=== PATIENT | female | born 1990 | race Caucasian/White ===

== ENCOUNTER 2020-08-09 12:19 | Emergency (ER) | payer MEDICARE, MEDICAID, SELFPAY | END 2020-08-09 14:47 | disposition left against medical advice (07) | LOC: HO.ED 14:36 | PROVIDERS: Emergency Provider Internal Medicine; PCP Family Medicine | DX: K92.2 Gastrointestinal hemorrhage, unspecified (principal) | CPT/HCPCS: 99281 ==

== ENCOUNTER 2020-08-13 14:27 | Emergency (ER) | payer MEDICARE, MEDICAID, SELFPAY ==
--- NOTE | 2020-08-13 14:36 | ED.GIBLEED ---
HPI - GI Bleed General Chief complaint: GI Bleed Stated complaint: vomiting Time Seen by Provider: 08/13/20 14:30 Source: patient and EMS Mode of arrival: ambulatory Limitations: no limitations History of Present Illness HPI Narrative: patient history of alcoholic liver disease been vomiting blood for last 2 months off and on had endoscopy done in 05/24 which showed gastritis no varices seen no active bleeding been seen here several times for upper GI bleed all his goes AMA this time she he comes here for same with increased bleeding for last few days with blood clots patient did not have doing for last 2 days patient also claims that she been bleeding per rectum also joshua ayala MD complaint: gross hematemesis and gross hematochezia Onset (ago): month(s) (2) Pain Consistency: intermittent Severity: moderate Relieving factors: none Exacerbating factors: none Context: history of GI bleed, liver disease and hemorrhoids Associated symptoms: abdominal pain, nausea and vomiting Related Data Previous Rx's Medication Instructions Recorded pantoprazole 40 mg tablet,delayed 40 mg PO DAILY #1 tab 08/13/20 release sucralfate 100 mg/mL oral 10 ml PO BID #420 ml 08/13/20 suspension Allergies Allergy/AdvReac Type Severity Reaction Status Date / Time morphine [MORPHINE] Allergy Mild HIVES Unverified 07/22/20 17:44 banana [BANANA] AdvReac Severe DIFFICULTY Unverified 07/22/20 17:44 BREATHING morphine and related Allergy Unknown Uncoded 07/06/20 00:00 Review of Systems Review of Systems: REVIEW OF SYSTEMS: Pertinent positives and negatives are stated above in the history. GEN: no fevers, chills, fatigue HEENT: no nasal congestion, sore throat, ear pain NEURO: no headache, dizziness, focal weakness PULM: no cough, shortness of breath CV: no chest pain, palpitations, LE edema ABD: no diarrhea : no dysuria, urgency, frequency SKIN: no rash ROS otherwise negative x 10 PMFSH Past Medical History Medical History Asthma CHF (congestive heart failure) CVA (cerebral vascular accident) GI bleed Hepatitis Seizures Social History Social History Smoked in Last 30 Days: No Advance Directives: No Advance Directives Information Provided: Yes Physical Exam Vital Signs and I&O and Narrative: Vital Signs and I&O: Vital Signs Temp 98.5 F 08/13/20 14:42 Pulse 104 H 08/13/20 14:42 Resp 14 08/13/20 15:23 BP 108/69 08/13/20 14:42 Intake & Output 08/12/20 08/13/20 08/13/20 18:59 06:59 18:59 Weight 63.701 kg Body Mass Index 22.6 Appearance: Alert. Oriented X3. No acute distress. Eyes: Pupils equal, round and reactive to light. pallor++, icterus + ENT: Pharynx normal. Neck: Normal inspection. Neck supple. CVS: Normal heart rate and rhythm. Pulses normal. Respiratory: No respiratory distress. Breath sounds normal. Abdomen: Soft and tender epigastric area. , rectal: brown stool , hemoccult +ve Skin: Skin warm and dry. Normal skin color. Normal skin turgor. Extremities: No lower extremity edema NT , Good ROM. Neuro: Oriented X 3. No motor deficit. No sensory deficit.no asterixis Course Course Course Narrative: with upper GI bleed for last 2 months hemoglobin stable at 10 as she received 2 units of blood on 08/04. Patient did not vomit blood in the ER guaiac test is positive. Patient signed out to Dr. Townsend plan to admit, hospitalist aware MDM - GI Bleed Lab Data Result diagrams: 08/13/20 15:20 08/13/20 15:44 Labs: Lab Results 08/13/20 08/13/20 08/13/20 Range/Units 15:20 15:20 15:20 WBC 8.5 (4.8-10.8) X10*3/uL RBC 3.38 L (4.20-5.50) X10*6/uL Hgb 10.0 L (12.0-16.0) g/dl Hct 31.1 L (37-47) % MCV 92.0 (80-98) fL MCH 29.6 (27.0-33.0) pg MCHC 32.2 (31.0-35.0) g/dl RDW 20.7 H (11.0-16.0) % Plt Count 163 (160-400) X10*3/uL MPV 9.9 (9.4-12.3) fL Immature Gran % (Auto) 0.5 H (0.0-0.4) % Neut % (Auto) 74.0 H (45-73) % Lymph % (Auto) 18.1 L (20-40) % [place] % (Auto) 5.8 (2-11) % Eos % (Auto) 0.8 (0-4) % Baso % (Auto) 0.8 (0-2) % Lymph # (Auto) 1.5 (1.2-4.9) X10*3/uL [place] # (Auto) 0.5 (0.1-1.2) X10*3/uL Eos # (Auto) 0.1 (0.0-0.4) X10*3/uL Baso # (Auto) 0.1 (0.0-0.2) X10*3/uL Abs Immat Gran (auto) 0.04 H (0.00-0.03) X10*3/uL Absolute Neuts (auto) 6.3 (2.0-8.3) X10*3/uL Absolute Nucleated RBC 0.000 (0.0-0.012) X10*3/uL Nucleated RBC % (auto) 0.0 (0.0-0.2) /100WBC Sodium Cancelled Potassium Cancelled Chloride Cancelled Carbon Dioxide Cancelled Anion Gap Cancelled BUN Cancelled Creatinine Cancelled Estim Creat Clear Calc Cancelled Estimated GFR Cancelled Random Glucose Cancelled Calcium Cancelled Total Bilirubin Cancelled Direct Bilirubin Cancelled AST Cancelled ALT Cancelled Alkaline Phosphatase Cancelled Ammonia 54 (13-55) umol/L Total Protein Cancelled Albumin Cancelled Lipase Cancelled Ethyl Alcohol mg/dL 08/13/20 Range/Units 15:20 WBC (4.8-10.8) X10*3/uL RBC (4.20-5.50) X10*6/uL Hgb (12.0-16.0) g/dl Hct (37-47) % MCV (80-98) fL MCH (27.0-33.0) pg MCHC (31.0-35.0) g/dl RDW (11.0-16.0) % Plt Count (160-400) X10*3/uL MPV (9.4-12.3) fL Immature Gran % (Auto) (0.0-0.4) % Neut % (Auto) (45-73) % Lymph % (Auto) (20-40) % [place] % (Auto) (2-11) % Eos % (Auto) (0-4) % Baso % (Auto) (0-2) % Lymph # (Auto) (1.2-4.9) X10*3/uL [place] # (Auto) (0.1-1.2) X10*3/uL Eos # (Auto) (0.0-0.4) X10*3/uL Baso # (Auto) (0.0-0.2) X10*3/uL Abs Immat Gran (auto) (0.00-0.03) X10*3/uL Absolute Neuts (auto) (2.0-8.3) X10*3/uL Absolute Nucleated RBC (0.0-0.012) X10*3/uL Nucleated RBC % (auto) (0.0-0.2) /100WBC Sodium Potassium Chloride Carbon Dioxide Anion Gap BUN Creatinine Estim Creat Clear Calc Estimated GFR Random Glucose Calcium Total Bilirubin Direct Bilirubin AST ALT Alkaline Phosphatase Ammonia (13-55) umol/L Total Protein Albumin Lipase Ethyl Alcohol 182 mg/dL Discharge Plan Discharge Clinical Impression: Upper gastrointestinal hemorrhage, Acute alcoholic gastritis with hemorrhage Anemia Qualifiers: Anemia type: iron deficiency Iron deficiency anemia type: chronic blood loss Qualified Code(s): D50.0 - Iron deficiency anemia secondary to blood loss (chronic) Patient Disposition: Admitted As Inpatient
--- NOTE | 2020-08-13 14:37 | XR_ITS ---
EXAMINATION: XR CHEST CLINICAL INFORMATION: Hematemesis COMPARISON: Previous x-ray most recent July 2020 TECHNIQUE: Frontal view of the chest was obtained. FINDINGS: No significant abnormality is noted involving the heart, lungs, mediastinum, bony thorax or soft tissues. IMPRESSION: Unremarkable examination.
[2020-08-13 14:42] VITALS: BP 108/69; PULSE 104; RESP 18; TEMP 36.9; BMI 22.6
[2020-08-13 15:23] VITALS: RESP 14
[2020-08-13] MEDS: ondansetron HCL 4 MG/2 ML VIAL IVPUSH (15:23)
[2020-08-13] MEDS: 0.9 % Sodium Chloride 1,000 ML 999 ML IVCONT (15:23)
[2020-08-13] MEDS: HYDROmorphone HCl 1 MG/ML SYRINGE IVPUSH (15:23)
[2020-08-13] MEDS: Pantoprazole Sodium 40 MG/10 ML VIAL IVPUSH (15:23)
[2020-08-13 15:25] LABS: MANUAL DIFF FLAG NO
[2020-08-13 15:32] LABS: Basophils Absolute Auto 0.1 X10*3/uL (0.0-0.2); Basophils Percent Auto 0.8 % (0-2); Eosinophils Absolute Auto 0.1 X10*3/uL (0.0-0.4); Eosinophils Percent Auto 0.8 % (0-4); Hematocrit 31.1 % (37-47); Imm Gran Abs Auto 0.04 X10*3/uL (0.00-0.03); Imm Gran Pct Auto 0.5 % (0.0-0.4); Lymphocytes Absolute Auto 1.5 X10*3/uL (1.2-4.9); Lymphocytes Percent Auto 18.1 % (20-40); Mean Corpuscular HGB Conc 32.2 g/dl (31.0-35.0); Mean Corpuscular Hemoglobin 29.6 pg (27.0-33.0); Mean Platelet Volume 9.9 fL (9.4-12.3); Monocytes Absolute Auto 0.5 X10*3/uL (0.1-1.2); Monocytes Percent Auto 5.8 % (2-11); Neutrophils Absolute Auto 6.3 X10*3/uL (2.0-8.3); Platelet Count 163 X10*3/uL (160-400); Red Blood Count 3.38 X10*6/uL (4.20-5.50); Red Cell Distribution Width 20.7 % (11.0-16.0); White Blood Count 8.5 X10*3/uL (4.8-10.8)
[2020-08-13 15:52] LABS: Ammonia 54 umol/L (13-55)
[2020-08-13 15:56] LABS: Ethanol 182 mg/dL
[2020-08-13 16:27] LABS: Alanine Aminotransferase 25 U/L (0-31); Albumin Level 2.9 g/dL (3.5-5.0); Alkaline Phosphatase 296 U/L (39-117); Anion Gap 12 (12-20); Aspartate Amino Transferase 110 U/L (5-31); Bilirubin Direct 0.8 mg/dL (0.0-0.5); Blood Urea Nitrogen 3 mg/dL (9-16); Calcium 7.5 mg/dL (8.4-10.2); Carbon Dioxide 21 mmol/L (22-29); Chloride 109 mmol/L (96-108); Creatinine Clr Calc Pharmacy 153.9; Estimated Glomerular Filt Rate > 60; Glucose Random 84 mg/dL (60-115); Lipase 10 U/L (8-78); Magnesium 1.4 mg/dL (1.6-2.6); Potassium 3.2 mmol/l (3.3-5.1); Sodium 139 mmol/L (135-145); Total Protein 5.7 g/dL (6.5-8.0)
[2020-08-13 16:36] LABS: SARS COV2 PCR INHOUSE NEGATIVE (Negative)
[2020-08-13 16:42] LABS: Glucose Urine UA NEG (NEG); Leukocyte Esterase Urine NEG (NEG); Nitrite Urine NEG (NEG); Urine Blood NEG (NEG); Urine Ketones NEG (NEG); Urine Protein TRACE MG/DL (NEG-TRACE)
[2020-08-13 16:46] LABS: Appearance Urine HAZY; Color Urine AMBER
[2020-08-13 16:47] LABS: OBS Int Ctl Valid YES; OBS1 POS (NEG)
[2020-08-13 17:03] LABS: Amphetamine Screen Urine Not Detected (Not Detect); Barbiturates, Urine POSITIVE (Not Detect); Benzodiazepines Screen Urine Not Detected (Not Detect); Cannabinoid Screen Urine POSITIVE (Not Detect); Cocaine Screen Urine Not Detected (Not Detect); Opiate Screen Urine POSITIVE (Not Detect); Phencyclidine Screen Urine Not Detected (Not Detect)
[2020-08-13] MEDS: Potassium Chloride/H20 10 MEQ/100 ML PIGGYBACK 100 MEQ IV (17:17)
[2020-08-13] MEDS: Magnesium Sulfate/D5W 1 GM/100 ML PIGGYBACK IV (17:18)
--- NOTE | 2020-08-13 17:33 | P.HPIM_ITS ---
History of Present Illness Date of Service: 08/13/20 Chief Complaint: hematemesis this is a 30 year female with a history of alcoholic liver cirrhosis who presents to the emergency department with hematemesis. She was admitted multiple times recently in June and July for the same. during her last admission she left against medical advice on the 2nd day of her admission prior to scheduled EGD. She reports ongoing hematemesis and diffuse abdominal pain. She also reports a bright red blood per rectum. She denies fever chills. She continues to drink alcohol. Her H/ H was noted to be near her baseline. She was noted to have hypokalemia and hypo magnesemia. Her electrolytes were replaced and the decision was made to admit her for further management. Review of Systems Review of Systems: Yes all other systems are reviewed and are negative Constitutional: Constitutional: Denies chills and Denies fever(s) Cardiovascular: Cardiovascular: Denies chest pain Respiratory: Respiratory: Denies cough Gastrointestinal: Gastrointestinal: Reports hematochezia and Reports hematemesis FOR[facility]LY [facility], [facility] Medical History (Updated 08/13/20 @ 17:46 by FRANCIA Spence) Alcoholic cirrhosis of liver Asthma CHF (congestive heart failure) Chiari malformation CVA (cerebral vascular accident) Depression GI bleed Hepatitis C NSVT (nonsustained ventricular tachycardia) Peptic ulcer disease Seizure disorder Seizures Pertinent family history: coronary artery disease, stroke- father hypertension, diabetes - mother Surgical History (Updated 08/13/20 @ 17:46 by FRANCIA Spence) Gastric bypass status for obesity Hx of cholecystectomy Social History (Updated 08/13/20 @ 17:47 by FRANCIA Spence) Alcohol intake: current Alcohol intake frequency: 3 or more drinks per day Alcohol type: hard liquor Smoking Status: Current every day smoker Smoked in Last 30 Days: Yes Advance Directives: No Advance Directives Information Provided: Yes Meds Allergies Allergy/AdvReac Type Severity Reaction Status Date / Time morphine [MORPHINE] Allergy Mild HIVES Unverified 07/22/20 17:44 banana [BANANA] AdvReac Severe DIFFICULTY Unverified 07/22/20 17:44 BREATHING morphine and related Allergy Unknown Uncoded 07/06/20 00:00 Physical Exam Vital Signs and Narrative: Vital Signs: Last Vital Signs Temp 98.5 F 08/13/20 14:42 Pulse 104 H 08/13/20 14:42 Resp 14 08/13/20 15:23 BP 108/69 08/13/20 14:42 Body Mass Index 22.6 Const: Nutritional Appearance: well nourished Orientation/consciousness: patient oriented x3 HENMT: Head: Yes normocephalic and Yes atraumatic Eyes: Sclerae: sclerae normal Chest: Chest palpation & inspection: normal inspection of the chest Resp: Effort & Inspection: normal respiratory effort and no respiratory distress Auscultation: clear to auscultation bilaterally Cardio: Rate: regular rate Rhythm: regular rhythm GI: Palpation (GI): Soft to palpation and nontender Skin: General skin exam: no rashes or lesions noted Neuro: General: patient oriented x3 Cranial nerves: Yes CN's II-XII intact bilaterally and Yes Bilaterally intact EOM present Extrem: General: Yes normal to inspection Results Labs Labs: Laboratory Tests 08/13/20 08/13/20 08/13/20 15:20 15:20 15:20 WBC 8.5 RBC 3.38 L Hgb 10.0 L Hct 31.1 L MCV 92.0 MCH 29.6 MCHC 32.2 RDW 20.7 H Plt Count 163 MPV 9.9 Immature Gran % (Auto) 0.5 H Neut % (Auto) 74.0 H Lymph % (Auto) 18.1 L [place] % (Auto) 5.8 Eos % (Auto) 0.8 Baso % (Auto) 0.8 Lymph # (Auto) 1.5 [place] # (Auto) 0.5 Eos # (Auto) 0.1 Baso # (Auto) 0.1 Abs Immat Gran (auto) 0.04 H Absolute Neuts (auto) 6.3 Absolute Nucleated RBC 0.000 Nucleated RBC % (auto) 0.0 Sodium Cancelled Potassium Cancelled Chloride Cancelled Carbon Dioxide Cancelled Anion Gap Cancelled BUN Cancelled Creatinine Cancelled Estim Creat Clear Calc Cancelled Estimated GFR Cancelled Random Glucose Cancelled Calcium Cancelled Magnesium Total Bilirubin Cancelled Direct Bilirubin Cancelled AST Cancelled ALT Cancelled Alkaline Phosphatase Cancelled Ammonia 54 Total Protein Cancelled Albumin Cancelled Lipase Cancelled Urine Color Urine Appearance Urine pH Ur Specific [place] Urine Protein Urine Glucose (UA) Urine Ketones Urine Blood Urine Nitrite Ur Leukocyte Esterase Stool Occult Blood Urine Opiates Screen Ur Barbiturates Screen Ur Phencyclidine Scrn Ur Amphetamines Screen U Benzodiazepines Scrn Urine Cocaine Screen U Marijuana (THC) Screen Ethyl Alcohol Coronavirus (PCR) Blood Type Antibody Screen 08/13/20 08/13/20 08/13/20 15:20 15:20 15:44 WBC RBC Hgb Hct MCV MCH MCHC RDW Plt Count MPV Immature Gran % (Auto) Neut % (Auto) Lymph % (Auto) [place] % (Auto) Eos % (Auto) Baso % (Auto) Lymph # (Auto) [place] # (Auto) Eos # (Auto) Baso # (Auto) Abs Immat Gran (auto) Absolute Neuts (auto) Absolute Nucleated RBC Nucleated RBC % (auto) Sodium 139 Potassium 3.2 L Chloride 109 H Carbon Dioxide 21 L Anion Gap 12 BUN 3 L Creatinine 0.50 Estim Creat Clear Calc 153.9 Estimated GFR > 60 Random Glucose 84 Calcium 7.5 L Magnesium 1.4 L* Total Bilirubin 1.0 Direct Bilirubin 0.8 H AST 110 H ALT 25 Alkaline Phosphatase 296 H Ammonia Total Protein 5.7 L Albumin 2.9 L Lipase 10 Urine Color Urine Appearance Urine pH Ur Specific [place] Urine Protein Urine Glucose (UA) Urine Ketones Urine Blood Urine Nitrite Ur Leukocyte Esterase Stool Occult Blood Urine Opiates Screen Ur Barbiturates Screen Ur Phencyclidine Scrn Ur Amphetamines Screen U Benzodiazepines Scrn Urine Cocaine Screen U Marijuana (THC) Screen Ethyl Alcohol 182 Coronavirus (PCR) NEGATIVE Blood Type Antibody Screen 08/13/20 08/13/20 08/13/20 15:44 16:10 16:10 WBC RBC Hgb Hct MCV MCH MCHC RDW Plt Count MPV Immature Gran % (Auto) Neut % (Auto) Lymph % (Auto) [place] % (Auto) Eos % (Auto) Baso % (Auto) Lymph # (Auto) [place] # (Auto) Eos # (Auto) Baso # (Auto) Abs Immat Gran (auto) Absolute Neuts (auto) Absolute Nucleated RBC Nucleated RBC % (auto) Sodium Potassium Chloride Carbon Dioxide Anion Gap BUN Creatinine Estim Creat Clear Calc Estimated GFR Random Glucose Calcium Magnesium Total Bilirubin Direct Bilirubin AST ALT Alkaline Phosphatase Ammonia Total Protein Albumin Lipase Urine Color PATO Urine Appearance HAZY Urine pH 6.0 Ur Specific [place] 1.020 Urine Protein TRACE Urine Glucose (UA) NEG Urine Ketones NEG Urine Blood NEG Urine Nitrite NEG Ur Leukocyte Esterase NEG Stool Occult Blood Urine Opiates Screen POSITIVE H Ur Barbiturates Screen POSITIVE H Ur Phencyclidine Scrn Not Detected Ur Amphetamines Screen Not Detected U Benzodiazepines Scrn Not Detected Urine Cocaine Screen Not Detected U Marijuana (THC) Screen POSITIVE H Ethyl Alcohol Coronavirus (PCR) Blood Type O Negative Antibody Screen NEGATIVE 08/13/20 16:10 WBC RBC Hgb Hct MCV MCH MCHC RDW Plt Count MPV Immature Gran % (Auto) Neut % (Auto) Lymph % (Auto) [place] % (Auto) Eos % (Auto) Baso % (Auto) Lymph # (Auto) [place] # (Auto) Eos # (Auto) Baso # (Auto) Abs Immat Gran (auto) Absolute Neuts (auto) Absolute Nucleated RBC Nucleated RBC % (auto) Sodium Potassium Chloride Carbon Dioxide Anion Gap BUN Creatinine Estim Creat Clear Calc Estimated GFR Random Glucose Calcium Magnesium Total Bilirubin Direct Bilirubin AST ALT Alkaline Phosphatase Ammonia Total Protein Albumin Lipase Urine Color Urine Appearance Urine pH Ur Specific [place] Urine Protein Urine Glucose (UA) Urine Ketones Urine Blood Urine Nitrite Ur Leukocyte Esterase Stool Occult Blood POS Urine Opiates Screen Ur Barbiturates Screen Ur Phencyclidine Scrn Ur Amphetamines Screen U Benzodiazepines Scrn Urine Cocaine Screen U Marijuana (THC) Screen Ethyl Alcohol Coronavirus (PCR) Blood Type Antibody Screen Assessment and Plan (1) Acute alcoholic gastritis with hemorrhage: Status: Acute this is a 38-year-old female with a history of alcoholic liver cirrhosis who presents to the emergency department with Hematemesis hematemesis in the setting of alcoholic liver cirrhosis and history of PUD no known esophageal varices - IV Protonix - GI consult - NPO at midnight - follow CBC alcohol dependence evidence of alcohol withdrawal at this time - phenobarbital - thiamine, folate supplementation hypokalemia, hypo magnesemia related to alcohol use - tele monitoring - EKG - replace and follow DVT prophylaxis- mechanical devices code status- full code this case was discussed with Dr. Lerner
--- NOTE | 2020-08-13 17:35 | PM.EVENT ---
Event Note Event Note: Admission note Date of service 08/13/2020 the patient was seen and evaluated with FRANCIA Mas. I agree with her note, assessment and plan with the following. In summary, A 30 years old female with PMH of alcohol abuse, hepatitis-C, PUD, stroke with right-sided weakness, diabetes, post gastric bypass, portal hypertension among others who presents to the hospital complaining of hematemesis and blood per rectum. The patient reported excessive drinking alcohol of 12 nibs today along with few beers. She reported multiple episodes of vomiting over the last few weeks which she has been trying to prevent by holding down. For the last 2 days she noted blood with stool. She denies any fever, chills, shortness of breath or cough, chest pain. Hb levels higher than previous admission. the story is exactly the same as previous admission last month. Hematemesis GI bleeding Secondary to alcohol abuse Stable H&H, to monitor Started on IV Protonix Hold on transfusion Keep NPO after midnight Gentle IV fluid GI evaluation Rest of evaluations by FRANCIA note.
[2020-08-13 17:45] LABS: UPreg QC Valid YES; Urine Pregnancy NEGATIVE (NEGATIVE)
--- NOTE | 2020-08-13 18:15 | PC.NURSE ---
Pt voiced discontent with not having dilaudid ordered as part of her pain med regimen. Pt informed she was about to receive phenobarbitol. She stated she was ready to leave and no longer wants to be admitted. She removed her own meds infusing. This RN removed IV lines. Pt stated she would not sign AMA papertwork.
== END 2020-08-13 20:27 | disposition left against medical advice (07) ==
PROVIDERS: Emergency Provider Internal Medicine; PCP Family Medicine
DX: K29.21 Alcoholic gastritis with bleeding (principal); D50.0 Iron deficiency anemia secondary to blood loss (chronic); F10.129 Alcohol abuse with intoxication, unspecified; Y90.6 Blood alcohol level of 120-199 mg/100 ml; Z71.41 Alcohol abuse counseling and surveillance of alcoholic; Z79.899 Other long term (current) drug therapy; Z03.818 Encounter for observation for suspected exposure to other biological agents ruled out
CPT/HCPCS: 36415; 71045; 80048; 80076; 80307; 80320; 81003; 81025; 82140; 82272; 83690; 83735; 85025; 86850; 86900; 86901; 87635; 96361; 96365; 96372; 96375; 99284; J1170; J2405; J3475

== ENCOUNTER 2020-08-24 12:39 | Inpatient (IN) | payer MEDICARE, MEDICAID, SELFPAY ==
[2020-08-24 13:00] VITALS: BP 110/70; BP 98/53; PULSE 114; RESP 16; TEMP 37.8; O2SAT 100; BMI 22.6
--- NOTE | 2020-08-24 13:08 | ED.ABDPAIN ---
HPI - Abdominal Pain General Chief Complaint: Abdominal Pain Stated Complaint: R ABD PAIN, BLOOD URINE/STOOL Time Seen by Provider: 08/24/20 13:05 Source: patient Mode of arrival: ambulatory Limitations: no limitations History of Present Illness HPI narrative: 30 y/o female with history of heavy alcohol abuse with liver cirrhosis and ascites, hepatitis C, PUD, portal hypertesnion, s/p gastric bypass, hx CVA with right sided weakness, asthma, gastritis, GI bleed with acute blood loss anemia, hx hemorrhoids, NSVT, hx colitis who is presenting with right sided abdominal pain, N/V, diarrhea, bloody BM's and fevers at home. Also reports dark urine and decreased urination. Unable to tolerate PO at home. Has been able to drink ETOH, last was yeserday at 3pm. When she doesn't drink within 24 hours she starts to withdraw and have hallucinations. Related Data Previous Rx's Medication Instructions Recorded pantoprazole 40 mg tablet,delayed 40 mg PO DAILY #1 tab 08/17/20 release sucralfate 100 mg/mL oral 10 ml PO BID #420 ml 08/17/20 suspension trazodone 50 mg tablet 50 mg PO BEDTIME PRN 30 Days #30 08/17/20 tab Allergies Allergy/AdvReac Type Severity Reaction Status Date / Time morphine [MORPHINE] Allergy Mild HIVES Unverified 07/22/20 17:44 banana [BANANA] AdvReac Severe DIFFICULTY Unverified 07/22/20 17:44 BREATHING morphine and related Allergy Unknown Uncoded 07/06/20 00:00 Review of Systems Review of Systems Constitutional: + Fever, + Chills ENT/Mouth: No sore throat, No Rhinorrhea, No Swallowing Difficulty Eyes: No Eye Pain, No Swelling, No Redness Cardiovascular: No Chest Pain, No SOB, No Orthopnea, No Edema Respiratory: No Cough, No Sputum, No Wheezing, No dyspnea Gastrointestinal: + Nausea, + Vomiting, + Diarrhea, +abdominal Pain, + Hematochezia, + Melena Genitourinary: No Dysuria, No Urinary Frequency, + Hematuria Musculoskeletal: No joint pain, No Myalgias Skin: No Skin Lesions, No rash Neuro: No Weakness, No Numbness, No Dizziness, No Headache Psych: + Anxiety/Panic, + Depression Heme/Lymph: + Bruising, No Lymphadenopathy Endocrine: No Polyuria, No Polydipsia Physical Exam Vital Signs: Vital Signs: Vital Signs Temp Pulse Resp BP Pulse Ox 08/24/20 15:28 99 F 67 17 93/47 L 97 08/24/20 13:00 100.0 F 114 H 16 98/53 L 100 Body Mass Index 22.6 Appearance: Alert. Oriented X3. Tearful Eyes: Pupils equal, round and reactive to light. ENT: Pharynx normal. Neck: Normal inspection. Neck supple. CVS: tachycardic, regular rhythm. Pulses normal. Respiratory: No respiratory distress. Breath sounds normal. Abdomen: Soft, hepatomegaly, tender throughout right side of her abdomen. +guarding. +BS x4 ANA LUISA: external hemorrhoids, tender with thrombosis, no bleeding, light brown stool. Skin: Skin warm and dry. Normal skin color. Normal skin turgor. No rashes. Extremities: No lower extremity edema. Neuro: Oriented X 3. No motor deficit. No sensory deficit. Course Course Course Narrative: chronically ill young female with alcoholic liver disease - presenting with abd pain, N/V, GI bleeding. Has history of similar presentations, last end of Jul and left AMA before EGD could be performed. She state she has been dirnking heavily still and now having worsening pain, low grade fevers and GI bleeding - dark and red mixed for several days now. No SOB, chest pain, cough or other COVID symptoms. H/H stable from prior, does not require transfusion at this time. LFTs are up significantly from prior. hepatic discriminant function only 13, no role for steroids. given IVF and zosyn for possible infection - she reports urinary symptoms and has abd pain with history of ascites, possible SBP. CT scan showing probable cirrhosis and question colitis. Will treat given fever and new leukocytosis. Spoke with patient about admission and she is agreeable at this time. Hospitalist called for admission. Reevaluation(s) Reevaluation #1: patient continued to be nauseous after zofran and ativan. she is concerned she might be starting to withdraw from alcohol. additional ativan and antiemetics ordered. she is incontinent of stool at this time. flagyl added for colitis. Time: 16:21 Reevaluation #2: Spoke with hospitalist about admission - requesting phenobabital protocol for etoh withdrawal which was ordered. Will admit for further management. Time: 16:48 MDM - Abdominal Pain Lab Data Result diagrams: 08/24/20 13:46 08/24/20 14:25 Labs: Lab Results 08/24/20 08/24/20 08/24/20 Range/Units 13:46 13:46 13:47 WBC 13.5 H (4.8-10.8) X10*3/uL RBC 3.08 L (4.20-5.50) X10*6/uL Hgb 9.5 L (12.0-16.0) g/dl Hct 29.2 L (37-47) % MCV 94.8 (80-98) fL MCH 30.8 (27.0-33.0) pg MCHC 32.5 (31.0-35.0) g/dl RDW 20.1 H (11.0-16.0) % Plt Count 90 L D (160-400) X10*3/uL MPV 10.4 (9.4-12.3) fL Immature Gran % (Auto) 0.8 H (0.0-0.4) % Neut % (Auto) 83.2 H (45-73) % Lymph % (Auto) 9.9 L (20-40) % [place] % (Auto) 5.3 (2-11) % Eos % (Auto) 0.4 (0-4) % Baso % (Auto) 0.4 (0-2) % Lymph # (Auto) 1.3 (1.2-4.9) X10*3/uL [place] # (Auto) 0.7 (0.1-1.2) X10*3/uL Eos # (Auto) 0.1 (0.0-0.4) X10*3/uL Baso # (Auto) 0.1 (0.0-0.2) X10*3/uL Abs Immat Gran (auto) 0.11 H (0.00-0.03) X10*3/uL Absolute Neuts (auto) 11.2 H (2.0-8.3) X10*3/uL Absolute Nucleated RBC 0.000 (0.0-0.012) X10*3/uL Nucleated RBC % (auto) 0.0 (0.0-0.2) /100WBC PT Cancelled INR Cancelled APTT Cancelled Sodium (135-145) mmol/L Potassium (3.3-5.1) mmol/l Chloride (96-108) mmol/L Carbon Dioxide (22-29) mmol/L Anion Gap (12-20) BUN (9-16) mg/dL Creatinine (0.5-1.4) mg/dL Estim Creat Clear Calc Estimated GFR Random Glucose (60-115) mg/dL Lactic Acid (0.5-2.0) mmol/L Calcium (8.4-10.2) mg/dL Total Bilirubin (0.0-1.0) mg/dL Direct Bilirubin (0.0-0.5) mg/dL AST (5-31) U/L ALT (0-31) U/L Alkaline Phosphatase (39-117) U/L B-Natriuretic Peptide 57 (<100) pg/mL Total Protein (6.5-8.0) g/dL Albumin (3.5-5.0) g/dL Lipase (8-78) U/L Urine Color Urine Appearance Urine pH (5.0-8.0) Ur Specific [place] (1.005-1.025) Urine Protein (NEG-TRACE) MG/DL Urine Glucose (UA) (NEG) MG/DL Urine Ketones (NEG) MG/DL Urine Blood (NEG) Urine Nitrite (NEG) Ur Leukocyte Esterase (NEG) Urine RBC (0) /HPF Urine WBC (0-4) /HPF Ur Squamous Epith Cells /LPF Urine Bacteria /LPF Urine Mucus /LPF Urine Test (NEGATIVE) Stool Occult Blood (NEG) Urine Opiates Screen (Not Detect) Ur Barbiturates Screen (Not Detect) Ur Phencyclidine Scrn (Not Detect) Ur Amphetamines Screen (Not Detect) U Benzodiazepines Scrn (Not Detect) Urine Cocaine Screen (Not Detect) U Marijuana (THC) Screen (Not Detect) Ethyl Alcohol mg/dL Blood Type Antibody Screen 08/24/20 08/24/20 08/24/20 Range/Units 13:48 13:57 13:57 WBC (4.8-10.8) X10*3/uL RBC (4.20-5.50) X10*6/uL Hgb (12.0-16.0) g/dl Hct (37-47) % MCV (80-98) fL MCH (27.0-33.0) pg MCHC (31.0-35.0) g/dl RDW (11.0-16.0) % Plt Count (160-400) X10*3/uL MPV (9.4-12.3) fL Immature Gran % (Auto) (0.0-0.4) % Neut % (Auto) (45-73) % Lymph % (Auto) (20-40) % [place] % (Auto) (2-11) % Eos % (Auto) (0-4) % Baso % (Auto) (0-2) % Lymph # (Auto) (1.2-4.9) X10*3/uL [place] # (Auto) (0.1-1.2) X10*3/uL Eos # (Auto) (0.0-0.4) X10*3/uL Baso # (Auto) (0.0-0.2) X10*3/uL Abs Immat Gran (auto) (0.00-0.03) X10*3/uL Absolute Neuts (auto) (2.0-8.3) X10*3/uL Absolute Nucleated RBC (0.0-0.012) X10*3/uL Nucleated RBC % (auto) (0.0-0.2) /100WBC PT INR APTT Sodium (135-145) mmol/L Potassium (3.3-5.1) mmol/l Chloride (96-108) mmol/L Carbon Dioxide (22-29) mmol/L Anion Gap (12-20) BUN (9-16) mg/dL Creatinine (0.5-1.4) mg/dL Estim Creat Clear Calc Estimated GFR Random Glucose (60-115) mg/dL Lactic Acid 2.9 H* (0.5-2.0) mmol/L Calcium (8.4-10.2) mg/dL Total Bilirubin (0.0-1.0) mg/dL Direct Bilirubin (0.0-0.5) mg/dL AST (5-31) U/L ALT (0-31) U/L Alkaline Phosphatase (39-117) U/L B-Natriuretic Peptide (<100) pg/mL Total Protein (6.5-8.0) g/dL Albumin (3.5-5.0) g/dL Lipase (8-78) U/L Urine Color ORANGE Urine Appearance CLOUDY Urine pH 6.5 (5.0-8.0) Ur Specific [place] 1.020 (1.005-1.025) Urine Protein 2+ H (NEG-TRACE) MG/DL Urine Glucose (UA) 100 H (NEG) MG/DL Urine Ketones 15 (NEG) MG/DL Urine Blood TRACE (NEG) Urine Nitrite POS H (NEG) Ur Leukocyte Esterase TRACE H (NEG) Urine RBC 0-2 (0) /HPF Urine WBC 0 (0-4) /HPF Ur Squamous Epith Cells 2+ /LPF Urine Bacteria NONE /LPF Urine Mucus 3+ /LPF Urine Test NEGATIVE (NEGATIVE) Stool Occult Blood (NEG) Urine Opiates Screen Not Detected (Not Detect) Ur Barbiturates Screen POSITIVE H (Not Detect) Ur Phencyclidine Scrn Not Detected (Not Detect) Ur Amphetamines Screen Not Detected (Not Detect) U Benzodiazepines Scrn Not Detected (Not Detect) Urine Cocaine Screen Not Detected (Not Detect) U Marijuana (THC) Screen POSITIVE H (Not Detect) Ethyl Alcohol mg/dL Blood Type Antibody Screen 08/24/20 08/24/20 08/24/20 Range/Units 14:24 14:25 14:25 WBC (4.8-10.8) X10*3/uL RBC (4.20-5.50) X10*6/uL Hgb (12.0-16.0) g/dl Hct (37-47) % MCV (80-98) fL MCH (27.0-33.0) pg MCHC (31.0-35.0) g/dl RDW (11.0-16.0) % Plt Count (160-400) X10*3/uL MPV (9.4-12.3) fL Immature Gran % (Auto) (0.0-0.4) % Neut % (Auto) (45-73) % Lymph % (Auto) (20-40) % [place] % (Auto) (2-11) % Eos % (Auto) (0-4) % Baso % (Auto) (0-2) % Lymph # (Auto) (1.2-4.9) X10*3/uL [place] # (Auto) (0.1-1.2) X10*3/uL Eos # (Auto) (0.0-0.4) X10*3/uL Baso # (Auto) (0.0-0.2) X10*3/uL Abs Immat Gran (auto) (0.00-0.03) X10*3/uL Absolute Neuts (auto) (2.0-8.3) X10*3/uL Absolute Nucleated RBC (0.0-0.012) X10*3/uL Nucleated RBC % (auto) (0.0-0.2) /100WBC PT INR APTT Sodium 137 (135-145) mmol/L Potassium 3.0 L (3.3-5.1) mmol/l Chloride 104 (96-108) mmol/L Carbon Dioxide 22 (22-29) mmol/L Anion Gap 14 (12-20) BUN 8 L D (9-16) mg/dL Creatinine 0.57 (0.5-1.4) mg/dL Estim Creat Clear Calc 135.1 Estimated GFR > 60 Random Glucose 90 (60-115) mg/dL Lactic Acid (0.5-2.0) mmol/L Calcium 8.1 L (8.4-10.2) mg/dL Total Bilirubin 3.8 H (0.0-1.0) mg/dL Direct Bilirubin 3.0 H (0.0-0.5) mg/dL AST 112 H (5-31) U/L ALT 24 (0-31) U/L Alkaline Phosphatase 310 H (39-117) U/L B-Natriuretic Peptide (<100) pg/mL Total Protein 6.2 L (6.5-8.0) g/dL Albumin 3.0 L (3.5-5.0) g/dL Lipase 7 L (8-78) U/L Urine Color Urine Appearance Urine pH (5.0-8.0) Ur Specific [place] (1.005-1.025) Urine Protein (NEG-TRACE) MG/DL Urine Glucose (UA) (NEG) MG/DL Urine Ketones (NEG) MG/DL Urine Blood (NEG) Urine Nitrite (NEG) Ur Leukocyte Esterase (NEG) Urine RBC (0) /HPF Urine WBC (0-4) /HPF Ur Squamous Epith Cells /LPF Urine Bacteria /LPF Urine Mucus /LPF Urine Test (NEGATIVE) Stool Occult Blood (NEG) Urine Opiates Screen (Not Detect) Ur Barbiturates Screen (Not Detect) Ur Phencyclidine Scrn (Not Detect) Ur Amphetamines Screen (Not Detect) U Benzodiazepines Scrn (Not Detect) Urine Cocaine Screen (Not Detect) U Marijuana (THC) Screen (Not Detect) Ethyl Alcohol 29 mg/dL Blood Type O Negative Antibody Screen NEGATIVE 08/24/20 Range/Units 16:22 WBC (4.8-10.8) X10*3/uL RBC (4.20-5.50) X10*6/uL Hgb (12.0-16.0) g/dl Hct (37-47) % MCV (80-98) fL MCH (27.0-33.0) pg MCHC (31.0-35.0) g/dl RDW (11.0-16.0) % Plt Count (160-400) X10*3/uL MPV (9.4-12.3) fL Immature Gran % (Auto) (0.0-0.4) % Neut % (Auto) (45-73) % Lymph % (Auto) (20-40) % [place] % (Auto) (2-11) % Eos % (Auto) (0-4) % Baso % (Auto) (0-2) % Lymph # (Auto) (1.2-4.9) X10*3/uL [place] # (Auto) (0.1-1.2) X10*3/uL Eos # (Auto) (0.0-0.4) X10*3/uL Baso # (Auto) (0.0-0.2) X10*3/uL Abs Immat Gran (auto) (0.00-0.03) X10*3/uL Absolute Neuts (auto) (2.0-8.3) X10*3/uL Absolute Nucleated RBC (0.0-0.012) X10*3/uL Nucleated RBC % (auto) (0.0-0.2) /100WBC PT INR APTT Sodium (135-145) mmol/L Potassium (3.3-5.1) mmol/l Chloride (96-108) mmol/L Carbon Dioxide (22-29) mmol/L Anion Gap (12-20) BUN (9-16) mg/dL Creatinine (0.5-1.4) mg/dL Estim Creat Clear Calc Estimated GFR Random Glucose (60-115) mg/dL Lactic Acid (0.5-2.0) mmol/L Calcium (8.4-10.2) mg/dL Total Bilirubin (0.0-1.0) mg/dL Direct Bilirubin (0.0-0.5) mg/dL AST (5-31) U/L ALT (0-31) U/L Alkaline Phosphatase (39-117) U/L B-Natriuretic Peptide (<100) pg/mL Total Protein (6.5-8.0) g/dL Albumin (3.5-5.0) g/dL Lipase (8-78) U/L Urine Color Urine Appearance Urine pH (5.0-8.0) Ur Specific [place] (1.005-1.025) Urine Protein (NEG-TRACE) MG/DL Urine Glucose (UA) (NEG) MG/DL Urine Ketones (NEG) MG/DL Urine Blood (NEG) Urine Nitrite (NEG) Ur Leukocyte Esterase (NEG) Urine RBC (0) /HPF Urine WBC (0-4) /HPF Ur Squamous Epith Cells /LPF Urine Bacteria /LPF Urine Mucus /LPF Urine Test (NEGATIVE) Stool Occult Blood POS (NEG) Urine Opiates Screen (Not Detect) Ur Barbiturates Screen (Not Detect) Ur Phencyclidine Scrn (Not Detect) Ur Amphetamines Screen (Not Detect) U Benzodiazepines Scrn (Not Detect) Urine Cocaine Screen (Not Detect) U Marijuana (THC) Screen (Not Detect) Ethyl Alcohol mg/dL Blood Type Antibody Screen Discharge Plan Discharge Clinical Impression: Colitis, Acute alcoholic hepatitis, Acute GI bleeding, Hemorrhoids, Alcohol withdrawal Patient Disposition: Admitted As Inpatient Prescriptions: No Action trazodone 50 mg tablet 50 mg PO BEDTIME PRN (Reason: insomnia) 30 Days Qty: 30 RF: 0 sucralfate 100 mg/mL suspension 10 ml PO BID Qty: 420 RF: 1 pantoprazole 40 mg tablet,delayed release (DR/EC) 40 mg PO DAILY Qty: 1 RF: 3 PMFSH Past Medical History Attestation statement: The following information was validated with the patient. Medical History Alcoholic cirrhosis of liver Asthma CHF (congestive heart failure) Chiari malformation CVA (cerebral vascular accident) Depression GI bleed Hepatitis C NSVT (nonsustained ventricular tachycardia) Peptic ulcer disease Seizure disorder Seizures Surgical History (Updated 08/13/20 @ 17:46 by FRANCIA Spence) Gastric bypass status for obesity Hx of cholecystectomy Social History Social History (Updated 08/13/20 @ 17:47 by FRANCIA Spence) Alcohol intake: current Alcohol intake frequency: 3 or more drinks per day Alcohol type: beer and hard liquor Smoking Status: Current every day smoker Use of substances other than those prescribed or required for medical reasons: No Advance Directives: No Advance Directives Information Provided: No
[2020-08-24] MEDS: 0.9 % Sodium Chloride 1,000 ML 999 ML IVCONT ×2 (13:30→14:44)
[2020-08-24 13:53] LABS: MANUAL DIFF FLAG NO
--- NOTE | 2020-08-24 14:00 | PC.NURSE ---
PT ARRIVES VIA EMS C/O VOMITING SINCE YESTERDAY, HEMATURIA, ABD PAIN IN RUQ AND PELVIC AREA. RECENTLY DC'D FROM [facility] [place]. MILDLY JAUNDICED AT BASELINE, LABS DRAWN. 20G IN L HAND. FLUIDS HUNG.
[2020-08-24 14:04] LABS: Basophils Absolute Auto 0.1 X10*3/uL (0.0-0.2); Basophils Percent Auto 0.4 % (0-2); Eosinophils Absolute Auto 0.1 X10*3/uL (0.0-0.4); Eosinophils Percent Auto 0.4 % (0-4); Hematocrit 29.2 % (37-47); Hemoglobin 9.5 g/dl (12.0-16.0); Imm Gran Abs Auto 0.11 X10*3/uL (0.00-0.03); Imm Gran Pct Auto 0.8 % (0.0-0.4); Lymphocytes Absolute Auto 1.3 X10*3/uL (1.2-4.9); Lymphocytes Percent Auto 9.9 % (20-40); Mean Corpuscular HGB Conc 32.5 g/dl (31.0-35.0); Mean Corpuscular Hemoglobin 30.8 pg (27.0-33.0); Mean Corpuscular Volume 94.8 fL (80-98); Mean Platelet Volume 10.4 fL (9.4-12.3); Monocytes Absolute Auto 0.7 X10*3/uL (0.1-1.2); Monocytes Percent Auto 5.3 % (2-11); Neutrophils Absolute Auto 11.2 X10*3/uL (2.0-8.3); Neutrophils Percent Auto 83.2 % (45-73); Platelet Count 90 X10*3/uL (160-400); Red Blood Count 3.08 X10*6/uL (4.20-5.50); Red Cell Distribution Width 20.1 % (11.0-16.0); White Blood Count 13.5 X10*3/uL (4.8-10.8)
--- NOTE | 2020-08-24 14:09 | CT_ITS ---
EXAMINATION: CT ABDOMEN AND PELVIS WITH CONTRAST CLINICAL INFORMATION: Nausea, vomiting, diarrhea, fever and history of colitis. COMPARISON: None TECHNIQUE: Multidetector volumetric images were obtained from the superior aspect of the liver through the pubic symphysis following administration 85 mL of Omnipaque 350 intravenous contrast. Sagittal and coronal reformatted images were obtained on the technologist's workstation. Oral contrast: No This CT examination was performed using dose optimization techniques as appropriate, variously including the following: *Automated exposure control *Adjustment of mA and/or kV according to patient size (this includes techniques or standardized protocols for targeted exams where dose is matched to indication/reason for exam; i.e. extremities or head) *Use of iterative reconstruction technique DLP: 416 mGy-cm FINDINGS: LUNG BASES: The lung bases are clear. LIVER, GALLBLADDER, AND BILIARY TREE: The liver is enlarged in size, shape, and heterogeneous attenuation with areas of focal fatty sparing segment 4A and left hepatic lobe.. No focal hepatic lesion or biliary ductal dilatation is present. The gallbladder has been surgically removed. No biliary ductal dilatation seen. The portal vein slightly prominent but no collateral vessels seen. PANCREAS: Unremarkable. SPLEEN: Unremarkable. ADRENAL GLANDS: Unremarkable. KIDNEYS AND URETERS: The kidneys are normal in size, shape, and attenuation. No hydronephrosis, hydroureter, or calculi seen. No perinephric stranding. BLADDER: Unremarkable. GASTROINTESTINAL TRACT: There is mild nonspecific mural thickening involving the entire colon without distention. The small bowel loops are normal caliber. There is lipomatous ileocecal valve projecting within the cecum, slightly more prominent previous study. The stomach is nondistended with postsurgical sutures seen along the greater curvature. No free air or free fluid seen. There is minimal free fluid seen in the right pericolic gutter. Mild haziness seen throughout the mesentery question venous congestion. ABDOMINAL WALL: No significant hernia is appreciated. LYMPH NODES: Prominent retroperitoneal small lymph nodes and collateral vessels are seen in the upper and midabdomen. VASCULAR: Unremarkable. PELVIC VISCERA: No pelvic mass or free fluid seen. There is no abnormal pelvic lymph nodes. OSSEOUS STRUCTURES: No osseous abnormality seen. IMPRESSION: Hepatomegaly with heterogeneous appearing liver likely cirrhosis and fatty infiltration and some areas of focal fatty sparing seen. Patent portal vein with few collateral vessels in the retroperitoneum and splenic hilum. Few prominent lymph nodes are seen in the retroperitoneum as well. Mild venous congestion in the peritoneum with haziness. Minimal right pericolic fluid collection and mild mural thickening involving the ascending and right transverse colon, nonspecific question colitis. Similar findings were seen on the previous study. No new findings. No acute abnormality seen
[2020-08-24 14:11] LABS: Glucose Urine UA 100 MG/DL (NEG); Leukocyte Esterase Urine TRACE (NEG); PH 6.5 (5.0-8.0); Urine Blood TRACE (NEG); Urine Ketones 15 MG/DL (NEG); Urine Protein 2+ MG/DL (NEG-TRACE)
[2020-08-24 14:15] LABS: Appearance Urine CLOUDY; Color Urine ORANGE; Nitrite Urine POS (NEG)
[2020-08-24 14:26] LABS: Lactic Acid 2.9 mmol/L (0.5-2.0)
[2020-08-24 14:30] LABS: B Type Natriuretic Peptide 57 pg/mL (<100)
[2020-08-24 14:32] LABS: RBC Urine 0-2 /HPF (0); Squamous Epithelial Cell Urine 2+ /LPF; WBC Urine 0 /HPF (0-4)
[2020-08-24 14:33] LABS: Mucus Urine 3+ /LPF
[2020-08-24 14:36] LABS: UPreg QC Valid YES; Urine Pregnancy NEGATIVE (NEGATIVE)
[2020-08-24] MEDS: Piperacillin Sodium/Tazobactam 3.375 GM in 0.9 % Sodium Chloride 50 ML IV (14:43)
[2020-08-24] MEDS: ondansetron HCL 4 MG/2 ML VIAL IVPUSH (14:44)
[2020-08-24] MEDS: LORazepam 2 MG/ML VIAL 1 MG IVPUSH ×2 (14:44→16:37)
[2020-08-24 14:49] LABS: Amphetamine Screen Urine Not Detected (Not Detect); Barbiturates, Urine POSITIVE (Not Detect); Benzodiazepines Screen Urine Not Detected (Not Detect); Cannabinoid Screen Urine POSITIVE (Not Detect); Cocaine Screen Urine Not Detected (Not Detect); Opiate Screen Urine Not Detected (Not Detect); Phencyclidine Screen Urine Not Detected (Not Detect)
[2020-08-24 15:01] LABS: Ethanol 29 mg/dL
[2020-08-24 15:02] LABS: Alanine Aminotransferase 24 U/L (0-31); Alkaline Phosphatase 310 U/L (39-117); Anion Gap 14 (12-20); Aspartate Amino Transferase 112 U/L (5-31); Bilirubin Total 3.8 mg/dL (0.0-1.0); Blood Urea Nitrogen 8 mg/dL (9-16); Calcium 8.1 mg/dL (8.4-10.2); Carbon Dioxide 22 mmol/L (22-29); Chloride 104 mmol/L (96-108); Creatinine Clr Calc Pharmacy 135.1; Estimated Glomerular Filt Rate > 60; Glucose Random 90 mg/dL (60-115); Lipase 7 U/L (8-78); Sodium 137 mmol/L (135-145); Total Protein 6.2 g/dL (6.5-8.0)
[2020-08-24] MEDS: iohexoL 350 MG/ML 100 ML INFUS..BTL IV (15:24)
[2020-08-24 15:28] VITALS: BP 93/47; PULSE 67; RESP 17; TEMP 37.2; O2SAT 97
[2020-08-24 15:52] LABS: Reflex Lactate? Lactic Acid Added
[2020-08-24] MEDS: fentaNYL citrate/PF 100 MCG/2 ML VIAL 25 MCG IVPUSH (16:37)
[2020-08-24 16:38] LABS: OBS Int Ctl Valid YES; OBS1 POS (NEG)
--- NOTE | 2020-08-24 16:41 | PC.NURSE ---
PT CONTINUES TO DRY HEAVE. MOI RED BLOOD EXITING REAR END. PT UNDERSTAND PLAN TO ADMIT. MEDICATED PER EMR FOR ONGOING NAUSEA/PAIN.
[2020-08-24] MEDS: metroNIDAZOLE/NS 500 MG/100 ML PIGGYBACK 100 MG IV (17:18)
[2020-08-24 17:37] LABS: SARS COV2 PCR INHOUSE NEGATIVE (Negative)
[2020-08-24] MEDS: PHENobarbitaL sodium 130 MG/ML VIAL 190 MG IM (18:23)
--- NOTE | 2020-08-24 18:48 | PC.NURSE ---
PT REPORTED RELIEF WITH ANALGESICS GIVEN. THEN STATED I WANNA GO HOME PT WAS EXPLAINED CONSEQUENCES OF LEAVING AMA, AND ENCOURAGED TO STAY. WHEN ASKED WHY SHE WANTED TO LEAVE PT STATED WHEN I GO UPSTAIRS THEY DON'T DEAL WITH MY NAUSEA, THEY DON'T DEAL WITH MY PAIN. DOWN HERE IS FINE, BUT I DON'T WANNA GO UPSTAIRS. MY MOMS COMING TO PICK ME UP . IV REMOVED.
== END 2020-08-24 19:00 | disposition left against medical advice (07) | DRG 433 ==
LOC: HO.ED 16:50 → HO.IMC 17:47
PROVIDERS: Physician Assistant; Admitting Provider Internal Medicine; Emergency Provider Emergency Medicine; PCP Family Medicine; Visit Provider Internal Medicine
DX: K70.10 Alcoholic hepatitis without ascites (principal); F10.239 Alcohol dependence with withdrawal, unspecified; G40.909 Epilepsy, unspecified, not intractable, without status epilepticus; F17.210 Nicotine dependence, cigarettes, uncomplicated; Z71.6 Tobacco abuse counseling; Z20.828 Contact with and (suspected) exposure to other viral communicable diseases; Z98.84 Bariatric surgery status; Z88.5 Allergy status to narcotic agent; Z79.899 Other long term (current) drug therapy
CPT/HCPCS: 36415; 74177; 80048; 80076; 80307; 80320; 81001; 81025; 82272; 83605; 83690; 83880; 85025; 85610; 85730; 86850; 86900; 86901; 87040; 87086; 87635; 96361; 96365; 96367; 96372; 96375; 96376; 99284; 99285; J2060; J2405; J2560; J3010

== ENCOUNTER 2020-09-09 14:31 | Inpatient (IN) | payer MEDICARE, MEDICAID, SELFPAY ==
--- NOTE | 2020-09-09 | ECG_ITS ---
Test Reason : QTC Blood Pressure : / mmHG Vent. Rate : 106 BPM Atrial Rate : 106 BPM P-R Int : 142 ms QRS Dur : 086 ms QT Int : 392 ms P-R-T Axes : 024 039 020 degrees QTc Int : 520 ms Sinus tachycardia Nonspecific ST abnormality Abnormal ECG When compared with ECG of 03-AUG-2020 19:11, Heart rate has increased ST more depressed Inferior leads Lateral leads Referred By: Jose Granados Electronically Signed By:MOI GARCIA MD
[2020-09-09 14:53] VITALS: BP 103/64; BP 106/67; PULSE 81; PULSE 84; RESP 18; TEMP 36.6; O2SAT 100; O2SAT 98; BMI 27.1
--- NOTE | 2020-09-09 15:02 | ED.ABDPAIN ---
HPI - Abdominal Pain General Chief Complaint: Abdominal Pain <FRANCIA Bailon - Last Filed: 09/09/20 16:39> Stated Complaint: AB PAIN,VOMITING BLOOD X'S 1 MO,VILLARREAL DIZZY <FRANCIA Bailon - Last Filed: 09/09/20 16:39> Time Seen by Provider: 09/09/20 15:00 <FRANCIA Bailon - Last Filed: 09/09/20 16:39> Source: patient <FRANCIA Bailon - Last Filed: 09/09/20 16:39> Mode of arrival: ambulatory <FRANCIA Bailon - Last Filed: 09/09/20 16:39> Limitations: no limitations <FRANCIA Bailon Last Filed: 09/09/20 16:39> History of Present Illness HPI narrative: 30 y/o female with history of chronic alcohol abuse, liver cirrhosis with ascites, hx upper and lower GI bleed, colitis, depression/anxiety who is presenting with coffee-ground emesis, diffuse abdominal pain, fever of 103.2 at home. She has chronic diarrhea and recently has progressed to fecal incontinence. She denies LGIB at this time. Reports vomiting bright red blood a few weeks ago. Was seen here on 08/24 - had CT scan showing possible colitis and plan was for admission however patient left. She was concerned her pain and alcohol withdrawal symptoms were not going to be addressed if she was hospitalized. She went home and the vomiting changed to dark emesis and the abdominal pain persisted, mostly lower abdomen. She also states she has had decreased urination and urine is now dark orange. She has increased abdominal distention as well. She has been taking tylenol for pain. She has continued to drink alcohol, decreased from 12 to 9 nips per day; last drink at 3am today. She saw her doctor today in the office who encouraged her to come to the ER for evaluation and probable admission to the hospital. <FRANCIA Bailon - Last Filed: 09/09/20 16:39> MD elicited complaint: abdominal pain <FRANCIA Bailon Last Filed: 09/09/20 16:39> Pertinent past history: gastrointestinal bleeding and other (cirrhosis, alcohol abuse, colitis ) <FRANCIA Bailon - Last Filed: 09/09/20 16:39> Onset (ago): week(s) (3) <FRANCIA Bailon - Last Filed: 09/09/20 16:39> Pain Consistency: constant <FRANCIA Bailon Last Filed: 09/09/20 16:39> Location: diffuse <FRANCIA Bailon Last Filed: 09/09/20 16:39> Severity: severe <FRANCIA Bailon Last Filed: 09/09/20 16:39> Quality: stabbing and aching <FRANCIA Bailon - Last Filed: 09/09/20 16:39> Radiation: back <FRANCIA Bailon - Last Filed: 09/09/20 16:39> Exacerbating factors: vomiting and movement <FRANCIA Bailon Last Filed: 09/09/20 16:39> Relieving factors: nothing <FRANCIA Bailon Last Filed: 09/09/20 16:39> Context: history of similar episodes <FRANCIA Bailon Last Filed: 09/09/20 16:39> Associated symptoms: nausea, vomiting, diarrhea, fever, chills, hematemesis and hematuria <FRANCIA Bailon Last Filed: 09/09/20 16:39> Treatments prior to arrival: other (Tylenol ) <FRANCIA Bailon Last Filed: 09/09/20 16:39> Related Data Patient : No <FRANCIA Bailon Last Filed: 09/09/20 16:39> Home Medications: Home Medications Medication Instructions Recorded Confirmed midodrine 1 tab PO TID 09/09/20 09/09/20 mirtazapine 1 tab SUBLINGUAL BEDTIME 09/09/20 09/09/20 Previous Rx's Medication Instructions Recorded pantoprazole 40 mg tablet,delayed 40 mg PO DAILY #1 tab 08/17/20 release trazodone 50 mg tablet 50 mg PO BEDTIME PRN 30 Days #30 08/17/20 tab <FRANCIA Bailon Last Filed: 09/09/20 16:39> Allergies/Adverse Reactions: Allergies Allergy/AdvReac Type Severity Reaction Status Date / Time morphine [MORPHINE] Allergy Mild HIVES Unverified 07/22/20 17:44 banana [BANANA] AdvReac Severe DIFFICULTY Unverified 07/22/20 17:44 BREATHING morphine and related Allergy Unknown Uncoded 07/06/20 00:00 <FRANCIA Bailon - Last Filed: 09/09/20 16:39> Review of Systems Review of Systems Constitutional: + Fever, No Chills ENT/Mouth: No sore throat, No Rhinorrhea, No Swallowing Difficulty Eyes: No Eye Pain, No Swelling, No Redness Cardiovascular: No Chest Pain, No SOB, No Orthopnea, No Edema Respiratory: No Cough, No Sputum, No Wheezing, No dyspnea Gastrointestinal: + Nausea, + Vomiting, + Diarrhea, + abdominal Pain, No Hematochezia, No Melena, +hematemesis Genitourinary: No Dysuria, No Urinary Frequency, + Hematuria, +decreased urination Musculoskeletal: No joint pain, + Myalgias Skin: + Skin Lesions, No rash Neuro: + Weakness, No Numbness, No Dizziness, + Headache Psych: + Anxiety/Panic, + Depression Heme/Lymph: + Bruising, No Lymphadenopathy Endocrine: No Polyuria, No Polydipsia <FRANCIA Bailon Last Filed: 09/09/20 16:39> Physical Exam Vital Signs: Vital Signs: Last Vital Signs Temp 98.9 F 09/09/20 19:49 Pulse 98 09/09/20 19:49 Resp 18 09/09/20 17:26 BP 90/49 L 09/09/20 19:49 Pulse Ox 100 09/09/20 19:49 Body Mass Index 27.1 Appearance: Alert. Oriented X3. Mild scleral jaundice. patient appears chronically ill. Eyes: Pupils equal, round and reactive to light. ENT: Pharynx normal. Dry mucus membranes Neck: Normal inspection. Neck supple. CVS: Normal heart rate and rhythm. Pulses normal. Respiratory: No respiratory distress. Breath sounds normal. Abdomen: Softly distended with diffuse tenderness more so in lower abdomen, hepatomegaly. +BS x4 Skin: Skin warm and dry. Poor skin turgor. Areas of ecchymosis on RUE. Extremities: No lower extremity edema. Neuro: Oriented X 3. Generalized weakness. No sensory deficit. <FRANCIA Bailon Last Filed: 09/09/20 16:39> Vital Signs: Last Vital Signs Temp 98.9 F 09/09/20 19:49 Pulse 98 09/09/20 19:49 Resp 18 09/09/20 17:26 BP 90/49 L 09/09/20 19:49 Pulse Ox 100 09/09/20 19:49 Body Mass Index 27.1 <Brianda Trujillo NP - Last Filed: 09/09/20 23:53> Course Course Course Narrative: 30 y/o female with multiple comorbidities including ETOH abuse and ETOH cirrhosis with ascites and hx GI bleed, colitis presenting with fever at home, abdominal pain, and coffee ground emesis. Concern for UGIB, possible variceal given history of cirrhosis, however she denies bright red blood. More likely alcoholic gastritis or PUD. IV protonix ordered now, will hold off on octreotide and monitor for bleeding now. Full lab workup ordered including CBC, coags, type and screen, BMP, cultures and lactic acid. Concern for possible SBP or worsening colitis given she left AMA on 08/24 without antibiotics. STAT abd u/s ordered now to assess for ascites, if present will get dx and therapeutic paracentsis. Patient will require admission to the hospital. She agrees to admission and full work up. Zofran, Ativan, Fentanyl, Protonix and IVF ordered now. <FRANCIA Bailon - Last Filed: 09/09/20 16:39> Patient reports 9/10 pain, feels like she is withdrawing from alcohol at this time, and has nausea. We will give fentanyl, start phenobarbital protocol, and Phenergan. Labs are still pending. Once labs return we will decide CT with or without contrast based on her kidney function. at 6:03 p.m. lactic acid elevated at 2.7. This acidosis is secondary to alcoholism not sepsis. CT scan shows worsening colitis which now includes duodenum and jejunum. Discussion with hospitalist regarding plan of care, patient will be admitted for EtOH withdrawal and colitis. Lactic acid values are improving. <Brianda Trujillo NP - Last Filed: 09/09/20 23:53> Reevaluation(s) Reevaluation #1: No ascites on U/S. Paracentesis cancelled. Empiric Rocpehin and Flagyl ordered. Lab work still pending. Difficult stick, multiple nurses attempting placement at this time. <FRANCIA Bailon - Last Filed: 09/09/20 16:39> Time: 16:39 <FRANCIA Bailon - Last Filed: 09/09/20 16:39> Consultations Consultation #1: Ric Granados <Brianda Trujillo NP - Last Filed: 09/09/20 23:53> Time: 19:50 <Brianda Trujillo NP - Last Filed: 09/09/20 23:53> MDM - Abdominal Pain Differential Diagnosis Differential diagnosis: Likely abdominal pain, acute appendicitis, constipation, diverticulitis, gastroenteritis, gastritis, pancreatitis, peptic ulcer disease, renal colic and small bowel obstruction <FRANCIA Bailon - Last Filed: 09/09/20 16:39> Lab Data Result diagrams: : 09/09/20 16:47 09/09/20 16:47 <FRANCIA Bailon - Last Filed: 09/09/20 16:39> Labs: Lab Results 09/09/20 09/09/20 09/09/20 Range/Units 16:47 16:47 16:48 WBC 12.9 H (4.8-10.8) X10*3/uL RBC 2.82 L (4.20-5.50) X10*6/uL Hgb 9.3 L (12.0-16.0) g/dl Hct 28.2 L (37-47) % MCV 100.0 H (80-98) fL MCH 33.0 (27.0-33.0) pg MCHC 33.0 (31.0-35.0) g/dl RDW 25.0 H (11.0-16.0) % Plt Count 183 D (160-400) X10*3/uL MPV 8.8 L (9.4-12.3) fL Immature Gran % (Auto) 0.6 H (0.0-0.4) % Neut % (Auto) 74.4 H (45-73) % Lymph % (Auto) 18.0 L (20-40) % [place] % (Auto) 5.9 (2-11) % Eos % (Auto) 0.5 (0-4) % Baso % (Auto) 0.6 (0-2) % Lymph # (Auto) 2.3 (1.2-4.9) X10*3/uL [place] # (Auto) 0.8 (0.1-1.2) X10*3/uL Eos # (Auto) 0.1 (0.0-0.4) X10*3/uL Baso # (Auto) 0.1 (0.0-0.2) X10*3/uL Abs Immat Gran (auto) 0.08 H (0.00-0.03) X10*3/uL Absolute Neuts (auto) 9.6 H (2.0-8.3) X10*3/uL Absolute Nucleated RBC 0.000 (0.0-0.012) X10*3/uL Nucleated RBC % (auto) 0.0 (0.0-0.2) /100WBC PT 16.7 H (10.8-13.0) SEC INR 1.4 H (0.9-1.1) APTT 32.9 (24.1-38.0) SEC Sodium 141 (135-145) mmol/L Potassium 3.7 D (3.3-5.1) mmol/l Chloride 108 (96-108) mmol/L Carbon Dioxide 20 L (22-29) mmol/L Anion Gap 17 (12-20) BUN 4 L (9-16) mg/dL Creatinine 0.49 L (0.5-1.4) mg/dL Estim Creat Clear Calc 139.1 Estimated GFR > 60 Random Glucose 80 (60-115) mg/dL Lactic Acid (0.5-2.0) mmol/L Lactic Acid Fup @ 2Hr (0.5-2.0) mmol/L Calcium 7.2 L D (8.4-10.2) mg/dL Magnesium 1.7 (1.6-2.6) mg/dL Total Bilirubin 3.8 H (0.0-1.0) mg/dL Direct Bilirubin 2.7 H (0.0-0.5) mg/dL AST 177 H (5-31) U/L ALT 24 (0-31) U/L Alkaline Phosphatase 301 H (39-117) U/L B-Natriuretic Peptide (<100) pg/mL Total Protein 6.5 (6.5-8.0) g/dL Albumin 2.6 L (3.5-5.0) g/dL Lipase 26 (8-78) U/L Urine Color Urine Appearance Urine pH (5.0-8.0) Ur Specific [place] (1.005-1.025) Urine Protein (NEG-TRACE) MG/DL Urine Glucose (UA) (NEG) MG/DL Urine Ketones (NEG) MG/DL Urine Blood (NEG) Urine Nitrite (NEG) Ur Leukocyte Esterase (NEG) Urine RBC (0) /HPF Urine WBC (0-4) /HPF Ur Squamous Epith Cells /LPF Daniele Biurate Crystals /LPF Urine Bacteria /LPF Urine Test (NEGATIVE) Urine Opiates Screen (Not Detect) Acetaminophen (<30) mcg/mL Ur Barbiturates Screen (Not Detect) Ur Phencyclidine Scrn (Not Detect) Ur Amphetamines Screen (Not Detect) U Benzodiazepines Scrn (Not Detect) Urine Cocaine Screen (Not Detect) U Marijuana (THC) Screen (Not Detect) Ethyl Alcohol mg/dL Blood Type Antibody Screen 09/09/20 09/09/20 09/09/20 Range/Units 16:48 16:48 16:48 WBC (4.8-10.8) X10*3/uL RBC (4.20-5.50) X10*6/uL Hgb (12.0-16.0) g/dl Hct (37-47) % MCV (80-98) fL MCH (27.0-33.0) pg MCHC (31.0-35.0) g/dl RDW (11.0-16.0) % Plt Count (160-400) X10*3/uL MPV (9.4-12.3) fL Immature Gran % (Auto) (0.0-0.4) % Neut % (Auto) (45-73) % Lymph % (Auto) (20-40) % [place] % (Auto) (2-11) % Eos % (Auto) (0-4) % Baso % (Auto) (0-2) % Lymph # (Auto) (1.2-4.9) X10*3/uL [place] # (Auto) (0.1-1.2) X10*3/uL Eos # (Auto) (0.0-0.4) X10*3/uL Baso # (Auto) (0.0-0.2) X10*3/uL Abs Immat Gran (auto) (0.00-0.03) X10*3/uL Absolute Neuts (auto) (2.0-8.3) X10*3/uL Absolute Nucleated RBC (0.0-0.012) X10*3/uL Nucleated RBC % (auto) (0.0-0.2) /100WBC PT (10.8-13.0) SEC INR (0.9-1.1) APTT (24.1-38.0) SEC Sodium (135-145) mmol/L Potassium (3.3-5.1) mmol/l Chloride (96-108) mmol/L Carbon Dioxide (22-29) mmol/L Anion Gap (12-20) BUN (9-16) mg/dL Creatinine (0.5-1.4) mg/dL Estim Creat Clear Calc Estimated GFR Random Glucose (60-115) mg/dL Lactic Acid 2.7 H* (0.5-2.0) mmol/L Lactic Acid Fup @ 2Hr (0.5-2.0) mmol/L Calcium (8.4-10.2) mg/dL Magnesium Cancelled (1.6-2.6) mg/dL Total Bilirubin (0.0-1.0) mg/dL Direct Bilirubin (0.0-0.5) mg/dL AST (5-31) U/L ALT (0-31) U/L Alkaline Phosphatase (39-117) U/L B-Natriuretic Peptide 91 (<100) pg/mL Total Protein (6.5-8.0) g/dL Albumin (3.5-5.0) g/dL Lipase Cancelled (8-78) U/L Urine Color Urine Appearance Urine pH (5.0-8.0) Ur Specific [place] (1.005-1.025) Urine Protein (NEG-TRACE) MG/DL Urine Glucose (UA) (NEG) MG/DL Urine Ketones (NEG) MG/DL Urine Blood (NEG) Urine Nitrite (NEG) Ur Leukocyte Esterase (NEG) Urine RBC (0) /HPF Urine WBC (0-4) /HPF Ur Squamous Epith Cells /LPF Novi Biurate Crystals /LPF Urine Bacteria /LPF Urine Test (NEGATIVE) Urine Opiates Screen (Not Detect) Acetaminophen (<30) mcg/mL Ur Barbiturates Screen (Not Detect) Ur Phencyclidine Scrn (Not Detect) Ur Amphetamines Screen (Not Detect) U Benzodiazepines Scrn (Not Detect) Urine Cocaine Screen (Not Detect) U Marijuana (THC) Screen (Not Detect) Ethyl Alcohol mg/dL Blood Type Antibody Screen 09/09/20 09/09/20 09/09/20 Range/Units 16:48 16:49 16:49 WBC (4.8-10.8) X10*3/uL RBC (4.20-5.50) X10*6/uL Hgb (12.0-16.0) g/dl Hct (37-47) % MCV (80-98) fL MCH (27.0-33.0) pg MCHC (31.0-35.0) g/dl RDW (11.0-16.0) % Plt Count (160-400) X10*3/uL MPV (9.4-12.3) fL Immature Gran % (Auto) (0.0-0.4) % Neut % (Auto) (45-73) % Lymph % (Auto) (20-40) % [place] % (Auto) (2-11) % Eos % (Auto) (0-4) % Baso % (Auto) (0-2) % Lymph # (Auto) (1.2-4.9) X10*3/uL [place] # (Auto) (0.1-1.2) X10*3/uL Eos # (Auto) (0.0-0.4) X10*3/uL Baso # (Auto) (0.0-0.2) X10*3/uL Abs Immat Gran (auto) (0.00-0.03) X10*3/uL Absolute Neuts (auto) (2.0-8.3) X10*3/uL Absolute Nucleated RBC (0.0-0.012) X10*3/uL Nucleated RBC % (auto) (0.0-0.2) /100WBC PT (10.8-13.0) SEC INR (0.9-1.1) APTT (24.1-38.0) SEC Sodium (135-145) mmol/L Potassium (3.3-5.1) mmol/l Chloride (96-108) mmol/L Carbon Dioxide (22-29) mmol/L Anion Gap (12-20) BUN (9-16) mg/dL Creatinine (0.5-1.4) mg/dL Estim Creat Clear Calc Estimated GFR Random Glucose (60-115) mg/dL Lactic Acid (0.5-2.0) mmol/L Lactic Acid Fup @ 2Hr (0.5-2.0) mmol/L Calcium (8.4-10.2) mg/dL Magnesium (1.6-2.6) mg/dL Total Bilirubin (0.0-1.0) mg/dL Direct Bilirubin (0.0-0.5) mg/dL AST (5-31) U/L ALT (0-31) U/L Alkaline Phosphatase (39-117) U/L B-Natriuretic Peptide (<100) pg/mL Total Protein (6.5-8.0) g/dL Albumin (3.5-5.0) g/dL Lipase Cancelled (8-78) U/L Urine Color Urine Appearance Urine pH (5.0-8.0) Ur Specific [place] (1.005-1.025) Urine Protein (NEG-TRACE) MG/DL Urine Glucose (UA) (NEG) MG/DL Urine Ketones (NEG) MG/DL Urine Blood (NEG) Urine Nitrite (NEG) Ur Leukocyte Esterase (NEG) Urine RBC (0) /HPF Urine WBC (0-4) /HPF Ur Squamous Epith Cells /LPF Daniele Biurate Crystals /LPF Urine Bacteria /LPF Urine Test (NEGATIVE) Urine Opiates Screen (Not Detect) Acetaminophen < 1 (<30) mcg/mL Ur Barbiturates Screen (Not Detect) Ur Phencyclidine Scrn (Not Detect) Ur Amphetamines Screen (Not Detect) U Benzodiazepines Scrn (Not Detect) Urine Cocaine Screen (Not Detect) U Marijuana (THC) Screen (Not Detect) Ethyl Alcohol 282 mg/dL Blood Type Antibody Screen 09/09/20 09/09/20 09/09/20 Range/Units 16:49 16:50 16:50 WBC (4.8-10.8) X10*3/uL RBC (4.20-5.50) X10*6/uL Hgb (12.0-16.0) g/dl Hct (37-47) % MCV (80-98) fL MCH (27.0-33.0) pg MCHC (31.0-35.0) g/dl RDW (11.0-16.0) % Plt Count (160-400) X10*3/uL MPV (9.4-12.3) fL Immature Gran % (Auto) (0.0-0.4) % Neut % (Auto) (45-73) % Lymph % (Auto) (20-40) % [place] % (Auto) (2-11) % Eos % (Auto) (0-4) % Baso % (Auto) (0-2) % Lymph # (Auto) (1.2-4.9) X10*3/uL [place] # (Auto) (0.1-1.2) X10*3/uL Eos # (Auto) (0.0-0.4) X10*3/uL Baso # (Auto) (0.0-0.2) X10*3/uL Abs Immat Gran (auto) (0.00-0.03) X10*3/uL Absolute Neuts (auto) (2.0-8.3) X10*3/uL Absolute Nucleated RBC (0.0-0.012) X10*3/uL Nucleated RBC % (auto) (0.0-0.2) /100WBC PT (10.8-13.0) SEC INR (0.9-1.1) APTT (24.1-38.0) SEC Sodium (135-145) mmol/L Potassium (3.3-5.1) mmol/l Chloride (96-108) mmol/L Carbon Dioxide (22-29) mmol/L Anion Gap (12-20) BUN (9-16) mg/dL Creatinine (0.5-1.4) mg/dL Estim Creat Clear Calc Estimated GFR Random Glucose (60-115) mg/dL Lactic Acid (0.5-2.0) mmol/L Lactic Acid Fup @ 2Hr (0.5-2.0) mmol/L Calcium (8.4-10.2) mg/dL Magnesium (1.6-2.6) mg/dL Total Bilirubin (0.0-1.0) mg/dL Direct Bilirubin (0.0-0.5) mg/dL AST (5-31) U/L ALT (0-31) U/L Alkaline Phosphatase (39-117) U/L B-Natriuretic Peptide (<100) pg/mL Total Protein (6.5-8.0) g/dL Albumin (3.5-5.0) g/dL Lipase (8-78) U/L Urine Color ORANGE Urine Appearance TURBID Urine pH 6.5 (5.0-8.0) Ur Specific [place] 1.025 (1.005-1.025) Urine Protein 1+ H (NEG-TRACE) MG/DL Urine Glucose (UA) NEG (NEG) MG/DL Urine Ketones 5 (NEG) MG/DL Urine Blood NEG (NEG) Urine Nitrite POS H (NEG) Ur Leukocyte Esterase NEG (NEG) Urine RBC 0 (0) /HPF Urine WBC 0 (0-4) /HPF Ur Squamous Epith Cells TRACE /LPF Daniele Biurate Crystals 2+ /LPF Urine Bacteria 1+ /LPF Urine Test NEGATIVE (NEGATIVE) Urine Opiates Screen Not Detected (Not Detect) Acetaminophen (<30) mcg/mL Ur Barbiturates Screen POSITIVE H (Not Detect) Ur Phencyclidine Scrn Not Detected (Not Detect) Ur Amphetamines Screen Not Detected (Not Detect) U Benzodiazepines Scrn Not Detected (Not Detect) Urine Cocaine Screen Not Detected (Not Detect) U Marijuana (THC) Screen POSITIVE H (Not Detect) Ethyl Alcohol mg/dL Blood Type O Negative Antibody Screen NEGATIVE 09/09/20 Range/Units 19:05 WBC (4.8-10.8) X10*3/uL RBC (4.20-5.50) X10*6/uL Hgb (12.0-16.0) g/dl Hct (37-47) % MCV (80-98) fL MCH (27.0-33.0) pg MCHC (31.0-35.0) g/dl RDW (11.0-16.0) % Plt Count (160-400) X10*3/uL MPV (9.4-12.3) fL Immature Gran % (Auto) (0.0-0.4) % Neut % (Auto) (45-73) % Lymph % (Auto) (20-40) % [place] % (Auto) (2-11) % Eos % (Auto) (0-4) % Baso % (Auto) (0-2) % Lymph # (Auto) (1.2-4.9) X10*3/uL [place] # (Auto) (0.1-1.2) X10*3/uL Eos # (Auto) (0.0-0.4) X10*3/uL Baso # (Auto) (0.0-0.2) X10*3/uL Abs Immat Gran (auto) (0.00-0.03) X10*3/uL Absolute Neuts (auto) (2.0-8.3) X10*3/uL Absolute Nucleated RBC (0.0-0.012) X10*3/uL Nucleated RBC % (auto) (0.0-0.2) /100WBC PT (10.8-13.0) SEC INR (0.9-1.1) APTT (24.1-38.0) SEC Sodium (135-145) mmol/L Potassium (3.3-5.1) mmol/l Chloride (96-108) mmol/L Carbon Dioxide (22-29) mmol/L Anion Gap (12-20) BUN (9-16) mg/dL Creatinine (0.5-1.4) mg/dL Estim Creat Clear Calc Estimated GFR Random Glucose (60-115) mg/dL Lactic Acid (0.5-2.0) mmol/L Lactic Acid Fup @ 2Hr 2.3 H* (0.5-2.0) mmol/L Calcium (8.4-10.2) mg/dL Magnesium (1.6-2.6) mg/dL Total Bilirubin (0.0-1.0) mg/dL Direct Bilirubin (0.0-0.5) mg/dL AST (5-31) U/L ALT (0-31) U/L Alkaline Phosphatase (39-117) U/L B-Natriuretic Peptide (<100) pg/mL Total Protein (6.5-8.0) g/dL Albumin (3.5-5.0) g/dL Lipase (8-78) U/L Urine Color Urine Appearance Urine pH (5.0-8.0) Ur Specific [place] (1.005-1.025) Urine Protein (NEG-TRACE) MG/DL Urine Glucose (UA) (NEG) MG/DL Urine Ketones (NEG) MG/DL Urine Blood (NEG) Urine Nitrite (NEG) Ur Leukocyte Esterase (NEG) Urine RBC (0) /HPF Urine WBC (0-4) /HPF Ur Squamous Epith Cells /LPF Daniele Biurate Crystals /LPF Urine Bacteria /LPF Urine Test (NEGATIVE) Urine Opiates Screen (Not Detect) Acetaminophen (<30) mcg/mL Ur Barbiturates Screen (Not Detect) Ur Phencyclidine Scrn (Not Detect) Ur Amphetamines Screen (Not Detect) U Benzodiazepines Scrn (Not Detect) Urine Cocaine Screen (Not Detect) U Marijuana (THC) Screen (Not Detect) Ethyl Alcohol mg/dL Blood Type Antibody Screen <FRANCIA Bailon - Last Filed: 09/09/20 16:39> Lab Results 09/09/20 09/09/20 09/09/20 Range/Units 16:47 16:47 16:48 WBC 12.9 H (4.8-10.8) X10*3/uL RBC 2.82 L (4.20-5.50) X10*6/uL Hgb 9.3 L (12.0-16.0) g/dl Hct 28.2 L (37-47) % MCV 100.0 H (80-98) fL MCH 33.0 (27.0-33.0) pg MCHC 33.0 (31.0-35.0) g/dl RDW 25.0 H (11.0-16.0) % Plt Count 183 D (160-400) X10*3/uL MPV 8.8 L (9.4-12.3) fL Immature Gran % (Auto) 0.6 H (0.0-0.4) % Neut % (Auto) 74.4 H (45-73) % Lymph % (Auto) 18.0 L (20-40) % [place] % (Auto) 5.9 (2-11) % Eos % (Auto) 0.5 (0-4) % Baso % (Auto) 0.6 (0-2) % Lymph # (Auto) 2.3 (1.2-4.9) X10*3/uL [place] # (Auto) 0.8 (0.1-1.2) X10*3/uL Eos # (Auto) 0.1 (0.0-0.4) X10*3/uL Baso # (Auto) 0.1 (0.0-0.2) X10*3/uL Abs Immat Gran (auto) 0.08 H (0.00-0.03) X10*3/uL Absolute Neuts (auto) 9.6 H (2.0-8.3) X10*3/uL Absolute Nucleated RBC 0.000 (0.0-0.012) X10*3/uL Nucleated RBC % (auto) 0.0 (0.0-0.2) /100WBC PT 16.7 H (10.8-13.0) SEC INR 1.4 H (0.9-1.1) APTT 32.9 (24.1-38.0) SEC Sodium 141 (135-145) mmol/L Potassium 3.7 D (3.3-5.1) mmol/l Chloride 108 (96-108) mmol/L Carbon Dioxide 20 L (22-29) mmol/L Anion Gap 17 (12-20) BUN 4 L (9-16) mg/dL Creatinine 0.49 L (0.5-1.4) mg/dL Estim Creat Clear Calc 139.1 Estimated GFR > 60 Random Glucose 80 (60-115) mg/dL Lactic Acid (0.5-2.0) mmol/L Lactic Acid Fup @ 2Hr (0.5-2.0) mmol/L Calcium 7.2 L D (8.4-10.2) mg/dL Magnesium 1.7 (1.6-2.6) mg/dL Total Bilirubin 3.8 H (0.0-1.0) mg/dL Direct Bilirubin 2.7 H (0.0-0.5) mg/dL AST 177 H (5-31) U/L ALT 24 (0-31) U/L Alkaline Phosphatase 301 H (39-117) U/L B-Natriuretic Peptide (<100) pg/mL Total Protein 6.5 (6.5-8.0) g/dL Albumin 2.6 L (3.5-5.0) g/dL Lipase 26 (8-78) U/L Urine Color Urine Appearance Urine pH (5.0-8.0) Ur Specific [place] (1.005-1.025) Urine Protein (NEG-TRACE) MG/DL Urine Glucose (UA) (NEG) MG/DL Urine Ketones (NEG) MG/DL Urine Blood (NEG) Urine Nitrite (NEG) Ur Leukocyte Esterase (NEG) Urine RBC (0) /HPF Urine WBC (0-4) /HPF Ur Squamous Epith Cells /LPF Daniele Biurate Crystals /LPF Urine Bacteria /LPF Urine Test (NEGATIVE) Urine Opiates Screen (Not Detect) Acetaminophen (<30) mcg/mL Ur Barbiturates Screen (Not Detect) Ur Phencyclidine Scrn (Not Detect) Ur Amphetamines Screen (Not Detect) U Benzodiazepines Scrn (Not Detect) Urine Cocaine Screen (Not Detect) U Marijuana (THC) Screen (Not Detect) Ethyl Alcohol mg/dL Blood Type Antibody Screen 09/09/20 09/09/20 09/09/20 Range/Units 16:48 16:48 16:48 WBC (4.8-10.8) X10*3/uL RBC (4.20-5.50) X10*6/uL Hgb (12.0-16.0) g/dl Hct (37-47) % MCV (80-98) fL MCH (27.0-33.0) pg MCHC (31.0-35.0) g/dl RDW (11.0-16.0) % Plt Count (160-400) X10*3/uL MPV (9.4-12.3) fL Immature Gran % (Auto) (0.0-0.4) % Neut % (Auto) (45-73) % Lymph % (Auto) (20-40) % [place] % (Auto) (2-11) % Eos % (Auto) (0-4) % Baso % (Auto) (0-2) % Lymph # (Auto) (1.2-4.9) X10*3/uL [place] # (Auto) (0.1-1.2) X10*3/uL Eos # (Auto) (0.0-0.4) X10*3/uL Baso # (Auto) (0.0-0.2) X10*3/uL Abs Immat Gran (auto) (0.00-0.03) X10*3/uL Absolute Neuts (auto) (2.0-8.3) X10*3/uL Absolute Nucleated RBC (0.0-0.012) X10*3/uL Nucleated RBC % (auto) (0.0-0.2) /100WBC PT (10.8-13.0) SEC INR (0.9-1.1) APTT (24.1-38.0) SEC Sodium (135-145) mmol/L Potassium (3.3-5.1) mmol/l Chloride (96-108) mmol/L Carbon Dioxide (22-29) mmol/L Anion Gap (12-20) BUN (9-16) mg/dL Creatinine (0.5-1.4) mg/dL Estim Creat Clear Calc Estimated GFR Random Glucose (60-115) mg/dL Lactic Acid 2.7 H* (0.5-2.0) mmol/L Lactic Acid Fup @ 2Hr (0.5-2.0) mmol/L Calcium (8.4-10.2) mg/dL Magnesium Cancelled (1.6-2.6) mg/dL Total Bilirubin (0.0-1.0) mg/dL Direct Bilirubin (0.0-0.5) mg/dL AST (5-31) U/L ALT (0-31) U/L Alkaline Phosphatase (39-117) U/L B-Natriuretic Peptide 91 (<100) pg/mL Total Protein (6.5-8.0) g/dL Albumin (3.5-5.0) g/dL Lipase Cancelled (8-78) U/L Urine Color Urine Appearance Urine pH (5.0-8.0) Ur Specific [place] (1.005-1.025) Urine Protein (NEG-TRACE) MG/DL Urine Glucose (UA) (NEG) MG/DL Urine Ketones (NEG) MG/DL Urine Blood (NEG) Urine Nitrite (NEG) Ur Leukocyte Esterase (NEG) Urine RBC (0) /HPF Urine WBC (0-4) /HPF Ur Squamous Epith Cells /LPF Novi Biurate Crystals /LPF Urine Bacteria /LPF Urine Test (NEGATIVE) Urine Opiates Screen (Not Detect) Acetaminophen (<30) mcg/mL Ur Barbiturates Screen (Not Detect) Ur Phencyclidine Scrn (Not Detect) Ur Amphetamines Screen (Not Detect) U Benzodiazepines Scrn (Not Detect) Urine Cocaine Screen (Not Detect) U Marijuana (THC) Screen (Not Detect) Ethyl Alcohol mg/dL Blood Type Antibody Screen 09/09/20 09/09/20 09/09/20 Range/Units 16:48 16:49 16:49 WBC (4.8-10.8) X10*3/uL RBC (4.20-5.50) X10*6/uL Hgb (12.0-16.0) g/dl Hct (37-47) % MCV (80-98) fL MCH (27.0-33.0) pg MCHC (31.0-35.0) g/dl RDW (11.0-16.0) % Plt Count (160-400) X10*3/uL MPV (9.4-12.3) fL Immature Gran % (Auto) (0.0-0.4) % Neut % (Auto) (45-73) % Lymph % (Auto) (20-40) % [place] % (Auto) (2-11) % Eos % (Auto) (0-4) % Baso % (Auto) (0-2) % Lymph # (Auto) (1.2-4.9) X10*3/uL [place] # (Auto) (0.1-1.2) X10*3/uL Eos # (Auto) (0.0-0.4) X10*3/uL Baso # (Auto) (0.0-0.2) X10*3/uL Abs Immat Gran (auto) (0.00-0.03) X10*3/uL Absolute Neuts (auto) (2.0-8.3) X10*3/uL Absolute Nucleated RBC (0.0-0.012) X10*3/uL Nucleated RBC % (auto) (0.0-0.2) /100WBC PT (10.8-13.0) SEC INR (0.9-1.1) APTT (24.1-38.0) SEC Sodium (135-145) mmol/L Potassium (3.3-5.1) mmol/l Chloride (96-108) mmol/L Carbon Dioxide (22-29) mmol/L Anion Gap (12-20) BUN (9-16) mg/dL Creatinine (0.5-1.4) mg/dL Estim Creat Clear Calc Estimated GFR Random Glucose (60-115) mg/dL Lactic Acid (0.5-2.0) mmol/L Lactic Acid Fup @ 2Hr (0.5-2.0) mmol/L Calcium (8.4-10.2) mg/dL Magnesium (1.6-2.6) mg/dL Total Bilirubin (0.0-1.0) mg/dL Direct Bilirubin (0.0-0.5) mg/dL AST (5-31) U/L ALT (0-31) U/L Alkaline Phosphatase (39-117) U/L B-Natriuretic Peptide (<100) pg/mL Total Protein (6.5-8.0) g/dL Albumin (3.5-5.0) g/dL Lipase Cancelled (8-78) U/L Urine Color Urine Appearance Urine pH (5.0-8.0) Ur Specific [place] (1.005-1.025) Urine Protein (NEG-TRACE) MG/DL Urine Glucose (UA) (NEG) MG/DL Urine Ketones (NEG) MG/DL Urine Blood (NEG) Urine Nitrite (NEG) Ur Leukocyte Esterase (NEG) Urine RBC (0) /HPF Urine WBC (0-4) /HPF Ur Squamous Epith Cells /LPF Nov[place] Biurate Crystals /LPF Urine Bacteria /LPF Urine Test (NEGATIVE) Urine Opiates Screen (Not Detect) Acetaminophen < 1 (<30) mcg/mL Ur Barbiturates Screen (Not Detect) Ur Phencyclidine Scrn (Not Detect) Ur Amphetamines Screen (Not Detect) U Benzodiazepines Scrn (Not Detect) Urine Cocaine Screen (Not Detect) U Marijuana (THC) Screen (Not Detect) Ethyl Alcohol 282 mg/dL Blood Type Antibody Screen 09/09/20 09/09/20 09/09/20 Range/Units 16:49 16:50 16:50 WBC (4.8-10.8) X10*3/uL RBC (4.20-5.50) X10*6/uL Hgb (12.0-16.0) g/dl Hct (37-47) % MCV (80-98) fL MCH (27.0-33.0) pg MCHC (31.0-35.0) g/dl RDW (11.0-16.0) % Plt Count (160-400) X10*3/uL MPV (9.4-12.3) fL Immature Gran % (Auto) (0.0-0.4) % Neut % (Auto) (45-73) % Lymph % (Auto) (20-40) % [place] % (Auto) (2-11) % Eos % (Auto) (0-4) % Baso % (Auto) (0-2) % Lymph # (Auto) (1.2-4.9) X10*3/uL [place] # (Auto) (0.1-1.2) X10*3/uL Eos # (Auto) (0.0-0.4) X10*3/uL Baso # (Auto) (0.0-0.2) X10*3/uL Abs Immat Gran (auto) (0.00-0.03) X10*3/uL Absolute Neuts (auto) (2.0-8.3) X10*3/uL Absolute Nucleated RBC (0.0-0.012) X10*3/uL Nucleated RBC % (auto) (0.0-0.2) /100WBC PT (10.8-13.0) SEC INR (0.9-1.1) APTT (24.1-38.0) SEC Sodium (135-145) mmol/L Potassium (3.3-5.1) mmol/l Chloride (96-108) mmol/L Carbon Dioxide (22-29) mmol/L Anion Gap (12-20) BUN (9-16) mg/dL Creatinine (0.5-1.4) mg/dL Estim Creat Clear Calc Estimated GFR Random Glucose (60-115) mg/dL Lactic Acid (0.5-2.0) mmol/L Lactic Acid Fup @ 2Hr (0.5-2.0) mmol/L Calcium (8.4-10.2) mg/dL Magnesium (1.6-2.6) mg/dL Total Bilirubin (0.0-1.0) mg/dL Direct Bilirubin (0.0-0.5) mg/dL AST (5-31) U/L ALT (0-31) U/L Alkaline Phosphatase (39-117) U/L B-Natriuretic Peptide (<100) pg/mL Total Protein (6.5-8.0) g/dL Albumin (3.5-5.0) g/dL Lipase (8-78) U/L Urine Color ORANGE Urine Appearance TURBID Urine pH 6.5 (5.0-8.0) Ur Specific [place] 1.025 (1.005-1.025) Urine Protein 1+ H (NEG-TRACE) MG/DL Urine Glucose (UA) NEG (NEG) MG/DL Urine Ketones 5 (NEG) MG/DL Urine Blood NEG (NEG) Urine Nitrite POS H (NEG) Ur Leukocyte Esterase NEG (NEG) Urine RBC 0 (0) /HPF Urine WBC 0 (0-4) /HPF Ur Squamous Epith Cells TRACE /LPF [place] Biurate Crystals 2+ /LPF Urine Bacteria 1+ /LPF Urine Test NEGATIVE (NEGATIVE) Urine Opiates Screen Not Detected (Not Detect) Acetaminophen (<30) mcg/mL Ur Barbiturates Screen POSITIVE H (Not Detect) Ur Phencyclidine Scrn Not Detected (Not Detect) Ur Amphetamines Screen Not Detected (Not Detect) U Benzodiazepines Scrn Not Detected (Not Detect) Urine Cocaine Screen Not Detected (Not Detect) U Marijuana (THC) Screen POSITIVE H (Not Detect) Ethyl Alcohol mg/dL Blood Type O Negative Antibody Screen NEGATIVE 09/09/20 Range/Units 19:05 WBC (4.8-10.8) X10*3/uL RBC (4.20-5.50) X10*6/uL Hgb (12.0-16.0) g/dl Hct (37-47) % MCV (80-98) fL MCH (27.0-33.0) pg MCHC (31.0-35.0) g/dl RDW (11.0-16.0) % Plt Count (160-400) X10*3/uL MPV (9.4-12.3) fL Immature Gran % (Auto) (0.0-0.4) % Neut % (Auto) (45-73) % Lymph % (Auto) (20-40) % [place] % (Auto) (2-11) % Eos % (Auto) (0-4) % Baso % (Auto) (0-2) % Lymph # (Auto) (1.2-4.9) X10*3/uL [place] # (Auto) (0.1-1.2) X10*3/uL Eos # (Auto) (0.0-0.4) X10*3/uL Baso # (Auto) (0.0-0.2) X10*3/uL Abs Immat Gran (auto) (0.00-0.03) X10*3/uL Absolute Neuts (auto) (2.0-8.3) X10*3/uL Absolute Nucleated RBC (0.0-0.012) X10*3/uL Nucleated RBC % (auto) (0.0-0.2) /100WBC PT (10.8-13.0) SEC INR (0.9-1.1) APTT (24.1-38.0) SEC Sodium (135-145) mmol/L Potassium (3.3-5.1) mmol/l Chloride (96-108) mmol/L Carbon Dioxide (22-29) mmol/L Anion Gap (12-20) BUN (9-16) mg/dL Creatinine (0.5-1.4) mg/dL Estim Creat Clear Calc Estimated GFR Random Glucose (60-115) mg/dL Lactic Acid (0.5-2.0) mmol/L Lactic Acid Fup @ 2Hr 2.3 H* (0.5-2.0) mmol/L Calcium (8.4-10.2) mg/dL Magnesium (1.6-2.6) mg/dL Total Bilirubin (0.0-1.0) mg/dL Direct Bilirubin (0.0-0.5) mg/dL AST (5-31) U/L ALT (0-31) U/L Alkaline Phosphatase (39-117) U/L B-Natriuretic Peptide (<100) pg/mL Total Protein (6.5-8.0) g/dL Albumin (3.5-5.0) g/dL Lipase (8-78) U/L Urine Color Urine Appearance Urine pH (5.0-8.0) Ur Specific [place] (1.005-1.025) Urine Protein (NEG-TRACE) MG/DL Urine Glucose (UA) (NEG) MG/DL Urine Ketones (NEG) MG/DL Urine Blood (NEG) Urine Nitrite (NEG) Ur Leukocyte Esterase (NEG) Urine RBC (0) /HPF Urine WBC (0-4) /HPF Ur Squamous Epith Cells /LPF [place] Biurate Crystals /LPF Urine Bacteria /LPF Urine Test (NEGATIVE) Urine Opiates Screen (Not Detect) Acetaminophen (<30) mcg/mL Ur Barbiturates Screen (Not Detect) Ur Phencyclidine Scrn (Not Detect) Ur Amphetamines Screen (Not Detect) U Benzodiazepines Scrn (Not Detect) Urine Cocaine Screen (Not Detect) U Marijuana (THC) Screen (Not Detect) Ethyl Alcohol mg/dL Blood Type Antibody Screen <Brianda Trujillo NP - Last Filed: 09/09/20 23:53> Critical Care Time Critical Care Time Critical Care Time: Yes <Brianda Trujillo NP - Last Filed: 09/09/20 23:53> Total Critical Care Time: 60 <Brianda Trujillo NP - Last Filed: 09/09/20 23:53> Attestation: I have personally provided critical care time exclusive of time spent on separately billable procedures. Time includes review of laboratory data, radiology results, discussion with consultants, and monitoring for potential decompensation. Interventions were performed as documented. <Brianda Trujillo NP - Last Filed: 09/09/20 23:53> Discharge Plan Discharge Clinical Impression: Colitis, Acute alcoholic hepatitis, Alcohol abuse Alcohol withdrawal Qualifiers: Complication of substance-induced condition: with unspecified complication Qualified Code(s): F10.239 - Alcohol dependence with withdrawal, unspecified <FRANCIA Bailon - Last Filed: 09/09/20 16:39> Patient Disposition: Admitted As Inpatient <FRANCIA Bailon - Last Filed: 09/09/20 16:39> PMFSH Past Medical History Attestation statement: The following information was validated with the patient. <FRANCIA Bailon - Last Filed: 09/09/20 16:39> Medical History: Medical History Alcoholic cirrhosis of liver Asthma CHF (congestive heart failure) Chiari malformation CVA (cerebral vascular accident) Depression GI bleed Hepatitis C NSVT (nonsustained ventricular tachycardia) Peptic ulcer disease Seizure disorder Seizures <FRANCIA Bailon - Last Filed: 09/09/20 16:39> Surgical History: Surgical History Gastric bypass status for obesity Hx of cholecystectomy <FRANCIA Bailon - Last Filed: 09/09/20 16:39> Social History Social History: Social History Alcohol intake: current Alcohol intake frequency: 3 or more drinks per day Alcohol type: beer and hard liquor Smoking Status: Current every day smoker Advance Directives: No Advance Directives Information Provided: No <FRANCIA Bailon - Last Filed: 09/09/20 16:39>
--- NOTE | 2020-09-09 15:29 | US_ITS ---
EXAMINATION: US ABDOMEN LIMITED CLINICAL INFORMATION: Ascites check.. COMPARISON: CT abdomen and pelvis 08/24/2020. TECHNIQUE: Real-time imaging of the right upper quadrant abdominal viscera. FINDINGS: There is minimal fluid seen in the right lower quadrant, nothing substantiative to drain. US/US abdomen limited IMPRESSION: Minimal fluid in the right lower quadrant. Results were discussed with Renetta Scott by phone at 4:00 PM
[2020-09-09 16:30] VITALS: BP 103/64; PULSE 81; RESP 18; TEMP 36.6; O2SAT 100
[2020-09-09 16:58] LABS: MANUAL DIFF FLAG NO
[2020-09-09 17:07] LABS: Basophils Absolute Auto 0.1 X10*3/uL (0.0-0.2); Basophils Percent Auto 0.6 % (0-2); Eosinophils Absolute Auto 0.1 X10*3/uL (0.0-0.4); Eosinophils Percent Auto 0.5 % (0-4); Hematocrit 28.2 % (37-47); Hemoglobin 9.3 g/dl (12.0-16.0); Imm Gran Abs Auto 0.08 X10*3/uL (0.00-0.03); Imm Gran Pct Auto 0.6 % (0.0-0.4); Lymphocytes Absolute Auto 2.3 X10*3/uL (1.2-4.9); Mean Platelet Volume 8.8 fL (9.4-12.3); Monocytes Absolute Auto 0.8 X10*3/uL (0.1-1.2); Monocytes Percent Auto 5.9 % (2-11); Neutrophils Absolute Auto 9.6 X10*3/uL (2.0-8.3); Neutrophils Percent Auto 74.4 % (45-73); Platelet Count 183 X10*3/uL (160-400); Red Blood Count 2.82 X10*6/uL (4.20-5.50); White Blood Count 12.9 X10*3/uL (4.8-10.8)
[2020-09-09] MEDS: 0.9 % Sodium Chloride 1,000 ML 999 ML IVCONT ×3 (17:15→23:05)
[2020-09-09] MEDS: cefTRIAXone sodium 1 GM in 0.9 % Sodium Chloride 50 ML IV (17:15)
[2020-09-09] MEDS: fentaNYL citrate/PF 100 MCG/2 ML VIAL 50 MCG IVPUSH (17:15)
[2020-09-09 17:16] LABS: INTERNATIONAL NORM RATIO 1.4 (0.9-1.1); Prothrombin Time 16.7 SEC (10.8-13.0)
[2020-09-09] MEDS: ondansetron HCL 4 MG/2 ML VIAL IVPUSH (17:16)
[2020-09-09] MEDS: Pantoprazole Sodium 40 MG/10 ML VIAL IVPUSH (17:16)
[2020-09-09] MEDS: LORazepam 2 MG/ML VIAL 1 MG IVPUSH (17:17)
[2020-09-09 17:19] LABS: Partial Thromboplastin Time 32.9 SEC (24.1-38.0)
[2020-09-09 17:26] VITALS: BP 103/64; PULSE 81; RESP 18; TEMP 36.6; O2SAT 100
[2020-09-09 17:28] LABS: UPreg QC Valid YES; Urine Pregnancy NEGATIVE (NEGATIVE)
[2020-09-09 17:34] LABS: Amphetamine Screen Urine Not Detected (Not Detect); Barbiturates, Urine POSITIVE (Not Detect); Benzodiazepines Screen Urine Not Detected (Not Detect); Cannabinoid Screen Urine POSITIVE (Not Detect); Cocaine Screen Urine Not Detected (Not Detect); Opiate Screen Urine Not Detected (Not Detect); Phencyclidine Screen Urine Not Detected (Not Detect)
[2020-09-09 17:34] LABS: Ethanol 282 mg/dL
[2020-09-09 17:36] LABS: Acetaminophen LAB < 1 mcg/mL (<30)
[2020-09-09 17:37] LABS: B Type Natriuretic Peptide 91 pg/mL (<100)
[2020-09-09 17:39] LABS: Glucose Urine UA NEG (NEG); Leukocyte Esterase Urine NEG (NEG); Nitrite Urine POS (NEG); PH 6.5 (5.0-8.0); Specific Gravity - Urine 1.025 (1.005-1.025); Urine Blood NEG (NEG); Urine Ketones 5 MG/DL (NEG); Urine Protein 1+ MG/DL (NEG-TRACE)
[2020-09-09 17:47] LABS: Appearance Urine TURBID; Color Urine ORANGE
[2020-09-09 17:50] LABS: Alanine Aminotransferase 24 U/L (0-31); Albumin Level 2.6 g/dL (3.5-5.0); Alkaline Phosphatase 301 U/L (39-117); Anion Gap 17 (12-20); Aspartate Amino Transferase 177 U/L (5-31); Bilirubin Direct 2.7 mg/dL (0.0-0.5); Bilirubin Total 3.8 mg/dL (0.0-1.0); Blood Urea Nitrogen 4 mg/dL (9-16); Calcium 7.2 mg/dL (8.4-10.2); Carbon Dioxide 20 mmol/L (22-29); Chloride 108 mmol/L (96-108); Creatinine Clr Calc Pharmacy 139.1; Estimated Glomerular Filt Rate > 60; Glucose Random 80 mg/dL (60-115); Lipase 26 U/L (8-78); Magnesium 1.7 mg/dL (1.6-2.6); Potassium 3.7 mmol/l (3.3-5.1); Sodium 141 mmol/L (135-145); Total Protein 6.5 g/dL (6.5-8.0)
[2020-09-09 17:52] LABS: Bacteria Urine 1+ /LPF; RBC Urine 0 /HPF (0); Squamous Epithelial Cell Urine TRACE /LPF; WBC Urine 0 /HPF (0-4)
[2020-09-09 17:55] LABS: Lactic Acid 2.7 mmol/L (0.5-2.0)
--- NOTE | 2020-09-09 18:08 | CT_ITS ---
EXAMINATION: CT ABDOMEN AND PELVIS WITH CONTRAST CLINICAL INFORMATION: Abdominal pain. COMPARISON: Multiple prior studies. Most recent exam CT scan abdomen and pelvis 08/24/2020. Ultrasound of the abdomen limited 09/09/2020. TECHNIQUE: Multidetector volumetric images were obtained from the superior aspect of the liver through the pubic symphysis following administration 85 mL of Omnipaque 350 intravenous contrast. Sagittal and coronal reformatted images were obtained on the technologist's workstation. Oral contrast: No. This CT examination was performed using dose optimization techniques as appropriate, variously including the following: *Automated exposure control *Adjustment of mA and/or kV according to patient size (this includes techniques or standardized protocols for targeted exams where dose is matched to indication/reason for exam; i.e. extremities or head) *Use of iterative reconstruction technique DLP: 459 mGy-cm FINDINGS: LUNG BASES: The visualized lung bases are unremarkable. LIVER, GALLBLADDER, AND BILIARY TREE: The liver is enlarged. The right lobe of liver measures 23.5 cm superior-inferior. Liver is markedly heterogeneous in attenuation and has remained unchanged since prior CAT scan. No specific liver lesion evident. No intrahepatic bile duct dilatation. Status post cholecystectomy. PANCREAS: Unremarkable. SPLEEN: Unremarkable. ADRENAL GLANDS: Unremarkable. KIDNEYS AND URETERS: The kidneys are normal in size, shape, and attenuation. No hydronephrosis, hydroureter, or calculi seen. No perinephric stranding. BLADDER: Unremarkable. GASTROINTESTINAL TRACT: Surgical sutures of the stomach and proximal small bowel loops consistent with gastric bypass surgery. There is mild submucosal edema of the duodenum and proximal jejunal bowel loops without obstruction. This is new since the prior CAT scan of 08/24/2020. There is persistent mural thickening of the entire colon. This was present on the exam of 08/24/2020. Since prior exam there is increasing mural thickening of the proximal sigmoid colon but the remainder of the colon is similar to prior study. There is no point of obstruction. There is no air in the bowel wall. There is no portal venous gas. MESENTERY: Small to moderate volume of abdominal ascites. This is new since CAT scan 08/24/2020. There is no free air. No focal inflammation. ABDOMINAL WALL: No significant hernia is appreciated. LYMPH NODES: Stable small retroperitoneal lymph nodes. No bulky lymphadenopathy. VASCULAR: Normal enhancement of the vasculature of the abdomen and pelvis. This includes portal vein and splenic vein which are normally enhancing without occlusion or thrombus. PELVIC VISCERA: Unremarkable. OSSEOUS STRUCTURES: Unremarkable. CT/CT abdomen pelvis w con IMPRESSION: 1. Hepatomegaly. Diffuse heterogeneous low attenuation of liver parenchyma similar to prior CAT scan 08/24/2020. 2. Interval development of small to moderate volume of abdominal ascites. 3. Persistent diffuse edema and mural wall thickening of the entire colon. This is worsening in the sigmoid area since prior CAT scan 08/24/2020. 4. There is now submucosal edema and thickening of the wall of the duodenum and proximal jejunal bowel loops new since CAT scan 08/24/2020. 5. No evidence of portal venous gas. No air in the bowel wall. Normal enhancement of the abdominal vasculature. 6. Status post gastric bypass surgery.
[2020-09-09] MEDS: metroNIDAZOLE/NS 500 MG/100 ML PIGGYBACK 100 MG IV (18:11)
[2020-09-09] MEDS: diphenhydrAMINE HCL 50 MG/ML VIAL 25 MG IVPUSH (18:11)
[2020-09-09] MEDS: fentaNYL citrate/PF 100 MCG/2 ML VIAL 25 MCG IVPUSH (18:12)
[2020-09-09] MEDS: PHENobarbitaL sodium 130 MG/ML VIAL 218 MG IM (18:12)
[2020-09-09] MEDS: Metoclopramide HCl 10 MG/2 ML VIAL IVPUSH (18:12)
--- NOTE | 2020-09-09 18:22 | PC.NURSE ---
pt to ct scan
[2020-09-09] MEDS: iohexoL 350 MG/ML 100 ML INFUS..BTL IV (18:41)
[2020-09-09 18:57] LABS: Reflex Lactate? Lactic Acid Added
[2020-09-09 19:37] LABS: ~Lactic Acid-LAB USE ONLY 2.3 mmol/L (0.5-2.0)
[2020-09-09 19:49] VITALS: BP 90/49; PULSE 98; TEMP 37.2; O2SAT 100
--- NOTE | 2020-09-09 20:57 | P.HPIM_ITS ---
History of Present Illness Date of Service: 09/09/20 Chief Complaint: Nausea/Vomiting 30 y/o female with known hx of Alcohol abuse and colitis who preented from her PCP office due to intractable nausea and vomiting, abdominal pain and reporting vomiting blood. Patient is a very poor historian and not cooperative on giving hx. Patient reports that symptoms started since she had her last drink of alcohol around 2-3 am last night. Patient reports drinking heavily vodka but does not provide the amount of alcohol that drinks per day. Denies any chest pain, SOB or fever. Does reports occasional diarhea. Patient has been in our hospital in the past multiple times due to same symptoms of nausea, hematemesis and abdominal pain. Has signed out AMA in the past prior to having and GI work up and has refused detox admission previously. On presentation to the ED patient was noted to be borderline hypotensive now 90/49 mmHg and HR of 104 which improved after IV fluid administration. WBC of 12.9, Hgb of 9.3 (baseline), lactate of 107, total bili of 3.8 with direct of 2.7 (which improved from last time), UTI. Patient was given anti emetics, IV rocephin/flagyl and PPI. CT abdomen consistent for colitis, hepatomegaly and small ascites. Started on phenobarbital protocol per ED and decision for admission given. Patient seen and examined at the bedside, laying down in bed in no acute distress. Not cooperative. ROS as above otherwise negativce. Physical exam positive for diffuse abdominal tenderness but no evidence of masses on palpation. PAST MEDICAL HISTORY: 1. ALCOHOL INDUCED STEATOHEPATITIS 2. Alcohol dependence 3. chronic anemia 4. NSVT (nonsustained ventricular tachycardia) 5. 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 Chiari malformation. 2. Cholecystectomy. 3. Multiple EGDs. 4. Gastric bypass surgery. FAMILY HISTORY: CAD, HYPERTENSION, STROKE SOCIAL HISTORY: Drinks Alcohol Review of Systems Gastrointestinal: Gastrointestinal: Reports abdominal pain, Reports nausea, Re ports vomiting and Reports hematemesis [facility] Medical History Alcoholic cirrhosis of liver Asthma CHF (congestive heart failure) Chiari malformation CVA (cerebral vascular accident) Depression GI bleed Hepatitis C NSVT (nonsustained ventricular tachycardia) Peptic ulcer disease Seizure disorder Seizures Functional capacity: independent ambulation Family history: reviewed and not pertinent Surgical History Gastric bypass status for obesity Hx of cholecystectomy Social History Alcohol intake: current Alcohol intake frequency: 3 or more drinks per day Alcohol type: beer and hard liquor Smoking Status: Current every day smoker Advance Directives: No Advance Directives Information Provided: No Meds Allergies Allergy/AdvReac Type Severity Reaction Status Date / Time morphine [MORPHINE] Allergy Mild HIVES Unverified 07/22/20 17:44 banana [BANANA] AdvReac Severe DIFFICULTY Unverified 07/22/20 17:44 BREATHING morphine and related Allergy Unknown Uncoded 07/06/20 00:00 Home Medications Medication Instructions Recorded Confirmed Type midodrine 1 tab PO TID 09/09/20 09/09/20 History mirtazapine 1 tab SUBLINGUAL BEDTIME 09/09/20 09/09/20 History Physical Exam Vital Signs and Narrative: Vital Signs: Last Vital Signs Temp 98.9 F 09/09/20 19:49 Pulse 98 09/09/20 19:49 Resp 18 09/09/20 17:26 BP 90/49 L 09/09/20 19:49 Pulse Ox 100 09/09/20 19:49 Body Mass Index 27.1 Const: General: other (not cooperative but comfortable) Orientation/consciousness: patient oriented x3 HENMT: Head: Yes normal to inspection Eyes: General: appearance normal, both eyes and all related structures Neck: Yes normal visual inspection Chest: Chest palpation & inspection: normal inspection of the chest Resp: Effort & Inspection: normal respiratory effort Cardio: Jugular venous distension: no JVD Rhythm: regular rhythm Heart sounds: S1 normal heart sound present and S2 normal heart sound present GI: Inspection: Yes other (diffuse abdominal tenderness ) Skin: General skin exam: no rashes or lesions noted Neuro: General: patient oriented x3 Extrem: General: Yes normal to inspection Psych: Appearance: grossly normal Results Labs Labs: Laboratory Tests 09/09/20 09/09/20 09/09/20 16:47 16:47 16:48 WBC 12.9 H RBC 2.82 L Hgb 9.3 L Hct 28.2 L MCV 100.0 H MCH 33.0 MCHC 33.0 RDW 25.0 H Plt Count 183 D MPV 8.8 L Immature Gran % (Auto) 0.6 H Neut % (Auto) 74.4 H Lymph % (Auto) 18.0 L [place] % (Auto) 5.9 Eos % (Auto) 0.5 Baso % (Auto) 0.6 Lymph # (Auto) 2.3 [place] # (Auto) 0.8 Eos # (Auto) 0.1 Baso # (Auto) 0.1 Abs Immat Gran (auto) 0.08 H Absolute Neuts (auto) 9.6 H Absolute Nucleated RBC 0.000 Nucleated RBC % (auto) 0.0 PT 16.7 H INR 1.4 H APTT 32.9 Sodium 141 Potassium 3.7 D Chloride 108 Carbon Dioxide 20 L Anion Gap 17 BUN 4 L Creatinine 0.49 L Estim Creat Clear Calc 139.1 Estimated GFR > 60 Random Glucose 80 Lactic Acid Lactic Acid Fup @ 2Hr Calcium 7.2 L D Magnesium 1.7 Total Bilirubin 3.8 H Direct Bilirubin 2.7 H AST 177 H ALT 24 Alkaline Phosphatase 301 H B-Natriuretic Peptide Total Protein 6.5 Albumin 2.6 L Lipase 26 Urine Color Urine Appearance Urine pH Ur Specific [place] Urine Protein Urine Glucose (UA) Urine Ketones Urine Blood Urine Nitrite Ur Leukocyte Esterase Urine RBC Urine WBC Ur Squamous Epith Cells Daniele Biurate Crystals Urine Bacteria Urine Test Urine Opiates Screen Acetaminophen Ur Barbiturates Screen Ur Phencyclidine Scrn Ur Amphetamines Screen U Benzodiazepines Scrn Urine Cocaine Screen U Marijuana (THC) Screen Ethyl Alcohol Blood Type Antibody Screen 09/09/20 09/09/20 09/09/20 16:48 16:48 16:48 WBC RBC Hgb Hct MCV MCH MCHC RDW Plt Count MPV Immature Gran % (Auto) Neut % (Auto) Lymph % (Auto) [place] % (Auto) Eos % (Auto) Baso % (Auto) Lymph # (Auto) [place] # (Auto) Eos # (Auto) Baso # (Auto) Abs Immat Gran (auto) Absolute Neuts (auto) Absolute Nucleated RBC Nucleated RBC % (auto) PT INR APTT Sodium Potassium Chloride Carbon Dioxide Anion Gap BUN Creatinine Estim Creat Clear Calc Estimated GFR Random Glucose Lactic Acid 2.7 H* Lactic Acid Fup @ 2Hr Calcium Magnesium Cancelled Total Bilirubin Direct Bilirubin AST ALT Alkaline Phosphatase B-Natriuretic Peptide 91 Total Protein Albumin Lipase Cancelled Urine Color Urine Appearance Urine pH Ur Specific [place] Urine Protein Urine Glucose (UA) Urine Ketones Urine Blood Urine Nitrite Ur Leukocyte Esterase Urine RBC Urine WBC Ur Squamous Epith Cells Daniele Biurate Crystals Urine Bacteria Urine Test Urine Opiates Screen Acetaminophen Ur Barbiturates Screen Ur Phencyclidine Scrn Ur Amphetamines Screen U Benzodiazepines Scrn Urine Cocaine Screen U Marijuana (THC) Screen Ethyl Alcohol Blood Type Antibody Screen 09/09/20 09/09/20 09/09/20 16:48 16:49 16:49 WBC RBC Hgb Hct MCV MCH MCHC RDW Plt Count MPV Immature Gran % (Auto) Neut % (Auto) Lymph % (Auto) [place] % (Auto) Eos % (Auto) Baso % (Auto) Lymph # (Auto) [place] # (Auto) Eos # (Auto) Baso # (Auto) Abs Immat Gran (auto) Absolute Neuts (auto) Absolute Nucleated RBC Nucleated RBC % (auto) PT INR APTT Sodium Potassium Chloride Carbon Dioxide Anion Gap BUN Creatinine Estim Creat Clear Calc Estimated GFR Random Glucose Lactic Acid Lactic Acid Fup @ 2Hr Calcium Magnesium Total Bilirubin Direct Bilirubin AST ALT Alkaline Phosphatase B-Natriuretic Peptide Total Protein Albumin Lipase Cancelled Urine Color Urine Appearance Urine pH Ur Specific [place] Urine Protein Urine Glucose (UA) Urine Ketones Urine Blood Urine Nitrite Ur Leukocyte Esterase Urine RBC Urine WBC Ur Squamous Epith Cells [place] Biurate Crystals Urine Bacteria Urine Test Urine Opiates Screen Acetaminophen < 1 Ur Barbiturates Screen Ur Phencyclidine Scrn Ur Amphetamines Screen U Benzodiazepines Scrn Urine Cocaine Screen U Marijuana (THC) Screen Ethyl Alcohol 282 Blood Type Antibody Screen 09/09/20 09/09/20 09/09/20 16:49 16:50 16:50 WBC RBC Hgb Hct MCV MCH MCHC RDW Plt Count MPV Immature Gran % (Auto) Neut % (Auto) Lymph % (Auto) [place] % (Auto) Eos % (Auto) Baso % (Auto) Lymph # (Auto) [place] # (Auto) Eos # (Auto) Baso # (Auto) Abs Immat Gran (auto) Absolute Neuts (auto) Absolute Nucleated RBC Nucleated RBC % (auto) PT INR APTT Sodium Potassium Chloride Carbon Dioxide Anion Gap BUN Creatinine Estim Creat Clear Calc Estimated GFR Random Glucose Lactic Acid Lactic Acid Fup @ 2Hr Calcium Magnesium Total Bilirubin Direct Bilirubin AST ALT Alkaline Phosphatase B-Natriuretic Peptide Total Protein Albumin Lipase Urine Color ORANGE Urine Appearance TURBID Urine pH 6.5 Ur Specific [place] 1.025 Urine Protein 1+ H Urine Glucose (UA) NEG Urine Ketones 5 Urine Blood NEG Urine Nitrite POS H Ur Leukocyte Esterase NEG Urine RBC 0 Urine WBC 0 Ur Squamous Epith Cells TRACE Daniele Biurate Crystals 2+ Urine Bacteria 1+ Urine Test NEGATIVE Urine Opiates Screen Not Detected Acetaminophen Ur Barbiturates Screen POSITIVE H Ur Phencyclidine Scrn Not Detected Ur Amphetamines Screen Not Detected U Benzodiazepines Scrn Not Detected Urine Cocaine Screen Not Detected U Marijuana (THC) Screen POSITIVE H Ethyl Alcohol Blood Type O Negative Antibody Screen NEGATIVE 09/09/20 19:05 WBC RBC Hgb Hct MCV MCH MCHC RDW Plt Count MPV Immature Gran % (Auto) Neut % (Auto) Lymph % (Auto) [place] % (Auto) Eos % (Auto) Baso % (Auto) Lymph # (Auto) [place] # (Auto) Eos # (Auto) Baso # (Auto) Abs Immat Gran (auto) Absolute Neuts (auto) Absolute Nucleated RBC Nucleated RBC % (auto) PT INR APTT Sodium Potassium Chloride Carbon Dioxide Anion Gap BUN Creatinine Estim Creat Clear Calc Estimated GFR Random Glucose Lactic Acid Lactic Acid Fup @ 2Hr 2.3 H* Calcium Magnesium Total Bilirubin Direct Bilirubin AST ALT Alkaline Phosphatase B-Natriuretic Peptide Total Protein Albumin Lipase Urine Color Urine Appearance Urine pH Ur Specific [place] Urine Protein Urine Glucose (UA) Urine Ketones Urine Blood Urine Nitrite Ur Leukocyte Esterase Urine RBC Urine WBC Ur Squamous Epith Cells [place] Biurate Crystals Urine Bacteria Urine Test Urine Opiates Screen Acetaminophen Ur Barbiturates Screen Ur Phencyclidine Scrn Ur Amphetamines Screen U Benzodiazepines Scrn Urine Cocaine Screen U Marijuana (THC) Screen Ethyl Alcohol Blood Type Antibody Screen Imaging Radiologist's Impressions: Impressions Abdomen Ultrasound 09/09/20 15:29 IMPRESSION: Minimal fluid in the right lower quadrant. Results were discussed with Renetta Scott by phone at 4:00 PM Abdomen/Pelvis CT 09/09/20 18:08 IMPRESSION: 1. Hepatomegaly. Diffuse heterogeneous low attenuation of liver parenchyma similar to prior CAT scan 08/24/2020. 2. Interval development of small to moderate volume of abdominal ascites. 3. Persistent diffuse edema and mural wall thickening of the entire colon. This is worsening in the sigmoid area since prior CAT scan 08/24/2020. 4. There is now submucosal edema and thickening of the wall of the duodenum and proximal jejunal bowel loops new since CAT scan 08/24/2020. 5. No evidence of portal venous gas. No air in the bowel wall. Normal enhancement of the abdominal vasculature. 6. Status post gastric bypass surgery. Assessment and Plan (1) Alcohol withdrawal: Qualifiers: Complication of substance-induced condition: uncomplicated Qualified Code(s): F10.230 - Alcohol dependence with withdrawal, uncomplicated Status: Acute started on phenobarbital per protocol by ED refuse detox on present admission and would like to be only treated for the withdrawal symptoms start thiamine supplementation as ordered start folate acid supplementation close monitoring for now (2) Colitis: Status: Acute evident on CT NPO for now advance diet as tolerated advised to avoid alcohol Start Levaquin and flagyl for now GI evaluation in the am (3) Depression with anxiety: Status: Acute continue with mirtazapine home dose (4) Hematemesis: Status: Acute Hgb remains stable and patient didnt have any episodes of hematemesis while in the ED Likely secondary to alcoholic gastritis Continue with PPI home dose monitor H and H closely and transfuse if hgb <7 GI evaluation in the am for possible EGD (5) Ascites: Status: Acute small amount on CT. Continue with monitor for now (6) Nausea & vomiting: Status: Acute likely secondary to alcoholic gastritis Anti emetics advance diet as tolerated (7) Orthostatic hypotension: Status: Acute continue with midodrine home dose
[2020-09-09 21:13] LABS: Reflex Lactate? 2 Y
[2020-09-09] MEDS: PHENobarbitaL sodium 130 MG/ML VIAL 164 MG IM (22:13)
[2020-09-09] MEDS: 0.9 % Sodium Chloride 500 ML 999 ML IVCONT (23:04)
--- NOTE | 2020-09-09 23:47 | PC.NURSE ---
pt transfered to med surg [id number] report given by Vitor izaguirre while this rn was on dinner break. pt transfered at 0258
[2020-09-09 23:58] VITALS: BP 98/45; PULSE 100; RESP 19; TEMP 37; O2SAT 99
[2020-09-09 23:58] LABS: ~Lactic Acid-LAB USE ONLY 2.5 mmol/L (0.5-2.0)
--- NOTE | 2020-09-10 | ECG_ITS ---
Test Reason : QTc Blood Pressure : / mmHG Vent. Rate : 090 BPM Atrial Rate : 090 BPM P-R Int : 144 ms QRS Dur : 084 ms QT Int : 418 ms P-R-T Axes : 040 046 018 degrees QTc Int : 511 ms Normal sinus rhythm Nonspecific ST abnormality Abnormal ECG When compared with ECG of 09-SEP-2020 23:16, No significant change was found Heart rate has decreased Referred By: Jose Granados Electronically Signed By:MOI GARCIA MD
--- NOTE | 2020-09-10 00:38 | PC.NURSE ---
0010 P-LAB CALLED WITH A CRITICAL LACTIC ACID 2.5 I- NOTIFIED.ORDERED TO CONTINUE TO MONITOR
[2020-09-10 00:39] LABS: HIV AB/AG Nonreactive (Nonreactive); HIV Num 1 0.11 S/CO (0.00-0.99)
[2020-09-10] MEDS: Calcium Gluconate/NaCl,Iso-Osm 1 GM/50 ML PLAST..BAG IV (00:46)
[2020-09-10] MEDS: Ibuprofen 600 MG TABLET PO (01:46)
--- NOTE | 2020-09-10 03:04 | PM.EVENT ---
Event Note Date of Service: 09/10/20 Event Note: Prolonged QT on EKG found. Levaquin discontinued. will start with Rocephin instead for gram neg coverage. Will give one dose of IV mag 1 g. Repeat EKG in the am.
[2020-09-10] MEDS: Magnesium Sulfate/H2O 2 GM/50 ML PIGGYBACK IV (03:38)
[2020-09-10 04:00] VITALS: BP 95/49; PULSE 80; RESP 19; TEMP 36.3; O2SAT 95
[2020-09-10 04:32] LABS: HBS Num1 51.55 mIU/mL (0-7.99); HBc Num1 0.29 S/CO (0.00-0.79); Hepatitis B Core Antibody Nonreactive (Nonreactive); ~HepC Num1 0.35 S/CO (0.00-0.79); ~Hepatitis B Surface Antibody REACTIVE (Nonreactive)
[2020-09-10 04:35] LABS: HBsAGNum1 0.19 S/CO (0.00-0.99); Hepatitis B Surface Antigen Negative (Negative)
[2020-09-10 04:59] LABS: Hepatitis C Ab Exposure Source NonReactive (Nonreactive)
--- NOTE | 2020-09-10 05:00 | PC.NURSE ---
At 12:40 on 09/10/2020 Patients BP was 98/48. Informed Dr. Ric Granados and he said to hold the Phenobarbital until next dose and reassessment.
[2020-09-10] MEDS: cefTRIAXone sodium 1 GM in 0.9 % Sodium Chloride 50 ML IV (06:06)
[2020-09-10 07:19] VITALS: BP 91/48; PULSE 87; RESP 17; TEMP 36.7; O2SAT 99
[2020-09-10] MEDS: 0.9 % Sodium Chloride Flush 3 ML SYRINGE IVFLUSH (07:45)
[2020-09-10 07:53] LABS: Glucose, Whole Blood 70 mg/dL (60-115)
[2020-09-10 08:58] LABS: MANUAL DIFF FLAG NO
[2020-09-10 09:05] LABS: Basophils Absolute Auto 0.1 X10*3/uL (0.0-0.2); Basophils Percent Auto 0.7 % (0-2); Eosinophils Absolute Auto 0.1 X10*3/uL (0.0-0.4); Eosinophils Percent Auto 0.6 % (0-4); Hemoglobin 8.3 g/dl (12.0-16.0); Imm Gran Abs Auto 0.05 X10*3/uL (0.00-0.03); Imm Gran Pct Auto 0.6 % (0.0-0.4); Lymphocytes Absolute Auto 1.6 X10*3/uL (1.2-4.9); Lymphocytes Percent Auto 18.4 % (20-40); Mean Corpuscular HGB Conc 33.2 g/dl (31.0-35.0); Mean Corpuscular Hemoglobin 33.2 pg (27.0-33.0); Mean Platelet Volume 9.4 fL (9.4-12.3); Monocytes Absolute Auto 0.8 X10*3/uL (0.1-1.2); Monocytes Percent Auto 8.4 % (2-11); Neutrophils Absolute Auto 6.4 X10*3/uL (2.0-8.3); Neutrophils Percent Auto 71.3 % (45-73); Platelet Count 128 X10*3/uL (160-400); Red Cell Distribution Width 25.2 % (11.0-16.0); White Blood Count 8.9 X10*3/uL (4.8-10.8)
[2020-09-10 09:34] LABS: Lactate Dehydrogenase 171 U/L (122-220)
[2020-09-10] MEDS: Omeprazole 20 MG CAPSULE.DR PO (09:34)
[2020-09-10] MEDS: oxyCODONE HCl Immed Release 5 MG TABLET PO (09:34)
[2020-09-10] MEDS: 0.9 % Sodium Chloride 1,000 ML 75 ML IVCONT (09:34)
[2020-09-10] MEDS: metroNIDAZOLE/NS 500 MG/100 ML PIGGYBACK 100 MG IV (09:34)
[2020-09-10] MEDS: Midodrine HCl 5 MG TABLET PO (09:35)
[2020-09-10] MEDS: PHENobarbitaL 30 MG TABLET PO (09:35)
[2020-09-10] MEDS: Folic Acid 1 MG TABLET PO (09:35)
[2020-09-10] MEDS: Thiamine HCL 100 MG TABLET PO (09:35)
--- NOTE | 2020-09-10 09:40 | PM.GICN ---
History of Present Illness Data of Consult Primary Care Provider: Wilder Carty MD [facility] Past Medical History Medical History Alcoholic cirrhosis of liver Asthma CHF (congestive heart failure) Chiari malformation CVA (cerebral vascular accident) Depression GI bleed Hepatitis C NSVT (nonsustained ventricular tachycardia) Peptic ulcer disease Seizure disorder Seizures Functional capacity: independent ambulation Family History Family history: reviewed and not pertinent Surgical History Surgical History Gastric bypass status for obesity Hx of cholecystectomy Social History Social History Household Members: Family Housing: Apartment Do you presently have visiting nurse or other home services: Yes ([employer]) Alcohol intake: current Alcohol intake frequency: 3 or more drinks per day Alcohol type: beer and hard liquor Smoking Status: Current every day smoker Tobacco Type: Cigarette Years Smoked: 12 Smoked in Last 30 Days: Yes Patient Interested in Nicotine Replacement: Yes Patient Given Instructions on How to Stop Smoking: Yes Date Education Initiated: 09/09/20 Second Hand Smoke Exposure: Yes Use of substances other than those prescribed or required for medical reasons: No Have you been hit, kicked, punched, or otherwise hurt by someone within the past year? If so, by whom?: No Do you feel safe in your current relationship?: Yes Is there a partner from a previous relationship who is making you feel unsafe now?: No Are you made to feel afraid or neglected: No Advance Directives: No Advance Directives Information Provided: No Do you have thoughts of harming others: None Do you have a plan to hurt others: No Plan Recently lost weight without trying: Yes Meds Allergies Allergy/AdvReac Type Severity Reaction Status Date / Time morphine [MORPHINE] Allergy Mild HIVES Unverified 07/22/20 17:44 banana [BANANA] AdvReac Severe DIFFICULTY Unverified 07/22/20 17:44 BREATHING morphine and related Allergy Unknown Uncoded 07/06/20 00:00 Home Medications Medication Instructions Recorded Confirmed Type midodrine 1 tab PO TID 09/09/20 09/09/20 History mirtazapine 1 tab SUBLINGUAL BEDTIME 09/09/20 09/09/20 History Physical Exam Vital Signs: Vital Signs: Last Vital Signs Temp 98.0 F 09/10/20 07:19 Pulse 87 09/10/20 07:19 Resp 17 09/10/20 07:19 BP 91/48 L 09/10/20 07:19 Pulse Ox 99 09/10/20 07:19 Body Mass Index 27.1 Results Labs CBC & Chem 7: 09/10/20 08:16 09/09/20 16:47 Labs: Short CBC 09/09/20 09/10/20 Range/Units 16:47 08:16 WBC 12.9 H 8.9 (4.8-10.8) X10*3/uL Hgb 9.3 L 8.3 L (12.0-16.0) g/dl Hct 28.2 L 25.0 L (37-47) % Plt Count 183 D 128 L D (160-400) X10*3/uL BMP 09/09/20 16:47 Sodium 141 Potassium 3.7 D Chloride 108 Carbon Dioxide 20 L BUN 4 L Creatinine 0.49 L Calcium 7.2 L D Liver Function 09/09/20 Range/Units 16:47 Total Bilirubin 3.8 H (0.0-1.0) mg/dL Direct Bilirubin 2.7 H (0.0-0.5) mg/dL AST 177 H (5-31) U/L ALT 24 (0-31) U/L Alkaline Phosphatase 301 H (39-117) U/L Albumin 2.6 L (3.5-5.0) g/dL Urine 09/09/20 Range/Units 16:50 Urine Color ORANGE Urine Appearance TURBID Urine pH 6.5 (5.0-8.0) Ur Specific [place] 1.025 (1.005-1.025) Urine Protein 1+ H (NEG-TRACE) MG/DL Urine Glucose (UA) NEG (NEG) MG/DL
[2020-09-10 09:55] LABS: Anion Gap 11 (12-20); Blood Urea Nitrogen 4 mg/dL (9-16); Calcium 6.8 mg/dL (8.4-10.2); Carbon Dioxide 22 mmol/L (22-29); Chloride 108 mmol/L (96-108); Creatinine Clr Calc Pharmacy 128.6; Estimated Glomerular Filt Rate > 60; Glucose Random 64 mg/dL (60-115); Potassium 2.8 mmol/l (3.3-5.1); Sodium 138 mmol/L (135-145)
[2020-09-10] MEDS: Nicotine 14 MG PATCH.TD24 TRANSDERMA (11:12)
[2020-09-10 11:19] VITALS: BP 111/59; PULSE 85; RESP 18; TEMP 36.6; O2SAT 99
[2020-09-10 11:49] LABS: Glucose, Whole Blood 70 mg/dL (60-115)
--- NOTE | 2020-09-10 12:06 | PM.DS ---
DS: Providers Provider Date of admission: 09/09/20 21:24 Primary care physician: Wilder Hernandez. Consults: 09/09/20 23:43 Consult to Gastroenterology [place]ine Consulting [place] [facility] [place] Reason for consultation: colitis Has provider been notified: No DS: Diagnosis Discharge Diagnosis (1) Alcohol withdrawal: Status: Acute (2) Colitis: Status: Acute (3) Depression with anxiety: Status: Acute (4) Hematemesis: Status: Acute (5) Ascites: Status: Acute (6) Nausea & vomiting: Status: Acute (7) Orthostatic hypotension: Status: Acute DS: Summary Hospital Course Hospital Course: 30-year-old female with active alcohol abuse cirrhosis of liver admitted with upper GI bleed and nausea and vomiting, patient was started on IV fluids, and supportive treatment and PPI , GI consult was requested, patient refused to stay in the hospital and refused further treatment, explained to patient risk of leaving the hospital and not getting treatment including , patient understands the risk but still decided to leave, patient left against medical advice, patient was alert oriented at the time of discharge Time Spent with Patient Time attestation: Total time spent providing and/or coordinating discharge services: Physical Exam Vital Signs: Vital Signs: Last Vital Signs Temp 97.9 F 09/10/20 11:19 Pulse 85 09/10/20 11:19 Resp 18 09/10/20 11:19 BP 111/59 L 09/10/20 11:19 Pulse Ox 99 09/10/20 11:19 Body Mass Index 27.1 Const: General: other (not cooperative but comfortable) Orientation/consciousness: patient oriented x3 HENMT: Head: Yes normal to inspection Eyes: General: appearance normal, both eyes and all related structures Neck: Neck: Yes normal visual inspection Chest: Chest palpation & inspection: normal inspection of the chest Resp: Effort & Inspection: normal respiratory effort Cardio: Jugular venous distension: no JVD Rhythm: regular rhythm Heart sounds: S1 normal heart sound present and S2 normal heart sound present GI: Inspection: Yes other (diffuse abdominal tenderness ) Skin: General skin exam: no rashes or lesions noted Neuro: General: patient oriented x3 Extrem: General: Yes normal to inspection Psych: Appearance: grossly normal DS: Data Data Completed and Pending Labs on day of discharge: 09/09/20 ECG 12 lead EKG Stat 09/09/20 15:11 LORazepam [Ativan] 1 mg IVPUSH ONCE ONE Pantoprazole Sodium [Protonix] 40 mg IVPUSH ONCE ONE fentaNYL citrate/PF [Sublimaze] 50 mcg IVPUSH ONCE ONE ondansetron HCL [Zofran] 4 mg IVPUSH ONCE ONE 09/09/20 15:15 0.9 % Sodium Chloride [Ns] 1,000 ml IVCONT 999 mls/hr 09/09/20 15:29 US abdomen limited Stat 09/09/20 16:37 cefTRIAXone sodium [Rocephin] 1 gm 0.9 % Sodium Chloride [Ns] 50 ml IV ONCE metroNIDAZOLE/NS [Flagyl] 500 mg in 100 ml IV ONCE 09/09/20 16:47 Basic Metabolic Panel Stat Complete Blood Count Auto Diff Stat Lipase Stat Liver Panel Stat Magnesium Stat 09/09/20 16:48 B Type Natriuretic Peptide Stat Ethanol Stat Lactic Acid Stat Partial Thromboplastin Time Stat Prothrombin Time INR Stat 09/09/20 16:49 Type and Screen Stat Acetaminophen LAB Stat 09/09/20 16:50 Drug Screen Urine Stat Ur Preg Test Stat 09/09/20 17:06 cefTRIAXone sodium [Rocephin] 1 gm .ROUTE .STK-MED ONE 09/09/20 17:34 Consult Rx EtOH Phenob Dosing 1 each MISCELLANE ONCE ONE 09/09/20 17:35 Metoclopramide HCl [Reglan] 10 mg IVPUSH ONCE ONE diphenhydrAMINE HCL [Benadryl] 25 mg IVPUSH ONCE ONE fentaNYL citrate/PF [Sublimaze] 25 mcg IVPUSH ONCE ONE 09/09/20 18:00 PHENobarbitaL sodium 218 mg IM ONCE ONE 09/09/20 18:08 CT abdomen pelvis w con Stat 09/09/20 18:15 0.9 % Sodium Chloride [Ns] 1,000 ml IVCONT 999 mls/hr 09/09/20 18:41 iohexoL 350 MG/ML [Omnipaque 350 MG/ML] 100 ml IV ONCE ONE 09/09/20 19:05 ~Lactic Acid-LAB USE ONLY Stat 09/09/20 19:45 0.9 % Sodium Chloride [Ns] 1,000 ml IVCONT 999 mls/hr 09/09/20 21:00 PHENobarbitaL sodium 164 mg IM Q3H 09/09/20 21:06 traZODone HCL [Desyrel] 50 mg PO BEDTIME MRX1 PRN 09/09/20 21:09 0.9 % Sodium Chloride [Ns] 500 ml IVCONT 999 mls/hr 09/09/20 21:19 Transfer Order Routine 09/09/20 21:25 EKG Documentation DIRECTED 09/09/20 21:26 Calcium Gluconate/NaCl,Iso-Osm [Calcium Gluconate] 1 gm in 50 ml IV ONCE 09/09/20 23:30 HIV Ab/Ag Exposure Source Stat Hepatitis Exposure Source Stat ~Lactic Acid-LAB USE ONLY Stat 09/10/20 ECG 12 lead EKG Stat 09/10/20 01:03 Promethazine HCL [Phenergan] 6.25 mg 0.9 % Sodium Chloride [Ns] 50 ml IV ONCE fentaNYL citrate/PF [Sublimaze] 25 mcg IVPUSH ONCE ONE 09/10/20 01:18 Ibuprofen [Motrin] 600 mg PO ONCE ONE 09/10/20 01:56 Promethazine HCL [Phenergan] 25 mg IV .STK-MED ONE 09/10/20 03:05 Magnesium Sulfate/H2O 2 gm in 50 ml IV ONCE 09/10/20 05:04 EKG Documentation DIRECTED 09/10/20 05:57 cefTRIAXone sodium [Rocephin] 1 gm .ROUTE .STK-MED ONE 09/10/20 06:00 levoFLOXacin/D5W [Levaquin] 500 mg in 100 ml IV Q24H 09/10/20 07:18 Glucose, Whole Blood Routine 09/10/20 08:16 Basic Metabolic Panel Routine Complete Blood Count Auto Diff Routine Lactate Dehydrogenase Stat 09/10/20 11:14 Glucose, Whole Blood Routine Laboratory Last Values WBC 8.9 X10*3/uL (4.8-10.8) 09/10/20 08:16 RBC 2.50 X10*6/uL (4.20-5.50) L 09/10/20 08:16 Hgb 8.3 g/dl (12.0-16.0) L 09/10/20 08:16 Hct 25.0 % (37-47) L 09/10/20 08:16 MCV 100.0 fL (80-98) H 09/10/20 08:16 MCH 33.2 pg (27.0-33.0) H 09/10/20 08:16 MCHC 33.2 g/dl (31.0-35.0) 09/10/20 08:16 RDW 25.2 % (11.0-16.0) H 09/10/20 08:16 Plt Count 128 X10*3/uL (160-400) L D 09/10/20 08:16 MPV 9.4 fL (9.4-12.3) 09/10/20 08:16 Immature Gran % (Auto) 0.6 % (0.0-0.4) H 09/10/20 08:16 Neut % (Auto) 71.3 % (45-73) 09/10/20 08:16 Lymph % (Auto) 18.4 % (20-40) L 09/10/20 08:16 [place] % (Auto) 8.4 % (2-11) 09/10/20 08:16 Eos % (Auto) 0.6 % (0-4) 09/10/20 08:16 Baso % (Auto) 0.7 % (0-2) 09/10/20 08:16 Lymph # (Auto) 1.6 X10*3/uL (1.2-4.9) 09/10/20 08:16 [place] # (Auto) 0.8 X10*3/uL (0.1-1.2) 09/10/20 08:16 Eos # (Auto) 0.1 X10*3/uL (0.0-0.4) 09/10/20 08:16 Baso # (Auto) 0.1 X10*3/uL (0.0-0.2) 09/10/20 08:16 Abs Immat Gran (auto) 0.05 X10*3/uL (0.00-0.03) H 09/10/20 08:16 Absolute Neuts (auto) 6.4 X10*3/uL (2.0-8.3) 09/10/20 08:16 Absolute Nucleated RBC 0.000 X10*3/uL (0.0-0.012) 09/10/20 08:16 Nucleated RBC % (auto) 0.0 /100WBC (0.0-0.2) 09/10/20 08:16 PT 16.7 SEC (10.8-13.0) H 09/09/20 16:48 INR 1.4 (0.9-1.1) H 09/09/20 16:48 APTT 32.9 SEC (24.1-38.0) 09/09/20 16:48 Sodium 138 mmol/L (135-145) 09/10/20 08:16 Potassium 2.8 mmol/l (3.3-5.1) L D 09/10/20 08:16 Chloride 108 mmol/L (96-108) 09/10/20 08:16 Carbon Dioxide 22 mmol/L (22-29) 09/10/20 08:16 Anion Gap 11 (12-20) L 09/10/20 08:16 BUN 4 mg/dL (9-16) L 09/10/20 08:16 Creatinine 0.53 mg/dL (0.5-1.4) 09/10/20 08:16 Estim Creat Clear Calc 128.6 09/10/20 08:16 Estimated GFR > 60 09/10/20 08:16 POC Glucose 70 mg/dL (60-115) 09/10/20 11:14 Random Glucose 64 mg/dL (60-115) 09/10/20 08:16 Lactic Acid 2.7 mmol/L (0.5-2.0) H* 09/09/20 16:48 Lactic Acid Fup @ 2Hr 2.3 mmol/L (0.5-2.0) H* 09/09/20 19:05 Lactic Acid Fup @ 4Hr 2.5 mmol/L (0.5-2.0) H* 09/09/20 23:30 Calcium 6.8 mg/dL (8.4-10.2) L 09/10/20 08:16 Magnesium Cancelled 09/09/20 16:48 Total Bilirubin 3.8 mg/dL (0.0-1.0) H 09/09/20 16:47 Direct Bilirubin 2.7 mg/dL (0.0-0.5) H 09/09/20 16:47 AST 177 U/L (5-31) H 09/09/20 16:47 ALT 24 U/L (0-31) 09/09/20 16:47 Alkaline Phosphatase 301 U/L (39-117) H 09/09/20 16:47 Lactate Dehydrogenase 171 U/L (122-220) 09/10/20 08:16 B-Natriuretic Peptide 91 pg/mL (<100) 09/09/20 16:48 Total Protein 6.5 g/dL (6.5-8.0) 09/09/20 16:47 Albumin 2.6 g/dL (3.5-5.0) L 09/09/20 16:47 Lipase Cancelled 09/09/20 16:49 Urine Color ORANGE 09/09/20 16:50 Urine Appearance TURBID 09/09/20 16:50 Urine pH 6.5 (5.0-8.0) 09/09/20 16:50 Ur Specific [place] 1.025 (1.005-1.025) 09/09/20 16:50 Urine Protein 1+ MG/DL (NEG-TRACE) H 09/09/20 16:50 Urine Glucose (UA) NEG MG/DL (NEG) 09/09/20 16:50 Urine Ketones 5 MG/DL (NEG) 09/09/20 16:50 Urine Blood NEG (NEG) 09/09/20 16:50 Urine Nitrite POS (NEG) H 09/09/20 16:50 Ur Leukocyte Esterase NEG (NEG) 09/09/20 16:50 Urine RBC 0 /HPF (0) 09/09/20 16:50 Urine WBC 0 /HPF (0-4) 09/09/20 16:50 Ur Squamous Epith Cells TRACE /LPF 09/09/20 16:50 [place] Biurate Crystals 2+ /LPF 09/09/20 16:50 Urine Bacteria 1+ /LPF 09/09/20 16:50 Urine Test NEGATIVE (NEGATIVE) 09/09/20 16:50 Urine Opiates Screen Not Detected (Not Detect) 09/09/20 16:50 Acetaminophen < 1 mcg/mL (<30) 09/09/20 16:49 Ur Barbiturates Screen POSITIVE (Not Detect) H 09/09/20 16:50 Ur Phencyclidine Scrn Not Detected (Not Detect) 09/09/20 16:50 Ur Amphetamines Screen Not Detected (Not Detect) 09/09/20 16:50 U Benzodiazepines Scrn Not Detected (Not Detect) 09/09/20 16:50 Urine Cocaine Screen Not Detected (Not Detect) 09/09/20 16:50 U Marijuana (THC) Screen POSITIVE (Not Detect) H 09/09/20 16:50 Ethyl Alcohol 282 mg/dL 09/09/20 16:48 Hep Bs Antigen Negative (Negative) 09/09/20 23:30 Hep Bs Antibody REACTIVE (Nonreactive) 09/09/20 23:30 Hep B Core Total Ab Nonreactive (Nonreactive) 09/09/20 23:30 Hepatitis C Antibody NonReactive (Nonreactive) 09/09/20 23:30 HIV 1&2 Ab/P24 Ag 4thGn Nonreactive (Nonreactive) 09/09/20 23:30 Blood Type O Negative 09/09/20 16:49 Antibody Screen NEGATIVE 09/09/20 16:49 Preliminary micro results at discharge 09/09/20 17:51 Urine Culture - Preliminary Urine clean catch - Clean Catch Midstream No growth to date. Discharge Plan Discharge Patient Disposition: Left Against Medical Advice Referrals: Wilder Hernandez MD [Primary Care Provider] - 1 Week (09/22/2020 3:00pm with Dr. Hernandez) Discharge Medications: No Action trazodone 50 mg tablet 50 mg PO BEDTIME PRN (Reason: insomnia) 30 Days Qty: 30 RF: 0 pantoprazole 40 mg tablet,delayed release (DR/EC) 40 mg PO DAILY Qty: 1 RF: 3 midodrine 5 mg tablet 1 tab PO TID RF: 0 mirtazapine 15 mg tablet,disintegrating 1 tab sublingual BEDTIME RF: 0 Discharge Orders: Discharge Order (Routine); Ordered 09/10/20 Ordered By: Mason Ellsworth Discharge Date/Time: 09/10/20 12:05 Health Concerns: active alcohol abuse Plan of Treatment: left against medical advice
--- NOTE | 2020-09-10 12:24 | MHC.CM.PN ---
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 At baseline, pt does not need a cane of walker but reports sometimes needing an assistive device. Pt uses her mothers DME when this happens. Pt has both a PCP and HCP on file. IMM delivered Current DC plan is home with resumption of services pt can arrange transport
--- NOTE | 2020-09-10 12:26 | PC.NURSE ---
The NA came to tell me that 368 wanted to sign out AMA. Her nurse was at lunch, I called Dr. Ellsworth and let her know, I then went into speak with the patient and told her the risks of leaving without treatment. She stated that she understood. I then removed her IV and gave her the AMA papers to sign. Domenica Mendez the road supervisor was made aware. Pt was alert and oriented and walked out by herself.
--- NOTE | 2020-09-10 12:49 | PC.NURSE ---
PATIENT LEFT AMA, FEELING SHAKEY, DIDNT WANT TO WAIT FOR GI CONSULT, NOTIFIED AND IV ADAPTER REMOVED
== END 2020-09-10 12:05 | disposition left against medical advice (07) | DRG 378 ==
LOC: HO.ED 19:49 → HO.S3 21:36
PROVIDERS: Internal Medicine; Physician Assistant; Admitting Provider Internal Medicine; Emergency Provider Emergency Medicine; PCP Family Medicine; Visit Provider Internal Medicine
DX: K29.21 Alcoholic gastritis with bleeding (principal); F10.239 Alcohol dependence with withdrawal, unspecified; G40.909 Epilepsy, unspecified, not intractable, without status epilepticus; F41.8 Other specified anxiety disorders; K70.31 Alcoholic cirrhosis of liver with ascites; I95.1 Orthostatic hypotension; Z98.84 Bariatric surgery status; F17.210 Nicotine dependence, cigarettes, uncomplicated; Z71.6 Tobacco abuse counseling; Z88.5 Allergy status to narcotic agent; Z79.899 Other long term (current) drug therapy
CPT/HCPCS: 36415; 74177; 76705; 80048; 80076; 80307; 80320; 81001; 81003; 81025; 82947; 83605; 83615; 83690; 83735; 83880; 85025; 85610; 85730; 86803; 86850; 86900; 86901; 87040; 87086; 93005; 96361; 96365; 96372; 96375; 96376; 99284; 99291; G0480; J0610; J0696; J1200; J2060; J2405; J2560; J2765; J3010; J3475; Q9967

== ENCOUNTER 2020-09-12 16:54 | Emergency (ER) | payer MEDICARE, MEDICAID, SELFPAY ==
[2020-09-12 17:06] VITALS: PULSE 99; RESP 16; TEMP 37.5; O2SAT 98; BMI 22.6
--- NOTE | 2020-09-12 17:41 | PC.NURSE ---
PT WAS YELLING AT PCT TELLING HER XRAY NEEDED TO COME GET HER NOW. PCT TOLD PT THAT THEY WERE ORDER AND THAT THEY WILL BE COMING RIGHT TO THE ROOM TO GET HER. PT WAS LIKE IF THEY DONT GET ME NOW I AM GOING TO LEAVE. NURSE WENT TO CHECK PT AND SHE WAS GONE OUT OF ROOM AND CHECKED WAITING ROOM AND PT WAS ALREADY GONE.
== END 2020-09-12 17:59 | disposition left against medical advice (07) ==
PROVIDERS: Emergency Provider Emergency Medicine; PCP Family Medicine
DX: Z04.1 Encounter for examination and observation following transport accident (principal)
CPT/HCPCS: 99283; 99284

== ENCOUNTER 2020-09-24 13:53 | Emergency (ER) | payer MEDICARE, MEDICAID, SELFPAY ==
[2020-09-24 14:45] VITALS: BP 108/63; PULSE 93; RESP 18; TEMP 37; O2SAT 100; BMI 22.4
--- NOTE | 2020-09-24 14:56 | XR_ITS ---
EXAMINATION: XR CHEST CLINICAL INFORMATION: Chest pain. COMPARISON: 08/13/2020 chest radiograph. TECHNIQUE: Frontal view of the chest was obtained. FINDINGS: Low lung volumes limit evaluation. Mild linear markings are seen at the left lung base. The left upper lung field and right lung are clear. The heart and mediastinal structures are unremarkable. XR/XR chest 1V IMPRESSION: Mild linear markings at the left lung base are nonspecific, but were not seen previously and could represent atelectasis or small infiltrate. A lateral view would be helpful in this patient.
--- NOTE | 2020-09-24 14:56 | ECG_ITS ---
Test Reason : ABD PAIN Blood Pressure : / mmHG Vent. Rate : 087 BPM Atrial Rate : 087 BPM P-R Int : 144 ms QRS Dur : 096 ms QT Int : 434 ms P-R-T Axes : 029 039 026 degrees QTc Int : 522 ms Normal sinus rhythm Nonspecific T wave abnormality Borderline ECG When compared with ECG of 10-SEP-2020 05:22, No significant change was found Referred By: Ian Joe Electronically Signed By:MOI GARCIA MD
[2020-09-24 15:23] LABS: Basophils Percent Auto 0.4 % (0-2); Eosinophils Percent Auto 0.2 % (0-4); Hematocrit 25.6 % (37-47); Hemoglobin 8.3 g/dl (12.0-16.0); Imm Gran Abs Auto 0.11 X10*3/uL (0.00-0.03); Imm Gran Pct Auto 1.2 % (0.0-0.4); Lymphocytes Absolute Auto 1.3 X10*3/uL (1.2-4.9); Lymphocytes Percent Auto 14.4 % (20-40); MANUAL DIFF FLAG NO; Mean Corpuscular HGB Conc 32.4 g/dl (31.0-35.0); Mean Corpuscular Hemoglobin 35.5 pg (27.0-33.0); Mean Corpuscular Volume 109.4 fL (80-98); Mean Platelet Volume 9.6 fL (9.4-12.3); Monocytes Absolute Auto 1.1 X10*3/uL (0.1-1.2); Monocytes Percent Auto 11.3 % (2-11); Neutrophils Absolute Auto 6.8 X10*3/uL (2.0-8.3); Neutrophils Percent Auto 72.5 % (45-73); Platelet Count 178 X10*3/uL (160-400); Red Blood Count 2.34 X10*6/uL (4.20-5.50); Red Cell Distribution Width 20.2 % (11.0-16.0); White Blood Count 9.3 X10*3/uL (4.8-10.8)
[2020-09-24 15:26] LABS: INTERNATIONAL NORM RATIO 1.8 (0.9-1.1); Prothrombin Time 20.9 SEC (10.8-13.0)
[2020-09-24 15:29] LABS: Partial Thromboplastin Time 39.9 SEC (24.1-38.0)
[2020-09-24] MEDS: HYDROmorphone HCl 0.5 MG/0.5 ML SYRINGE IVPUSH ×2 (15:37→17:05)
[2020-09-24] MEDS: ondansetron HCL 4 MG/2 ML VIAL IVPUSH (15:37)
[2020-09-24] MEDS: 0.9 % Sodium Chloride 1,000 ML 1000 ML IV (15:37)
[2020-09-24] MEDS: LORazepam 2 MG/ML VIAL 0.5 MG IVPUSH (15:38)
[2020-09-24 15:40] LABS: Ammonia 74 umol/L (13-55)
[2020-09-24 15:42] LABS: Ethanol 80 mg/dL
[2020-09-24 15:49] LABS: Alanine Aminotransferase 19 U/L (0-31); Albumin Level 2.4 g/dL (3.5-5.0); Alkaline Phosphatase 246 U/L (39-117); Anion Gap 13 (12-20); Aspartate Amino Transferase 102 U/L (5-31); Bilirubin Total 10.1 mg/dL (0.0-1.0); Blood Urea Nitrogen 4 mg/dL (9-16); Calcium 7.5 mg/dL (8.4-10.2); Carbon Dioxide 23 mmol/L (22-29); Chloride 102 mmol/L (96-108); Creatinine Clr Calc Pharmacy 130.5; Estimated Glomerular Filt Rate > 60; Glucose Random 148 mg/dL (60-115); Magnesium 1.9 mg/dL (1.6-2.6); Potassium 2.9 mmol/l (3.3-5.1); Sodium 135 mmol/L (135-145); Total Protein 5.9 g/dL (6.5-8.0)
[2020-09-24 16:21] VITALS: BP 104/63; PULSE 91; RESP 18; TEMP 36.8; O2SAT 96
--- NOTE | 2020-09-24 16:31 | ED.GENADULT ---
HPI - General Adult General Chief complaint: General Medical Stated complaint: abd pain Time Seen by Provider: 09/24/20 14:48 Source: patient Mode of arrival: ambulatory Limitations: no limitations History of Present Illness HPI narrative: This is a unfortunate 30-year-old female who has extensive history as noted below including recurrent history of abdominal ascites in the setting of alcoholic liver disease, active alcohol abuse last drink was this morning, alcoholic hepatitis, GI bleed, asthma, colitis, abdominal ascites requiring paracentesis, alcohol withdrawal who presents ambulatory via triage with complaint of abdominal pain. States she feels like her abdomen is compressed and is very to be drained . She denies any nausea vomiting or diarrhea. Denies any fever. Again states last alcoholic drink was roughly 10-12 hours ago prior to arrival. Onset (ago): day(s) Location: abdomen Radiation: non-radiation Severity: moderate Quality: aching Pain Consistency: constant Associated symptoms: denies other symptoms Treatments prior to arrival: none Related Data Home Medications Medication Instructions Recorded Confirmed mirtazapine 1 tab SUBLINGUAL BEDTIME 09/09/20 09/09/20 Previous Rx's Medication Instructions Recorded pantoprazole 40 mg tablet,delayed 40 mg PO DAILY #1 tab 08/17/20 release trazodone 50 mg tablet 50 mg PO BEDTIME #30 tab 09/12/20 midodrine 5 mg tablet 5 mg PO TID #90 tab 09/15/20 Allergies Allergy/AdvReac Type Severity Reaction Status Date / Time morphine [MORPHINE] Allergy Mild HIVES Verified 09/12/20 17:13 banana [BANANA] AdvReac Severe DIFFICULTY Verified 09/12/20 17:13 BREATHING morphine and related Allergy Unknown Hives Uncoded 09/12/20 17:13 Review of Systems Review of Systems: Constitutional: No Weight loss, No Fever, No Chills, No Night Sweats, No Fatigue, No Malaise ENT/Mouth: No Hearing loss, No Ear Pain, No Nasal Congestion, No Sinus Pain, No Hoarseness, No sore throat, No Rhinorrhea, No Swallowing Difficulty Eyes: No Eye Pain, No Swelling, No Redness, No Foreign Body, No Discharge, No Vision Changes Cardiovascular: No Chest Pain, No SOB, No Dyspnea on Exertion, No Orthopnea, No Edema, No Palpitations Respiratory: No Cough, No Sputum, No Wheezing, No Smoke Exposure, No Dyspnea Gastrointestinal: + Nausea, No Vomiting, No Diarrhea, No Constipation, + abdominal Pain, No Hematochezia, No Melena Genitourinary: no irregular bleeding, No Dysuria, No Urinary Frequency, No Hematuria, No Urinary Incontinence, No Urgency, No Flank Pain, No Urinary Flow Changes, No Hesitancy Musculoskeletal: No joint pain, No Myalgias, No Joint Swelling Skin: No Skin Lesions, No rash Neuro: No Weakness, No Numbness, No Paresthesias, No Loss of Consciousness, No Dizziness, No Headache Psych: No Anxiety/Panic, No Depression, No SI/HI/AH/VH, No Social Issues Heme/Lymph: No Bruising, No Bleeding,No Lymphadenopathy Endocrine: No Polyuria, No Polydipsia, No Temperature Intolerance Yes all other systems are reviewed and are negative [facility] Past Medical History Attestation statement: The following information was validated with the patient. Medical History Alcoholic cirrhosis of liver Asthma CHF (congestive heart failure) Chiari malformation CVA (cerebral vascular accident) Depression GI bleed Hepatitis C NSVT (nonsustained ventricular tachycardia) Peptic ulcer disease Seizure disorder Seizures Surgical History Gastric bypass status for obesity Hx of cholecystectomy Social History Social History Household Members: Family Housing: Apartment Alcohol intake: current Alcohol intake frequency: 3 or more drinks per day Alcohol type: hard liquor Smoking Status: Current every day smoker Tobacco Type: Cigarette Cigarettes Per Day: 0.5 Years Smoked: 12 Smoked in Last 30 Days: Yes Second Hand Smoke Exposure: Yes Use of substances other than those prescribed or required for medical reasons: No Advance Directives: No Advance Directives Information Provided: Yes service: No Current occupational status: unemployed Physical Exam Vital Signs: Vital Signs: Last Vital Signs Temp 98.3 F 09/24/20 16:21 Pulse 96 09/24/20 16:58 Resp 20 09/24/20 16:58 BP 112/67 09/24/20 16:58 Pulse Ox 100 09/24/20 16:58 Body Mass Index 22.4 Const: General: cooperative and ill appearing; No acute distress Nutritional Appearance: malnourished Orientation/consciousness: patient oriented x3 HENMT: Head: Yes normal to inspection Ears: hearing grossly normal bilaterally Eyes: Other: Icterus General: appearance normal, both eyes and all related structures Visual Mauricio: normal visual mauricio by confrontation Neck: Neck: Yes normal visual inspection and No tender Thyroid: Thyroid normal Chest: Chest palpation & inspection: normal inspection of the chest Resp: Effort & Inspection: normal respiratory effort Cardio: Jugular venous distension: no JVD Heart sounds: S1 normal heart sound present and S2 normal heart sound present GI: Inspection: Yes normal to inspection Percussion: Yes tympanic to percussion and Yes Other ( distended abdomen) Auscultation: normal bowel sounds : General: Yes no CVA tenderness Back/Spine/Pelvis: Back: no CVA tenderness Skin: General skin exam: no rashes or lesions noted Neuro: General: patient oriented x3 Extrem: General: Yes normal to inspection Course Course Course Narrative: labs shows worsening liver function tests in the setting of alcoholic liver disease/ hepatitis who continues to drink. Abdominal exam slightly distended abdomen but no evidence of peritonitis /SBP. Refused paracentesis here in the ER, case discussed with GI Dr. Kwong recommend for IR paracentesis. Spoke to IR they are gone at this time but they will be able to do it tomorrow morning. Consultations Consultation #1: Case discussed with GI Consultation #2: case discussed with hospitalist for admission Medical Decision Making Lab Data Result diagrams: 09/24/20 15:14 09/24/20 15:14 Labs: Lab Results 09/24/20 09/24/20 09/24/20 Range/Units 15:14 15:14 15:14 WBC 9.3 (4.8-10.8) X10*3/uL RBC 2.34 L (4.20-5.50) X10*6/uL Hgb 8.3 L (12.0-16.0) g/dl Hct 25.6 L (37-47) % MCV 109.4 H (80-98) fL MCH 35.5 H (27.0-33.0) pg MCHC 32.4 (31.0-35.0) g/dl RDW 20.2 H (11.0-16.0) % Plt Count 178 D (160-400) X10*3/uL MPV 9.6 (9.4-12.3) fL Immature Gran % (Auto) 1.2 H (0.0-0.4) % Neut % (Auto) 72.5 (45-73) % Lymph % (Auto) 14.4 L (20-40) % [place] % (Auto) 11.3 H (2-11) % Eos % (Auto) 0.2 (0-4) % Baso % (Auto) 0.4 (0-2) % Lymph # (Auto) 1.3 (1.2-4.9) X10*3/uL [place] # (Auto) 1.1 (0.1-1.2) X10*3/uL Eos # (Auto) 0.0 (0.0-0.4) X10*3/uL Baso # (Auto) 0.0 (0.0-0.2) X10*3/uL Abs Immat Gran (auto) 0.11 H (0.00-0.03) X10*3/uL Absolute Neuts (auto) 6.8 (2.0-8.3) X10*3/uL Absolute Nucleated RBC 0.000 (0.0-0.012) X10*3/uL Nucleated RBC % (auto) 0.0 (0.0-0.2) /100WBC PT (10.8-13.0) SEC INR (0.9-1.1) APTT (24.1-38.0) SEC Sodium 135 (135-145) mmol/L Potassium 2.9 L (3.3-5.1) mmol/l Chloride 102 (96-108) mmol/L Carbon Dioxide 23 (22-29) mmol/L Anion Gap 13 (12-20) BUN 4 L (9-16) mg/dL Creatinine 0.59 (0.5-1.4) mg/dL Estim Creat Clear Calc 130.5 Estimated GFR > 60 Random Glucose 148 H D (60-115) mg/dL Calcium 7.5 L D (8.4-10.2) mg/dL Magnesium 1.9 (1.6-2.6) mg/dL Total Bilirubin 10.1 H (0.0-1.0) mg/dL AST 102 H (5-31) U/L ALT 19 (0-31) U/L Alkaline Phosphatase 246 H (39-117) U/L Ammonia 74 H (13-55) umol/L Total Protein 5.9 L (6.5-8.0) g/dL Albumin 2.4 L (3.5-5.0) g/dL Urine Color Urine Appearance Urine pH (5.0-8.0) Ur Specific [place] (1.005-1.025) Urine Protein (NEG-TRACE) MG/DL Urine Glucose (UA) (NEG) MG/DL Urine Ketones (NEG) MG/DL Urine Blood (NEG) Urine Nitrite (NEG) Ur Leukocyte Esterase (NEG) Urine Test (NEGATIVE) Ethyl Alcohol mg/dL 09/24/20 09/24/20 09/24/20 Range/Units 15:14 15:14 17:25 WBC (4.8-10.8) X10*3/uL RBC (4.20-5.50) X10*6/uL Hgb (12.0-16.0) g/dl Hct (37-47) % MCV (80-98) fL MCH (27.0-33.0) pg MCHC (31.0-35.0) g/dl RDW (11.0-16.0) % Plt Count (160-400) X10*3/uL MPV (9.4-12.3) fL Immature Gran % (Auto) (0.0-0.4) % Neut % (Auto) (45-73) % Lymph % (Auto) (20-40) % [place] % (Auto) (2-11) % Eos % (Auto) (0-4) % Baso % (Auto) (0-2) % Lymph # (Auto) (1.2-4.9) X10*3/uL [place] # (Auto) (0.1-1.2) X10*3/uL Eos # (Auto) (0.0-0.4) X10*3/uL Baso # (Auto) (0.0-0.2) X10*3/uL Abs Immat Gran (auto) (0.00-0.03) X10*3/uL Absolute Neuts (auto) (2.0-8.3) X10*3/uL Absolute Nucleated RBC (0.0-0.012) X10*3/uL Nucleated RBC % (auto) (0.0-0.2) /100WBC PT 20.9 H D (10.8-13.0) SEC INR 1.8 H (0.9-1.1) APTT 39.9 H D (24.1-38.0) SEC Sodium (135-145) mmol/L Potassium (3.3-5.1) mmol/l Chloride (96-108) mmol/L Carbon Dioxide (22-29) mmol/L Anion Gap (12-20) BUN (9-16) mg/dL Creatinine (0.5-1.4) mg/dL Estim Creat Clear Calc Estimated GFR Random Glucose (60-115) mg/dL Calcium (8.4-10.2) mg/dL Magnesium (1.6-2.6) mg/dL Total Bilirubin (0.0-1.0) mg/dL AST (5-31) U/L ALT (0-31) U/L Alkaline Phosphatase (39-117) U/L Ammonia (13-55) umol/L Total Protein (6.5-8.0) g/dL Albumin (3.5-5.0) g/dL Urine Color PATO Urine Appearance HAZY Urine pH 6.5 (5.0-8.0) Ur Specific [place] 1.020 (1.005-1.025) Urine Protein 1+ H (NEG-TRACE) MG/DL Urine Glucose (UA) 100 H (NEG) MG/DL Urine Ketones 5 (NEG) MG/DL Urine Blood NEG (NEG) Urine Nitrite POS H (NEG) Ur Leukocyte Esterase TRACE H (NEG) Urine Test NEGATIVE (NEGATIVE) Ethyl Alcohol 80 mg/dL Discharge Plan Discharge Clinical Impression: Acute alcoholic hepatitis, Ascites, Orthostatic hypotension, Acute hypokalemia Patient Disposition: Admitted As Inpatient Prescriptions: No Action pantoprazole 40 mg tablet,delayed release (DR/EC) 40 mg PO DAILY Qty: 1 RF: 3 trazodone 50 mg tablet 50 mg PO BEDTIME Qty: 30 RF: 0 midodrine 5 mg tablet 5 mg PO TID Qty: 90 RF: 1 mirtazapine 15 mg tablet,disintegrating 1 tab sublingual BEDTIME RF: 0
[2020-09-24 16:58] VITALS: BP 112/67; PULSE 96; RESP 20; O2SAT 100
[2020-09-24] MEDS: Lactulose 20 GM/30 ML SOLUTION PO (17:05)
[2020-09-24] MEDS: Potassium Chloride/H20 10 MEQ/100 ML PIGGYBACK 100 MEQ IV (17:05)
[2020-09-24 17:40] LABS: Glucose Urine UA 100 MG/DL (NEG); Leukocyte Esterase Urine TRACE (NEG); Nitrite Urine POS (NEG); PH 6.5 (5.0-8.0); Urine Blood NEG (NEG); Urine Ketones 5 MG/DL (NEG); Urine Protein 1+ MG/DL (NEG-TRACE)
[2020-09-24 17:41] LABS: Appearance Urine HAZY; Color Urine AMBER; UPreg QC Valid YES; Urine Pregnancy NEGATIVE (NEGATIVE)
[2020-09-24 17:51] LABS: Bacteria Urine 1+ /LPF; RBC Urine 0 /HPF (0); Squamous Epithelial Cell Urine 2+ /LPF; WBC Urine 0-2 /HPF (0-4)
[2020-09-24 18:03] LABS: Amphetamine Screen Urine Not Detected (Not Detect); Barbiturates, Urine POSITIVE (Not Detect); Benzodiazepines Screen Urine Not Detected (Not Detect); Cannabinoid Screen Urine POSITIVE (Not Detect); Cocaine Screen Urine Not Detected (Not Detect); Opiate Screen Urine POSITIVE (Not Detect); Phencyclidine Screen Urine Not Detected (Not Detect)
[2020-09-24] MEDS: Potassium Chloride/H20 10 MEQ/100 ML PIGGYBACK IV (18:33)
--- NOTE | 2020-09-24 19:38 | PC.NURSE ---
PATIENT REQUESTED TO LEAVE AGAINST MEDICAL ADVICE. PATIENT'S STATED REASON FOR LEAVING AMA IS I ORDERED FOOD FROM A RESTAURANT AND I WANT THAT. I DON'T WANT YOUR [facility] FOOD. THIS IS BULLSHIT. TAKE ALL THIS SHIT OFF (pointed to [employer] and IV access). IV ACCESS AND REMARKETING REP LEADS REMOVED. PT REFUSED TO STAY FOR AMA PAPERWORK, REFUSED TO SIGN. LEFT AMA, AMBULATED WITH STEADY GAIT. VASU (PROVIDER) AWARE.
== END 2020-09-25 15:14 | disposition left against medical advice (07) ==
PROVIDERS: Nurse Practitioner Primary Care; Emergency Provider Emergency Medicine; PCP Family Medicine
DX: K70.11 Alcoholic hepatitis with ascites (principal); I95.1 Orthostatic hypotension; E87.6 Hypokalemia; F17.210 Nicotine dependence, cigarettes, uncomplicated; Z71.6 Tobacco abuse counseling; Z79.899 Other long term (current) drug therapy
CPT/HCPCS: 36415; 71045; 80053; 80307; 80320; 81001; 81025; 82140; 83735; 85025; 85610; 85730; 87086; 93005; 96361; 96365; 96375; 96376; 99284; J1170; J2060; J2405

== ENCOUNTER 2020-10-02 16:08 | Inpatient (IN) | payer MEDICARE, MEDICAID, SELFPAY ==
[2020-10-02 16:22] VITALS: BP 116/66; PULSE 98; RESP 28; TEMP 37; O2SAT 100
--- NOTE | 2020-10-02 17:06 | ED.ABDPAIN ---
HPI - Abdominal Pain General Chief Complaint: Abdominal Pain Stated Complaint: BLOATED Time Seen by Provider: 10/02/20 17:15 Source: patient Mode of arrival: ambulatory Limitations: no limitations History of Present Illness HPI narrative: 30-year-old female with significant medical history of alcohol abuse, ascites, alcoholic hepatitis, abdominal ascites requiring paracentesis, history of GI bleed, asthma, colitis, presents with abdominal bloating, scleral jaundice, abdominal pain, and 1 episode of coffee-ground emesis. She reports drinking several nips this morning, feels like she is going through alcohol withdrawal at this time and notes to have edema to bilateral lower extremities and auditory and visual hallucinations. she denies chest pain or pressure, palpitations, headache, fevers or chills. MD elicited complaint: abdominal pain Pertinent past history: gastrointestinal bleeding Onset (ago): day(s) Pain Consistency: constant Location: diffuse Severity: severe Pain scale (0-10): 10 Quality: aching and fullness Exacerbating factors: movement Relieving factors: nothing Associated symptoms: hematemesis Related Data Home Medications Medication Instructions Recorded Confirmed mirtazapine 1 tab SUBLINGUAL BEDTIME 09/09/20 10/02/20 ferrous sulfate 5 ml PO DAILY 10/02/20 10/02/20 omeprazole 1 cap PO BID 10/02/20 10/02/20 Previous Rx's Medication Instructions Recorded pantoprazole 40 mg tablet,delayed 40 mg PO DAILY #1 tab 08/17/20 release trazodone 50 mg tablet 50 mg PO BEDTIME #30 tab 09/12/20 midodrine 5 mg tablet 5 mg PO TID #90 tab 09/15/20 Allergies Allergy/AdvReac Type Severity Reaction Status Date / Time morphine [MORPHINE] Allergy Mild HIVES Verified 10/02/20 16:21 banana [BANANA] AdvReac Severe DIFFICULTY Verified 10/02/20 16:21 BREATHING morphine and related Allergy Unknown Hives Uncoded 09/12/20 17:13 Review of Systems Review of Systems Constitutional: No Weight loss, No Fever, No Chills, No Night Sweats, Positive Fatigue, positive Malaise ENT/Mouth: No Hearing loss, No Ear Pain, No Nasal Congestion, No Sinus Pain, No Hoarseness, No sore throat, No Rhinorrhea, No Swallowing Difficulty Eyes: No Eye Pain, positive scleral icterus bilaterally, No Swelling, No Redness, No Foreign Body, No Discharge, No Vision Changes Cardiovascular: No Chest Pain, No SOB, No Dyspnea on Exertion, No Orthopnea, positive bilateral lower extremity pitting Edema, No Palpitations Respiratory: No Cough, No Sputum, No Wheezing, No Smoke Exposure, No Dyspnea Gastrointestinal: Positive Nausea, Positive Vomiting, positive Diarrhea, positive abdominal Pain, No Hematochezia, No Melena Genitourinary: no irregular bleeding, No Dysuria, No Urinary Frequency, No Hematuria, No Urinary Incontinence, No Urgency, No Flank Pain, No Urinary Flow Changes, No Hesitancy Musculoskeletal: No joint pain, No Myalgias, No Joint Swelling Skin: No Skin Lesions, No rash Neuro: No Weakness, No Numbness, No Paresthesias, No Loss of Consciousness, No Dizziness, No Headache Psych: No Anxiety/Panic, No Depression, No SI/HI/AH/VH, No Social Issues Heme/Lymph: No Bruising, No Bleeding,No Lymphadenopathy Endocrine: No Polyuria, No Polydipsia, No Temperature Intolerance Yes all other systems are reviewed and are negative Physical Exam Vital Signs: Vital Signs: Last Vital Signs Temp 98.3 F 10/02/20 20:18 Pulse 107 H 10/02/20 22:22 Resp 17 10/02/20 22:22 BP 115/57 L 10/02/20 22:22 Pulse Ox 98 10/02/20 22:22 Body Mass Index 0.0 Appearance: Alert. Oriented X1. moderate distress. Eyes: Pupils equal, round and reactive to light. bilateral scleral icterus ENT: Pharynx normal. Neck: Normal inspection. Neck supple. CVS: Normal heart rate and rhythm. Pulses normal. Respiratory: No respiratory distress. Breath sounds normal. Abdomen: hard, distended consistent with history of ascites, tender to palpation to all quadrants Skin: Skin warm and dry. Normal skin color. Normal skin turgor. Extremities: +4 bilateral lower pitting edema Neuro: No motor deficit. No sensory deficit. Procedures Paracentesis Time Out Performed: Yes Local Anesthetic: lidocaine 2% Amount of anesthesia used (mL): 10 Fluid: clear ( 2 L of fluid) and sent to lab for analysis Post Procedure Exam: awake, alert, normal BP, normal HR and normal SpO2 Patient Tolerated Procedure: well and no complications Course Course Course Narrative: 30-year-old female with significant history of alcoholism, alcohol-induced hepatitis, ascites, metabolic encephalopathy, colitis, presents with abdominal distention, bilateral scleral icterus, bilateral lower extremity pitting edema, abdominal pain, auditory visual hallucinations, alcohol withdrawal, and tachypnea. Is highly likely the tachypnea abdominal pain over site I do expect this person's lab values to be acidotic secondary to EtOH, while patients vital signs and presentation meet sepsis criteria Given her significant history of alcoholism, we will start fluid resuscitation with the banana bag. Fluid resuscitation With normal saline for this patient will be managed as labs return. CT scan of abdomen shows colitis, we will start Levaquin and Flagyl, urinalysis positive for UTI which is covered by Levaquin. Significant ascites noted to peritoneal cavity, we will perform paracentesis in the emergency department to relieve some of the pressure of the abdomen. Dr. Townsend at bedside during the entire procedure while this [employer] performed paracentesis Under ultrasound guidance. 2 L of clear yellow peritoneal fluid drained, respiratory rate returned to normal, shortly after. Patient tolerated procedure well, procedure completed With aseptic technique. lab values indicate acidosis which is a combination of alcoholism as well as possible sepsis secondary to colitis. Ammonia level elevated at 124, given lactulose 30 mL, hypokalemic at 2.7, we will resuscitate potassium p.o. as she does have some multiple lines with antibiotics, banana bag and fluids infusing. She has required several doses of Dilaudid as she is allergic to morphine, for pain management. discussion with hospitalist regarding admission for metabolic encephalopathy, alcohol withdrawal, Colitis, UTI and sepsis. Consultations Consultation #1: Ric Granados Time: 22:02 MDM - Abdominal Pain Differential Diagnosis Differential diagnosis: Likely abdominal pain, bowel perforation, calculus of kidney, diverticulitis, gastroenteritis, gastritis, mesenteric ischemia, pancreatitis, peptic ulcer disease and renal colic Differential diagnosis narrative:: Ascites, hepatitis alcohol induced, colitis, SBP, metabolic encephalopathy, alcohol withdrawal Medical Records Attestation: I reviewed the patient's medical records. Lab Data Attestation: I reviewed the patient's lab results. Result diagrams: 10/02/20 18:45 10/02/20 18:45 Labs: Lab Results 10/02/20 10/02/20 10/02/20 Range/Units 18:45 18:45 18:45 WBC 17.7 H (4.8-10.8) X10*3/uL RBC 2.15 L (4.20-5.50) X10*6/uL Hgb 7.9 L (12.0-16.0) g/dl Hct 24.3 L (37-47) % MCV 113.0 H (80-98) fL MCH 36.7 H (27.0-33.0) pg MCHC 32.5 (31.0-35.0) g/dl RDW 20.8 H (11.0-16.0) % Plt Count 156 L (160-400) X10*3/uL MPV 9.6 (9.4-12.3) fL Immature Gran % (Auto) 0.6 H (0.0-0.4) % Neut % (Auto) 81.2 H (45-73) % Lymph % (Auto) 11.6 L (20-40) % [place] % (Auto) 5.7 (2-11) % Eos % (Auto) 0.4 (0-4) % Baso % (Auto) 0.5 (0-2) % Lymph # (Auto) 2.0 (1.2-4.9) X10*3/uL [place] # (Auto) 1.0 (0.1-1.2) X10*3/uL Eos # (Auto) 0.1 (0.0-0.4) X10*3/uL Baso # (Auto) 0.1 (0.0-0.2) X10*3/uL Abs Immat Gran (auto) 0.10 H (0.00-0.03) X10*3/uL Absolute Neuts (auto) 14.4 H (2.0-8.3) X10*3/uL Absolute Nucleated RBC 0.000 (0.0-0.012) X10*3/uL Nucleated RBC % (auto) 0.0 (0.0-0.2) /100WBC PT 20.8 H (10.8-13.0) SEC INR 1.7 H (0.9-1.1) APTT 41.3 H (24.1-38.0) SEC Sodium 135 (135-145) mmol/L Potassium 2.7 L (3.3-5.1) mmol/l Chloride 103 (96-108) mmol/L Carbon Dioxide 18 L (22-29) mmol/L Anion Gap 17 (12-20) BUN 5 L (9-16) mg/dL Creatinine 0.69 (0.5-1.4) mg/dL Estim Creat Clear Calc TNP Estimated GFR > 60 Random Glucose 146 H (60-115) mg/dL Lactic Acid (0.5-2.0) mmol/L Calcium 7.4 L (8.4-10.2) mg/dL Magnesium 2.0 (1.6-2.6) mg/dL Total Bilirubin 12.1 H (0.0-1.0) mg/dL Direct Bilirubin 9.0 H (0.0-0.5) mg/dL AST 100 H (5-31) U/L ALT 16 (0-31) U/L Alkaline Phosphatase 241 H (39-117) U/L Ammonia (13-55) umol/L Troponin I High Sens (<3.5-17.0) ng/L B-Natriuretic Peptide (<100) pg/mL Total Protein 6.0 L (6.5-8.0) g/dL Albumin 2.2 L (3.5-5.0) g/dL Lipase 20 (8-78) U/L Urine Color Urine Appearance Urine pH (5.0-8.0) Ur Specific [place] (1.005-1.025) Urine Protein (NEG-TRACE) MG/DL Urine Glucose (UA) (NEG) MG/DL Urine Ketones (NEG) MG/DL Urine Blood (NEG) Urine Nitrite (NEG) Ur Leukocyte Esterase (NEG) Urine RBC (0) /HPF Urine WBC (0-4) /HPF Ur Squamous Epith Cells /LPF Urine Bacteria /LPF Peritoneal WBC X10*3/uL Peritoneal RBC X10*6/uL Periton Neutrophils % Periton Lymphocytes % Peritoneal Monocytes % Peritoneal Basophils % Peritoneal Other Cells % Ethyl Alcohol mg/dL 10/02/20 10/02/20 10/02/20 Range/Units 18:45 18:45 18:45 WBC (4.8-10.8) X10*3/uL RBC (4.20-5.50) X10*6/uL Hgb (12.0-16.0) g/dl Hct (37-47) % MCV (80-98) fL MCH (27.0-33.0) pg MCHC (31.0-35.0) g/dl RDW (11.0-16.0) % Plt Count (160-400) X10*3/uL MPV (9.4-12.3) fL Immature Gran % (Auto) (0.0-0.4) % Neut % (Auto) (45-73) % Lymph % (Auto) (20-40) % [place] % (Auto) (2-11) % Eos % (Auto) (0-4) % Baso % (Auto) (0-2) % Lymph # (Auto) (1.2-4.9) X10*3/uL [place] # (Auto) (0.1-1.2) X10*3/uL Eos # (Auto) (0.0-0.4) X10*3/uL Baso # (Auto) (0.0-0.2) X10*3/uL Abs Immat Gran (auto) (0.00-0.03) X10*3/uL Absolute Neuts (auto) (2.0-8.3) X10*3/uL Absolute Nucleated RBC (0.0-0.012) X10*3/uL Nucleated RBC % (auto) (0.0-0.2) /100WBC PT (10.8-13.0) SEC INR (0.9-1.1) APTT (24.1-38.0) SEC Sodium (135-145) mmol/L Potassium (3.3-5.1) mmol/l Chloride (96-108) mmol/L Carbon Dioxide (22-29) mmol/L Anion Gap (12-20) BUN (9-16) mg/dL Creatinine (0.5-1.4) mg/dL Estim Creat Clear Calc Estimated GFR Random Glucose (60-115) mg/dL Lactic Acid (0.5-2.0) mmol/L Calcium (8.4-10.2) mg/dL Magnesium (1.6-2.6) mg/dL Total Bilirubin (0.0-1.0) mg/dL Direct Bilirubin (0.0-0.5) mg/dL AST (5-31) U/L ALT (0-31) U/L Alkaline Phosphatase (39-117) U/L Ammonia (13-55) umol/L Troponin I High Sens < 3.5 (<3.5-17.0) ng/L B-Natriuretic Peptide 115 H (<100) pg/mL Total Protein (6.5-8.0) g/dL Albumin (3.5-5.0) g/dL Lipase (8-78) U/L Urine Color Urine Appearance Urine pH (5.0-8.0) Ur Specific [place] (1.005-1.025) Urine Protein (NEG-TRACE) MG/DL Urine Glucose (UA) (NEG) MG/DL Urine Ketones (NEG) MG/DL Urine Blood (NEG) Urine Nitrite (NEG) Ur Leukocyte Esterase (NEG) Urine RBC (0) /HPF Urine WBC (0-4) /HPF Ur Squamous Epith Cells /LPF Urine Bacteria /LPF Peritoneal WBC X10*3/uL Peritoneal RBC X10*6/uL Periton Neutrophils % Periton Lymphocytes % Peritoneal Monocytes % Peritoneal Basophils % Peritoneal Other Cells % Ethyl Alcohol 36 mg/dL 10/02/20 10/02/20 10/02/20 Range/Units 18:45 19:19 20:27 WBC (4.8-10.8) X10*3/uL RBC (4.20-5.50) X10*6/uL Hgb (12.0-16.0) g/dl Hct (37-47) % MCV (80-98) fL MCH (27.0-33.0) pg MCHC (31.0-35.0) g/dl RDW (11.0-16.0) % Plt Count (160-400) X10*3/uL MPV (9.4-12.3) fL Immature Gran % (Auto) (0.0-0.4) % Neut % (Auto) (45-73) % Lymph % (Auto) (20-40) % [place] % (Auto) (2-11) % Eos % (Auto) (0-4) % Baso % (Auto) (0-2) % Lymph # (Auto) (1.2-4.9) X10*3/uL [place] # (Auto) (0.1-1.2) X10*3/uL Eos # (Auto) (0.0-0.4) X10*3/uL Baso # (Auto) (0.0-0.2) X10*3/uL Abs Immat Gran (auto) (0.00-0.03) X10*3/uL Absolute Neuts (auto) (2.0-8.3) X10*3/uL Absolute Nucleated RBC (0.0-0.012) X10*3/uL Nucleated RBC % (auto) (0.0-0.2) /100WBC PT (10.8-13.0) SEC INR (0.9-1.1) APTT (24.1-38.0) SEC Sodium (135-145) mmol/L Potassium (3.3-5.1) mmol/l Chloride (96-108) mmol/L Carbon Dioxide (22-29) mmol/L Anion Gap (12-20) BUN (9-16) mg/dL Creatinine (0.5-1.4) mg/dL Estim Creat Clear Calc Estimated GFR Random Glucose (60-115) mg/dL Lactic Acid 3.7 H* (0.5-2.0) mmol/L Calcium (8.4-10.2) mg/dL Magnesium (1.6-2.6) mg/dL Total Bilirubin (0.0-1.0) mg/dL Direct Bilirubin (0.0-0.5) mg/dL AST (5-31) U/L ALT (0-31) U/L Alkaline Phosphatase (39-117) U/L Ammonia 124 H (13-55) umol/L Troponin I High Sens (<3.5-17.0) ng/L B-Natriuretic Peptide (<100) pg/mL Total Protein (6.5-8.0) g/dL Albumin (3.5-5.0) g/dL Lipase (8-78) U/L Urine Color PATO Urine Appearance HAZY Urine pH 6.5 (5.0-8.0) Ur Specific [place] 1.020 (1.005-1.025) Urine Protein 1+ H (NEG-TRACE) MG/DL Urine Glucose (UA) 100 H (NEG) MG/DL Urine Ketones 5 (NEG) MG/DL Urine Blood NEG (NEG) Urine Nitrite POS H (NEG) Ur Leukocyte Esterase TRACE H (NEG) Urine RBC 0 (0) /HPF Urine WBC 0 (0-4) /HPF Ur Squamous Epith Cells 3+ /LPF Urine Bacteria 1+ /LPF Peritoneal WBC X10*3/uL Peritoneal RBC X10*6/uL Periton Neutrophils % Periton Lymphocytes % Peritoneal Monocytes % Peritoneal Basophils % Peritoneal Other Cells % Ethyl Alcohol mg/dL 10/02/20 Range/Units 21:29 WBC (4.8-10.8) X10*3/uL RBC (4.20-5.50) X10*6/uL Hgb (12.0-16.0) g/dl Hct (37-47) % MCV (80-98) fL MCH (27.0-33.0) pg MCHC (31.0-35.0) g/dl RDW (11.0-16.0) % Plt Count (160-400) X10*3/uL MPV (9.4-12.3) fL Immature Gran % (Auto) (0.0-0.4) % Neut % (Auto) (45-73) % Lymph % (Auto) (20-40) % [place] % (Auto) (2-11) % Eos % (Auto) (0-4) % Baso % (Auto) (0-2) % Lymph # (Auto) (1.2-4.9) X10*3/uL [place] # (Auto) (0.1-1.2) X10*3/uL Eos # (Auto) (0.0-0.4) X10*3/uL Baso # (Auto) (0.0-0.2) X10*3/uL Abs Immat Gran (auto) (0.00-0.03) X10*3/uL Absolute Neuts (auto) (2.0-8.3) X10*3/uL Absolute Nucleated RBC (0.0-0.012) X10*3/uL Nucleated RBC % (auto) (0.0-0.2) /100WBC PT (10.8-13.0) SEC INR (0.9-1.1) APTT (24.1-38.0) SEC Sodium (135-145) mmol/L Potassium (3.3-5.1) mmol/l Chloride (96-108) mmol/L Carbon Dioxide (22-29) mmol/L Anion Gap (12-20) BUN (9-16) mg/dL Creatinine (0.5-1.4) mg/dL Estim Creat Clear Calc Estimated GFR Random Glucose (60-115) mg/dL Lactic Acid (0.5-2.0) mmol/L Calcium (8.4-10.2) mg/dL Magnesium (1.6-2.6) mg/dL Total Bilirubin (0.0-1.0) mg/dL Direct Bilirubin (0.0-0.5) mg/dL AST (5-31) U/L ALT (0-31) U/L Alkaline Phosphatase (39-117) U/L Ammonia (13-55) umol/L Troponin I High Sens (<3.5-17.0) ng/L B-Natriuretic Peptide (<100) pg/mL Total Protein (6.5-8.0) g/dL Albumin (3.5-5.0) g/dL Lipase (8-78) U/L Urine Color Urine Appearance Urine pH (5.0-8.0) Ur Specific [place] (1.005-1.025) Urine Protein (NEG-TRACE) MG/DL Urine Glucose (UA) (NEG) MG/DL Urine Ketones (NEG) MG/DL Urine Blood (NEG) Urine Nitrite (NEG) Ur Leukocyte Esterase (NEG) Urine RBC (0) /HPF Urine WBC (0-4) /HPF Ur Squamous Epith Cells /LPF Urine Bacteria /LPF Peritoneal WBC 0.065 X10*3/uL Peritoneal RBC < 0.002 X10*6/uL Periton Neutrophils 6 % Periton Lymphocytes 6 % Peritoneal Monocytes 75 % Peritoneal Basophils 1 % Peritoneal Other Cells 12 % Ethyl Alcohol mg/dL Imaging Data CT scan - abdomen: Attestation: I personally reviewed and interpreted this imaging study as follows: Radiologist's impression: EXAMINATION: CT ABDOMEN PELVIS WITHOUT CONTRAST CLINICAL INFORMATION: Abdominal pain, ascites. COMPARISON: Prior CT 09/09/2020. TECHNIQUE: Multidetector volumetric imaging was performed from the superior aspect of the liver through the pubic symphysis, without contrast. Sagittal and coronal reformatted images were obtained on the technologist's workstation. This CT examination was performed using dose optimization techniques as appropriate, variously including the following: *Automated exposure control. *Adjustment of mA and/or kV according to patient size (this includes techniques or standardized protocols for targeted exams where dose is matched to indication/reason for exam; i.e. extremities or head). *Use of iterative reconstruction technique. DLP: 508 mGy-cm FINDINGS: LOWER THORAX: Included lung bases are clear. HEPATOBILIARY: Hepatomegaly. Evaluation of the liver is limited on non-contrasted study, however, there are numerous hypodense areas in the liver throughout unchanged from recent CT scan of 09/09/2020; given the abnormality in the colon, concerning for possible developing liver abscesses. GALLBLADDER: Gallbladder has been removed, there are surgical clips in place. SPLEEN: Spleen is normal in size. PANCREAS: No focal mass or ductal dilatation. STOMACH AND GASTROINTESTINAL TRACT: Postsurgical changes from prior partial gastrectomy. Redemonstration of marked wall thickening mural edema of the entire colon especially in the cecum, this is a non-specific radiologic finding and can be seen in patients with infection i.e. colitis, ischemia, inflammatory condition, among others. This has slightly worsened since the most recent CT scan of 09/09/2020. No evidence of small bowel obstruction. ADRENALS: No adrenal nodules. KIDNEYS/URETERS: Evaluation of the kidneys is limited on this non-contrasted study, the kidneys and perinephric fat are clear, however. URINARY BLADDER: Partially decompressed. PELVIC VISCERA: Unremarkable PERITONEUM: There is ascites which has increased since prior study. There is no free air. LYMPH NODES: There are mildly enlarged mesenteric lymph nodes probably secondary to congestion and/or underlying infection. VASCULAR: Evaluation of the vascular structures is extremely limited due to lack of contrast. BONES, ABDOMINAL WALL AND SOFT TISSUES: Age-appropriate changes of the spine and skeletal system, no destructive osteolytic or osteosclerotic bone lesion found CT/CT abdomen pelvis wo con IMPRESSION: Study is limited due to lack of contrast. 1. Redemonstration of marked wall thickening mural edema of the entire colon especially the cecum, this has slightly worsened since prior CT of 09/09/2020, this is non-specific and could be sequela of infection, colitis, inflammatory conditions and bowel ischemia. 2. Hepatomegaly, evaluation of the liver is limited on this non-contrasted study; liver parenchyma, however, is extremely heterogeneous with multiple hypodense areas. Given the findings in the colon, this is concerning for possible infection, evolving abscesses. 3. Increasing ascites. If not already performed, patient may benefit from ultrasound-guided paracentesis for therapeutic and/or diagnostic purposes. 4. Postsurgical changes from prior partial gastrectomy, cholecystectomy. 5. Mildly enlarged mesenteric lymph nodes. Chest x-ray: Attestation: I personally reviewed and interpreted this imaging study as follows: Radiologist's impression: EXAMINATION: XR CHEST CLINICAL INFORMATION: Abdominal pain. COMPARISON: None TECHNIQUE: Frontal view of the chest was obtained. FINDINGS: The lungs are hypoexpanded with minimal atelectatic changes in the left lung base. Heart size and pulmonary vascularity is normal. No gross bony abnormality seen. XR/XR chest 1V IMPRESSION: Hypoexpanded lungs with atelectatic changes in left lung base. ECG Data Attestation: I personally reviewed and interpreted this ECG as follows: ECG interpretation date: 10/02/20 ECG interpretation time: 18:20 Prior ECG tracings: not available for review Interpretation: Ventricular rate 100 beats per minute, p.r. interval 128, QTC 408, QTC prolonged at 5:26 a.m., normal sinus rhythm, nonspecific T-wave abnormality, prior EKG is unavailable secondary to system failure Scores Heart Score History: -0- slightly suspicious ECG: -0- normal Age: -0- < or = 45 Risk factory: -0- no risk factors known Troponin: -0- < or = normal limit Score: 0 Risk: 1.7% Critical Care Time Critical Care Time Critical Care Time: Yes Total Critical Care Time: 95 Attestation: I have personally provided critical care time exclusive of time spent on separately billable procedures. Time includes review of laboratory data, radiology results, discussion with consultants, and monitoring for potential decompensation. Interventions were performed as documented. Discharge Plan Discharge Clinical Impression: Colitis, Acute metabolic encephalopathy Alcohol withdrawal Qualifiers: Complication of substance-induced condition: with delirium Qualified Code(s): F10.231 - Alcohol dependence with withdrawal delirium Ascites Qualifiers: Ascites type: due to alcoholic cirrhosis Qualified Code(s): K70.31 - Alcoholic cirrhosis of liver with ascites Sepsis Qualifiers: Sepsis type: sepsis due to unspecified organism Sepsis acute organ dysfunction status: with acute organ dysfunction Severe sepsis acute organ dysfunction type: encephalopathy Severe sepsis shock status: without septic shock Qualified Code(s): A41.9 - Sepsis, unspecified organism UTI (urinary tract infection) Qualifiers: Urinary tract infection type: acute cystitis Hematuria presence: with hematuria Qualified Code(s): N30.01 - Acute cystitis with hematuria Patient Disposition: Admitted As Inpatient [facility] Past Medical History Attestation statement: The following information was validated with the patient. Medical History Alcoholic cirrhosis of liver Asthma CHF (congestive heart failure) Chiari malformation CVA (cerebral vascular accident) Depression GI bleed Hepatitis C NSVT (nonsustained ventricular tachycardia) Peptic ulcer disease Seizure disorder Seizures Surgical History Gastric bypass status for obesity Hx of cholecystectomy Social History Social History Household Members: Family Housing: Apartment Alcohol intake: current Alcohol intake frequency: 3 or more drinks per day Alcohol type: hard liquor Smoking Status: Current every day smoker Tobacco Type: Cigarette Cigarettes Per Day: 0.5 Years Smoked: 12 Second Hand Smoke Exposure: Yes Advance Directives: No Advance Directives Information Provided: Yes service: No Current occupational status: unemployed
--- NOTE | 2020-10-02 17:21 | XR_ITS ---
EXAMINATION: XR CHEST CLINICAL INFORMATION: Abdominal pain. COMPARISON: None TECHNIQUE: Frontal view of the chest was obtained. FINDINGS: The lungs are hypoexpanded with minimal atelectatic changes in the left lung base. Heart size and pulmonary vascularity is normal. No gross bony abnormality seen. XR/XR chest 1V IMPRESSION: Hypoexpanded lungs with atelectatic changes in left lung base.
--- NOTE | 2020-10-02 17:21 | ECG_ITS ---
Test Reason : SOB Blood Pressure : / mmHG Vent. Rate : 100 BPM Atrial Rate : 100 BPM P-R Int : 128 ms QRS Dur : 084 ms QT Int : 408 ms P-R-T Axes : 027 032 031 degrees QTc Int : 526 ms Normal sinus rhythm Nonspecific T wave abnormality Abnormal ECG When compared with ECG of 24-SEP-2020 15:28, Nonspecific T wave abnormality now evident in Inferior leads Referred By: Brianda Trujillo Electronically Signed By:MOI GARCIA MD
--- NOTE | 2020-10-02 17:21 | CT_ITS ---
EXAMINATION: CT ABDOMEN PELVIS WITHOUT CONTRAST CLINICAL INFORMATION: Abdominal pain, ascites. COMPARISON: Prior CT 09/09/2020. TECHNIQUE: Multidetector volumetric imaging was performed from the superior aspect of the liver through the pubic symphysis, without contrast. Sagittal and coronal reformatted images were obtained on the technologist's workstation. This CT examination was performed using dose optimization techniques as appropriate, variously including the following: *Automated exposure control. *Adjustment of mA and/or kV according to patient size (this includes techniques or standardized protocols for targeted exams where dose is matched to indication/reason for exam; i.e. extremities or head). *Use of iterative reconstruction technique. DLP: 508 mGy-cm FINDINGS: LOWER THORAX: Included lung bases are clear. HEPATOBILIARY: Hepatomegaly. Evaluation of the liver is limited on non-contrasted study, however, there are numerous hypodense areas in the liver throughout unchanged from recent CT scan of 09/09/2020; given the abnormality in the colon, concerning for possible developing liver abscesses. GALLBLADDER: Gallbladder has been removed, there are surgical clips in place. SPLEEN: Spleen is normal in size. PANCREAS: No focal mass or ductal dilatation. STOMACH AND GASTROINTESTINAL TRACT: Postsurgical changes from prior partial gastrectomy. Redemonstration of marked wall thickening mural edema of the entire colon especially in the cecum, this is a non-specific radiologic finding and can be seen in patients with infection i.e. colitis, ischemia, inflammatory condition, among others. This has slightly worsened since the most recent CT scan of 09/09/2020. No evidence of small bowel obstruction. ADRENALS: No adrenal nodules. KIDNEYS/URETERS: Evaluation of the kidneys is limited on this non-contrasted study, the kidneys and perinephric fat are clear, however. URINARY BLADDER: Partially decompressed. PELVIC VISCERA: Unremarkable PERITONEUM: There is ascites which has increased since prior study. There is no free air. LYMPH NODES: There are mildly enlarged mesenteric lymph nodes probably secondary to congestion and/or underlying infection. VASCULAR: Evaluation of the vascular structures is extremely limited due to lack of contrast. BONES, ABDOMINAL WALL AND SOFT TISSUES: Age-appropriate changes of the spine and skeletal system, no destructive osteolytic or osteosclerotic bone lesion found CT/CT abdomen pelvis wo con IMPRESSION: Study is limited due to lack of contrast. 1. Redemonstration of marked wall thickening mural edema of the entire colon especially the cecum, this has slightly worsened since prior CT of 09/09/2020, this is non-specific and could be sequela of infection, colitis, inflammatory conditions and bowel ischemia. 2. Hepatomegaly, evaluation of the liver is limited on this non-contrasted study; liver parenchyma, however, is extremely heterogeneous with multiple hypodense areas. Given the findings in the colon, this is concerning for possible infection, evolving abscesses. 3. Increasing ascites. If not already performed, patient may benefit from ultrasound-guided paracentesis for therapeutic and/or diagnostic purposes. 4. Postsurgical changes from prior partial gastrectomy, cholecystectomy. 5. Mildly enlarged mesenteric lymph nodes.
[2020-10-02 18:00] VITALS: BP 112/58; PULSE 72; RESP 15; O2SAT 100
--- NOTE | 2020-10-02 18:23 | PC.NURSE ---
iv attempted two times, unsuccessful. katrina izaguirre at bedside to attempt.
[2020-10-02 18:51] LABS: MANUAL DIFF FLAG NO
[2020-10-02 18:58] LABS: Basophils Absolute Auto 0.1 X10*3/uL (0.0-0.2); Basophils Percent Auto 0.5 % (0-2); Eosinophils Absolute Auto 0.1 X10*3/uL (0.0-0.4); Eosinophils Percent Auto 0.4 % (0-4); Hematocrit 24.3 % (37-47); Hemoglobin 7.9 g/dl (12.0-16.0); Imm Gran Pct Auto 0.6 % (0.0-0.4); Lymphocytes Percent Auto 11.6 % (20-40); Mean Corpuscular HGB Conc 32.5 g/dl (31.0-35.0); Mean Corpuscular Hemoglobin 36.7 pg (27.0-33.0); Mean Platelet Volume 9.6 fL (9.4-12.3); Monocytes Percent Auto 5.7 % (2-11); Neutrophils Absolute Auto 14.4 X10*3/uL (2.0-8.3); Neutrophils Percent Auto 81.2 % (45-73); Platelet Count 156 X10*3/uL (160-400); Red Blood Count 2.15 X10*6/uL (4.20-5.50); Red Cell Distribution Width 20.8 % (11.0-16.0); White Blood Count 17.7 X10*3/uL (4.8-10.8)
[2020-10-02] MEDS: LORazepam 2 MG/ML VIAL 1 MG IVPUSH (19:07)
[2020-10-02 19:08] LABS: INTERNATIONAL NORM RATIO 1.7 (0.9-1.1); Prothrombin Time 20.8 SEC (10.8-13.0)
[2020-10-02 19:09] VITALS: RESP 29
[2020-10-02] MEDS: HYDROmorphone HCl 1 MG/ML SYRINGE IVPUSH ×3 (19:09→22:56)
[2020-10-02 19:10] LABS: Partial Thromboplastin Time 41.3 SEC (24.1-38.0)
[2020-10-02 19:18] LABS: Ammonia 124 umol/L (13-55)
[2020-10-02 19:19] LABS: Ethanol 36 mg/dL
[2020-10-02 19:25] LABS: Glucose Urine UA 100 MG/DL (NEG); Leukocyte Esterase Urine TRACE (NEG); Nitrite Urine POS (NEG); PH 6.5 (5.0-8.0); Urine Blood NEG (NEG); Urine Ketones 5 MG/DL (NEG); Urine Protein 1+ MG/DL (NEG-TRACE)
[2020-10-02 19:26] LABS: Appearance Urine HAZY
[2020-10-02 19:26] LABS: B Type Natriuretic Peptide 115 pg/mL (<100); Troponin-I High Sensitivity < 3.5 ng/L (<3.5-17.0)
[2020-10-02 19:27] LABS: Color Urine AMBER
[2020-10-02 19:35] LABS: Alanine Aminotransferase 16 U/L (0-31); Albumin Level 2.2 g/dL (3.5-5.0); Alkaline Phosphatase 241 U/L (39-117); Anion Gap 17 (12-20); Aspartate Amino Transferase 100 U/L (5-31); Bilirubin Total 12.1 mg/dL (0.0-1.0); Blood Urea Nitrogen 5 mg/dL (9-16); Calcium 7.4 mg/dL (8.4-10.2); Carbon Dioxide 18 mmol/L (22-29); Chloride 103 mmol/L (96-108); Estimated Glomerular Filt Rate > 60; Glucose Random 146 mg/dL (60-115); Lipase 20 U/L (8-78); Potassium 2.7 mmol/l (3.3-5.1); Sodium 135 mmol/L (135-145)
[2020-10-02 19:35] LABS: Bacteria Urine 1+ /LPF; RBC Urine 0 /HPF (0); Squamous Epithelial Cell Urine 3+ /LPF; WBC Urine 0 /HPF (0-4)
[2020-10-02 20:18] VITALS: BP 118/65; PULSE 107; RESP 27; TEMP 36.8; O2SAT 97
[2020-10-02] MEDS: metroNIDAZOLE/NS 500 MG/100 ML PIGGYBACK 100 MG IV (20:31)
[2020-10-02 20:59] VITALS: RESP 16
[2020-10-02] MEDS: Lidocaine HCl 2 % MPF 5 ML VIAL 15 ML SUBCUT (21:00)
[2020-10-02 21:09] LABS: Lactic Acid 3.7 mmol/L (0.5-2.0)
[2020-10-02 21:44] LABS: MN% 78.2 %; PMN% 21.8 %; WBC Peritoneal Fluid 0.065 X10*3/uL
[2020-10-02 21:45] LABS: RBC Peritoneal Fluid < 0.002 X10*6/uL
[2020-10-02 22:04] LABS: BF Shift QC OK YES; Basophils Peritoneal Fl 1 %; Lymphocyte Peritoneal Fl 6 %; Man Diluent Bkgrd OK YES; Monocytes Peritoneal Fl 75 %; Neutrophils Peritoneal Fluid 6 %; Other Peritioneal Fl 12 %
[2020-10-02] MEDS: levoFLOXacin/D5W 500 MG/100 ML PIGGYBACK 100 MG IV (22:15)
[2020-10-02] MEDS: PHENobarbitaL sodium 130 MG/ML VIAL 283 MG IM (22:15)
[2020-10-02 22:22] VITALS: BP 115/57; PULSE 107; RESP 17; O2SAT 98
[2020-10-02 22:33] LABS: Reflex Lactate? Lactic Acid Added
[2020-10-02] MEDS: 0.9 % Sodium Chloride 1,000 ML 999 ML IVCONT ×2 (22:44→22:45)
[2020-10-02] MEDS: Lactulose 20 GM/30 ML SOLUTION 30 GM PO (22:52)
[2020-10-02 23:44] LABS: COVID-19 Test Negative (Negative)
[2020-10-02 23:55] LABS: ~Lactic Acid-LAB USE ONLY 1.7 mmol/L (0.5-2.0)
[2020-10-03] VITALS (12 sets, daily range): BP systolic 91–118; BP diastolic 49–67; PULSE 100–122; RESP 16–20; TEMP 36.6–37.4; O2SAT 96–100
--- NOTE | 2020-10-03 00:45 | PM.IMHP ---
History of Present Illness Date of Service: 10/03/20 Chief Complaint: Abdominal pain 30 y/o female with known hx of Alcohol abuse and colitis who presented due to abdominal pain. Patient is a very poor historian and not cooperative on giving hx. Patient is known to us as has been admitted multiple times due to similar c/o persistent abdominal pain, nausea and vomiting blood. Has signed out AMA multiple times of the hospital as reports that pain has not been addressed correctly . Patient has refused as well GI work up in the past and detox treatment. On current presentation patient is positive for sepsis secondary to multiple sources including UTI and persistent colitis evident on CT which is concerning for possible underlying bowel ischemia and underlying abscess. Surgery was called per ED Dr Leavitt who will follow up in the am. Patient was given multiple doses of IV dilaudid, One dose of Levaquin and flagyl covering for colitis and UTI. KCL supplemented accordingly. Decision for admission given to medicine. Patient seen and examined at the bedside, laying down in bed complaining for abdominal pain. Not cooperative. ROS as above otherwise negative. Physical exam positive for diffuse abdominal tenderness but no evidence of masses on palpation. PAST MEDICAL HISTORY: 1. ALCOHOL INDUCED STEATOHEPATITIS 2. Alcohol dependence 3. chronic anemia 4. NSVT (nonsustained ventricular tachycardia) 5. 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 Chiari malformation. 2. Cholecystectomy. 3. Multiple EGDs. 4. Gastric bypass surgery. FAMILY HISTORY: CAD, HYPERTENSION, STROKE SOCIAL HISTORY: Drinks Alcohol Review of Systems Gastrointestinal: Gastrointestinal: Reports abdominal pain, Reports nausea and Reports vomiting [facility] Medical History Alcoholic cirrhosis of liver Asthma CHF (congestive heart failure) Chiari malformation CVA (cerebral vascular accident) Depression GI bleed Hepatitis C NSVT (nonsustained ventricular tachycardia) Peptic ulcer disease Seizure disorder Seizures Functional capacity: independent ambulation Surgical History Gastric bypass status for obesity Hx of cholecystectomy Social History Household Members: Family Housing: Apartment Alcohol intake: current Alcohol intake frequency: 3 or more drinks per day Alcohol type: hard liquor Smoking Status: Current every day smoker Tobacco Type: Cigarette Cigarettes Per Day: 0.5 Years Smoked: 12 Second Hand Smoke Exposure: Yes Advance Directives: No Advance Directives Information Provided: Yes service: No Current occupational status: unemployed Meds Allergies Allergy/AdvReac Type Severity Reaction Status Date / Time morphine [MORPHINE] Allergy Mild HIVES Verified 10/02/20 16:21 banana [BANANA] AdvReac Severe DIFFICULTY Verified 10/02/20 16:21 BREATHING morphine and related Allergy Unknown Hives Uncoded 09/12/20 17:13 Home Medications Medication Instructions Recorded Confirmed Type mirtazapine 1 tab SUBLINGUAL BEDTIME 09/09/20 10/02/20 History ferrous sulfate 5 ml PO DAILY 10/02/20 10/02/20 History omeprazole 1 cap PO BID 10/02/20 10/02/20 History Physical Exam Vital Signs and Narrative: Vital Signs: Last Vital Signs Temp 98.3 F 10/02/20 20:18 Pulse 107 H 10/02/20 22:22 Resp 17 10/02/20 22:22 BP 115/57 L 10/02/20 22:22 Pulse Ox 98 10/02/20 22:22 Body Mass Index 0.0 Const: General: anxious and other (not cooperative) Orientation/consciousness: oriented to person, oriented to place and oriented to time HENMT: Head: Yes normal to inspection Eyes: General: appearance normal, both eyes and all related structures Neck: Yes normal visual inspection Chest: Chest palpation & inspection: normal inspection of the chest Resp: Effort & Inspection: normal respiratory effort Cardio: Jugular venous distension: no JVD Rate: regular rate Rhythm: regular rhythm Heart sounds: S1 normal heart sound present and S2 normal heart sound present GI: Inspection: Yes other (abdominal tenderness on palpation, no masses identified ) Skin: General skin exam: no rashes or lesions noted Neuro: General: oriented to person, oriented to place and oriented to time Cognition (Neuro): normal cognition Extrem: General: Yes normal to inspection Psych: Appearance: grossly normal Results Labs CBC and Chem 7: 10/02/20 18:45 10/02/20 18:45 Labs: Laboratory Results - last 24 hr 10/02/20 10/02/20 10/02/20 18:45 18:45 18:45 MCV 113.0 H MCH 36.7 H MCHC 32.5 RDW 20.8 H Plt Count 156 L MPV 9.6 Immature Gran % (Auto) 0.6 H Neut % (Auto) 81.2 H Lymph % (Auto) 11.6 L [place] % (Auto) 5.7 Eos % (Auto) 0.4 Baso % (Auto) 0.5 Lymph # (Auto) 2.0 [place] # (Auto) 1.0 Eos # (Auto) 0.1 Baso # (Auto) 0.1 Abs Immat Gran (auto) 0.10 H Absolute Neuts (auto) 14.4 H Absolute Nucleated RBC 0.000 Nucleated RBC % (auto) 0.0 PT 20.8 H INR 1.7 H APTT 41.3 H Anion Gap 17 Estim Creat Clear Calc TNP Estimated GFR > 60 Random Glucose 146 H Lactic Acid Lactic Acid Fup @ 2Hr Calcium 7.4 L Magnesium 2.0 Total Bilirubin 12.1 H Direct Bilirubin 9.0 H AST 100 H ALT 16 Alkaline Phosphatase 241 H Ammonia Troponin I High Sens B-Natriuretic Peptide Total Protein 6.0 L Albumin 2.2 L Lipase 20 Urine Color Urine Appearance Urine pH Ur Specific [place] Urine Protein Urine Glucose (UA) Urine Ketones Urine Blood Urine Nitrite Ur Leukocyte Esterase Urine RBC Urine WBC Ur Squamous Epith Cells Urine Bacteria Peritoneal WBC Peritoneal RBC Periton Neutrophils Periton Lymphocytes Peritoneal Monocytes Peritoneal Basophils Peritoneal Other Cells Ethyl Alcohol COVID-19 ([facility]) COVID-19 Clin Com 10/02/20 10/02/20 10/02/20 18:45 18:45 18:45 MCV MCH MCHC RDW Plt Count MPV Immature Gran % (Auto) Neut % (Auto) Lymph % (Auto) [place] % (Auto) Eos % (Auto) Baso % (Auto) Lymph # (Auto) [place] # (Auto) Eos # (Auto) Baso # (Auto) Abs Immat Gran (auto) Absolute Neuts (auto) Absolute Nucleated RBC Nucleated RBC % (auto) PT INR APTT Anion Gap Estim Creat Clear Calc Estimated GFR Random Glucose Lactic Acid Lactic Acid Fup @ 2Hr Calcium Magnesium Total Bilirubin Direct Bilirubin AST ALT Alkaline Phosphatase Ammonia Troponin I High Sens < 3.5 B-Natriuretic Peptide 115 H Total Protein Albumin Lipase Urine Color Urine Appearance Urine pH Ur Specific [place] Urine Protein Urine Glucose (UA) Urine Ketones Urine Blood Urine Nitrite Ur Leukocyte Esterase Urine RBC Urine WBC Ur Squamous Epith Cells Urine Bacteria Peritoneal WBC Peritoneal RBC Periton Neutrophils Periton Lymphocytes Peritoneal Monocytes Peritoneal Basophils Peritoneal Other Cells Ethyl Alcohol 36 COVID-19 ([facility]) COVID-19 Hammerless Com 10/02/20 10/02/20 10/02/20 18:45 19:19 20:27 MCV MCH MCHC RDW Plt Count MPV Immature Gran % (Auto) Neut % (Auto) Lymph % (Auto) [place] % (Auto) Eos % (Auto) Baso % (Auto) Lymph # (Auto) [place] # (Auto) Eos # (Auto) Baso # (Auto) Abs Immat Gran (auto) Absolute Neuts (auto) Absolute Nucleated RBC Nucleated RBC % (auto) PT INR APTT Anion Gap Estim Creat Clear Calc Estimated GFR Random Glucose Lactic Acid 3.7 H* Lactic Acid Fup @ 2Hr Calcium Magnesium Total Bilirubin Direct Bilirubin AST ALT Alkaline Phosphatase Ammonia 124 H Troponin I High Sens B-Natriuretic Peptide Total Protein Albumin Lipase Urine Color PATO Urine Appearance HAZY Urine pH 6.5 Ur Specific [place] 1.020 Urine Protein 1+ H Urine Glucose (UA) 100 H Urine Ketones 5 Urine Blood NEG Urine Nitrite POS H Ur Leukocyte Esterase TRACE H Urine RBC 0 Urine WBC 0 Ur Squamous Epith Cells 3+ Urine Bacteria 1+ Peritoneal WBC Peritoneal RBC Periton Neutrophils Periton Lymphocytes Peritoneal Monocytes Peritoneal Basophils Peritoneal Other Cells Ethyl Alcohol COVID-19 ([facility]) COVID-19 Hammerless Com 10/02/20 10/02/20 10/02/20 21:29 23:25 23:25 MCV MCH MCHC RDW Plt Count MPV Immature Gran % (Auto) Neut % (Auto) Lymph % (Auto) [place] % (Auto) Eos % (Auto) Baso % (Auto) Lymph # (Auto) [place] # (Auto) Eos # (Auto) Baso # (Auto) Abs Immat Gran (auto) Absolute Neuts (auto) Absolute Nucleated RBC Nucleated RBC % (auto) PT INR APTT Anion Gap Estim Creat Clear Calc Estimated GFR Random Glucose Lactic Acid Lactic Acid Fup @ 2Hr 1.7 Calcium Magnesium Total Bilirubin Direct Bilirubin AST ALT Alkaline Phosphatase Ammonia Troponin I High Sens B-Natriuretic Peptide Total Protein Albumin Lipase Urine Color Urine Appearance Urine pH Ur Specific [place] Urine Protein Urine Glucose (UA) Urine Ketones Urine Blood Urine Nitrite Ur Leukocyte Esterase Urine RBC Urine WBC Ur Squamous Epith Cells Urine Bacteria Peritoneal WBC 0.065 Peritoneal RBC < 0.002 Periton Neutrophils 6 Periton Lymphocytes 6 Peritoneal Monocytes 75 Peritoneal Basophils 1 Peritoneal Other Cells 12 Ethyl Alcohol COVID-19 ([facility]) Negative COVID-19 Clin Com See Note Imaging Radiologist's Impressions: Impressions Abdomen/Pelvis CT 10/02/20 17:21 IMPRESSION: Study is limited due to lack of contrast. 1. Redemonstration of marked wall thickening mural edema of the entire colon especially the cecum, this has slightly worsened since prior CT of 09/09/2020, this is non-specific and could be sequela of infection, colitis, inflammatory conditions and bowel ischemia. 2. Hepatomegaly, evaluation of the liver is limited on this non-contrasted study; liver parenchyma, however, is extremely heterogeneous with multiple hypodense areas. Given the findings in the colon, this is concerning for possible infection, evolving abscesses. 3. Increasing ascites. If not already performed, patient may benefit from ultrasound-guided paracentesis for therapeutic and/or diagnostic purposes. 4. Postsurgical changes from prior partial gastrectomy, cholecystectomy. 5. Mildly enlarged mesenteric lymph nodes. Chest X-Ray 10/02/20 17:21 IMPRESSION: Hypoexpanded lungs with atelectatic changes in left lung base. Assessment and Plan (1) Sepsis: Qualifiers: Sepsis acute organ dysfunction status: with acute organ dysfunction Sepsis type: sepsis due to unspecified organism Severe sepsis acute organ dysfunction type: encephalopathy Severe sepsis shock status: without septic shock Qualified Code(s): A41.9 - Sepsis, unspecified organism; R65.20 - Severe sepsis without septic shock; G93.40 - Encephalopathy, unspecified Status: Acute S/p one dose of Levaquin and flagyl in the ED Continue with Rocephin for gram negative coverage Continue with Flagyl for anaerobic coverage Follow up Ucs and Bcx Infectious disease consult in the am (2) UTI (urinary tract infection): Qualifiers: Hematuria presence: with hematuria Urinary tract infection type: acute cystitis Qualified Code(s): N30.01 - Acute cystitis with hematuria Status: Acute as above (3) Ascites: Qualifiers: Ascites type: due to alcoholic cirrhosis Qualified Code(s): K70.31 - Alcoholic cirrhosis of liver with ascites Status: Acute S/p paracentesis in the ED Follow up studies (4) Colitis: Status: Acute Continue with IV antbx as ordered Trend lactate Continue with IV hydration NPO as of now. advance diet as tolerated Follow up with General surgery regarding concerns for possible bowel ischemia and underlying liver abscess on imaging (5) Hypokalemia: Status: Acute s/p supplemented follow up repeat BMP (6) Alcohol abuse: Status: Acute started on phenobarbital per protocol in the am Detox to be offered in the am but patient has refused multiple times in the past (7) Anemia: Status: Acute Hgb of 7.9. Baseline of 8.9 Follow up repeat CBC in the am Continue with PPI home dose Will need GI work up if agreeable in the am for possible GI bleed (8) Orthostatic hypotension: Status: Acute continue with midodrine home dose (9) Depression: Status: Inactive continue with mirtazapine home dose
[2020-10-03] MEDS: cefTRIAXone sodium 1 GM in 0.9 % Sodium Chloride 50 ML IV (01:00)
[2020-10-03] MEDS: HYDROmorphone HCl 2 MG/ML VIAL IVPUSH (01:00)
[2020-10-03] MEDS: PHENobarbitaL sodium 65 MG/ML VIAL 212 MG IM ×2 (01:00→04:18)
[2020-10-03] MEDS: Lactulose 20 GM/30 ML SOLUTION 10 GM PO (02:42)
[2020-10-03 03:50] LABS: Basophils Percent Auto 0.3 % (0-2); Eosinophils Absolute Auto 0.1 X10*3/uL (0.0-0.4); Eosinophils Percent Auto 0.6 % (0-4); Hematocrit 23.3 % (37-47); Hemoglobin 7.6 g/dl (12.0-16.0); Imm Gran Abs Auto 0.15 X10*3/uL (0.00-0.03); Imm Gran Pct Auto 0.9 % (0.0-0.4); Lymphocytes Absolute Auto 1.4 X10*3/uL (1.2-4.9); Lymphocytes Percent Auto 8.6 % (20-40); MANUAL DIFF FLAG SCAN; Mean Corpuscular HGB Conc 32.6 g/dl (31.0-35.0); Mean Corpuscular Hemoglobin 37.4 pg (27.0-33.0); Mean Corpuscular Volume 114.8 fL (80-98); Mean Platelet Volume 9.3 fL (9.4-12.3); Monocytes Absolute Auto 1.5 X10*3/uL (0.1-1.2); Monocytes Percent Auto 9.6 % (2-11); Neutrophils Absolute Auto 12.7 X10*3/uL (2.0-8.3); Platelet Count 159 X10*3/uL (160-400); Red Blood Count 2.03 X10*6/uL (4.20-5.50); SCAN SMEAR FLAG 1; White Blood Count 15.9 X10*3/uL (4.8-10.8)
[2020-10-03 04:15] LABS: SLIDE REVIEW VERIFIED
[2020-10-03 04:18] LABS: Anion Gap 15 (12-20); Blood Urea Nitrogen 4 mg/dL (9-16); Carbon Dioxide 18 mmol/L (22-29); Chloride 107 mmol/L (96-108); Creatinine Clr Calc Pharmacy 109.3; Estimated Glomerular Filt Rate > 60; Glucose Random 105 mg/dL (60-115); Lactate Dehydrogenase 283 U/L (122-220); Potassium 3.3 mmol/l (3.3-5.1); Sodium 137 mmol/L (135-145)
[2020-10-03] MEDS: Omeprazole 20 MG CAPSULE.DR PO ×2 (05:33→17:10)
[2020-10-03] MEDS: metroNIDAZOLE/NS 500 MG/100 ML PIGGYBACK 100 MG IV ×3 (05:33→22:16)
[2020-10-03 07:18] LABS: Albumin Peritoneal Fluid 0.2; Total Protein Peritoneal Fluid 0.5
[2020-10-03 07:19] LABS: Creatinine Peritoneal Fluid 0.7; Glucose Peritoneal Fluid 142; LDH Peritoneal Fluid 25
[2020-10-03 07:20] LABS: Amylase Peritoneal Fluid 9
[2020-10-03] MEDS: PHENobarbitaL 15 MG TABLET 45 MG PO ×2 (08:27→20:08)
[2020-10-03] MEDS: 0.9 % Sodium Chloride Flush 3 ML SYRINGE IVFLUSH ×2 (08:27→17:12)
[2020-10-03] MEDS: Midodrine HCl 5 MG TABLET PO ×3 (08:27→20:08)
--- NOTE | 2020-10-03 10:07 | MHC.CM.PN ---
PT REPORTS SHE LIVES WITH HER MOTHER AND HAS [employer] SERVICES THROUGH [employer]. PT DENIES HAVING ANY OTHER SERVICES IN THE HOME. PT REPORTS SHE DOES NOT USE ANY DME. PT CONFIRMS THE PCP AND HCP ON FILE ACCURATE. CURRENT DC PLAN IS HOME WITH NO SERVICES PTS MOTHER WILL PROVIDE TRANSPORTATION
--- NOTE | 2020-10-03 10:11 | P.PNIM_ITS ---
Subjective Subjective Date of Service: 10/03/20 Interval History: diffuse body pains Cardiovascular Cardiovascular: Reports no additional cardiovascular complaints Respiratory Respiratory: Reports no additional respiratory complaints Physical Exam Vital Signs: Vital Signs: Last Vital Signs Temp 98.7 F 10/03/20 08:00 Pulse 113 H 10/03/20 08:27 Resp 20 10/03/20 08:00 BP 101/49 L 10/03/20 08:27 Pulse Ox 97 10/03/20 08:00 Body Mass Index 0.0 General: AO X 3, no acute distress, jaundice Resp: CTA bilateral CVS: S1,S2,RRR GI: soft, non tender, non distended Neuro: motor grossly intact Psych: appropriate affect Objective Data Current Medications Generic Name Dose Route Start Last Admin Trade Name Freq PRN Reason Stop Dose Admin Levofloxacin 500 mg in 100 mls @ 100 mls/hr 10/02/20 20:00 10/02/20 23:11 Levaquin IV Infused Q24H ALTHEA Infusion Ceftriaxone Sodium 1 gm/ 50 mls @ 100 mls/hr 10/03/20 01:00 10/03/20 01:30 Sodium Chloride IV Infused Q24H ALTHEA Infusion Metronidazole 500 mg in 100 mls @ 100 mls/hr 10/03/20 06:00 10/03/20 06:48 Flagyl IV Infused Q8H ALTHEA Infusion Medication 1 each 10/03/20 09:00 No Benzodiazepines MISCELLANE DAILY ALTHEA Midodrine 5 mg 10/03/20 09:00 10/03/20 08:27 Midodrine Hcl 5 Mg Tablet PO 5 mg TID ALTHEA Administration Mirtazapine 15 mg 10/03/20 21:00 Mirtazapine 15 Mg Tablet PO BEDTIME ALTHEA Nicotine 21 mg 10/03/20 09:00 Nicotine 21 Mg Patch.Td24 TRANSDERMA DAILY ALTHEA Omeprazole 20 mg 10/03/20 06:30 10/03/20 05:33 Omeprazole 20 Mg Capsule.Dr PO 20 mg BID@0630,1630 ALTHEA Administration Oxycodone HCl 5 mg 10/03/20 09:32 Oxycodone Hcl Immed Release 5 Mg Tablet PO Q12H PRN pain Phenobarbital 45 mg 10/03/20 09:00 10/03/20 08:27 Phenobarbital 15 Mg Tablet PO 10/04/20 21:01 45 mg BID ALTHEA Administration Protocol Phenobarbital 15 mg 10/05/20 09:00 Phenobarbital 15 Mg Tablet PO 10/06/20 21:01 BID ALTHEA Protocol Phenobarbital 15 mg 10/07/20 09:00 Phenobarbital 15 Mg Tablet PO 10/08/20 09:01 DAILY [facility] Protocol Sodium Chloride 3 ml 10/03/20 08:00 10/03/20 08:27 0.9 % Sodium Chloride Flush 3 Ml Syringe IVFLUSH 3 ml QSHIFT [facility] Administration Trazodone HCl 50 mg 10/03/20 21:00 Trazodone Hcl 50 Mg Tablet PO BEDTIME [facility] Labs CBC & Chem 7: 10/03/20 03:36 10/03/20 03:36 Microbiology Microbiology Results: Microbiology 10/02/20 21:28 Abdominal Fluid Gram Stain - Final 10/02/20 21:28 Abdominal Fluid Routine Culture - Preliminary No growth to date. 10/02/20 19:29 Urine clean catch - Clean Catch Midstream Urine Culture - Preliminary No growth to date. Assessment and Plan (1) Acute alcoholic hepatitis: Status: Acute (2) Alcohol withdrawal: Status: Acute (3) Colitis: Status: Acute (4) Ascites: Status: Acute Assessment and Plan: 30F presented with diffuse body pain, abdominal distension, diarrhea, cT suggestive of pancolitis and possible liver abscesses ?colitis and liver abscess continue antibiotics surgery and id eval check cdif possible all due to hepatitis though alcohol dependence with withdrawl and hepatitis phenobarb
[2020-10-03] MEDS: oxyCODONE HCl Immed Release 5 MG TABLET PO ×2 (10:26→23:03)
[2020-10-03] MEDS: Nicotine 21 MG PATCH.TD24 TRANSDERMA (10:26)
--- NOTE | 2020-10-03 10:38 | PM.CNGS ---
History of Present Illness Consult details Consult date: 10/03/20 Reason for consult: abdominal pain Requesting physician: Saad Higginbotham Narrative: 30-year-old female patient presenting with diffuse abdominal pain. Patient has a known history of alcohol abuse with hepatic cirrhosis and history of upper GI bleeds. She has had previous admissions for abdominal pain. She presented to the emergency department with increased abdominal pain associated with nausea and vomiting. She was evaluated with a CT of the abdomen and pelvis which revealed diffuse colitis which has increased from her previous CT scan. She reports passing diarrhea but is also on lactulose. Patient has been on antibiotics prior. She reports taking Tylenol at home for her abdominal pain despite warnings to avoid Tylenol. Review of Systems Constitutional: Constitutional: Denies chills, Denies fever(s), Denies headache(s) and Denies poor appetite ENT: Denies dizziness and Denies headache(s) Cardiovascular: Cardiovascular: Denies chest pain, Denies rapid heart rate, Denies palpitations and Denies slow heart rate Respiratory: Respiratory: Denies chest congestion, Denies cough, Denies pain on inspiration and Denies wheezing Gastrointestinal: Gastrointestinal: Reports abdominal pain, Reports bloating, Denies change in stool character, Denies constipation, Reports diarrhea, Reports nausea, Reports vomiting and Reports hematemesis Musculoskeletal: Musculoskeletal: Denies back pain, Denies arthralgias, Denies joint swelling and Denies numbness Integumentary/Breasts: Skin/Breast: Denies change in pigmentation, Denies erythema and Denies rash Neurologic: Denies confusion, Denies dizziness, Denies headache(s) and Denies numbness Psychiatric: Psychiatric: Denies anxiety, Denies confusion and Denies depression Endocrine: Endocrine: Denies palpitations Hematologic/Lymphatic: Hematologic/Lymphatic: Denies easy bleeding, Denies easy bruising and Denies lymphadenopathy Allergic/Immunologic: Allergic/Immunologic: Denies wheezing PMFSH Past Medical History Medical History Acute GI bleeding Acute metabolic encephalopathy Alcoholic cirrhosis of liver Asthma CHF (congestive heart failure) Chiari malformation CVA (cerebral vascular accident) Depression Depression with anxiety GI bleed Hemorrhoids Hepatitis C Hypokalemia NSVT (nonsustained ventricular tachycardia) Orthostatic hypotension Peptic ulcer disease Seizures Functional capacity: independent ambulation Surgical History Surgical History Gastric bypass status for obesity Hx of cholecystectomy Social History Social History Household Members: Family Housing: Apartment Alcohol intake: current Alcohol intake frequency: 3 or more drinks per day Alcohol type: hard liquor Smoking Status: Current every day smoker Tobacco Type: Cigarette Cigarettes Per Day: 0.5 Years Smoked: 12 Smoked in Last 30 Days: Yes Patient Interested in Nicotine Replacement: Yes Patient Given Instructions on How to Stop Smoking: Yes Date Education Initiated: 10/03/20 Second Hand Smoke Exposure: No Use of substances other than those prescribed or required for medical reasons: No Currently Displaying Signs/Symptoms of Drug Intoxication Withdrawal: No Have you been hit, kicked, punched, or otherwise hurt by someone within the past year? If so, by whom?: No Do you feel safe in your current relationship?: Yes Is there a partner from a previous relationship who is making you feel unsafe now?: No Are you made to feel afraid or neglected: No Advance Directives: No Advance Directives Information Provided: Yes Do you have thoughts of harming others: None Do you have a plan to hurt others: No Plan Recently lost weight without trying: No service: No Current occupational status: unemployed Meds Allergies Allergy/AdvReac Type Severity Reaction Status Date / Time morphine [MORPHINE] Allergy Mild HIVES Verified 10/02/20 16:21 banana [BANANA] AdvReac Severe DIFFICULTY Verified 10/02/20 16:21 BREATHING morphine and related Allergy Unknown Hives Uncoded 09/12/20 17:13 Home Medications Medication Instructions Recorded Confirmed Type mirtazapine 1 tab SUBLINGUAL BEDTIME 09/09/20 10/02/20 History ferrous sulfate 5 ml PO DAILY 10/02/20 10/02/20 History omeprazole 1 cap PO BID 10/02/20 10/02/20 History Physical Exam Vital Signs: Vital Signs: Last Vital Signs Temp 98.7 F 10/03/20 08:00 Pulse 113 H 10/03/20 08:27 Resp 20 10/03/20 08:00 BP 101/49 L 10/03/20 08:27 Pulse Ox 97 10/03/20 08:00 Body Mass Index 0.0 Const: General: No confusion Nutritional Appearance: well nourished Orientation/consciousness: No confusion Eyes: Sclerae: scleral abnormal (icteric) bilateral EOM: EOMs intact bilaterally Neck: Neck: Yes normal visual inspection Resp: Effort & Inspection: normal respiratory effort, no cough and no respiratory distress Cardio: Jugular venous distension: no JVD Rate: regular rate Rhythm: regular rhythm GI: Inspection: Yes normal to inspection Palpation (GI): Soft to palpation, Tenderness to palpation present (GI), no guarding and not rigid Percussion: Yes dullness to percussion and Yes Fluid wave present Skin: General skin exam: dry skin and jaundice Rashes: no rashes Neuro: General: No confusion Extrem: General: Yes full ROM and Yes no clubbing, cyanosis or edema Results Labs Result diagrams: 10/03/20 03:36 10/03/20 03:36 Labs: Abnormal lab results 10/02/20 10/02/20 10/02/20 Range/Units 18:45 18:45 18:45 WBC 17.7 H (4.8-10.8) X10*3/uL RBC 2.15 L (4.20-5.50) X10*6/uL Hgb 7.9 L (12.0-16.0) g/dl Hct 24.3 L (37-47) % MCV 113.0 H (80-98) fL MCH 36.7 H (27.0-33.0) pg RDW 20.8 H (11.0-16.0) % Plt Count 156 L (160-400) X10*3/uL MPV (9.4-12.3) fL Immature Gran % (Auto) 0.6 H (0.0-0.4) % Neut % (Auto) 81.2 H (45-73) % Lymph % (Auto) 11.6 L (20-40) % [place] # (Auto) (0.1-1.2) X10*3/uL Abs Immat Gran (auto) 0.10 H (0.00-0.03) X10*3/uL Absolute Neuts (auto) 14.4 H (2.0-8.3) X10*3/uL PT 20.8 H (10.8-13.0) SEC INR 1.7 H (0.9-1.1) APTT 41.3 H (24.1-38.0) SEC Potassium 2.7 L (3.3-5.1) mmol/l Carbon Dioxide 18 L (22-29) mmol/L BUN 5 L (9-16) mg/dL Random Glucose 146 H (60-115) mg/dL Lactic Acid (0.5-2.0) mmol/L Calcium 7.4 L (8.4-10.2) mg/dL Total Bilirubin 12.1 H (0.0-1.0) mg/dL Direct Bilirubin 9.0 H (0.0-0.5) mg/dL AST 100 H (5-31) U/L Alkaline Phosphatase 241 H (39-117) U/L Ammonia (13-55) umol/L Lactate Dehydrogenase (122-220) U/L B-Natriuretic Peptide (<100) pg/mL Total Protein 6.0 L (6.5-8.0) g/dL Albumin 2.2 L (3.5-5.0) g/dL Urine Protein (NEG-TRACE) MG/DL Urine Glucose (UA) (NEG) MG/DL Urine Nitrite (NEG) Ur Leukocyte Esterase (NEG) 10/02/20 10/02/20 10/02/20 Range/Units 18:45 18:45 19:19 WBC (4.8-10.8) X10*3/uL RBC (4.20-5.50) X10*6/uL Hgb (12.0-16.0) g/dl Hct (37-47) % MCV (80-98) fL MCH (27.0-33.0) pg RDW (11.0-16.0) % Plt Count (160-400) X10*3/uL MPV (9.4-12.3) fL Immature Gran % (Auto) (0.0-0.4) % Neut % (Auto) (45-73) % Lymph % (Auto) (20-40) % [place] # (Auto) (0.1-1.2) X10*3/uL Abs Immat Gran (auto) (0.00-0.03) X10*3/uL Absolute Neuts (auto) (2.0-8.3) X10*3/uL PT (10.8-13.0) SEC INR (0.9-1.1) APTT (24.1-38.0) SEC Potassium (3.3-5.1) mmol/l Carbon Dioxide (22-29) mmol/L BUN (9-16) mg/dL Random Glucose (60-115) mg/dL Lactic Acid (0.5-2.0) mmol/L Calcium (8.4-10.2) mg/dL Total Bilirubin (0.0-1.0) mg/dL Direct Bilirubin (0.0-0.5) mg/dL AST (5-31) U/L Alkaline Phosphatase (39-117) U/L Ammonia 124 H (13-55) umol/L Lactate Dehydrogenase (122-220) U/L B-Natriuretic Peptide 115 H (<100) pg/mL Total Protein (6.5-8.0) g/dL Albumin (3.5-5.0) g/dL Urine Protein 1+ H (NEG-TRACE) MG/DL Urine Glucose (UA) 100 H (NEG) MG/DL Urine Nitrite POS H (NEG) Ur Leukocyte Esterase TRACE H (NEG) 10/02/20 10/03/20 10/03/20 Range/Units 20:27 03:36 03:36 WBC 15.9 H (4.8-10.8) X10*3/uL RBC 2.03 L (4.20-5.50) X10*6/uL Hgb 7.6 L (12.0-16.0) g/dl Hct 23.3 L (37-47) % MCV 114.8 H (80-98) fL MCH 37.4 H (27.0-33.0) pg RDW 21.0 H (11.0-16.0) % Plt Count 159 L (160-400) X10*3/uL MPV 9.3 L (9.4-12.3) fL Immature Gran % (Auto) 0.9 H (0.0-0.4) % Neut % (Auto) 80.0 H (45-73) % Lymph % (Auto) 8.6 L (20-40) % [place] # (Auto) 1.5 H (0.1-1.2) X10*3/uL Abs Immat Gran (auto) 0.15 H (0.00-0.03) X10*3/uL Absolute Neuts (auto) 12.7 H (2.0-8.3) X10*3/uL PT (10.8-13.0) SEC INR (0.9-1.1) APTT (24.1-38.0) SEC Potassium (3.3-5.1) mmol/l Carbon Dioxide 18 L (22-29) mmol/L BUN 4 L (9-16) mg/dL Random Glucose (60-115) mg/dL Lactic Acid 3.7 H* (0.5-2.0) mmol/L Calcium 7.0 L (8.4-10.2) mg/dL Total Bilirubin (0.0-1.0) mg/dL Direct Bilirubin (0.0-0.5) mg/dL AST (5-31) U/L Alkaline Phosphatase (39-117) U/L Ammonia (13-55) umol/L Lactate Dehydrogenase 283 H (122-220) U/L B-Natriuretic Peptide (<100) pg/mL Total Protein (6.5-8.0) g/dL Albumin 2.0 L (3.5-5.0) g/dL Urine Protein (NEG-TRACE) MG/DL Urine Glucose (UA) (NEG) MG/DL Urine Nitrite (NEG) Ur Leukocyte Esterase (NEG) Short CBC 10/02/20 10/03/20 Range/Units 18:45 03:36 WBC 17.7 H 15.9 H (4.8-10.8) X10*3/uL Hgb 7.9 L 7.6 L (12.0-16.0) g/dl Hct 24.3 L 23.3 L (37-47) % Plt Count 156 L 159 L (160-400) X10*3/uL BMP 10/02/20 10/03/20 18:45 03:36 Sodium 135 137 Potassium 2.7 L 3.3 D Chloride 103 107 Carbon Dioxide 18 L 18 L BUN 5 L 4 L Creatinine 0.69 0.70 Calcium 7.4 L 7.0 L Liver Function 10/02/20 10/03/20 Range/Units 18:45 03:36 Total Bilirubin 12.1 H (0.0-1.0) mg/dL Direct Bilirubin 9.0 H (0.0-0.5) mg/dL AST 100 H (5-31) U/L ALT 16 (0-31) U/L Alkaline Phosphatase 241 H (39-117) U/L Albumin 2.2 L 2.0 L (3.5-5.0) g/dL Urine 10/02/20 Range/Units 19:19 Urine Color PATO Urine Appearance HAZY Urine pH 6.5 (5.0-8.0) Ur Specific [place] 1.020 (1.005-1.025) Urine Protein 1+ H (NEG-TRACE) MG/DL Urine Glucose (UA) 100 H (NEG) MG/DL All other labs normal. Assessment and Plan (1) Colitis: Status: Acute patient presents with continuing abdominal pain now felt diffusely across her abdomen. I reviewed the CT which she was significant inflammation of the colon throughout the entire extent which is very suggestive of C diff colitis. This may also be anasarca related to her liver failure. Would suggest obtaining C diff titers to be complete. I will follow her during this hospital course.
--- NOTE | 2020-10-03 14:04 | CONS_ITS ---
DATE OF SERVICE: 10/03/2020 REFERRING PHYSICIAN: Jose Granados REASON FOR CONSULTATION: Cirrhosis. HISTORY OF PRESENT ILLNESS: The patient is a 30-year-old woman, who was admitted to the hospital on October 03 after presenting to the emergency room with complaints of abdominal pain. She has a history of alcoholic liver disease with cirrhosis and ascites as well as upper GI bleeding. She reports about 2 weeks of generalized abdominal pain. She states she has had diarrhea, but is vague on whether there has been any rectal bleeding. She denies any fevers, chills, nausea, or vomiting. PAST MEDICAL HISTORY: 1. Alcoholic liver disease with reported history of cirrhosis. She also has ascites and upper GI bleeding. 2. Anxiety/depression. 3. Gastric bypass surgery with history of anastomotic ulcer. 4. Cholecystectomy. 5. Hepatitis C. 6. NSVT. 7. Diabetes. 8. Portal hypertension. CURRENT MEDICATIONS: Her current medication list is reviewed in the chart. ALLERGIES: MULTIPLE ALLERGIES ARE REVIEWED. FAMILY HISTORY: This is reviewed in the electronic medical record. SOCIAL HISTORY: Alcohol abuse with last drink yesterday, the patient estimates she drinks up to 12 alcoholic drinks on a daily basis. REVIEW OF SYSTEMS: This is not reliably obtainable. PHYSICAL EXAMINATION: GENERAL: Shows a pleasant female. VITAL SIGNS: Reviewed in electronic medical records and are stable. SKIN: Mild icterus. HEENT: Multiple body piercings. NECK: Without lymphadenopathy or thyromegaly. LUNGS: Clear. HEART: Regular rate and rhythm. S1, S2. No murmur. ABDOMEN: Distended with ascites. Bowel sounds are present. There is diffuse tenderness to palpation. EXTREMITIES: Mild edema. LABORATORY DATA: Includes white blood cell count of 15.9, hematocrit 23.3. INR 1.7. Total bilirubin 12.1, AST 100, ALT 16. Peritoneal fluid shows no evidence of SBP. CT scanning has been obtained and reviewed. This is interpreted as showing marked wall thickening of the entire colon, slightly worsened since 09/09/2020. Liver evaluation is limited, but did show hepatomegaly. There was heterogeneity with multiple hypodense areas concerning for possible infection or abscesses. IMPRESSION: 1. Alcoholic hepatitis, cirrhosis and ascites.. 2. Abnormal CT scan of the colon. I recommend obtaining ultrasound imaging for further evaluation of the liver. Depending on these findings, she may need CT with contrast or MRI. She appears to have alcoholic hepatitis based on her liver profile and I discussed with her the need to avoid alcohol. The lft elevations could also be due to infection in the setting of colitis. Bowel wall edema can be seen in liver disease, and inflammatory or infectious etiology should be ruled out. I recommend obtaining stool studies including C diff, culture and sensitivity. Depending on her clinical course, she may benefit from flexible sigmoidoscopy. Thanks for asking me to see her. Dr. Katz will assume coverage tomorrow.. MD OCNNIE Aragon/SEA / [phone] MTDD
[2020-10-03] MEDS: PHENobarbitaL sodium 130 MG/ML VIAL 212 MG IM (15:00)
--- NOTE | 2020-10-03 19:11 | PC.NURSE ---
Pt requesting something for pain , ordered Oxycodone q12 prn. Gave per EMAR. Pt continued to request something for pain fatoumata barry MD notfied, no new orders, pt given hot pack. Pt tolerating full liquid diet.
[2020-10-03] MEDS: levoFLOXacin/D5W 500 MG/100 ML PIGGYBACK 100 MG IV (20:06)
[2020-10-03] MEDS: Mirtazapine 15 MG TABLET PO (20:08)
[2020-10-03] MEDS: traZODone HCL 50 MG TABLET PO (22:06)
[2020-10-04] VITALS (10 sets, daily range): BP systolic 90–112; BP diastolic 53–58; PULSE 100–113; RESP 18–20; TEMP 36.1–37.2; O2SAT 96–99
--- NOTE | 2020-10-04 | US_ITS ---
EXAMINATION: US ABDOMEN LIMITED CLINICAL INFORMATION: Abnormal CAT scan of the liver. Evaluate for liver abscess. COMPARISON: Previous CT of the abdomen and pelvis 10/02/2020 TECHNIQUE: Real-time imaging of the right upper quadrant. FINDINGS: PANCREAS: Not well visualized due to bowel gas LIVER: Liver echotexture is increased and slightly heterogeneous. The liver is nodular in contour suggestive of cirrhosis. No focal liver lesion is seen. There is no biliary duct dilatation. GALLBLADDER: Post cholecystectomy COMMON BILE DUCT: Not visualized. RIGHT KIDNEY: Normal. No hydronephrosis. No renal calculi or focal parenchymal lesions. The kidney measures 13 cm in maximum dimension. FREE FLUID: There is a small amount of ascites. US/US abdomen limited IMPRESSION: Cirrhotic-appearing liver. No focal liver lesion seen. Small amount of ascites.
--- NOTE | 2020-10-04 | ECG_ITS ---
Test Reason : CHEC QTC Blood Pressure : / mmHG Vent. Rate : 108 BPM Atrial Rate : 108 BPM P-R Int : 136 ms QRS Dur : 082 ms QT Int : 374 ms P-R-T Axes : 031 024 023 degrees QTc Int : 501 ms Sinus tachycardia Otherwise normal ECG When compared to the previous EKG of No significant changes seen Referred By: Danial Sanders Electronically Signed By:ESPERANZA ASKEW MD
[2020-10-04] MEDS: 0.9 % Sodium Chloride Flush 3 ML SYRINGE IVFLUSH ×3 (00:24→15:42)
[2020-10-04] MEDS: cefTRIAXone sodium 1 GM in 0.9 % Sodium Chloride 50 ML IV (00:34)
[2020-10-04] MEDS: metroNIDAZOLE/NS 500 MG/100 ML PIGGYBACK 100 MG IV ×2 (06:19→14:08)
[2020-10-04 06:32] LABS: MANUAL DIFF FLAG NO
[2020-10-04 06:47] LABS: Basophils Absolute Auto 0.1 X10*3/uL (0.0-0.2); Basophils Percent Auto 0.4 % (0-2); Eosinophils Absolute Auto 0.1 X10*3/uL (0.0-0.4); Eosinophils Percent Auto 0.8 % (0-4); Imm Gran Pct Auto 0.7 % (0.0-0.4); Lymphocytes Absolute Auto 1.7 X10*3/uL (1.2-4.9); Mean Corpuscular HGB Conc 32.7 g/dl (31.0-35.0); Mean Corpuscular Hemoglobin 37.4 pg (27.0-33.0); Mean Platelet Volume 9.6 fL (9.4-12.3); Monocytes Absolute Auto 1.1 X10*3/uL (0.1-1.2); Monocytes Percent Auto 7.4 % (2-11); Neutrophils Absolute Auto 11.2 X10*3/uL (2.0-8.3); Neutrophils Percent Auto 78.7 % (45-73); Platelet Count 133 X10*3/uL (160-400); Red Blood Count 1.74 X10*6/uL (4.20-5.50); White Blood Count 14.2 X10*3/uL (4.8-10.8)
[2020-10-04 06:58] LABS: Alanine Aminotransferase 11 U/L (0-31); Albumin Level 1.6 g/dL (3.5-5.0); Alkaline Phosphatase 176 U/L (39-117); Anion Gap 11 (12-20); Aspartate Amino Transferase 79 U/L (5-31); Bilirubin Direct 7.5 mg/dL (0.0-0.5); Bilirubin Total 9.8 mg/dL (0.0-1.0); Blood Urea Nitrogen 3 mg/dL (9-16); Calcium 6.9 mg/dL (8.4-10.2); Carbon Dioxide 20 mmol/L (22-29); Chloride 106 mmol/L (96-108); Creatinine Clr Calc Pharmacy 125.5; Estimated Glomerular Filt Rate > 60; Glucose Fasting 78 mg/dL (60-99); INTERNATIONAL NORM RATIO 2.2 (0.9-1.1); Potassium 2.9 mmol/l (3.3-5.1); Prothrombin Time 26.6 SEC (10.8-13.0); Sodium 134 mmol/L (135-145); Total Protein 4.8 g/dL (6.5-8.0)
[2020-10-04 07:14] LABS: Mean Corpuscular Volume 114.4 fL (80-98)
[2020-10-04 07:16] LABS: Hematocrit 19.9 % (37-47); Hemoglobin 6.5 g/dl (12.0-16.0)
[2020-10-04] MEDS: Potassium Chloride ER 20 MEQ TAB.ER.PRT 60 MEQ PO (08:06)
[2020-10-04] MEDS: Nicotine 21 MG PATCH.TD24 TRANSDERMA (08:07)
[2020-10-04] MEDS: Midodrine HCl 5 MG TABLET PO ×3 (08:07→21:50)
--- NOTE | 2020-10-04 09:07 | P.CDIC_ITS ---
CDI Concurrent Query Service Date: 10/04/20 Documentation Clarification: Please clarify if you are treating a proba ble/suspected/likely or confirmed: Specifics: Septic encephalopathy Metabolic and/or toxic encephalopathy Please specify if known Unclear, work up in progress Provider Response: Other Other Diagnosis: work up in progress PLEASE DO NOT DELETE/MODIFY EXISTING CONTENT Additional information is needed in order to code to the highest accuracy and appropriate Severity of Illness (SOI). Please clarify the information noted below in your progress notes and discharge summary. Risk Factors/Clinical Indicators/Treatments Course: Sepsis, severe sepsis with acute organ dysfunction, type: encephalopathy. ED: Course narrative: metabolic encephalopathy CDS: Pari Eddy CCS, CDIS Contact Number: [phone] Please Review the information above and exercise your independent professional judgment in responding to the query. If you concur, pleas document in the PROGRESS NOTES and DISCHARGE SUMMARY. If you do not agree with the query, please document in the query above. THIS QUERY IS PART OF THE PERMANENT MEDICAL RECORD
[2020-10-04] MEDS: PHENobarbitaL 15 MG TABLET 45 MG PO ×2 (09:26→21:50)
[2020-10-04] MEDS: oxyCODONE HCl Immed Release 5 MG TABLET PO ×3 (10:17→18:39)
[2020-10-04 11:49] LABS: CDIFF Ag Negative (Negative); CDiff Toxin Negative (Negative)
[2020-10-04 11:50] LABS: CDIFF Internal ctrl Dots and bkg OK (V)
--- NOTE | 2020-10-04 12:15 | HO.PM.IMPN ---
Subjective Subjective Date of Service: 10/04/20 Interval History: seen and examined this AM reports generalized aches and pains -- arms and legs as well as abdomen General - no fevers or chills Cardiovascular - no chest pain Respiratory - no shortness of breath or cough Abdominal- pain and nausea Physical Exam Vital Signs: Vital Signs: Last Vital Signs Temp 98.8 F 10/04/20 11:55 Pulse 105 H 10/04/20 11:55 Resp 20 10/04/20 11:55 BP 102/58 L 10/04/20 11:55 Pulse Ox 96 10/04/20 11:55 Body Mass Index 0.0 General - no acute distress, appears comfortable Cardiovascular - regular rate and rhythm, S1-S2 Lungs - normal respiratory effort, clear to auscultation bilaterally, no wheezing Abdomen - tender without rebounding or guarding Extremities - no edema bilaterally Neuro - awake and alert, no focal deficits Objective Data Current Medications Generic Name Dose Route Start Last Admin Trade Name Freq PRN Reason Stop Dose Admin Ceftriaxone Sodium 1 gm/ 50 mls @ 100 mls/hr 10/03/20 01:00 10/04/20 01:31 Sodium Chloride IV Infused Q24H ALTHEA Infusion Metronidazole 500 mg in 100 mls @ 100 mls/hr 10/03/20 06:00 10/04/20 07:34 Flagyl IV Infused Q8H ALTHEA Infusion Medication 1 each 10/03/20 09:00 No Benzodiazepines MISCELLANE DAILY ALTHEA Midodrine 5 mg 10/03/20 09:00 10/04/20 08:07 Midodrine Hcl 5 Mg Tablet PO 5 mg TID ALTHEA Administration Mirtazapine 15 mg 10/03/20 21:00 10/03/20 20:08 Mirtazapine 15 Mg Tablet PO 15 mg BEDTIME ALTHEA Administration Nicotine 21 mg 10/03/20 09:00 10/04/20 08:07 Nicotine 21 Mg Patch.Td24 TRANSDERMA 21 mg DAILY ALTHEA Administration Omeprazole 20 mg 10/03/20 06:30 10/04/20 06:23 Omeprazole 20 Mg Capsule.Dr PO Not Given BID@0630,1630 ALTHEA Oxycodone HCl 5 mg 10/04/20 10:05 10/04/20 10:17 Oxycodone Hcl Immed Release 5 Mg Tablet PO 5 mg Q6H PRN Administration pain Phenobarbital 45 mg 10/03/20 09:00 10/04/20 09:26 Phenobarbital 15 Mg Tablet PO 10/04/20 21:01 45 mg BID [facility] Administration Protocol Phenobarbital 15 mg 10/05/20 09:00 Phenobarbital 15 Mg Tablet PO 10/06/20 21:01 BID [facility] Protocol Phenobarbital 15 mg 10/07/20 09:00 Phenobarbital 15 Mg Tablet PO 10/08/20 09:01 DAILY [facility] Protocol Sodium Chloride 3 ml 10/03/20 08:00 10/04/20 08:08 0.9 % Sodium Chloride Flush 3 Ml Syringe IVFLUSH 3 ml QSHIFT [facility] Administration Trazodone HCl 50 mg 10/03/20 21:00 10/03/20 22:06 Trazodone Hcl 50 Mg Tablet PO 50 mg BEDTIME [facility] Administration Labs CBC & Chem 7: 10/04/20 06:04 10/04/20 06:04 Microbiology Microbiology Results: Microbiology 10/02/20 19:29 Urine clean catch - Clean Catch Midstream Urine Culture - Final No growth. 10/02/20 21:28 Abdominal Fluid Gram Stain - Final 10/02/20 21:28 Abdominal Fluid Routine Culture - Preliminary No growth to date. 10/02/20 21:25 Blood - Venous Blood Culture - Preliminary No growth after 24 hours. 10/02/20 20:27 Blood - Venous Blood Culture - Preliminary No growth after 24 hours. Assessment and Plan (1) Ascites: Status: Acute Assessment and Plan: This is a 30 yo F with a history of alcohol abuse and dependence with its associated complications who has a history of multiple hospitalizations and subsequently leaving [facility] who is admitted to the hospital for: 1. ? colitis empiric antibiotics for now GI evaluation -- d/w Dr. Ohara, plan for EGD/Colonoscopy once she has been optimized (has multiple electrolyte abnormalities) f/u cultures 2. Alcohol liver disease / ascites / alcohol dependence and withdrawal negative for spb by cultures / cell count ultrasound completed today boss snot show any concern for liver abscess / lesions phenobarb per protocol 3. Acute on chronic blood loss anemia due to gi bleed hemodynamically stable transfuse 1 unit prbc - trend h/h 4. Multiple electrolyte abnormalities replete with IV and PO monitor closely Full Code DVT pptx, mechanical due to acute blood loss anemia
[2020-10-04 13:24] LABS: Magnesium 1.8 mg/dL (1.6-2.6)
--- NOTE | 2020-10-04 14:13 | P.PNGI_ITS ---
Subjective Subjective Date of Service: 10/04/20 Interval History: c/o whole body pain, general malaise, poor appetite and fatigue getting transfused Physical Exam Vital Signs: Vital Signs: Last Vital Signs Temp 98.8 F 10/04/20 11:55 Pulse 105 H 10/04/20 11:55 Resp 20 10/04/20 11:55 BP 102/58 L 10/04/20 11:55 Pulse Ox 96 10/04/20 11:55 Body Mass Index 0.0 Const: General: ill appearing and lethargic Nutritional Appearance: thin Orientation/consciousness: oriented to person, oriented to place, oriented to time and lethargic Eyes: Sclerae: scleral abnormal bilateral Resp: Effort & Inspection: normal respiratory effort Auscultation: clear to auscultation bilaterally Cardio: Jugular venous distension: no JVD Palpation: normal PMI Rate: regular rate Rhythm: regular rhythm GI: Inspection: Yes distended Palpation (GI): no hernias and Ascites pr esent Percussion: Yes dullness to percussion Auscultation: normal bowel sounds Neuro: General: oriented to person, oriented to place and oriented to time Extrem: General: Yes normal to inspection Objective Data Labs CBC & Chem 7: 10/04/20 06:04 10/04/20 06:04 Labs: Laboratory Results - last 24 hr 10/04/20 10/04/20 10/04/20 06:04 06:04 06:04 WBC 14.2 H RBC 1.74 L Hgb 6.5 L* Hct 19.9 L* MCV 114.4 H MCH 37.4 H MCHC 32.7 RDW 21.0 H Plt Count 133 L MPV 9.6 Immature Gran % (Auto) 0.7 H Neut % (Auto) 78.7 H Lymph % (Auto) 12.0 L [place] % (Auto) 7.4 Eos % (Auto) 0.8 Baso % (Auto) 0.4 Lymph # (Auto) 1.7 [place] # (Auto) 1.1 Eos # (Auto) 0.1 Baso # (Auto) 0.1 Abs Immat Gran (auto) 0.10 H Absolute Neuts (auto) 11.2 H Absolute Nucleated RBC 0.000 Nucleated RBC % (auto) 0.0 PT 26.6 H D INR 2.2 H Sodium 134 L Potassium 2.9 L Chloride 106 Carbon Dioxide 20 L Anion Gap 11 L BUN 3 L Creatinine 0.61 Estim Creat Clear Calc 125.5 Estimated GFR > 60 Fasting Glucose 78 Calcium 6.9 L Magnesium 1.8 Total Bilirubin 9.8 H Direct Bilirubin 7.5 H AST 79 H ALT 11 Alkaline Phosphatase 176 H D Total Protein 4.8 L Albumin 1.6 L C. difficile Toxin A&B C. difficile Antigen C. difficile Interpret Blood Type Antibody Screen Crossmatch 10/04/20 10/04/20 08:03 Unknown WBC RBC Hgb Hct MCV MCH MCHC RDW Plt Count MPV Immature Gran % (Auto) Neut % (Auto) Lymph % (Auto) [place] % (Auto) Eos % (Auto) Baso % (Auto) Lymph # (Auto) [place] # (Auto) Eos # (Auto) Baso # (Auto) Abs Immat Gran (auto) Absolute Neuts (auto) Absolute Nucleated RBC Nucleated RBC % (auto) PT INR Sodium Potassium Chloride Carbon Dioxide Anion Gap BUN Creatinine Estim Creat Clear Calc Estimated GFR Fasting Glucose Calcium Magnesium Total Bilirubin Direct Bilirubin AST ALT Alkaline Phosphatase Total Protein Albumin C. difficile Toxin A&B Negative C. difficile Antigen Negative C. difficile Interpret SEE NOTE Blood Type O Negative Antibody Screen NEGATIVE Crossmatch See Detail Microbiology Microbiology Results: Microbiology 10/02/20 19:29 Urine clean catch - Clean Catch Midstream Urine Culture - Final No growth. 10/02/20 21:28 Abdominal Fluid Gram Stain - Final 10/02/20 21:28 Abdominal Fluid Routine Culture - Preliminary No growth to date. 10/02/20 21:25 Blood - Venous Blood Culture - Preliminary No growth after 24 hours. 10/02/20 20:27 Blood - Venous Blood Culture - Preliminary No growth after 24 hours. Progress Note: A&P Assessment and plan (1) Acute alcoholic hepatitis: Status: Acute (2) Colitis: Status: Acute (3) Anemia: Status: Acute Assessment and Plan: 1/ Acute on chronic decompensated liver falure due to ongoing alcohol abuse 2/ Anemia, multifactorial from malnutrition, alcohol abuse, blood loss anemia, and spelnic sequestration, possible ulceration given prior hx 3/ diarrhea, from low albumin prob giving appearance of colitis on imaging PLAN: 1/ optimize lytes, inlc K, MG, Ca, check Zinc and replenish, multivitamins 2/ PPI pantoprazole 40 mg bid IV if possible 3/ nutriton assessment and support with high protein diet 4/ consider psych consult for alcohol abuse 5/ EGD, possible colonoscopy once medically stabilized and out of DT. and transfused, aim for HGB targe 9 /dl 6/ watch out for worsening mentation in case of hepatic encephaloapthy, can use rifaximin 7/ ascites, neg tap few days back, no evidence of SBP--cont to monitor 8/ hold on prednisone for the moment Fall Risk Details Current Medications: Current Medications Generic Name Dose Route Start Last Admin Trade Name Freq PRN Reason Stop Dose Admin Ceftriaxone Sodium 1 gm/ 50 mls @ 100 mls/hr 10/03/20 01:00 10/04/20 01:31 Sodium Chloride IV Infused Q24H ALTHEA Infusion Metronidazole 500 mg in 100 mls @ 100 mls/hr 10/03/20 06:00 10/04/20 14:08 Flagyl IV 100 mls/hr Q8H ALTHEA Administration Medication 1 each 10/03/20 09:00 No Benzodiazepines MISCELLANE DAILY ALTHEA Midodrine 5 mg 10/03/20 09:00 10/04/20 14:08 Midodrine Hcl 5 Mg Tablet PO 5 mg TID ALTHEA Administration Mirtazapine 15 mg 10/03/20 21:00 10/03/20 20:08 Mirtazapine 15 Mg Tablet PO 15 mg BEDTIME ALTHEA Administration Nicotine 21 mg 10/03/20 09:00 10/04/20 08:07 Nicotine 21 Mg Patch.Td24 TRANSDERMA 21 mg DAILY ALTHEA Administration Omeprazole 20 mg 10/03/20 06:30 10/04/20 06:23 Omeprazole 20 Mg Capsule.Dr BRUNNER Not Given BID@0630,1630 ALTHEA Oxycodone HCl 5 mg 10/04/20 10:05 10/04/20 10:17 Oxycodone Hcl Immed Release 5 Mg Tablet PO 5 mg Q6H PRN Administration pain Phenobarbital 45 mg 10/03/20 09:00 10/04/20 09:26 Phenobarbital 15 Mg Tablet PO 10/04/20 21:01 45 mg BID ALTHEA Administration Protocol Phenobarbital 15 mg 10/05/20 09:00 Phenobarbital 15 Mg Tablet PO 10/06/20 21:01 BID ALTHEA Protocol Phenobarbital 15 mg 10/07/20 09:00 Phenobarbital 15 Mg Tablet PO 10/08/20 09:01 DAILY ALTHEA Protocol Sodium Chloride 3 ml 10/03/20 08:00 10/04/20 08:08 0.9 % Sodium Chloride Flush 3 Ml Syringe IVFLUSH 3 ml QSHIFT ALTHEA Administration Trazodone HCl 50 mg 10/03/20 21:00 10/03/20 22:06 Trazodone Hcl 50 Mg Tablet PO 50 mg BEDTIME ALTHEA Administration Time Spent With Patient Time: Total time spent is greater than 50% in coordination of care (as documented) at patient's floor/unit and/or counseling patient: Time with patient: 15 - 24 minutes
[2020-10-04] MEDS: Omeprazole 20 MG CAPSULE.DR PO (15:59)
--- NOTE | 2020-10-04 16:08 | W.PM.IDCN ---
History of Present Illness Data of Consult Service Date: 10/04/20 Requesting physician: Danial Sanders Primary Care Provider: Wilder LANDRUM Reason for consult: possible infection She presents with abdominal discomfort 06/14 She has no nausea or vomiting or diarrhea She has discomfort for a day Review of Systems Constitutional: Constitutional: Denies headache(s) ENT: Denies dizziness and Denies headache(s) Musculoskeletal: Musculoskeletal: Denies numbness Neurologic: Denies confusion, Denies dizziness, Denies headache(s) and Denies numbness Psychiatric: Psychiatric: Denies confusion [facility] Past Medical History Medical History Acute GI bleeding Acute metabolic encephalopathy Alcoholic cirrhosis of liver Asthma CHF (congestive heart failure) Chiari malformation CVA (cerebral vascular accident) Depression Depression with anxiety GI bleed Hemorrhoids Hepatitis C Hypokalemia NSVT (nonsustained ventricular tachycardia) Orthostatic hypotension Peptic ulcer disease Seizures Functional capacity: independent ambulation Surgical History Surgical History Gastric bypass status for obesity Hx of cholecystectomy Social History Social History Household Members: Family Housing: Apartment Alcohol intake: current Alcohol intake frequency: 3 or more drinks per day Alcohol type: hard liquor Smoking Status: Current every day smoker Tobacco Type: Cigarette Cigarettes Per Day: 0.5 Years Smoked: 12 Second Hand Smoke Exposure: No service: No Current occupational status: unemployed Meds Allergies Allergy/AdvReac Type Severity Reaction Status Date / Time morphine [MORPHINE] Allergy Mild HIVES Verified 10/02/20 16:21 banana [BANANA] AdvReac Severe DIFFICULTY Verified 10/02/20 16:21 BREATHING morphine and related Allergy Unknown Hives Uncoded 09/12/20 17:13 Home Medications Medication Instructions Recorded Confirmed Type mirtazapine 1 tab SUBLINGUAL BEDTIME 09/09/20 10/02/20 History ferrous sulfate 5 ml PO DAILY 10/02/20 10/02/20 History omeprazole 1 cap PO BID 10/02/20 10/02/20 History Physical Exam Vital Signs: Vital Signs: Last Vital Signs Temp 97.0 F 10/04/20 15:54 Pulse 100 10/04/20 15:54 Resp 19 10/04/20 15:54 BP 109/58 L 10/04/20 15:54 Pulse Ox 99 10/04/20 15:54 Body Mass Index 0.0 Const: General: No confusion Orientation/consciousness: oriented to person, oriented to place, oriented to time and No confusion HENMT: Head: Yes normal to inspection Eyes: General: appearance normal, both eyes and all related structures Resp: Effort & Inspection: normal respiratory effort Cardio: Rate: regular rate Rhythm: regular rhythm GI: Inspection: Yes normal to inspection Palpation (GI): nontender Skin: General skin exam: no rashes or lesions noted Neuro: General: oriented to person, oriented to place, oriented to time and No confusion Assessment and Plan (1) Acute alcoholic hepatitis: Problem details: She has some ascites,concern SBP I dont see any acute infectious colitis,no Cdiff seen Status: Acute Would continue Ceftriaxone 5-7 days Stop Flagyl (2) Ascites: Qualifiers: Ascites type: due to alcoholic cirrhosis Qualified Code(s): K70.31 - Alcoholic cirrhosis of liver with ascites Status: Acute Results Labs CBC & Chem 7: 10/04/20 06:04 10/04/20 06:04 Labs: Short CBC 10/04/20 Range/Units 06:04 WBC 14.2 H (4.8-10.8) X10*3/uL Hgb 6.5 L* (12.0-16.0) g/dl Hct 19.9 L* (37-47) % Plt Count 133 L (160-400) X10*3/uL BMP 10/04/20 06:04 Sodium 134 L Potassium 2.9 L Chloride 106 Carbon Dioxide 20 L BUN 3 L Creatinine 0.61 Calcium 6.9 L Liver Function 10/04/20 Range/Units 06:04 Total Bilirubin 9.8 H (0.0-1.0) mg/dL Direct Bilirubin 7.5 H (0.0-0.5) mg/dL AST 79 H (5-31) U/L ALT 11 (0-31) U/L Alkaline Phosphatase 176 H D (39-117) U/L Albumin 1.6 L (3.5-5.0) g/dL Microbiology Microbiology Results: Microbiology 10/02/20 19:29 Urine clean catch - Clean Catch Midstream Urine Culture - Final No growth. 10/02/20 21:28 Abdominal Fluid Gram Stain - Final 10/02/20 21:28 Abdominal Fluid Routine Culture - Preliminary No growth to date. 10/02/20 21:25 Blood - Venous Blood Culture - Preliminary No growth after 24 hours. 10/02/20 20:27 Blood - Venous Blood Culture - Preliminary No growth after 24 hours.
[2020-10-04 17:19] LABS: Hematocrit 25.3 % (37-47); Hemoglobin 8.3 g/dl (12.0-16.0); Mean Corpuscular HGB Conc 32.8 g/dl (31.0-35.0); Mean Corpuscular Hemoglobin 37.1 pg (27.0-33.0); Mean Platelet Volume 9.2 fL (9.4-12.3); Platelet Count 131 X10*3/uL (160-400); Red Blood Count 2.24 X10*6/uL (4.20-5.50); Red Cell Distribution Width 23.6 % (11.0-16.0); White Blood Count 14.6 X10*3/uL (4.8-10.8)
[2020-10-04 17:21] LABS: Mean Corpuscular Volume 112.9 fL (80-98)
[2020-10-04 17:51] LABS: Anion Gap 10 (12-20); Blood Urea Nitrogen 3 mg/dL (9-16); Calcium 6.9 mg/dL (8.4-10.2); Carbon Dioxide 21 mmol/L (22-29); Chloride 106 mmol/L (96-108); Creatinine Clr Calc Pharmacy 121.5; Estimated Glomerular Filt Rate > 60; Glucose Random 101 mg/dL (60-115); Potassium 3.6 mmol/l (3.3-5.1); Sodium 133 mmol/L (135-145)
[2020-10-04] MEDS: traZODone HCL 50 MG TABLET PO (21:50)
[2020-10-04] MEDS: oxyCODONE HCl Immed Release 5 MG TABLET 10 MG PO (21:50)
[2020-10-04] MEDS: Mirtazapine 15 MG TABLET PO (22:00)
[2020-10-05] VITALS (7 sets, daily range): BP systolic 93–112; BP diastolic 50–59; PULSE 107–120; RESP 18–20; TEMP 36.9–37.4; O2SAT 94–98
[2020-10-05] MEDS: 0.9 % Sodium Chloride Flush 3 ML SYRINGE IVFLUSH ×2 (00:04→08:43)
[2020-10-05] MEDS: cefTRIAXone sodium 1 GM in 0.9 % Sodium Chloride 50 ML IV (00:05)
[2020-10-05] MEDS: oxyCODONE HCl Immed Release 5 MG TABLET 10 MG PO ×4 (03:13→19:06)
[2020-10-05 07:23] LABS: Hematocrit 22.4 % (37-47); Hemoglobin 7.5 g/dl (12.0-16.0); Mean Corpuscular HGB Conc 33.5 g/dl (31.0-35.0); Mean Corpuscular Hemoglobin 37.5 pg (27.0-33.0); Mean Platelet Volume 9.3 fL (9.4-12.3); Platelet Count 130 X10*3/uL (160-400); Red Cell Distribution Width 23.2 % (11.0-16.0); White Blood Count 16.8 X10*3/uL (4.8-10.8)
[2020-10-05 08:08] LABS: Alanine Aminotransferase 11 U/L (0-31); Alkaline Phosphatase 182 U/L (39-117); Aspartate Amino Transferase 73 U/L (5-31); Bilirubin Direct 9.3 mg/dL (0.0-0.5); Bilirubin Total 12.7 mg/dL (0.0-1.0); Blood Urea Nitrogen 3 mg/dL (9-16); Creatinine Clr Calc Pharmacy 121.5; Estimated Glomerular Filt Rate > 60; Glucose Random 62 mg/dL (60-115); Total Protein 4.9 g/dL (6.5-8.0)
[2020-10-05 08:20] LABS: Albumin Level 1.8 g/dL (3.5-5.0); Anion Gap 11 (12-20); Calcium 7.1 mg/dL (8.4-10.2); Carbon Dioxide 18 mmol/L (22-29); Chloride 103 mmol/L (96-108); Potassium 3.4 mmol/l (3.3-5.1); Sodium 129 mmol/L (135-145)
--- NOTE | 2020-10-05 08:21 | PM.PNGS ---
Subjective Subjective Date of Service: 10/05/20 Interval history: Continued diffuse abdominal pain, awaiting paracentesis this morning. Physical Exam Vital Signs: Vital Signs: Last Vital Signs Temp 99.2 F 10/05/20 08:00 Pulse 112 H 10/05/20 08:00 Resp 20 10/05/20 08:00 BP 100/50 L 10/05/20 08:00 Pulse Ox 94 10/05/20 08:00 Body Mass Index 0.0 Const: Other: Awake and talking uncomfortable Eyes: Other: scleral icterus Resp: Other: breathing comfortably on room air, no respiratory distress GI: Other: abdomen distended, abdominal wall edematous, no rebound or guarding, tender to deep palpation. Skin: Other: Jaundice, warm and dry Extrem: Other: peripheral edema Progress Note: A&P Assessment and plan (1) Colitis: Status: Acute Assessment and Plan: diffuse colitis with negative C diff titre; seems to be related to the anasarca associated with her liver failure. Radiologic procedures schedule for today. Will continue to monitor. Fall Risk Details Current Medications: Current Medications Generic Name Dose Route Start Last Admin Trade Name Freq PRN Reason Stop Dose Admin Ceftriaxone Sodium 1 gm/ 50 mls @ 100 mls/hr 10/03/20 01:00 10/05/20 06:02 Sodium Chloride IV Infused Q24H ALTHEA Infusion Medication 1 each 10/03/20 09:00 No Benzodiazepines MISCELLANE DAILY ALTHEA Midodrine 5 mg 10/03/20 09:00 10/04/20 21:50 Midodrine Hcl 5 Mg Tablet PO 5 mg TID ALTHEA Administration Mirtazapine 15 mg 10/03/20 21:00 10/04/20 22:00 Mirtazapine 15 Mg Tablet PO 15 mg BEDTIME ALTHEA Administration Nicotine 21 mg 10/03/20 09:00 10/04/20 08:07 Nicotine 21 Mg Patch.Td24 TRANSDERMA 21 mg DAILY ALTHEA Administration Omeprazole 20 mg 10/03/20 06:30 10/05/20 06:44 Omeprazole 20 Mg Capsule.Dr PO Not Given BID@0630,5580 ALTHEA Oxycodone HCl 10 mg 10/04/20 18:27 10/05/20 06:53 Oxycodone Hcl Immed Release 5 Mg Tablet PO 10 mg Q6H PRN Administration Pain, Severe (Pain Scale 7-10) Phenobarbital 15 mg 10/05/20 09:00 Phenobarbital 15 Mg Tablet PO 10/06/20 21:01 BID ALTHEA Protocol Phenobarbital 15 mg 10/07/20 09:00 Phenobarbital 15 Mg Tablet PO 10/08/20 09:01 DAILY ALTHEA Protocol Sodium Chloride 3 ml 10/03/20 08:00 10/05/20 00:04 0.9 % Sodium Chloride Flush 3 Ml Syringe IVFLUSH 3 ml QSHIFT ALTHEA Administration Trazodone HCl 50 mg 10/03/20 21:00 10/04/20 21:50 Trazodone Hcl 50 Mg Tablet PO 50 mg BEDTIME ALTHEA Administration Time Spent With Patient Time: Total time spent is greater than 50% in coordination of care (as documented) at patient's floor/unit and/or counseling patient: Time with patient: 15 - 24 minutes
[2020-10-05] MEDS: Nicotine 21 MG PATCH.TD24 TRANSDERMA (08:41)
[2020-10-05] MEDS: Midodrine HCl 5 MG TABLET PO ×3 (08:41→21:46)
[2020-10-05] MEDS: PHENobarbitaL 15 MG TABLET PO ×2 (08:41→21:45)
[2020-10-05 08:53] LABS: Magnesium 1.6 mg/dL (1.6-2.6)
--- NOTE | 2020-10-05 14:20 | P.PNIM_ITS ---
Subjective Subjective Date of Service: 10/05/20 Interval History: seen and examined no new complaints willing to stay in the hospital for her scopes tomorrow Physical Exam Vital Signs: Vital Signs: Last Vital Signs Temp 98.7 F 10/05/20 12:05 Pulse 112 H 10/05/20 12:05 Resp 20 10/05/20 12:05 BP 93/54 L 10/05/20 12:05 Pulse Ox 95 10/05/20 12:05 Body Mass Index 0.0 Const: Other: General - no acute distress, appears comfortable Cardiovascular - regular rate and rhythm, S1-S2 Lungs - normal respiratory effort, clear to auscultation bilaterally, no wheezing Abdomen - tender without rebounding or guarding -- chronic Extremities - no edema bilaterally Neuro - awake and alert, no focal deficits Objective Data Current Medications Generic Name Dose Route Start Last Admin Trade Name Freq PRN Reason Stop Dose Admin Ceftriaxone Sodium 1 gm/ 50 mls @ 100 mls/hr 10/03/20 01:00 10/05/20 06:02 Sodium Chloride IV Infused Q24H ALTHEA Infusion Medication 1 each 10/03/20 09:00 No Benzodiazepines MISCELLANE DAILY ALTHEA Midodrine 5 mg 10/03/20 09:00 10/05/20 13:39 Midodrine Hcl 5 Mg Tablet PO 5 mg TID ALTHEA Administration Mirtazapine 15 mg 10/03/20 21:00 10/04/20 22:00 Mirtazapine 15 Mg Tablet PO 15 mg BEDTIME ALTHEA Administration Nicotine 21 mg 10/03/20 09:00 10/05/20 08:41 Nicotine 21 Mg Patch.Td24 TRANSDERMA 21 mg DAILY ALTHEA Administration Omeprazole 20 mg 10/03/20 06:30 10/05/20 06:44 Omeprazole 20 Mg Capsule. PO Not Given BID@0630,1630 ALTHEA Oxycodone HCl 10 mg 10/04/20 18:27 10/05/20 12:34 Oxycodone Hcl Immed Release 5 Mg Tablet PO 10 mg Q6H PRN Administration Pain, Severe (Pain Scale 7-10) Phenobarbital 15 mg 10/05/20 09:00 10/05/20 08:41 Phenobarbital 15 Mg Tablet PO 10/06/20 21:01 15 mg BID ALTHEA Administration Protocol Phenobarbital 15 mg 10/07/20 09:00 Phenobarbital 15 Mg Tablet PO 10/08/20 09:01 DAILY [facility] Protocol Sodium Chloride 3 ml 10/03/20 08:00 10/05/20 08:43 0.9 % Sodium Chloride Flush 3 Ml Syringe IVFLUSH 3 ml QSHIFT ALTHEA Administration Trazodone HCl 50 mg 10/03/20 21:00 10/04/20 21:50 Trazodone Hcl 50 Mg Tablet PO 50 mg BEDTIME ALTHEA Administration Labs CBC & Chem 7: 10/05/20 06:33 10/05/20 06:33 Microbiology Microbiology Results: Microbiology 10/02/20 21:28 Abdominal Fluid Gram Stain - Final 10/02/20 21:28 Abdominal Fluid Routine Culture - Final No growth after 2 days 10/02/20 21:25 Blood - Venous Blood Culture - Preliminary No growth after 48 hours. 10/02/20 20:27 Blood - Venous Blood Culture - Preliminary No growth after 48 hours. 10/02/20 19:29 Urine clean catch - Clean Catch Midstream Urine Culture - Final No growth. Assessment and Plan (1) Ascites: Status: Acute Assessment and Plan: This is a 30 yo F with a history of alcohol abuse and dependence with its associated complications who has a history of multiple hospitalizations and subsequently leaving [place] who is admitted to the hospital for: 1. Abdominal pain scopes tomorrow continue PPI repeat ultrasound yesterday without much ascites f/u cultures 2. Alcohol liver disease / ascites / alcohol dependence and withdrawal negative for spb by cultures / cell count phenobarb per protocol 3. Acute on chronic blood loss anemia h/h decreased again this AM recheck now, transfuse below 7 no juliette bleeding 4. Multiple electrolyte abnormalities improved with IV/PO, continue monitoring Full Code DVT pptx, mechanical due to acute blood loss anemia
[2020-10-05] MEDS: Magnesium Sulfate/H2O 2 GM/50 ML PIGGYBACK IV (14:55)
[2020-10-05 15:36] LABS: Hematocrit 23.5 % (37-47); Hemoglobin 7.7 g/dl (12.0-16.0)
[2020-10-05] MEDS: Omeprazole 20 MG CAPSULE.DR PO (16:26)
[2020-10-05] MEDS: hydrOXYzine HCL 25 MG TABLET PO (18:15)
[2020-10-05] MEDS: Mirtazapine 15 MG TABLET PO (21:46)
[2020-10-05] MEDS: traZODone HCL 50 MG TABLET PO (21:46)
[2020-10-06] VITALS (10 sets, daily range): BP systolic 83–115; BP diastolic 32–63; PULSE 100–112; RESP 16–22; TEMP 36.1–37.2; O2SAT 96–99; BMI 20.9
[2020-10-06] MEDS: cefTRIAXone sodium 1 GM in 0.9 % Sodium Chloride 50 ML IV (00:40)
[2020-10-06] MEDS: 0.9 % Sodium Chloride Flush 3 ML SYRINGE IVFLUSH ×3 (00:41→18:04)
[2020-10-06] MEDS: oxyCODONE HCl Immed Release 5 MG TABLET 10 MG PO ×4 (01:10→21:18)
[2020-10-06] MEDS: hydrOXYzine HCL 25 MG TABLET PO ×2 (01:10→10:27)
[2020-10-06] MEDS: Nicotine 21 MG PATCH.TD24 TRANSDERMA (08:47)
[2020-10-06] MEDS: Midodrine HCl 5 MG TABLET PO ×3 (08:47→21:18)
[2020-10-06] MEDS: PHENobarbitaL 15 MG TABLET PO ×2 (08:47→21:17)
[2020-10-06] MEDS: Omeprazole 20 MG CAPSULE.DR PO ×2 (09:54→18:03)
[2020-10-06] MEDS: Sodium Phosphate,Mono-Dibasic 133 ML ENEMA PR (09:54)
[2020-10-06] MEDS: LORazepam 2 MG/ML VIAL 0.25 MG IVPUSH (09:54)
[2020-10-06 10:43] LABS: Hematocrit 25.7 % (37-47); Hemoglobin 8.5 g/dl (12.0-16.0); Mean Corpuscular HGB Conc 33.1 g/dl (31.0-35.0); Mean Corpuscular Hemoglobin 37.3 pg (27.0-33.0); Platelet Count 128 X10*3/uL (160-400); Red Blood Count 2.28 X10*6/uL (4.20-5.50); White Blood Count 16.2 X10*3/uL (4.8-10.8)
[2020-10-06 10:44] LABS: Mean Corpuscular Volume 112.7 fL (80-98)
[2020-10-06 11:08] LABS: Anion Gap 12 (12-20); Blood Urea Nitrogen 4 mg/dL (9-16); Calcium 7.4 mg/dL (8.4-10.2); Carbon Dioxide 20 mmol/L (22-29); Chloride 102 mmol/L (96-108); Creatinine Clr Calc Pharmacy 114.2; Estimated Glomerular Filt Rate > 60; Glucose Random 77 mg/dL (60-115); Potassium 3.8 mmol/l (3.3-5.1); Sodium 130 mmol/L (135-145)
[2020-10-06 11:11] LABS: Alanine Aminotransferase 11 U/L (0-31); Albumin Level 1.9 g/dL (3.5-5.0); Alkaline Phosphatase 187 U/L (39-117); Aspartate Amino Transferase 70 U/L (5-31); Bilirubin Direct 10.3 mg/dL (0.0-0.5); Total Protein 5.5 g/dL (6.5-8.0)
--- NOTE | 2020-10-06 11:22 | MHC.CM.PN ---
Patient is here with Abdominal pain and having scopes done today. The goal for dc is to return home with resumption of [address] [facility] services. CM will continue to follow for dc planning and the possible need to adjust the dc plan.
--- NOTE | 2020-10-06 12:12 | P.CONAN_ITS ---
FORMERLY [facility], [facility] Past Medical History Medical History Acute GI bleeding Acute metabolic encephalopathy Alcoholic cirrhosis of liver Asthma CHF (congestive heart failure) Chiari malformation CVA (cerebral vascular accident) Depression Depression with anxiety GI bleed Hemorrhoids Hepatitis C Hypokalemia NSVT (nonsustained ventricular tachycardia) Orthostatic hypotension Peptic ulcer disease Seizures Functional capacity: independent ambulation Surgical History Surgical History Gastric bypass status for obesity Hx of cholecystectomy Social History Social History Household Members: Family Housing: Apartment Alcohol intake: current Alcohol intake frequency: 3 or more drinks per day Alcohol type: hard liquor Smoking Status: Current every day smoker Tobacco Type: Cigarette Cigarettes Per Day: 0.5 Years Smoked: 12 Second Hand Smoke Exposure: No service: No Current occupational status: unemployed Meds Allergies Allergy/AdvReac Type Severity Reaction Status Date / Time morphine [MORPHINE] Allergy Mild HIVES Verified 10/02/20 16:21 banana [BANANA] AdvReac Severe DIFFICULTY Verified 10/02/20 16:21 BREATHING morphine and related Allergy Unknown Hives Uncoded 09/12/20 17:13 Home Medications Medication Instructions Recorded Confirmed Type mirtazapine 1 tab SUBLINGUAL BEDTIME 09/09/20 10/02/20 History ferrous sulfate 5 ml PO DAILY 10/02/20 10/02/20 History omeprazole 1 cap PO BID 10/02/20 10/02/20 History Exam Exam Date and Time: October 06, 2020 1212 Height,Weight and Vital Signs: Height 5 ft 6 in Weight 58.96 kg Last Vital Signs Temp 97.7 F 10/06/20 11:56 Pulse 109 H 10/06/20 11:56 Resp 16 10/06/20 11:56 BP 106/62 10/06/20 11:56 Pulse Ox 98 10/06/20 11:56 Pertinent Lab Results Pertinent Lab Results: Laboratory Tests 10/02/20 10/02/20 10/02/20 18:45 18:45 18:45 WBC 17.7 H RBC 2.15 L Hgb 7.9 L Hct 24.3 L MCV 113.0 H MCH 36.7 H MCHC 32.5 RDW 20.8 H Plt Count 156 L MPV 9.6 Immature Gran % (Auto) 0.6 H Neut % (Auto) 81.2 H Lymph % (Auto) 11.6 L [place] % (Auto) 5.7 Eos % (Auto) 0.4 Baso % (Auto) 0.5 Lymph # (Auto) 2.0 [place] # (Auto) 1.0 Eos # (Auto) 0.1 Baso # (Auto) 0.1 Abs Immat Gran (auto) 0.10 H Absolute Neuts (auto) 14.4 H Absolute Nucleated RBC 0.000 Nucleated RBC % (auto) 0.0 Smear Tech's Comments Smear Path Review SEE NOTE PT 20.8 H INR 1.7 H APTT 41.3 H Sodium 135 Potassium 2.7 L Chloride 103 Carbon Dioxide 18 L Anion Gap 17 BUN 5 L Creatinine 0.69 Estim Creat Clear Calc TNP Estimated GFR > 60 Random Glucose 146 H Fasting Glucose Lactic Acid Lactic Acid Fup @ 2Hr Calcium 7.4 L Magnesium 2.0 Total Bilirubin 12.1 H Direct Bilirubin 9.0 H AST 100 H ALT 16 Alkaline Phosphatase 241 H Ammonia Lactate Dehydrogenase Troponin I High Sens B-Natriuretic Peptide Total Protein 6.0 L Albumin 2.2 L Lipase 20 Urine Color Urine Appearance Urine pH Ur Specific [place] Urine Protein Urine Glucose (UA) Urine Ketones Urine Blood Urine Nitrite Ur Leukocyte Esterase Urine RBC Urine WBC Ur Squamous Epith Cells Urine Bacteria Peritoneal WBC Peritoneal RBC Periton Neutrophils Periton Lymphocytes Peritoneal Monocytes Peritoneal Basophils Peritoneal Other Cells Peritoneal Creatinine Peritoneal Tot Protein Peritoneal Albumin Peritoneal LDH Peritoneal Glucose Peritoneal Amylase Ethyl Alcohol C. difficile Toxin A&B C. difficile Antigen C. difficile Interpret COVID-19 ([facility]) COVID-19 Clin Com Blood Type Antibody Screen Crossmatch 10/02/20 10/02/20 10/02/20 18:45 18:45 18:45 WBC RBC Hgb Hct MCV MCH MCHC RDW Plt Count MPV Immature Gran % (Auto) Neut % (Auto) Lymph % (Auto) [place] % (Auto) Eos % (Auto) Baso % (Auto) Lymph # (Auto) [place] # (Auto) Eos # (Auto) Baso # (Auto) Abs Immat Gran (auto) Absolute Neuts (auto) Absolute Nucleated RBC Nucleated RBC % (auto) Smear Tech's Comments Smear Path Review PT INR APTT Sodium Potassium Chloride Carbon Dioxide Anion Gap BUN Creatinine Estim Creat Clear Calc Estimated GFR Random Glucose Fasting Glucose Lactic Acid Lactic Acid Fup @ 2Hr Calcium Magnesium Total Bilirubin Direct Bilirubin AST ALT Alkaline Phosphatase Ammonia Lactate Dehydrogenase Troponin I High Sens < 3.5 B-Natriuretic Peptide 115 H Total Protein Albumin Lipase Urine Color Urine Appearance Urine pH Ur Specific [place] Urine Protein Urine Glucose (UA) Urine Ketones Urine Blood Urine Nitrite Ur Leukocyte Esterase Urine RBC Urine WBC Ur Squamous Epith Cells Urine Bacteria Peritoneal WBC Peritoneal RBC Periton Neutrophils Periton Lymphocytes Peritoneal Monocytes Peritoneal Basophils Peritoneal Other Cells Peritoneal Creatinine Peritoneal Tot Protein Peritoneal Albumin Peritoneal LDH Peritoneal Glucose Peritoneal Amylase Ethyl Alcohol 36 C. difficile Toxin A&B C. difficile Antigen C. difficile Interpret COVID-19 ([facility]) COVID-19 [facility] Com Blood Type Antibody Screen Crossmatch 10/02/20 10/02/20 10/02/20 18:45 19:19 20:27 WBC RBC Hgb Hct MCV MCH MCHC RDW Plt Count MPV Immature Gran % (Auto) Neut % (Auto) Lymph % (Auto) [place] % (Auto) Eos % (Auto) Baso % (Auto) Lymph # (Auto) [place] # (Auto) Eos # (Auto) Baso # (Auto) Abs Immat Gran (auto) Absolute Neuts (auto) Absolute Nucleated RBC Nucleated RBC % (auto) Smear Tech's Comments Smear Path Review PT INR APTT Sodium Potassium Chloride Carbon Dioxide Anion Gap BUN Creatinine Estim Creat Clear Calc Estimated GFR Random Glucose Fasting Glucose Lactic Acid 3.7 H* Lactic Acid Fup @ 2Hr Calcium Magnesium Total Bilirubin Direct Bilirubin AST ALT Alkaline Phosphatase Ammonia 124 H Lactate Dehydrogenase Troponin I High Sens B-Natriuretic Peptide Total Protein Albumin Lipase Urine Color PATO Urine Appearance HAZY Urine pH 6.5 Ur Specific [place] 1.020 Urine Protein 1+ H Urine Glucose (UA) 100 H Urine Ketones 5 Urine Blood NEG Urine Nitrite POS H Ur Leukocyte Esterase TRACE H Urine RBC 0 Urine WBC 0 Ur Squamous Epith Cells 3+ Urine Bacteria 1+ Peritoneal WBC Peritoneal RBC Periton Neutrophils Periton Lymphocytes Peritoneal Monocytes Peritoneal Basophils Peritoneal Other Cells Peritoneal Creatinine Peritoneal Tot Protein Peritoneal Albumin Peritoneal LDH Peritoneal Glucose Peritoneal Amylase Ethyl Alcohol C. difficile Toxin A&B C. difficile Antigen C. difficile Interpret COVID-19 ([facility]) COVID-19 [facility] Com Blood Type Antibody Screen Crossmatch 10/02/20 10/02/20 10/02/20 21:29 21:29 23:25 WBC RBC Hgb Hct MCV MCH MCHC RDW Plt Count MPV Immature Gran % (Auto) Neut % (Auto) Lymph % (Auto) [place] % (Auto) Eos % (Auto) Baso % (Auto) Lymph # (Auto) [place] # (Auto) Eos # (Auto) Baso # (Auto) Abs Immat Gran (auto) Absolute Neuts (auto) Absolute Nucleated RBC Nucleated RBC % (auto) Smear Tech's Comments Smear Path Review PT INR APTT Sodium Potassium Chloride Carbon Dioxide Anion Gap BUN Creatinine Estim Creat Clear Calc Estimated GFR Random Glucose Fasting Glucose Lactic Acid Lactic Acid Fup @ 2Hr 1.7 Calcium Magnesium Total Bilirubin Direct Bilirubin AST ALT Alkaline Phosphatase Ammonia Lactate Dehydrogenase Troponin I High Sens B-Natriuretic Peptide Total Protein Albumin Lipase Urine Color Urine Appearance Urine pH Ur Specific [place] Urine Protein Urine Glucose (UA) Urine Ketones Urine Blood Urine Nitrite Ur Leukocyte Esterase Urine RBC Urine WBC Ur Squamous Epith Cells Urine Bacteria Peritoneal WBC 0.065 Peritoneal RBC < 0.002 Periton Neutrophils 6 Periton Lymphocytes 6 Peritoneal Monocytes 75 Peritoneal Basophils 1 Peritoneal Other Cells 12 Peritoneal Creatinine 0.7 Peritoneal Tot Protein 0.5 Peritoneal Albumin 0.2 Peritoneal LDH 25 Peritoneal Glucose 142 Peritoneal Amylase 9 Ethyl Alcohol C. difficile Toxin A&B C. difficile Antigen C. difficile Interpret COVID-19 ([facility]) COVID-19 Clin Com Blood Type Antibody Screen Crossmatch 10/02/20 10/03/20 10/03/20 23:25 03:36 03:36 WBC 15.9 H RBC 2.03 L Hgb 7.6 L Hct 23.3 L MCV 114.8 H MCH 37.4 H MCHC 32.6 RDW 21.0 H Plt Count 159 L MPV 9.3 L Immature Gran % (Auto) 0.9 H Neut % (Auto) 80.0 H Lymph % (Auto) 8.6 L [place] % (Auto) 9.6 Eos % (Auto) 0.6 Baso % (Auto) 0.3 Lymph # (Auto) 1.4 [place] # (Auto) 1.5 H Eos # (Auto) 0.1 Baso # (Auto) 0.0 Abs Immat Gran (auto) 0.15 H Absolute Neuts (auto) 12.7 H Absolute Nucleated RBC 0.000 Nucleated RBC % (auto) 0.0 Smear Tech's Comments VERIFIED Smear Path Review PT INR APTT Sodium 137 Potassium 3.3 D Chloride 107 Carbon Dioxide 18 L Anion Gap 15 BUN 4 L Creatinine 0.70 Estim Creat Clear Calc 109.3 Estimated GFR > 60 Random Glucose 105 Fasting Glucose Lactic Acid Lactic Acid Fup @ 2Hr Calcium 7.0 L Magnesium Total Bilirubin Direct Bilirubin AST ALT Alkaline Phosphatase Ammonia Lactate Dehydrogenase 283 H Troponin I High Sens B-Natriuretic Peptide Total Protein Albumin 2.0 L Lipase Urine Color Urine Appearance Urine pH Ur Specific [place] Urine Protein Urine Glucose (UA) Urine Ketones Urine Blood Urine Nitrite Ur Leukocyte Esterase Urine RBC Urine WBC Ur Squamous Epith Cells Urine Bacteria Peritoneal WBC Peritoneal RBC Periton Neutrophils Periton Lymphocytes Peritoneal Monocytes Peritoneal Basophils Peritoneal Other Cells Peritoneal Creatinine Peritoneal Tot Protein Peritoneal Albumin Peritoneal LDH Peritoneal Glucose Peritoneal Amylase Ethyl Alcohol C. difficile Toxin A&B C. difficile Antigen C. difficile Interpret COVID-19 ([facility]) Negative COVID-19 Clin Com See Note Blood Type Antibody Screen Crossmatch 10/04/20 10/04/20 10/04/20 06:04 06:04 06:04 WBC 14.2 H RBC 1.74 L Hgb 6.5 L* Hct 19.9 L* MCV 114.4 H MCH 37.4 H MCHC 32.7 RDW 21.0 H Plt Count 133 L MPV 9.6 Immature Gran % (Auto) 0.7 H Neut % (Auto) 78.7 H Lymph % (Auto) 12.0 L [place] % (Auto) 7.4 Eos % (Auto) 0.8 Baso % (Auto) 0.4 Lymph # (Auto) 1.7 [place] # (Auto) 1.1 Eos # (Auto) 0.1 Baso # (Auto) 0.1 Abs Immat Gran (auto) 0.10 H Absolute Neuts (auto) 11.2 H Absolute Nucleated RBC 0.000 Nucleated RBC % (auto) 0.0 Smear Tech's Comments Smear Path Review PT 26.6 H D INR 2.2 H APTT Sodium 134 L Potassium 2.9 L Chloride 106 Carbon Dioxide 20 L Anion Gap 11 L BUN 3 L Creatinine 0.61 Estim Creat Clear Calc 125.5 Estimated GFR > 60 Random Glucose Fasting Glucose 78 Lactic Acid Lactic Acid Fup @ 2Hr Calcium 6.9 L Magnesium 1.8 Total Bilirubin 9.8 H Direct Bilirubin 7.5 H AST 79 H ALT 11 Alkaline Phosphatase 176 H D Ammonia Lactate Dehydrogenase Troponin I High Sens B-Natriuretic Peptide Total Protein 4.8 L Albumin 1.6 L Lipase Urine Color Urine Appearance Urine pH Ur Specific [place] Urine Protein Urine Glucose (UA) Urine Ketones Urine Blood Urine Nitrite Ur Leukocyte Esterase Urine RBC Urine WBC Ur Squamous Epith Cells Urine Bacteria Peritoneal WBC Peritoneal RBC Periton Neutrophils Periton Lymphocytes Peritoneal Monocytes Peritoneal Basophils Peritoneal Other Cells Peritoneal Creatinine Peritoneal Tot Protein Peritoneal Albumin Peritoneal LDH Peritoneal Glucose Peritoneal Amylase Ethyl Alcohol C. difficile Toxin A&B C. difficile Antigen C. difficile Interpret COVID-19 ([facility]) COVID-19 Clin Com Blood Type Antibody Screen Crossmatch 10/04/20 10/04/20 10/04/20 08:03 17:06 17:06 WBC 14.6 H RBC 2.24 L D Hgb 8.3 L D Hct 25.3 L D MCV 112.9 H MCH 37.1 H MCHC 32.8 RDW 23.6 H Plt Count 131 L MPV 9.2 L Immature Gran % (Auto) Neut % (Auto) Lymph % (Auto) [place] % (Auto) Eos % (Auto) Baso % (Auto) Lymph # (Auto) [place] # (Auto) Eos # (Auto) Baso # (Auto) Abs Immat Gran (auto) Absolute Neuts (auto) Absolute Nucleated RBC 0.000 Nucleated RBC % (auto) 0.0 Smear Tech's Comments Smear Path Review PT INR APTT Sodium 133 L Potassium 3.6 D Chloride 106 Carbon Dioxide 21 L Anion Gap 10 L BUN 3 L Creatinine 0.63 Estim Creat Clear Calc 121.5 Estimated GFR > 60 Random Glucose 101 Fasting Glucose Lactic Acid Lactic Acid Fup @ 2Hr Calcium 6.9 L Magnesium Total Bilirubin Direct Bilirubin AST ALT Alkaline Phosphatase Ammonia Lactate Dehydrogenase Troponin I High Sens B-Natriuretic Peptide Total Protein Albumin Lipase Urine Color Urine Appearance Urine pH Ur Specific [place] Urine Protein Urine Glucose (UA) Urine Ketones Urine Blood Urine Nitrite Ur Leukocyte Esterase Urine RBC Urine WBC Ur Squamous Epith Cells Urine Bacteria Peritoneal WBC Peritoneal RBC Periton Neutrophils Periton Lymphocytes Peritoneal Monocytes Peritoneal Basophils Peritoneal Other Cells Peritoneal Creatinine Peritoneal Tot Protein Peritoneal Albumin Peritoneal LDH Peritoneal Glucose Peritoneal Amylase Ethyl Alcohol C. difficile Toxin A&B C. difficile Antigen C. difficile Interpret COVID-19 ([facility]) COVID-19 Clin Com Blood Type O Negative Antibody Screen NEGATIVE Crossmatch See Detail 10/04/20 10/05/20 10/05/20 Unknown 06:33 06:33 WBC 16.8 H RBC 2.00 L Hgb 7.5 L Hct 22.4 L MCV 112.0 H MCH 37.5 H MCHC 33.5 RDW 23.2 H Plt Count 130 L MPV 9.3 L Immature Gran % (Auto) Neut % (Auto) Lymph % (Auto) [place] % (Auto) Eos % (Auto) Baso % (Auto) Lymph # (Auto) [place] # (Auto) Eos # (Auto) Baso # (Auto) Abs Immat Gran (auto) Absolute Neuts (auto) Absolute Nucleated RBC 0.000 Nucleated RBC % (auto) 0.0 Smear Tech's Comments Smear Path Review PT INR APTT Sodium 129 L Potassium 3.4 Chloride 103 Carbon Dioxide 18 L Anion Gap 11 L BUN 3 L Creatinine 0.63 Estim Creat Clear Calc 121.5 Estimated GFR > 60 Random Glucose 62 D Fasting Glucose Lactic Acid Lactic Acid Fup @ 2Hr Calcium 7.1 L Magnesium 1.6 Total Bilirubin 12.7 H Direct Bilirubin 9.3 H AST 73 H ALT 11 Alkaline Phosphatase 182 H Ammonia Lactate Dehydrogenase Troponin I High Sens B-Natriuretic Peptide Total Protein 4.9 L Albumin 1.8 L Lipase Urine Color Urine Appearance Urine pH Ur Specific [place] Urine Protein Urine Glucose (UA) Urine Ketones Urine Blood Urine Nitrite Ur Leukocyte Esterase Urine RBC Urine WBC Ur Squamous Epith Cells Urine Bacteria Peritoneal WBC Peritoneal RBC Periton Neutrophils Periton Lymphocytes Peritoneal Monocytes Peritoneal Basophils Peritoneal Other Cells Peritoneal Creatinine Peritoneal Tot Protein Peritoneal Albumin Peritoneal LDH Peritoneal Glucose Peritoneal Amylase Ethyl Alcohol C. difficile Toxin A&B Negative C. difficile Antigen Negative C. difficile Interpret SEE NOTE COVID-19 ([facility]) COVID-19 Clin Com Blood Type Antibody Screen Crossmatch 10/05/20 10/06/20 10/06/20 14:39 10:25 10:25 WBC 16.2 H RBC 2.28 L Hgb 7.7 L 8.5 L Hct 23.5 L 25.7 L MCV 112.7 H MCH 37.3 H MCHC 33.1 RDW 22.0 H Plt Count 128 L MPV 9.0 L Immature Gran % (Auto) Neut % (Auto) Lymph % (Auto) [place] % (Auto) Eos % (Auto) Baso % (Auto) Lymph # (Auto) [place] # (Auto) Eos # (Auto) Baso # (Auto) Abs Immat Gran (auto) Absolute Neuts (auto) Absolute Nucleated RBC 0.000 Nucleated RBC % (auto) 0.0 Smear Tech's Comments Smear Path Review PT INR APTT Sodium 130 L Potassium 3.8 Chloride 102 Carbon Dioxide 20 L Anion Gap 12 BUN 4 L Creatinine 0.67 Estim Creat Clear Calc 114.2 Estimated GFR > 60 Random Glucose 77 Fasting Glucose Lactic Acid Lactic Acid Fup @ 2Hr Calcium 7.4 L Magnesium Total Bilirubin Direct Bilirubin AST ALT Alkaline Phosphatase Ammonia Lactate Dehydrogenase Troponin I High Sens B-Natriuretic Peptide Total Protein Albumin Lipase Urine Color Urine Appearance Urine pH Ur Specific [place] Urine Protein Urine Glucose (UA) Urine Ketones Urine Blood Urine Nitrite Ur Leukocyte Esterase Urine RBC Urine WBC Ur Squamous Epith Cells Urine Bacteria Peritoneal WBC Peritoneal RBC Periton Neutrophils Periton Lymphocytes Peritoneal Monocytes Peritoneal Basophils Peritoneal Other Cells Peritoneal Creatinine Peritoneal Tot Protein Peritoneal Albumin Peritoneal LDH Peritoneal Glucose Peritoneal Amylase Ethyl Alcohol C. difficile Toxin A&B C. difficile Antigen C. difficile Interpret COVID-19 ([facility]) COVID-19 [facility] Com Blood Type Antibody Screen Crossmatch 10/06/20 10:25 WBC RBC Hgb Hct MCV MCH MCHC RDW Plt Count MPV Immature Gran % (Auto) Neut % (Auto) Lymph % (Auto) [place] % (Auto) Eos % (Auto) Baso % (Auto) Lymph # (Auto) [place] # (Auto) Eos # (Auto) Baso # (Auto) Abs Immat Gran (auto) Absolute Neuts (auto) Absolute Nucleated RBC Nucleated RBC % (auto) Smear Tech's Comments Smear Path Review PT INR APTT Sodium Potassium Chloride Carbon Dioxide Anion Gap BUN Creatinine Estim Creat Clear Calc Estimated GFR Random Glucose Fasting Glucose Lactic Acid Lactic Acid Fup @ 2Hr Calcium Magnesium 2.0 Total Bilirubin 14.0 H Direct Bilirubin 10.3 H AST 70 H ALT 11 Alkaline Phosphatase 187 H Ammonia Lactate Dehydrogenase Troponin I High Sens B-Natriuretic Peptide Total Protein 5.5 L Albumin 1.9 L Lipase Urine Color Urine Appearance Urine pH Ur Specific [place] Urine Protein Urine Glucose (UA) Urine Ketones Urine Blood Urine Nitrite Ur Leukocyte Esterase Urine RBC Urine WBC Ur Squamous Epith Cells Urine Bacteria Peritoneal WBC Peritoneal RBC Periton Neutrophils Periton Lymphocytes Peritoneal Monocytes Peritoneal Basophils Peritoneal Other Cells Peritoneal Creatinine Peritoneal Tot Protein Peritoneal Albumin Peritoneal LDH Peritoneal Glucose Peritoneal Amylase Ethyl Alcohol C. difficile Toxin A&B C. difficile Antigen C. difficile Interpret COVID-19 ([facility]) COVID-19 [place] Com Blood Type Antibody Screen Crossmatch Airway Mallampati Class: II (Lip piercing refusing to take out) TM Dist: >3cm Neck ROM: Full Heart: RRR Lungs: CTA BL Assessment and Plan Assessment Anesthesia Assessment: Anesthesia Plan Discussed and Chart Reviewed Final Anesthetic Review NPO: Yes ASA Class: III Final Preanesthetic Review: Meds/[place] Chart Reviewed and Consent Obtained/Reviewed Patient Risk: Intermediate Procedure Risk: Intermediate Anesthetic Plan Anesthetic Plan: MAC: Disposition: Standard PACU
--- NOTE | 2020-10-06 12:31 | MHC.SHP ---
Pre-Procedural Eval Section A The patient is an INPATIENT: Yes The History & Physical has been completed within 30 days and I have reviewed it.: Yes Section B Chief Complaint: Abdominal pain Allergies: Allergies Allergy/AdvReac Type Severity Reaction Status Date / Time morphine [MORPHINE] Allergy Mild HIVES Verified 10/02/20 16:21 banana [BANANA] AdvReac Severe DIFFICULTY Verified 10/02/20 16:21 BREATHING morphine and related Allergy Unknown Hives Uncoded 09/12/20 17:13 Plan Diagnosis/Plan: Unchanged Patient has been examined and remains a candidate for the planned procedure
--- NOTE | 2020-10-06 12:31 | W.PM.OPN ---
Operative Note Operative Note Date of Service: 10/06/20 Narrative: Operative Information Procedure Description: EGD, Colonoscopy FLEXIBLE TRANSORAL UPPER GASTROINTESTINAL ENDOSCOPY AND COLONOSCOPY PROCEDURE NOTE UPPER ENDOSCOPY Consent: Indications for the procedure and potential complications of bleeding, perforation, reaction to medications and missed diagnosis were discussed with the patient and informed consent was obtained. Instrument: Olympus GIF H 190 J mid size upper endoscope Monitoring: Vital signs and clinical assessment, continuous EKG monitoring, Pulse oximetry, Carbon Dioxide monitoring and blood pressure monitoring were done throughout the procedure. Procedure: The patient was placed in the left lateral decubitis position and pre-procedure medications were administered and a bite block was placed. The endoscope was inserted into the mouth and advanced under direct vision to the third part of duodenum. A careful inspection was made as the upper endoscope was withdrawn including a retroflexed examination of the proximal stomach; Findings and interventions are described below. Findings: Larynx:normal Esophagus: GE junction at 38 cm, diaphragm hiatus at 38 cm, superficial ulceration in distal esophagus with slough exudate, no varices seen Stomach pouch: mosaic pattern consistent with portal hypertensive gastropathy. Biopsies were obtained. Grade 2 flap valve on retroflexed examination of the cardia. jejunum: 18-20 mm Abiel grade III ulcer at anastomosis on the jejunal aspect, surrounded by friable tissue, no visible vessels seen Intervention: none COLONOSCOPY Instrument: Olympus variable stiffness pediatric scope 190L Colonoscopy Monitoring: Vital signs and clinical assessment, continuous EKG monitoring, Pulse oximetry, Carbon Dioxide monitoring and blood pressure monitoring were done throughout the procedure. Colon withdrawal time was 11 minutes. Procedure: The patient was placed in the left lateral decubitis position and pre-procedure medications were administered. After a digital rectal examination of the ano-rectum, the video colonoscope was inserted into the rectum and advanced through the colon to the cecum/TI. The colonoscope was slowly withdrawn in a retrograde panoramic fashion and the colon mucosa was carefully examined including a retroflexed view of the rectum. Findings and interventions are described below. Procedure Difficulty: normal Findings: Colonic mucosa edematous and featureless, random bx taken Terminal Ileum-normal Cecum:normal Ascending Colon: 5-8 mm sessile polyp removed with biopsy forceps, clip applied x 1 to area due to bleeding Transverse Colon -normal Descending Colon:normal Sigmoid Colon: normal Rectum: Retroflexion with small non bleeding internal hemorrhoids, grade I Anorectum - normal Colon preparation: [place] Bowel Preparation Scale Right colon; 3 Transverse colon: 3 Left colon; 2 (0 = Unprepared colon segment with mucosa not seen due to solid stool that cannot be cleared. 1 = Portion of mucosa of the colon segment seen, but other areas of the colon segment not well seen due to staining, residual stool and/or opaque liquid. 2 = Minor amount of residual staining, small fragments of stool and/or opaque liquid, but mucosa of colon segment seen well. 3 = Entire mucosa of colon segment seen well with no residual staining, small fragments of stool or opaque liquid) Impression and Post Procedure Diagnosis: Endoscopy Findings: portal hypertensive gastropathy ulcerated esophagitis anastomotic ulcer Colonoscopy Findings: colonic edema, internal hemorrhoids polyp Plan: Await Pathology results Repeat Colonoscopy in 5-10 years or earlier if clinically indicated High fiber diet leaflet avoid straining at stool, epsom salts and sitz bath, anusol supps or cream prn pantoprazole 40 gm BID, carafate 1 g QID, avoid alcohol and nsaids Above findings were reviewed with the patient and relevant handouts were provided if indicated.
--- NOTE | 2020-10-06 12:31 | PM.OP ---
Brief Operative Note Date of Service: 10/06/20 Pre-op diagnosis: anemia, hx of rectal bleeding and anastomotic ulcer Post-op diagnosis: same Procedure: see op note Surgeon: Agueda Katz MD Anesthesia: MAC Estimated blood loss (mL): 0 Condition: stable Disposition: PACU
--- NOTE | 2020-10-06 13:04 | HO.PM.IMPN ---
Subjective Subjective Date of Service: 10/06/20 Interval History: seen and examined no new complaints willing to stay in the hospital for her scopes tomorrow ROS General - no fevers or chills Cardiovascular - no chest pain Respiratory - no shortness of breath or cough Abdominal- +abd pain Physical Exam Vital Signs: Vital Signs: Last Vital Signs Temp 97.7 F 10/06/20 11:56 Pulse 109 H 10/06/20 11:56 Resp 16 10/06/20 11:56 BP 106/62 10/06/20 11:56 Pulse Ox 98 10/06/20 11:56 Body Mass Index 20.9 Const: Other: General - no acute distress, appears comfortable Cardiovascular - regular rate and rhythm, S1-S2 Lungs - normal respiratory effort, clear to auscultation bilaterally, no wheezing Abdomen - tender without rebounding or guarding -- chronic Extremities - no edema bilaterally Neuro - awake and alert, no focal deficits Objective Data Current Medications Generic Name Dose Route Start Last Admin Trade Name Freq PRN Reason Stop Dose Admin Hydroxyzine HCl 25 mg 10/05/20 17:22 10/06/20 10:27 Hydroxyzine Hcl 25 Mg Tablet PO 25 mg Q6H PRN Administration Anxiety Ceftriaxone Sodium 1 gm/ 50 mls @ 100 mls/hr 10/03/20 01:00 10/06/20 01:10 Sodium Chloride IV Infused Q24H ALTHEA Infusion Medication 1 each 10/03/20 09:00 No Benzodiazepines MISCELLANE DAILY ALTHEA Midodrine 5 mg 10/03/20 09:00 10/06/20 08:47 Midodrine Hcl 5 Mg Tablet PO 5 mg TID ALTHEA Administration Mirtazapine 15 mg 10/03/20 21:00 10/05/20 21:46 Mirtazapine 15 Mg Tablet PO 15 mg BEDTIME ALTHEA Administration Nicotine 21 mg 10/03/20 09:00 10/06/20 08:47 Nicotine 21 Mg Patch.Td24 TRANSDERMA 21 mg DAILY ALTHEA Administration Omeprazole 20 mg 10/03/20 06:30 10/06/20 09:54 Omeprazole 20 Mg Capsule.Dr PO 20 mg BID@0630,1630 ALTHEA Administration Ondansetron HCl 4 mg 10/06/20 12:38 Ondansetron Hcl 4 Mg/2 Ml Vial IVPUSH ONCE PRN Nausea and Vomiting Oxycodone HCl 10 mg 10/04/20 18:27 10/06/20 08:47 Oxycodone Hcl Immed Release 5 Mg Tablet PO 10 mg Q6H PRN Administration Pain, Severe (Pain Scale 7-10) Phenobarbital 15 mg 10/05/20 09:00 10/06/20 08:47 Phenobarbital 15 Mg Tablet PO 10/06/20 21:01 15 mg BID ALTHEA Administration Protocol Phenobarbital 15 mg 10/07/20 09:00 Phenobarbital 15 Mg Tablet PO 10/08/20 09:01 DAILY [facility] Protocol Sodium Chloride 3 ml 10/03/20 08:00 10/06/20 08:47 0.9 % Sodium Chloride Flush 3 Ml Syringe IVFLUSH 3 ml QSHIFT [facility] Administration Trazodone HCl 50 mg 10/03/20 21:00 10/05/20 21:46 Trazodone Hcl 50 Mg Tablet PO 50 mg BEDTIME ALTHEA Administration Labs CBC & Chem 7: 10/06/20 10:25 10/06/20 10:25 Microbiology Microbiology Results: Microbiology 10/02/20 21:28 Abdominal Fluid Gram Stain - Final 10/02/20 21:28 Abdominal Fluid Routine Culture - Final No growth after 2 days 10/02/20 21:25 Blood - Venous Blood Culture - Preliminary No growth after 48 hours. 10/02/20 20:27 Blood - Venous Blood Culture - Preliminary No growth after 48 hours. 10/02/20 19:29 Urine clean catch - Clean Catch Midstream Urine Culture - Final No growth. Assessment and Plan (1) Ascites: Status: Acute Assessment and Plan: This is a 30 yo F with a history of alcohol abuse and dependence with its associated complications who has a history of multiple hospitalizations and subsequently leaving [place] who is admitted to the hospital for: 1. Abdominal pain endoscopies today continue PPI f/u cultures - negative to date 2. Alcohol liver disease / ascites / alcohol dependence and withdrawal negative for spb by cultures / cell count - complete 5-7d of antibiotics per ID recs, currently day #4 of rocephin phenobarb per protocol 3. Acute on chronic blood loss anemia h/h stable post transfusion 4. Multiple electrolyte abnormalities improved with IV/PO, continue monitoring Full Code DVT pptx, mechanical due to acute blood loss anemia
[2020-10-06] MEDS: ondansetron HCL 4 MG/2 ML VIAL IVPUSH (14:01)
[2020-10-06] MEDS: LORazepam 1 MG TABLET PO (18:03)
[2020-10-06] MEDS: Sucralfate 1 GM TABLET PO (21:17)
[2020-10-06] MEDS: traZODone HCL 50 MG TABLET PO (21:18)
[2020-10-06] MEDS: Mirtazapine 15 MG TABLET PO (21:18)
[2020-10-07] VITALS (7 sets, daily range): BP systolic 103–119; BP diastolic 48–60; PULSE 112–120; RESP 16–20; TEMP 37.1–37.4; O2SAT 95–99
[2020-10-07] MEDS: cefTRIAXone sodium 1 GM in 0.9 % Sodium Chloride 50 ML IV (02:30)
[2020-10-07] MEDS: 0.9 % Sodium Chloride Flush 3 ML SYRINGE IVFLUSH ×3 (02:31→16:03)
[2020-10-07] MEDS: Omeprazole 20 MG CAPSULE.DR PO ×2 (05:38→16:02)
[2020-10-07] MEDS: oxyCODONE HCl Immed Release 5 MG TABLET 10 MG PO ×2 (06:01→16:02)
[2020-10-07 06:52] LABS: Hematocrit 22.7 % (37-47); Hemoglobin 7.6 g/dl (12.0-16.0); Mean Corpuscular HGB Conc 33.5 g/dl (31.0-35.0); Mean Corpuscular Hemoglobin 36.9 pg (27.0-33.0); Mean Platelet Volume 9.1 fL (9.4-12.3); Platelet Count 120 X10*3/uL (160-400); Red Blood Count 2.06 X10*6/uL (4.20-5.50); Red Cell Distribution Width 20.6 % (11.0-16.0); White Blood Count 14.4 X10*3/uL (4.8-10.8)
[2020-10-07 07:05] LABS: Mean Corpuscular Volume 110.2 fL (80-98)
[2020-10-07 07:18] LABS: Anion Gap 10 (12-20); Blood Urea Nitrogen 4 mg/dL (9-16); Calcium 7.2 mg/dL (8.4-10.2); Carbon Dioxide 20 mmol/L (22-29); Chloride 103 mmol/L (96-108); Creatinine Clr Calc Pharmacy 125.5; Estimated Glomerular Filt Rate > 60; Glucose Random 74 mg/dL (60-115); Potassium 3.4 mmol/l (3.3-5.1); Sodium 130 mmol/L (135-145)
[2020-10-07] MEDS: PHENobarbitaL 15 MG TABLET PO (08:23)
[2020-10-07] MEDS: Sucralfate 1 GM TABLET PO ×2 (08:23→16:02)
[2020-10-07] MEDS: Midodrine HCl 5 MG TABLET PO ×2 (08:24→16:02)
--- NOTE | 2020-10-07 14:57 | HO.POSTANES ---
Post Anesthesia Evaluation Post Anesthesia Evaluation Vital Signs: Vital Signs Temp Pulse Resp BP Pulse Ox 10/07/20 11:40 99.4 F 118 H 20 114/60 95 10/07/20 08:24 115 H 119/60 10/07/20 08:00 99.3 F 115 H 16 119/60 98 10/07/20 04:00 98.8 F 112 H 20 115/57 L 96 Anesthesia: Monitored Mental Status: Awake Pain Control: Satisfactory Nausea/Vomiting: None Hydration: Adequate Anesthesia-Related Issues: No Anes. Related Issues
--- NOTE | 2020-10-07 15:31 | P.DS_ITS ---
DS: Providers Provider Date of admission: 10/03/20 00:57 Primary care physician: Wilder Hernandez. Consults: 10/03/20 02:13 Consult to Gastroenterology Routine Consulting Provider: [facility] Reason for consultation: cirrhosis Has provider been notified: No Consult to Infectious Diseases Routine Consulting Provider: Dayan Boyd Reason for consultation: sepsis Has provider been notified: No DS: Diagnosis Discharge Diagnosis (1) Gastric ulcer: Status: Acute (2) Acute blood loss anemia: Status: Acute (3) Colitis: Status: Acute (4) Ascites: Status: Acute (5) Acute alcoholic hepatitis: Status: Acute (6) Alcohol withdrawal: Status: Acute DS: Medications Discharge Medications Home Medications: Home Medications Medication Instructions Recorded Confirmed mirtazapine 1 tab SUBLINGUAL BEDTIME 09/09/20 10/02/20 ferrous sulfate 5 ml PO DAILY 10/02/20 10/02/20 Previous Rx's Medication Instructions Recorded trazodone 50 mg tablet 50 mg PO BEDTIME #30 tab 09/12/20 midodrine 5 mg tablet 5 mg PO TID #90 tab 09/15/20 hydroxyzine HCl 25 mg PO Q6H PRN #60 tab 10/07/20 pantoprazole 40 mg PO BID #60 tab 10/07/20 sucralfate 1 g PO QIDACHS #120 tab 10/07/20 DS: Summary Hospital Course Hospital Course: HPI 30 y/o female with known hx of Alcohol abuse and colitis who presented due to abdominal pain. Patient is a very poor historian and not cooperative on giving hx. Patient is known to us as has been admitted multiple times due to similar c/o persistent abdominal pain, nausea and vomiting blood. Has signed out AMA multiple times of the hospital as reports that pain has not been addressed correctly . Patient has refused as well GI work up in the past and detox treatment. On current presentation patient is positive for sepsis secondary to multiple sources including UTI and persistent colitis evident on CT which is concerning for possible underlying bowel ischemia and underlying abscess. Surgery was called per ED Dr Leavitt who will follow up in the am. Patient was given multiple doses of IV dilaudid, One dose of Levaquin and flagyl covering for colitis and UTI. KCL supplemented accordingly. Decision for admission given to medicine. Patient seen and examined at the bedside, laying down in bed complaining for abdominal pain. Not cooperative. ROS as above otherwise negative. Physical exam positive for diffuse abdominal tenderness but no evidence of masses on palpation. Hospital Course: Patient presented with abdominal pain and her CT scan showed colitis. She was empirically started on IV ceftriaxone and multiple specialties including Infectious Disease, General surgery and gastroenterology. She also underwent a therapeutic and diagnostic paracentesis which was negative for SBP by culture as well as cell count. She was transfused 1 unit and her electrolytes were stabilized. See ultimately underwent both upper endoscopy and colonoscopy. Impression and Post Procedure Diagnosis: Endoscopy Findings: portal hypertensive gastropathy ulcerated esophagitis anastomotic ulcer Colonoscopy Findings: colonic edema, internal hemorrhoids polyp Plan: Await Pathology results Repeat Colonoscopy in 5-10 years or earlier if clinically indicated High fiber diet leaflet avoid straining at stool, epsom salts and sitz bath, anusol supps or cream prn pantoprazole 40 gm BID, carafate 1 g QID, avoid alcohol and nsaids Patient will be discharged home with Protonix b.i.d. and Carafate as recommended by Gastroenterology. She has been strongly encouraged as she has been each time she has been Hospitalized to give up alcohol completely. she is to follow up with the Gastroenterology Clinic and primary care office for her biopsy results. Patient was offered therapeutic paracentesis prior to discharge, which she refused and opted to f/u as OP with gastro to schedule her paracentesis. Time Spent with Patient Time attestation: Total time spent providing and/or coordinating discharge services: Physical Exam Vital Signs: Vital Signs: Last Vital Signs Temp 99.4 F 10/07/20 11:40 Pulse 118 H 10/07/20 11:40 Resp 20 10/07/20 11:40 BP 114/60 10/07/20 11:40 Pulse Ox 95 10/07/20 11:40 Body Mass Index 20.9 Const: Other: General - no acute distress, appears comfortable Cardiovascular - regular rate and rhythm, S1-S2 Lungs - normal respiratory effort, clear to auscultation bilaterally, no wheezing Abdomen - non tender, mild fluid thrill Extremities - no edema bilaterally Neuro - awake and alert, no focal deficits DS: Data Data Completed and Pending Pending studies at discharge: Pending at discharge 10/06/20 13:22 Surgical [PTH] Routine Labs on day of discharge: 10/02/20 17:21 ECG 12 lead EKG Stat EKG Documentation DIRECTED CT abdomen pelvis wo con Stat XR chest 1V Stat LORazepam [Ativan] 1 mg IVPUSH STAT STA 10/02/20 18:45 Ammonia Stat B Type Natriuretic Peptide Stat Basic Metabolic Panel Stat Complete Blood Count Auto Diff Stat Ethanol Stat Lipase Stat Liver Panel Stat Magnesium Stat Partial Thromboplastin Time Stat Prothrombin Time INR Stat Troponin-I High Sensitivity Stat 10/02/20 18:58 MVI, Adult [Infuvite Adult] 10 ml .ROUTE .STK-MED ONE Thiamine HCL 200 mg .ROUTE .STK-MED ONE 10/02/20 19:09 HYDROmorphone HCl [Dilaudid] 1 mg IVPUSH ONCE ONE 10/02/20 19:15 Folic Acid 1 mg Thiamine HCL 100 mg MVI, Adult [Infuvite Adult] 10 ml 0.9 % Sodium Chloride [Ns] 1,000 ml IV ONCE 10/02/20 19:29 Urine Culture Routine 10/02/20 19:48 metroNIDAZOLE/NS [Flagyl] 500 mg in 100 ml IV ONCE 10/02/20 19:49 Lidocaine HCl 2 % MPF [Xylocaine 2 % MPF] 15 ml SUBCUT ONCE ONE 10/02/20 20:00 levoFLOXacin/D5W [Levaquin] 500 mg in 100 ml IV Q24H 10/02/20 20:27 Lactic Acid Stat 10/02/20 20:48 HYDROmorphone HCl [Dilaudid] 1 mg IVPUSH ONCE ONE 10/02/20 21:28 Routine Culture w Gram Stain Stat 10/02/20 21:29 Albumin Peritoneal Fluid Stat Amylase Peritoneal Fluid Stat Cell Ct wDiff Peritoneal FL Stat Creatinine Peritoneal Fluid Stat Glucose Peritoneal Fluid Stat LDH Peritoneal Fluid Stat Total Protein Peritoneal Fluid Stat 10/02/20 21:33 Consult Rx EtOH Phenob Dosing 1 each MISCELLANE ONCE ONE 10/02/20 21:45 0.9 % Sodium Chloride [Ns] 1,000 ml IVCONT 999 mls/hr 0.9 % Sodium Chloride [Ns] 1,000 ml IVCONT 999 mls/hr Lactulose [Chronulac] 30 gm PO ONCE ONE Potassium Chloride ER [Klor-Con] 60 meq PO ONCE ONE 10/02/20 21:52 PHENobarbitaL sodium 283 mg IM NOW STA 10/02/20 22:48 HYDROmorphone HCl [Dilaudid] 1 mg IVPUSH ONCE ONE 10/02/20 23:03 Consult Rx Perform Med Rec 1 each MISCELLANE ONCE PRN 10/02/20 23:25 COVID-19 ID NOW ([place]) Stat ~Lactic Acid-LAB USE ONLY Stat 10/03/20 00:33 Transfer Order Routine 10/03/20 01:00 HYDROmorphone HCl [Dilaudid] 2 mg IVPUSH ONCE ONE PHENobarbitaL sodium 212 mg IM 0100,0400 10/03/20 01:06 cefTRIAXone sodium [Rocephin] 1 gm .ROUTE .STK-MED ONE 10/03/20 01:15 Lactulose [Chronulac] 10 gm PO TID ONE 10/03/20 02:33 RT Smoking Initial Cessation ONCE 10/03/20 02:57 Glucose, blood poc PREOP IV insert/maintain PREOP Vital Signs PREOP 10/03/20 03:36 Albumin Level Stat Basic Metabolic Panel Routine Complete Blood Count Auto Diff Routine Lactate Dehydrogenase Stat SLIDE REVIEW Routine 10/03/20 06:00 metroNIDAZOLE/NS [Flagyl] 500 mg in 100 ml IV Q8H 10/03/20 09:00 PHENobarbitaL 45 mg PO BID 10/03/20 09:32 oxyCODONE HCl Immed Release [Roxicodone] 5 mg PO Q12H PRN 10/03/20 Breakfast NPO Diet 10/03/20 15:00 PHENobarbitaL sodium 212 mg IM ONCE ONE 10/03/20 Lunch Full Liquid Diet 10/04/20 CDiff with Reflex to PCR Routine US abdomen limited Routine 10/04/20 00:29 cefTRIAXone sodium [Rocephin] 1 gm .ROUTE .STK-MED ONE 10/04/20 06:04 BMP [Basic Metabolic Panel Fasting] Routine Complete Blood Count Auto Diff Routine Liver Panel Routine Magnesium Routine Prothrombin Time INR Routine 10/04/20 07:30 Potassium Chloride ER [Klor-con] 60 meq PO ONCE ONE 10/04/20 08:03 Red Blood Cells Routine Type and Screen Routine 10/04/20 10:05 oxyCODONE HCl Immed Release [Roxicodone] 5 mg PO Q6H PRN 10/04/20 12:21 EKG Documentation DIRECTED 10/04/20 13:09 Add Laboratory Test Routine 10/04/20 Lunch Full Liquid Diet 10/04/20 17:06 Basic Metabolic Panel Routine Complete Blood Count no Diff Routine 10/04/20 18:27 oxyCODONE HCl Immed Release [Roxicodone] 5 mg PO ONCE ONE 10/04/20 23:58 cefTRIAXone sodium [Rocephin] 1 gm .ROUTE .STK-MED ONE 10/05/20 06:33 Basic Metabolic Panel DAILY@0600 Complete Blood Count no Diff DAILY@0600 Liver Panel DAILY@0600 Magnesium Routine 10/05/20 08:42 Add Laboratory Test Routine 10/05/20 09:00 PHENobarbitaL 15 mg PO BID 10/05/20 11:08 LORazepam [Ativan] 0.5 mg IVPUSH ONCE ONE 10/05/20 14:23 Magnesium Sulfate/H2O 2 gm in 50 ml IV ONCE 10/05/20 14:39 Hemoglobin and Hematocrit Stat 10/05/20 Lunch Regular Diet 10/05/20 21:12 Promethazine HCL [Phenergan] 6.25 mg 0.9 % Sodium Chloride [Ns] 50 ml IV ONCE 10/05/20 21:28 Promethazine HCL [Phenergan] 25 mg IV .STK-MED ONE 10/06/20 00:30 cefTRIAXone sodium [Rocephin] 1 gm .ROUTE .STK-MED ONE 10/06/20 08:39 LORazepam [Ativan] 0.25 mg IVPUSH ONCE ONE 10/06/20 08:51 Sodium Phosphate,[place]-Dibasic [Fleet Enema] 133 ml DC NOW STA 10/06/20 09:28 Sodium Phosphate,[place]-Dibasic [Fleet Enema] 133 ml DC ONCE ONE 10/06/20 Breakfast NPO Diet 10/06/20 10:25 Basic Metabolic Panel DAILY@0600 Complete Blood Count no Diff DAILY@0600 Liver Panel DAILY@0600 Magnesium Routine 10/06/20 12:38 Vital Signs Q1H ondansetron HCL [Zofran] 4 mg IVPUSH ONCE PRN 10/06/20 12:43 Lidocaine HCl 2 % MPF [Xylocaine 2 % MPF] 5 ml .ROUTE .STK-MED ONE propofoL [Diprivan] 200 mg IVPUSH .STK-MED ONE 10/06/20 12:51 fentaNYL citrate/PF [Sublimaze] 50 mcg .ROUTE .STK-MED ONE 10/06/20 13:58 ondansetron HCL [Zofran] 4 mg .ROUTE .STK-MED ONE 10/07/20 02:27 cefTRIAXone sodium [Rocephin] 1 gm .ROUTE .STK-MED ONE 10/07/20 05:58 Basic Metabolic Panel DAILY@0600 Complete Blood Count no Diff DAILY@0600 Laboratory Last Values WBC 14.4 X10*3/uL (4.8-10.8) H 10/07/20 05:58 RBC 2.06 X10*6/uL (4.20-5.50) L 10/07/20 05:58 Hgb 7.6 g/dl (12.0-16.0) L 10/07/20 05:58 Hct 22.7 % (37-47) L 10/07/20 05:58 MCV 110.2 fL (80-98) H 10/07/20 05:58 MCH 36.9 pg (27.0-33.0) H 10/07/20 05:58 MCHC 33.5 g/dl (31.0-35.0) 10/07/20 05:58 RDW 20.6 % (11.0-16.0) H 10/07/20 05:58 Plt Count 120 X10*3/uL (160-400) L 10/07/20 05:58 MPV 9.1 fL (9.4-12.3) L 10/07/20 05:58 Immature Gran % (Auto) 0.7 % (0.0-0.4) H 10/04/20 06:04 Neut % (Auto) 78.7 % (45-73) H 10/04/20 06:04 Lymph % (Auto) 12.0 % (20-40) L 10/04/20 06:04 [place] % (Auto) 7.4 % (2-11) 10/04/20 06:04 Eos % (Auto) 0.8 % (0-4) 10/04/20 06:04 Baso % (Auto) 0.4 % (0-2) 10/04/20 06:04 Lymph # (Auto) 1.7 X10*3/uL (1.2-4.9) 10/04/20 06:04 [place] # (Auto) 1.1 X10*3/uL (0.1-1.2) 10/04/20 06:04 Eos # (Auto) 0.1 X10*3/uL (0.0-0.4) 10/04/20 06:04 Baso # (Auto) 0.1 X10*3/uL (0.0-0.2) 10/04/20 06:04 Abs Immat Gran (auto) 0.10 X10*3/uL (0.00-0.03) H 10/04/20 06:04 Absolute Neuts (auto) 11.2 X10*3/uL (2.0-8.3) H 10/04/20 06:04 Absolute Nucleated RBC 0.000 X10*3/uL (0.0-0.012) 10/07/20 05:58 Nucleated RBC % (auto) 0.0 /100WBC (0.0-0.2) 10/07/20 05:58 Smear Tech's Comments VERIFIED 10/03/20 03:36 Smear Path Review SEE NOTE 10/02/20 18:45 PT 26.6 SEC (10.8-13.0) H D 10/04/20 06:04 INR 2.2 (0.9-1.1) H 10/04/20 06:04 APTT 41.3 SEC (24.1-38.0) H 10/02/20 18:45 Sodium 130 mmol/L (135-145) L 10/07/20 05:58 Potassium 3.4 mmol/l (3.3-5.1) 10/07/20 05:58 Chloride 103 mmol/L (96-108) 10/07/20 05:58 Carbon Dioxide 20 mmol/L (22-29) L 10/07/20 05:58 Anion Gap 10 (12-20) L 10/07/20 05:58 BUN 4 mg/dL (9-16) L 10/07/20 05:58 Creatinine 0.61 mg/dL (0.5-1.4) 10/07/20 05:58 Estim Creat Clear Calc 125.5 10/07/20 05:58 Estimated GFR > 60 10/07/20 05:58 Random Glucose 74 mg/dL (60-115) 10/07/20 05:58 Fasting Glucose 78 mg/dL (60-99) 10/04/20 06:04 Lactic Acid 3.7 mmol/L (0.5-2.0) H* 10/02/20 20:27 Lactic Acid Fup @ 2Hr 1.7 mmol/L (0.5-2.0) 10/02/20 23:25 Calcium 7.2 mg/dL (8.4-10.2) L 10/07/20 05:58 Magnesium 2.0 mg/dL (1.6-2.6) 10/06/20 10:25 Total Bilirubin 14.0 mg/dL (0.0-1.0) H 10/06/20 10:25 Direct Bilirubin 10.3 mg/dL (0.0-0.5) H 10/06/20 10:25 AST 70 U/L (5-31) H 10/06/20 10:25 ALT 11 U/L (0-31) 10/06/20 10:25 Alkaline Phosphatase 187 U/L (39-117) H 10/06/20 10:25 Ammonia 124 umol/L (13-55) H 10/02/20 18:45 Lactate Dehydrogenase 283 U/L (122-220) H 10/03/20 03:36 Troponin I High Sens < 3.5 ng/L (<3.5-17.0) 10/02/20 18:45 B-Natriuretic Peptide 115 pg/mL (<100) H 10/02/20 18:45 Total Protein 5.5 g/dL (6.5-8.0) L 10/06/20 10:25 Albumin 1.9 g/dL (3.5-5.0) L 10/06/20 10:25 Lipase 20 U/L (8-78) 10/02/20 18:45 Urine Color PATO 10/02/20 19:19 Urine Appearance HAZY 10/02/20 19:19 Urine pH 6.5 (5.0-8.0) 10/02/20 19:19 Ur Specific [place] 1.020 (1.005-1.025) 10/02/20 19:19 Urine Protein 1+ MG/DL (NEG-TRACE) H 10/02/20 19:19 Urine Glucose (UA) 100 MG/DL (NEG) H 10/02/20 19:19 Urine Ketones 5 MG/DL (NEG) 10/02/20 19:19 Urine Blood NEG (NEG) 10/02/20 19:19 Urine Nitrite POS (NEG) H 10/02/20 19:19 Ur Leukocyte Esterase TRACE (NEG) H 10/02/20 19:19 Urine RBC 0 /HPF (0) 10/02/20 19:19 Urine WBC 0 /HPF (0-4) 10/02/20 19:19 Ur Squamous Epith Cells 3+ /LPF 10/02/20 19:19 Urine Bacteria 1+ /LPF 10/02/20 19:19 Peritoneal WBC 0.065 X10*3/uL 10/02/20 21:29 Peritoneal RBC < 0.002 X10*6/uL 10/02/20 21:29 Periton Neutrophils 6 % 10/02/20 21:29 Periton Lymphocytes 6 % 10/02/20 21:29 Peritoneal Monocytes 75 % 10/02/20 21:29 Peritoneal Basophils 1 % 10/02/20 21:29 Peritoneal Other Cells 12 % 10/02/20 21:29 Peritoneal Creatinine 0.7 10/02/20 21:29 Peritoneal Tot Protein 0.5 10/02/20 21:29 Peritoneal Albumin 0.2 10/02/20 21:29 Peritoneal LDH 25 10/02/20 21:29 Peritoneal Glucose 142 10/02/20 21:29 Peritoneal Amylase 9 10/02/20 21:29 Ethyl Alcohol 36 mg/dL 10/02/20 18:45 C. difficile Toxin A&B Negative (Negative) 10/04/20 Unknown C. difficile Antigen Negative (Negative) 10/04/20 Unknown C. difficile Interpret SEE NOTE 10/04/20 Unknown COVID-19 ([facility]) Negative (Negative) 10/02/20 23:25 COVID-19 Clin Com See Note 10/02/20 23:25 Blood Type O Negative 10/04/20 08:03 Antibody Screen NEGATIVE 10/04/20 08:03 Crossmatch See Detail 10/04/20 08:03 Preliminary micro results at discharge 10/02/20 21:25 Blood Culture - Preliminary Blood - Venous No growth after 48 hours. 10/02/20 20:27 Blood Culture - Preliminary Blood - Venous No growth after 48 hours. Discharge Plan Discharge Patient Disposition: Home Health Service Referrals: Wilder Hernandez MD [Primary Care Provider] - 1 Week (10/13/2020 11:00AM ) Agueda Katz MD [Physician] - Discharge Medications: New sucralfate 1 gram Tablet 1 g PO QIDACHS Qty: 120 RF: 0 hydroxyzine HCl 25 mg Tablet 25 mg PO Q6H PRN (Reason: Anxiety) Qty: 60 RF: 0 Continued trazodone 50 mg tablet 50 mg PO BEDTIME Qty: 30 RF: 0 midodrine 5 mg tablet 5 mg PO TID Qty: 90 RF: 1 ferrous sulfate 15 mg iron (75 mg)/mL drops 5 ml PO DAILY RF: 0 mirtazapine 15 mg tablet,disintegrating 1 tab sublingual BEDTIME RF: 0 Changed pantoprazole 40 mg tablet,delayed release (DR/EC) 40 mg PO BID Qty: 60 RF: 3 Discontinued omeprazole 20 mg capsule,delayed release(DR/EC) 1 cap PO BID RF: 0 Discharge Orders: Discharge Order (Routine); Ordered 10/07/20 Ordered By: Danial Sanders Diet: advance to usual diet Activity on Discharge: As tolerated Patient Instructions: Abuse of Alcohol (DC), Alcohol Dependence (DC) Visit Report Forms: Patient Portal Discharge page Care Plan Goals: To stay healthy and out of the hospital. Health Concerns: Gastric Ulcer Esophagitis Alcohol Abuse Plan of Treatment: Do not drink alcohol or take NSAIDS. Take Protonix 40mg twice daily. Take Carafate 4 times daily. Follow up with Dr. Katz in a few weeks.
--- NOTE | 2020-10-07 15:44 | MHC.CM.PN ---
Patient has been medically cleared for dc to home today, no services.
== END 2020-10-07 16:50 | disposition home health service (06) | DRG 872 ==
LOC: HO.ED 22:01 → HO.IMC 10-03 01:18
PROVIDERS: Internal Medicine; Internal Medicine Gastroenterology; Nurse Practitioner Family; Admitting Provider Internal Medicine; Emergency Provider Emergency Medicine; PCP Family Medicine; Visit Provider Family Medicine
PROC: 0DJ08ZZ Inspection of Upper Intestinal Tract, Via Natural or Artificial Opening Endoscopic (ICD-10-PCS; CPT 43235; principal; 2020-10-06 12:10)
PROC: 0DJD8ZZ Inspection of Lower Intestinal Tract, Via Natural or Artificial Opening Endoscopic (ICD-10-PCS; CPT 45330; 2020-10-06 12:10)
DX: A41.9 Sepsis, unspecified organism (principal); N39.0 Urinary tract infection, site not specified; F10.231 Alcohol dependence with withdrawal delirium; D62 Acute posthemorrhagic anemia; K76.6 Portal hypertension; K22.10 Ulcer of esophagus without bleeding; K70.11 Alcoholic hepatitis with ascites; R65.20 Severe sepsis without septic shock; K52.9 Noninfective gastroenteritis and colitis, unspecified; K70.31 Alcoholic cirrhosis of liver with ascites; F17.210 Nicotine dependence, cigarettes, uncomplicated; I95.1 Orthostatic hypotension; K28.7 Chronic gastrojejunal ulcer without hemorrhage or perforation; Z71.6 Tobacco abuse counseling; K70.40 Alcoholic hepatic failure without coma; K28.9 Gastrojejunal ulcer, unspecified as acute or chronic, without hemorrhage or perforation; K63.5 Polyp of colon; K64.8 Other hemorrhoids; K31.89 Other diseases of stomach and duodenum; Z20.828 Contact with and (suspected) exposure to other viral communicable diseases; Z98.84 Bariatric surgery status; Z88.5 Allergy status to narcotic agent; Z79.899 Other long term (current) drug therapy
CPT/HCPCS: 36415; 71045; 74176; 76700; 76705; 80048; 80076; 80320; 81001; 82040; 82042; 82140; 82150; 82945; 83605; 83615; 83690; 83735; 83880; 84157; 84484; 85014; 85018; 85025; 85027; 85060; 85610; 85730; 86850; 86900; 86901; 86920; 86923; 87040; 87071; 87086; 87177; 87205; 87209; 87324; 87449; 87635; 88305; 89051; 93005; 96361; 96365; 96366; 96372; 96375; 96376; 99285; 99291; 99292; J0696; J1170; J1956; J2060; J2405; J2560; J3010; J3475; P9016

== ENCOUNTER 2020-10-10 15:56 | Inpatient (IN) | payer MEDICARE, MEDICAID, SELFPAY ==
[2020-10-10 16:16] VITALS: BP 94/50; PULSE 97; RESP 16; TEMP 36.1; BMI 27.0
[2020-10-10 17:17] LABS: Basophils Absolute Auto 0.1 X10*3/uL (0.0-0.2); Basophils Percent Auto 0.4 % (0-2); Eosinophils Absolute Auto 0.1 X10*3/uL (0.0-0.4); Eosinophils Percent Auto 0.4 % (0-4); Hemoglobin 7.2 g/dl (12.0-16.0); Imm Gran Abs Auto 0.08 X10*3/uL (0.00-0.03); Imm Gran Pct Auto 0.6 % (0.0-0.4); Lymphocytes Absolute Auto 1.4 X10*3/uL (1.2-4.9); Lymphocytes Percent Auto 10.4 % (20-40); Mean Corpuscular HGB Conc 35.3 g/dl (31.0-35.0); Mean Corpuscular Hemoglobin 39.6 pg (27.0-33.0); Mean Platelet Volume 9.4 fL (9.4-12.3); Monocytes Absolute Auto 1.3 X10*3/uL (0.1-1.2); Monocytes Percent Auto 9.6 % (2-11); Neutrophils Absolute Auto 10.8 X10*3/uL (2.0-8.3); Neutrophils Percent Auto 78.6 % (45-73); Platelet Count 124 X10*3/uL (160-400); Red Blood Count 1.82 X10*6/uL (4.20-5.50); Red Cell Distribution Width 19.9 % (11.0-16.0); White Blood Count 13.7 X10*3/uL (4.8-10.8)
[2020-10-10 17:18] LABS: MANUAL DIFF FLAG NO
[2020-10-10 17:19] LABS: Mean Corpuscular Volume 112.1 fL (80-98)
--- NOTE | 2020-10-10 17:22 | PC.NURSE ---
PT A&O, NO SOB OR CHEST PAIN. ABD IS DISTENDED AND SEMI FIRM. PT LEGS A SWOLLEN BILATERALLY. LABS COLLECTED AND SENT. IV LINE PLACED.
--- NOTE | 2020-10-10 17:24 | CT_ITS ---
EXAMINATION: CT ABDOMEN AND PELVIS WITH CONTRAST CLINICAL INFORMATION: Diffuse abdominal pain COMPARISON: Multiple recent imaging studies including ultrasound abdomen 10/04/2020, CT abdomen pelvis 10/02/2020, CT abdomen pelvis 09/09/2020, CT abdomen pelvis 08/24/2020, CT abdomen pelvis 07/19/2020, CT abdomen pelvis 07/15/[address] abdomen pelvis 07/06/2020 TECHNIQUE: Multidetector volumetric images were obtained from the superior aspect of the liver through the pubic symphysis following administration of 39 mL of Omnipaque 350 intravenous contrast. Sagittal and coronal reformatted images were obtained on the technologist's workstation. Oral contrast: No This CT examination was performed using dose optimization techniques as appropriate, variously including the following: *Automated exposure control *Adjustment of mA and/or kV according to patient size (this includes techniques or standardized protocols for targeted exams where dose is matched to indication/reason for exam; i.e. extremities or head) *Use of iterative reconstruction technique DLP: 627 mGy-cm FINDINGS: LUNG BASES: The visualized lung bases are unremarkable. Some mild left basilar atelectasis is present. LIVER, GALLBLADDER, AND BILIARY TREE: Again seen is hepatomegaly with the liver measuring just under 23 cm in AP dimension. No definite focal liver masses are seen. The hypodensities seen at the time of the prior 10/02/2020 CT scan are not confirmed on this exam nor were they confirmed ultrasound performed shortly after that on 10/04/2020. No bile duct dilatation is seen..The gallbladder is unremarkable with no evidence of radiopaque gallstones, gallbladder wall thickening, or obvious pericholecystic inflammatory changes. PERITONEUM: Moderate to large amount of ascites is present throughout the abdomen. Slightly increased in amount since the prior study. PANCREAS: Unremarkable. SPLEEN: Splenomegaly is present with the spleen measuring just under 17 cm in length slightly larger than previously when it measured just under 16 cm in length. ADRENAL GLANDS: Unremarkable. KIDNEYS AND URETERS: The kidneys are normal in size, shape, and attenuation. No hydronephrosis, hydroureter, or calculi seen. No perinephric stranding. BLADDER: Empty and cannot be evaluated. No calculi are seen. GASTROINTESTINAL: Again seen is mucosal thickening involving the entire colon most prominent on the right. Appearances are unchanged when compared to the prior study. The small bowel is unremarkable without evidence of obstruction or dilatation. The appendix is not seen. ABDOMINAL WALL: No significant hernia is appreciated. LYMPH NODES: No retroperitoneal lymphadenopathy. VASCULAR: Unremarkable. Portal venous system is patent as is the splenic vein. PELVIC VISCERA: An anteverted uterus is present. An abnormal adnexal mass is not seen. OSSEOUS STRUCTURES: Unremarkable. CT/CT abdomen pelvis w con IMPRESSION: 1. Hepatosplenomegaly with a moderate to large amount of ascites, slightly increased in volume when compared to the prior study. No focal liver masses are seen. 2. Continued wall thickening and mural edema involving the entire colon, especially on the right consistent with most likely infection or inflammatory conditions.
[2020-10-10 17:25] LABS: Hematocrit 20.4 % (37-47)
[2020-10-10 17:27] LABS: INTERNATIONAL NORM RATIO 2.2 (0.9-1.1); Prothrombin Time 26.7 SEC (10.8-13.0)
[2020-10-10 17:29] LABS: Partial Thromboplastin Time 46.4 SEC (24.1-38.0)
[2020-10-10 17:37] LABS: Ammonia 122 umol/L (13-55)
--- NOTE | 2020-10-10 17:37 | PC.NURSE ---
PT BEING MEDICATED PER MAR. BLOOD CULTURES DRAWN. CRITICAL ORDER TAKEN FOR PT HEMATOCRIT 20.[address] POTTS.
[2020-10-10 17:46] VITALS: RESP 16
[2020-10-10] MEDS: Morphine Sulfate 4 MG/ML CARTRIDGE IVPUSH (17:46)
[2020-10-10] MEDS: diphenhydrAMINE HCL 50 MG/ML VIAL IVPUSH (17:47)
[2020-10-10 17:49] LABS: Albumin Level 1.8 g/dL (3.5-5.0); Lipase 18 U/L (8-78)
[2020-10-10 17:50] LABS: Alanine Aminotransferase 14 U/L (0-31); Albumin Level 1.8 g/dL (3.5-5.0); Alkaline Phosphatase 155 U/L (39-117); Aspartate Amino Transferase 98 U/L (5-31); Bilirubin Direct 9.6 mg/dL (0.0-0.5); Bilirubin Total 13.5 mg/dL (0.0-1.0); Blood Urea Nitrogen 6 mg/dL (9-16); Creatinine Clr Calc Pharmacy 109.8; Estimated Glomerular Filt Rate > 60; Glucose Random 100 mg/dL (60-115); Magnesium 1.8 mg/dL (1.6-2.6)
[2020-10-10 18:01] LABS: Anion Gap 11 (12-20); Calcium 7.2 mg/dL (8.4-10.2); Carbon Dioxide 18 mmol/L (22-29); Chloride 102 mmol/L (96-108); Potassium 3.1 mmol/l (3.3-5.1); Sodium 128 mmol/L (135-145)
[2020-10-10 18:08] VITALS: BP 99/47; PULSE 94; RESP 30; O2SAT 97
--- NOTE | 2020-10-10 18:22 | PC.NURSE ---
MULTIPLE ATTEMPTS TO GET UA COLLECTED. PT STATES SHE DOES NOT HAVE TO GO. DELAY IN CT SCAN DUE TO PT NOT VOIDING. PROVIDER AWARE.
[2020-10-10] MEDS: ondansetron HCL 4 MG/2 ML VIAL IVPUSH (18:46)
[2020-10-10 18:52] LABS: Lactic Acid 0.9 mmol/L (0.5-2.0)
[2020-10-10 19:03] LABS: Glucose Urine UA 100 MG/DL (NEG); Leukocyte Esterase Urine 2+ (NEG); Nitrite Urine POS (NEG); Specific Gravity - Urine 1.015 (1.005-1.025); Urine Blood TRACE (NEG); Urine Ketones 5 MG/DL (NEG); Urine Protein 1+ MG/DL (NEG-TRACE)
--- NOTE | 2020-10-10 19:03 | ED_ITS ---
HPI - General Adult General Chief complaint: Abdominal Pain Stated complaint: PAIN, BLOATING Time Seen by Provider: 10/10/20 16:15 Source: patient Mode of arrival: ambulatory Limitations: no limitations History of Present Illness HPI narrative: patient comes to the emergency room complaining of feeling weak, swollen legs and abdomen after being discharged from the hospital. Patient states she was discharged from the hospital on October 07. Patient was in the hospital for abdominal pain, with suspicion of possible underlying bowel ischemia. Patient had a paracentesis and also receive 1 unit of packed red blood cells. Patient also had an endoscopy and colonoscopy, she was diagnosed with portal hypertension. patient states since he left the hospital, she has been feeling very weak, increased abdominal pain. MD complaint: Weakness, chronic pain Related Data Home Medications Medication Instructions Recorded Confirmed mirtazapine 1 tab SUBLINGUAL BEDTIME 09/09/20 10/02/20 ferrous sulfate 5 ml PO DAILY 10/02/20 10/02/20 Previous Rx's Medication Instructions Recorded trazodone 50 mg tablet 50 mg PO BEDTIME #30 tab 09/12/20 midodrine 5 mg tablet 5 mg PO TID #90 tab 09/15/20 hydroxyzine HCl 25 mg PO Q6H PRN #60 tab 10/07/20 oxycodone 5 mg PO BID PRN #10 tab MDD 10 10/07/20 pantoprazole 40 mg PO BID #60 tab 10/07/20 sucralfate 1 g PO QIDACHS #120 tab 10/07/20 Allergies Allergy/AdvReac Type Severity Reaction Status Date / Time morphine [MORPHINE] Allergy Mild HIVES Verified 10/10/20 16:34 banana [BANANA] AdvReac Severe DIFFICULTY Verified 10/10/20 16:34 BREATHING morphine and related Allergy Unknown Hives Uncoded 09/12/20 17:13 Review of Systems Review of Systems: Constitutional : Complaining of chronic fatigue, generalized malaise, no fever ENT/Mouth : No Hearing loss, No Ear Pain, No Nasal Congestion, No Sinus Pain, No Hoarseness, No sore throat, No Rhinorrhea, No Swallowing Difficulty Eyes: No Eye Pain, No Swelling, No Redness, No Foreign Body, No Discharge, No Vision Changes, chronic icterus Cardiovascular : No Chest Pain, No SOB, No Dyspnea on Exertion, No Orthopnea, No Edema, No Palpitations Respiratory : No Cough, No Sputum, No Wheezing, No Smoke Exposure, No Dyspnea Gastrointestinal : patient complaining of abdominal distension and diffuse abdominal pain, unchanged for almost a week Genitourinary : No Dysuria, No Urinary Frequency, No Hematuria, No Urinary Incontinence, No Urgency, No Flank Pain, No Urinary Flow Changes, No Hesitancy Musculoskeletal : No joint pain, No Myalgias, No Joint Swelling Skin : No Skin Lesions, No rash Neuro : No Weakness, No Numbness, No Paresthesias, No Loss of Consciousness, No Dizziness, No Headache Psych : No Anxiety/Panic, No Depression, No SI/HI/AH/VH, No Social Issues, Heme/Lymph: No Bruising, No Bleeding,No Lymphadenopathy Endocrine : No Polyuria, No Polydipsia, No Temperature Intolerance [facility] Past Medical History Medical History Acute GI bleeding Acute metabolic encephalopathy Alcoholic cirrhosis of liver Asthma CHF (congestive heart failure) Chiari malformation CVA (cerebral vascular accident) Depression Depression with anxiety GI bleed Hemorrhoids Hepatitis C Hypokalemia NSVT (nonsustained ventricular tachycardia) Orthostatic hypotension Peptic ulcer disease Seizures Surgical History Gastric bypass status for obesity Hx of cholecystectomy Social History Social History Household Members: Family Housing: Apartment Alcohol intake: current Alcohol intake frequency: 0-2 drinks per day Alcohol type: beer and hard liquor Smoking Status: Current every day smoker Tobacco Type: Cigarette Cigarettes Per Day: 0.5 Years Smoked: 12 Second Hand Smoke Exposure: No Use of substances other than those prescribed or required for medical reasons: No Advance Directives: No Advance Directives Information Provided: No service: No Current occupational status: unemployed Physical Exam Vital Signs: Vital Signs: Last Vital Signs Temp 97.7 F 10/10/20 19:23 Pulse 96 10/10/20 19:23 Resp 18 10/10/20 19:23 BP 139/58 L 10/10/20 19:23 Pulse Ox 97 10/10/20 19:23 Body Mass Index 27.0 Appearance: Alert. Oriented X3. No acute distress. Eyes: Pupils equal, round and reactive to light. icteric sclera ENT: Pharynx normal. Neck: Normal inspection. Neck supple. No lymph nodes noted. No crepitus CVS: Normal heart rate and rhythm. Pulses normal. Normal S1 and S2 Respiratory: No respiratory distress. Breath sounds normal. No Wheezing. No rales Abdomen: Soft , distended, does not seem to be tender on deep palpation, No rigidity Skin: Skin warm and dry. Normal skin color. Normal skin turgor. Extremities: bilateral +3 pitting edema. No Lacerations. No Rash Neuro: Oriented X 3. No motor deficit. No sensory deficit. Moving all extermities. No slurred speech. Course Course Course Narrative: I discussed with the patient that we could go ahead and do paracentesis for symptomatic relief. Patient declined. Patient states that she feels very weak and has generalized pain, does not want to have a tap done today. Patient requesting to be admitted and states that she will agreed to a paracentesis tomorrow. I discussed the patient with the hospitalist, at this time, we will hold on given her a blood transfusion. Patient's will be redrawn in the morning and then it will be decided if the patient needs transfusion Medical Decision Making Lab Data Result diagrams: 10/10/20 17:10 10/10/20 17:10 Labs: Lab Results 10/10/20 10/10/20 10/10/20 Range/Units 17:10 17:10 17:10 WBC 13.7 H (4.8-10.8) X10*3/uL RBC 1.82 L (4.20-5.50) X10*6/uL Hgb 7.2 L (12.0-16.0) g/dl Hct 20.4 L* (37-47) % MCV 112.1 H (80-98) fL MCH 39.6 H (27.0-33.0) pg MCHC 35.3 H (31.0-35.0) g/dl RDW 19.9 H (11.0-16.0) % Plt Count 124 L (160-400) X10*3/uL MPV 9.4 (9.4-12.3) fL Immature Gran % (Auto) 0.6 H (0.0-0.4) % Neut % (Auto) 78.6 H (45-73) % Lymph % (Auto) 10.4 L (20-40) % [place] % (Auto) 9.6 (2-11) % Eos % (Auto) 0.4 (0-4) % Baso % (Auto) 0.4 (0-2) % Lymph # (Auto) 1.4 (1.2-4.9) X10*3/uL [place] # (Auto) 1.3 H (0.1-1.2) X10*3/uL Eos # (Auto) 0.1 (0.0-0.4) X10*3/uL Baso # (Auto) 0.1 (0.0-0.2) X10*3/uL Abs Immat Gran (auto) 0.08 H (0.00-0.03) X10*3/uL Absolute Neuts (auto) 10.8 H (2.0-8.3) X10*3/uL Absolute Nucleated RBC 0.000 (0.0-0.012) X10*3/uL Nucleated RBC % (auto) 0.0 (0.0-0.2) /100WBC Hold Purple Top PT (10.8-13.0) SEC INR (0.9-1.1) Whole Blood INR APTT (24.1-38.0) SEC Sodium (135-145) mmol/L Potassium (3.3-5.1) mmol/l Chloride (96-108) mmol/L Carbon Dioxide (22-29) mmol/L Anion Gap (12-20) BUN (9-16) mg/dL Creatinine (0.5-1.4) mg/dL Estim Creat Clear Calc Estimated GFR Random Glucose (60-115) mg/dL Lactic Acid (0.5-2.0) mmol/L Calcium (8.4-10.2) mg/dL Magnesium (1.6-2.6) mg/dL Total Bilirubin (0.0-1.0) mg/dL Direct Bilirubin (0.0-0.5) mg/dL AST (5-31) U/L ALT (0-31) U/L Alkaline Phosphatase (39-117) U/L Ammonia 122 H (13-55) umol/L Total Protein (6.5-8.0) g/dL Albumin 1.8 L (3.5-5.0) g/dL Lipase 18 (8-78) U/L Beta HCG, Quant mIU/mL Urine Color Urine Appearance Urine pH (5.0-8.0) Ur Specific [place] (1.005-1.025) Urine Protein (NEG-TRACE) MG/DL Urine Glucose (UA) (NEG) MG/DL Urine Ketones (NEG) MG/DL Urine Blood (NEG) Urine Nitrite (NEG) Ur Leukocyte Esterase (NEG) Urine RBC (0) /HPF Urine WBC (0-4) /HPF Ur Squamous Epith Cells /LPF Urine Bacteria /LPF Urine Test (NEGATIVE) Blood Type Antibody Screen 10/10/20 10/10/20 10/10/20 Range/Units 17:10 17:10 17:10 WBC (4.8-10.8) X10*3/uL RBC (4.20-5.50) X10*6/uL Hgb (12.0-16.0) g/dl Hct (37-47) % MCV (80-98) fL MCH (27.0-33.0) pg MCHC (31.0-35.0) g/dl RDW (11.0-16.0) % Plt Count (160-400) X10*3/uL MPV (9.4-12.3) fL Immature Gran % (Auto) (0.0-0.4) % Neut % (Auto) (45-73) % Lymph % (Auto) (20-40) % [place] % (Auto) (2-11) % Eos % (Auto) (0-4) % Baso % (Auto) (0-2) % Lymph # (Auto) (1.2-4.9) X10*3/uL [place] # (Auto) (0.1-1.2) X10*3/uL Eos # (Auto) (0.0-0.4) X10*3/uL Baso # (Auto) (0.0-0.2) X10*3/uL Abs Immat Gran (auto) (0.00-0.03) X10*3/uL Absolute Neuts (auto) (2.0-8.3) X10*3/uL Absolute Nucleated RBC (0.0-0.012) X10*3/uL Nucleated RBC % (auto) (0.0-0.2) /100WBC Hold Purple Top SEE NOTE PT 26.7 H (10.8-13.0) SEC INR 2.2 H (0.9-1.1) Whole Blood INR APTT 46.4 H (24.1-38.0) SEC Sodium 128 L (135-145) mmol/L Potassium 3.1 L (3.3-5.1) mmol/l Chloride 102 (96-108) mmol/L Carbon Dioxide 18 L (22-29) mmol/L Anion Gap 11 L (12-20) BUN 6 L (9-16) mg/dL Creatinine 0.78 (0.5-1.4) mg/dL Estim Creat Clear Calc 109.8 Estimated GFR > 60 Random Glucose 100 D (60-115) mg/dL Lactic Acid (0.5-2.0) mmol/L Calcium 7.2 L (8.4-10.2) mg/dL Magnesium 1.8 (1.6-2.6) mg/dL Total Bilirubin 13.5 H (0.0-1.0) mg/dL Direct Bilirubin 9.6 H (0.0-0.5) mg/dL AST 98 H (5-31) U/L ALT 14 (0-31) U/L Alkaline Phosphatase 155 H (39-117) U/L Ammonia (13-55) umol/L Total Protein 5.0 L (6.5-8.0) g/dL Albumin 1.8 L (3.5-5.0) g/dL Lipase (8-78) U/L Beta HCG, Quant mIU/mL Urine Color Urine Appearance Urine pH (5.0-8.0) Ur Specific [place] (1.005-1.025) Urine Protein (NEG-TRACE) MG/DL Urine Glucose (UA) (NEG) MG/DL Urine Ketones (NEG) MG/DL Urine Blood (NEG) Urine Nitrite (NEG) Ur Leukocyte Esterase (NEG) Urine RBC (0) /HPF Urine WBC (0-4) /HPF Ur Squamous Epith Cells /LPF Urine Bacteria /LPF Urine Test (NEGATIVE) Blood Type Antibody Screen 10/10/20 10/10/20 10/10/20 Range/Units 17:10 17:42 18:21 WBC (4.8-10.8) X10*3/uL RBC (4.20-5.50) X10*6/uL Hgb (12.0-16.0) g/dl Hct (37-47) % MCV (80-98) fL MCH (27.0-33.0) pg MCHC (31.0-35.0) g/dl RDW (11.0-16.0) % Plt Count (160-400) X10*3/uL MPV (9.4-12.3) fL Immature Gran % (Auto) (0.0-0.4) % Neut % (Auto) (45-73) % Lymph % (Auto) (20-40) % [place] % (Auto) (2-11) % Eos % (Auto) (0-4) % Baso % (Auto) (0-2) % Lymph # (Auto) (1.2-4.9) X10*3/uL [place] # (Auto) (0.1-1.2) X10*3/uL Eos # (Auto) (0.0-0.4) X10*3/uL Baso # (Auto) (0.0-0.2) X10*3/uL Abs Immat Gran (auto) (0.00-0.03) X10*3/uL Absolute Neuts (auto) (2.0-8.3) X10*3/uL Absolute Nucleated RBC (0.0-0.012) X10*3/uL Nucleated RBC % (auto) (0.0-0.2) /100WBC Hold Purple Top PT (10.8-13.0) SEC INR (0.9-1.1) Whole Blood INR APTT (24.1-38.0) SEC Sodium (135-145) mmol/L Potassium (3.3-5.1) mmol/l Chloride (96-108) mmol/L Carbon Dioxide (22-29) mmol/L Anion Gap (12-20) BUN (9-16) mg/dL Creatinine (0.5-1.4) mg/dL Estim Creat Clear Calc Estimated GFR Random Glucose (60-115) mg/dL Lactic Acid 0.9 (0.5-2.0) mmol/L Calcium (8.4-10.2) mg/dL Magnesium (1.6-2.6) mg/dL Total Bilirubin (0.0-1.0) mg/dL Direct Bilirubin (0.0-0.5) mg/dL AST (5-31) U/L ALT (0-31) U/L Alkaline Phosphatase (39-117) U/L Ammonia (13-55) umol/L Total Protein (6.5-8.0) g/dL Albumin (3.5-5.0) g/dL Lipase (8-78) U/L Beta HCG, Quant < 2 mIU/mL Urine Color Urine Appearance Urine pH (5.0-8.0) Ur Specific [place] (1.005-1.025) Urine Protein (NEG-TRACE) MG/DL Urine Glucose (UA) (NEG) MG/DL Urine Ketones (NEG) MG/DL Urine Blood (NEG) Urine Nitrite (NEG) Ur Leukocyte Esterase (NEG) Urine RBC (0) /HPF Urine WBC (0-4) /HPF Ur Squamous Epith Cells /LPF Urine Bacteria /LPF Urine Test (NEGATIVE) Blood Type O Negative Antibody Screen NEGATIVE 10/10/20 10/10/20 Range/Units 18:44 19:22 WBC (4.8-10.8) X10*3/uL RBC (4.20-5.50) X10*6/uL Hgb (12.0-16.0) g/dl Hct (37-47) % MCV (80-98) fL MCH (27.0-33.0) pg MCHC (31.0-35.0) g/dl RDW (11.0-16.0) % Plt Count (160-400) X10*3/uL MPV (9.4-12.3) fL Immature Gran % (Auto) (0.0-0.4) % Neut % (Auto) (45-73) % Lymph % (Auto) (20-40) % [place] % (Auto) (2-11) % Eos % (Auto) (0-4) % Baso % (Auto) (0-2) % Lymph # (Auto) (1.2-4.9) X10*3/uL [place] # (Auto) (0.1-1.2) X10*3/uL Eos # (Auto) (0.0-0.4) X10*3/uL Baso # (Auto) (0.0-0.2) X10*3/uL Abs Immat Gran (auto) (0.00-0.03) X10*3/uL Absolute Neuts (auto) (2.0-8.3) X10*3/uL Absolute Nucleated RBC (0.0-0.012) X10*3/uL Nucleated RBC % (auto) (0.0-0.2) /100WBC Hold Purple Top PT (10.8-13.0) SEC INR (0.9-1.1) Whole Blood INR Cancelled APTT (24.1-38.0) SEC Sodium (135-145) mmol/L Potassium (3.3-5.1) mmol/l Chloride (96-108) mmol/L Carbon Dioxide (22-29) mmol/L Anion Gap (12-20) BUN (9-16) mg/dL Creatinine (0.5-1.4) mg/dL Estim Creat Clear Calc Estimated GFR Random Glucose (60-115) mg/dL Lactic Acid (0.5-2.0) mmol/L Calcium (8.4-10.2) mg/dL Magnesium (1.6-2.6) mg/dL Total Bilirubin (0.0-1.0) mg/dL Direct Bilirubin (0.0-0.5) mg/dL AST (5-31) U/L ALT (0-31) U/L Alkaline Phosphatase (39-117) U/L Ammonia (13-55) umol/L Total Protein (6.5-8.0) g/dL Albumin (3.5-5.0) g/dL Lipase (8-78) U/L Beta HCG, Quant mIU/mL Urine Color PATO Urine Appearance HAZY Urine pH 7.0 (5.0-8.0) Ur Specific [place] 1.015 (1.005-1.025) Urine Protein 1+ H (NEG-TRACE) MG/DL Urine Glucose (UA) 100 H (NEG) MG/DL Urine Ketones 5 (NEG) MG/DL Urine Blood TRACE (NEG) Urine Nitrite POS H (NEG) Ur Leukocyte Esterase 2+ H (NEG) Urine RBC 1-4 (0) /HPF Urine WBC 10-14 H (0-4) /HPF Ur Squamous Epith Cells 3+ /LPF Urine Bacteria 2+ /LPF Urine Test NEGATIVE (NEGATIVE) Blood Type Antibody Screen Discharge Plan Discharge Clinical Impression: Ascites, Abdominal pain, chronic, generalized, Weakness Patient Disposition: Admitted As Inpatient Prescriptions: No Action trazodone 50 mg tablet 50 mg PO BEDTIME Qty: 30 RF: 0 midodrine 5 mg tablet 5 mg PO TID Qty: 90 RF: 1 ferrous sulfate 15 mg iron (75 mg)/mL drops 5 ml PO DAILY RF: 0 sucralfate 1 gram Tablet 1 g PO QIDACHS Qty: 120 RF: 0 hydroxyzine HCl 25 mg Tablet 25 mg PO Q6H PRN (Reason: Anxiety) Qty: 60 RF: 0 pantoprazole 40 mg tablet,delayed release (DR/EC) 40 mg PO BID Qty: 60 RF: 3 oxycodone 5 mg tablet 5 mg PO BID MDD 10 PRN (Reason: pain) Qty: 10 RF: 0 mirtazapine 15 mg tablet,disintegrating 1 tab sublingual BEDTIME RF: 0
[2020-10-10 19:05] LABS: HCG Quantitative < 2 mIU/mL
[2020-10-10 19:17] LABS: Appearance Urine HAZY; Color Urine AMBER
[2020-10-10 19:19] LABS: Bacteria Urine 2+ /LPF; Squamous Epithelial Cell Urine 3+ /LPF
[2020-10-10 19:20] LABS: UPreg QC Valid YES; Urine Pregnancy NEGATIVE (NEGATIVE)
[2020-10-10 19:23] VITALS: BP 139/58; PULSE 96; RESP 18; TEMP 36.5; O2SAT 97
[2020-10-10] MEDS: iohexoL 350 MG/ML 100 ML INFUS..BTL IV (19:55)
--- NOTE | 2020-10-10 20:51 | PC.NURSE ---
PATIENT W/VERY POOR IV ACCESS TO START, IV INFILTRATED IN CT SCAN. PER MD WILL PLAN FOR U/S GUIDED IV PLACEMENT
[2020-10-10 21:09] VITALS: BP 104/48; PULSE 98; RESP 20; TEMP 36.7; O2SAT 98
--- NOTE | 2020-10-10 22:26 | PC.NURSE ---
PLACED BY DR POTTS.
--- NOTE | 2020-10-10 22:26 | PC.NURSE ---
PATIENT REQUESTING WATER AND CRACKERS. WATER OK PER DR POTTS.
[2020-10-10] MEDS: cefTRIAXone sodium 1 GM in 0.9 % Sodium Chloride 50 ML IV (22:52)
[2020-10-10] MEDS: Lidocaine HCl 2 % MPF 5 ML VIAL 10 ML INFILTRATI (22:54)
--- NOTE | 2020-10-10 23:02 | P.HPHOSP_ITS ---
History of Present Illness Date of Service: 10/10/20 Chief Complaint: abdominal pain this is a 30-year-old female who is very familiar to our service with frequent admissions in the past regarding various reason who has a history of gastritis/GERD, Chiari malformation, CVA, alcoholic cirrhosis, who presents to the hospital with complaints of abdominal pain, back pain, lower extremity edema. patient reports that her pain has been going on for the past 2 weeks. patient was recently admitted to the hospital and discharged on the 07 of October for similar presentation. At that time she underwent endoscopy, and colonoscopy when was found to have colitis. As well as portal hypertensive gastropathy, and ulcerated Esophagitis. Patient describes the abdominal pain is diffuse, nonradiating, 08/14, she is teary eyed, crying, stating that her pain is not controlled. She is also complaining of lower extremity edema, mild shortness of breath on exertion, no cough, no fever or chills. No urinary sympt oms,. She describes chronic diarrhea that has not changed. She was offered therapeutic paracentesis in the ED but patient refused. she was also offered a therapeutic brain since his prior to discharge and the and refused at that time. she also reports that she noticed The white of her eyes turned yellow since yesterday. On arrival to the ED Hemodynamically stable labs are significant for hemoglobin of 7.6 which is around her baseline, WBC count of 13.7 which is also lower than her discharge day, PT INR of 26.7 and 2.2, sodium of 128 ( 130 on the 3rd), potassium of 3.1, total bili of 13.5 (14 on recent admission), alk phos of 155, AST of 98, ammonia of 122, Past medical history: alcoholic liver cirrhosis, CVA with right-sided weakness, peptic altered disease, gastritis, hepatitis-C, chronic diarrhea, depression, history of an SVT, diabetes that resolved after gastric bypass surgery asthma, history of seizure disorder no longer on medication. CHF? surgical history: Budd-Chiari malformation, cholecystectomy, gastric bypass family history: CAD, stroke social history: Comes from reports that she has not drank alcohol in 9 days, smokes 1 pack per day, denies illicit drug use Review of Systems Review of Systems: Yes all other systems are reviewed and are negative [facility] Medical History Acute GI bleeding Acute metabolic encephalopathy Alcoholic cirrhosis of liver Asthma CHF (congestive heart failure) Chiari malformation CVA (cerebral vascular accident) Depression Depression with anxiety GI bleed Hemorrhoids Hepatitis C Hypokalemia NSVT (nonsustained ventricular tachycardia) Orthostatic hypotension Peptic ulcer disease Seizures Surgical History Gastric bypass status for obesity Hx of cholecystectomy Social History Household Members: Family Housing: Apartment Alcohol intake: current Alcohol intake frequency: 0-2 drinks per day Alcohol type: beer and hard liquor Smoking Status: Current every day smoker Tobacco Type: Cigarette Packs Per Day: 1 Cigarettes Per Day: 20.0 Years Smoked: 12 Smoked in Last 30 Days: Yes Patient Interested in Nicotine Replacement: No Patient Given Instructions on How to Stop Smoking: Yes Date Education Initiated: 10/11/20 Second Hand Smoke Exposure: Yes Use of substances other than those prescribed or required for medical reasons: No Currently Displaying Signs/Symptoms of Drug Intoxication Withdrawal: No Any prior treatment program specific to substance use: No Advance Directives: No Advance Directives Information Provided: No Do you have thoughts of harming others: None Do you have a plan to hurt others: No Plan Recently lost weight without trying: No service: No Current occupational status: unemployed Meds Allergies Allergy/AdvReac Type Severity Reaction Status Date / Time morphine [MORPHINE] Allergy Mild HIVES Verified 10/10/20 16:34 banana [BANANA] AdvReac Severe DIFFICULTY Verified 10/10/20 16:34 BREATHING morphine and related Allergy Unknown Hives Uncoded 09/12/20 17:13 Home Medications Medication Instructions Recorded Confirmed Type mirtazapine 1 tab SUBLINGUAL BEDTIME 09/09/20 10/10/20 History ferrous sulfate 5 ml PO DAILY 10/02/20 10/10/20 History Physical Exam Vital Signs and Narrative: Vital Signs: Last Vital Signs Temp 98.0 F 10/10/20 21:09 Pulse 98 10/10/20 21:09 Resp 20 10/10/20 21:09 BP 104/48 L 10/10/20 21:09 Pulse Ox 98 10/10/20 21:09 Body Mass Index 27.0 Const: General: cooperative and no acute distress Orientation/consciousness: patient oriented x3 Eyes: General: appearance normal, both eyes and all related structures Pupils: Equal, round and reactive pupils present Resp: Effort & Inspection: normal respiratory effort and able to speak in complete sentences Auscultation: clear to auscultation bilaterally Cardio: Rate: regular rate Rhythm: regular rhythm GI: Other: significantly distended abdomen 3+, Auscultation: normal bowel sounds Skin: General skin exam: no rashes or lesions noted Neuro: General: patient oriented x3 Cranial nerves: Yes Equal, round and reactive pupils present Cognition (Neuro): normal cognition Extrem: Other: 2+ pedal edema bilaterally General: Yes normal to inspection Results Labs CBC and Chem 7: 10/10/20 17:10 10/10/20 17:10 Labs: Laboratory Results - last 24 hr 10/10/20 10/10/20 10/10/20 17:10 17:10 17:10 MCV 112.1 H MCH 39.6 H MCHC 35.3 H RDW 19.9 H Plt Count 124 L MPV 9.4 Immature Gran % (Auto) 0.6 H Neut % (Auto) 78.6 H Lymph % (Auto) 10.4 L Caldwell % (Auto) 9.6 Eos % (Auto) 0.4 Baso % (Auto) 0.4 Lymph # (Auto) 1.4 Caldwell # (Auto) 1.3 H Eos # (Auto) 0.1 Baso # (Auto) 0.1 Abs Immat Gran (auto) 0.08 H Absolute Neuts (auto) 10.8 H Absolute Nucleated RBC 0.000 Nucleated RBC % (auto) 0.0 Hold Purple Top PT INR Whole Blood INR APTT Anion Gap Estim Creat Clear Calc Estimated GFR Random Glucose Lactic Acid Calcium Magnesium Total Bilirubin Direct Bilirubin AST ALT Alkaline Phosphatase Ammonia 122 H Total Protein Albumin 1.8 L Lipase 18 Beta HCG, Quant Urine Color Urine Appearance Urine pH Ur Specific [place] Urine Protein Urine Glucose (UA) Urine Ketones Urine Blood Urine Nitrite Ur Leukocyte Esterase Urine RBC Urine WBC Ur Squamous Epith Cells Urine Bacteria Urine Test Blood Type Antibody Screen 10/10/20 10/10/20 10/10/20 17:10 17:10 17:10 MCV MCH MCHC RDW Plt Count MPV Immature Gran % (Auto) Neut % (Auto) Lymph % (Auto) Caldwell % (Auto) Eos % (Auto) Baso % (Auto) Lymph # (Auto) Caldwell # (Auto) Eos # (Auto) Baso # (Auto) Abs Immat Gran (auto) Absolute Neuts (auto) Absolute Nucleated RBC Nucleated RBC % (auto) Hold Purple Top SEE NOTE PT 26.7 H INR 2.2 H Whole Blood INR APTT 46.4 H Anion Gap 11 L Estim Creat Clear Calc 109.8 Estimated GFR > 60 Random Glucose 100 D Lactic Acid Calcium 7.2 L Magnesium 1.8 Total Bilirubin 13.5 H Direct Bilirubin 9.6 H AST 98 H ALT 14 Alkaline Phosphatase 155 H Ammonia Total Protein 5.0 L Albumin 1.8 L Lipase Beta HCG, Quant Urine Color Urine Appearance Urine pH Ur Specific [place] Urine Protein Urine Glucose (UA) Urine Ketones Urine Blood Urine Nitrite Ur Leukocyte Esterase Urine RBC Urine WBC Ur Squamous Epith Cells Urine Bacteria Urine Test Blood Type Antibody Screen 10/10/20 10/10/20 10/10/20 17:10 17:42 18:21 MCV MCH MCHC RDW Plt Count MPV Immature Gran % (Auto) Neut % (Auto) Lymph % (Auto) Caldwell % (Auto) Eos % (Auto) Baso % (Auto) Lymph # (Auto) Caldwell # (Auto) Eos # (Auto) Baso # (Auto) Abs Immat Gran (auto) Absolute Neuts (auto) Absolute Nucleated RBC Nucleated RBC % (auto) Hold Purple Top PT INR Whole Blood INR APTT Anion Gap Estim Creat Clear Calc Estimated GFR Random Glucose Lactic Acid 0.9 Calcium Magnesium Total Bilirubin Direct Bilirubin AST ALT Alkaline Phosphatase Ammonia Total Protein Albumin Lipase Beta HCG, Quant < 2 Urine Color Urine Appearance Urine pH Ur Specific [place] Urine Protein Urine Glucose (UA) Urine Ketones Urine Blood Urine Nitrite Ur Leukocyte Esterase Urine RBC Urine WBC Ur Squamous Epith Cells Urine Bacteria Urine Test Blood Type O Negative Antibody Screen NEGATIVE 10/10/20 10/10/20 18:44 19:22 MCV MCH MCHC RDW Plt Count MPV Immature Gran % (Auto) Neut % (Auto) Lymph % (Auto) Caldwell % (Auto) Eos % (Auto) Baso % (Auto) Lymph # (Auto) Caldwell # (Auto) Eos # (Auto) Baso # (Auto) Abs Immat Gran (auto) Absolute Neuts (auto) Absolute Nucleated RBC Nucleated RBC % (auto) Hold Purple Top PT INR Whole Blood INR Cancelled APTT Anion Gap Estim Creat Clear Calc Estimated GFR Random Glucose Lactic Acid Calcium Magnesium Total Bilirubin Direct Bilirubin AST ALT Alkaline Phosphatase Ammonia Total Protein Albumin Lipase Beta HCG, Quant Urine Color PATO Urine Appearance HAZY Urine pH 7.0 Ur Specific Roosevelt 1.015 Urine Protein 1+ H Urine Glucose (UA) 100 H Urine Ketones 5 Urine Blood TRACE Urine Nitrite POS H Ur Leukocyte Esterase 2+ H Urine RBC 1-4 Urine WBC 10-14 H Ur Squamous Epith Cells 3+ Urine Bacteria 2+ Urine Test NEGATIVE Blood Type Antibody Screen Imaging Radiologist's Impressions: Impressions Abdomen/Pelvis CT 10/10/20 17:24 IMPRESSION: 1. Hepatosplenomegaly with a moderate to large amount of ascites, slightly increased in volume when compared to the prior study. No focal liver masses are seen. 2. Continued wall thickening and mural edema involving the entire colon, especially on the right consistent with most likely infection or inflammatory conditions. Assessment and Plan (1) Abdominal pain, chronic, generalized: Status: Acute (2) Gastric ulcer: Status: Acute (3) Anemia: Status: Acute (4) Ascites: Qualifiers: Ascites type: due to alcoholic hepatitis Qualified Code(s): K70.11 - Alcoholic hepatitis with ascites Status: Acute (5) Alcohol abuse: Status: Acute (6) Alcoholic cirrhosis of liver: Status: Acute (7) CVA (cerebral vascular accident): Problem details: right-sided weakness Status: Acute (8) Hyponatremia: Status: Acute (9) Hyperammonemia: Status: Acute (10) Hypoalbuminemia: Status: Acute (11) UTI (urinary tract infection): Status: Acute this is a 30-year-old female who presents to the hospital with vague symptoms of abdominal pain, abdominal distension and lower extremity edema # abdominal pain - most likely secondary to ascites, patient refused paracentesis on her discharge on the 3rd, refused paracentesis in the ED, just requesting pain medication for intractable pain - I explained extensively to the patient that most of her pain is most likely because of ascites and will need paracentesis and patient agreed to undergo paracentesis in a.m. - she recently underwent an EGD as well as colonoscopy in found to have portal hypertensive gastropathy as well as ulcerated esophagitis and was treated with pantoprazole and Carafate. Patient reports compliance - apparently this pain is chronic and has not improved on discharge on the 3rd - low concern for SBP as patient has improving leukocytosis, afebrile, and the pain is not acute plan: - Pain control - consult IR for paracentesis in a.m. - symptomatic management - continue pantoprazole, Carafate # abdominal ascites as well as lower extremity edema - in the setting of liver cirrhosis, - patient has albumin of 1.8 which is most likely contributing to her lower extremity edema as well as abdominal ascites - no hypoxia Plan: - Will give her 1 dose of Lasix 40 mg IV - therapeutic paracentesis - GI is also consulted for possibly starting patient on spironolactone/furosemide combination for her chronic ascites and liver cirrhosis # UTI - patient asymptomatic - will start on ceftriaxone 1 mg IV daily, urine cultures collected will follow # hyperammonemia - not encephalopathic at this time - will start on lactulose t.i.d. # hyponatremia - around her baseline, most likely secondary to liver disease - will follow BMP # hypokalemia - most likely secondary to low oral intake - repleted - follow BMP # history of esophageal gastritis - continue Carafate, as well as pantoprazole b.i.d. DVT prophylaxis: Enoxaparin
[2020-10-10 23:05] LABS: IDNOW Serial# 9DD0AD1C
[2020-10-10 23:06] LABS: COVID-19 Test Negative (Negative)
[2020-10-10] MEDS: HYDROmorphone HCl 0.5 MG/0.5 ML SYRINGE IVPUSH (23:42)
--- NOTE | 2020-10-11 00:20 | US_ITS ---
EXAMINATION: ULTRASOUND-GUIDED PARACENTESIS. CLINICAL INFORMATION: Ascites. COMPARISON: None TECHNIQUE: Following explaining ultrasound-guided paracentesis procedure, benefits and risk, a written consent was obtained. Patient was placed supine on ultrasound stretcher and preliminary ultrasound imaging was obtained. An optimal site was selected along the left lower quadrant and marked. The marked site was cleaned and draped in usual sterile manner. 1% lidocaine was injected at the puncture site. Through a small skin incision a 4 [place] Renegade Gameseh catheter was advanced into the peritoneal space. After observing fluid return, stylet was withdrawn and catheter connected to vacuum bottle via connecting cannula. After obtaining all fluid and observing no more fluid return, catheter was removed and complete hemostasis achieved at puncture site. Post procedure sterile band aid applied. Patient tolerated procedure extremely well. FINDINGS: On preliminary ultrasound imaging there is moderate fluid seen within the abdomen. Approximately 4.8 L of yellow fluid was taken from the right lower quadrant. US/US paracentesis abd w/image IMPRESSION: Successful ultrasound-guided therapeutic paracentesis performed with approximately 4.8 L of yellow fluid was removed. None of this fluid was sent to lab.
[2020-10-11 00:47] VITALS: BP 90/52; PULSE 99; RESP 14; TEMP 36.7; O2SAT 97
[2020-10-11] MEDS: 0.9 % Sodium Chloride Flush 3 ML SYRINGE IVFLUSH ×2 (00:49→08:58)
[2020-10-11 04:00] VITALS: BP 100/53; PULSE 98; RESP 14; TEMP 37.1; O2SAT 97
[2020-10-11 04:35] LABS: MANUAL DIFF FLAG NO
[2020-10-11 04:41] LABS: Basophils Absolute Auto 0.1 X10*3/uL (0.0-0.2); Basophils Percent Auto 0.4 % (0-2); Eosinophils Absolute Auto 0.2 X10*3/uL (0.0-0.4); Eosinophils Percent Auto 1.3 % (0-4); Imm Gran Abs Auto 0.08 X10*3/uL (0.00-0.03); Imm Gran Pct Auto 0.6 % (0.0-0.4); Lymphocytes Absolute Auto 1.5 X10*3/uL (1.2-4.9); Lymphocytes Percent Auto 11.8 % (20-40); Mean Corpuscular HGB Conc 33.5 g/dl (31.0-35.0); Mean Corpuscular Hemoglobin 37.8 pg (27.0-33.0); Mean Platelet Volume 9.8 fL (9.4-12.3); Monocytes Absolute Auto 1.4 X10*3/uL (0.1-1.2); Monocytes Percent Auto 11.1 % (2-11); Neutrophils Absolute Auto 9.4 X10*3/uL (2.0-8.3); Neutrophils Percent Auto 74.8 % (45-73); Platelet Count 130 X10*3/uL (160-400); Red Blood Count 1.85 X10*6/uL (4.20-5.50); White Blood Count 12.6 X10*3/uL (4.8-10.8)
[2020-10-11 04:53] LABS: Hematocrit 20.9 % (37-47)
[2020-10-11 05:04] LABS: Anion Gap 11 (12-20); Blood Urea Nitrogen 6 mg/dL (9-16); Carbon Dioxide 18 mmol/L (22-29); Chloride 102 mmol/L (96-108); Creatinine Clr Calc Pharmacy 117.3; Estimated Glomerular Filt Rate > 60; Glucose Random 110 mg/dL (60-115); Potassium 2.9 mmol/l (3.3-5.1); Sodium 128 mmol/L (135-145)
[2020-10-11] MEDS: HYDROmorphone HCl 0.5 MG/0.5 ML SYRINGE IVPUSH ×2 (05:26→10:15)
[2020-10-11] MEDS: Furosemide 40 MG/4 ML VIAL IVPUSH (05:28)
[2020-10-11] MEDS: Lactulose 20 GM/30 ML SOLUTION 30 GM PO ×2 (05:30→08:58)
[2020-10-11 07:43] VITALS: BP 93/51; PULSE 95; RESP 16; TEMP 36.3; O2SAT 97
[2020-10-11 07:55] LABS: Glucose, Whole Blood 103 mg/dL (60-115)
[2020-10-11] MEDS: Sucralfate 1 GM TABLET PO (08:57)
[2020-10-11] MEDS: Omeprazole 20 MG CAPSULE.DR PO (08:57)
[2020-10-11] MEDS: Potassium Chloride Packet 20 MEQ PACKET 40 MEQ PO (08:57)
[2020-10-11] MEDS: Nicotine 21 MG PATCH.TD24 TRANSDERMA (08:58)
[2020-10-11] MEDS: Lidocaine HCl 1 % MPF 5 ML VIAL SUBCUT (11:18)
--- NOTE | 2020-10-11 11:23 | HO.PM.IMPN ---
Subjective Subjective Date of Service: 10/11/20 Interval History: abd pain Cardiovascular Cardiovascular: Reports no additional cardiovascular complaints Respiratory Respiratory: Reports no additional respiratory complaints Physical Exam Vital Signs: Vital Signs: Last Vital Signs Temp 97.3 F 10/11/20 07:43 Pulse 95 10/11/20 07:43 Resp 16 10/11/20 07:43 BP 93/51 L 10/11/20 07:43 Pulse Ox 97 10/11/20 07:43 Body Mass Index 27.0 General: AO X 3, no acute distress until i came into the room, then squirming stating shes in pain, juandice Resp: CTA bilateral CVS: S1,S2,RRR GI: soft, tender, distended but not tense Neuro: motor grossly intact Psych: appropriate affect Objective Data Current Medications Generic Name Dose Route Start Last Admin Trade Name Freq PRN Reason Stop Dose Admin Acetaminophen 650 mg 10/11/20 00:20 Acetaminophen 325 Mg Tablet PO Q8H PRN Pain, Mild (Pain Scale 1-3) Docusate Sodium 100 mg 10/11/20 00:20 Docusate Sodium 100 Mg Capsule PO DAILY PRN Constipation Enoxaparin Sodium 40 mg 10/11/20 06:00 10/11/20 05:36 Enoxaparin Sodium 40 Mg/0.4 Ml Syringe SUBCUT Not Given Q24H ALTHEA Hydroxyzine HCl 25 mg 10/11/20 04:53 Hydroxyzine Hcl 25 Mg Tablet PO Q6H PRN Anxiety Ceftriaxone Sodium 1 gm/ 50 mls @ 100 mls/hr 10/10/20 23:00 10/11/20 00:44 Sodium Chloride IV Not Given Q24H ALTHEA Lactulose 30 gm 10/11/20 05:00 10/11/20 08:58 Lactulose 20 Gm/30 Ml Solution PO 30 gm TID ALTHEA Administration Nicotine 21 mg 10/11/20 09:00 10/11/20 08:58 Nicotine 21 Mg Patch.Td24 TRANSDERMA 21 mg DAILY ALTHEA Administration Omeprazole 20 mg 10/11/20 09:00 10/11/20 08:57 Omeprazole 20 Mg Capsule.Dr PO 20 mg BID ALTHEA Administration Ondansetron HCl 4 mg 10/11/20 00:20 Ondansetron Hcl 4 Mg/2 Ml Vial IVPUSH Q8H PRN Nausea and Vomiting Potassium Chloride 40 meq 10/11/20 09:00 10/11/20 08:57 Potassium Chloride Packet 20 Meq Packet PO 10/11/20 21:01 40 meq BID ALTHEA Administration Sodium Chloride 3 ml 10/11/20 00:20 10/11/20 08:58 0.9 % Sodium Chloride Flush 3 Ml Syringe IVFLUSH 3 ml QSHIFT ALTHEA Administration Sucralfate 1 gm 10/11/20 07:30 10/11/20 08:57 Sucralfate 1 Gm Tablet PO 1 gm QIDACHS ALTHEA Administration Trazodone HCl 50 mg 10/11/20 21:00 Trazodone Hcl 50 Mg Tablet PO BEDTIME [facility] Labs CBC & Chem 7: 10/11/20 04:25 10/11/20 04:25 Microbiology Microbiology Results: Microbiology 10/10/20 19:22 Urine clean catch - Clean Catch Midstream Urine Culture - Preliminary Culture in progress. Assessment and Plan (1) Alcoholic cirrhosis of liver: Status: Acute (2) Ascites: Status: Acute (3) Gastric ulcer: Status: Acute (4) Acute alcoholic hepatitis: Status: Acute Assessment and Plan: 30F presented with abdominal pain symptomatic ascites in patient with alcoholic hepatitis who continues to drink alcohol. Plan for paracentesis patient has demonstrated opiate dependent behavior, Will aim to limit opiates as much as possible, but will still prescribe when appropriate for pain. no evidence of withdrawal at this time peptic ulcer PPI Carafate hypokalemia potassium supplement, monitor
[2020-10-11 11:31] VITALS: BP 91/51; PULSE 95; RESP 21; TEMP 36.5; O2SAT 97
--- NOTE | 2020-10-11 11:47 | PM.EVENT ---
Event Note Date of Service: 10/11/20 Event Note: AMA discharge summary: discharge diagnoses: Alcoholic hepatitis symptomatic ascites hypokalemia history of presentation: 30-year-old female with history of alcoholic hepatitis who continues to drink alcohol presented with abdominal pain and abdominal distention. Found to have large ascites. She was admitted overnight for pain control and paracentesis planned for the a.m.. Hospital course: Patient underwent paracentesis. She was also given potassium supplement for hypokalemia. Plan was to monitor patient for hypotension post paracentesis and for potassium repletion. However, patient refused to stay and wished to leave against medical advice. She was aware of the risk of doing so such as hypotension and syncope and . She would like to leave against medical advice anyways.
--- NOTE | 2020-10-11 12:11 | MHC.CM.PN ---
This RN met w/pt who is alert and oriented. Pt lives at home w/mother, pt continues to see PCP Wilder Hernandez and is followed by [facility], pt admits to etoh use, denies illicit drug use and declines to speak w/ someone from Care Team, pt encouraged to call case management if she changes her mind. Pt ended assessment early, reporting she was in pain. Will follow-up w/pt. Current plan to discharge home w/ no services, family to transport home.
--- NOTE | 2020-10-11 12:19 | PC.NURSE ---
PATIENT RETURNED FROM PARACENTESIS. STATES SHE IS IN 10/10 PAIN, STATING THAT IF SHE DOESN'T GET ANYTHING FOR PAIN SHE WILL LEAVE AND GO TO ANOTHER HOSPITAL . NOTIFIED DOCTOR SOREN OF PATIENT'S PAIN AND REQUESTS. DOCTOR CAME AND SPOKE TO THE PATIENT. THE PATIENT SAID SHE WAS LEAVING AGAINST MEDICAL ADVICE. PATIENT EDUCATED ON RISKS OF LEAVING. PATIENT WAS SUPPOSED TO BE BEDREST FOR TWO HOURS AND VITALS WERE SUPPOSED TO BE MONITORED CLOSELY FOR TWO HOURS, MD AWARE AND STATES WE CANNOT KEEP HER AGAINST HER WILL . PATIENT IVS REMOVED PRIOR TO DISCHARGE. PATIENT SIGNED AMA PAPERWORK. NOTIFIED NURSING DIRECTOR STAGE.
--- NOTE | 2020-10-11 13:03 | MHC.CM.PN ---
Informed by nursing staff pt discharged AMA.
== END 2020-10-11 12:10 | disposition left against medical advice (07) | DRG 432 ==
LOC: HO.ED 20:59 → HO.S3 23:24
PROVIDERS: Physician Assistant Medical; Admitting Provider Internal Medicine; Emergency Provider Emergency Medicine; PCP Family Medicine; Visit Provider Internal Medicine
DX: K70.11 Alcoholic hepatitis with ascites (principal); I82.0 Budd-Chiari syndrome; N39.0 Urinary tract infection, site not specified; E87.1 Hypo-osmolality and hyponatremia; F32.9 Major depressive disorder, single episode, unspecified; F41.9 Anxiety disorder, unspecified; Z98.84 Bariatric surgery status; Z20.828 Contact with and (suspected) exposure to other viral communicable diseases; F17.210 Nicotine dependence, cigarettes, uncomplicated; Z71.6 Tobacco abuse counseling; K70.31 Alcoholic cirrhosis of liver with ascites; E87.6 Hypokalemia; F10.10 Alcohol abuse, uncomplicated; Z79.899 Other long term (current) drug therapy
CPT/HCPCS: 36415; 49083; 74177; 80048; 80076; 81001; 81003; 81025; 82040; 82140; 82947; 83605; 83690; 83735; 84702; 85025; 85610; 85730; 86850; 86900; 86901; 87040; 87086; 87088; 87186; 87635; 96365; 96372; 96375; 99284; J0696; J1170; J1200; J1940; J2270; J2405; Q9967

== ENCOUNTER → 2020-10-14 13:03 | Outpatient (REF) | payer MEDICARE, MEDICAID, SELFPAY ==
--- NOTE | 2020-10-14 13:07 | CA_ITS ---
Transthoracic Echocardiogram Patient (Last, First, Middle): Mireya Zamora, Gender: Female Date of : 1990 Age: 30 Procedure Date: 10/14/2020 Procedure Type: Transthoracic Echocardiogram Location: OP Height: 167.64 cm Weight: 68.49 kg BSA: 1.77 m2 Heart Rate: bpm BP: 94 / 38 mmHg Lunchroom Mother: SANNA Referring MD: Dori Lynn INSOLE COVERERAnamika Symptoms: I50.9 - Heart failure, unspecified Study Quality: Good ECG Rhythm: Sinus Conclusions: - The left ventricular systolic function is normal. The visually estimated ejection fraction is between 65-70%. - No obvious valvular pathology seen on this study. Findings Left Ventricle Normal left ventricular cavity size. There is normal left ventricular wall thickness. The left ventricular systolic function is normal. The visually estimated ejection fraction is between 65-70%. There is no evidence of regional wall motion abnormalities. Diastolic function is normal for age. Right Ventricle Normal right ventricular cavity size and systolic function. Atria Both atria are normal in size. Aortic Valve There is a normal trileaflet aortic valve. There is no aortic valve stenosis. There is no aortic valve regurgitation. Mitral Valve The mitral valve appears normal. There is no mitral valve regurgitation. There is no mitral valve stenosis. Pulmonic Valve The pulmonic valve was not well visualized. Tricuspid Valve Normal tricuspid valve structure. There is trace tricuspid valve regurgitation. The pulmonary artery systolic pressure is normal. Great Vessels The aortic annulus, sinuses of valsalva, and asc aorta are normal in size. Venous The inferior vena cava was not well visualized. Pericardium/Pleural There is a large left sided pleural effusion. Mass like density noted in the pleural space. Consider chest CT for further evaluation if clinically indicated. Prior Study Comparison No significant change compared to prior study dated: 01/17/2020. Recommendations, Care & Conclusions No obvious valvular pathology seen on this study. Measurements 2D Linear Measurements IVSd: 0.85 0.6-0.9/0.6-1.0 cm LVIDd: 4.49 3.9-5.3/4.2-5.9 cm LVIDd Index: 2.54 2.4-3.2/2.2-3.1 cm/m2 LVIDs: 2.57 2.0-3.6 cm LVPWd: 0.85 0.7-1.1 cm Ao Root: 2.90 2.1-3.5 cm LA Diam: 2.80 2.7-3.8/3.0-4.0 cm LAIDs Index: 1.58 1.5-2.3 cm/m2 LV Mass: 152.88 67-162/88-224 g LV Mass Index: 86.37 43-95/49-115 g/m2 LVOT Diam: 2.10 3.0+(-)1.3 cm 2D Systolic Function EF 4C: 70.60 >55% EF 2C: 73.30 >55% EF BiP: 72.20 >55% Mitral Valve MV Pk E: 0.98 MV PK A: 0.83 MV Decel Time: 123.00 E/A: 1.20 E'Lateral: 17.40 E'Medial: 10.40 E/E' Med: 9.40 E/E' Lat: 5.60 PHT: 36.00 MVA PHT: 6.11 Decel [place]: 7.91 Aortic Valve AoV Pk Edson: 1.44 AoV Pk Grad: 8.00 LVOT LVOT Pk Edson: 1.11 LVOT Mn Edson: 0.71 LVOT VTI: 0.23 LVOT Pk Grad: 5.00 LVOT Mn Grad: 2.00 LVOT Diam: 2.10 LVOT Area: 3.46 Diastolic Function MV Pk E: 0.98 MV Pk A: 0.83 E/A: 1.20 E'Medial: 10.40 E/E' Med: 9.40 E' Laterial: 17.40 E/E' Lat: 5.60 Tricuspid Valve TR Pk Edson: 2.20 TR Pk Grad: 19.00 RA Press: 3.00 RVSP: 22.00 Great Vessels Aorta Ao Root-2D: 2.90 2.0-3.7 cm Ao Asc: 2.90 2.1-3.4 cm Ao Arch: 2.20 Updated in Other Vendor System with Status of Final Brigido Mejia MD electronically signed on 10/16/2020 1:03:03 PM with status of Final
== END ==
LOC: HO.CARD 13:03
PROVIDERS: PCP Family Medicine; Visit Provider Nurse Practitioner Family
DX: I50.9 Heart failure, unspecified (principal); I63.9 Cerebral infarction, unspecified; K70.30 Alcoholic cirrhosis of liver without ascites; K70.11 Alcoholic hepatitis with ascites
CPT/HCPCS: 93306

== ENCOUNTER 2020-11-05 01:00 | Inpatient (IN) | payer MEDICARE, MEDICAID, SELFPAY ==
[2020-11-05] VITALS (15 sets, daily range): BP systolic 91–118; BP diastolic 54–73; PULSE 72–89; RESP 16–20; TEMP 36.2–36.6; O2SAT 98–100; BMI 31.3
--- NOTE | 2020-11-05 01:14 | ED_ITS ---
HPI - General Adult General Chief complaint: General Medical Stated complaint: CHF Time Seen by Provider: 11/05/20 01:04 Source: patient Mode of arrival: EMS Limitations: no limitations History of Present Illness HPI narrative: Patient with history of alcoholic cirrhosis with ascites and anasarca on furosemide 40 mg twice daily brought by ambulance for increased swelling and anemia patient gained lot of weight lately received 2 units of blood transfusion in last 3 weeks. Patient complaining of pain all over the body no fever on arrival no vomiting patient been here frequently for similar complaints in the past, patient last drink on September 09 patient denies any confusion but feels lethargic denies any black stool or hematemesis Related Data Home Medications Medication Instructions Recorded Confirmed hydroxyzine HCl 1 tab PO Q6H PRN 11/05/20 11/05/20 pantoprazole 1 tab PO BID 11/05/20 11/05/20 pantoprazole 1 tab PO BID 11/05/20 11/05/20 sucralfate 1 tab PO QID 11/05/20 11/05/20 Previous Rx's Medication Instructions Recorded furosemide 40 mg tablet 40 mg PO BID 30 Days #60 tab 10/12/20 ondansetron HCl 4 mg tablet 4 mg PO Q8H PRN #30 tab 10/12/20 potassium chloride 20 mEq 20 meq PO DAILY 14 Days #14 tab 10/12/20 tablet,extended release trazodone 50 mg tablet 50 mg PO BEDTIME PRN 30 Days #30 10/21/20 tab Allergies Allergy/AdvReac Type Severity Reaction Status Date / Time morphine [MORPHINE] Allergy Mild HIVES Verified 11/04/20 14:42 banana [BANANA] AdvReac Severe DIFFICULTY Verified 11/04/20 14:42 BREATHING morphine and related Allergy Intermediate Hives Uncoded 10/21/20 16:35 Review of Systems Review of Systems: Constitutional : No Weight loss, No Fever, No Chills ENT/Mouth : No sore throat, No Rhinorrhea Eyes: No Eye Pain, No Swelling Cardiovascular : No Chest Pain, no palpitations Respiratory : No Cough, No Sputum, no shortness of breath Gastrointestinal : no Nausea, No Vomiting, No Diarrhea, + abdominal Pain, no black stools Genitourinary : No Dysuria, No Urinary Frequency Musculoskeletal : No joint pain, No Myalgias, No Joint Swelling Skin : No Skin Lesions, No rash Neuro : ++ Weakness, No Numbness, No Dizziness, No Headache Psych : No Anxiety/Panic, No Depression Heme/Lymph: No Bruising, No Lymphadenopathy Endocrine : No Polyuria, No Polydipsia All other systems reviewed and are negative [facility] Past Medical History Medical History Acute GI bleeding Acute metabolic encephalopathy Alcohol withdrawal Asthma CHF (congestive heart failure) Chiari malformation CVA (cerebral vascular accident) Depression Depression with anxiety GI bleed Hemorrhoids Hepatitis C Hypokalemia NSVT (nonsustained ventricular tachycardia) Orthostatic hypotension Peptic ulcer disease Seizures Surgical History Gastric bypass status for obesity Hx of cholecystectomy Social History Social History Household Members: Family Housing: Apartment Alcohol intake: former Smoking Status: Light tobacco smoker Tobacco Type: Cigarette Packs Per Day: 1 Cigarettes Per Day: 20.0 Years Smoked: 12 Second Hand Smoke Exposure: Yes Use of substances other than those prescribed or required for medical reasons: No Advance Directives: No service: No Current occupational status: unemployed Physical Exam Vital Signs: Vital Signs: Last Vital Signs Temp 97.9 F 11/05/20 03:36 Pulse 72 11/05/20 03:36 Resp 16 11/05/20 03:36 BP 102/58 L 11/05/20 03:36 Pulse Ox 99 11/05/20 03:36 Body Mass Index 31.3 Appearance: Alert. Oriented X3. No acute distress. Eyes: Pupils equal, round and reactive to light. pallor ++, icterus + ENT: Pharynx normal. Neck: Normal inspection. Neck supple. CVS: Normal heart rate and rhythm. Pulses normal. Respiratory: No respiratory distress. Breath sounds normal. Abdomen: Soft and nontender. Bowel sounds are present, no mass palpable, no CVA tenderness, free fluid++ Skin: Skin warm and dry. Normal skin color. Normal skin turgor. Extremities: +++ lower extremity edema. Neuro: Oriented X 3. No motor deficit. No sensory deficit. Medical Decision Making MDM Narrative Medical decision making narrative: Patient has alcoholic cirrhosis with worsening of liver functions with chronic anemia in fluid overload will admit patient for IV diuresis and blood transfusion Lab Data Lab results reviewed: Yes I reviewed the patient's lab results. Result diagrams: 11/05/20 01:48 11/05/20 01:49 Labs: Lab Results 11/05/20 11/05/20 11/05/20 Range/Units 01:47 01:48 01:48 WBC 12.5 H (4.8-10.8) X10*3/uL RBC 2.06 L (4.20-5.50) X10*6/uL Hgb 7.8 L (12.0-16.0) g/dl Hct 23.5 L (37-47) % MCV 114.1 H (80-98) fL MCH 37.9 H (27.0-33.0) pg MCHC 33.2 (31.0-35.0) g/dl RDW 19.5 H (11.0-16.0) % Plt Count 149 L (160-400) X10*3/uL MPV 9.5 (9.4-12.3) fL Immature Gran % (Auto) 0.5 H (0.0-0.4) % Neut % (Auto) 77.4 H (45-73) % Lymph % (Auto) 14.2 L (20-40) % [place] % (Auto) 6.1 (2-11) % Eos % (Auto) 1.4 (0-4) % Baso % (Auto) 0.4 (0-2) % Lymph # (Auto) 1.8 (1.2-4.9) X10*3/uL [place] # (Auto) 0.8 (0.1-1.2) X10*3/uL Eos # (Auto) 0.2 (0.0-0.4) X10*3/uL Baso # (Auto) 0.1 (0.0-0.2) X10*3/uL Abs Immat Gran (auto) 0.06 H (0.00-0.03) X10*3/uL Absolute Neuts (auto) 9.7 H (2.0-8.3) X10*3/uL Absolute Nucleated RBC 0.000 (0.0-0.012) X10*3/uL Nucleated RBC % (auto) 0.0 (0.0-0.2) /100WBC Smear Tech's Comments VERIFIED PT (10.8-13.0) SEC INR (0.9-1.1) APTT (24.1-38.0) SEC Sodium (135-145) mmol/L Potassium (3.3-5.1) mmol/l Chloride (96-108) mmol/L Carbon Dioxide (22-29) mmol/L Anion Gap (12-20) BUN (9-16) mg/dL Creatinine (0.5-1.4) mg/dL Estim Creat Clear Calc Estimated GFR Random Glucose (60-115) mg/dL Lactic Acid 1.4 (0.5-2.0) mmol/L Calcium (8.4-10.2) mg/dL Magnesium (1.6-2.6) mg/dL Total Bilirubin (0.0-1.0) mg/dL Direct Bilirubin (0.0-0.5) mg/dL AST (5-31) U/L ALT (0-31) U/L Alkaline Phosphatase (39-117) U/L Ammonia 113 H (13-55) umol/L B-Natriuretic Peptide (<100) pg/mL Total Protein (6.5-8.0) g/dL Albumin (3.5-5.0) g/dL Lipase (8-78) U/L Urine Color Urine Appearance Urine pH (5.0-8.0) Ur Specific [place] (1.005-1.025) Urine Protein (NEG-TRACE) MG/DL Urine Glucose (UA) (NEG) MG/DL Urine Ketones (NEG) MG/DL Urine Blood (NEG) Urine Nitrite (NEG) Ur Leukocyte Esterase (NEG) Ethyl Alcohol mg/dL COVID-19 ([facility]) (Negative) COVID-19 Clin Com Blood Type Antibody Screen Crossmatch 11/05/20 11/05/20 11/05/20 Range/Units 01:49 01:49 01:49 WBC (4.8-10.8) X10*3/uL RBC (4.20-5.50) X10*6/uL Hgb (12.0-16.0) g/dl Hct (37-47) % MCV (80-98) fL MCH (27.0-33.0) pg MCHC (31.0-35.0) g/dl RDW (11.0-16.0) % Plt Count (160-400) X10*3/uL MPV (9.4-12.3) fL Immature Gran % (Auto) (0.0-0.4) % Neut % (Auto) (45-73) % Lymph % (Auto) (20-40) % [place] % (Auto) (2-11) % Eos % (Auto) (0-4) % Baso % (Auto) (0-2) % Lymph # (Auto) (1.2-4.9) X10*3/uL [place] # (Auto) (0.1-1.2) X10*3/uL Eos # (Auto) (0.0-0.4) X10*3/uL Baso # (Auto) (0.0-0.2) X10*3/uL Abs Immat Gran (auto) (0.00-0.03) X10*3/uL Absolute Neuts (auto) (2.0-8.3) X10*3/uL Absolute Nucleated RBC (0.0-0.012) X10*3/uL Nucleated RBC % (auto) (0.0-0.2) /100WBC Smear Tech's Comments PT 20.6 H D (10.8-13.0) SEC INR 1.7 H (0.9-1.1) APTT 44.9 H (24.1-38.0) SEC Sodium 138 (135-145) mmol/L Potassium 3.8 D (3.3-5.1) mmol/l Chloride 111 H (96-108) mmol/L Carbon Dioxide 19 L (22-29) mmol/L Anion Gap 12 (12-20) BUN 9 (9-16) mg/dL Creatinine 0.76 (0.5-1.4) mg/dL Estim Creat Clear Calc 112.6 Estimated GFR > 60 Random Glucose 105 (60-115) mg/dL Lactic Acid (0.5-2.0) mmol/L Calcium 7.9 L D (8.4-10.2) mg/dL Magnesium 1.9 (1.6-2.6) mg/dL Total Bilirubin 5.9 H (0.0-1.0) mg/dL Direct Bilirubin 4.2 H (0.0-0.5) mg/dL AST 48 H D (5-31) U/L ALT 12 (0-31) U/L Alkaline Phosphatase 131 H (39-117) U/L Ammonia (13-55) umol/L B-Natriuretic Peptide (<100) pg/mL Total Protein 6.0 L (6.5-8.0) g/dL Albumin 2.4 L D (3.5-5.0) g/dL Lipase 31 (8-78) U/L Urine Color Urine Appearance Urine pH (5.0-8.0) Ur Specific [place] (1.005-1.025) Urine Protein (NEG-TRACE) MG/DL Urine Glucose (UA) (NEG) MG/DL Urine Ketones (NEG) MG/DL Urine Blood (NEG) Urine Nitrite (NEG) Ur Leukocyte Esterase (NEG) Ethyl Alcohol < 10 mg/dL COVID-19 ([facility]) (Negative) COVID-19 Clin Com Blood Type Antibody Screen Crossmatch 11/05/20 11/05/20 11/05/20 Range/Units 01:49 01:49 01:49 WBC (4.8-10.8) X10*3/uL RBC (4.20-5.50) X10*6/uL Hgb (12.0-16.0) g/dl Hct (37-47) % MCV (80-98) fL MCH (27.0-33.0) pg MCHC (31.0-35.0) g/dl RDW (11.0-16.0) % Plt Count (160-400) X10*3/uL MPV (9.4-12.3) fL Immature Gran % (Auto) (0.0-0.4) % Neut % (Auto) (45-73) % Lymph % (Auto) (20-40) % [place] % (Auto) (2-11) % Eos % (Auto) (0-4) % Baso % (Auto) (0-2) % Lymph # (Auto) (1.2-4.9) X10*3/uL [place] # (Auto) (0.1-1.2) X10*3/uL Eos # (Auto) (0.0-0.4) X10*3/uL Baso # (Auto) (0.0-0.2) X10*3/uL Abs Immat Gran (auto) (0.00-0.03) X10*3/uL Absolute Neuts (auto) (2.0-8.3) X10*3/uL Absolute Nucleated RBC (0.0-0.012) X10*3/uL Nucleated RBC % (auto) (0.0-0.2) /100WBC Smear Tech's Comments PT (10.8-13.0) SEC INR (0.9-1.1) APTT (24.1-38.0) SEC Sodium (135-145) mmol/L Potassium (3.3-5.1) mmol/l Chloride (96-108) mmol/L Carbon Dioxide (22-29) mmol/L Anion Gap (12-20) BUN (9-16) mg/dL Creatinine (0.5-1.4) mg/dL Estim Creat Clear Calc Estimated GFR Random Glucose (60-115) mg/dL Lactic Acid (0.5-2.0) mmol/L Calcium (8.4-10.2) mg/dL Magnesium (1.6-2.6) mg/dL Total Bilirubin (0.0-1.0) mg/dL Direct Bilirubin (0.0-0.5) mg/dL AST (5-31) U/L ALT (0-31) U/L Alkaline Phosphatase (39-117) U/L Ammonia (13-55) umol/L B-Natriuretic Peptide 344 H (<100) pg/mL Total Protein (6.5-8.0) g/dL Albumin (3.5-5.0) g/dL Lipase (8-78) U/L Urine Color DARK YELLOW Urine Appearance CLEAR Urine pH 6.0 (5.0-8.0) Ur Specific [place] 1.025 (1.005-1.025) Urine Protein TRACE (NEG-TRACE) MG/DL Urine Glucose (UA) NEG (NEG) MG/DL Urine Ketones NEG (NEG) MG/DL Urine Blood NEG (NEG) Urine Nitrite NEG (NEG) Ur Leukocyte Esterase NEG (NEG) Ethyl Alcohol mg/dL COVID-19 ([facility]) (Negative) COVID-19 Clin Com Blood Type O Negative Antibody Screen NEGATIVE Crossmatch See Detail 11/05/20 Range/Units 03:37 WBC (4.8-10.8) X10*3/uL RBC (4.20-5.50) X10*6/uL Hgb (12.0-16.0) g/dl Hct (37-47) % MCV (80-98) fL MCH (27.0-33.0) pg MCHC (31.0-35.0) g/dl RDW (11.0-16.0) % Plt Count (160-400) X10*3/uL MPV (9.4-12.3) fL Immature Gran % (Auto) (0.0-0.4) % Neut % (Auto) (45-73) % Lymph % (Auto) (20-40) % [place] % (Auto) (2-11) % Eos % (Auto) (0-4) % Baso % (Auto) (0-2) % Lymph # (Auto) (1.2-4.9) X10*3/uL [place] # (Auto) (0.1-1.2) X10*3/uL Eos # (Auto) (0.0-0.4) X10*3/uL Baso # (Auto) (0.0-0.2) X10*3/uL Abs Immat Gran (auto) (0.00-0.03) X10*3/uL Absolute Neuts (auto) (2.0-8.3) X10*3/uL Absolute Nucleated RBC (0.0-0.012) X10*3/uL Nucleated RBC % (auto) (0.0-0.2) /100WBC Smear Tech's Comments PT (10.8-13.0) SEC INR (0.9-1.1) APTT (24.1-38.0) SEC Sodium (135-145) mmol/L Potassium (3.3-5.1) mmol/l Chloride (96-108) mmol/L Carbon Dioxide (22-29) mmol/L Anion Gap (12-20) BUN (9-16) mg/dL Creatinine (0.5-1.4) mg/dL Estim Creat Clear Calc Estimated GFR Random Glucose (60-115) mg/dL Lactic Acid (0.5-2.0) mmol/L Calcium (8.4-10.2) mg/dL Magnesium (1.6-2.6) mg/dL Total Bilirubin (0.0-1.0) mg/dL Direct Bilirubin (0.0-0.5) mg/dL AST (5-31) U/L ALT (0-31) U/L Alkaline Phosphatase (39-117) U/L Ammonia (13-55) umol/L B-Natriuretic Peptide (<100) pg/mL Total Protein (6.5-8.0) g/dL Albumin (3.5-5.0) g/dL Lipase (8-78) U/L Urine Color Urine Appearance Urine pH (5.0-8.0) Ur Specific [place] (1.005-1.025) Urine Protein (NEG-TRACE) MG/DL Urine Glucose (UA) (NEG) MG/DL Urine Ketones (NEG) MG/DL Urine Blood (NEG) Urine Nitrite (NEG) Ur Leukocyte Esterase (NEG) Ethyl Alcohol mg/dL COVID-19 ([facility]) Negative (Negative) COVID-19 Clin Com See Note Blood Type Antibody Screen Crossmatch Discharge Plan Discharge Clinical Impression: Alcoholic cirrhosis of liver Qualifiers: Ascites presence: with ascites Qualified Code(s): K70.31 - Alcoholic cirrhosis of liver with ascites Ascites Qualifiers: Ascites type: due to alcoholic cirrhosis Qualified Code(s): K70.31 - Alcoholic cirrhosis of liver with ascites Anemia Qualifiers: Anemia type: unspecified type Qualified Code(s): D64.9 - Anemia, unspecified Patient Disposition: Admitted As Inpatient
--- NOTE | 2020-11-05 01:19 | XR_ITS ---
EXAMINATION: XR CHEST CLINICAL INFORMATION: Fluid overload COMPARISON: 10/02/2020 TECHNIQUE: Frontal view of the chest was obtained. FINDINGS: Cardiac leads overlie the chest. Lung volumes are low. Linear left basilar atelectasis. No edema or effusion. No pneumothorax. The cardiomediastinal silhouette is within normal limits. No osseous abnormality. XR/XR chest 1V IMPRESSION: Low lung volumes with left basilar atelectasis. No edema.
[2020-11-05] MEDS: HYDROmorphone HCl 0.5 MG/0.5 ML SYRINGE IVPUSH ×7 (01:54→23:59)
[2020-11-05 01:56] LABS: Basophils Absolute Auto 0.1 X10*3/uL (0.0-0.2); Basophils Percent Auto 0.4 % (0-2); Eosinophils Absolute Auto 0.2 X10*3/uL (0.0-0.4); Eosinophils Percent Auto 1.4 % (0-4); Hematocrit 23.5 % (37-47); Hemoglobin 7.8 g/dl (12.0-16.0); Imm Gran Abs Auto 0.06 X10*3/uL (0.00-0.03); Imm Gran Pct Auto 0.5 % (0.0-0.4); Lymphocytes Absolute Auto 1.8 X10*3/uL (1.2-4.9); Lymphocytes Percent Auto 14.2 % (20-40); Mean Corpuscular HGB Conc 33.2 g/dl (31.0-35.0); Mean Corpuscular Hemoglobin 37.9 pg (27.0-33.0); Mean Corpuscular Volume 114.1 fL (80-98); Mean Platelet Volume 9.5 fL (9.4-12.3); Monocytes Absolute Auto 0.8 X10*3/uL (0.1-1.2); Monocytes Percent Auto 6.1 % (2-11); Neutrophils Absolute Auto 9.7 X10*3/uL (2.0-8.3); Neutrophils Percent Auto 77.4 % (45-73); Platelet Count 149 X10*3/uL (160-400); Red Blood Count 2.06 X10*6/uL (4.20-5.50); Red Cell Distribution Width 19.5 % (11.0-16.0); White Blood Count 12.5 X10*3/uL (4.8-10.8)
[2020-11-05 01:57] LABS: Glucose Urine UA NEG (NEG); Leukocyte Esterase Urine NEG (NEG); Specific Gravity - Urine 1.025 (1.005-1.025); UACC Culture Trigger YES; Urine Blood NEG (NEG); Urine Ketones NEG (NEG); Urine Protein TRACE MG/DL (NEG-TRACE)
[2020-11-05 02:00] LABS: Appearance Urine CLEAR; Color Urine DARK YELLOW; Nitrite Urine NEG (NEG)
[2020-11-05 02:01] LABS: INTERNATIONAL NORM RATIO 1.7 (0.9-1.1); Prothrombin Time 20.6 SEC (10.8-13.0)
[2020-11-05 02:04] LABS: Partial Thromboplastin Time 44.9 SEC (24.1-38.0)
[2020-11-05 02:09] LABS: MANUAL DIFF FLAG SCAN
[2020-11-05 02:11] LABS: Ammonia 113 umol/L (13-55)
[2020-11-05 02:15] LABS: Lactic Acid 1.4 mmol/L (0.5-2.0)
[2020-11-05 02:16] LABS: SLIDE REVIEW VERIFIED
[2020-11-05 02:24] LABS: B Type Natriuretic Peptide 344 pg/mL (<100)
[2020-11-05 02:30] LABS: Ethanol < 10 mg/dL
[2020-11-05 02:35] LABS: Alanine Aminotransferase 12 U/L (0-31); Albumin Level 2.4 g/dL (3.5-5.0); Alkaline Phosphatase 131 U/L (39-117); Anion Gap 12 (12-20); Aspartate Amino Transferase 48 U/L (5-31); Bilirubin Direct 4.2 mg/dL (0.0-0.5); Bilirubin Total 5.9 mg/dL (0.0-1.0); Blood Urea Nitrogen 9 mg/dL (9-16); Calcium 7.9 mg/dL (8.4-10.2); Carbon Dioxide 19 mmol/L (22-29); Chloride 111 mmol/L (96-108); Creatinine Clr Calc Pharmacy 112.6; Estimated Glomerular Filt Rate > 60; Glucose Random 105 mg/dL (60-115); Lipase 31 U/L (8-78); Magnesium 1.9 mg/dL (1.6-2.6); Potassium 3.8 mmol/l (3.3-5.1); Sodium 138 mmol/L (135-145)
[2020-11-05] MEDS: Furosemide 20 MG/2 ML VIAL IVPUSH (03:20)
--- NOTE | 2020-11-05 03:30 | PC.NURSE ---
blood consent signed by md aly at [id number]
[2020-11-05] MEDS: Pantoprazole Sodium 40 MG/10 ML VIAL IVPUSH (03:40)
[2020-11-05] MEDS: Albumin Human 25 % 100 ML IV ×2 (03:42→06:25)
[2020-11-05 03:56] LABS: COVID-19 Test Negative (Negative)
[2020-11-05] MEDS: Lactulose 20 GM/30 ML SOLUTION 30 GM PO (04:28)
--- NOTE | 2020-11-05 05:41 | PC.NURSE ---
hospitalist at bedside.
--- NOTE | 2020-11-05 06:15 | PM.IMHP ---
History of Present Illness Date of Service: 11/05/20 Chief Complaint: Leg swelling, abd pain, body pain 30 year old woman with cirrhosis presented from PCPs office for evaluation. Patient reported significant weight gain of approx 60 pounds per her report in the last few weeks. She notes increased abd girth and worsening leg edema. Also feeling fatigued and noted some daily fevers/chills over last 3 days. She was hospitalized here approx 3 weeks ago with similar picture. Labs showed ongoing anemia in ED so arranged for transfusion. Review of Systems Constitutional: Constitutional: Reports body ache(s), Reports chills, Reports fatigue, Reports fever(s) and Reports weight loss Eyes: Comments: No changes in vision ENT: Comments: No dysphagia. Cardiovascular: Comments: No chest pain Respiratory: Comments: No dyspnea or cough Gastrointestinal: Comments: Increased abd girth, abd pain noted. No nausea, vomiting. Musculoskeletal: Comments: Pain in back, arms, legs Neurologic: Comments: No weakness or numbness in extremities. Occasional headache reported Psychiatric: Comments: Seems a bit anxious Endocrine: Endocrine: Reports fatigue Hematologic/Lymphatic: Comments: No bruising PMFSH Medical History Acute GI bleeding Acute metabolic encephalopathy Alcohol withdrawal Asthma CHF (congestive heart failure) Chiari malformation CVA (cerebral vascular accident) Depression Depression with anxiety GI bleed Hemorrhoids Hepatitis C Hypokalemia NSVT (nonsustained ventricular tachycardia) Orthostatic hypotension Peptic ulcer disease Seizures Functional capacity: uses cane/walker Surgical History Gastric bypass status for obesity Hx of cholecystectomy Social History Household Members: Family Housing: Apartment Alcohol intake: former Smoking Status: Light tobacco smoker Tobacco Type: Cigarette Packs Per Day: 1 Cigarettes Per Day: 20.0 Years Smoked: 12 Second Hand Smoke Exposure: Yes Use of substances other than those prescribed or required for medical reasons: No Advance Directives: No service: No Current occupational status: unemployed Meds Allergies Allergy/AdvReac Type Severity Reaction Status Date / Time morphine [MORPHINE] Allergy Mild HIVES Verified 11/04/20 14:42 banana [BANANA] AdvReac Severe DIFFICULTY Verified 12/31/20 14:42 BREATHING morphine and related Allergy Intermediate Hives Uncoded 10/21/20 16:35 Home Medications Medication Instructions Recorded Confirmed Type hydroxyzine HCl 1 tab PO Q6H PRN 11/05/20 11/05/20 History pantoprazole 1 tab PO BID 11/05/20 11/05/20 History pantoprazole 1 tab PO BID 11/05/20 11/05/20 History sucralfate 1 tab PO QID 11/05/20 11/05/20 History Physical Exam Vital Signs and Narrative: Vital Signs: Last Vital Signs Temp 97.8 F 11/05/20 05:20 Pulse 78 11/05/20 05:20 Resp 18 11/05/20 05:20 BP 100/56 L 11/05/20 05:20 Pulse Ox 99 11/05/20 03:36 Body Mass Index 31.3 Const: General: cooperative, no acute distress and anxious HENMT: Head: Yes normal to inspection Mouth: Normal oral and palatal mucosa present and moist mucous membranes Eyes: General: appearance normal, both eyes and all related structures Resp: Other: Diminished breath sounds at lung bases, no insp crackles or exp wheezing Effort & Inspection: normal respiratory effort and able to speak in complete sentences Cardio: Other: Slight systolic murmur LLSB Rate: regular rate Heart sounds: S1 normal heart sound present and S2 normal heart sound present GI: Other: Bowel sounds present, abdomen firm and distended with obvious ascites. Diffusely tender to palpation. Skin: General skin exam: no rashes or lesions noted Neuro: Other: Alert and oriented. Extrem: Other: pitting edema noted in legs to mid thigh. Results Labs CBC and Chem 7: 11/05/20 01:48 11/05/20 01:49 Labs: Laboratory Results - last 24 hr 11/05/20 11/05/20 11/05/20 01:47 01:48 01:48 MCV 114.1 H MCH 37.9 H MCHC 33.2 RDW 19.5 H Plt Count 149 L MPV 9.5 Immature Gran % (Auto) 0.5 H Neut % (Auto) 77.4 H Lymph % (Auto) 14.2 L [place] % (Auto) 6.1 Eos % (Auto) 1.4 Baso % (Auto) 0.4 Lymph # (Auto) 1.8 [place] # (Auto) 0.8 Eos # (Auto) 0.2 Baso # (Auto) 0.1 Abs Immat Gran (auto) 0.06 H Absolute Neuts (auto) 9.7 H Absolute Nucleated RBC 0.000 Nucleated RBC % (auto) 0.0 Smear Tech's Comments VERIFIED PT INR APTT Anion Gap Estim Creat Clear Calc Estimated GFR Random Glucose Lactic Acid 1.4 Calcium Magnesium Total Bilirubin Direct Bilirubin AST ALT Alkaline Phosphatase Ammonia 113 H B-Natriuretic Peptide Total Protein Albumin Lipase Urine Color Urine Appearance Urine pH Ur Specific [place] Urine Protein Urine Glucose (UA) Urine Ketones Urine Blood Urine Nitrite Ur Leukocyte Esterase Ethyl Alcohol COVID-19 ([facility]) COVID-19 Clin Com Blood Type Antibody Screen Crossmatch 11/05/20 11/05/20 11/05/20 01:49 01:49 01:49 MCV MCH MCHC RDW Plt Count MPV Immature Gran % (Auto) Neut % (Auto) Lymph % (Auto) [place] % (Auto) Eos % (Auto) Baso % (Auto) Lymph # (Auto) [place] # (Auto) Eos # (Auto) Baso # (Auto) Abs Immat Gran (auto) Absolute Neuts (auto) Absolute Nucleated RBC Nucleated RBC % (auto) Smear Tech's Comments PT 20.6 H D INR 1.7 H APTT 44.9 H Anion Gap 12 Estim Creat Clear Calc 112.6 Estimated GFR > 60 Random Glucose 105 Lactic Acid Calcium 7.9 L D Magnesium 1.9 Total Bilirubin 5.9 H Direct Bilirubin 4.2 H AST 48 H D ALT 12 Alkaline Phosphatase 131 H Ammonia B-Natriuretic Peptide Total Protein 6.0 L Albumin 2.4 L D Lipase 31 Urine Color Urine Appearance Urine pH Ur Specific [place] Urine Protein Urine Glucose (UA) Urine Ketones Urine Blood Urine Nitrite Ur Leukocyte Esterase Ethyl Alcohol < 10 COVID-19 ([facility]) COVID-19 Clin Com Blood Type Antibody Screen Crossmatch 11/05/20 11/05/20 11/05/20 01:49 01:49 01:49 MCV MCH MCHC RDW Plt Count MPV Immature Gran % (Auto) Neut % (Auto) Lymph % (Auto) [place] % (Auto) Eos % (Auto) Baso % (Auto) Lymph # (Auto) [place] # (Auto) Eos # (Auto) Baso # (Auto) Abs Immat Gran (auto) Absolute Neuts (auto) Absolute Nucleated RBC Nucleated RBC % (auto) Smear Tech's Comments PT INR APTT Anion Gap Estim Creat Clear Calc Estimated GFR Random Glucose Lactic Acid Calcium Magnesium Total Bilirubin Direct Bilirubin AST ALT Alkaline Phosphatase Ammonia B-Natriuretic Peptide 344 H Total Protein Albumin Lipase Urine Color DARK YELLOW Urine Appearance CLEAR Urine pH 6.0 Ur Specific [place] 1.025 Urine Protein TRACE Urine Glucose (UA) NEG Urine Ketones NEG Urine Blood NEG Urine Nitrite NEG Ur Leukocyte Esterase NEG Ethyl Alcohol COVID-19 ([facility]) COVID-19 Clin Com Blood Type O Negative Antibody Screen NEGATIVE Crossmatch See Detail 11/05/20 03:37 MCV MCH MCHC RDW Plt Count MPV Immature Gran % (Auto) Neut % (Auto) Lymph % (Auto) [place] % (Auto) Eos % (Auto) Baso % (Auto) Lymph # (Auto) [place] # (Auto) Eos # (Auto) Baso # (Auto) Abs Immat Gran (auto) Absolute Neuts (auto) Absolute Nucleated RBC Nucleated RBC % (auto) Smear Tech's Comments PT INR APTT Anion Gap Estim Creat Clear Calc Estimated GFR Random Glucose Lactic Acid Calcium Magnesium Total Bilirubin Direct Bilirubin AST ALT Alkaline Phosphatase Ammonia B-Natriuretic Peptide Total Protein Albumin Lipase Urine Color Urine Appearance Urine pH Ur Specific [place] Urine Protein Urine Glucose (UA) Urine Ketones Urine Blood Urine Nitrite Ur Leukocyte Esterase Ethyl Alcohol COVID-19 ([facility]) Negative COVID-19 Clin Com See Note Blood Type Antibody Screen Crossmatch Imaging Radiologist's Impressions: Impressions Chest X-Ray 11/05/20 01:19 IMPRESSION: Low lung volumes with left basilar atelectasis. No edema. Assessment and Plan (1) Anemia: Qualifiers: Anemia type: unspecified type Qualified Code(s): D64.9 - Anemia, unspecified Status: Acute (2) Abdominal pain, chronic, generalized: Status: Acute (3) Ascites: Qualifiers: Ascites type: due to alcoholic cirrhosis Qualified Code(s): K70.31 - Alcoholic cirrhosis of liver with ascites Status: Acute 30 year old woman with end stage cirrhosis presented with symptomatic anemia and volume overload/fluid retention. Amd pain also noted concerning for tense ascites vs SBP. Symptomatic anemia Likely AOCD. No report of blood losses. Transfusing 1 unit of PRBCs in ED. Trend H/H. Abd pain/ascites Stated she had daily fevers. Given abd pain this is concerning for SBP. Will order ultrasound guided paracentesis for therapeutic tap and for eval for SBP. Hold on anditbiotics for now until she can be tapped as she is stable. Dilaudid IV prn pain. Cirrhosis/volume overload Received albumin in ED and also IV Lasix. Resume home PO Lasix dosing thereafter as BP tolerates. She has tense leg edema. Low sodium diet and dialy weights ordered. Myalgias Tested negative for COVID. DVT proph Her INR is elevated at 1.7 due to her liver disease so will avoid any SC Heparin or Lovenox due to bleeding risk. Code status Full code
--- NOTE | 2020-11-05 06:59 | PC.NURSE ---
received report from dmitriy rodriguez
--- NOTE | 2020-11-05 07:15 | PC.NURSE ---
pt alert and oriented, skin appropriate for ethnicity, sclera jaundice, respirations even and unlabored. abd distended and firm, bowel sounds active in all 4 quadrants, villatoro in place draining about 600ml of yellow urine. pt reports pain all over her body but mostly in her abd/head/and legs. pt medicated with diulated per md orders, ns on the monitor and vs stable. Albumin infusing at this time. pt awaiting room assignment.
--- NOTE | 2020-11-05 08:46 | PC.NURSE ---
called med/surg to give report awaiting a call back
--- NOTE | 2020-11-05 09:22 | PC.NURSE ---
report given to med/surgical elastic knitter hand frame
--- NOTE | 2020-11-05 09:40 | US_ITS ---
EXAMINATION: ULTRASOUND-GUIDED PARACENTESIS CLINICAL INFORMATION: Worsening ascites and significant diffuse abdominal pain. COMPARISON: Ultrasound abdomen 10/11/2020. TECHNIQUE: Following explaining ultrasound-guided paracentesis procedure, benefits and risk, a written consent was obtained. Patient was placed supine on ultrasound stretcher and preliminary ultrasound imaging was obtained. An optimal site was selected along the left lower quadrant anteriorly and marked. The marked site was cleaned and draped with 2% Chlorhexidine solution. 1% lidocaine was injected at puncture site. Through a small incision a 4 [employer] catheter was advanced into the peritoneal space. After obtaining fluid return, the stylet was withdrawn and catheter connected to vacuum bottle via connecting cannula. After obtaining all fluid and observing no more fluid return, catheter was withdrawn and complete hemostasis achieved at puncture site. Sterile dressing applied postprocedure. Patient tolerated procedure very well. FINDINGS: On preliminary ultrasound imaging there is a large amount of free fluid in the left lower quadrant and right upper quadrant. Successful ultrasound-guided paracentesis performed through the left lower quadrant. Approximately 5.2 L of yellow fluid was drained. Part of this fluid was sent to lab as per referring physician's orders. US/US paracentesis abd w/image IMPRESSION: Successful ultrasound-guided therapeutic and diagnostic paracentesis performed with approximately 5.2 L of yellow fluid drained. Part of this fluid was sent to pathology for further imaging.
[2020-11-05] MEDS: Sucralfate 1 GM TABLET PO ×3 (11:28→19:59)
[2020-11-05] MEDS: Potassium Chloride ER 20 MEQ TAB.ER.PRT PO (11:28)
[2020-11-05] MEDS: Omeprazole 20 MG CAPSULE.DR PO ×2 (11:28→15:26)
[2020-11-05] MEDS: 0.9 % Sodium Chloride Flush 3 ML SYRINGE IVFLUSH ×3 (11:28→20:01)
[2020-11-05] MEDS: hydrOXYzine HCL 25 MG TABLET PO (13:01)
[2020-11-05 14:19] LABS: RBC Peritoneal Fluid < 0.002 X10*6/uL; WBC Peritoneal Fluid 0.117 X10*3/uL
[2020-11-05 14:46] LABS: BF Shift QC OK YES; Lymphocyte Peritoneal Fl 19 %; Monocytes Peritoneal Fl 15 %; Neutrophils Peritoneal Fluid 48 %; Other Peritioneal Fl 18 %
[2020-11-05] MEDS: Furosemide 40 MG TABLET PO (19:59)
[2020-11-05] MEDS: traZODone HCL 50 MG TABLET PO (22:09)
[2020-11-06 00:38] VITALS: BP 94/48; PULSE 90; RESP 18; TEMP 36.8; O2SAT 100
--- NOTE | 2020-11-06 02:28 | PC.NURSE ---
Pt Davis catheter was dislodge on 11/05/20 @ 22:00. Pt refused replacement till the morning. Md was notified. No action were recommended by .
[2020-11-06] MEDS: HYDROmorphone HCl 0.5 MG/0.5 ML SYRINGE IVPUSH ×2 (04:14→08:14)
[2020-11-06 04:21] VITALS: BP 90/45; PULSE 88; RESP 18; TEMP 36.7; O2SAT 99
[2020-11-06 05:08] VITALS: RESP 18
[2020-11-06 06:00] VITALS: BMI 30.7
[2020-11-06] MEDS: Omeprazole 20 MG CAPSULE.DR PO (06:17)
[2020-11-06 07:24] VITALS: BP 95/50; PULSE 92; RESP 16; TEMP 36.6; O2SAT 99
[2020-11-06 07:24] LABS: MANUAL DIFF FLAG NO
[2020-11-06 07:45] LABS: Basophils Percent Auto 0.5 % (0-2); Eosinophils Absolute Auto 0.1 X10*3/uL (0.0-0.4); Eosinophils Percent Auto 1.5 % (0-4); Hematocrit 22.2 % (37-47); Hemoglobin 7.5 g/dl (12.0-16.0); Imm Gran Abs Auto 0.03 X10*3/uL (0.00-0.03); Imm Gran Pct Auto 0.4 % (0.0-0.4); Lymphocytes Absolute Auto 2.2 X10*3/uL (1.2-4.9); Lymphocytes Percent Auto 26.9 % (20-40); Mean Corpuscular HGB Conc 33.8 g/dl (31.0-35.0); Mean Corpuscular Hemoglobin 36.8 pg (27.0-33.0); Mean Corpuscular Volume 108.8 fL (80-98); Mean Platelet Volume 9.5 fL (9.4-12.3); Monocytes Absolute Auto 0.5 X10*3/uL (0.1-1.2); Monocytes Percent Auto 6.1 % (2-11); Neutrophils Absolute Auto 5.2 X10*3/uL (2.0-8.3); Neutrophils Percent Auto 64.6 % (45-73); Platelet Count 115 X10*3/uL (160-400); Red Blood Count 2.04 X10*6/uL (4.20-5.50); White Blood Count 8.1 X10*3/uL (4.8-10.8)
[2020-11-06 07:47] LABS: Blood Urea Nitrogen 8 mg/dL (9-16); Calcium 7.5 mg/dL (8.4-10.2); Creatinine Clr Calc Pharmacy 107.3; Estimated Glomerular Filt Rate > 60; Glucose Random 113 mg/dL (60-115)
[2020-11-06 07:59] LABS: Anion Gap 10 (12-20); Carbon Dioxide 21 mmol/L (22-29); Chloride 110 mmol/L (96-108); Potassium 3.6 mmol/l (3.3-5.1); Sodium 137 mmol/L (135-145)
[2020-11-06] MEDS: Potassium Chloride ER 20 MEQ TAB.ER.PRT PO (08:13)
[2020-11-06] MEDS: Furosemide 40 MG TABLET PO (08:13)
[2020-11-06] MEDS: Sucralfate 1 GM TABLET PO (08:13)
[2020-11-06] MEDS: 0.9 % Sodium Chloride Flush 3 ML SYRINGE IVFLUSH (08:14)
[2020-11-06 11:13] VITALS: BP 95/45; PULSE 91; RESP 16; TEMP 36.7; O2SAT 97
--- NOTE | 2020-11-06 11:32 | MHC.CM.PN ---
NURSE CARE MANAGEMENT NOTE ELECTRONIC MEDICAL RECORD REVIEWED ALONG WITH CASE DISCUSSED WITH STAFF NURSE AND HOSPITALIST MET WITH PATIENT SHE REPORTED THAT SHE LIVES IN APARTEMENT WITH HER FAMILY AND SHE RECEIVES TOOTH C[employer] SUPPORT THROUGH [employer], TO ASSIST WITH ADLS AND FOR MOBILITY SHE HAS A CANE AND WHEELED WAKER THAT SHE HAS BORROWED AND HAS A SHOWER CHAIR. WHEN OFFERED [facility] SHE DECLINED ) SHE CONFIRMED THAT SHE HAS A PCP IN THE [facility] DR SAMUEL INSTRUCTED FOR HER TO CALL FOR POST HOSPITAL DISCHAGRE FOLLOW UP TRANSPORTATION FAMILY PATIENT
--- NOTE | 2020-11-06 11:39 | PM.DS ---
DS: Providers Provider Date of admission: 11/05/20 06:12 Primary care physician: Unknown Physician DS: Diagnosis Discharge Diagnosis (1) Anemia: Status: Acute (2) Abdominal pain, chronic, generalized: Status: Acute (3) Ascites: Status: Acute DS: Medications Discharge Medications Home Medications: Home Medications Medication Instructions Recorded Confirmed hydroxyzine HCl 1 tab PO Q6H PRN 11/05/20 11/05/20 pantoprazole 1 tab PO BID 11/05/20 11/05/20 sucralfate 1 tab PO QID 11/05/20 11/05/20 Previous Rx's Medication Instructions Recorded furosemide 40 mg tablet 40 mg PO BID 30 Days #60 tab 10/12/20 ondansetron HCl 4 mg tablet 4 mg PO Q8H PRN #30 tab 10/12/20 potassium chloride 20 mEq 20 meq PO DAILY 14 Days #14 tab 10/12/20 tablet,extended release trazodone 50 mg tablet 50 mg PO BEDTIME PRN 30 Days #30 10/21/20 tab oxycodone 5 mg PO Q6H PRN #12 tab 11/06/20 DS: Summary Hospital Course Hospital Course: Chief Complaint: Leg swelling, abd pain, body pain 30 year old woman with cirrhosis presented from PCPs office for evaluation. Patient reported significant weight gain of approx 60 pounds per her report in the last few weeks. She notes increased abd girth and worsening leg edema. Also feeling fatigued and noted some daily fevers/chills over last 3 days. She was hospitalized here approx 3 weeks ago with similar picture. Labs showed ongoing anemia in ED so arranged for transfusion. Hospital course 30 year old woman with end stage cirrhosis presented with symptomatic anemia and volume overload/fluid retention, abdominal pain with distended abdomen. Symptomatic anemia Likely anemia of chronic disease, patient reported no hematemesis or melena receive 1 unit of packed RBC hematocrit remains low but close to new baseline, patient recent iron studies from May 24 showed iron deficiency will place her on iron supplement. Abd pain/ascites Likely due to abdominal distension patient underwent paracentesis 4.8 L of fluid was sent fluid is not consistent with SBP, patient has been recommended to have close outpatient follow-up with PCP and Gastroenterology to scheduled regular paracentesis Q 2 weekly, giving oxycodone 12 tablets for pain control and recommended follow-up with PCP, strongly advised to abstain from Tylenol and Motrin and alcohol. Cirrhosis/volume overload Received albumin in ED and also IV Lasix, had tobin to resume by mouth Lasix 40 mg b.i.d. with potassium supplement. Myalgias Tested negative for COVID. Time Spent with Patient Time attestation: Total time spent providing and/or coordinating discharge services: Physical Exam Vital Signs: Vital Signs: Last Vital Signs Temp 98.1 F 11/06/20 11:13 Pulse 91 11/06/20 11:13 Resp 16 11/06/20 11:13 BP 95/45 L 11/06/20 11:13 Pulse Ox 97 11/06/20 11:13 Body Mass Index 30.7 General no acute distress, appears chronically sick. Neck is supple no JVD. CVS regular rate rhythm, Respiratory lungs clear to auscultation, no respiratory distress, diminished breath sound at bases Gastrointestinal abdomen distended, mild diffuse tenderness to palpation likely due to persistent distension and ascites, no guarding , no rigidity. Extremities bilateral lower extremity edema. Neuro nonfocal Skin jaundiced DS: Data Data Completed and Pending Completed studies during hospitalization [Text1]: Procedures Control Bleeding in Gastrointestinal Tract, Via Natural or Artificial Opening Endoscopic (10/03/20) Detoxification Services for Substance Abuse Treatment (10/03/20) Drainage of Peritoneal Cavity, Percutaneous Approach (10/10/20) Excision of Ascending Colon, Via Natural or Artificial Opening Endoscopic, Diagnostic (10/03/20) Excision of Stomach, Pylorus, Via Natural or Artificial Opening Endoscopic, Diagnostic (10/03/20) Labs on day of discharge: Laboratory Last Values WBC 8.1 X10*3/uL (4.8-10.8) 11/06/20 07:11 RBC 2.04 X10*6/uL (4.20-5.50) L 11/06/20 07:11 Hgb 7.5 g/dl (12.0-16.0) L 11/06/20 07:11 Hct 22.2 % (37-47) L 11/06/20 07:11 MCV 108.8 fL (80-98) H D 11/06/20 07:11 MCH 36.8 pg (27.0-33.0) H 11/06/20 07:11 MCHC 33.8 g/dl (31.0-35.0) 11/06/20 07:11 RDW 22.0 % (11.0-16.0) H 11/06/20 07:11 Plt Count 115 X10*3/uL (160-400) L 11/06/20 07:11 MPV 9.5 fL (9.4-12.3) 11/06/20 07:11 Immature Gran % (Auto) 0.4 % (0.0-0.4) 11/06/20 07:11 Neut % (Auto) 64.6 % (45-73) 11/06/20 07:11 Lymph % (Auto) 26.9 % (20-40) 11/06/20 07:11 [place] % (Auto) 6.1 % (2-11) 11/06/20 07:11 Eos % (Auto) 1.5 % (0-4) 11/06/20 07:11 Baso % (Auto) 0.5 % (0-2) 11/06/20 07:11 Lymph # (Auto) 2.2 X10*3/uL (1.2-4.9) 11/06/20 07:11 [place] # (Auto) 0.5 X10*3/uL (0.1-1.2) 11/06/20 07:11 Eos # (Auto) 0.1 X10*3/uL (0.0-0.4) 11/06/20 07:11 Baso # (Auto) 0.0 X10*3/uL (0.0-0.2) 11/06/20 07:11 Abs Immat Gran (auto) 0.03 X10*3/uL (0.00-0.03) 11/06/20 07:11 Absolute Neuts (auto) 5.2 X10*3/uL (2.0-8.3) 11/06/20 07:11 Absolute Nucleated RBC 0.000 X10*3/uL (0.0-0.012) 11/06/20 07:11 Nucleated RBC % (auto) 0.0 /100WBC (0.0-0.2) 11/06/20 07:11 Smear Tech's Comments VERIFIED 11/05/20 01:48 PT 20.6 SEC (10.8-13.0) H D 11/05/20 01:49 INR 1.7 (0.9-1.1) H 11/05/20 01:49 APTT 44.9 SEC (24.1-38.0) H 11/05/20 01:49 Sodium 137 mmol/L (135-145) 11/06/20 07:11 Potassium 3.6 mmol/l (3.3-5.1) 11/06/20 07:11 Chloride 110 mmol/L (96-108) H 11/06/20 07:11 Carbon Dioxide 21 mmol/L (22-29) L 11/06/20 07:11 Anion Gap 10 (12-20) L 11/06/20 07:11 BUN 8 mg/dL (9-16) L 11/06/20 07:11 Creatinine 0.79 mg/dL (0.5-1.4) 11/06/20 07:11 Estim Creat Clear Calc 107.3 11/06/20 07:11 Estimated GFR > 60 11/06/20 07:11 Random Glucose 113 mg/dL (60-115) 11/06/20 07:11 Lactic Acid 1.4 mmol/L (0.5-2.0) 11/05/20 01:47 Calcium 7.5 mg/dL (8.4-10.2) L 11/06/20 07:11 Magnesium 1.9 mg/dL (1.6-2.6) 11/05/20 01:49 Total Bilirubin 5.9 mg/dL (0.0-1.0) H 11/05/20 01:49 Direct Bilirubin 4.2 mg/dL (0.0-0.5) H 11/05/20 01:49 AST 48 U/L (5-31) H D 11/05/20 01:49 ALT 12 U/L (0-31) 11/05/20 01:49 Alkaline Phosphatase 131 U/L (39-117) H 11/05/20 01:49 Ammonia 113 umol/L (13-55) H 11/05/20 01:48 B-Natriuretic Peptide 344 pg/mL (<100) H 11/05/20 01:49 Total Protein 6.0 g/dL (6.5-8.0) L 11/05/20 01:49 Albumin 2.4 g/dL (3.5-5.0) L D 11/05/20 01:49 Lipase 31 U/L (8-78) 11/05/20 01:49 Urine Color DARK YELLOW 11/05/20 01:49 Urine Appearance CLEAR 11/05/20 01:49 Urine pH 6.0 (5.0-8.0) 11/05/20 01:49 Ur Specific [place] 1.025 (1.005-1.025) 11/05/20 01:49 Urine Protein TRACE MG/DL (NEG-TRACE) 11/05/20 01:49 Urine Glucose (UA) NEG MG/DL (NEG) 11/05/20 01:49 Urine Ketones NEG MG/DL (NEG) 11/05/20 01:49 Urine Blood NEG (NEG) 11/05/20 01:49 Urine Nitrite NEG (NEG) 11/05/20 01:49 Ur Leukocyte Esterase NEG (NEG) 11/05/20 01:49 Peritoneal WBC 0.117 X10*3/uL 11/05/20 14:01 Peritoneal RBC < 0.002 X10*6/uL 11/05/20 14:01 [place] Neutrophils 48 % 11/05/20 14:01 Periton Lymphocytes 19 % 11/05/20 14:01 Peritoneal Monocytes 15 % 11/05/20 14:01 Peritoneal Other Cells 18 % 11/05/20 14:01 Ethyl Alcohol < 10 mg/dL 11/05/20 01:49 COVID-19 ([facility]) Negative (Negative) 11/05/20 03:37 COVID-19 Clin Com See Note 11/05/20 03:37 Blood Type O Negative 11/05/20 01:49 Antibody Screen NEGATIVE 11/05/20 01:49 Crossmatch See Detail 11/05/20 01:49 Preliminary micro results at discharge 11/05/20 00:00 Urine Culture - Preliminary Urine [place] No growth to date. 11/05/20 14:01 Routine Culture - Preliminary Abdominal Fluid No growth to date. Anaerobic Culture - Preliminary Culture in progress. 11/05/20 02:16 Blood Culture - Preliminary Blood - Venous No growth after 24 hours. 11/05/20 02:15 Blood Culture - Preliminary Blood - Venous No growth after 24 hours. Discharge Plan Discharge Patient Disposition: Home, Self-Care Referrals: Physician,Unknown [Primary Care Provider] - Discharge Medications: New oxycodone 5 mg Tablet 5 mg PO Q6H PRN (Reason: Pain, Severe (Pain Scale 7-10)) Qty: 12 RF: 0 Continued sucralfate 1 gram tablet 1 tab PO QID RF: 0 pantoprazole 40 mg tablet,delayed release (DR/EC) 1 tab PO BID RF: 0 hydroxyzine HCl 25 mg tablet 1 tab PO Q6H PRN (Reason: anxiety) RF: 0 trazodone 50 mg tablet 50 mg PO BEDTIME PRN (Reason: insomnia) 30 Days Qty: 30 RF: 5 furosemide [Lasix] 40 mg tablet 40 mg PO BID 30 Days Qty: 60 RF: 1 ondansetron HCl [Zofran] 4 mg tablet 4 mg PO Q8H PRN (Reason: nausea and vomiting) Qty: 30 RF: 1 potassium chloride 20 mEq tablet extended release 20 meq PO DAILY 14 Days Qty: 14 RF: 1 Discontinued pantoprazole 40 mg tablet,delayed release (DR/EC) 1 tab PO BID RF: 0 Discharge Orders: Discharge Order (Routine); Ordered 11/06/20 Ordered By: Agusto Ballard Diet: regular diet Activity on Discharge: As tolerated Visit Report Forms: Patient Portal Discharge page Care Plan Goals: strongly recommend to avoid Tylenol, Motrin and alcohol Health Concerns: Ascites arrange for scheduled outpatient paracenteses/ Take high-protein diet Plan of Treatment: Outpatient follow-up with PCP and Gastroenterology in 1 week
== END 2020-11-06 11:53 | disposition home or self-care (01) | DRG 434 ==
LOC: HO.ED 03:46 → HO.S3 08:48
PROVIDERS: Admitting Provider Internal Medicine; Emergency Provider Internal Medicine; Visit Provider Hospitalist
DX: K70.31 Alcoholic cirrhosis of liver with ascites (principal); F17.210 Nicotine dependence, cigarettes, uncomplicated; Z71.6 Tobacco abuse counseling; Z20.828 Contact with and (suspected) exposure to other viral communicable diseases; D63.8 Anemia in other chronic diseases classified elsewhere; Z98.84 Bariatric surgery status; Z88.5 Allergy status to narcotic agent; Z79.891 Long term (current) use of opiate analgesic; Z79.899 Other long term (current) drug therapy
CPT/HCPCS: 36415; 36430; 49083; 71045; 80048; 80076; 80320; 81003; 82140; 83605; 83690; 83735; 83880; 85025; 85610; 85730; 86850; 86900; 86901; 86920; 86923; 87040; 87071; 87073; 87086; 87205; 87635; 89051; 96365; 96366; 96375; 99285; J1170; J1940; P9016; P9047

== ENCOUNTER → 2020-11-11 13:13 | Outpatient (BNVA) | payer MEDICARE, MEDICAID, SELFPAY | PROVIDERS: Visit Provider Internal Medicine | DX: K70.31 Alcoholic cirrhosis of liver with ascites (principal); R06.02 Shortness of breath; R60.1 Generalized edema | CPT/HCPCS: 93005; 99212 ==

== ENCOUNTER 2020-12-01 16:16 | Inpatient (IN) | payer MEDICARE, MEDICAID, SELFPAY ==
[2020-12-01 17:01] VITALS: BP 114/62; PULSE 84; RESP 18; TEMP 36.6; O2SAT 100; BMI 30.7
--- NOTE | 2020-12-01 18:09 | PC.NURSE ---
patient very difficult to get access, provider aware and attempted access in neck- provider unable to get access. tech attempting to draw blood
--- NOTE | 2020-12-01 18:09 | ED_ITS ---
HPI - Abdominal Pain General Chief Complaint: Abdominal Pain Stated Complaint: Abd pain Time Seen by Provider: 12/01/20 16:59 Source: patient Mode of arrival: ambulatory Limitations: no limitations History of Present Illness HPI narrative: Patient presents to ED for abdominal pain and increased swelling of the abdomen. Patient has history of cirrhosis. Patient states history of paracentesis in the past. Patient states no fever, chills, dysuria, or hematuria. Patient states slight weakness. Patient denies any coughing, chest pain, or shortness of breath MD elicited complaint: abdominal pain Related Data Home Medications Medication Instructions Recorded Confirmed hydroxyzine HCl 25 mg PO Q6H PRN 11/05/20 12/01/20 ferrous sulfate 325 mg PO BID 12/01/20 12/01/20 furosemide 40 mg PO DAILY@1200 12/01/20 12/01/20 furosemide 80 mg PO DAILY 12/01/20 12/01/20 midodrine 5 mg PO TID 12/01/20 12/01/20 mirtazapine 15 mg PO BEDTIME 12/01/20 12/01/20 pantoprazole 40 mg PO BID 12/01/20 12/01/20 sucralfate 1 g PO QIDWMHS 12/01/20 12/01/20 trazodone 50 mg PO BEDTIME PRN 12/01/20 12/01/20 Previous Rx's Medication Instructions Recorded ondansetron HCl 4 mg tablet 4 mg PO Q8H PRN #30 tab 10/12/20 spironolactone 50 mg tablet 100 mg PO DAILY 30 Days #60 tab 11/23/20 Allergies Allergy/AdvReac Type Severity Reaction Status Date / Time morphine [MORPHINE] Allergy Mild HIVES Verified 11/23/20 14:03 banana [BANANA] AdvReac Severe DIFFICULTY Verified 11/23/20 14:03 BREATHING Review of Systems Constitutional: Reports as per HPI and Reports no additional constitutional complaints Eyes: Reports as per HPI and Reports no additional eye complaints Reports system reviewed and no additional complaints, except as documented and Reports as per HPI Cardiovascular: Reports as per HPI and Reports no additional cardiovascular complaints Respiratory: Reports as per HPI and Reports no additional respiratory complaints Gastrointestinal: Reports as per HPI, Reports no additional gastrointestinal complaints and Reports abdominal pain Genitourinary: Reports no additional female genitourinary complaints and Reports as per HPI Musculoskeletal: Reports no additional musculoskeletal complaints and Reports as per HPI Reports system reviewed and no additional complaints, except as documented and Reports as per HPI Psychiatric: Reports no additional psychiatric complaints and Reports as per HPI Physical Exam Vital Signs: Vital Signs: Last Vital Signs Temp 97.8 F 12/01/20 22:17 Pulse 81 12/01/20 22:17 Resp 18 12/01/20 22:17 BP 109/70 12/01/20 22:17 Pulse Ox 100 12/01/20 22:17 Body Mass Index 30.7 Const: General: cooperative and awake Orientation/consciousness: patient oriented x3 HENMT: Head: Yes normal to inspection, Yes No palpable skull fracture present, Yes normocephalic, Yes atraumatic and No abrasion Eyes: Other: Icterus Neck: Neck: Yes normal visual inspection, Yes full ROM, Yes no ly mphadenopathy, Yes trachea midline, Yes supple and No tender Chest: Chest palpation & inspection: normal inspection of the chest and normal palpation of entire chest wall Resp: Effort & Inspection: normal respiratory effort and able to speak in complete sentences Auscultation: clear to auscultation bilaterally Cardio: Jugular venous distension: no JVD Heart sounds: S1 normal heart sound present and S2 normal heart sound present GI: Other: Abdomen is significantly distended Inspection: Yes normal to inspection Palpation (GI): Tenderness to palpation present (GI) (Mild) : General: No CVA tenderness and Yes no CVA tenderness Back/Spine/Pelvis: Back: no CVA tenderness, No CVA tenderness and No back tenderness Neuro: General: patient oriented x3 and CN's II-XI intact bilaterally Cranial nerves: Yes CN's II-XII intact bilaterally Extrem: Other: Lower extremities positive for swelling Psych: Appearance: grossly normal, well kempt and not disheveled Course Course Course Narrative: Patient will have lab work drawn. Reevaluation(s) Reevaluation #1: Patient states she has difficulty IV access. Eeg IV access was attempted on both sides of the neck and fell due to patient's pain being very small and the blue. Will do butterfly and await for ultrasound to try IV access of arm. Not successful we will discuss attendant with possibility of IJ Time: 18:18 Reevaluation #2: Patient's blood pressure on monitor systolic 95-107. Not safe for patient to have paracentesis during ED visit. Patient states usually they do paracentesis in the main floor due to her low blood pressure. Time: 19:17 Reevaluation #3: PACED EXCEPTED BY HOSPITALIST FOR ADMISSION FOR OBSERVATION AND POSSIBLE PARACENTESIS IN THE MORNING BY INTERVENTIONAL RADIOLOGY. HE DOES NOT BELIEVE PATIENT PRESENTLY HAS SPONTANEOUS BACTERIAL PERITONITIS. IJ acces placed by Dr. Townsend. Time: 22:23 MDM - Abdominal Pain MDM Narrative Medical decision making narrative: Abdominal pain. Asicites Lab Data Result diagrams: 12/01/20 18:45 12/01/20 18:45 Labs: Lab Results 12/01/20 12/01/20 12/01/20 Range/Units 18:45 18:45 18:45 WBC 6.7 (4.8-10.8) X10*3/uL RBC 2.00 L (4.20-5.50) X10*6/uL Hgb 7.5 L (12.0-16.0) g/dl Hct 22.6 L (37-47) % MCV 113.0 H (80-98) fL MCH 37.5 H (27.0-33.0) pg MCHC 33.2 (31.0-35.0) g/dl RDW 15.2 (11.0-16.0) % Plt Count 107 L (160-400) X10*3/uL MPV 9.3 L (9.4-12.3) fL Immature Gran % (Auto) Cancelled Neut % (Auto) Cancelled Lymph % (Auto) Cancelled [place] % (Auto) Cancelled Eos % (Auto) Cancelled Baso % (Auto) Cancelled Lymph # (Auto) Cancelled [place] # (Auto) Cancelled Eos # (Auto) Cancelled Baso # (Auto) Cancelled Abs Immat Gran (auto) Cancelled Absolute Neuts (auto) Cancelled Absolute Nucleated RBC 0.000 (0.0-0.012) X10*3/uL Nucleated RBC % (auto) 0.0 (0.0-0.2) /100WBC Neutrophils % (Manual) 55 (45-73) % Band Neutrophils % 2 L (3-5) % Lymphocytes % (Manual) 35 (20-40) % Atypical Lymphs % (Man) 4 (0-6) % Monocytes % (Manual) 4 (2-11) % Abs Neuts (Manual) 3.8 (2.2-7.9) X10*3/uL Lymphocytes # (Manual) 2.3 (0.6-4.8) X10*3/uL Atyp Lymphs # (Manual) 0.3 x10*3/uL Monocytes # (Manual) 0.3 (0.0-1.2) X10*3/uL Platelet Estimate DECREASED (NORMAL) Plt Morphology Comment NORMAL RBC Morphology NOTED Polychromasia 2+ Macrocytosis 2+ PT 21.7 H (10.8-13.0) SEC INR 1.8 H (0.9-1.1) APTT 42.2 H (24.1-38.0) SEC Sodium 136 (135-145) mmol/L Potassium 3.2 L (3.3-5.1) mmol/l Chloride 104 (96-108) mmol/L Carbon Dioxide 26 (22-29) mmol/L Anion Gap 9 L (12-20) BUN 8 L (9-16) mg/dL Creatinine 0.72 (0.5-1.4) mg/dL Estim Creat Clear Calc 126.5 Estimated GFR > 60 Random Glucose 95 (60-115) mg/dL Lactic Acid (0.5-2.0) mmol/L Calcium 7.5 L (8.4-10.2) mg/dL Total Bilirubin 5.3 H (0.0-1.0) mg/dL Direct Bilirubin 3.3 H (0.0-0.5) mg/dL AST 23 D (5-31) U/L ALT < 6 (0-31) U/L Alkaline Phosphatase 133 H (39-117) U/L Total Protein 5.5 L (6.5-8.0) g/dL Albumin 2.1 L (3.5-5.0) g/dL Lipase 31 (8-78) U/L Urine Color Urine Appearance Urine pH (5.0-8.0) Ur Specific [place] (1.005-1.025) Urine Protein (NEG-TRACE) MG/DL Urine Glucose (UA) (NEG) MG/DL Urine Ketones (NEG) MG/DL Urine Blood (NEG) Urine Nitrite (NEG) Ur Leukocyte Esterase (NEG) Urine RBC (0) /HPF Urine WBC (0-4) /HPF Ur Squamous Epith Cells /LPF Urine Bacteria /LPF Urine Mucus /LPF Urine Test (NEGATIVE) COVID-19 ([facility]) (Negative) COVID-19 Clin Com Blood Type Antibody Screen 12/01/20 12/01/20 12/01/20 Range/Units 18:45 18:45 20:51 WBC (4.8-10.8) X10*3/uL RBC (4.20-5.50) X10*6/uL Hgb (12.0-16.0) g/dl Hct (37-47) % MCV (80-98) fL MCH (27.0-33.0) pg MCHC (31.0-35.0) g/dl RDW (11.0-16.0) % Plt Count (160-400) X10*3/uL MPV (9.4-12.3) fL Immature Gran % (Auto) Neut % (Auto) Lymph % (Auto) [place] % (Auto) Eos % (Auto) Baso % (Auto) Lymph # (Auto) [place] # (Auto) Eos # (Auto) Baso # (Auto) Abs Immat Gran (auto) Absolute Neuts (auto) Absolute Nucleated RBC (0.0-0.012) X10*3/uL Nucleated RBC % (auto) (0.0-0.2) /100WBC Neutrophils % (Manual) (45-73) % Band Neutrophils % (3-5) % Lymphocytes % (Manual) (20-40) % Atypical Lymphs % (Man) (0-6) % Monocytes % (Manual) (2-11) % Abs Neuts (Manual) (2.2-7.9) X10*3/uL Lymphocytes # (Manual) (0.6-4.8) X10*3/uL Atyp Lymphs # (Manual) x10*3/uL Monocytes # (Manual) (0.0-1.2) X10*3/uL Platelet Estimate (NORMAL) Plt Morphology Comment RBC Morphology Polychromasia Macrocytosis PT (10.8-13.0) SEC INR (0.9-1.1) APTT (24.1-38.0) SEC Sodium (135-145) mmol/L Potassium (3.3-5.1) mmol/l Chloride (96-108) mmol/L Carbon Dioxide (22-29) mmol/L Anion Gap (12-20) BUN (9-16) mg/dL Creatinine (0.5-1.4) mg/dL Estim Creat Clear Calc Estimated GFR Random Glucose (60-115) mg/dL Lactic Acid 1.6 (0.5-2.0) mmol/L Calcium (8.4-10.2) mg/dL Total Bilirubin (0.0-1.0) mg/dL Direct Bilirubin (0.0-0.5) mg/dL AST (5-31) U/L ALT (0-31) U/L Alkaline Phosphatase (39-117) U/L Total Protein (6.5-8.0) g/dL Albumin (3.5-5.0) g/dL Lipase (8-78) U/L Urine Color Urine Appearance Urine pH (5.0-8.0) Ur Specific [place] (1.005-1.025) Urine Protein (NEG-TRACE) MG/DL Urine Glucose (UA) (NEG) MG/DL Urine Ketones (NEG) MG/DL Urine Blood (NEG) Urine Nitrite (NEG) Ur Leukocyte Esterase (NEG) Urine RBC (0) /HPF Urine WBC (0-4) /HPF Ur Squamous Epith Cells /LPF Urine Bacteria /LPF Urine Mucus /LPF Urine Test (NEGATIVE) COVID-19 ([facility]) Negative (Negative) COVID-19 Clin Com See Note Blood Type O Negative Antibody Screen NEGATIVE 12/01/20 Range/Units 20:51 WBC (4.8-10.8) X10*3/uL RBC (4.20-5.50) X10*6/uL Hgb (12.0-16.0) g/dl Hct (37-47) % MCV (80-98) fL MCH (27.0-33.0) pg MCHC (31.0-35.0) g/dl RDW (11.0-16.0) % Plt Count (160-400) X10*3/uL MPV (9.4-12.3) fL Immature Gran % (Auto) Neut % (Auto) Lymph % (Auto) [place] % (Auto) Eos % (Auto) Baso % (Auto) Lymph # (Auto) [place] # (Auto) Eos # (Auto) Baso # (Auto) Abs Immat Gran (auto) Absolute Neuts (auto) Absolute Nucleated RBC (0.0-0.012) X10*3/uL Nucleated RBC % (auto) (0.0-0.2) /100WBC Neutrophils % (Manual) (45-73) % Band Neutrophils % (3-5) % Lymphocytes % (Manual) (20-40) % Atypical Lymphs % (Man) (0-6) % Monocytes % (Manual) (2-11) % Abs Neuts (Manual) (2.2-7.9) X10*3/uL Lymphocytes # (Manual) (0.6-4.8) X10*3/uL Atyp Lymphs # (Manual) x10*3/uL Monocytes # (Manual) (0.0-1.2) X10*3/uL Platelet Estimate (NORMAL) Plt Morphology Comment RBC Morphology Polychromasia Macrocytosis PT (10.8-13.0) SEC INR (0.9-1.1) APTT (24.1-38.0) SEC Sodium (135-145) mmol/L Potassium (3.3-5.1) mmol/l Chloride (96-108) mmol/L Carbon Dioxide (22-29) mmol/L Anion Gap (12-20) BUN (9-16) mg/dL Creatinine (0.5-1.4) mg/dL Estim Creat Clear Calc Estimated GFR Random Glucose (60-115) mg/dL Lactic Acid (0.5-2.0) mmol/L Calcium (8.4-10.2) mg/dL Total Bilirubin (0.0-1.0) mg/dL Direct Bilirubin (0.0-0.5) mg/dL AST (5-31) U/L ALT (0-31) U/L Alkaline Phosphatase (39-117) U/L Total Protein (6.5-8.0) g/dL Albumin (3.5-5.0) g/dL Lipase (8-78) U/L Urine Color [place]O Urine Appearance CLEAR Urine pH 6.5 (5.0-8.0) Ur Specific [place] >= 1.030 H (1.005-1.025) Urine Protein 1+ H (NEG-TRACE) MG/DL Urine Glucose (UA) NEG (NEG) MG/DL Urine Ketones NEG (NEG) MG/DL Urine Blood NEG (NEG) Urine Nitrite POS H (NEG) Ur Leukocyte Esterase NEG (NEG) Urine RBC 0 (0) /HPF Urine WBC 1-4 (0-4) /HPF Ur Squamous Epith Cells 2+ /LPF Urine Bacteria 2+ /LPF Urine Mucus 1+ /LPF Urine Test NEGATIVE (NEGATIVE) COVID-19 ([facility]) (Negative) COVID-19 Clin Com Blood Type Antibody Screen Discharge Plan Discharge Clinical Impression: Alcoholic cirrhosis of liver, Ascites Patient Disposition: Admitted As Inpatient [facility] Past Medical History Medical History Acute GI bleeding Acute metabolic encephalopathy Alcohol withdrawal Asthma Chiari malformation CVA (cerebral vascular accident) Depression Depression with anxiety GI bleed Hemorrhoids Hepatitis C Hypokalemia NSVT (nonsustained ventricular tachycardia) Orthostatic hypotension Peptic ulcer disease Seizures Surgical History Gastric bypass status for obesity Hx of cholecystectomy Family History Family History Father Liver failure Kidney failure History of heart attack Mother Diabetes HTN (hypertension) Social History Social History Household Members: Family Housing: Apartment Alcohol intake: former Smoking Status: Current every day smoker Tobacco Type: Cigarette Packs Per Day: 0.5 Cigarettes Per Day: 10.0 Years Smoked: 12 Second Hand Smoke Exposure: No Use of substances other than those prescribed or required for medical reasons: No Advance Directives: No Advance Directives Information Provided: Yes service: No Current occupational status: unemployed
[2020-12-01] MEDS: diphenhydrAMINE HCL 50 MG/ML VIAL IM (18:55)
[2020-12-01] MEDS: HYDROmorphone HCl 0.5 MG/0.5 ML SYRINGE IM (18:56)
[2020-12-01 19:00] LABS: Hematocrit 22.6 % (37-47); Hemoglobin 7.5 g/dl (12.0-16.0); Mean Corpuscular HGB Conc 33.2 g/dl (31.0-35.0); Mean Corpuscular Hemoglobin 37.5 pg (27.0-33.0); Mean Platelet Volume 9.3 fL (9.4-12.3); Platelet Count 107 X10*3/uL (160-400); Red Cell Distribution Width 15.2 % (11.0-16.0); White Blood Count 6.7 X10*3/uL (4.8-10.8)
--- NOTE | 2020-12-01 19:00 | PC.NURSE ---
patient medicated with im meds per order
[2020-12-01 19:01] LABS: INTERNATIONAL NORM RATIO 1.8 (0.9-1.1); Prothrombin Time 21.7 SEC (10.8-13.0)
[2020-12-01 19:04] LABS: Partial Thromboplastin Time 42.2 SEC (24.1-38.0)
[2020-12-01 19:16] LABS: Lactic Acid 1.6 mmol/L (0.5-2.0)
[2020-12-01 19:21] LABS: Alanine Aminotransferase < 6 U/L (0-31); Albumin Level 2.1 g/dL (3.5-5.0); Alkaline Phosphatase 133 U/L (39-117); Anion Gap 9 (12-20); Aspartate Amino Transferase 23 U/L (5-31); Bilirubin Direct 3.3 mg/dL (0.0-0.5); Bilirubin Total 5.3 mg/dL (0.0-1.0); Blood Urea Nitrogen 8 mg/dL (9-16); Calcium 7.5 mg/dL (8.4-10.2); Carbon Dioxide 26 mmol/L (22-29); Chloride 104 mmol/L (96-108); Creatinine Clr Calc Pharmacy 126.5; Estimated Glomerular Filt Rate > 60; Glucose Random 95 mg/dL (60-115); Lipase 31 U/L (8-78); Potassium 3.2 mmol/l (3.3-5.1); Sodium 136 mmol/L (135-145); Total Protein 5.5 g/dL (6.5-8.0)
[2020-12-01 19:50] LABS: Atypical Lymph Absolute Manual 0.3 x10*3/uL; Atypical Lymphs Percent Manual 4 % (0-6); Band Neutrophils Percent 2 % (3-5); Lymphocytes Absolute Manual 2.3 X10*3/uL (0.6-4.8); Lymphocytes Percent Manual 35 % (20-40); Monocytes Absolute Manual 0.3 X10*3/uL (0.0-1.2); Monocytes Percent Manual 4 % (2-11); Neutrophils Absolute Manual 3.8 X10*3/uL (2.2-7.9); Neutrophils Percent Manual 55 % (45-73)
[2020-12-01 19:51] LABS: Macrocytosis 2+; Platelet Estimate DECREASED (NORMAL); Platelet Morphology Comment NORMAL; Polychromasia 2+; RBC Morphology NOTED
[2020-12-01 20:00] VITALS: BP 93/60; PULSE 80; RESP 18; TEMP 36.6; O2SAT 100
--- NOTE | 2020-12-01 20:52 | PC.NURSE ---
urine obtained, covid swab obtained, pt remains a&ox3, c/o 07/15 pain, vitals stable-bp soft-provider aware, will continue to monitor.
[2020-12-01 21:01] LABS: Glucose Urine UA NEG (NEG); Leukocyte Esterase Urine NEG (NEG); Nitrite Urine POS (NEG); PH 6.5 (5.0-8.0); Specific Gravity - Urine >= 1.030 (1.005-1.025); UACC Culture Trigger YES; Urine Blood NEG (NEG); Urine Ketones NEG (NEG); Urine Protein 1+ MG/DL (NEG-TRACE)
[2020-12-01 21:08] LABS: Appearance Urine CLEAR; Color Urine AMBER
[2020-12-01 21:14] LABS: Bacteria Urine 2+ /LPF; COVID-19 Test Negative (Negative); Mucus Urine 1+ /LPF; RBC Urine 0 /HPF (0); Squamous Epithelial Cell Urine 2+ /LPF
--- NOTE | 2020-12-01 21:19 | PM.IMHP ---
History of Present Illness Date of Service: 12/01/20 Chief Complaint: Abdominal pain / LE swelling 30 y/o female with known hx of Liver cirrhosis secondary to alcohol abuse requiring multiple admissions in the past for paracentesis and anemia, presents from home due to recurrent abdominal pain and persistent swelling of LE. Per history provided by the patient since last hospital admission on November of present year, patient has been having persistent symptoms of increase fluid retention with no improvement with home meds. Denies any fever or chills at this time. Reports occasional dark brown stool which has been present also in the past. Patient has known hx of Anemia of chronic disease/Iron deficiency as well as hx of peptic ulcer disease. On presentation to the ED BP is 93/60 mmHg which remains borderline, Hr of 80 bpm, no evidence of fever, saturating well. No leukocytosis. hgb of 7.5 which is baseline since past admission. INR of 1.8, K of 3.2 likely due to diuretics (supplemented). Total billirubin of 5.3 with direct of 3.3. IV pain control administered per ED and decision for admission given for IR guided paracentesis. Patient seen and examined at the bedside, laying down in bed in no acute distress. Reports tenderness on palpation of the abdomen. Pitting edema +2 up to knees bilaterally. Jaundice evident on sclera. Reports occasional chest pain on and off, at rest, associated with deep inspiration but not with exercise. Seen by cardio in the past per patient and was not told anything regarding this . PMHX: Acute GI bleeding Acute metabolic encephalopathy Alcohol withdrawal Asthma CHF (congestive heart failure) Chiari malformation CVA (cerebral vascular accident) Depression Depression with anxiety GI bleed Hemorrhoids Hepatitis C Hypokalemia NSVT (nonsustained ventricular tachycardia) Orthostatic hypotension Peptic ulcer disease Seizures PSx: Gastric bypass status for obesity Hx of cholecystectomy Toxic habits: Daily smoker 1/2 pack daily Denies alcohol abuse or IVDA Review of Systems Cardiovascular: Cardiovascular: Reports chest pain and Reports dyspnea Respiratory: Respiratory: Reports dyspnea Gastrointestinal: Gastrointestinal: Reports abdominal pain, Reports nausea and Reports vomiting PENDING SALE TO [facility] Medical History (Updated 12/01/20 @ 21:41 by Jose Garnados MD) Acute GI bleeding Acute metabolic encephalopathy Alcohol withdrawal Asthma Chiari malformation CVA (cerebral vascular accident) Depression Depression with anxiety GI bleed Hemorrhoids Hepatitis C Hypokalemia NSVT (nonsustained ventricular tachycardia) Orthostatic hypotension Peptic ulcer disease Seizures Functional capacity: independent ambulation Family History Father Liver failure Kidney failure History of heart attack Mother Diabetes HTN (hypertension) Surgical History Gastric bypass status for obesity Hx of cholecystectomy Social History Household Members: Family Housing: Apartment Alcohol intake: former Smoking Status: Current every day smoker Tobacco Type: Cigarette Packs Per Day: 0.5 Cigarettes Per Day: 10.0 Years Smoked: 12 Second Hand Smoke Exposure: No Use of substances other than those prescribed or required for medical reasons: No Advance Directives: No Advance Directives Information Provided: Yes service: No Current occupational status: unemployed Meds Allergies Allergy/AdvReac Type Severity Reaction Status Date / Time morphine [MORPHINE] Allergy Mild HIVES Verified 11/23/20 14:03 banana [BANANA] AdvReac Severe DIFFICULTY Verified 11/23/20 14:03 BREATHING Home Medications Medication Instructions Recorded Confirmed Type hydroxyzine HCl 1 tab PO Q6H PRN 11/05/20 11/23/20 History Physical Exam Vital Signs and Narrative: Vital Signs: Last Vital Signs Temp 97.9 F 12/01/20 20:00 Pulse 80 12/01/20 20:00 Resp 18 12/01/20 20:00 BP 93/60 12/01/20 20:00 Pulse Ox 100 12/01/20 20:00 Body Mass Index 30.7 Const: General: cooperative, comfortable and no acute distress Orientation/consciousness: oriented to person, oriented to place and oriented to time HENMT: Head: Yes normal to inspection Eyes: Sclerae: scleral abnormal (icteric ) Neck: Yes normal visual inspection Chest: Chest palpation & inspection: normal inspection of the chest Resp: Effort & Inspection: normal respiratory effort Auscultation: clear to auscultation bilaterally Cardio: Jugular venous distension: no JVD Rate: regular rate Rhythm: regular rhythm Heart sounds: S1 normal heart sound present and S2 normal heart sound present GI: Inspection: Yes distended (tender on palpation) Skin: General skin exam: no rashes or lesions noted Neuro: General: oriented to person, oriented to place and oriented to time Cognition (Neuro): normal cognition Extrem: General: Yes edema (pitting +2 up to knees bilaterally) Results Labs CBC and Chem 7: 12/01/20 18:45 12/01/20 18:45 Labs: Laboratory Results - last 24 hr 12/01/20 12/01/20 12/01/20 18:45 18:45 18:45 MCV 113.0 H MCH 37.5 H MCHC 33.2 RDW 15.2 Plt Count 107 L MPV 9.3 L Immature Gran % (Auto) Cancelled Neut % (Auto) Cancelled Lymph % (Auto) Cancelled [place] % (Auto) Cancelled Eos % (Auto) Cancelled Baso % (Auto) Cancelled Lymph # (Auto) Cancelled [place] # (Auto) Cancelled Eos # (Auto) Cancelled Baso # (Auto) Cancelled Abs Immat Gran (auto) Cancelled Absolute Neuts (auto) Cancelled Absolute Nucleated RBC 0.000 Nucleated RBC % (auto) 0.0 Neutrophils % (Manual) 55 Band Neutrophils % 2 L Lymphocytes % (Manual) 35 Atypical Lymphs % (Man) 4 Monocytes % (Manual) 4 Abs Neuts (Manual) 3.8 Lymphocytes # (Manual) 2.3 Atyp Lymphs # (Manual) 0.3 Monocytes # (Manual) 0.3 Platelet Estimate DECREASED Plt Morphology Comment NORMAL RBC Morphology NOTED Polychromasia 2+ Macrocytosis 2+ PT 21.7 H INR 1.8 H APTT 42.2 H Anion Gap 9 L Estim Creat Clear Calc 126.5 Estimated GFR > 60 Random Glucose 95 Lactic Acid Calcium 7.5 L Total Bilirubin 5.3 H Direct Bilirubin 3.3 H AST 23 D ALT < 6 Alkaline Phosphatase 133 H Total Protein 5.5 L Albumin 2.1 L Lipase 31 Urine Color Urine Appearance Urine pH Ur Specific [place] Urine Protein Urine Glucose (UA) Urine Ketones Urine Blood Urine Nitrite Ur Leukocyte Esterase Urine RBC Urine WBC Ur Squamous Epith Cells Urine Bacteria Urine Mucus COVID-19 ([facility]) COVID-19 Clin Com Blood Type Antibody Screen 12/01/20 12/01/20 12/01/20 18:45 18:45 20:51 MCV MCH MCHC RDW Plt Count MPV Immature Gran % (Auto) Neut % (Auto) Lymph % (Auto) [place] % (Auto) Eos % (Auto) Baso % (Auto) Lymph # (Auto) [place] # (Auto) Eos # (Auto) Baso # (Auto) Abs Immat Gran (auto) Absolute Neuts (auto) Absolute Nucleated RBC Nucleated RBC % (auto) Neutrophils % (Manual) Band Neutrophils % Lymphocytes % (Manual) Atypical Lymphs % (Man) Monocytes % (Manual) Abs Neuts (Manual) Lymphocytes # (Manual) Atyp Lymphs # (Manual) Monocytes # (Manual) Platelet Estimate Plt Morphology Comment RBC Morphology Polychromasia Macrocytosis PT INR APTT Anion Gap Estim Creat Clear Calc Estimated GFR Random Glucose Lactic Acid 1.6 Calcium Total Bilirubin Direct Bilirubin AST ALT Alkaline Phosphatase Total Protein Albumin Lipase Urine Color Urine Appearance Urine pH Ur Specific [place] Urine Protein Urine Glucose (UA) Urine Ketones Urine Blood Urine Nitrite Ur Leukocyte Esterase Urine RBC Urine WBC Ur Squamous Epith Cells Urine Bacteria Urine Mucus COVID-19 ([facility]) Negative COVID-19 Clin Com See Note Blood Type O Negative Antibody Screen NEGATIVE 12/01/20 20:51 MCV MCH MCHC RDW Plt Count MPV Immature Gran % (Auto) Neut % (Auto) Lymph % (Auto) [place] % (Auto) Eos % (Auto) Baso % (Auto) Lymph # (Auto) [place] # (Auto) Eos # (Auto) Baso # (Auto) Abs Immat Gran (auto) Absolute Neuts (auto) Absolute Nucleated RBC Nucleated RBC % (auto) Neutrophils % (Manual) Band Neutrophils % Lymphocytes % (Manual) Atypical Lymphs % (Man) Monocytes % (Manual) Abs Neuts (Manual) Lymphocytes # (Manual) Atyp Lymphs # (Manual) Monocytes # (Manual) Platelet Estimate Plt Morphology Comment RBC Morphology Polychromasia Macrocytosis PT INR APTT Anion Gap Estim Creat Clear Calc Estimated GFR Random Glucose Lactic Acid Calcium Total Bilirubin Direct Bilirubin AST ALT Alkaline Phosphatase Total Protein Albumin Lipase Urine Color PATO Urine Appearance CLEAR Urine pH 6.5 Ur Specific [place] >= 1.030 H Urine Protein 1+ H Urine Glucose (UA) NEG Urine Ketones NEG Urine Blood NEG Urine Nitrite POS H Ur Leukocyte Esterase NEG Urine RBC 0 Urine WBC 1-4 Ur Squamous Epith Cells 2+ Urine Bacteria 2+ Urine Mucus 1+ COVID-19 ([facility]) COVID-19 Clin Com Blood Type Antibody Screen Assessment and Plan (1) Abdominal pain: Status: Acute Likely secondary to ascites To be scheduled for US/IR guided paracentesis in the am Hold off on antibiotics at present until tap is done. No evidence of leukocytosis or evidence of fever, SBP unlikely continue with IV diuresis as ordered GI consult in the am (2) Anasarca: Status: Acute plan as above (3) Liver cirrhosis: Status: Acute plan as above (4) Hypokalemia: Status: Acute supplemented follow up repeat labs in the am (5) Anemia: Qualifiers: Anemia type: unspecified type Qualified Code(s): D64.9 - Anemia, unspecified Status: Acute Likely a mixed of AOCD and iron deficiency anemia continue with Iron supplements Hgb stable / baseline compared to previous admission Hold of on transfusion for now and follow up repeat CBC GI consult in the am
[2020-12-01] MEDS: Ketorolac Tromethamine 15 MG/ML VIAL IVPUSH (22:12)
[2020-12-01] MEDS: Lidocaine HCl 2 % MPF 5 ML VIAL INFILTRATI (22:12)
[2020-12-01] MEDS: 0.9 % Sodium Chloride 1,000 ML 999 ML IV (22:12)
[2020-12-01] MEDS: Potassium Chloride/H20 10 MEQ/100 ML PIGGYBACK 100 MEQ IV (22:12)
[2020-12-01 22:15] LABS: UPreg QC Valid YES; Urine Pregnancy NEGATIVE (NEGATIVE)
[2020-12-01 22:17] VITALS: BP 109/70; PULSE 81; RESP 18; TEMP 36.6; O2SAT 100
--- NOTE | 2020-12-01 22:18 | PC.NURSE ---
patient medicated for pain per order, vitals stable, ivf and potassium running per order, will continue to monitor
[2020-12-01 23:48] VITALS: BP 108/67; PULSE 80; RESP 16; O2SAT 100
[2020-12-02] VITALS (12 sets, daily range): BP systolic 89–126; BP diastolic 50–71; PULSE 80–89; RESP 18–20; TEMP 36.5–37.1; O2SAT 97–100; BMI 30.7
--- NOTE | 2020-12-02 | US_ITS ---
EXAMINATION: ULTRASOUND-GUIDED PARACENTESIS. CLINICAL INFORMATION: Ascites and cirrhosis. COMPARISON: Ultrasound paracentesis 11/05/2020 TECHNIQUE: Following explaining ultrasound-guided paracentesis procedure, benefits and risk, a written consent was obtained. Patient was placed supine on ultrasound stretcher and preliminary ultrasound imaging was obtained. An optimal site was selected, marked, cleaned and draped in usual sterile manner. 1% lidocaine was injected at puncture site. Through a small skin incision a 4 Bulgarian Moe Deloeh catheter was advanced into the peritoneal fluid. After observing fluid return, stylet was withdrawn and catheter connected to vacuum bottle via connecting cannula. After obtaining all fluid and observing no more fluid return, catheter was withdrawn and complete hemostasis achieved at puncture site. Sterile band aid applied post procedure. Patient tolerated procedure extremely well. IV 25 g of albumin was administered during the exam. FINDINGS: On preliminary ultrasound imaging there is a large amount of free fluid in the abdomen. Approximately 6.5 L of light yellowish fluid was drained without immediate consultations. This fluid was sent to lab for albumin, glucose, LDH, total protein and routine culture. US/US paracentesis abd w/image IMPRESSION: Successful ultrasound-guided paracentesis performed without immediate complications.
[2020-12-02] MEDS: traZODone HCL 50 MG TABLET PO ×2 (00:07→20:35)
[2020-12-02] MEDS: 0.9 % Sodium Chloride 1,000 ML 999 ML IV (00:08)
--- NOTE | 2020-12-02 00:42 | PC.NURSE ---
call to floor for report, floor to call back
[2020-12-02] MEDS: 0.9 % Sodium Chloride Flush 3 ML SYRINGE IVFLUSH ×4 (01:34→20:36)
[2020-12-02] MEDS: HYDROmorphone HCl 1 MG/ML SYRINGE IVPUSH (02:03)
[2020-12-02] MEDS: HYDROmorphone HCl 0.5 MG/0.5 ML SYRINGE IVPUSH (06:39)
[2020-12-02 06:57] LABS: MANUAL DIFF FLAG NO
[2020-12-02 07:31] LABS: Anion Gap 13 (12-20); Blood Urea Nitrogen 9 mg/dL (9-16); Calcium 7.3 mg/dL (8.4-10.2); Carbon Dioxide 22 mmol/L (22-29); Chloride 106 mmol/L (96-108); Estimated Glomerular Filt Rate > 60; Glucose Random 74 mg/dL (60-115); Potassium 3.3 mmol/l (3.3-5.1); Sodium 138 mmol/L (135-145)
[2020-12-02 07:43] LABS: Basophils Percent Auto 0.5 % (0-2); Eosinophils Absolute Auto 0.2 X10*3/uL (0.0-0.4); Eosinophils Percent Auto 2.6 % (0-4); Hematocrit 21.7 % (37-47); Hemoglobin 7.2 g/dl (12.0-16.0); Imm Gran Abs Auto 0.02 X10*3/uL (0.00-0.03); Imm Gran Pct Auto 0.3 % (0.0-0.4); Lymphocytes Absolute Auto 2.5 X10*3/uL (1.2-4.9); Lymphocytes Percent Auto 41.4 % (20-40); Mean Corpuscular HGB Conc 33.2 g/dl (31.0-35.0); Mean Corpuscular Hemoglobin 37.7 pg (27.0-33.0); Mean Platelet Volume 9.7 fL (9.4-12.3); Monocytes Absolute Auto 0.6 X10*3/uL (0.1-1.2); Monocytes Percent Auto 10.4 % (2-11); Neutrophils Absolute Auto 2.7 X10*3/uL (2.0-8.3); Neutrophils Percent Auto 44.8 % (45-73); Platelet Count 112 X10*3/uL (160-400); Red Blood Count 1.91 X10*6/uL (4.20-5.50); Red Cell Distribution Width 15.1 % (11.0-16.0)
[2020-12-02 07:47] LABS: Mean Corpuscular Volume 113.6 fL (80-98)
[2020-12-02] MEDS: Midodrine HCl 5 MG TABLET PO ×3 (08:16→20:35)
[2020-12-02] MEDS: Spironolactone 25 MG TABLET 100 MG PO (08:17)
[2020-12-02] MEDS: Ferrous Sulfate 324 MG TABLET.DR PO ×2 (08:17→20:35)
--- NOTE | 2020-12-02 08:48 | MHC.CM.PN ---
CM met with Patient at bedside.Patient lives with her Mother in an apartment and she is functionally independent. Patient's goal is to return home and CM has initiated and will follow for dc planning. CINDY addressed with Patient and the original has been given to her and a copy has been placed on the chart. PCP is DR. Wilder Hernandez. HCP are [facility] @ [phone] & [phone] respectfully.
[2020-12-02 09:31] LABS: Lactate Dehydrogenase 166 U/L (122-220)
--- NOTE | 2020-12-02 09:49 | PM.GICN ---
History of Present Illness Data of Consult Service Date: 12/02/20 Primary Care Provider: Wilder Carty MD HPI Reason for consult: alcoholic liver disease 30-year-old female with hx of gastric bypass, choelcystectomy, depression and alcoholism and decompensated alcoholic hepatitis with cirrhosis who I am seeing for assessment for alcoholic liver disease and anemia she presented this time with increased abdo distention associated with increasing abdominal discomfort in multiple areas of the abdomen and leg swelling. she admits to melenic type stool once a week but otherwise the stool is usu brown. she has felt feverish, and has had intermittent coffee colored emesis. She also has noted increased pain and cramps in thighs. Appetite has been poor, weight stable. denies hematuria, no dysuria. she has had numerous presentations and admission to hospital for various GI or liver related complaints and has often left AMA. she says she has been alcohol free for 4 months now and been taking her medications. lasb with HGB around 7 g/dl, been steady for a while endoscopic TESTS: EGD with nonbleeding anastomosis site ulcer on 01/04/2020 repeat EGD and sigmoidoscopy on 01/21/2020 , EGD with mild gastritis, healing ulcer, sigmoidoscopy showed internal and external hemorrhoids , Repeat EGD: 04/2020-- ulcer healed, some granulation tissue noted Review of Systems Review of Systems: Yes all other systems are reviewed and are negative [facility] Past Medical History Medical History Acute GI bleeding Acute metabolic encephalopathy Alcohol withdrawal Asthma Chiari malformation CVA (cerebral vascular accident) Depression Depression with anxiety GI bleed Hemorrhoids Hepatitis C Hypokalemia NSVT (nonsustained ventricular tachycardia) Orthostatic hypotension Peptic ulcer disease Seizures Functional capacity: independent ambulation Family History Family History Father Liver failure Kidney failure History of heart attack Mother Diabetes HTN (hypertension) Surgical History Surgical History Gastric bypass status for obesity Hx of cholecystectomy Social History Social History Household Members: Family Housing: House Do you presently have visiting nurse or other home services: No Unable to assess alcohol history related to: Refusing to respond Alcohol intake: former Smoking Status: Current every day smoker Tobacco Type: Cigarette Packs Per Day: 0.5 Cigarettes Per Day: 10.0 Years Smoked: 12 Smoked in Last 30 Days: Yes Patient Interested in Nicotine Replacement: Yes Patient Given Instructions on How to Stop Smoking: No Second Hand Smoke Exposure: Yes Use of substances other than those prescribed or required for medical reasons: No Currently Displaying Signs/Symptoms of Drug Intoxication Withdrawal: No Any prior treatment program specific to substance use: No Have you been hit, kicked, punched, or otherwise hurt by someone within the past year? If so, by whom?: No Do you feel safe in your current relationship?: Yes Is there a partner from a previous relationship who is making you feel unsafe now?: No Are you made to feel afraid or neglected: No Advance Directives: No Advance Directives Information Provided: Yes Do you have thoughts of harming others: None Do you have a plan to hurt others: No Plan Recently lost weight without trying: No service: No Current occupational status: disabled Meds Allergies Allergy/AdvReac Type Severity Reaction Status Date / Time morphine [MORPHINE] Allergy Mild HIVES Verified 11/23/20 14:03 banana [BANANA] AdvReac Severe DIFFICULTY Verified 11/23/20 14:03 BREATHING Home Medications Medication Instructions Recorded Confirmed Type hydroxyzine HCl 25 mg PO Q6H PRN 11/05/20 12/01/20 History ferrous sulfate 325 mg PO BID 12/01/20 12/01/20 History furosemide 40 mg PO DAILY@1200 12/01/20 12/01/20 History furosemide 80 mg PO DAILY 12/01/20 12/01/20 History midodrine 5 mg PO TID 12/01/20 12/01/20 History mirtazapine 15 mg PO BEDTIME 12/01/20 12/01/20 History pantoprazole 40 mg PO BID 12/01/20 12/01/20 History sucralfate 1 g PO QIDWMHS 12/01/20 12/01/20 History trazodone 50 mg PO BEDTIME PRN 12/01/20 12/01/20 History Physical Exam Vital Signs: Vital Signs: Last Vital Signs Temp 98.7 F 12/02/20 07:25 Pulse 89 12/02/20 08:16 Resp 18 12/02/20 07:25 BP 97/58 L 12/02/20 08:16 Pulse Ox 100 12/02/20 07:25 Body Mass Index 30.7 Const: General: cooperative, comfortable, no acute distress and awake Orientation/consciousness: oriented to person, oriented to place, oriented to time and patient oriented x3 HENMT: Head: Yes normal to inspection, Yes No palpable skull fracture present, Yes normocephalic, Yes atraumatic and No abrasion Eyes: Other: Icterus Sclerae: scleral abnormal (icteric ) Neck: Neck: Yes normal visual inspection, Yes full ROM, Yes no lymphadenopathy, Yes trachea midline, Yes supple and No tender Chest: Chest palpation & inspection: normal inspection of the chest and normal palpation of entire chest wall Resp: Effort & Inspection: normal respiratory effort and able to speak in complete sentences Auscultation: clear to auscultation bilaterally Cardio: Jugular venous distension: no JVD Rate: regular rate Rhythm: regular rhythm Heart sounds: S1 normal heart sound present and S2 normal heart sound present GI: Other: Abdomen is significantly distended Inspection: Yes normal to inspection and Yes distended (tender on palpation) Palpation (GI): Tenderness to palpation present (GI) (Mild) : General: No CVA tenderness and Yes no CVA tenderness Back/Spine/Pelvis: Back: no CVA tenderness, No CVA tenderness and No back tenderness Skin: General skin exam: no rashes or lesions noted Neuro: General: oriented to person, oriented to place, oriented to time, patient oriented x3 and CN's II-XI intact bilaterally Cranial nerves: Yes CN's II-XII intact bilaterally Cognition (Neuro): normal cognition Extrem: Other: Lower extremities positive for swelling General: Yes edema (pitting +2 up to knees bilaterally) Psych: Appearance: grossly normal, well kempt and not disheveled Results Labs CBC & Chem 7: 12/02/20 05:46 12/02/20 05:46 Labs: Short CBC 12/01/20 12/02/20 Range/Units 18:45 05:46 WBC 6.7 6.0 (4.8-10.8) X10*3/uL Hgb 7.5 L 7.2 L (12.0-16.0) g/dl Hct 22.6 L 21.7 L (37-47) % Plt Count 107 L 112 L (160-400) X10*3/uL BMP 12/01/20 12/02/20 18:45 05:46 Sodium 136 138 Potassium 3.2 L 3.3 Chloride 104 106 Carbon Dioxide 26 22 BUN 8 L 9 Creatinine 0.72 0.66 Calcium 7.5 L 7.3 L Liver Function 12/01/20 Range/Units 18:45 Total Bilirubin 5.3 H (0.0-1.0) mg/dL Direct Bilirubin 3.3 H (0.0-0.5) mg/dL AST 23 D (5-31) U/L ALT < 6 (0-31) U/L Alkaline Phosphatase 133 H (39-117) U/L Albumin 2.1 L (3.5-5.0) g/dL Urine 12/01/20 Range/Units 20:51 Urine Color PATO Urine Appearance CLEAR Urine pH 6.5 (5.0-8.0) Ur Specific [place] >= 1.030 H (1.005-1.025) Urine Protein 1+ H (NEG-TRACE) MG/DL Urine Glucose (UA) NEG (NEG) MG/DL Assessment and Plan (1) Liver cirrhosis: Status: Acute (2) Anemia: Qualifiers: Anemia type: unspecified type Qualified Code(s): D64.9 - Anemia, unspecified Status: Acute 1/ Abdominal pain multifactorial prob from combination of ascites, and marginal ulceration 2/ Ascites- need to r/o SBP, 3/ chronic microcytic anemia, could be due to combination of malabsorption 2/2 prior gastric bypass, and intermittent blood loss 4/ protein calorie malnutrition and sarcopenia PLAN: 1/ Tap ascites, diagnostic and therapeutic-- and check for SBP, if pos then ABX and 25% albumin 1.5 g/l on D#1 and 1g/l on D#3 2/ If neg for SBP then aldactone and lasix, salt restriction 3/ us RUQ and duplex to r/o liver mass and PVT 4/ high protein diet 1.1g/kg per day, can use BOOST or ENSURE 5/ PPI BID and carafate, 6/ check iron studies if low then IV iron daily whilst in patient for 3 days e.g ferrlecit standard dosing 7/ will decide on EGD depending on above 8/ watch for alcohol withdrawal 9/ smoking cessation advice
--- NOTE | 2020-12-02 11:19 | MHC.CM.PN ---
Patient has been switched from OBSERVATION TO INPATIENT; IMM was addressed with Patient.
[2020-12-02] MEDS: oxyCODONE HCl Immed Release 5 MG TABLET PO ×3 (11:20→23:24)
--- NOTE | 2020-12-02 14:22 | HO.PM.IMPN ---
Subjective Subjective Date of Service: 12/02/20 Interval History: patient seen and examined at bedside patient was reporting abdominal pain Cardiovascular Cardiovascular: Reports chest pain and Reports dyspnea Respiratory Respiratory: Reports dyspnea Gastrointestinal Gastrointestinal: Reports abdominal pain, Reports nausea and Reports vomiting Physical Exam Vital Signs: Vital Signs: Last Vital Signs Temp 98.4 F 12/02/20 11:06 Pulse 84 12/02/20 11:06 Resp 20 12/02/20 11:06 BP 91/59 L 12/02/20 11:06 Pulse Ox 97 12/02/20 11:06 Body Mass Index 30.7 Const: General: cooperative, comfortable and no acute distress Orientation/consciousness: oriented to person, oriented to place and oriented to time HENMT: Head: Yes normal to inspection Eyes: Sclerae: scleral abnormal (icteric ) Neck: Neck: Yes normal visual inspection Chest: Chest palpation & inspection: normal inspection of the chest Resp: Effort & Inspection: normal respiratory effort Auscultation: clear to auscultation bilaterally Cardio: Jugular venous distension: no JVD Rate: regular rate Rhythm: regular rhythm Heart sounds: S1 normal heart sound present and S2 normal heart sound present GI: Inspection: Yes distended (tender on palpation) Skin: General skin exam: no rashes or lesions noted Neuro: General: oriented to person, oriented to place and oriented to time Cognition (Neuro): normal cognition Extrem: General: Yes edema (pitting +2 up to knees bilaterally) Objective Data Current Medications Generic Name Dose Route Start Last Admin Trade Name Freq PRN Reason Stop Dose Admin Ferrous Sulfate 324 mg 12/02/20 09:00 12/02/20 08:17 Ferrous Sulfate 324 Mg Tablet. PO 324 mg BID ALTHEA Administration Midodrine 5 mg 12/02/20 09:00 12/02/20 08:16 Midodrine Hcl 5 Mg Tablet PO 5 mg TID ALTHEA Administration Mirtazapine 15 mg 12/02/20 21:00 Mirtazapine 15 Mg Tablet PO BEDTIME ALTHEA Omeprazole 20 mg 12/02/20 21:00 Omeprazole 20 Mg Capsule. PO BID ALTHEA Oxycodone HCl 5 mg 12/02/20 11:11 12/02/20 11:20 Oxycodone Hcl Immed Release 5 Mg Tablet PO 5 mg Q6H PRN Administration Pain, Moderate (Pain Scale 4-6 Pharmacy Consult 1 each 12/01/20 21:18 Consult Rx Perform Med Rec MISCELLANE ONCE PRN Consult order Sodium Chloride 3 ml 12/02/20 01:24 12/02/20 08:20 0.9 % Sodium Chloride Flush 3 Ml Syringe IVFLUSH 3 ml QSHIFT ALTHEA Administration Spironolactone 100 mg 12/02/20 09:00 12/02/20 08:17 Spironolactone 25 Mg Tablet PO 100 mg DAILY ALTHEA Administration Protocol Sucralfate 1 gm 12/02/20 16:30 Sucralfate Oral Suspension 1 Gm/10 Ml Oral.Susp PO QIDACHS [facility] Trazodone HCl 50 mg 12/01/20 22:26 12/02/20 00:07 Trazodone Hcl 50 Mg Tablet PO 50 mg BEDTIME PRN Administration Sleep Labs CBC & Chem 7: 12/02/20 05:46 12/02/20 05:46 Microbiology Microbiology Results: Microbiology 12/01/20 21:09 Urine clean catch - Clean Catch Midstream Urine Culture - Preliminary Culture in progress. Assessment and Plan (1) Abdominal pain: Status: Acute (2) Anasarca: Status: Acute (3) Liver cirrhosis: Status: Acute (4) Hypokalemia: Status: Acute (5) Anemia: Status: Acute Assessment and Plan: Abdominal distension with pain rule out SBP alcoholic cirrhosis plan for ultrasound-guided paracentesis today follow-up labs post paracentesis will start on IV antibiotic if there is evidence of SBP on paracentesis continue pain management chronic anemia continue with Iron supplements monitor CBC continue PPI and Carafate per GI hypokalemia replaced and resolved monitor electrolytes DVT prophylaxis Venodyne given anemia and thrombocytopenia
[2020-12-02] MEDS: Sucralfate Oral Suspension 1 GM/10 ML ORAL.SUSP PO ×2 (16:43→20:36)
[2020-12-02] MEDS: Lidocaine HCl 1 % 20 ML VIAL 5 ML SUBCUT (17:02)
[2020-12-02] MEDS: Mirtazapine 15 MG TABLET PO (20:35)
[2020-12-02] MEDS: Omeprazole 20 MG CAPSULE.DR PO (20:35)
[2020-12-03] VITALS (13 sets, daily range): BP systolic 87–109; BP diastolic 46–60; PULSE 75–89; RESP 16–19; TEMP 36.3–37.1; O2SAT 97–100
[2020-12-03] MEDS: oxyCODONE HCl Immed Release 5 MG TABLET PO ×3 (05:42→17:51)
[2020-12-03] MEDS: Omeprazole 20 MG CAPSULE.DR PO ×2 (07:50→21:24)
[2020-12-03] MEDS: Midodrine HCl 5 MG TABLET PO ×3 (07:50→21:24)
[2020-12-03] MEDS: Ferrous Sulfate 324 MG TABLET.DR PO ×2 (07:51→21:24)
[2020-12-03 07:56] LABS: Albumin Peritoneal Fluid 0.4; LDH Peritoneal Fluid 30; Total Protein Peritoneal Fluid 1.1
[2020-12-03 07:58] LABS: Glucose Peritoneal Fluid 100
[2020-12-03] MEDS: Sucralfate Oral Suspension 1 GM/10 ML ORAL.SUSP PO ×4 (08:05→21:23)
[2020-12-03] MEDS: Spironolactone 25 MG TABLET 100 MG PO (08:05)
[2020-12-03 09:45] LABS: Basophils Absolute Auto 0.1 X10*3/uL (0.0-0.2); Basophils Percent Auto 0.9 % (0-2); Eosinophils Absolute Auto 0.1 X10*3/uL (0.0-0.4); Eosinophils Percent Auto 1.7 % (0-4); Imm Gran Abs Auto 0.01 X10*3/uL (0.00-0.03); Imm Gran Pct Auto 0.2 % (0.0-0.4); Lymphocytes Absolute Auto 2.4 X10*3/uL (1.2-4.9); Lymphocytes Percent Auto 41.6 % (20-40); MANUAL DIFF FLAG SCAN; Mean Corpuscular HGB Conc 33.2 g/dl (31.0-35.0); Mean Corpuscular Hemoglobin 37.4 pg (27.0-33.0); Mean Platelet Volume 9.6 fL (9.4-12.3); Monocytes Absolute Auto 0.5 X10*3/uL (0.1-1.2); Monocytes Percent Auto 8.6 % (2-11); Neutrophils Absolute Auto 2.7 X10*3/uL (2.0-8.3); Red Blood Count 1.82 X10*6/uL (4.20-5.50); Red Cell Distribution Width 14.8 % (11.0-16.0); SCAN SMEAR FLAG 1; White Blood Count 5.7 X10*3/uL (4.8-10.8)
[2020-12-03 09:52] LABS: Mean Corpuscular Volume 112.6 fL (80-98); Platelet Count 89 X10*3/uL (160-400)
[2020-12-03 09:55] LABS: Hematocrit 20.5 % (37-47); Hemoglobin 6.8 g/dl (12.0-16.0)
[2020-12-03 10:07] LABS: Blood Urea Nitrogen 8 mg/dL (9-16); Calcium 7.3 mg/dL (8.4-10.2); Estimated Glomerular Filt Rate > 60; Glucose Random 94 mg/dL (60-115)
[2020-12-03 10:17] LABS: Anion Gap 10 (12-20); Carbon Dioxide 24 mmol/L (22-29); Chloride 108 mmol/L (96-108); Potassium 3.6 mmol/l (3.3-5.1); Sodium 138 mmol/L (135-145)
[2020-12-03 10:52] LABS: SLIDE REVIEW VERIFIED
--- NOTE | 2020-12-03 11:33 | MHC.CM.PN ---
DP Home no services. Her Sister will provide transportation to home. LOS R/T H/H decrease. Patient is receiving 1U PRBC. GI is following.
[2020-12-03] MEDS: HYDROmorphone HCl 0.5 MG/0.5 ML SYRINGE IVPUSH (13:04)
--- NOTE | 2020-12-03 14:07 | P.PNIM_ITS ---
Subjective Subjective Date of Service: 12/03/20 Interval History: Patient seen and examined at bedside patient was reporting abdominal pain Cardiovascular Cardiovascular: Reports chest pain and Reports dyspnea Respiratory Respiratory: Reports dyspnea Gastrointestinal Gastrointestinal: Reports abdominal pain, Reports nausea and Reports vomiting Physical Exam Vital Signs: Vital Signs: Last Vital Signs Temp 98.8 F 12/03/20 12:00 Pulse 85 12/03/20 12:00 Resp 16 12/03/20 12:00 BP 97/46 L 12/03/20 12:00 Pulse Ox 97 12/03/20 12:00 Body Mass Index 30.7 Const: General: cooperative, comfortable and no acute distress Orientation/consciousness: oriented to person, oriented to place and oriented to time HENMT: Head: Yes normal to inspection Eyes: Sclerae: scleral abnormal (icteric ) Neck: Neck: Yes normal visual inspection Chest: Chest palpation & inspection: normal inspection of the chest Resp: Effort & Inspection: normal respiratory effort Auscultation: clear to auscultation bilaterally Cardio: Jugular venous distension: no JVD Rate: regular rate Rhythm: regular rhythm Heart sounds: S1 normal heart sound present and S2 normal heart sound present GI: Inspection: Yes distended (tender on palpation) Skin: General skin exam: no rashes or lesions noted Neuro: General: oriented to person, oriented to place and oriented to time Cognition (Neuro): normal cognition Extrem: General: Yes edema (pitting +2 up to knees bilaterally) Objective Data Current Medications Generic Name Dose Route Start Last Admin Trade Name Freq PRN Reason Stop Dose Admin Ferrous Sulfate 324 mg 12/02/20 09:00 12/03/20 07:51 Ferrous Sulfate 324 Mg Tablet. PO 324 mg BID ALTHEA Administration Midodrine 5 mg 12/02/20 09:00 12/03/20 07:50 Midodrine Hcl 5 Mg Tablet PO 5 mg TID ALTHEA Administration Mirtazapine 15 mg 12/02/20 21:00 12/02/20 20:35 Mirtazapine 15 Mg Tablet PO 15 mg BEDTIME ALTHEA Administration Omeprazole 20 mg 12/02/20 21:00 12/03/20 07:50 Omeprazole 20 Mg Capsule. PO 20 mg BID ALTHEA Administration Oxycodone HCl 5 mg 12/02/20 11:11 12/03/20 11:53 Oxycodone Hcl Immed Release 5 Mg Tablet PO 5 mg Q6H PRN Administration Pain, Moderate (Pain Scale 4-6 Pharmacy Consult 1 each 12/01/20 21:18 Consult Rx Perform Med Rec MISCELLANE ONCE PRN Consult order Sodium Chloride 3 ml 12/02/20 01:24 12/03/20 08:10 0.9 % Sodium Chloride Flush 3 Ml Syringe IVFLUSH Not Given QSHIFT [facility] Spironolactone 100 mg 12/02/20 09:00 12/03/20 08:05 Spironolactone 25 Mg Tablet PO 100 mg DAILY ALTHEA Administration Protocol Sucralfate 1 gm 12/02/20 16:30 12/03/20 11:54 Sucralfate Oral Suspension 1 Gm/10 Ml Oral.Susp PO 1 gm QIDACHS ALTHEA Administration Trazodone HCl 50 mg 12/01/20 22:26 12/02/20 20:35 Trazodone Hcl 50 Mg Tablet PO 50 mg BEDTIME PRN Administration Sleep Labs CBC & Chem 7: 12/03/20 09:36 12/03/20 09:36 Microbiology Microbiology Results: Microbiology 12/01/20 21:09 Urine clean catch - Clean Catch Midstream Urine Culture - Final 12/02/20 16:00 Ascites Fluid Gram Stain - Final 12/02/20 16:00 Ascites Fluid Routine Culture - Preliminary No growth to date. 12/02/20 16:00 Ascites Fluid Anaerobic Culture - Preliminary Culture in progress. 12/01/20 18:45 Blood - Venous Blood Culture - Preliminary No growth after 24 hours. 12/01/20 18:42 Blood - Venous Blood Culture - Preliminary No growth after 24 hours. Assessment and Plan (1) Abdominal pain: Status: Acute (2) Anasarca: Status: Acute (3) Liver cirrhosis: Status: Acute (4) Hypokalemia: Status: Acute (5) Anemia: Status: Acute Assessment and Plan: Abdominal distension with pain rule out SBP alcoholic cirrhosis plan for ultrasound-guided paracentesis today follow-up labs post paracentesis will start on IV antibiotic if there is evidence of SBP on paracentesis continue pain management chronic anemia hemoglobin dropped to 6.8 will transfuse 1 unit of PRBCs continue with Iron supplements monitor CBC continue PPI and Carafate per GI hypokalemia replaced and resolved monitor electrolytes DVT prophylaxis Venodyne given anemia and thrombocytopenia
[2020-12-03] MEDS: 0.9 % Sodium Chloride Flush 3 ML SYRINGE IVFLUSH (16:31)
[2020-12-03] MEDS: Acetaminophen 325 MG TABLET 650 MG PO (19:50)
[2020-12-03] MEDS: Mirtazapine 15 MG TABLET PO (21:24)
[2020-12-03] MEDS: traZODone HCL 50 MG TABLET PO (22:58)
[2020-12-04] VITALS (9 sets, daily range): BP systolic 90–106; BP diastolic 43–59; PULSE 67–86; RESP 18–28; TEMP 36.7–37.1; O2SAT 96–100
[2020-12-04] MEDS: 0.9 % Sodium Chloride 1,000 ML 500 ML IVCONT (00:07)
[2020-12-04] MEDS: Midodrine HCl 5 MG TABLET PO (00:08)
--- NOTE | 2020-12-04 01:04 | PC.NURSE ---
P: Hypotension I: Assessed patient, obtained VS, notified provider, administered medication. E: Pt noted to have a BP of 87/54, pt c/o of nausea. Dr. Kaur made aware, new orders for Midodrine 5mg PO once, 1 liter NS IV bolus, and Promethazine 6.25mg IV. Medications administered, effectiveness pending, will continue to monitor.
[2020-12-04] MEDS: oxyCODONE HCl Immed Release 5 MG TABLET PO ×5 (01:35→20:15)
[2020-12-04] MEDS: Furosemide 20 MG/2 ML VIAL IVPUSH (09:04)
[2020-12-04] MEDS: 0.9 % Sodium Chloride Flush 3 ML SYRINGE IVFLUSH ×2 (09:04→15:55)
[2020-12-04] MEDS: Omeprazole 20 MG CAPSULE.DR PO ×2 (09:05→22:42)
[2020-12-04] MEDS: Spironolactone 25 MG TABLET 100 MG PO (09:05)
[2020-12-04] MEDS: Sucralfate Oral Suspension 1 GM/10 ML ORAL.SUSP PO ×4 (09:05→22:43)
[2020-12-04] MEDS: Ferrous Sulfate 324 MG TABLET.DR PO ×2 (09:05→22:43)
[2020-12-04] MEDS: Midodrine HCl 5 MG TABLET 10 MG PO ×3 (09:05→22:41)
[2020-12-04 10:11] LABS: Basophils Percent Auto 0.6 % (0-2); Eosinophils Absolute Auto 0.1 X10*3/uL (0.0-0.4); Eosinophils Percent Auto 2.1 % (0-4); Hematocrit 25.2 % (37-47); Hemoglobin 8.5 g/dl (12.0-16.0); Imm Gran Abs Auto 0.01 X10*3/uL (0.00-0.03); Imm Gran Pct Auto 0.2 % (0.0-0.4); Lymphocytes Absolute Auto 2.2 X10*3/uL (1.2-4.9); Lymphocytes Percent Auto 35.3 % (20-40); MANUAL DIFF FLAG SCAN; Mean Corpuscular HGB Conc 33.7 g/dl (31.0-35.0); Mean Corpuscular Hemoglobin 36.3 pg (27.0-33.0); Mean Corpuscular Volume 107.7 fL (80-98); Mean Platelet Volume 9.4 fL (9.4-12.3); Monocytes Absolute Auto 0.5 X10*3/uL (0.1-1.2); Monocytes Percent Auto 7.1 % (2-11); Neutrophils Absolute Auto 3.5 X10*3/uL (2.0-8.3); Neutrophils Percent Auto 54.7 % (45-73); Platelet Count 102 X10*3/uL (160-400); Red Blood Count 2.34 X10*6/uL (4.20-5.50); Red Cell Distribution Width 19.3 % (11.0-16.0); SCAN SMEAR FLAG 1; White Blood Count 6.3 X10*3/uL (4.8-10.8)
[2020-12-04 10:39] LABS: SLIDE REVIEW VERIFIED
[2020-12-04 10:41] LABS: Anion Gap 10 (12-20); Blood Urea Nitrogen 9 mg/dL (9-16); Calcium 7.5 mg/dL (8.4-10.2); Carbon Dioxide 25 mmol/L (22-29); Chloride 107 mmol/L (96-108); Creatinine Clr Calc Pharmacy 128.3; Estimated Glomerular Filt Rate > 60; Glucose Random 99 mg/dL (60-115); Potassium 3.8 mmol/L (3.3-5.1); Sodium 138 mmol/L (135-145)
[2020-12-04] MEDS: ondansetron HCL 4 MG/2 ML VIAL IVPUSH ×2 (11:40→20:15)
[2020-12-04] MEDS: Albumin Human 25 % 100 ML IV ×2 (11:41→13:06)
--- NOTE | 2020-12-04 16:58 | HO.PM.IMPN ---
Subjective Subjective Date of Service: 12/04/20 Interval History: Patient seen and examined at bedside patient was reporting abdominal pain and nausea Cardiovascular Cardiovascular: Reports chest pain and Reports dyspnea Respiratory Respiratory: Reports dyspnea Gastrointestinal Gastrointestinal: Reports abdominal pain, Reports nausea and Reports vomiting Physical Exam Vital Signs: Vital Signs: Last Vital Signs Temp 98.1 F 12/04/20 15:20 Pulse 75 12/04/20 15:55 Resp 19 12/04/20 15:20 BP 94/52 L 12/04/20 15:55 Pulse Ox 96 12/04/20 15:20 Body Mass Index 30.7 Const: General: cooperative, comfortable and no acute distress Orientation/consciousness: oriented to person, oriented to place and oriented to time HENMT: Head: Yes normal to inspection Eyes: Sclerae: scleral abnormal (icteric ) Neck: Neck: Yes normal visual inspection Chest: Chest palpation & inspection: normal inspection of the chest Resp: Effort & Inspection: normal respiratory effort Auscultation: clear to auscultation bilaterally Cardio: Jugular venous distension: no JVD Rate: regular rate Rhythm: regular rhythm Heart sounds: S1 normal heart sound present and S2 normal heart sound present GI: Inspection: Yes distended (tender on palpation) Skin: General skin exam: no rashes or lesions noted Neuro: General: oriented to person, oriented to place and oriented to time Cognition (Neuro): normal cognition Extrem: General: Yes edema (pitting +2 up to knees bilaterally) Objective Data Current Medications Generic Name Dose Route Start Last Admin Trade Name Freq PRN Reason Stop Dose Admin Ferrous Sulfate 324 mg 12/02/20 09:00 12/04/20 09:05 Ferrous Sulfate 324 Mg Tablet. PO 324 mg BID ALTHEA Administration Furosemide 20 mg 12/04/20 09:00 12/04/20 09:04 Furosemide 20 Mg/2 Ml Vial IVPUSH 20 mg DAILY ALTHEA Administration Protocol Midodrine 10 mg 12/04/20 09:00 12/04/20 15:55 Midodrine Hcl 5 Mg Tablet PO 10 mg TID ALTHEA Administration Mirtazapine 15 mg 12/02/20 21:00 12/03/20 21:24 Mirtazapine 15 Mg Tablet PO 15 mg BEDTIME ALTHEA Administration Omeprazole 20 mg 12/02/20 21:00 12/04/20 09:05 Omeprazole 20 Mg Capsule. PO 20 mg BID ALTHEA Administration Ondansetron HCl 4 mg 12/04/20 11:14 12/04/20 11:40 Ondansetron Hcl 4 Mg/2 Ml Vial IVPUSH 4 mg Q8H PRN Administration Nausea and Vomiting Oxycodone HCl 5 mg 12/04/20 11:21 12/04/20 15:55 Oxycodone Hcl Immed Release 5 Mg Tablet PO 5 mg Q4H PRN Administration Pain, Moderate (Pain Scale 4-6 Pharmacy Consult 1 each 12/01/20 21:18 Consult Rx Perform Med Rec MISCELLANE ONCE PRN Consult order Polyethylene Glycol 17 gm 12/05/20 09:00 Polyethylene Glycol 3350 17 Gm Powd.Pack PO DAILY ALTHEA Sodium Chloride 3 ml 12/02/20 01:24 12/04/20 15:55 0.9 % Sodium Chloride Flush 3 Ml Syringe IVFLUSH 3 ml QSHIFT [facility] Administration Spironolactone 100 mg 12/02/20 09:00 12/04/20 09:05 Spironolactone 25 Mg Tablet PO 100 mg DAILY [facility] Administration Protocol Sucralfate 1 gm 12/02/20 16:30 12/04/20 15:55 Sucralfate Oral Suspension 1 Gm/10 Ml Oral.Susp PO 1 gm QIDACHS [facility] Administration Trazodone HCl 50 mg 12/01/20 22:26 12/03/20 22:58 Trazodone Hcl 50 Mg Tablet PO 50 mg BEDTIME PRN Administration Sleep Labs CBC & Chem 7: 12/04/20 09:25 12/04/20 09:25 Microbiology Microbiology Results: Microbiology 12/02/20 16:00 Ascites Fluid Gram Stain - Final 12/02/20 16:00 Ascites Fluid Routine Culture - Preliminary No growth to date. 12/02/20 16:00 Ascites Fluid Anaerobic Culture - Preliminary Culture in progress. 12/01/20 18:42 Blood - Venous Blood Culture - Preliminary No growth after 48 hours. 12/01/20 18:45 Blood - Venous Blood Culture - Preliminary No growth after 48 hours. 12/01/20 21:09 Urine clean catch - Clean Catch Midstream Urine Culture - Final Assessment and Plan (1) Abdominal pain: Status: Acute (2) Anasarca: Status: Acute (3) Liver cirrhosis: Status: Acute (4) Hypokalemia: Status: Acute (5) Anemia: Status: Acute Assessment and Plan: Abdominal distension secondary to ascites alcoholic cirrhosis status post paracentesis with removal of 6 L of fluid fluid studies negative for SBP continue Aldactone started on Lasix received albumin post paracentesis continue pain management Acute on chronic anemia hemoglobin dropped to 6.8 will transfuse 1 unit of PRBCs hemoglobin improved to 8 continue with Iron supplements monitor CBC continue PPI and Carafate per GI patient reporting dark-colored stools gastroenterology Dr contreras planning to do EGD on Sunday Hypokalemia replaced and resolved monitor electrolytes DVT prophylaxis Venodyne given anemia and thrombocytopenia
[2020-12-04] MEDS: Acetaminophen 325 MG TABLET 650 MG PO (22:40)
[2020-12-04] MEDS: Mirtazapine 15 MG TABLET PO (22:42)
[2020-12-04] MEDS: traZODone HCL 50 MG TABLET PO (22:42)
[2020-12-05] MEDS: oxyCODONE HCl Immed Release 5 MG TABLET PO ×3 (00:34→09:17)
[2020-12-05] MEDS: 0.9 % Sodium Chloride Flush 3 ML SYRINGE IVFLUSH ×2 (00:34→08:01)
[2020-12-05 03:48] VITALS: BP 95/53; PULSE 87; RESP 18; TEMP 37.1; O2SAT 97
[2020-12-05 07:06] LABS: Basophils Absolute Auto 0.1 X10*3/uL (0.0-0.2); Basophils Percent Auto 0.8 % (0-2); Eosinophils Absolute Auto 0.1 X10*3/uL (0.0-0.4); Eosinophils Percent Auto 1.7 % (0-4); Hematocrit 24.2 % (37-47); Hemoglobin 7.9 g/dl (12.0-16.0); Imm Gran Abs Auto 0.02 X10*3/uL (0.00-0.03); Imm Gran Pct Auto 0.3 % (0.0-0.4); Lymphocytes Absolute Auto 2.2 X10*3/uL (1.2-4.9); Lymphocytes Percent Auto 33.6 % (20-40); MANUAL DIFF FLAG SCAN; Mean Corpuscular HGB Conc 32.6 g/dl (31.0-35.0); Mean Corpuscular Hemoglobin 35.7 pg (27.0-33.0); Mean Corpuscular Volume 109.5 fL (80-98); Mean Platelet Volume 9.8 fL (9.4-12.3); Monocytes Absolute Auto 0.5 X10*3/uL (0.1-1.2); Monocytes Percent Auto 7.8 % (2-11); Neutrophils Absolute Auto 3.7 X10*3/uL (2.0-8.3); Neutrophils Percent Auto 55.8 % (45-73); Red Blood Count 2.21 X10*6/uL (4.20-5.50); Red Cell Distribution Width 19.1 % (11.0-16.0); SCAN SMEAR FLAG 1; White Blood Count 6.6 X10*3/uL (4.8-10.8)
[2020-12-05 07:11] LABS: Anion Gap 12 (12-20); Blood Urea Nitrogen 11 mg/dL (9-16); Calcium 7.9 mg/dL (8.4-10.2); Carbon Dioxide 25 mmol/L (22-29); Chloride 107 mmol/L (96-108); Creatinine Clr Calc Pharmacy 113.8; Estimated Glomerular Filt Rate > 60; Glucose Random 127 mg/dL (60-115); Potassium 3.9 mmol/L (3.3-5.1); Sodium 140 mmol/L (135-145)
[2020-12-05 07:28] VITALS: BP 96/58; PULSE 79; RESP 18; TEMP 36.7; O2SAT 96
[2020-12-05 07:41] LABS: Platelet Count 96 X10*3/uL (160-400)
[2020-12-05] MEDS: Omeprazole 20 MG CAPSULE.DR PO (08:00)
[2020-12-05] MEDS: Midodrine HCl 5 MG TABLET 10 MG PO (08:00)
[2020-12-05] MEDS: Furosemide 20 MG/2 ML VIAL IVPUSH (08:01)
[2020-12-05] MEDS: polyethylene glycoL 3350 17 GM POWD.PACK PO (08:01)
[2020-12-05] MEDS: Sucralfate Oral Suspension 1 GM/10 ML ORAL.SUSP PO (08:01)
[2020-12-05] MEDS: Spironolactone 25 MG TABLET 100 MG PO (08:01)
[2020-12-05] MEDS: Ferrous Sulfate 324 MG TABLET.DR PO (08:01)
[2020-12-05 08:33] LABS: SLIDE REVIEW VERIFIED
--- NOTE | 2020-12-05 09:43 | P.PNGI_ITS ---
Subjective Subjective Date of Service: 12/05/20 Interval History: Anemia, with melena, probable slow bleed, got unti fo blood with increase in HGB, ongoing upper abdo pain receiving carafate and PPI Physical Exam Vital Signs: Vital Signs: Last Vital Signs Temp 98.0 F 12/05/20 07:28 Pulse 79 12/05/20 07:28 Resp 18 12/05/20 07:28 BP 96/58 L 12/05/20 07:28 Pulse Ox 96 12/05/20 07:28 Body Mass Index 30.7 Const: General: ill appearing and poor hygiene Nutritional Appearance: malnourished Orientation/consciousness: patient oriented x3 Eyes: Sclerae: scleral abnormal Resp: Effort & Inspection: normal respiratory effort GI: Inspection: Yes Abdominal wall edema Palpation (GI): Firmness to palpation present (GI) and Tenderness to palpation present (GI) Percussion: Y es dullness to percussion Auscultation: normal bowel sounds Skin: General skin exam: jaundice Neuro: General: patient oriented x3 Extrem: General: Yes muscle atrophy Psych: Appearance: disheveled Speech and movement: Clear speech present Affect: Labile affect present Objective Data Labs CBC & Chem 7: 12/05/20 05:50 12/05/20 05:50 Labs: Laboratory Results - last 24 hr 12/04/20 12/04/20 12/05/20 09:25 09:25 05:50 WBC 6.3 6.6 RBC 2.34 L D 2.21 L Hgb 8.5 L D 7.9 L Hct 25.2 L D 24.2 L MCV 107.7 H 109.5 H MCH 36.3 H 35.7 H MCHC 33.7 32.6 RDW 19.3 H 19.1 H Plt Count 102 L 96 L MPV 9.4 9.8 Immature Gran % (Auto) 0.2 0.3 Neut % (Auto) 54.7 55.8 Lymph % (Auto) 35.3 33.6 [place] % (Auto) 7.1 7.8 Eos % (Auto) 2.1 1.7 Baso % (Auto) 0.6 0.8 Lymph # (Auto) 2.2 2.2 [place] # (Auto) 0.5 0.5 Eos # (Auto) 0.1 0.1 Baso # (Auto) 0.0 0.1 Abs Immat Gran (auto) 0.01 0.02 Absolute Neuts (auto) 3.5 3.7 Absolute Nucleated RBC 0.000 0.000 Nucleated RBC % (auto) 0.0 0.0 Smear Tech's Comments VERIFIED VERIFIED Sodium 138 Potassium 3.8 Chloride 107 Carbon Dioxide 25 Anion Gap 10 L BUN 9 Creatinine 0.71 Estim Creat Clear Calc 128.3 Estimated GFR > 60 Random Glucose 99 Calcium 7.5 L 12/05/20 05:50 WBC RBC Hgb Hct MCV MCH MCHC RDW Plt Count MPV Immature Gran % (Auto) Neut % (Auto) Lymph % (Auto) [place] % (Auto) Eos % (Auto) Baso % (Auto) Lymph # (Auto) [place] # (Auto) Eos # (Auto) Baso # (Auto) Abs Immat Gran (auto) Absolute Neuts (auto) Absolute Nucleated RBC Nucleated RBC % (auto) Smear Tech's Comments Sodium 140 Potassium 3.9 Chloride 107 Carbon Dioxide 25 Anion Gap 12 BUN 11 Creatinine 0.80 Estim Creat Clear Calc 113.8 Estimated GFR > 60 Random Glucose 127 H Calcium 7.9 L Microbiology Microbiology Results: Microbiology 12/02/20 16:00 Ascites Fluid Gram Stain - Final 12/02/20 16:00 Ascites Fluid Routine Culture - Final No growth after 2 days 12/02/20 16:00 Ascites Fluid Anaerobic Culture - Preliminary No growth to date. 12/01/20 18:42 Blood - Venous Blood Culture - Preliminary No growth after 48 hours. 12/01/20 18:45 Blood - Venous Blood Culture - Preliminary No growth after 48 hours. 12/01/20 21:09 Urine clean catch - Clean Catch Midstream Urine Culture - Final Progress Note: A&P Assessment and plan (1) Abdominal pain: Status: Acute (2) Anemia: Status: Acute (3) Liver cirrhosis: Status: Acute Assessment and Plan: 1/ Acute on chronic blood loss anemia, likely recurrence of anastomotic ulcer - plan for EGD 12/06/2020 - use PPI and sucralfate meantime 2/ Liver cirrhosis and ascites - will need further tap - titrate diuretics as tolerated per BP and renal fn, can cont with midodrine to allow BP to tolerate diuretics 3/ Sarcopenia and atrophy, malnutrition - high protein diet, 1.1g/kg per day Fall Risk Details Current Medications: Current Medications Generic Name Dose Route Start Last Admin Trade Name Harinderq PRN Reason Stop Dose Admin Ferrous Sulfate 324 mg 12/02/20 09:00 12/05/20 08:01 Ferrous Sulfate 324 Mg Tablet. PO 324 mg BID ALTHEA Administration Furosemide 20 mg 12/04/20 09:00 12/05/20 08:01 Furosemide 20 Mg/2 Ml Vial IVPUSH 20 mg DAILY ALTHEA Administration Protocol Midodrine 10 mg 12/04/20 09:00 12/05/20 08:00 Midodrine Hcl 5 Mg Tablet PO 10 mg TID ALTHEA Administration Mirtazapine 15 mg 12/02/20 21:00 12/04/20 22:42 Mirtazapine 15 Mg Tablet PO 15 mg BEDTIME ALTHEA Administration Omeprazole 20 mg 12/02/20 21:00 12/05/20 08:00 Omeprazole 20 Mg Capsule. PO 20 mg BID ALTHEA Administration Ondansetron HCl 4 mg 12/04/20 11:14 12/04/20 20:15 Ondansetron Hcl 4 Mg/2 Ml Vial IVPUSH 4 mg Q8H PRN Administration Nausea and Vomiting Oxycodone HCl 5 mg 12/04/20 11:21 12/05/20 09:17 Oxycodone Hcl Immed Release 5 Mg Tablet PO 5 mg Q4H PRN Administration Pain, Moderate (Pain Scale 4-6 Pharmacy Consult 1 each 12/01/20 21:18 Consult Rx Perform Med Rec MISCELLANE ONCE PRN Consult order Polyethylene Glycol 17 gm 12/05/20 09:00 12/05/20 08:01 Polyethylene Glycol 3350 17 Gm Powd.Pack PO 17 gm DAILY ALTHEA Administration Sodium Chloride 3 ml 12/02/20 01:24 12/05/20 08:01 0.9 % Sodium Chloride Flush 3 Ml Syringe IVFLUSH 3 ml QSHIFT ALTHEA Administration Spironolactone 100 mg 12/02/20 09:00 12/05/20 08:01 Spironolactone 25 Mg Tablet PO 100 mg DAILY ALTHEA Administration Protocol Sucralfate 1 gm 12/02/20 16:30 12/05/20 08:01 Sucralfate Oral Suspension 1 Gm/10 Ml Oral.Susp PO 1 gm QIDACHS ALTHEA Administration Trazodone HCl 50 mg 12/01/20 22:26 12/04/20 22:42 Trazodone Hcl 50 Mg Tablet PO 50 mg BEDTIME PRN Administration Sleep Time Spent With Patient Time: Total time spent is greater than 50% in coordination of care (as documented) at patient's floor/unit and/or counseling patient: Time with patient: 15 - 24 minutes
--- NOTE | 2020-12-05 18:24 | PM.DS ---
DS: Providers Provider Date of Service: 12/28/20 Date of admission: 12/01/20 23:43 Primary care physician: Wilder Hernandez. Consults: 12/02/20 01:24 Consult to Gastroenterology Routine Consulting Provider: [facility] [place] G[facility] Reason for consultation: Ascites / Anemia Has provider been notified: No DS: Diagnosis Discharge Diagnosis (1) Abdominal pain: Status: Acute (2) Anasarca: Status: Acute (3) Liver cirrhosis: Status: Acute (4) Hypokalemia: Status: Acute (5) Anemia: Status: Acute DS: Medications Discharge Medications Home Medications: Home Medications Medication Instructions Recorded Confirmed hydroxyzine HCl 25 mg PO Q6H PRN 11/05/20 12/01/20 ferrous sulfate 325 mg PO BID 12/01/20 12/01/20 furosemide 40 mg PO DAILY@1200 12/01/20 12/01/20 furosemide 80 mg PO DAILY 12/01/20 12/01/20 midodrine 5 mg PO TID 12/01/20 12/01/20 mirtazapine 15 mg PO BEDTIME 12/01/20 12/01/20 pantoprazole 40 mg PO BID 12/01/20 12/01/20 sucralfate 1 g PO QIDWMHS 12/01/20 12/01/20 trazodone 50 mg PO BEDTIME PRN 12/01/20 12/01/20 Previous Rx's Medication Instructions Recorded ondansetron HCl 4 mg tablet 4 mg PO Q8H PRN #30 tab 10/12/20 spironolactone 50 mg tablet 100 mg PO DAILY 30 Days #60 tab 11/23/20 DS: Summary Hospital Course Hospital Course: History of presenting illness Chief Complaint: Abdominal pain / LE swelling 30 y/o female with known hx of Liver cirrhosis secondary to alcohol abuse requiring multiple admissions in the past for paracentesis and anemia, presents from home due to recurrent abdominal pain and persistent swelling of LE. Per history provided by the patient since last hospital admission on November of present year, patient has been having persistent symptoms of increase fluid retention with no improvement with home meds. Denies any fever or chills at this time. Reports occasional dark brown stool which has been present also in the past. Patient has known hx of Anemia of chronic disease/Iron deficiency as well as hx of peptic ulcer disease. On presentation to the ED BP is 93/60 mmHg which remains borderline, Hr of 80 bpm, no evidence of fever, saturating well. No leukocytosis. hgb of 7.5 which is baseline since past admission. INR of 1.8, K of 3.2 likely due to diuretics (supplemented). Total billirubin of 5.3 with direct of 3.3. IV pain control administered per ED and decision for admission given for IR guided paracentesis. Patient seen and examined at the bedside, laying down in bed in no acute distress. Reports tenderness on palpation of the abdomen. Pitting edema +2 up to knees bilaterally. Jaundice evident on sclera. Reports occasional chest pain on and off, at rest, associated with deep inspiration but not with exercise. Seen by cardio in the past per patient and was not told anything regarding this . Hospital course Abdominal distension secondary to ascites, with history of alcoholic cirrhosis, status post paracentesis with removal of 6 L of fluid fluid studies negative for SBP patient continued on Aldactone and started on Lasix received albumin plan was for continued diuresis and pain management, due to acute on chronic anemia patient received 1 unit of packed RBC hemoglobin improved but continued to trend down since, patient was seen by Dr. Katz and plan was for upper endoscopy tomorrow but patient decided to leave hospital against medical advice Hypokalemia replaced and resolved recommended to follow electrolytes closely since on a diuretic therapy Time Spent with Patient Time attestation: Total time spent providing and/or coordinating discharge services: Discharge coordination time: Greater than 30 minutes Physical Exam Vital Signs: Vital Signs: Last Vital Signs Temp 98.0 F 12/05/20 07:28 Pulse 79 12/05/20 07:28 Resp 18 12/05/20 07:28 BP 96/58 L 12/05/20 07:28 Pulse Ox 96 12/05/20 07:28 Body Mass Index 30.7 General ill-appearing awake alert no distress Icteric sclera Lungs clear to auscultation Abdomen soft distended bowel sounds audible Extremities edema Neuro nonfocal DS: Data Data Completed and Pending Completed studies during hospitalization [Text1]: Procedures Control Bleeding in Gastrointestinal Tract, Via Natural or Artificial Opening Endoscopic (10/03/20) Detoxification Services for Substance Abuse Treatment (10/03/20) Drainage of Peritoneal Cavity with Drainage Device, Percutaneous Approach (11/05/20) Drainage of Peritoneal Cavity, Percutaneous Approach (10/10/20) Excision of Ascending Colon, Via Natural or Artificial Opening Endoscopic, Diagnostic (10/03/20) Excision of Stomach, Pylorus, Via Natural or Artificial Opening Endoscopic, Diagnostic (10/03/20) Transfusion of Nonautologous Red Blood Cells into Peripheral Vein, Percutaneous Approach (11/05/20) Labs on day of discharge: Laboratory Tests 12/01/20 12/01/20 12/01/20 18:45 18:45 18:45 WBC 6.7 RBC 2.00 L Hgb 7.5 L Hct 22.6 L MCV 113.0 H MCH 37.5 H MCHC 33.2 RDW 15.2 Plt Count 107 L MPV 9.3 L Immature Gran % (Auto) Cancelled Neut % (Auto) Cancelled Lymph % (Auto) Cancelled [place] % (Auto) Cancelled Eos % (Auto) Cancelled Baso % (Auto) Cancelled Lymph # (Auto) Cancelled [place] # (Auto) Cancelled Eos # (Auto) Cancelled Baso # (Auto) Cancelled Abs Immat Gran (auto) Cancelled Absolute Neuts (auto) Cancelled Absolute Nucleated RBC 0.000 Nucleated RBC % (auto) 0.0 Neutrophils % (Manual) 55 Band Neutrophils % 2 L Lymphocytes % (Manual) 35 Atypical Lymphs % (Man) 4 Monocytes % (Manual) 4 Abs Neuts (Manual) 3.8 Lymphocytes # (Manual) 2.3 Atyp Lymphs # (Manual) 0.3 Monocytes # (Manual) 0.3 Platelet Estimate DECREASED Plt Morphology Comment NORMAL RBC Morphology NOTED Polychromasia 2+ Macrocytosis 2+ Smear Tech's Comments PT 21.7 H INR 1.8 H APTT 42.2 H Sodium 136 Potassium 3.2 L Chloride 104 Carbon Dioxide 26 Anion Gap 9 L BUN 8 L Creatinine 0.72 Estim Creat Clear Calc 126.5 Estimated GFR > 60 Random Glucose 95 Lactic Acid Calcium 7.5 L Total Bilirubin 5.3 H Direct Bilirubin 3.3 H AST 23 D ALT < 6 Alkaline Phosphatase 133 H Lactate Dehydrogenase Total Protein 5.5 L Albumin 2.1 L Lipase 31 Urine Color Urine Appearance Urine pH Ur Specific [place] Urine Protein Urine Glucose (UA) Urine Ketones Urine Blood Urine Nitrite Ur Leukocyte Esterase Urine RBC Urine WBC Ur Squamous Epith Cells Urine Bacteria Urine Mucus Urine Test Peritoneal Tot Protein Peritoneal Albumin Peritoneal LDH Peritoneal Glucose COVID-19 ([facility]) COVID-19 Clin Com Blood Type Antibody Screen Crossmatch 12/01/20 12/01/20 12/01/20 18:45 18:45 20:51 WBC RBC Hgb Hct MCV MCH MCHC RDW Plt Count MPV Immature Gran % (Auto) Neut % (Auto) Lymph % (Auto) [place] % (Auto) Eos % (Auto) Baso % (Auto) Lymph # (Auto) [place] # (Auto) Eos # (Auto) Baso # (Auto) Abs Immat Gran (auto) Absolute Neuts (auto) Absolute Nucleated RBC Nucleated RBC % (auto) Neutrophils % (Manual) Band Neutrophils % Lymphocytes % (Manual) Atypical Lymphs % (Man) Monocytes % (Manual) Abs Neuts (Manual) Lymphocytes # (Manual) Atyp Lymphs # (Manual) Monocytes # (Manual) Platelet Estimate Plt Morphology Comment RBC Morphology Polychromasia Macrocytosis Smear Tech's Comments PT INR APTT Sodium Potassium Chloride Carbon Dioxide Anion Gap BUN Creatinine Estim Creat Clear Calc Estimated GFR Random Glucose Lactic Acid 1.6 Calcium Total Bilirubin Direct Bilirubin AST ALT Alkaline Phosphatase Lactate Dehydrogenase Total Protein Albumin Lipase Urine Color Urine Appearance Urine pH Ur Specific [place] Urine Protein Urine Glucose (UA) Urine Ketones Urine Blood Urine Nitrite Ur Leukocyte Esterase Urine RBC Urine WBC Ur Squamous Epith Cells Urine Bacteria Urine Mucus Urine Test Peritoneal Tot Protein Peritoneal Albumin Peritoneal LDH Peritoneal Glucose COVID-19 ([facility]) Negative COVID-19 Clin Com See Note Blood Type O Negative Antibody Screen NEGATIVE Crossmatch See Detail 12/01/20 12/02/20 12/02/20 20:51 05:46 05:46 WBC 6.0 RBC 1.91 L Hgb 7.2 L Hct 21.7 L MCV 113.6 H MCH 37.7 H MCHC 33.2 RDW 15.1 Plt Count 112 L MPV 9.7 Immature Gran % (Auto) 0.3 Neut % (Auto) 44.8 L Lymph % (Auto) 41.4 H [place] % (Auto) 10.4 Eos % (Auto) 2.6 Baso % (Auto) 0.5 Lymph # (Auto) 2.5 [place] # (Auto) 0.6 Eos # (Auto) 0.2 Baso # (Auto) 0.0 Abs Immat Gran (auto) 0.02 Absolute Neuts (auto) 2.7 Absolute Nucleated RBC 0.000 Nucleated RBC % (auto) 0.0 Neutrophils % (Manual) Band Neutrophils % Lymphocytes % (Manual) Atypical Lymphs % (Man) Monocytes % (Manual) Abs Neuts (Manual) Lymphocytes # (Manual) Atyp Lymphs # (Manual) Monocytes # (Manual) Platelet Estimate Plt Morphology Comment RBC Morphology Polychromasia Macrocytosis Smear Tech's Comments PT INR APTT Sodium 138 Potassium 3.3 Chloride 106 Carbon Dioxide 22 Anion Gap 13 BUN 9 Creatinine 0.66 Estim Creat Clear Calc 138.0 Estimated GFR > 60 Random Glucose 74 Lactic Acid Calcium 7.3 L Total Bilirubin Direct Bilirubin AST ALT Alkaline Phosphatase Lactate Dehydrogenase 166 Total Protein 5.0 L Albumin Lipase Urine Color PATO Urine Appearance CLEAR Urine pH 6.5 Ur Specific [place] >= 1.030 H Urine Protein 1+ H Urine Glucose (UA) NEG Urine Ketones NEG Urine Blood NEG Urine Nitrite POS H Ur Leukocyte Esterase NEG Urine RBC 0 Urine WBC 1-4 Ur Squamous Epith Cells 2+ Urine Bacteria 2+ Urine Mucus 1+ Urine Test NEGATIVE Peritoneal Tot Protein Peritoneal Albumin Peritoneal LDH Peritoneal Glucose COVID-19 ([facility]) COVID-19 Clin Com Blood Type Antibody Screen Crossmatch 12/02/20 12/03/20 12/03/20 16:00 09:36 09:36 WBC 5.7 RBC 1.82 L Hgb 6.8 L* Hct 20.5 L* MCV 112.6 H MCH 37.4 H MCHC 33.2 RDW 14.8 Plt Count 89 L MPV 9.6 Immature Gran % (Auto) 0.2 Neut % (Auto) 47.0 Lymph % (Auto) 41.6 H [place] % (Auto) 8.6 Eos % (Auto) 1.7 Baso % (Auto) 0.9 Lymph # (Auto) 2.4 [place] # (Auto) 0.5 Eos # (Auto) 0.1 Baso # (Auto) 0.1 Abs Immat Gran (auto) 0.01 Absolute Neuts (auto) 2.7 Absolute Nucleated RBC 0.000 Nucleated RBC % (auto) 0.0 Neutrophils % (Manual) Band Neutrophils % Lymphocytes % (Manual) Atypical Lymphs % (Man) Monocytes % (Manual) Abs Neuts (Manual) Lymphocytes # (Manual) Atyp Lymphs # (Manual) Monocytes # (Manual) Platelet Estimate Plt Morphology Comment RBC Morphology Polychromasia Macrocytosis Smear Tech's Comments VERIFIED PT INR APTT Sodium 138 Potassium 3.6 Chloride 108 Carbon Dioxide 24 Anion Gap 10 L BUN 8 L Creatinine 0.69 Estim Creat Clear Calc 132.0 Estimated GFR > 60 Random Glucose 94 Lactic Acid Calcium 7.3 L Total Bilirubin Direct Bilirubin AST ALT Alkaline Phosphatase Lactate Dehydrogenase Total Protein Albumin Lipase Urine Color Urine Appearance Urine pH Ur Specific [place] Urine Protein Urine Glucose (UA) Urine Ketones Urine Blood Urine Nitrite Ur Leukocyte Esterase Urine RBC Urine WBC Ur Squamous Epith Cells Urine Bacteria Urine Mucus Urine Test Peritoneal Tot Protein 1.1 Peritoneal Albumin 0.4 Peritoneal LDH 30 Peritoneal Glucose 100 COVID-19 ([facility]) COVID-19 Clin Com Blood Type Antibody Screen Crossmatch 12/04/20 12/04/20 12/05/20 09:25 09:25 05:50 WBC 6.3 6.6 RBC 2.34 L D 2.21 L Hgb 8.5 L D 7.9 L Hct 25.2 L D 24.2 L MCV 107.7 H 109.5 H MCH 36.3 H 35.7 H MCHC 33.7 32.6 RDW 19.3 H 19.1 H Plt Count 102 L 96 L MPV 9.4 9.8 Immature Gran % (Auto) 0.2 0.3 Neut % (Auto) 54.7 55.8 Lymph % (Auto) 35.3 33.6 [place] % (Auto) 7.1 7.8 Eos % (Auto) 2.1 1.7 Baso % (Auto) 0.6 0.8 Lymph # (Auto) 2.2 2.2 [place] # (Auto) 0.5 0.5 Eos # (Auto) 0.1 0.1 Baso # (Auto) 0.0 0.1 Abs Immat Gran (auto) 0.01 0.02 Absolute Neuts (auto) 3.5 3.7 Absolute Nucleated RBC 0.000 0.000 Nucleated RBC % (auto) 0.0 0.0 Neutrophils % (Manual) Band Neutrophils % Lymphocytes % (Manual) Atypical Lymphs % (Man) Monocytes % (Manual) Abs Neuts (Manual) Lymphocytes # (Manual) Atyp Lymphs # (Manual) Monocytes # (Manual) Platelet Estimate Plt Morphology Comment RBC Morphology Polychromasia Macrocytosis Smear Tech's Comments VERIFIED VERIFIED PT INR APTT Sodium 138 Potassium 3.8 Chloride 107 Carbon Dioxide 25 Anion Gap 10 L BUN 9 Creatinine 0.71 Estim Creat Clear Calc 128.3 Estimated GFR > 60 Random Glucose 99 Lactic Acid Calcium 7.5 L Total Bilirubin Direct Bilirubin AST ALT Alkaline Phosphatase Lactate Dehydrogenase Total Protein Albumin Lipase Urine Color Urine Appearance Urine pH Ur Specific [place] Urine Protein Urine Glucose (UA) Urine Ketones Urine Blood Urine Nitrite Ur Leukocyte Esterase Urine RBC Urine WBC Ur Squamous Epith Cells Urine Bacteria Urine Mucus Urine Test Peritoneal Tot Protein Peritoneal Albumin Peritoneal LDH Peritoneal Glucose COVID-19 ([facility]) COVID-19 Clin Com Blood Type Antibody Screen Crossmatch 12/05/20 05:50 WBC RBC Hgb Hct MCV MCH MCHC RDW Plt Count MPV Immature Gran % (Auto) Neut % (Auto) Lymph % (Auto) [place] % (Auto) Eos % (Auto) Baso % (Auto) Lymph # (Auto) [place] # (Auto) Eos # (Auto) Baso # (Auto) Abs Immat Gran (auto) Absolute Neuts (auto) Absolute Nucleated RBC Nucleated RBC % (auto) Neutrophils % (Manual) Band Neutrophils % Lymphocytes % (Manual) Atypical Lymphs % (Man) Monocytes % (Manual) Abs Neuts (Manual) Lymphocytes # (Manual) Atyp Lymphs # (Manual) Monocytes # (Manual) Platelet Estimate Plt Morphology Comment RBC Morphology Polychromasia Macrocytosis Smear Tech's Comments PT INR APTT Sodium 140 Potassium 3.9 Chloride 107 Carbon Dioxide 25 Anion Gap 12 BUN 11 Creatinine 0.80 Estim Creat Clear Calc 113.8 Estimated GFR > 60 Random Glucose 127 H Lactic Acid Calcium 7.9 L Total Bilirubin Direct Bilirubin AST ALT Alkaline Phosphatase Lactate Dehydrogenase Total Protein Albumin Lipase Urine Color Urine Appearance Urine pH Ur Specific [place] Urine Protein Urine Glucose (UA) Urine Ketones Urine Blood Urine Nitrite Ur Leukocyte Esterase Urine RBC Urine WBC Ur Squamous Epith Cells Urine Bacteria Urine Mucus Urine Test Peritoneal Tot Protein Peritoneal Albumin Peritoneal LDH Peritoneal Glucose COVID-19 ([facility]) COVID-19 Clin Com Blood Type Antibody Screen Crossmatch Preliminary micro results at discharge 12/02/20 16:00 Anaerobic Culture - Preliminary Ascites Fluid No growth to date. 12/01/20 18:42 Blood Culture - Preliminary Blood - Venous No growth after 48 hours. 12/01/20 18:45 Blood Culture - Preliminary Blood - Venous No growth after 48 hours. Discharge Plan Discharge Patient Disposition: Left Against Medical Advice Referrals: Wilder Hernandez MD [Primary Care Provider] - 1 Week (Please call and schedule a follow up appointment) Discharge Medications: No Action ferrous sulfate 325 mg (65 mg iron) tablet 325 mg PO BID 90 Days Qty: 180 RF: 1 furosemide 40 mg tablet 80 mg PO DAILY Qty: 360 RF: 0 mirtazapine 15 mg tablet,disintegrating 15 mg PO BEDTIME 90 Days Qty: 90 RF: 1 pantoprazole 40 mg tablet,delayed release (DR/EC) 40 mg PO BID 90 Days Qty: 180 RF: 1 sucralfate 1 gram tablet 1 g PO QIDWMHS 90 Days Qty: 360 RF: 1 trazodone 50 mg tablet 50 mg PO BEDTIME RF: 0 ondansetron HCl [Zofran] 4 mg tablet 4 mg PO Q8H PRN (Reason: nausea and vomiting) 30 Days Qty: 30 RF: 3 spironolactone 50 mg tablet 100 mg PO DAILY 90 Days Qty: 180 RF: 2 Discharge Orders: Discharge Order (Routine); Ordered 12/28/20 Ordered By: Agusto Ballard Care Plan Goals: Recommend continued follow-up with primary care physician and Gastroenterology and compliance with home medication Health Concerns: Alcoholic cirrhosis recurrent ascites Plan of Treatment: Follow-up with PCP Discharge Date/Time: 12/05/20 12:30
[2020-12-06 17:29] LABS: Vitamin B12 1134 pg/mL (200-900)
== END 2020-12-05 12:30 | disposition left against medical advice (07) | DRG 433 ==
LOC: HO.ED 22:23 → HO.IMC 12-02 01:29 → HO.EDOVER 12-02 10:33 → HO.IMC 12-02 10:33
PROVIDERS: Internal Medicine; Physician Assistant; Radiology Diagnostic Radiology; Admitting Provider Internal Medicine; Emergency Provider Emergency Medicine; PCP Family Medicine; Visit Provider Hospitalist
PROC: 0W9G3ZZ Drainage of Peritoneal Cavity, Percutaneous Approach (ICD-10-PCS; principal; 2020-12-02 15:00)
DX: K70.31 Alcoholic cirrhosis of liver with ascites (principal); E46 Unspecified protein-calorie malnutrition; E87.6 Hypokalemia; F10.10 Alcohol abuse, uncomplicated; D64.9 Anemia, unspecified; Z99.89 Dependence on other enabling machines and devices; Z68.30 Body mass index [BMI] 30.0-30.9, adult; Z20.822 Contact with and (suspected) exposure to COVID-19; Z88.5 Allergy status to narcotic agent; Z79.899 Other long term (current) drug therapy
CPT/HCPCS: 36415; 49083; 80048; 80053; 80076; 81001; 81003; 81025; 82042; 82607; 82746; 82945; 83605; 83615; 83690; 84155; 84157; 85007; 85025; 85027; 85610; 85730; 86850; 86900; 86923; 87040; 87071; 87073; 87086; 87205; 87635; 96361; 96372; 96374; 99219; 99285; J1170; J1200; J1885; J1940; J2405; P9016; P9047

== ENCOUNTER 2020-12-17 13:58 | Day surgery (SDC) | payer MEDICARE, MEDICAID, SELFPAY ==
--- NOTE | ~2020-12-17 | US_ITS ---
EXAMINATION: ULTRASOUND-GUIDED PARACENTESIS CLINICAL INFORMATION: Ascites COMPARISON: Previous exams most recent 12/02/2020 TECHNIQUE: Procedure and risks and benefits including bleeding, infection and low blood pressure were discussed with the patient and informed consent was obtained. The right lower quadrant was prepped and draped in the usual sterile fashion. The skin and soft tissues were anesthetized with 1% lidocaine plain. Using ultrasound guidance and a 5 Czech rapid centesis catheter, access to the ascitic fluid was obtained. 2.1 L of clear yellow fluid was removed. The catheter backed out during the procedure. The patient did not want the catheter to be reinserted and the procedure was stopped. No diagnostic specimen was sent. FINDINGS: There is a large amount of ascites. US/US paracentesis abd w/image IMPRESSION: Ultrasound-guided paracentesis.
[2020-12-17 14:13] VITALS: BMI 30.2
[2020-12-17 14:36] LABS: MANUAL DIFF FLAG NO
[2020-12-17 14:39] LABS: Basophils Absolute Auto 0.1 X10*3/uL (0.0-0.2); Basophils Percent Auto 0.8 % (0-2); Eosinophils Absolute Auto 0.2 X10*3/uL (0.0-0.4); Eosinophils Percent Auto 3.3 % (0-4); Hematocrit 26.1 % (37-47); Hemoglobin 8.6 g/dl (12.0-16.0); Imm Gran Abs Auto 0.02 X10*3/uL (0.00-0.03); Imm Gran Pct Auto 0.3 % (0.0-0.4); Lymphocytes Absolute Auto 1.9 X10*3/uL (1.2-4.9); Lymphocytes Percent Auto 31.6 % (20-40); Mean Corpuscular Hemoglobin 36.8 pg (27.0-33.0); Mean Platelet Volume 9.5 fL (9.4-12.3); Monocytes Absolute Auto 0.5 X10*3/uL (0.1-1.2); Monocytes Percent Auto 8.9 % (2-11); Neutrophils Absolute Auto 3.4 X10*3/uL (2.0-8.3); Neutrophils Percent Auto 55.1 % (45-73); Platelet Count 113 X10*3/uL (160-400); Red Blood Count 2.34 X10*6/uL (4.20-5.50); Red Cell Distribution Width 15.9 % (11.0-16.0); White Blood Count 6.1 X10*3/uL (4.8-10.8)
[2020-12-17 14:40] LABS: Mean Corpuscular Volume 111.5 fL (80-98)
[2020-12-17 14:44] LABS: INTERNATIONAL NORM RATIO 1.7 (0.9-1.1); Prothrombin Time 20.5 SEC (10.8-13.0)
[2020-12-17 14:47] LABS: Partial Thromboplastin Time 45.3 SEC (24.1-38.0)
--- NOTE | 2020-12-17 15:18 | HO.RADPN ---
RADIOLOGY Narrative Narrative: Right lower quadrant paracentesis performed using 5 Fr rapidcentesis catheter. 2.2 L clear fluid removed. No diagnostic specimen sent.
[2020-12-17 15:40] VITALS: BP 105/65; PULSE 85; RESP 16; O2SAT 100
[2020-12-17 15:55] VITALS: BP 105/69; PULSE 81; RESP 18; O2SAT 100
[2020-12-21 05:08] LABS: Glucose, Whole Blood 72 mg/dL (60-115)
== END 2020-12-17 16:10 | disposition home or self-care (01) ==
PROVIDERS: Radiology Diagnostic Radiology; PCP Family Medicine; Visit Provider Radiology Diagnostic Radiology
DX: R18.8 Other ascites (principal)
CPT/HCPCS: 36415; 49083; 82947; 85025; 85610; 85730

== ENCOUNTER 2021-01-26 15:43 | Outpatient (REF) | payer MEDICARE, MEDICAID, SELFPAY ==
[2021-01-26 16:20] LABS: MANUAL DIFF FLAG NO
[2021-01-26 16:28] LABS: Basophils Percent Auto 0.7 % (0-2); Eosinophils Absolute Auto 0.1 X10*3/uL (0.0-0.4); Eosinophils Percent Auto 2.1 % (0-4); Hematocrit 25.6 % (37-47); Hemoglobin 8.3 g/dl (12.0-16.0); Imm Gran Abs Auto 0.02 X10*3/uL (0.00-0.03); Imm Gran Pct Auto 0.3 % (0.0-0.4); Lymphocytes Absolute Auto 1.8 X10*3/uL (1.2-4.9); Lymphocytes Percent Auto 30.1 % (20-40); Mean Corpuscular HGB Conc 32.4 g/dl (31.0-35.0); Mean Corpuscular Hemoglobin 36.6 pg (27.0-33.0); Mean Platelet Volume 9.6 fL (9.4-12.3); Monocytes Absolute Auto 0.5 X10*3/uL (0.1-1.2); Monocytes Percent Auto 8.8 % (2-11); Neutrophils Absolute Auto 3.6 X10*3/uL (2.0-8.3); Platelet Count 109 X10*3/uL (160-400); Red Blood Count 2.27 X10*6/uL (4.20-5.50); Red Cell Distribution Width 14.6 % (11.0-16.0); White Blood Count 6.1 X10*3/uL (4.8-10.8)
[2021-01-26 16:30] LABS: Mean Corpuscular Volume 112.8 fL (80-98)
[2021-01-26 16:59] LABS: Alanine Aminotransferase 7 U/L (0-31); Albumin Level 2.7 g/dL (3.5-5.0); Alkaline Phosphatase 104 U/L (39-117); Anion Gap 12 (12-20); Aspartate Amino Transferase 27 U/L (5-31); Bilirubin Total 1.9 mg/dL (0.0-1.0); Blood Urea Nitrogen 13 mg/dL (9-16); Calcium 7.9 mg/dL (8.4-10.2); Carbon Dioxide 26 mmol/L (22-29); Chloride 104 mmol/L (96-108); Estimated Glomerular Filt Rate > 60; Glucose Random 90 mg/dL (60-115); Iron 49 mcg/dL (30-160); Percent Iron Saturation 27 % (15-50); Potassium 3.2 mmol/L (3.3-5.1); Sodium 139 mmol/L (135-145); Total Iron Binding Capacity 179 mcg/dL (228-428); Unsaturated Iron Binding 130 ug/dL
[2021-01-26 17:19] LABS: Ferritin 127 ng/mL (10-122)
== END 2021-01-26 15:44 | disposition home or self-care (01) ==
LOC: HO.LAB 15:43
PROVIDERS: PCP Hospitalist; Visit Provider Hospitalist
DX: D64.9 Anemia, unspecified (principal); K70.31 Alcoholic cirrhosis of liver with ascites
CPT/HCPCS: 36415; 80053; 82728; 83540; 85025

== ENCOUNTER 2021-06-16 21:06 | Emergency (ER) | payer MEDICARE, MEDICAID, SELFPAY ==
--- NOTE | ~2021-06-16 | CT_ITS ---
EXAMINATION: CT ABDOMEN AND PELVIS WITH CONTRAST CLINICAL INFORMATION: Periumbilical pain. Gastric bypass. Rule out hernia. COMPARISON: 10/10/2020 TECHNIQUE: Multidetector volumetric images were obtained from the superior aspect of the liver through the pubic symphysis following administration 85 mL of Omnipaque 350 intravenous contrast. Sagittal and coronal reformatted images were obtained on the technologist's workstation. Oral contrast: No This CT examination was performed using dose optimization techniques as appropriate, variously including the following: *Automated exposure control *Adjustment of mA and/or kV according to patient size (this includes techniques or standardized protocols for targeted exams where dose is matched to indication/reason for exam; i.e. extremities or head) *Use of iterative reconstruction technique DLP: 341 mGy-cm FINDINGS: LUNG BASES: The visualized lung bases are unremarkable. LIVER, GALLBLADDER, AND BILIARY TREE: The liver is normal in size, shape, and attenuation. No focal hepatic lesion or biliary ductal dilatation is present. Cholecystectomy. PANCREAS: Unremarkable. SPLEEN: The spleen is enlarged, measuring no focal splenic lesion. ADRENAL GLANDS: Unremarkable. KIDNEYS AND URETERS: The kidneys are normal in size, shape, and attenuation. No hydronephrosis, hydroureter, or calculi seen. No perinephric stranding. BLADDER: Unremarkable. GASTROINTESTINAL TRACT: Status post Ja-en-Y gastric bypass. Normal caliber small bowel. No obstruction. No colonic wall thickening or inflammatory change. No free air. Small volume of ascites, decreased from prior. ABDOMINAL WALL: No significant hernia is appreciated. LYMPH NODES: No retroperitoneal lymphadenopathy. There is the appearance of a ana mesentery . Somewhat prominent mesenteric lymph nodes are seen in this area. Prominent portacaval lymph node. VASCULAR: Unremarkable. PELVIC VISCERA: The uterus and adnexa are unremarkable. OSSEOUS STRUCTURES: No acute or suspicious osseous abnormality. CT/CT abdomen pelvis w con IMPRESSION: Small volume ascites, decreased from prior. No abdominal wall hernia. Status post Ja-en-Y gastric bypass. No obstruction. Splenomegaly. Prominent central mesenteric and portacaval lymph nodes again noted.
[2021-06-16 21:11] VITALS: BP 102/53; PULSE 65; RESP 16; TEMP 37.2; O2SAT 64; BMI 23.7
[2021-06-16 22:10] LABS: Glucose Urine UA NEG (NEG); Leukocyte Esterase Urine NEG (NEG); Nitrite Urine NEG (NEG); UACC Culture Trigger NO; Urine Blood TRACE (NEG); Urine Ketones 5 MG/DL (NEG); Urine Protein NEG (NEG-TRACE)
[2021-06-16 22:18] LABS: Appearance Urine CLEAR; Color Urine YELLOW
[2021-06-16 22:19] LABS: UPreg QC Valid YES; Urine Pregnancy NEGATIVE (NEGATIVE)
[2021-06-16 22:26] LABS: Mucus Urine TRACE /LPF; Squamous Epithelial Cell Urine TRACE /LPF; WBC Urine 0-2 /HPF (0-4)
--- NOTE | 2021-06-16 22:30 | PC.NURSE ---
IV established, labs obtained. Awaiting primary MD potter.
[2021-06-16 22:41] LABS: MANUAL DIFF FLAG NO
[2021-06-16 22:43] LABS: Basophils Percent Auto 0.7 % (0-2); Eosinophils Absolute Auto 0.1 X10*3/uL (0.0-0.4); Eosinophils Percent Auto 2.1 % (0-4); Hematocrit 34.1 % (37-47); Hemoglobin 11.3 g/dl (12.0-16.0); Imm Gran Abs Auto 0.02 X10*3/uL (0.00-0.03); Imm Gran Pct Auto 0.4 % (0.0-0.4); Lymphocytes Absolute Auto 2.2 X10*3/uL (1.2-4.9); Lymphocytes Percent Auto 38.1 % (20-40); Mean Corpuscular HGB Conc 33.1 g/dl (31.0-35.0); Mean Corpuscular Hemoglobin 34.8 pg (27.0-33.0); Mean Corpuscular Volume 104.9 fL (80-98); Mean Platelet Volume 9.8 fL (9.4-12.3); Monocytes Absolute Auto 0.4 X10*3/uL (0.1-1.2); Monocytes Percent Auto 7.1 % (2-11); Neutrophils Absolute Auto 2.9 X10*3/uL (2.0-8.3); Neutrophils Percent Auto 51.6 % (45-73); Platelet Count 90 X10*3/uL (160-400); Red Blood Count 3.25 X10*6/uL (4.20-5.50); Red Cell Distribution Width 14.5 % (11.0-16.0); White Blood Count 5.7 X10*3/uL (4.8-10.8)
[2021-06-16 22:50] LABS: INTERNATIONAL NORM RATIO 1.2 (0.9-1.1); Prothrombin Time 13.7 SEC (9.9-13.0)
[2021-06-16 23:07] LABS: Alanine Aminotransferase 17 U/L (0-31); Albumin Level 3.5 g/dL (3.5-5.0); Alkaline Phosphatase 176 U/L (39-117); Anion Gap 12 (12-20); Aspartate Amino Transferase 39 U/L (5-31); Bilirubin Direct 0.5 mg/dL (0.0-0.5); Bilirubin Total 0.9 mg/dL (0.0-1.0); Blood Urea Nitrogen 13 mg/dL (9-16); Calcium 8.8 mg/dL (8.4-10.2); Carbon Dioxide 26 mmol/L (22-29); Chloride 107 mmol/L (96-108); Creatinine Clr Calc Pharmacy 61.1; Estimated Glomerular Filt Rate 50; Glucose Random 79 mg/dL (60-115); Lipase 36 U/L (8-78); Sodium 141 mmol/L (135-145); Total Protein 6.9 g/dL (6.5-8.0)
--- NOTE | 2021-06-17 00:02 | PC.NURSE ---
Covid swab obtained and sent.
--- NOTE | 2021-06-17 00:55 | ED_ITS ---
HPI - Abdominal Pain General Chief Complaint: Abdominal Pain Stated Complaint: abd pain Time Seen by Provider: 06/17/21 00:39 Source: patient Mode of arrival: ambulatory Limitations: no limitations History of Present Illness HPI narrative: 30-year-old female who presents emergency department for evaluation of abdominal pain. The patient states for the past 5 days she has noticed pain around her umbilical area. She describes the pain as a ball in the area of her umbilicus. The pain is been constant and was 7/10 when she 1st got to the emergency department and was 10/10 at the time of evaluation. The patient has had nausea and multiple episodes of vomiting. She states she has been able to hold down some food and fluid. She states that she was experiencing fever and chills. Past surgical history significant for gastric bypass surgery 7 years prior at [facility]. She also has a history of cholecystectomy. Related Data Home Medications Medication Instructions Recorded Confirmed trazodone 50 mg tablet 50 mg PO BEDTIME 12/27/20 12/27/20 Previous Rx's Medication Instructions Recorded mirtazapine 15 mg disintegrating 15 mg PO BEDTIME 90 Days #90 tab 12/27/20 tablet sucralfate 1 gram tablet 1 g PO QIDWMHS 90 Days #360 tab 12/27/20 furosemide 40 mg tablet 80 mg PO DAILY #360 tab 02/14/21 hepatitis A virus vaccine (PF) 50 1 ml IM ONCE #1 ml 03/31/21 unit/mL intramuscular syringe (Vaqta (PF)) docusate sodium 100 mg capsule 100 mg PO DAILY 30 Days #30 cap 05/25/21 (Colace) ferrous sulfate 325 mg (65 mg 325 mg PO BID 90 Days #180 tab 05/25/21 iron) tablet ondansetron HCl 4 mg tablet 4 mg PO Q8H PRN 30 Days #30 tab 05/25/21 (Zofran) pantoprazole 40 mg tablet,delayed 40 mg PO BID 90 Days #180 tab 05/25/21 release spironolactone 50 mg tablet 100 mg PO DAILY 90 Days #180 tab 05/25/21 clotrimazole-betamethasone 1 1 appl TOPICAL BID 14 Days #60 g 05/30/21 %-0.05 % topical cream doxycycline hyclate 100 mg tablet 100 mg PO BID 7 Days #14 tab 05/30/21 oxycodone 5 mg tablet 5 mg PO Q8H PRN 30 Days #90 tab 06/14/21 Allergies Allergy/AdvReac Type Severity Reaction Status Date / Time acetaminophen [From Vicodin] Allergy Intermediate hives Verified 05/30/21 13:20 hydrocodone [From Vicodin] Allergy Intermediate hives Verified 05/30/21 13:20 tramadol Allergy Intermediate hives Verified 05/30/21 13:20 banana [BANANA] AdvReac Severe DIFFICULTY Verified 05/30/21 13:20 BREATHING seafood AdvReac Hives Verified 06/16/21 21:14 Review of Systems Review of Systems Yes all other systems are reviewed and are negative Physical Exam Vital Signs: Vital Signs: Last Vital Signs Temp 99.0 F 06/16/21 21:11 Pulse 65 06/16/21 21:11 Resp 18 06/17/21 01:33 BP 102/53 L 06/16/21 21:11 Pulse Ox 64 L 06/16/21 21:11 Body Mass Index 23.7 Const: General: cooperative and no acute distress Orientation/consciousness: oriented to person and oriented to place Limitations: no limitations HENMT: Head: Yes normal to inspection, Yes normocephalic and Yes atraumatic Ears: external ears normal General nose exam: Normal external nose present Face and sinus: Yes normal facial exam Mouth: Normal oral and palatal mucosa present Throat: Yes posterior oropharynx normal Eyes: General: appearance normal, both eyes and all related structures Pupi ls: Equal, round and reactive pupils present Neck: Neck: Yes normal visual inspection, Yes no lymphadenopathy, Yes trachea midline and Yes supple Chest: Chest palpation & inspection: normal inspection of the chest and normal palpation of entire chest wall Resp: Effort & Inspection: normal respiratory effort and able to speak in complete sentences Auscultation: clear to auscultation bilaterally Cardio: Rate: regular rate Rhythm: regular rhythm Heart sounds: S1 normal heart sound present, S2 normal heart sound present and no murmurs GI: Inspection: Yes normal to inspection Palpation (GI): Soft to palpation, Tenderness to palpation present (GI) periumbilically (Moderate to severe) and no guarding Auscultation: normal bowel sounds : General: Yes no CVA tenderness Back/Spine/Pelvis: Back: no CVA tenderness Skin: General skin exam: no rashes or lesions noted Neuro: General: oriented to person and oriented to place Cranial nerves: Yes CN's II-XII intact bilaterally and Yes Equal, round and reactive pupils present Cognition (Neuro): normal cognition Motor exam (neuro): 5/5 motor strength present throughout Extrem: General: Yes normal to inspection Psych: Appearance: grossly normal Speech and movement: Normal speech and movement present Affect: normal affect Attitude: cooperative Thought process: Normal thought process present Thought content: Normal thought content present Course Course Course Narrative: 30-year-old female who presents emergency department for evaluation of 5 days of periumbilical pain the patient believes that she can feel a ball in the area her umbilicus. The patient has had nausea and vomiting with subjective fever and chills. On my examination the patient was very tender in the umbilical area, I was not able to feel a mass however patient had significant voluntary guarding. The patient does have a history of a cholecystectomy and a gastric bypass surgery 7 years prior done at [facility]. Concerned the patient may have a hernia as the cause of her symptoms therefore I ordered a CT scan of the patient's abdomen pelvis. Patient's laboratory evaluation did reveal mild anemia with an H&H 11.3 and 34.1. This is chronic. [place] [address], again this is chronic. Patient has an elevated AST and alk phos of 39 and 176. Lipase was normal. Patient was given normal saline IV x1 L, morphine 4 mg IV for pain and Zofran 4 mg IV for her nausea and vomiting. 0219: Patient's CT scan of the abdomen pelvis did not reveal a clear etiology for the patient's pain. There was no hernia noted. The patient did get some improvement with her 1st dose of morphine. She was ordered to get a 2nd dose of morphine 4 mg IV. The patient will be discharged home.The patient was given verbal and printed instructions prior to discharge. The patient was advised to follow-up with her PCP in 2 days and to return to the emergency department if her symptoms get worse or if she develops any new symptoms that are concerning to her. MDM - Abdominal Pain Lab Data Result diagrams: 06/16/21 21:43 06/16/21 21:43 Labs: Lab Results 06/16/21 06/16/21 06/16/21 Range/Units 21:43 21:43 21:44 WBC 5.7 (4.8-10.8) X10*3/uL RBC 3.25 L D (4.20-5.50) X10*6/uL Hgb 11.3 L D (12.0-16.0) g/dl Hct 34.1 L D (37-47) % MCV 104.9 H (80-98) fL MCH 34.8 H (27.0-33.0) pg MCHC 33.1 (31.0-35.0) g/dl RDW 14.5 (11.0-16.0) % Plt Count 90 L (160-400) X10*3/uL MPV 9.8 (9.4-12.3) fL Immature Gran % (Auto) 0.4 (0.0-0.4) % Neut % (Auto) 51.6 (45-73) % Lymph % (Auto) 38.1 (20-40) % [place] % (Auto) 7.1 (2-11) % Eos % (Auto) 2.1 (0-4) % Baso % (Auto) 0.7 (0-2) % Lymph # (Auto) 2.2 (1.2-4.9) X10*3/uL [place] # (Auto) 0.4 (0.1-1.2) X10*3/uL Eos # (Auto) 0.1 (0.0-0.4) X10*3/uL Baso # (Auto) 0.0 (0.0-0.2) X10*3/uL Abs Immat Gran (auto) 0.02 (0.00-0.03) X10*3/uL Absolute Neuts (auto) 2.9 (2.0-8.3) X10*3/uL Absolute Nucleated RBC 0.000 (0.0-0.012) X10*3/uL Nucleated RBC % (auto) 0.0 (0.0-0.2) /100WBC PT (9.9-13.0) SEC INR (0.9-1.1) Sodium 141 (135-145) mmol/L Potassium 4.0 D (3.3-5.1) mmol/L Chloride 107 (96-108) mmol/L Carbon Dioxide 26 (22-29) mmol/L Anion Gap 12 (12-20) BUN 13 (9-16) mg/dL Creatinine 1.26 (0.5-1.4) mg/dL Estim Creat Clear Calc 61.1 Estimated GFR 50 Random Glucose 79 (60-115) mg/dL Calcium 8.8 D (8.4-10.2) mg/dL Total Bilirubin 0.9 (0.0-1.0) mg/dL Direct Bilirubin 0.5 (0.0-0.5) mg/dL AST 39 H D (5-31) U/L ALT 17 (0-31) U/L Alkaline Phosphatase 176 H D (39-117) U/L Total Protein 6.9 (6.5-8.0) g/dL Albumin 3.5 D (3.5-5.0) g/dL Lipase 36 (8-78) U/L Urine Color YELLOW Urine Appearance CLEAR Urine pH 6.0 (5.0-8.0) Ur Specific [place] 1.020 (1.005-1.025) Urine Protein NEG (NEG-TRACE) MG/DL Urine Glucose (UA) NEG (NEG) MG/DL Urine Ketones 5 (NEG) MG/DL Urine Blood TRACE (NEG) Urine Nitrite NEG (NEG) Ur Leukocyte Esterase NEG (NEG) Urine RBC 1-4 (0) /HPF Urine WBC 0-2 (0-4) /HPF Ur Squamous Epith Cells TRACE /LPF Urine Bacteria NONE /LPF Urine Mucus TRACE /LPF Urine Test (NEGATIVE) 06/16/21 06/16/21 Range/Units 21:44 22:31 WBC (4.8-10.8) X10*3/uL RBC (4.20-5.50) X10*6/uL Hgb (12.0-16.0) g/dl Hct (37-47) % MCV (80-98) fL MCH (27.0-33.0) pg MCHC (31.0-35.0) g/dl RDW (11.0-16.0) % Plt Count (160-400) X10*3/uL MPV (9.4-12.3) fL Immature Gran % (Auto) (0.0-0.4) % Neut % (Auto) (45-73) % Lymph % (Auto) (20-40) % [place] % (Auto) (2-11) % Eos % (Auto) (0-4) % Baso % (Auto) (0-2) % Lymph # (Auto) (1.2-4.9) X10*3/uL [place] # (Auto) (0.1-1.2) X10*3/uL Eos # (Auto) (0.0-0.4) X10*3/uL Baso # (Auto) (0.0-0.2) X10*3/uL Abs Immat Gran (auto) (0.00-0.03) X10*3/uL Absolute Neuts (auto) (2.0-8.3) X10*3/uL Absolute Nucleated RBC (0.0-0.012) X10*3/uL Nucleated RBC % (auto) (0.0-0.2) /100WBC PT 13.7 H (9.9-13.0) SEC INR 1.2 H (0.9-1.1) Sodium (135-145) mmol/L Potassium (3.3-5.1) mmol/L Chloride (96-108) mmol/L Carbon Dioxide (22-29) mmol/L Anion Gap (12-20) BUN (9-16) mg/dL Creatinine (0.5-1.4) mg/dL Estim Creat Clear Calc Estimated GFR Random Glucose (60-115) mg/dL Calcium (8.4-10.2) mg/dL Total Bilirubin (0.0-1.0) mg/dL Direct Bilirubin (0.0-0.5) mg/dL AST (5-31) U/L ALT (0-31) U/L Alkaline Phosphatase (39-117) U/L Total Protein (6.5-8.0) g/dL Albumin (3.5-5.0) g/dL Lipase (8-78) U/L Urine Color Urine Appearance Urine pH (5.0-8.0) Ur Specific [place] (1.005-1.025) Urine Protein (NEG-TRACE) MG/DL Urine Glucose (UA) (NEG) MG/DL Urine Ketones (NEG) MG/DL Urine Blood (NEG) Urine Nitrite (NEG) Ur Leukocyte Esterase (NEG) Urine RBC (0) /HPF Urine WBC (0-4) /HPF Ur Squamous Epith Cells /LPF Urine Bacteria /LPF Urine Mucus /LPF Urine Test NEGATIVE (NEGATIVE) Discharge Plan Discharge Clinical Impression: Abdominal pain Qualifiers: Abdominal location: periumbilical Qualified Code(s): R10.33 - Periumbilical pain Patient Disposition: Home, Self-Care Instructions: Abdominal Pain (ED) Additional Instructions: Your laboratory evaluation is unchanged from your baseline and is consistent with her cirrhosis. The CT scan of your abdomen pelvis with IV contrast did not reveal a clear cause for the pain around the belly button. There was no hernia noted on the CT scan which is reassuring. Follow-up with your doctor in 2 days. Please return to the emergency department if your symptoms get worse or if you develop any symptoms that are concerning to you. Prescriptions: No Action furosemide 40 mg tablet 80 mg PO DAILY Qty: 360 RF: 3 docusate sodium [Colace] 100 mg capsule 100 mg PO DAILY 30 Days Qty: 30 RF: 1 ferrous sulfate 325 mg (65 mg iron) tablet 325 mg PO BID 90 Days Qty: 180 RF: 1 ondansetron HCl [Zofran] 4 mg tablet 4 mg PO Q8H PRN (Reason: nausea and vomiting) 30 Days Qty: 30 RF: 3 pantoprazole 40 mg tablet,delayed release (DR/EC) 40 mg PO BID 90 Days Qty: 180 RF: 1 spironolactone 50 mg tablet 100 mg PO DAILY 90 Days Qty: 180 RF: 2 oxycodone 5 mg tablet 5 mg PO Q8H PRN (Reason: pain) 30 Days Qty: 90 RF: 0 mirtazapine 15 mg tablet,disintegrating 15 mg PO BEDTIME 90 Days Qty: 90 RF: 1 sucralfate 1 gram tablet 1 g PO QIDWMHS 90 Days Qty: 360 RF: 1 trazodone 50 mg tablet 50 mg PO BEDTIME RF: 0 Vaqta (PF) 50 unit/mL syringe 1 ml IM ONCE Qty: 1 RF: 0 clotrimazole-betamethasone 1-0.05 % cream 1 appl topical BID 14 Days Qty: 60 RF: 0 doxycycline hyclate 100 mg tablet 100 mg PO BID 7 Days Qty: 14 RF: 0 PMFSH Past Medical History PMF Narrative: Surgical history: Patient smokes approximately 10 cigarettes per day times 13 years. She does not drink alcohol but she does have a history of alcohol use disorder with alcoholic hepatitis and cirrhosis. The patient denies drug use. Medical History Acute GI bleeding Acute metabolic encephalopathy Alcohol withdrawal 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 Asthma CHF (congestive heart failure) Chiari malformation CVA (cerebral vascular accident) Depression Depression with anxiety GI bleed Hemorrhoids Hepatitis C Hypokalemia Liver failure NSVT (nonsustained ventricular tachycardia) Orthostatic hypotension Peptic ulcer disease Seizures Surgical History Gastric bypass status for obesity Hx of cholecystectomy Family History Family History Father Liver failure Kidney failure History of heart attack Mother Diabetes HTN (hypertension) Social History Social History Household Members: Family Housing: House Do you presently have visiting nurse or other home services: No Unable to assess alcohol history related to: Refusing to respond Alcohol intake: former Cigarette Packs Per Day: 0.5 Cigarettes Per Day: 10.0 Years Smoked: 12 Second Hand Smoke Exposure: Yes Advance Directives: No Advance Directives Information Provided: No Patient : No (unknown) service: No Current occupational status: disabled
[2021-06-17] MEDS: iohexoL 350 MG/ML 100 ML INFUS..BTL 85 ML IV (01:22)
[2021-06-17 01:33] VITALS: RESP 18
[2021-06-17] MEDS: 0.9 % Sodium Chloride 1,000 ML 999 ML IV (01:33)
[2021-06-17] MEDS: Morphine Sulfate 4 MG/ML CARTRIDGE IVPUSH ×2 (01:33→02:32)
[2021-06-17] MEDS: ondansetron HCL 4 MG/2 ML VIAL IVPUSH (01:33)
[2021-06-17 02:31] VITALS: BP 104/66; PULSE 71; RESP 16; O2SAT 98
== END 2021-06-17 02:40 | disposition home or self-care (01) ==
PROVIDERS: Emergency Provider Emergency Medicine Emergency Medical Services; PCP Family Medicine
DX: R10.33 Periumbilical pain (principal); R50.9 Fever, unspecified; D69.6 Thrombocytopenia, unspecified; D64.9 Anemia, unspecified; K70.30 Alcoholic cirrhosis of liver without ascites; K70.10 Alcoholic hepatitis without ascites; F10.10 Alcohol abuse, uncomplicated; Z86.73 Personal history of transient ischemic attack (TIA), and cerebral infarction without residual deficits; Z90.49 Acquired absence of other specified parts of digestive tract; Z98.84 Bariatric surgery status; Z79.899 Other long term (current) drug therapy
CPT/HCPCS: 36415; 74177; 80053; 81001; 81025; 82248; 83690; 85025; 85610; 96361; 96374; 96375; 99284; J2270; J2405; Q9967

== ENCOUNTER 2021-10-04 16:16 | Outpatient (REF) | payer MEDICARE, MEDICAID, SELFPAY ==
--- NOTE | ~2021-10-04 | XR_ITS ---
EXAMINATION: XR ABDOMEN COMPLETE CLINICAL INDICATION: Abdominal pain COMPARISON: Previous CT of the abdomen and pelvis June 2021 TECHNIQUE: 2 views of the abdomen. FINDINGS: There are no dilated loops of bowel or air-fluid levels to suggest obstruction. There is no evidence of free air. No calcifications are seen. Bony structures are unremarkable. XR/XR abdomen min 2V IMPRESSION: Unremarkable examination.
== END 2021-10-04 16:17 | disposition home or self-care (01) ==
LOC: HO.XRAY 16:16
PROVIDERS: PCP Hospitalist; Visit Provider Hospitalist
DX: R10.9 Unspecified abdominal pain (principal)
CPT/HCPCS: 74019

== ENCOUNTER 2021-10-31 15:32 | Outpatient (REF) | payer MEDICARE, MEDICAID, SELFPAY | END 2021-10-31 15:33 | disposition home or self-care (01) | LOC: HO.LAB 15:32 | PROVIDERS: Visit Provider Hospitalist | DX: N39.0 Urinary tract infection, site not specified (principal) | CPT/HCPCS: 87086 ==

== ENCOUNTER 2021-11-30 21:02 | Emergency (ER) | payer MEDICARE, MEDICAID, SELFPAY ==
--- NOTE | 2021-11-30 | ECG_ITS ---
Test Reason : CHEST PAIN Blood Pressure : / mmHG Vent. Rate : 096 BPM Atrial Rate : 096 BPM P-R Int : 134 ms QRS Dur : 078 ms QT Int : 362 ms P-R-T Axes : 017 046 033 degrees QTc Int : 457 ms Normal sinus rhythm Normal ECG When compared with ECG of 05-OCT-2020 08:38, No significant change was found Referred By: Generic ED Physician Electronically Signed By:ESPERANZA ASKEW MD
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
--- NOTE | ~2021-11-30 | XR_ITS ---
EXAMINATION: XR KNEE, RIGHT CLINICAL INFORMATION: Pain. COMPARISON: No similar priors. TECHNIQUE: Four views of the right knee. FINDINGS: No acute fractures or malalignment. No significant degenerative changes. Small joint effusion. XR/XR knee RT 4V IMPRESSION: No acute fractures or malalignment. Small joint effusion.
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
[2021-11-30 21:55] VITALS: BP 114/78; PULSE 92; RESP 16; TEMP 36.6; O2SAT 98; BMI 25.8
[2021-11-30 22:08] LABS: MANUAL DIFF FLAG NO
[2021-11-30 22:13] LABS: Basophils Absolute Auto 0.1 X10*3/uL (0.0-0.2); Basophils Percent Auto 0.9 % (0-2); Eosinophils Absolute Auto 0.1 X10*3/uL (0.0-0.4); Eosinophils Percent Auto 1.9 % (0-4); Hemoglobin 14.4 g/dl (12.0-16.0); Imm Gran Abs Auto 0.05 X10*3/uL (0.00-0.03); Imm Gran Pct Auto 0.7 % (0.0-0.4); Lymphocytes Absolute Auto 2.1 X10*3/uL (1.2-4.9); Lymphocytes Percent Auto 30.8 % (20-40); Mean Corpuscular Hemoglobin 34.2 pg (27.0-33.0); Mean Platelet Volume 9.2 fL (9.4-12.3); Monocytes Absolute Auto 0.3 X10*3/uL (0.1-1.2); Monocytes Percent Auto 4.6 % (2-11); Neutrophils Absolute Auto 4.2 x10*3/uL (2.0-8.3); Neutrophils Percent Auto 61.1 % (45-73); Platelet Count 158 X10*3/uL (160-400); Red Blood Count 4.21 X10*6/uL (4.20-5.50); Red Cell Distribution Width 14.3 % (11.0-16.0); White Blood Count 6.8 X10*3/uL (4.8-10.8)
[2021-11-30 22:37] VITALS: RESP 16; O2SAT 98
[2021-11-30] MEDS: Haloperidol Lactate 5 MG/ML VIAL IM (22:37)
[2021-11-30] MEDS: LORazepam 2 MG/ML VIAL IM (22:37)
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
[2021-11-30 22:41] LABS: Alanine Aminotransferase 257 U/L (0-31); Albumin Level 3.8 g/dL (3.5-5.0); Alkaline Phosphatase 432 U/L (39-117); Anion Gap 16 (12-20); Aspartate Amino Transferase 300 U/L (5-31); Bilirubin Total 2.3 mg/dL (0.0-1.0); Blood Urea Nitrogen 15 mg/dL (9-16); Calcium 8.9 mg/dL (8.4-10.2); Carbon Dioxide 26 mmol/L (22-29); Chloride 110 mmol/L (96-108); Creatinine Clr Calc Pharmacy 101.3; Estimated Glomerular Filt Rate > 60; Glucose Random 103 mg/dL (60-115); Potassium 4.7 mmol/L (3.3-5.1); Sodium 147 mmol/L (135-145); Total Protein 6.8 g/dL (6.5-8.0)
[2021-11-30 22:44] LABS: HCG Quantitative < 2 mIU/mL
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
[2021-11-30 22:52] VITALS: PULSE 79; RESP 16; O2SAT 98
[2021-11-30 22:57] LABS: Lipase 17 U/L (8-78)
[2021-11-30 23:05] VITALS: PULSE 80; RESP 16; O2SAT 97
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
[2021-11-30 23:35] VITALS: RESP 16
[2021-11-30 23:56] VITALS: RESP 16
[2021-11-30] MEDS: diphenhydrAMINE HCL 50 MG/ML VIAL IM (23:56)
[2021-12-01 00:11] VITALS: BP 119/56; PULSE 89; RESP 16; O2SAT 98
[2021-12-01 00:39] VITALS: BP 118/56; PULSE 89; RESP 16; O2SAT 98
--- NOTE | 2021-12-01 01:02 | PC.NURSE ---
PT WILL BE MO0VED TO ED 1 REPORT GIVEN TO ARA WU WHO WILL RESUME PT CARE. PT ON CONTINUOUS MONTIOR.
[2021-12-01 01:13] VITALS: BP 118/58; PULSE 81; RESP 16; O2SAT 97
[2021-12-01 02:29] VITALS: BP 105/67; PULSE 89; RESP 16; TEMP 36.4; O2SAT 97
[2021-12-01 04:53] VITALS: BP 106/79; PULSE 105; RESP 12; TEMP 36.7; O2SAT 99
== END 2021-12-01 05:13 ==
PROVIDERS: Physician Assistant; Emergency Provider Emergency Medicine
DX: S06.0X0A Concussion without loss of consciousness, initial encounter (principal); V47.5XXA Car driver injured in collision with fixed or stationary object in traffic accident, initial encounter; R10.11 Right upper quadrant pain; M25.561 Pain in right knee; F10.120 Alcohol abuse with intoxication, uncomplicated; R45.1 Restlessness and agitation; Y90.9 Presence of alcohol in blood, level not specified; Y93.89 Activity, other specified; Y92.414 Local residential or business street as the place of occurrence of the external cause; Y99.9 Unspecified external cause status
CPT/HCPCS: 36415; 70450; 71250; 72125; 73564; 74176; 80053; 83690; 84702; 85025; 93005; 96372; 96376; 99284; 99285; J1200; J2060

== ENCOUNTER → 2022-01-31 09:51 | Outpatient (BNVA) | payer MEDICARE, MEDICAID, SELFPAY | PROVIDERS: Visit Provider Internal Medicine | DX: Z51.81 Encounter for therapeutic drug level monitoring (principal); F10.10 Alcohol abuse, uncomplicated; K70.31 Alcoholic cirrhosis of liver with ascites; K70.10 Alcoholic hepatitis without ascites; Z94.4 Liver transplant status | CPT/HCPCS: 80305; 99202; 99212 ==

== ENCOUNTER → 2022-02-03 13:35 | Outpatient (BNVA) | payer MEDICARE, MEDICAID, SELFPAY | PROVIDERS: Visit Provider Internal Medicine | DX: Z51.81 Encounter for therapeutic drug level monitoring (principal); F11.20 Opioid dependence, uncomplicated; F10.10 Alcohol abuse, uncomplicated; K74.60 Unspecified cirrhosis of liver; Z94.4 Liver transplant status | CPT/HCPCS: 80305; 99212 ==

== ENCOUNTER 2022-02-03 14:09 | Emergency (ER) | payer MEDICARE, MEDICAID, SELFPAY ==
--- NOTE | ~2022-02-03 | XR_ITS ---
EXAMINATION: XR CHEST CLINICAL INFORMATION: Chest pain COMPARISON: None TECHNIQUE: Frontal view of the chest was obtained. FINDINGS: No significant abnormality is noted involving the heart, lungs, mediastinum, bony thorax or soft tissues. XR/XR chest 1V IMPRESSION: Unremarkable chest examination.
[2022-02-03 14:22] VITALS: BP 110/83; PULSE 118; RESP 18; TEMP 36.9; O2SAT 97
--- NOTE | 2022-02-03 14:34 | ED.GENADULT ---
HPI - General Adult General Chief complaint: Seizure Stated complaint: Alcohol withdrawal, pulse 125, risk of seizure Time Seen by Provider: 02/03/22 14:33 Source: patient Mode of arrival: ambulatory Limitations: no limitations History of Present Illness HPI narrative: Patient is a 31 year old female presenting to the emergency department today after a 30 second episode of unresponsveness . Patient states that she is a daily drinker and has been drinking today. Patient states that she feels fine and she would like to go home, now. Patient states that she is having RUQ abdominal pain that comes and goes but that is because she drinks too much for her new liver . Patient denies any dizziness, lightheadedness, nausea, vomiting, fever, chills, blurry vision, double vision, loss of vision, chest pain, difficulty breathing, shortness of breath, back pain, night sweats, pain with urination, increased urinary frequency, increased urinary urgency, blood in her urine or stool, syncope or a near syncopal episode, recent trauma or falls, bowel incontinence, bladder incontinence, bowel retention, bladder retention, or any other complaints at this time. Related Data Home Medications Medication Instructions Recorded Confirmed tacrolimus 1 mg capsule, 2 mg PO Q12H cap 01/16/22 02/01/22 immediate-release prednisone 20 mg tablet 20 mg PO DAILY 01/31/22 02/01/22 Previous Rx's Medication Instructions Recorded hepatitis A virus vaccine (PF) 50 1 ml IM ONCE #1 ml 03/31/21 unit/mL intramuscular syringe (Vaqta (PF)) docusate sodium 100 mg capsule 100 mg PO DAILY 30 Days #30 cap 05/25/21 (Colace) albuterol sulfate 90 mcg/actuation 2 puff INHALATION Q4-6H PRN 30 08/15/21 aerosol inhaler (ProAir HFA) Days #8.5 g trazodone 50 mg tablet 50 mg PO BEDTIME 90 Days #90 tab 10/12/21 ondansetron HCl 4 mg tablet 4 mg PO Q8H PRN 30 Days #30 tab 10/31/21 (Zofran) olanzapine 2.5 mg tablet 2.5 mg PO DAILY #30 tab 12/12/21 cane #1 ea 01/16/22 tacrolimus 5 mg capsule, 5 mg PO Q12H #60 cap 01/16/22 immediate-release diazepam 5 mg tablet (Valium) 5 mg PO TID PRN 14 Days #42 tab 02/01/22 disulfiram 500 mg tablet 500 mg PO DAILY #30 tab 02/01/22 naltrexone 50 mg tablet 50 mg PO DAILY 30 Days #30 tab 02/01/22 naltrexone microspheres 380 mg 380 mg IM Q4W 30 Days #1 ea 02/03/22 intramuscular suspension,extended release (Vivitrol) Allergies Allergy/AdvReac Type Severity Reaction Status Date / Time acetaminophen [From Vicodin] Allergy Intermediate hives Verified 02/03/22 14:21 hydrocodone [From Vicodin] Allergy Intermediate hives Verified 02/03/22 14:21 tramadol Allergy Intermediate hives Verified 02/03/22 14:21 banana [BANANA] AdvReac Severe DIFFICULTY Verified 02/03/22 14:21 BREATHING seafood AdvReac Hives Verified 02/03/22 14:21 Review of Systems Constitutional: Constitutional: Reports no additional constitutional complaints, Denies chills, Denies fever(s) and Denies night sweats Eyes: Eyes: Reports no additional eye complaints, Denies blurry vision, Denies change in vision, Denies diplopia, Denies eye discharge, Denies loss of vision and Denies eye pain ENT: Denies dizziness Cardiovascular: Cardiovascular: Reports no additional cardiovascular complaints, Denies chest pain, Denies lightheadedness, Denies Loss of Consciousness and Denies dyspnea Respiratory: Respiratory: Reports no additional respiratory complaints and Denies dyspnea Gastrointestinal: Gastrointestinal: Reports no additional gastrointestinal complaints, Reports abdominal pain, Denies melena, Denies hematochezia, Denies change in bowel habits and Denies change in stool character Comments: right upper quadrant abdominal pain Genitourinary: Genitourinary: Denies hematuria, Denies urinary frequency, Denies dysuria, Denies urinary incontinence, Denies urinary hesitancy and Denies urinary urgency Musculoskeletal: Musculoskeletal: Reports no additional musculoskeletal complaints, Denies numbness and Denies tingling Neurologic: Denies dizziness, Denies loss of vision, Denies numbness and Denies tingling Psychiatric: Psychiatric: Reports no additional psychiatric complaints Endocrine: Endocrine: Reports no additional endocrine complaints Hematologic/Lymphatic: Hematologic/Lymphatic: Reports no additional hematologic/lymphatic complaints Allergic/Immunologic: Allergic/Immunologic: Reports no additional allergic/immunologic complaints PMFSH Past Medical History Attestation statement: The following information was validated with the patient. 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 Asthma CHF (congestive heart failure) Chiari malformation CVA (cerebral vascular accident) Depression Depression with anxiety GI bleed Hemorrhoids Hepatitis C Hypokalemia Liver failure Liver transplant planned NSVT (nonsustained ventricular tachycardia) Orthostatic hypotension Peptic ulcer disease Seizures Surgical History Gastric bypass status for obesity History of liver transplant Hx of cholecystectomy Family History Family History Father Liver failure Kidney failure History of heart attack Mother Diabetes HTN (hypertension) Social History Social History Household Members: Family Housing: House Do you presently have visiting nurse or other home services: No Unable to assess alcohol history related to: Refusing to respond Alcohol intake: former Patient Tobacco Use Status: Current everyday Tobacco user Tobacco use type: Cigarette Cigarette Packs Per Day: 0.5 Cigarettes Per Day: 10.0 Years Smoked: 12 e-Cigarette/Vaping Use: Never Used Second Hand Smoke Exposure: Yes Advance Directives: No Advance Directives Information Provided: No Patient : No service: No Current occupational status: disabled Cognitive needs: No Hearing needs: No Vision needs: No Physical Exam ED Vital Signs: Vital Signs - 24 hr 02/03/22 14:22 02/03/22 15:33 Temperature 98.5 F 98.2 F Pulse Rate 118 H 93 Respiratory Rate 18 16 Blood Pressure 110/83 111/76 Pulse Oximetry 97 97 BMI result Body Mass Index 0.0 Const General: cooperative, no acute distress, alert and awake Nutritional Appearance: well nourished Orientation/consciousness: patient oriented x3 Limitations: no limitations HENMT Head: Yes normal to inspection and Yes atraumatic Ears: hearing grossly normal bilaterally and external ears normal General nose exam: Normal external nose present, no nasal discharge noted and no epistaxis Face and sinus: Yes normal facial exam, No abrasion and No laceration Mouth: Normal oral and palatal mucosa present, no drooling and no muffled voice Eyes General: appearance normal, both eyes and all related structures Periorbital: periorbital findings normal Eyelids: Yes eyelids normal Conjunctivae: conjunctivae normal Pupils: Equal, round and reactive pupils present EOM: EOMs intact bilaterally Neck Neck: Yes normal visual inspection, Yes full ROM and Yes no lymphadenopathy Chest Chest palpation & inspection: normal inspection of the chest Resp Effort & Inspection: normal respiratory effort and able to speak in complete sentences Auscultation: clear to auscultation bilaterally Cardio Rate: regular rate Rhythm: regular rhythm GI Inspection: Yes normal to inspection Palpation (GI): Soft to palpation, not firm, nontender, no guarding and not rigid Neuro General: patient oriented x3 and moves all extremities Cranial nerves: Yes Equal, round and reactive pupils present Cognition (Neuro): normal cognition Motor exam (neuro): 5/5 motor strength present throughout Sensory Exam: Normal double simultaneous stimulation for sensation Coordination: [id number] test normal Extrem General: Yes normal to inspection, Yes full ROM and Yes capillary refill normal Psych Appearance: grossly normal Mental Status: mental status grossly normal Affect: normal affect Attitude: cooperative Thought process: Normal thought process present Thought content: Normal thought content present Insight: Good insight present (Psych) Medical Decision Making MDM Narrative Medical decision making narrative: Patient is a 31 year old female presenting to the emergency department today with acute alcohol intoxication and chronic RUQ abdominal pain. Patient's physical exam was unremarkable. Patient's ethanol was elevated at 376. The rest of the patient's blood work was consistent with her baseline, including elevated LFTs. Patient's EKG was unremarkable. I explained my physical exam findings as well as all test results to the patient. I answered all questions asked by the patient. Patient received IM Ativan, IV Morphine, and IV fluids which she stated helped her symptoms significantly. Patient stated that she wanted to leave immediately and would not wait for her RUQ US. Patient's sober mother arrived at the emergency department and the patient left with her. I witnessed the patient ambulating safely into her mothers car. Patient was steady on her feet and of sound decision making skills. I stressed the importance of the patient taking her medication as prescribed. I stressed the importance of the patient following up with her primary care provider. I stressed the importance of the patient returning to the emergency department immediately if her symptoms were to worsen or if she were to develop any dizziness, shortness of breath, difficulty breathing, chest pain, blurry vision, loss of vision, nausea, vomiting, abdominal pain, fever, chills, back pain, or any other complaints. Patient verbalized agreement and understanding with this treatment plan and discharge. Differential Diagnosis Differential Diagnosis: alcohol abuse, liver cirrhosis Medical Records Medical records reviewed: Yes I reviewed the patient's medical records. Lab Data Lab results reviewed: Yes I reviewed the patient's lab results. Result diagrams: 02/03/22 14:54 02/03/22 14:54 Labs: Lab Results 02/03/22 02/03/22 02/03/22 Range/Units 14:54 14:54 14:54 WBC 7.8 (4.8-10.8) X10*3/uL RBC 3.84 L (4.20-5.50) X10*6/uL Hgb 14.0 (12.0-16.0) g/dl Hct 40.2 (37.0-47.0) % MCV 104.7 H (80.0-98.0) fL MCH 36.5 H (27.0-33.0) pg MCHC 34.8 (31.0-35.0) g/dl RDW 13.4 (11.0-16.0) % Plt Count 241 D (160-400) X10*3/uL MPV 8.7 L (9.4-12.3) fL Immature Gran % (Auto) 0.5 H (0.0-0.4) % Neut % (Auto) 52.4 (45-73) % Lymph % (Auto) 35.7 (20-40) % [place] % (Auto) 5.5 (2-11) % Eos % (Auto) 4.1 H (0-4) % Baso % (Auto) 1.8 (0-2) % Lymph # (Auto) 2.8 (1.2-4.9) X10*3/uL [place] # (Auto) 0.4 (0.1-1.2) X10*3/uL Eos # (Auto) 0.3 (0.0-0.4) X10*3/uL Baso # (Auto) 0.1 (0.0-0.2) X10*3/uL Abs Immat Gran (auto) 0.04 H (0.00-0.03) X10*3/uL Absolute Neuts (auto) 4.1 (2.0-8.3) x10*3/uL Absolute Nucleated RBC 0.000 (0.0-0.012) X10*3/uL Nucleated RBC % (auto) 0.0 (0.0-0.2) /100WBC Sodium 140 (135-145) mmol/L Potassium 4.0 (3.3-5.1) mmol/L Chloride 108 (96-108) mmol/L Carbon Dioxide 20 L (22-29) mmol/L Anion Gap 16 (12-20) BUN 5 L D (9-16) mg/dL Creatinine 0.67 (0.5-1.4) mg/dL Estim Creat Clear Calc TNP Estimated GFR > 60 Random Glucose 98 (60-115) mg/dL Calcium 9.0 (8.4-10.2) mg/dL Magnesium 2.1 (1.6-2.6) mg/dL Total Bilirubin 1.5 H (0.0-1.0) mg/dL AST 243 H (5-31) U/L ALT 143 H (0-31) U/L Alkaline Phosphatase 428 H (39-117) U/L Ammonia 40 (13-55) umol/L Total Protein 7.0 (6.5-8.0) g/dL Albumin 3.9 (3.5-5.0) g/dL Lipase 23 (8-78) U/L Ethyl Alcohol mg/dL 02/03/22 Range/Units 14:54 WBC (4.8-10.8) X10*3/uL RBC (4.20-5.50) X10*6/uL Hgb (12.0-16.0) g/dl Hct (37.0-47.0) % MCV (80.0-98.0) fL MCH (27.0-33.0) pg MCHC (31.0-35.0) g/dl RDW (11.0-16.0) % Plt Count (160-400) X10*3/uL MPV (9.4-12.3) fL Immature Gran % (Auto) (0.0-0.4) % Neut % (Auto) (45-73) % Lymph % (Auto) (20-40) % [place] % (Auto) (2-11) % Eos % (Auto) (0-4) % Baso % (Auto) (0-2) % Lymph # (Auto) (1.2-4.9) X10*3/uL [place] # (Auto) (0.1-1.2) X10*3/uL Eos # (Auto) (0.0-0.4) X10*3/uL Baso # (Auto) (0.0-0.2) X10*3/uL Abs Immat Gran (auto) (0.00-0.03) X10*3/uL Absolute Neuts (auto) (2.0-8.3) x10*3/uL Absolute Nucleated RBC (0.0-0.012) X10*3/uL Nucleated RBC % (auto) (0.0-0.2) /100WBC Sodium (135-145) mmol/L Potassium (3.3-5.1) mmol/L Chloride (96-108) mmol/L Carbon Dioxide (22-29) mmol/L Anion Gap (12-20) BUN (9-16) mg/dL Creatinine (0.5-1.4) mg/dL Estim Creat Clear Calc Estimated GFR Random Glucose (60-115) mg/dL Calcium (8.4-10.2) mg/dL Magnesium (1.6-2.6) mg/dL Total Bilirubin (0.0-1.0) mg/dL AST (5-31) U/L ALT (0-31) U/L Alkaline Phosphatase (39-117) U/L Ammonia (13-55) umol/L Total Protein (6.5-8.0) g/dL Albumin (3.5-5.0) g/dL Lipase (8-78) U/L Ethyl Alcohol 376 H* mg/dL Imaging Data Chest x-ray: Attestation: I personally reviewed and interpreted this imaging study as follows: My impression: No acute process. Radiologist's impression: EXAMINATION: XR CHEST CLINICAL INFORMATION: Chest pain COMPARISON: None TECHNIQUE: Frontal view of the chest was obtained. FINDINGS: No significant abnormality is noted involving the heart, lungs, mediastinum, bony thorax or soft tissues. XR/XR chest 1V IMPRESSION: Unremarkable chest examination. Dictated By: Drew Leigh MD Signed By: Electronically signed by Drew Leihg MD 02/03/22 1515 ECG Data Attestation: I personally reviewed and interpreted this ECG as follows: Prior ECG tracings: available for review Interpretation: Vent. Rate: 096 BPM ? ? Atrial Rate: 096 BPM P-R Int: 130 ms? QRS Dur: 074 ms QT Int: 374 ms ? ? ? P-R-T Axes: 012 036 049 degrees QTc Int: 472 ms ? Normal sinus rhythm Normal ECG When compared with ECG of 30-NOV-2021 21:22, No significant change was found ? Referred By: Shilpa Montoya ? Electronically Signed By:BRIGIDO GABRIEL Dictated By: Brigido Gabriel MD Signed By: Electronically signed by Brigido Gabriel MD 02/03/22 1710 Discharge Plan Discharge Clinical Impression: Liver cirrhosis, Alcoholic cirrhosis of liver, Alcohol abuse Patient Disposition: Home, Self-Care Instructions: Abuse of Alcohol (DC) Additional Instructions: Follow up with your primary care provider. Return to the emergency department immediately if your symptoms worsen or if you develop any dizziness, shortness of breath, difficulty breathing, chest pain, blurry vision, loss of vision, nausea, vomiting, abdominal pain, fever, chills, back pain, or any other complaints. Prescriptions: No Action docusate sodium [Colace] 100 mg capsule 100 mg PO DAILY 30 Days Qty: 30 1RF trazodone 50 mg tablet 50 mg PO BEDTIME 90 Days Qty: 90 1RF Vaqta (PF) 50 unit/mL syringe 1 ml IM ONCE Qty: 1 0RF albuterol sulfate [ProAir HFA] 90 mcg/actuation HFA aerosol inhaler 2 puff inhalation Q4-6H PRN (Reason: shortness of breath or wheezing) 30 Days Qty: 8.5 5RF ondansetron HCl [Zofran] 4 mg tablet 4 mg PO Q8H PRN (Reason: nausea and vomiting) 30 Days Qty: 30 3RF olanzapine 2.5 mg tablet 2.5 mg PO DAILY Qty: 30 2RF tacrolimus 1 mg capsule 2 mg PO Q12H 0RF Label Comments: with 5 mg cap for total dose of 7 mg daily tacrolimus 5 mg capsule 5 mg PO Q12H Qty: 60 6RF (DME) cane Device See Rx Instructions .Route Qty: 1 0RF Rx Instructions: As directed disulfiram 500 mg tablet 500 mg PO DAILY Qty: 30 2RF diazepam [Valium] 5 mg tablet 5 mg PO TID PRN (Reason: anxiety) 14 Days Qty: 42 0RF Vivitrol 380 mg suspension,extended rel recon 380 mg IM Q4W 30 Days Qty: 1 5RF prednisone 20 mg tablet 20 mg PO DAILY 0RF naltrexone 50 mg tablet 50 mg PO DAILY 30 Days Qty: 30 1RF Interventions: ED Discharge Assessment Last Done: 02/03/22 16:24 Discharge Date/Time: 02/03/22 16:25 Print Language: [place]i
--- NOTE | 2022-02-03 14:36 | ECG_ITS ---
Test Reason : CHEST PAIN Blood Pressure : / mmHG Vent. Rate : 096 BPM Atrial Rate : 096 BPM P-R Int : 130 ms QRS Dur : 074 ms QT Int : 374 ms P-R-T Axes : 012 036 049 degrees QTc Int : 472 ms Normal sinus rhythm Normal ECG When compared with ECG of 30-NOV-2021 21:22, No significant change was found Referred By: Shilpa Montoya Electronically Signed By:ISABELLA GABRIEL
[2022-02-03 14:59] LABS: Basophils Absolute Auto 0.1 X10*3/uL (0.0-0.2); Basophils Percent Auto 1.8 % (0-2); Eosinophils Absolute Auto 0.3 X10*3/uL (0.0-0.4); Eosinophils Percent Auto 4.1 % (0-4); Hematocrit 40.2 % (37.0-47.0); Imm Gran Abs Auto 0.04 X10*3/uL (0.00-0.03); Imm Gran Pct Auto 0.5 % (0.0-0.4); Lymphocytes Absolute Auto 2.8 X10*3/uL (1.2-4.9); Lymphocytes Percent Auto 35.7 % (20-40); MANUAL DIFF FLAG NO; Mean Corpuscular HGB Conc 34.8 g/dl (31.0-35.0); Mean Corpuscular Hemoglobin 36.5 pg (27.0-33.0); Mean Corpuscular Volume 104.7 fL (80.0-98.0); Mean Platelet Volume 8.7 fL (9.4-12.3); Monocytes Absolute Auto 0.4 X10*3/uL (0.1-1.2); Monocytes Percent Auto 5.5 % (2-11); Neutrophils Absolute Auto 4.1 x10*3/uL (2.0-8.3); Neutrophils Percent Auto 52.4 % (45-73); Platelet Count 241 X10*3/uL (160-400); Red Blood Count 3.84 X10*6/uL (4.20-5.50); Red Cell Distribution Width 13.4 % (11.0-16.0); White Blood Count 7.8 X10*3/uL (4.8-10.8)
[2022-02-03 15:07] LABS: Ammonia 40 umol/L (13-55)
[2022-02-03 15:12] LABS: Ethanol 376 mg/dL
[2022-02-03] MEDS: LORazepam 2 MG/ML VIAL IVPUSH (15:12)
--- NOTE | 2022-02-03 15:13 | PC.NURSE ---
patient being uncooporative at this time, refusing ekg, pt was medicated with ativan 2mg ivp, pt states my liver hurts , pt states If you dont call my doctor and give me pain meds I am leaving to [facility] , will notify provider
[2022-02-03] MEDS: 0.9 % Sodium Chloride 1,000 ML 999 ML IVCONT (15:18)
[2022-02-03 15:19] LABS: Alanine Aminotransferase 143 U/L (0-31); Albumin Level 3.9 g/dL (3.5-5.0); Alkaline Phosphatase 428 U/L (39-117); Anion Gap 16 (12-20); Aspartate Amino Transferase 243 U/L (5-31); Bilirubin Total 1.5 mg/dL (0.0-1.0); Blood Urea Nitrogen 5 mg/dL (9-16); Carbon Dioxide 20 mmol/L (22-29); Chloride 108 mmol/L (96-108); Estimated Glomerular Filt Rate > 60; Glucose Random 98 mg/dL (60-115); Magnesium 2.1 mg/dL (1.6-2.6); Sodium 140 mmol/L (135-145)
[2022-02-03] MEDS: Morphine Sulfate 4 MG/ML CARTRIDGE IVPUSH (15:24)
[2022-02-03] MEDS: PHENobarbitaL 30 MG TABLET 60 MG PO (15:24)
--- NOTE | 2022-02-03 15:27 | PC.NURSE ---
patient medicated per order
[2022-02-03 15:33] VITALS: BP 111/76; PULSE 93; RESP 16; TEMP 36.8; O2SAT 97
[2022-02-03 15:35] LABS: Lipase 23 U/L (8-78)
--- NOTE | 2022-02-03 16:23 | PC.NURSE ---
patients iv was removed and patient discharged with the assistance of the PA to a sober ride.
== END 2022-02-03 16:25 | disposition home or self-care (01) ==
PROVIDERS: Physician Assistant Medical; Emergency Provider Emergency Medicine
DX: R10.11 Right upper quadrant pain (principal); F10.129 Alcohol abuse with intoxication, unspecified; Y90.8 Blood alcohol level of 240 mg/100 ml or more; K70.30 Alcoholic cirrhosis of liver without ascites; Z94.4 Liver transplant status; Z79.899 Other long term (current) drug therapy
CPT/HCPCS: 36415; 71045; 80053; 82077; 82140; 83690; 83735; 85025; 93005; 96361; 96374; 96375; 99284; J2060; J2270

== ENCOUNTER 2022-02-04 12:44 | Emergency (ER) | payer MEDICARE, MEDICAID, SELFPAY ==
--- NOTE | ~2022-02-04 | CT_ITS ---
EXAMINATION: CT HEAD WITHOUT CONTRAST CLINICAL INFORMATION: Right lower extremity weakness COMPARISON: Head CT 12/01/2021 TECHNIQUE: Contiguous axial imaging was performed from the skull base to vertex without intravenous administration of contrast. This CT examination was performed using dose optimization techniques as appropriate, variously including the following: *Automated exposure control *Adjustment of mA and/or kV according to patient size (this includes techniques or standardized protocols for targeted exams where dose is matched to indication/reason for exam; i.e. extremities or head) *Use of iterative reconstruction technique DLP: 657 mGy-cm FINDINGS: There is no evidence of acute intracranial hemorrhage or territorial infarction. No abnormal mass effect or midline shift is seen. [place] to white matter differentiation is well preserved. No extra-axial fluid collections are identified. The ventricles are normal in size. There is no abnormal attenuation within the brain parenchyma. The osseous structures and soft tissues are normal. The mastoid air cells and visualized portions of the paranasal sinuses are well aerated. CT/CT head/brain wo con IMPRESSION: No acute intracranial pathology.
[2022-02-04 12:50] VITALS: BP 120/100; BP 121/89; PULSE 105; PULSE 108; RESP 18; TEMP 36.9; O2SAT 97; O2SAT 98; BMI 24.1
--- NOTE | 2022-02-04 12:58 | ECG_ITS ---
Test Reason : WEAK Blood Pressure : / mmHG Vent. Rate : 098 BPM Atrial Rate : 098 BPM P-R Int : 140 ms QRS Dur : 070 ms QT Int : 368 ms P-R-T Axes : 028 042 049 degrees QTc Int : 469 ms Normal sinus rhythm Normal ECG When compared with ECG of 03-FEB-2022 15:27, No significant change was found Referred By: Christina Savage Electronically Signed By:ISABELLA GABRIEL
--- NOTE | 2022-02-04 13:02 | ED.ABDPAIN ---
HPI - Abdominal Pain General Chief Complaint: ETOH/Substance Use Stated Complaint: etoh Time Seen by Provider: 02/04/22 12:46 Source: patient, EMS and old records reviewed Mode of arrival: EMS Limitations: other (poor historian, vague) History of Present Illness MD elicited complaint: abdominal pain (ETOH abuse, RLE not working) Pertinent past history: other (s/p transplant of liver 06/2021 at [facility] per her reports on medications doesn't know name, drinking started about 1+ month ago) Onset (ago): week(s) (1 - all symptoms abdomen and right leg (though has had leg issues per EMR > 1 month)) Pain Consistency: constant Location: RUQ Severity: severe Quality: stabbing Radiation: none Migration to: no migration Exacerbating factors: other (ETOH) Relieving factors: nothing Context: history of similar episodes Associated symptoms: nausea and other (my right leg doesn't work from my knee down I woke up like this one day.) Related Data Home Medications Medication Instructions Recorded Confirmed tacrolimus 1 mg capsule, 2 mg PO Q12H cap 01/16/22 02/01/22 immediate-release prednisone 20 mg tablet 20 mg PO DAILY 01/31/22 02/01/22 Previous Rx's Medication Instructions Recorded hepatitis A virus vaccine (PF) 50 1 ml IM ONCE #1 ml 03/31/21 unit/mL intramuscular syringe (Vaqta (PF)) docusate sodium 100 mg capsule 100 mg PO DAILY 30 Days #30 cap 05/25/21 (Colace) albuterol sulfate 90 mcg/actuation 2 puff INHALATION Q4-6H PRN 30 08/15/21 aerosol inhaler (ProAir HFA) Days #8.5 g trazodone 50 mg tablet 50 mg PO BEDTIME 90 Days #90 tab 10/12/21 ondansetron HCl 4 mg tablet 4 mg PO Q8H PRN 30 Days #30 tab 10/31/21 (Zofran) olanzapine 2.5 mg tablet 2.5 mg PO DAILY #30 tab 12/12/21 cane #1 ea 01/16/22 tacrolimus 5 mg capsule, 5 mg PO Q12H #60 cap 01/16/22 immediate-release diazepam 5 mg tablet (Valium) 5 mg PO TID PRN 14 Days #42 tab 02/01/22 disulfiram 500 mg tablet 500 mg PO DAILY #30 tab 02/01/22 naltrexone 50 mg tablet 50 mg PO DAILY 30 Days #30 tab 02/01/22 naltrexone microspheres 380 mg 380 mg IM Q4W 30 Days #1 ea 02/03/22 intramuscular suspension,extended release (Vivitrol) Allergies Allergy/AdvReac Type Severity Reaction Status Date / Time acetaminophen [From Vicodin] Allergy Intermediate hives Verified 02/03/22 14:21 hydrocodone [From Vicodin] Allergy Intermediate hives Verified 02/03/22 14:21 tramadol Allergy Intermediate hives Verified 02/03/22 14:21 banana [BANANA] AdvReac Severe DIFFICULTY Verified 02/03/22 14:21 BREATHING seafood AdvReac Hives Verified 02/03/22 14:21 Review of Systems Review of Systems Constitutional : No Weight loss, No Fever, No Chills ENT/Mouth : No sore throat, No Rhinorrhea Eyes: No Swelling, No Redness Cardiovascular : No Chest Pain, No SOB, No edema Respiratory : No Cough, No Sputum, No Wheezing Gastrointestinal : Positive Nausea, no Vomiting, no Diarrhea, positive abdominal Pain, No Hematochezia, No Melena Genitourinary : No Dysuria, No Urinary Frequency, No Hematuria, No Urgency Musculoskeletal : No joint pain, No Myalgias, No Joint Swelling Skin : No Skin Lesions, No rash Neuro : pos Weakness, No Numbness, No Dizziness, No Headache Psych : No Anxiety/Panic, No Depression Heme/Lymph: No Bruising, No Lymphadenopathy Endocrine : No Polyuria, No Polydipsia All other systems reviewed and are negative. [facility] [place] Past Medical History Attestation statement: The following information was validated with the patient. 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 Asthma CHF (congestive heart failure) Chiari malformation CVA (cerebral vascular accident) Depression Depression with anxiety GI bleed Hemorrhoids Hepatitis C Hypokalemia Liver failure Liver transplant planned NSVT (nonsustained ventricular tachycardia) Orthostatic hypotension Peptic ulcer disease Seizures Surgical History Gastric bypass status for obesity History of liver transplant Hx of cholecystectomy Family History Family History Father Liver failure Kidney failure History of heart attack Mother Diabetes HTN (hypertension) Social History Social History Household Members: Family Housing: House Do you presently have visiting nurse or other home services: No Unable to assess alcohol history related to: Refusing to respond Alcohol intake: former Patient Tobacco Use Status: Current everyday Tobacco user Tobacco use type: Cigarette Cigarette Packs Per Day: 0.5 Cigarettes Per Day: 10.0 Years Smoked: 12 e-Cigarette/Vaping Use: Never Used Second Hand Smoke Exposure: Yes Advance Directives: No Advance Directives Information Provided: No Patient : No service: No Current occupational status: disabled Cognitive needs: No Hearing needs: No Vision needs: No Physical Exam ED Vital Signs: Vital Signs - 24 hr 02/04/22 12:50 Temperature 98.5 F Pulse Rate 105 H Respiratory Rate 18 Blood Pressure 121/89 Pulse Oximetry 98 BMI result Body Mass Index 24.1 Appearance: Alert. Oriented X3. Mild acute distress. Anxious ETOH odor, slurred speech Eyes: Pupils equal, round and reactive to light. Scleral icterus ENT: Pharynx normal. Neck: Normal inspection. Neck supple. CVS: tachycardic heart rate and rhythm. Pulses normal. Respiratory: No respiratory distress. Breath sounds normal. Abdomen: Soft and mild RUQ ttp no rebound no ascites seen Skin: Skin warm and dry. Normal skin color. Normal skin turgor. Extremities: No lower extremity edema. Neuro: Oriented X 3. RLE states she cannot move from knee down - reflexes 1+ in RLE, states sensation decreased in RLE. can move at her R hip - present > 1 week denies trauma. 2+ DP pulse Course Course Course Narrative: patient now stating that she is leaving because on top of the dilaudid and other medications she is now requesting ativan. On top of her ETOH level, normal BP and no signs of tremors I do not feel this is appropriate. She is demanding the ativan. At this time I told her we are going to hold off. She now states she is leaving. I asked her to call her mother and have her come to the bedside. She left in a similar manner yesterday. She is GCS 15 alert and oriented x 3. She is aware I am looking for clot in PV at this point given her RUQ pain. LFTs stable from baseline PV thrombus seems unlikely I was informed by RN that the patient removed her IV and eloped while I was in assessing patient off EMS stretcher patient ambulated out to her mother in the waiting room. Patient left prior to CT of abdomen which she finally agreed to after initially refusing after I explained PV thrombosis, she left prior to result of head CT. RN attempted to get her to stay. I was not notified that she had left the ED until after she was gone. message left at [facility] to let them know patient has been seen here and left both days - coordinator may call back, patient clearly decompensated and needs help at this time. MDM - Abdominal Pain MDM Narrative Medical decision making narrative: 31 yo female with hx of ETOH abuse s/p liver transplant 06/2021 unfortunately she has been drinking for the past month and a half - seen yesterday c/o unable to use R leg but seen walking out of here, had MRI for RLE stated it was a pinched nerve. She c/o RUQ pain - at this time will obtain labs, ammonia, CT scan for PV thrombosis, CT head for stroke or ICH though seems peripheral in nature. IV medications. She is refusing inpatient rehab states she just did outpatient and she will not go inpatient. Lab Data Result diagrams: 02/04/22 13:27 02/04/22 13:59 Labs: Lab Results 02/04/22 02/04/22 02/04/22 Range/Units 13:27 13:27 13:27 WBC 8.3 (4.8-10.8) X10*3/uL RBC 4.01 L (4.20-5.50) X10*6/uL Hgb 14.4 (12.0-16.0) g/dl Hct 42.0 (37.0-47.0) % MCV 104.7 H (80.0-98.0) fL MCH 35.9 H (27.0-33.0) pg MCHC 34.3 (31.0-35.0) g/dl RDW 13.2 (11.0-16.0) % Plt Count 242 (160-400) X10*3/uL MPV 9.0 L (9.4-12.3) fL Immature Gran % (Auto) 0.4 (0.0-0.4) % Neut % (Auto) 63.6 (45-73) % Lymph % (Auto) 23.8 (20-40) % Pierce % (Auto) 5.9 (2-11) % Eos % (Auto) 4.5 H (0-4) % Baso % (Auto) 1.8 (0-2) % Lymph # (Auto) 2.0 (1.2-4.9) X10*3/uL Pierce # (Auto) 0.5 (0.1-1.2) X10*3/uL Eos # (Auto) 0.4 (0.0-0.4) X10*3/uL Baso # (Auto) 0.2 (0.0-0.2) X10*3/uL Abs Immat Gran (auto) 0.03 (0.00-0.03) X10*3/uL Absolute Neuts (auto) 5.3 (2.0-8.3) x10*3/uL Absolute Nucleated RBC 0.000 (0.0-0.012) X10*3/uL Nucleated RBC % (auto) 0.0 (0.0-0.2) /100WBC PT (9.9-13.0) SEC INR (0.9-1.1) APTT VBG pH (7.32-7.43) VBG pCO2 mmHg VBG pO2 mmHg VBG HCO3 (22-26) mmol/L VBG O2 Saturation % VBG Base Excess mmol/L Sodium (135-145) mmol/L Potassium (3.3-5.1) mmol/L Chloride (96-108) mmol/L Carbon Dioxide (22-29) mmol/L Anion Gap (12-20) BUN (9-16) mg/dL Creatinine (0.5-1.4) mg/dL Estim Creat Clear Calc Estimated GFR Random Glucose (60-115) mg/dL Lactic Acid (0.5-2.0) mmol/L Calcium (8.4-10.2) mg/dL Magnesium (1.6-2.6) mg/dL Total Bilirubin (0.0-1.0) mg/dL Direct Bilirubin (0.0-0.5) mg/dL AST (5-31) U/L ALT (0-31) U/L Alkaline Phosphatase (39-117) U/L Ammonia 50 (13-55) umol/L Total Protein (6.5-8.0) g/dL Albumin (3.5-5.0) g/dL Lipase (8-78) U/L Urine Color Urine Appearance Urine pH (5.0-8.0) Ur Specific [place] (1.005-1.025) Urine Protein (NEG-TRACE) MG/DL Urine Glucose (UA) (NEG) MG/DL Urine Ketones (NEG) MG/DL Urine Blood (NEG) Urine Nitrite (NEG) Ur Leukocyte Esterase (NEG) Urine RBC (0) /HPF Urine WBC (0-4) /HPF Ur Squamous Epith Cells /LPF Urine Bacteria /LPF Urine Mucus /LPF Ethyl Alcohol mg/dL COVID-19 ([facility]) Negative (Negative) COVID-19 Clin Com See Note 02/04/22 02/04/22 02/04/22 Range/Units 13:27 13:27 13:27 WBC (4.8-10.8) X10*3/uL RBC (4.20-5.50) X10*6/uL Hgb (12.0-16.0) g/dl Hct (37.0-47.0) % MCV (80.0-98.0) fL MCH (27.0-33.0) pg MCHC (31.0-35.0) g/dl RDW (11.0-16.0) % Plt Count (160-400) X10*3/uL MPV (9.4-12.3) fL Immature Gran % (Auto) (0.0-0.4) % Neut % (Auto) (45-73) % Lymph % (Auto) (20-40) % Pierce % (Auto) (2-11) % Eos % (Auto) (0-4) % Baso % (Auto) (0-2) % Lymph # (Auto) (1.2-4.9) X10*3/uL Pierce # (Auto) (0.1-1.2) X10*3/uL Eos # (Auto) (0.0-0.4) X10*3/uL Baso # (Auto) (0.0-0.2) X10*3/uL Abs Immat Gran (auto) (0.00-0.03) X10*3/uL Absolute Neuts (auto) (2.0-8.3) x10*3/uL Absolute Nucleated RBC (0.0-0.012) X10*3/uL Nucleated RBC % (auto) (0.0-0.2) /100WBC PT (9.9-13.0) SEC INR (0.9-1.1) APTT Cancelled VBG pH (7.32-7.43) VBG pCO2 mmHg VBG pO2 mmHg VBG HCO3 (22-26) mmol/L VBG O2 Saturation % VBG Base Excess mmol/L Sodium (135-145) mmol/L Potassium (3.3-5.1) mmol/L Chloride (96-108) mmol/L Carbon Dioxide (22-29) mmol/L Anion Gap (12-20) BUN (9-16) mg/dL Creatinine (0.5-1.4) mg/dL Estim Creat Clear Calc Estimated GFR Random Glucose (60-115) mg/dL Lactic Acid 1.6 (0.5-2.0) mmol/L Calcium (8.4-10.2) mg/dL Magnesium (1.6-2.6) mg/dL Total Bilirubin (0.0-1.0) mg/dL Direct Bilirubin (0.0-0.5) mg/dL AST (5-31) U/L ALT (0-31) U/L Alkaline Phosphatase (39-117) U/L Ammonia (13-55) umol/L Total Protein (6.5-8.0) g/dL Albumin (3.5-5.0) g/dL Lipase (8-78) U/L Urine Color Urine Appearance Urine pH (5.0-8.0) Ur Specific [place] (1.005-1.025) Urine Protein (NEG-TRACE) MG/DL Urine Glucose (UA) (NEG) MG/DL Urine Ketones (NEG) MG/DL Urine Blood (NEG) Urine Nitrite (NEG) Ur Leukocyte Esterase (NEG) Urine RBC (0) /HPF Urine WBC (0-4) /HPF Ur Squamous Epith Cells /LPF Urine Bacteria /LPF Urine Mucus /LPF Ethyl Alcohol 366 H* mg/dL COVID-19 ([facility]) (Negative) COVID-19 Clin Com 02/04/22 02/04/22 02/04/22 Range/Units 13:27 13:32 13:43 WBC (4.8-10.8) X10*3/uL RBC (4.20-5.50) X10*6/uL Hgb (12.0-16.0) g/dl Hct (37.0-47.0) % MCV (80.0-98.0) fL MCH (27.0-33.0) pg MCHC (31.0-35.0) g/dl RDW (11.0-16.0) % Plt Count (160-400) X10*3/uL MPV (9.4-12.3) fL Immature Gran % (Auto) (0.0-0.4) % Neut % (Auto) (45-73) % Lymph % (Auto) (20-40) % Pierce % (Auto) (2-11) % Eos % (Auto) (0-4) % Baso % (Auto) (0-2) % Lymph # (Auto) (1.2-4.9) X10*3/uL Pierce # (Auto) (0.1-1.2) X10*3/uL Eos # (Auto) (0.0-0.4) X10*3/uL Baso # (Auto) (0.0-0.2) X10*3/uL Abs Immat Gran (auto) (0.00-0.03) X10*3/uL Absolute Neuts (auto) (2.0-8.3) x10*3/uL Absolute Nucleated RBC (0.0-0.012) X10*3/uL Nucleated RBC % (auto) (0.0-0.2) /100WBC PT 11.2 (9.9-13.0) SEC INR 1.0 (0.9-1.1) APTT 34.5 VBG pH 7.38 (7.32-7.43) VBG pCO2 35 mmHg VBG pO2 83 mmHg VBG HCO3 21 L (22-26) mmol/L VBG O2 Saturation 94.0 % VBG Base Excess -2.6 mmol/L Sodium (135-145) mmol/L Potassium (3.3-5.1) mmol/L Chloride (96-108) mmol/L Carbon Dioxide (22-29) mmol/L Anion Gap (12-20) BUN (9-16) mg/dL Creatinine (0.5-1.4) mg/dL Estim Creat Clear Calc Estimated GFR Random Glucose (60-115) mg/dL Lactic Acid (0.5-2.0) mmol/L Calcium (8.4-10.2) mg/dL Magnesium (1.6-2.6) mg/dL Total Bilirubin (0.0-1.0) mg/dL Direct Bilirubin (0.0-0.5) mg/dL AST (5-31) U/L ALT (0-31) U/L Alkaline Phosphatase (39-117) U/L Ammonia (13-55) umol/L Total Protein (6.5-8.0) g/dL Albumin (3.5-5.0) g/dL Lipase (8-78) U/L Urine Color YELLOW Urine Appearance CLEAR Urine pH 6.0 (5.0-8.0) Ur Specific [place] <= 1.005 (1.005-1.025) Urine Protein 1+ H (NEG-TRACE) MG/DL Urine Glucose (UA) NEG (NEG) MG/DL Urine Ketones NEG (NEG) MG/DL Urine Blood TRACE (NEG) Urine Nitrite NEG (NEG) Ur Leukocyte Esterase NEG (NEG) Urine RBC 0-2 (0) /HPF Urine WBC 0 (0-4) /HPF Ur Squamous Epith Cells 1+ /LPF Urine Bacteria NONE /LPF Urine Mucus TRACE /LPF Ethyl Alcohol mg/dL COVID-19 ([facility]) (Negative) COVID-19 Clin Com 02/04/22 Range/Units 13:59 WBC (4.8-10.8) X10*3/uL RBC (4.20-5.50) X10*6/uL Hgb (12.0-16.0) g/dl Hct (37.0-47.0) % MCV (80.0-98.0) fL MCH (27.0-33.0) pg MCHC (31.0-35.0) g/dl RDW (11.0-16.0) % Plt Count (160-400) X10*3/uL MPV (9.4-12.3) fL Immature Gran % (Auto) (0.0-0.4) % Neut % (Auto) (45-73) % Lymph % (Auto) (20-40) % Pierce % (Auto) (2-11) % Eos % (Auto) (0-4) % Baso % (Auto) (0-2) % Lymph # (Auto) (1.2-4.9) X10*3/uL Pierce # (Auto) (0.1-1.2) X10*3/uL Eos # (Auto) (0.0-0.4) X10*3/uL Baso # (Auto) (0.0-0.2) X10*3/uL Abs Immat Gran (auto) (0.00-0.03) X10*3/uL Absolute Neuts (auto) (2.0-8.3) x10*3/uL Absolute Nucleated RBC (0.0-0.012) X10*3/uL Nucleated RBC % (auto) (0.0-0.2) /100WBC PT (9.9-13.0) SEC INR (0.9-1.1) APTT VBG pH (7.32-7.43) VBG pCO2 mmHg VBG pO2 mmHg VBG HCO3 (22-26) mmol/L VBG O2 Saturation % VBG Base Excess mmol/L Sodium 141 (135-145) mmol/L Potassium 4.2 (3.3-5.1) mmol/L Chloride 111 H (96-108) mmol/L Carbon Dioxide 19 L (22-29) mmol/L Anion Gap 15 (12-20) BUN 5 L (9-16) mg/dL Creatinine 0.61 (0.5-1.4) mg/dL Estim Creat Clear Calc 134.7 Estimated GFR > 60 Random Glucose 90 (60-115) mg/dL Lactic Acid (0.5-2.0) mmol/L Calcium 8.3 L D (8.4-10.2) mg/dL Magnesium 1.9 (1.6-2.6) mg/dL Total Bilirubin 1.6 H (0.0-1.0) mg/dL Direct Bilirubin 1.1 H (0.0-0.5) mg/dL AST 199 H (5-31) U/L ALT 120 H (0-31) U/L Alkaline Phosphatase 399 H (39-117) U/L Ammonia (13-55) umol/L Total Protein 6.2 L (6.5-8.0) g/dL Albumin 3.5 (3.5-5.0) g/dL Lipase 20 (8-78) U/L Urine Color Urine Appearance Urine pH (5.0-8.0) Ur Specific [place] (1.005-1.025) Urine Protein (NEG-TRACE) MG/DL Urine Glucose (UA) (NEG) MG/DL Urine Ketones (NEG) MG/DL Urine Blood (NEG) Urine Nitrite (NEG) Ur Leukocyte Esterase (NEG) Urine RBC (0) /HPF Urine WBC (0-4) /HPF Ur Squamous Epith Cells /LPF Urine Bacteria /LPF Urine Mucus /LPF Ethyl Alcohol mg/dL COVID-19 ([facility]) (Negative) COVID-19 Clin Com ECG Data Attestation: I personally reviewed and interpreted this ECG as follows: ECG interpretation date: 02/04/22 ECG interpretation time: 13:12 Interpretation: Rate: 98 Rhythm: NSR [place]: normal Normal P waves. Normal EUSEBIO. Normal QRS complex. ST T wave : normal no POLO qTC: normal prior studies: no acute ischemia The study has been interpreted contemporaneously by me. Discharge Plan Discharge Clinical Impression: Abdominal pain Qualifiers: Abdominal location: right upper quadrant Qualified Code(s): R10.11 - Right upper quadrant pain Alcohol intoxication Qualifiers: Complication of substance-induced condition: uncomplicated Qualified Code(s): F10.920 - Alcohol use, unspecified with intoxication, uncomplicated Patient Disposition: Elopement Prescriptions: No Action docusate sodium [Colace] 100 mg capsule 100 mg PO DAILY 30 Days Qty: 30 1RF trazodone 50 mg tablet 50 mg PO BEDTIME 90 Days Qty: 90 1RF Vaqta (PF) 50 unit/mL syringe 1 ml IM ONCE Qty: 1 0RF albuterol sulfate [ProAir HFA] 90 mcg/actuation HFA aerosol inhaler 2 puff inhalation Q4-6H PRN (Reason: shortness of breath or wheezing) 30 Days Qty: 8.5 5RF ondansetron HCl [Zofran] 4 mg tablet 4 mg PO Q8H PRN (Reason: nausea and vomiting) 30 Days Qty: 30 3RF olanzapine 2.5 mg tablet 2.5 mg PO DAILY Qty: 30 2RF tacrolimus 1 mg capsule 2 mg PO Q12H 0RF Label Comments: with 5 mg cap for total dose of 7 mg daily tacrolimus 5 mg capsule 5 mg PO Q12H Qty: 60 6RF (DME) cane Device See Rx Instructions .Route Qty: 1 0RF Rx Instructions: As directed disulfiram 500 mg tablet 500 mg PO DAILY Qty: 30 2RF diazepam [Valium] 5 mg tablet 5 mg PO TID PRN (Reason: anxiety) 14 Days Qty: 42 0RF Vivitrol 380 mg suspension,extended rel recon 380 mg IM Q4W 30 Days Qty: 1 5RF prednisone 20 mg tablet 20 mg PO DAILY 0RF naltrexone 50 mg tablet 50 mg PO DAILY 30 Days Qty: 30 1RF Discharge Date/Time: 02/04/22 14:31
[2022-02-04 13:35] LABS: MANUAL DIFF FLAG NO
[2022-02-04 13:37] LABS: Basophils Absolute Auto 0.2 X10*3/uL (0.0-0.2); Basophils Percent Auto 1.8 % (0-2); Eosinophils Absolute Auto 0.4 X10*3/uL (0.0-0.4); Eosinophils Percent Auto 4.5 % (0-4); Hemoglobin 14.4 g/dl (12.0-16.0); Imm Gran Abs Auto 0.03 X10*3/uL (0.00-0.03); Imm Gran Pct Auto 0.4 % (0.0-0.4); Lymphocytes Percent Auto 23.8 % (20-40); Mean Corpuscular HGB Conc 34.3 g/dl (31.0-35.0); Mean Corpuscular Hemoglobin 35.9 pg (27.0-33.0); Mean Corpuscular Volume 104.7 fL (80.0-98.0); Monocytes Absolute Auto 0.5 X10*3/uL (0.1-1.2); Monocytes Percent Auto 5.9 % (2-11); Neutrophils Absolute Auto 5.3 x10*3/uL (2.0-8.3); Neutrophils Percent Auto 63.6 % (45-73); Platelet Count 242 X10*3/uL (160-400); Red Blood Count 4.01 X10*6/uL (4.20-5.50); Red Cell Distribution Width 13.2 % (11.0-16.0); White Blood Count 8.3 X10*3/uL (4.8-10.8)
[2022-02-04 13:41] LABS: VBG Base Excess -2.6 mmol/L; VBG HCO3 21 mmol/L (22-26); VBG pCO2 35 mmHg; VBG pH 7.38 (7.32-7.43); VBG pO2 83 mmHg
[2022-02-04] MEDS: ondansetron HCL 4 MG/2 ML VIAL IVPUSH (13:41)
[2022-02-04] MEDS: Thiamine HCL 200 MG in 0.9 % Sodium Chloride 100 ML 204 MG IV (13:41)
[2022-02-04] MEDS: HYDROmorphone HCl 0.5 MG/0.5 ML SYRINGE IVPUSH (13:42)
[2022-02-04 13:43] LABS: Venous Blood Gas Refer to POC result
[2022-02-04 13:47] LABS: Prothrombin Time 11.2 SEC (9.9-13.0)
[2022-02-04 13:49] LABS: Appearance Urine CLEAR; Color Urine YELLOW; Glucose Urine UA NEG (NEG); Leukocyte Esterase Urine NEG (NEG); Nitrite Urine NEG (NEG); Specific Gravity - Urine <= 1.005 (1.005-1.025); UACC Culture Trigger NO; Urine Blood TRACE (NEG); Urine Ketones NEG (NEG); Urine Protein 1+ MG/DL (NEG-TRACE)
[2022-02-04 13:50] LABS: Partial Thromboplastin Time 34.5 SEC (24.1-38.0)
[2022-02-04 13:51] LABS: Lactic Acid 1.6 mmol/L (0.5-2.0)
[2022-02-04 13:54] LABS: Ammonia 50 umol/L (13-55)
[2022-02-04 13:55] LABS: Mucus Urine TRACE /LPF; RBC Urine 0-2 /HPF (0); Squamous Epithelial Cell Urine 1+ /LPF; WBC Urine 0 /HPF (0-4)
[2022-02-04 13:55] LABS: Ethanol 366 mg/dL
[2022-02-04 13:57] LABS: COVID-19 Test Negative (Negative)
[2022-02-04 14:21] LABS: Alanine Aminotransferase 120 U/L (0-31); Albumin Level 3.5 g/dL (3.5-5.0); Alkaline Phosphatase 399 U/L (39-117); Anion Gap 15 (12-20); Aspartate Amino Transferase 199 U/L (5-31); Bilirubin Direct 1.1 mg/dL (0.0-0.5); Bilirubin Total 1.6 mg/dL (0.0-1.0); Blood Urea Nitrogen 5 mg/dL (9-16); Calcium 8.3 mg/dL (8.4-10.2); Carbon Dioxide 19 mmol/L (22-29); Chloride 111 mmol/L (96-108); Creatinine Clr Calc Pharmacy 134.7; Estimated Glomerular Filt Rate > 60; Glucose Random 90 mg/dL (60-115); Lipase 20 U/L (8-78); Magnesium 1.9 mg/dL (1.6-2.6); Potassium 4.2 mmol/L (3.3-5.1); Sodium 141 mmol/L (135-145); Total Protein 6.2 g/dL (6.5-8.0)
--- NOTE | 2022-02-04 14:50 | PC.NURSE ---
pt was very upset and left ama, IV pulled, mom coming in to get her, she would not accept that she was not going into withdraw, alcohol was [address] Savage she was not in active withdraw. SHe had a slow, steady gait w standby assist with this RN walked her to waiting room. She does have resources for outpatient services regarding her alcohol intake. Reinforced that she not drink due to recent liver transplant.
== END 2022-02-04 14:31 | disposition left against medical advice (07) ==
LOC: HO.ED 13:05
PROVIDERS: Emergency Provider Emergency Medicine
DX: F10.120 Alcohol abuse with intoxication, uncomplicated (principal); Y90.8 Blood alcohol level of 240 mg/100 ml or more; R10.11 Right upper quadrant pain; Z20.822 Contact with and (suspected) exposure to COVID-19; F41.9 Anxiety disorder, unspecified; F17.200 Nicotine dependence, unspecified, uncomplicated; Z94.4 Liver transplant status; Z90.49 Acquired absence of other specified parts of digestive tract
CPT/HCPCS: 36415; 70450; 80048; 80076; 81001; 82077; 82140; 82803; 83605; 83690; 83735; 85025; 85610; 85730; 87040; 87635; 93005; 96365; 96375; 99283; 99284; J1170; J2405; J3411

== ENCOUNTER → 2022-02-15 13:56 | Outpatient (BNVA) | payer MEDICARE, MEDICAID, SELFPAY | PROVIDERS: Visit Provider Internal Medicine | DX: Z51.81 Encounter for therapeutic drug level monitoring (principal); F10.10 Alcohol abuse, uncomplicated | CPT/HCPCS: 80305; 99212 ==

== ENCOUNTER → 2022-02-22 15:08 | Outpatient (BNVA) | payer MEDICARE, MEDICAID, SELFPAY | PROVIDERS: Visit Provider Internal Medicine | DX: F10.10 Alcohol abuse, uncomplicated (principal); Z32.02 Encounter for pregnancy test, result negative | CPT/HCPCS: 80305; 81025; 96372; 99212; J2315 ==

== ENCOUNTER → 2022-03-17 11:45 | Outpatient (BNVA) | payer MEDICARE, MEDICAID, SELFPAY | PROVIDERS: Visit Provider Internal Medicine | DX: Z13.89 Encounter for screening for other disorder (principal) ==

== ENCOUNTER → 2022-03-21 13:00 | Outpatient (BNVA) | payer MEDICARE, MEDICAID, SELFPAY | PROVIDERS: Visit Provider Internal Medicine | DX: Z51.81 Encounter for therapeutic drug level monitoring (principal); F10.10 Alcohol abuse, uncomplicated; Z79.899 Other long term (current) drug therapy | CPT/HCPCS: 80305; 96372; 99212; J2315 ==

== ENCOUNTER → 2022-04-25 14:35 | Outpatient (BNVA) | payer MEDICARE, MEDICAID, SELFPAY | PROVIDERS: PCP Family Medicine; Visit Provider Internal Medicine | DX: F10.10 Alcohol abuse, uncomplicated (principal) | CPT/HCPCS: 80305; 81025; 99212 ==

== ENCOUNTER → 2022-05-02 10:46 | Outpatient (BNVA) | payer MEDICARE, MEDICAID, SELFPAY | PROVIDERS: PCP Family Medicine; Visit Provider Internal Medicine | DX: Z51.81 Encounter for therapeutic drug level monitoring (principal); F10.10 Alcohol abuse, uncomplicated | CPT/HCPCS: 80305; 81025; 96372; 99212; J2315 ==

== ENCOUNTER 2022-06-05 22:14 | Emergency (ER) | payer MEDICARE, MEDICAID, SELFPAY ==
--- NOTE | ~2022-06-05 | XR_ITS ---
EXAMINATION: XR CHEST CLINICAL INFORMATION: Overdose COMPARISON: Chest x-ray 02/03/2022 TECHNIQUE: Frontal portable view of the chest was obtained. 10:51 PM FINDINGS: Lung volume is low causing crowding of the bronchovascular markings. No acute airspace disease. No pleural effusion or pneumothorax. Cardiac and mediastinal contours are normal. The heart size is normal. XR/XR chest 1V IMPRESSION: No acute abnormality of the chest.
[2022-06-05 22:26] VITALS: BP 120/78; PULSE 78; O2SAT 98
[2022-06-05 22:31] VITALS: BP 93/64; PULSE 126; RESP 16; TEMP 37.1; O2SAT 94; BMI 26.4
--- NOTE | 2022-06-05 22:37 | ECG_ITS ---
Test Reason : ?MED OVERDOSE Blood Pressure : / mmHG Vent. Rate : 117 BPM Atrial Rate : 117 BPM P-R Int : 134 ms QRS Dur : 076 ms QT Int : 334 ms P-R-T Axes : 036 044 026 degrees QTc Int : 465 ms Sinus tachycardia Otherwise normal ECG When compared with ECG of 04-FEB-2022 13:04, No significant change was found Referred By: Generic ED Physician Electronically Signed By:ESPERANZA ASKEW MD
--- NOTE | 2022-06-05 22:46 | ED_ITS ---
HPI - Overdose General Chief Complaint: ETOH/Substance Use Stated Complaint: ETOH Time Seen by Provider: 06/05/22 22:46 Source: EMS Mode of arrival: EMS Limitations: altered mental status History of Present Illness HPI Narrative: Patient is 31 years old brought by EMS as she called 911 after taking 7 nebs and about 10-12 tablets of olanzapine 5 mg just prior to arrival patient did not want to harm herself per EMS just wanted to democrat after arrival patient in the ER is obtunded unable to arouse pupils pinpoint. Blood pressure 93/64 pulse rate 126 saturating 94% on room Related Data Home Medications Medication Instructions Recorded Confirmed tacrolimus 1 mg capsule, 2 mg PO Q12H 01/16/22 04/24/22 immediate-release prednisone 20 mg tablet 20 mg PO DAILY 01/31/22 04/24/22 Previous Rx's Medication Instructions Recorded hepatitis A virus vaccine (PF) 50 1 ml IM ONCE #1 mL 03/31/21 unit/mL intramuscular syringe (Vaqta (PF)) docusate sodium 100 mg capsule 100 mg PO DAILY 30 days #30 caps 05/25/21 (Colace) ondansetron HCl 4 mg tablet 4 mg PO Q8H PRN nausea and 10/31/21 (Zofran) vomiting 1 month #30 tabs olanzapine 2.5 mg tablet 2.5 mg PO DAILY #30 tabs 12/12/21 cane #1 ea 01/16/22 tacrolimus 5 mg capsule, 5 mg PO Q12H #60 caps 01/16/22 immediate-release diazepam 5 mg tablet (Valium) 5 mg PO TID PRN anxiety 14 days 02/01/22 #42 tabs disulfiram 500 mg tablet 500 mg PO DAILY #30 tabs 02/01/22 naltrexone microspheres 380 mg 380 mg IM Q4W 30 days #1 ea 02/03/22 intramuscular suspension,extended release (Vivitrol) trazodone 50 mg tablet 50 mg PO BEDTIME #90 tabs 02/06/22 albuterol sulfate 90 mcg/actuation 2 puff inhalation Q4-6H PRN for 02/20/22 aerosol inhaler wheezing #8.5 ea amoxicillin 875 mg tablet 875 mg PO Q12H #14 tabs 03/02/22 cefpodoxime 200 mg tablet 200 mg PO Q12H 10 days #20 tabs 04/24/22 hydrocortisone 2.5 % topical cream 1 appl MD BID-QID PRN hemorrhoids 04/24/22 with perineal applicator 14 days #30 grams (Proctosol HC) polyethylene glycol 3350 17 gram 17 g PO DAILY 14 days #14 ea 04/24/22 oral powder packet (Miralax) polyethylene glycol 3350 17 gram 17 g PO DAILY 5 days #5 ea 04/24/22 oral powder packet (Miralax) blood pressure monitor #1 ea 05/26/22 naltrexone 50 mg tablet 50 mg PO DAILY 14 days #14 tabs 06/05/22 Allergies Allergy/AdvReac Type Severity Reaction Status Date / Time acetaminophen [From Vicodin] Allergy Intermediate hives Verified 04/24/22 14:40 hydrocodone [From Vicodin] Allergy Intermediate hives Verified 04/24/22 14:40 tramadol Allergy Intermediate hives Verified 04/24/22 14:40 banana [BANANA] AdvReac Severe DIFFICULTY Verified 04/24/22 14:40 BREATHING seafood AdvReac Hives Verified 04/24/22 14:40 Review of Systems Review of Systems: Yes all other systems are reviewed and are negative [facility] Past Medical History 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 Asthma CHF (congestive heart failure) Chiari malformation CVA (cerebral vascular accident) Depression Depression with anxiety GI bleed Hepatitis C Hypokalemia Liver failure Liver transplant planned NSVT (nonsustained ventricular tachycardia) Orthostatic hypotension Peptic ulcer disease Seizures Surgical History Gastric bypass status for obesity History of liver transplant Hx of cholecystectomy Family History Family History Father Liver failure Kidney failure History of heart attack Mother Diabetes HTN (hypertension) Social History Social History Household Members: Family Housing: House Do you presently have visiting nurse or other home services: No Unable to assess alcohol history related to: Refusing to respond Alcohol intake: former Patient Tobacco Use Status: Current everyday Tobacco user Tobacco use type: Cigarette Cigarette Packs Per Day: 0.5 Cigarettes Per Day: 10.0 Years Smoked: 12 e-Cigarette/Vaping Use: Never Used Second Hand Smoke Exposure: Yes Advance Directives: No Advance Directives Information Provided: No service: No Current occupational status: disabled Cognitive needs: No Hearing needs: No Vision needs: No Physical Exam Vital Signs: Vital Signs: Last Vital Signs Temp 96.6 F L 06/06/22 01:33 Pulse 89 06/06/22 01:33 Resp 18 06/06/22 01:33 BP 106/66 06/06/22 01:33 Pulse Ox 99 06/06/22 01:33 O2 Del Method 06/06/22 01:33 O2 Flow Rate 3 06/06/22 01:33 BMI result Body Mass Index 26.4 Appearance: Obtunded etoh + Eyes: Pupils pinpoint ENT: Pharynx normal. Oral Mucosa moist Neck: Normal inspection. Neck supple. CVS: Sinus tachycardia Pulses normal. Respiratory: No respiratory distress. Equal air entry bilateral, no wheezing/rales/rhonchi Abdomen: Soft and nontender. Bowel sounds are present, no mass palpable, no CVA tenderness Skin: Skin warm and dry. Normal skin color. Normal skin turgor. Extremities: No lower extremity edema. No calf tenderness Neuro: Obtunded Course Reevaluation(s) Reevaluation #1: Patient with alcohol and overdose with Zyprexa patient took medications around 2200 case discussed with poison control peak peak action at about 2 hours supportive treatment duration of action 8 hours for increased agitation one can use benzo Time: 23:32 MDM - Overdose MDM Narrative Medical decision making narrative: Patient with alcohol intoxication with Zyprexa overdose patient responded to IV fluids and Narcan was agitated. No signs of trauma. Lab workup showed potassium 2.9 and magnesium level of 1.5 will replace magnesium and potassium. Patient transiently drop of the blood pressure to 82/46 responded to IV fluids will continue to watch for another 6 hours. Patient is maintaining her airway. Plan to keep her overnight in the ER re-evaluate in the morning get crisis consultation Lab Data Attestation: I reviewed the patient's lab results. Result diagrams: 06/05/22 23:10 06/05/22 23:10 Labs: Lab Results 06/05/22 06/05/22 06/05/22 Range/Units 23:10 23:10 23:10 WBC 4.5 L (4.8-10.8) X10*3/uL RBC 3.85 L (4.20-5.50) X10*6/uL Hgb 13.1 (12.0-16.0) g/dl Hct 37.0 (37.0-47.0) % MCV 96.1 (80.0-98.0) fL MCH 34.0 H (27.0-33.0) pg MCHC 35.4 H (31.0-35.0) g/dl RDW 15.9 (11.0-16.0) % Plt Count 158 L D (160-400) X10*3/uL MPV 9.6 (9.4-12.3) fL Immature Gran % (Auto) 0.4 (0.0-0.4) % Neut % (Auto) 53.3 (45-73) % Lymph % (Auto) 37.2 (20-40) % [place] % (Auto) 5.3 (2-11) % Eos % (Auto) 2.9 (0-4) % Baso % (Auto) 0.9 (0-2) % Lymph # (Auto) 1.7 (1.2-4.9) X10*3/uL [place] # (Auto) 0.2 (0.1-1.2) X10*3/uL Eos # (Auto) 0.1 (0.0-0.4) X10*3/uL Baso # (Auto) 0.0 (0.0-0.2) X10*3/uL Abs Immat Gran (auto) 0.02 (0.00-0.03) X10*3/uL Absolute Neuts (auto) 2.4 (2.0-8.3) x10*3/uL Absolute Nucleated RBC 0.000 (0.0-0.012) X10*3/uL Nucleated RBC % (auto) 0.0 (0.0-0.2) /100WBC PT 10.4 (10.0-13.1) SEC INR 0.9 (0.9-1.1) Sodium Cancelled Potassium Cancelled Chloride Cancelled Carbon Dioxide Cancelled Anion Gap Cancelled BUN Cancelled Creatinine Cancelled Estim Creat Clear Calc Cancelled Estimated GFR Cancelled Random Glucose Cancelled Calcium Cancelled Magnesium Cancelled Total Bilirubin Cancelled AST Cancelled ALT Cancelled Alkaline Phosphatase Cancelled Troponin I High Sens (<3.5-17.0) ng/L Total Protein Cancelled Albumin Cancelled Beta HCG, Quant mIU/mL Urine Color Urine Appearance Urine pH (5.0-8.0) Ur Specific [place] (1.005-1.025) Urine Protein (NEG-TRACE) MG/DL Urine Glucose (UA) (NEG) MG/DL Urine Ketones (NEG) MG/DL Urine Blood (NEG) Urine Nitrite (NEG) Ur Leukocyte Esterase (NEG) Urine RBC (0) /HPF Urine WBC (0-4) /HPF Ur Squamous Epith Cells /LPF Ur Renal Epithelial Cell /LPF Urine Bacteria /LPF Hyaline Casts /LPF Urine Mucus /LPF Salicylates Cancelled Urine Opiates Screen (Not Detect) Urine Fentanyl Screen (Not Detect) Acetaminophen Cancelled Ur Barbiturates Screen (Not Detect) Ur Phencyclidine Scrn (Not Detect) Ur Amphetamines Screen (Not Detect) U Benzodiazepines Scrn (Not Detect) Urine Cocaine Screen (Not Detect) U Marijuana (THC) Screen (Not Detect) Ethyl Alcohol mg/dL COVID-19 ([facility]) (Negative) COVID-19 Clin Com 06/05/22 06/05/22 06/05/22 Range/Units 23:10 23:10 23:39 WBC (4.8-10.8) X10*3/uL RBC (4.20-5.50) X10*6/uL Hgb (12.0-16.0) g/dl Hct (37.0-47.0) % MCV (80.0-98.0) fL MCH (27.0-33.0) pg MCHC (31.0-35.0) g/dl RDW (11.0-16.0) % Plt Count (160-400) X10*3/uL MPV (9.4-12.3) fL Immature Gran % (Auto) (0.0-0.4) % Neut % (Auto) (45-73) % Lymph % (Auto) (20-40) % [place] % (Auto) (2-11) % Eos % (Auto) (0-4) % Baso % (Auto) (0-2) % Lymph # (Auto) (1.2-4.9) X10*3/uL [place] # (Auto) (0.1-1.2) X10*3/uL Eos # (Auto) (0.0-0.4) X10*3/uL Baso # (Auto) (0.0-0.2) X10*3/uL Abs Immat Gran (auto) (0.00-0.03) X10*3/uL Absolute Neuts (auto) (2.0-8.3) x10*3/uL Absolute Nucleated RBC (0.0-0.012) X10*3/uL Nucleated RBC % (auto) (0.0-0.2) /100WBC PT (10.0-13.1) SEC INR (0.9-1.1) Sodium 144 Potassium 2.9 L D Chloride 108 Carbon Dioxide 19 L Anion Gap 20 BUN 9 D Creatinine 0.70 Estim Creat Clear Calc 107.4 Estimated GFR > 60 Random Glucose 96 Calcium 8.0 L Magnesium 1.5 L Total Bilirubin 1.4 H AST 214 H ALT 106 H Alkaline Phosphatase 504 H D Troponin I High Sens < 3.5 (<3.5-17.0) ng/L Total Protein 6.6 Albumin 3.8 Beta HCG, Quant < 2 mIU/mL Urine Color Urine Appearance Urine pH (5.0-8.0) Ur Specific [place] (1.005-1.025) Urine Protein (NEG-TRACE) MG/DL Urine Glucose (UA) (NEG) MG/DL Urine Ketones (NEG) MG/DL Urine Blood (NEG) Urine Nitrite (NEG) Ur Leukocyte Esterase (NEG) Urine RBC (0) /HPF Urine WBC (0-4) /HPF Ur Squamous Epith Cells /LPF Ur Renal Epithelial Cell /LPF Urine Bacteria /LPF Hyaline Casts /LPF Urine Mucus /LPF Salicylates < 5.0 L Urine Opiates Screen (Not Detect) Urine Fentanyl Screen (Not Detect) Acetaminophen < 1 Ur Barbiturates Screen (Not Detect) Ur Phencyclidine Scrn (Not Detect) Ur Amphetamines Screen (Not Detect) U Benzodiazepines Scrn (Not Detect) Urine Cocaine Screen (Not Detect) U Marijuana (THC) Screen (Not Detect) Ethyl Alcohol 419 H* mg/dL COVID-19 ([facility]) Negative (Negative) COVID-19 Clin Com See Note 06/05/22 06/05/22 Range/Units 23:39 23:39 WBC (4.8-10.8) X10*3/uL RBC (4.20-5.50) X10*6/uL Hgb (12.0-16.0) g/dl Hct (37.0-47.0) % MCV (80.0-98.0) fL MCH (27.0-33.0) pg MCHC (31.0-35.0) g/dl RDW (11.0-16.0) % Plt Count (160-400) X10*3/uL MPV (9.4-12.3) fL Immature Gran % (Auto) (0.0-0.4) % Neut % (Auto) (45-73) % Lymph % (Auto) (20-40) % [place] % (Auto) (2-11) % Eos % (Auto) (0-4) % Baso % (Auto) (0-2) % Lymph # (Auto) (1.2-4.9) X10*3/uL [place] # (Auto) (0.1-1.2) X10*3/uL Eos # (Auto) (0.0-0.4) X10*3/uL Baso # (Auto) (0.0-0.2) X10*3/uL Abs Immat Gran (auto) (0.00-0.03) X10*3/uL Absolute Neuts (auto) (2.0-8.3) x10*3/uL Absolute Nucleated RBC (0.0-0.012) X10*3/uL Nucleated RBC % (auto) (0.0-0.2) /100WBC PT (10.0-13.1) SEC INR (0.9-1.1) Sodium Potassium Chloride Carbon Dioxide Anion Gap BUN Creatinine Estim Creat Clear Calc Estimated GFR Random Glucose Calcium Magnesium Total Bilirubin AST ALT Alkaline Phosphatase Troponin I High Sens (<3.5-17.0) ng/L Total Protein Albumin Beta HCG, Quant mIU/mL Urine Color YELLOW Urine Appearance CLEAR Urine pH 6.5 (5.0-8.0) Ur Specific [place] <= 1.005 (1.005-1.025) Urine Protein TRACE (NEG-TRACE) MG/DL Urine Glucose (UA) NEG (NEG) MG/DL Urine Ketones NEG (NEG) MG/DL Urine Blood TRACE (NEG) Urine Nitrite NEG (NEG) Ur Leukocyte Esterase NEG (NEG) Urine RBC 1-4 (0) /HPF Urine WBC 1-4 (0-4) /HPF Ur Squamous Epith Cells 1+ /LPF Ur Renal Epithelial Cell 1+ /LPF Urine Bacteria 1+ /LPF Hyaline Casts 0-2 /LPF Urine Mucus 1+ /LPF Salicylates Urine Opiates Screen Not Detected (Not Detect) Urine Fentanyl Screen Not Detected (Not Detect) Acetaminophen Ur Barbiturates Screen POSITIVE H (Not Detect) Ur Phencyclidine Scrn Not Detected (Not Detect) Ur Amphetamines Screen Not Detected (Not Detect) U Benzodiazepines Scrn Not Detected (Not Detect) Urine Cocaine Screen Not Detected (Not Detect) U Marijuana (THC) Screen POSITIVE H (Not Detect) Ethyl Alcohol mg/dL COVID-19 ([facility]) (Negative) COVID-19 Clin Com ECG Data Attestation: I personally reviewed and interpreted this ECG as follows: Interpretation: Sinus tachycardia heart rate 117 beats per minute nerve interval normal axis no acute ST wave changes impression sinus tachycardia Critical Care Time Critical Care Time Critical Care Time: Yes Total Critical Care Time: 55 Attestation: I spent 55 minutes of critical care, with interventions, and assessments, Discharge Plan Discharge Clinical Impression: Alcoholic intoxication, Hypomagnesemia, Overdose, Acute hypokalemia Patient Disposition: Still a Patient Prescriptions: No Action docusate sodium [Colace] 100 mg capsule 100 mg PO DAILY 30 Days Qty: 30 1RF trazodone 50 mg tablet 50 mg PO BEDTIME Qty: 90 5RF albuterol sulfate 90 mcg/actuation HFA aerosol inhaler 2 puff inhalation Q4-6H PRN (Reason: for wheezing) Qty: 8.5 5RF (DME) blood pressure monitor Kit See Rx Instructions .ROUTE .MEDSUPPLY Qty: 1 0RF Rx Instructions: Automatic, Digital. Dx: I10. Daily As directed, 999 days/lifetime naltrexone 50 mg tablet 50 mg PO DAILY 14 Days Qty: 14 1RF Vaqta (PF) 50 unit/mL syringe 1 ml IM ONCE Qty: 1 0RF ondansetron HCl [Zofran] 4 mg tablet 4 mg PO Q8H PRN (Reason: nausea and vomiting) 30 Days Qty: 30 3RF olanzapine 2.5 mg tablet 2.5 mg PO DAILY Qty: 30 2RF tacrolimus 1 mg capsule 2 mg PO Q12H Label Comments: with 5 mg cap for total dose of 7 mg daily tacrolimus 5 mg capsule 5 mg PO Q12H Qty: 60 6RF (DME) cane Device See Rx Instructions .Route Qty: 1 0RF Rx Instructions: As directed cefpodoxime 200 mg tablet 200 mg PO Q12H 10 Days Qty: 20 0RF Rx Instructions: must administer with a meal/food hydrocortisone [Proctosol HC] 2.5 % cream with perineal applicator 1 appl MD BID-QID PRN (Reason: hemorrhoids) 14 Days Qty: 30 0RF polyethylene glycol 3350 [Miralax] 17 gram powder in packet 17 g PO DAILY 5 Days Qty: 5 0RF polyethylene glycol 3350 [Miralax] 17 gram powder in packet 17 g PO DAILY 14 Days Qty: 14 0RF disulfiram 500 mg tablet 500 mg PO DAILY Qty: 30 2RF diazepam [Valium] 5 mg tablet 5 mg PO TID PRN (Reason: anxiety) 14 Days Qty: 42 0RF amoxicillin 875 mg tablet 875 mg PO Q12H Qty: 14 1RF Rx Instructions: 1 refill to get her to her dentist appt Vivitrol 380 mg suspension,extended rel recon 380 mg IM Q4W 30 Days Qty: 1 5RF prednisone 20 mg tablet 20 mg PO DAILY
[2022-06-05] MEDS: Naloxone HCl 2 MG/2 ML SYRINGE IVPUSH (23:00)
[2022-06-05 23:16] LABS: MANUAL DIFF FLAG NO
[2022-06-05 23:20] LABS: Basophils Percent Auto 0.9 % (0-2); Eosinophils Absolute Auto 0.1 X10*3/uL (0.0-0.4); Eosinophils Percent Auto 2.9 % (0-4); Hemoglobin 13.1 g/dl (12.0-16.0); Imm Gran Abs Auto 0.02 X10*3/uL (0.00-0.03); Imm Gran Pct Auto 0.4 % (0.0-0.4); Lymphocytes Absolute Auto 1.7 X10*3/uL (1.2-4.9); Lymphocytes Percent Auto 37.2 % (20-40); Mean Corpuscular HGB Conc 35.4 g/dl (31.0-35.0); Mean Corpuscular Volume 96.1 fL (80.0-98.0); Mean Platelet Volume 9.6 fL (9.4-12.3); Monocytes Absolute Auto 0.2 X10*3/uL (0.1-1.2); Monocytes Percent Auto 5.3 % (2-11); Neutrophils Absolute Auto 2.4 x10*3/uL (2.0-8.3); Neutrophils Percent Auto 53.3 % (45-73); Platelet Count 158 X10*3/uL (160-400); Red Blood Count 3.85 X10*6/uL (4.20-5.50); Red Cell Distribution Width 15.9 % (11.0-16.0); White Blood Count 4.5 X10*3/uL (4.8-10.8)
[2022-06-05 23:23] VITALS: BP 144/99; PULSE 84; RESP 18; TEMP 36.6; O2SAT 98
[2022-06-05 23:29] LABS: INTERNATIONAL NORM RATIO 0.9 (0.9-1.1); Prothrombin Time 10.4 SEC (10.0-13.1)
[2022-06-05 23:38] LABS: Troponin-I High Sensitivity < 3.5 ng/L (<3.5-17.0)
--- NOTE | 2022-06-05 23:39 | PC.NURSE ---
pt only responding to painful stimuli, pt medicated with Narcan Iv. Iv placed, labs collected. Sensory Davis placed. Ekg completed. pt placed on bedside monitor. Will continue to monitor.
[2022-06-05 23:41] LABS: Acetaminophen LAB < 1 mcg/mL (<30); Alanine Aminotransferase 106 U/L (0-31); Albumin Level 3.8 g/dL (3.5-5.0); Alkaline Phosphatase 504 U/L (39-117); Anion Gap 20 (12-20); Aspartate Amino Transferase 214 U/L (5-31); Bilirubin Total 1.4 mg/dL (0.0-1.0); Blood Urea Nitrogen 9 mg/dL (9-16); Carbon Dioxide 19 mmol/L (22-29); Chloride 108 mmol/L (96-108); Creatinine Clr Calc Pharmacy 107.4; Estimated Glomerular Filt Rate > 60; Ethanol 419 mg/dL; Glucose Random 96 mg/dL (60-115); Magnesium 1.5 mg/dL (1.6-2.6); Potassium 2.9 mmol/L (3.3-5.1); Salicylate < 5.0 mg/dL (15-30); Sodium 144 mmol/L (135-145); Total Protein 6.6 g/dL (6.5-8.0)
[2022-06-05 23:45] LABS: HCG Quantitative < 2 mIU/mL
[2022-06-05] MEDS: 0.9 % Sodium Chloride 1,000 ML 999 ML IV (23:49)
--- NOTE | 2022-06-05 23:49 | PC.NURSE ---
Per MD Jessi - hold 5mg IV Valium at this time
[2022-06-05 23:56] LABS: Appearance Urine CLEAR; Color Urine YELLOW; Glucose Urine UA NEG (NEG); Leukocyte Esterase Urine NEG (NEG); Nitrite Urine NEG (NEG); PH 6.5 (5.0-8.0); Specific Gravity - Urine <= 1.005 (1.005-1.025); UACC Culture Trigger NO; Urine Blood TRACE (NEG); Urine Ketones NEG (NEG); Urine Protein TRACE MG/DL (NEG-TRACE)
[2022-06-06] VITALS (9 sets, daily range): BP systolic 82–106; BP diastolic 46–66; PULSE 76–91; RESP 14–21; TEMP 35.5–37.2; O2SAT 98–99
[2022-06-06 00:02] LABS: Amphetamine Screen Urine Not Detected (Not Detect); Barbiturates, Urine POSITIVE (Not Detect); Benzodiazepines Screen Urine Not Detected (Not Detect); Cannabinoid Screen Urine POSITIVE (Not Detect); Cocaine Screen Urine Not Detected (Not Detect); Fentanyl, urine Not Detected (Not Detect); Opiate Screen Urine Not Detected (Not Detect); Phencyclidine Screen Urine Not Detected (Not Detect)
[2022-06-06 00:03] LABS: COVID-19 Test Negative (Negative)
[2022-06-06 00:11] LABS: Bacteria Urine 1+ /LPF; Hyaline Casts Urine 0-2 /LPF; Mucus Urine 1+ /LPF; Renal Epithelial Cells Urine 1+ /LPF; Squamous Epithelial Cell Urine 1+ /LPF
--- NOTE | 2022-06-06 00:40 | PC.NURSE ---
Applying Sabien Nava to pt. b/c temp. is 95.7. MD Jessi aware
--- NOTE | 2022-06-06 00:49 | PC.NURSE ---
patient was change into hospital attire by myself and dmitriy pereira ,patient was put on bear huger by this pct per provider order .
[2022-06-06] MEDS: Magnesium Sulfate/H2O 2 GM/50 ML PIGGYBACK IV (01:13)
--- NOTE | 2022-06-06 01:31 | PC.NURSE ---
2mg Valium drawn up and wasted with Edith Whitehead RN. Wasted documented in Pyxis
[2022-06-06] MEDS: Potassium Chloride/H20 10 MEQ/100 ML PIGGYBACK 100 MEQ IV ×2 (01:36→02:49)
--- NOTE | 2022-06-06 01:51 | PC.NURSE ---
Spoke with Jennifer on poison control line. Reported toxicology and electrolytes to her. Jennifer recommends redraw of LFTs in the AM
--- NOTE | 2022-06-06 07:48 | PC.NURSE ---
Pt awake, oriented to person and place at this time. 99% on 2L NC at this time, O2 turned off by this RN. Fluids provided. Pt offers no complaints of pain at this time. Davis in place with dark urine, jaundice in appearance. Call hillman within reach, will continue to monitor.
--- NOTE | 2022-06-06 07:57 | PC.NURSE ---
Poison control called for update on pt, requesting repeat LFT's. made aware.
[2022-06-06 08:55] LABS: Alanine Aminotransferase 93 U/L (0-31); Albumin Level 3.3 g/dL (3.5-5.0); Alkaline Phosphatase 439 U/L (39-117); Anion Gap 18 (12-20); Aspartate Amino Transferase 191 U/L (5-31); Bilirubin Total 1.5 mg/dL (0.0-1.0); Blood Urea Nitrogen 8 mg/dL (9-16); Calcium 7.3 mg/dL (8.4-10.2); Carbon Dioxide 17 mmol/L (22-29); Chloride 110 mmol/L (96-108); Creatinine Clr Calc Pharmacy 110.6; Estimated Glomerular Filt Rate > 60; Glucose Random 86 mg/dL (60-115); Potassium 3.1 mmol/L (3.3-5.1); Sodium 142 mmol/L (135-145); Total Protein 5.5 g/dL (6.5-8.0)
--- NOTE | 2022-06-06 10:05 | PC.NURSE ---
Pt maintaining O2 sat on room air, asleep but wakes up intermittantly. Call hillman within reach, will continue to monitor.
--- NOTE | 2022-06-06 11:25 | PC.NURSE ---
Pt awake, agitated, denies SI/HI, states she was only trying to get high. Pt villatoro removed, IV removed. Ambulatory with steady gait, states her mom is coming to pick her up.
== END 2022-06-06 11:27 | disposition home or self-care (01) ==
PROVIDERS: Internal Medicine; Emergency Provider Emergency Medicine Emergency Medical Services
DX: F10.129 Alcohol abuse with intoxication, unspecified (principal); E83.42 Hypomagnesemia; E87.6 Hypokalemia; R00.0 Tachycardia, unspecified; Y90.8 Blood alcohol level of 240 mg/100 ml or more; Z20.822 Contact with and (suspected) exposure to COVID-19; Z79.899 Other long term (current) drug therapy; F17.210 Nicotine dependence, cigarettes, uncomplicated; Z71.41 Alcohol abuse counseling and surveillance of alcoholic
CPT/HCPCS: 36415; 71045; 80053; 80143; 80179; 80307; 81001; 82077; 83735; 84484; 84702; 85025; 85610; 87635; 93005; 96361; 96365; 96366; 96367; 96375; 99285; J3475

== ENCOUNTER → 2022-06-09 10:33 | Outpatient (BNVA) | payer MEDICARE, MEDICAID, SELFPAY | PROVIDERS: PCP Family Medicine; Visit Provider Internal Medicine | DX: F10.10 Alcohol abuse, uncomplicated (principal) | CPT/HCPCS: 99212 ==

== ENCOUNTER → 2022-06-13 13:38 | Outpatient (BNVA) | payer MEDICARE, MEDICAID, SELFPAY | PROVIDERS: Visit Provider Internal Medicine | DX: F10.10 Alcohol abuse, uncomplicated (principal) | CPT/HCPCS: 99212 ==

== ENCOUNTER 2022-07-11 13:33 | Emergency (ER) | payer MEDICARE, MEDICAID, SELFPAY ==
[2022-07-11 13:41] VITALS: BP 122/85; PULSE 88; O2SAT 100
[2022-07-11 13:52] VITALS: BP 113/88; PULSE 86; RESP 18; TEMP 36.9; O2SAT 100; BMI 21.7
--- NOTE | 2022-07-11 13:55 | ECG_ITS ---
Test Reason : abd pain Blood Pressure : / mmHG Vent. Rate : 086 BPM Atrial Rate : 086 BPM P-R Int : 138 ms QRS Dur : 076 ms QT Int : 394 ms P-R-T Axes : 017 043 043 degrees QTc Int : 471 ms Normal sinus rhythm Normal ECG When compared with ECG of 05-JUN-2022 22:31, Heart rate has decreased Referred By: Generic ED Physician Electronically Signed By:EMELIA MILLER
--- NOTE | 2022-07-11 14:30 | ED.GENADULT ---
HPI - General Adult General Chief complaint: Abdominal Pain Stated complaint: LT SIDED CP,LIVER PAIN, HX LIVER TRANSPLANT Time Seen by Provider: 07/11/22 14:25 Source: patient Mode of arrival: ambulatory Limitations: no limitations History of Present Illness HPI narrative: 32-year-old female with a complicated history of a liver transplant at 2020 at [facility], patient came in for abdominal pain, patient is still active alcohol drinker on a daily basis. Patient had recent admission to [facility] for what the patient reported acute renal failure patient needed an IV access in the left upper extremities now complaining of pain and swelling in the left upper extremities patient said she can not move her left upper extremities. Patient also been having abdominal pain stated that patient had a history of pancreatitis in the past. Patient also reported that she had 2 times black stool noted in the morning. Patient is also concern of alcohol withdrawal last drink was early this morning. Related Data Home Medications Medication Instructions Recorded Confirmed tacrolimus 1 mg capsule, 2 mg PO Q12H 01/16/22 04/24/22 immediate-release prednisone 20 mg tablet 20 mg PO DAILY 01/31/22 04/24/22 Previous Rx's Medication Instructions Recorded hepatitis A virus vaccine (PF) 50 1 ml IM ONCE #1 mL 03/31/21 unit/mL intramuscular syringe (Vaqta (PF)) docusate sodium 100 mg capsule 100 mg PO DAILY 30 days #30 caps 05/25/21 (Colace) ondansetron HCl 4 mg tablet 4 mg PO Q8H PRN nausea and 10/31/21 (Zofran) vomiting 1 month #30 tabs olanzapine 2.5 mg tablet 2.5 mg PO DAILY #30 tabs 12/12/21 cane #1 ea 01/16/22 tacrolimus 5 mg capsule, 5 mg PO Q12H #60 caps 01/16/22 immediate-release diazepam 5 mg tablet (Valium) 5 mg PO TID PRN anxiety 14 days 02/01/22 #42 tabs disulfiram 500 mg tablet 500 mg PO DAILY #30 tabs 02/01/22 naltrexone microspheres 380 mg 380 mg IM Q4W 30 days #1 ea 02/03/22 intramuscular suspension,extended release (Vivitrol) trazodone 50 mg tablet 50 mg PO BEDTIME #90 tabs 02/06/22 albuterol sulfate 90 mcg/actuation 2 puff inhalation Q4-6H PRN for 02/20/22 aerosol inhaler wheezing #8.5 ea amoxicillin 875 mg tablet 875 mg PO Q12H #14 tabs 03/02/22 cefpodoxime 200 mg tablet 200 mg PO Q12H 10 days #20 tabs 04/24/22 hydrocortisone 2.5 % topical cream 1 appl NE BID-QID PRN hemorrhoids 04/24/22 with perineal applicator 14 days #30 grams (Proctosol HC) polyethylene glycol 3350 17 gram 17 g PO DAILY 14 days #14 ea 04/24/22 oral powder packet (Miralax) polyethylene glycol 3350 17 gram 17 g PO DAILY 5 days #5 ea 04/24/22 oral powder packet (Miralax) blood pressure monitor #1 ea 05/26/22 naltrexone 50 mg tablet 50 mg PO DAILY 14 days #14 tabs 06/05/22 clonidine HCl 0.1 mg tablet 0.1 mg PO TID 7 days #21 tabs 06/13/22 hydroxyzine pamoate 25 mg capsule 25 mg PO TID PRN anxiety 7 days 06/13/22 (Vistaril) #21 caps Allergies Allergy/AdvReac Type Severity Reaction Status Date / Time acetaminophen [From Vicodin] Allergy Intermediate hives Verified 06/13/22 13:40 hydrocodone [From Vicodin] Allergy Intermediate hives Verified 06/13/22 13:40 tramadol Allergy Intermediate hives Verified 06/13/22 13:40 banana [BANANA] AdvReac Severe DIFFICULTY Verified 06/13/22 13:40 BREATHING seafood AdvReac Hives Verified 06/13/22 13:40 Review of Systems Review of Systems: All other systems are reviewed and are negative Constitutional: Reports as per HPI and Reports no additional constitutional complaints Eyes: Reports as per HPI and Reports no additional eye complaints Reports system reviewed and no additional complaints, except as documented Cardiovascular: Reports as per HPI and Reports no additional cardiovascular complaints Respiratory: Reports as per HPI and Reports no additional respiratory complaints Gastrointestinal: Reports as per HPI and Reports no additional gastrointestinal complaints Genitourinary: Reports no additional female genitourinary complaints Musculoskeletal: Reports no additional musculoskeletal complaints Skin/Breast: Reports system reviewed and no additional complaints, except as docu Psychiatric: Reports no additional psychiatric complaints Endocrine: Reports no additional endocrine complaints Hematologic/Lymphatic: Reports no additional hematologic/lymphatic complaints Allergic/Immunologic: Reports no additional allergic/immunologic complaints Reports system reviewed and no additional complaints, except as documented and Reports Abnormal speech present COUNTS INCLUDE 234 BEDS AT THE [facility] Past Medical History 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 Asthma CHF (congestive heart failure) Chiari malformation CVA (cerebral vascular accident) Depression Depression with anxiety GI bleed Hepatitis C Hypokalemia Liver failure Liver transplant planned NSVT (nonsustained ventricular tachycardia) Orthostatic hypotension Peptic ulcer disease Seizures Surgical History Gastric bypass status for obesity History of liver transplant Hx of cholecystectomy Family History Family History Father Liver failure Kidney failure History of heart attack Mother Diabetes HTN (hypertension) Social History Social History Household Members: Family Housing: House Do you presently have visiting nurse or other home services: No Unable to assess alcohol history related to: Refusing to respond Alcohol intake: former Patient Tobacco Use Status: Current everyday Tobacco user Tobacco use type: Cigarette Cigarette Packs Per Day: 0.5 Cigarettes Per Day: 10.0 Years Smoked: 12 e-Cigarette/Vaping Use: Never Used Second Hand Smoke Exposure: Yes Advance Directives: No service: No Current occupational status: disabled Cognitive needs: No Hearing needs: No Vision needs: No Physical Exam ED Vital Signs: Vital Signs - 24 hr 07/11/22 13:52 Temperature 98.4 F Pulse Rate 86 Respiratory Rate 18 Blood Pressure 113/88 Pulse Oximetry 100 Oxygen Delivery Method Room Air BMI result Body Mass Index 21.7 Vital signs have been reviewed as appeared to be correct. Blood pressure normal. Heart rate normal. Respiration rate normal. Temperature normal. Oxygen saturation normal. Appearance: Alert. Oriented X3. No acute distress. Head: Normal external exam. Normocephalic. Atraumatic. No Fernandez signs noted. No raccoon eyes noted Eyes: PERRLA. EOMI. Conjunctiva and sclera normal. Eyelids normal. ENT: TM's Normal. Pharynx normal. Uvula midline. Moist mucous membranes. No trismus noted. No drooling noted. No muffled voice noted. Neck: Normal inspection. Neck supple. FROM. No adenopathy. Thyroid Normal. No meningeal signs. No neck mass noted. CVS: Normal heart rate and rhythm. Heart sound normal. No murmurs noted. Pulses normal throughout. Respiratory: No respiratory distress. Painless inspiration. Breath sounds normal. No wheezes/rales/rhonchi noted. Chest nontender. No accessory muscle usage noted or decreased air movement noted. Abdomen: Soft , mild epigastric tenderness.. Bowel sounds normal in all 4 quadrants. No distention noted. No organomegaly noted. No visible injury noted. Rectum exam: Brown stool with no blood. No bleeding. Back: No CVA tenderness. Full range of motion noted. Skin: Skin warm and dry. Normal skin color. Normal skin turgor. No rashes/lesions/lacerations noted. Extremities: Left upper extremity is held in abduction position with painful abduction complete physical exam was not performed due to severe pain was postponeded after getting pain medication. Neuro: Oriented X 3. Cranial nerve exam: II-XII are grossly intact No motor deficit. No sensory deficit. Reflexes normal. Course Course Course Narrative: Patient left the ED before full evaluation, blood workup was not done. Discharge Plan Discharge Clinical Impression: Alcoholic cirrhosis of liver Patient Disposition: Elopement Prescriptions: No Action docusate sodium [Colace] 100 mg capsule 100 mg PO DAILY 30 Days Qty: 30 1RF trazodone 50 mg tablet 50 mg PO BEDTIME Qty: 90 5RF albuterol sulfate 90 mcg/actuation HFA aerosol inhaler 2 puff inhalation Q4-6H PRN (Reason: for wheezing) Qty: 8.5 5RF (DME) blood pressure monitor Kit See Rx Instructions .ROUTE .MEDSUPPLY Qty: 1 0RF Rx Instructions: Automatic, Digital. Dx: I10. Daily As directed, 999 days/lifetime naltrexone 50 mg tablet 50 mg PO DAILY 14 Days Qty: 14 1RF Vaqta (PF) 50 unit/mL syringe 1 ml IM ONCE Qty: 1 0RF ondansetron HCl [Zofran] 4 mg tablet 4 mg PO Q8H PRN (Reason: nausea and vomiting) 30 Days Qty: 30 3RF olanzapine 2.5 mg tablet 2.5 mg PO DAILY Qty: 30 2RF tacrolimus 1 mg capsule 2 mg PO Q12H Label Comments: with 5 mg cap for total dose of 7 mg daily tacrolimus 5 mg capsule 5 mg PO Q12H Qty: 60 6RF (DME) cane Device See Rx Instructions .Route Qty: 1 0RF Rx Instructions: As directed cefpodoxime 200 mg tablet 200 mg PO Q12H 10 Days Qty: 20 0RF Rx Instructions: must administer with a meal/food hydrocortisone [Proctosol HC] 2.5 % cream with perineal applicator 1 appl NE BID-QID PRN (Reason: hemorrhoids) 14 Days Qty: 30 0RF polyethylene glycol 3350 [Miralax] 17 gram powder in packet 17 g PO DAILY 5 Days Qty: 5 0RF polyethylene glycol 3350 [Miralax] 17 gram powder in packet 17 g PO DAILY 14 Days Qty: 14 0RF disulfiram 500 mg tablet 500 mg PO DAILY Qty: 30 2RF diazepam [Valium] 5 mg tablet 5 mg PO TID PRN (Reason: anxiety) 14 Days Qty: 42 0RF amoxicillin 875 mg tablet 875 mg PO Q12H Qty: 14 1RF Rx Instructions: 1 refill to get her to her dentist appt Vivitrol 380 mg suspension,extended rel recon 380 mg IM Q4W 30 Days Qty: 1 5RF prednisone 20 mg tablet 20 mg PO DAILY clonidine HCl 0.1 mg tablet 0.1 mg PO TID 7 Days Qty: 21 1RF hydroxyzine pamoate [Vistaril] 25 mg capsule 25 mg PO TID PRN (Reason: anxiety) 7 Days Qty: 21 0RF Interventions: ED Discharge Assessment Last Done: 07/11/22 15:01 Discharge Date/Time: 07/11/22 15:01
--- NOTE | 2022-07-11 14:37 | PC.NURSE ---
pt not found at bedside, pt belongings gone and hospital attire found on the stretcher
== END 2022-07-11 15:01 | disposition left against medical advice (07) ==
PROVIDERS: Emergency Provider Emergency Medicine
DX: K70.30 Alcoholic cirrhosis of liver without ascites (principal); R07.89 Other chest pain; F17.210 Nicotine dependence, cigarettes, uncomplicated; Z79.899 Other long term (current) drug therapy; Z71.6 Tobacco abuse counseling
CPT/HCPCS: 93005; 99283

== ENCOUNTER 2022-07-26 11:59 | Emergency (ER) | payer MEDICARE, MEDICAID, SELFPAY | END 2022-07-26 13:51 | disposition left against medical advice (07) | PROVIDERS: Emergency Provider Emergency Medicine | DX: F10.10 Alcohol abuse, uncomplicated (principal) ==

== ENCOUNTER 2022-07-27 10:17 | Emergency (ER) | payer MEDICARE, MEDICAID, SELFPAY ==
[2022-07-27 10:19] VITALS: BP 120/81; PULSE 102; RESP 20; TEMP 36.9; O2SAT 98; BMI 22.8
[2022-07-27 10:45] LABS: MANUAL DIFF FLAG NO
[2022-07-27 10:46] LABS: Basophils Absolute Auto 0.1 X10*3/uL (0.0-0.2); Basophils Percent Auto 1.3 % (0-2); Eosinophils Absolute Auto 0.1 X10*3/uL (0.0-0.4); Eosinophils Percent Auto 1.4 % (0-4); Hemoglobin 13.1 g/dl (12.0-16.0); Imm Gran Abs Auto 0.03 X10*3/uL (0.00-0.03); Imm Gran Pct Auto 0.5 % (0.0-0.4); Lymphocytes Absolute Auto 1.4 X10*3/uL (1.2-4.9); Lymphocytes Percent Auto 22.8 % (20-40); Mean Corpuscular HGB Conc 34.5 g/dl (31.0-35.0); Mean Corpuscular Hemoglobin 36.1 pg (27.0-33.0); Mean Corpuscular Volume 104.7 fL (80.0-98.0); Monocytes Absolute Auto 0.6 X10*3/uL (0.1-1.2); Monocytes Percent Auto 8.9 % (2-11); Neutrophils Absolute Auto 4.1 x10*3/uL (2.0-8.3); Neutrophils Percent Auto 65.1 % (45-73); Platelet Count 266 X10*3/uL (160-400); Red Blood Count 3.63 X10*6/uL (4.20-5.50); Red Cell Distribution Width 14.6 % (11.0-16.0); White Blood Count 6.3 X10*3/uL (4.8-10.8)
[2022-07-27 11:05] LABS: Alanine Aminotransferase 74 U/L (0-31); Albumin Level 3.6 g/dL (3.5-5.0); Alkaline Phosphatase 662 U/L (39-117); Anion Gap 20 (12-20); Aspartate Amino Transferase 128 U/L (5-31); Bilirubin Direct 0.8 mg/dL (0.0-0.5); Bilirubin Total 1.5 mg/dL (0.0-1.0); Blood Urea Nitrogen 8 mg/dL (9-16); Calcium 8.6 mg/dL (8.4-10.2); Carbon Dioxide 21 mmol/L (22-29); Chloride 104 mmol/L (96-108); Creatinine Clr Calc Pharmacy 103.5; Estimated Glomerular Filt Rate > 60; Glucose Random 153 mg/dL (60-115); Lipase 20 U/L (8-78); Potassium 3.6 mmol/L (3.3-5.1); Sodium 141 mmol/L (135-145); Total Protein 6.7 g/dL (6.5-8.0)
== END 2022-07-27 13:38 | disposition left against medical advice (07) ==
PROVIDERS: Emergency Provider Emergency Medicine; PCP Hospitalist
DX: R56.9 Unspecified convulsions (principal); F10.239 Alcohol dependence with withdrawal, unspecified; Y90.9 Presence of alcohol in blood, level not specified; Z79.899 Other long term (current) drug therapy
CPT/HCPCS: 36415; 80048; 80076; 83690; 85025; 99281; 99283

== ENCOUNTER 2022-07-27 13:14 | Emergency (ER) | payer MEDICARE, MEDICAID, SELFPAY ==
--- NOTE | 2022-07-27 15:40 | MHC.RECOVSUP ---
Recovery Support note: This sports writer received information from the CARE Team that a medical office was interested in directly admitting a patient for detox. This sports writer contacted Alana at [facility] to discuss admission process, specifically that patient would need to go through the emergency department. This sports writer also spoke with Kim, a behavioral health clinician at the practice, to discuss this. This sports writer was contacted by the patient directly to discuss expectations and the emergency department process. Patient was transported via EMS on 07/26 and sent to the pod as no medical beds were available. Patient did not want to be in the pod and left the hospital. This sports writer reassured patient that she would not be placed in the pod if she were to return to the hospital. Informed full charge bookkeeper that patient would be presented and the recommendation to not have her go to the pod. Patient came as a walk in and was met by this sports writer in the waiting room. Patient called this sports writer again stating that she was going to leave and call EMS. This sports writer encouraged patient to continue to wait as she already had been triaged and had labs done. Patient presented via EMS and was triaged to the waiting room and left without being seen.
--- NOTE | 2022-07-27 15:51 | PC.NURSE ---
Per Pt experience ambassador: Pt LWT'd after being sent to the waiting room from ambulance. At current time: pt is presumed LWT and did not answer when called to triage x 3
== END 2022-07-27 16:36 | disposition left against medical advice (07) ==
PROVIDERS: Emergency Provider Emergency Medicine; PCP Hospitalist
DX: R10.9 Unspecified abdominal pain (principal)

== ENCOUNTER 2022-07-28 23:15 | Emergency (ER) | payer MEDICARE, MEDICAID, SELFPAY ==
[2022-07-28 23:30] VITALS: BP 120/74; PULSE 94; RESP 16; TEMP 36.4; O2SAT 97; BMI 22.3
[2022-07-29] LABS: MANUAL DIFF FLAG NO
[2022-07-29 00:01] LABS: Basophils Absolute Auto 0.1 X10*3/uL (0.0-0.2); Basophils Percent Auto 1.5 % (0-2); Eosinophils Absolute Auto 0.1 X10*3/uL (0.0-0.4); Eosinophils Percent Auto 1.4 % (0-4); Hematocrit 38.2 % (37.0-47.0); Hemoglobin 13.3 g/dl (12.0-16.0); Imm Gran Abs Auto 0.02 X10*3/uL (0.00-0.03); Imm Gran Pct Auto 0.3 % (0.0-0.4); Lymphocytes Percent Auto 30.6 % (20-40); Mean Corpuscular HGB Conc 34.8 g/dl (31.0-35.0); Mean Corpuscular Hemoglobin 35.8 pg (27.0-33.0); Monocytes Absolute Auto 0.4 X10*3/uL (0.1-1.2); Monocytes Percent Auto 5.5 % (2-11); Neutrophils Percent Auto 60.7 % (45-73); Platelet Count 285 X10*3/uL (160-400); Red Blood Count 3.71 X10*6/uL (4.20-5.50); Red Cell Distribution Width 14.5 % (11.0-16.0); White Blood Count 6.5 X10*3/uL (4.8-10.8)
[2022-07-29 00:50] LABS: Alanine Aminotransferase 79 U/L (0-31); Albumin Level 3.7 g/dL (3.5-5.0); Alkaline Phosphatase 673 U/L (39-117); Anion Gap 20 (12-20); Aspartate Amino Transferase 145 U/L (5-31); Bilirubin Direct 0.8 mg/dL (0.0-0.5); Bilirubin Total 1.3 mg/dL (0.0-1.0); Blood Urea Nitrogen 6 mg/dL (9-16); Calcium 8.7 mg/dL (8.4-10.2); Carbon Dioxide 23 mmol/L (22-29); Chloride 104 mmol/L (96-108); Estimated Glomerular Filt Rate > 60; Glucose Random 105 mg/dL (60-115); Lipase 11 U/L (8-78); Potassium 3.2 mmol/L (3.3-5.1); Sodium 144 mmol/L (135-145); Total Protein 6.9 g/dL (6.5-8.0)
[2022-07-29 01:00] LABS: Lactic Acid 2.3 mmol/L (0.5-2.0)
[2022-07-29 01:58] LABS: Reflex Lactate? Lactic Acid Added
== END 2022-07-29 02:29 | disposition left against medical advice (07) ==
PROVIDERS: Emergency Provider Emergency Medicine; PCP Family Medicine
DX: R10.9 Unspecified abdominal pain (principal); Z94.4 Liver transplant status
CPT/HCPCS: 36415; 80048; 80076; 83605; 83690; 85025; 87040; 99281; 99283

== ENCOUNTER 2022-07-31 19:17 | Emergency (ER) | payer MEDICARE, MEDICAID, SELFPAY ==
[2022-07-31 19:53] VITALS: BP 92/56; PULSE 86; RESP 16; TEMP 36.7; O2SAT 99; BMI 20.9
[2022-07-31 19:58] VITALS: BP 131/93; O2SAT 98
[2022-07-31 20:15] VITALS: BP 101/74
--- NOTE | 2022-07-31 20:27 | ED.ALCOHOL ---
HPI - Alcohol General Chief Complaint: ETOH/Substance Use Stated Complaint: N/V Time Seen by Provider: 07/31/22 20:17 Source: patient and EMS Mode of arrival: EMS Limitations: no limitations History of Present Illness HPI narrative: 31-year-old female presenting to the emergency department by EMS with abdominal pain and vomiting. Patient is a chronic alcoholic and status post liver transplant, patient still actively abusing alcohol, patient did not drink today and concerned about seizures that she get from withdrawing, patient declined any fever or chills. Patient was in the emergency department earlier and patient typically walked out before full evaluation and treatment. Related Data Home Medications Medication Instructions Recorded Confirmed tacrolimus 1 mg capsule, 2 mg PO Q12H 01/16/22 04/24/22 immediate-release prednisone 20 mg tablet 20 mg PO DAILY 01/31/22 04/24/22 Previous Rx's Medication Instructions Recorded docusate sodium 100 mg capsule 100 mg PO DAILY 30 days #30 caps 05/25/21 (Colace) ondansetron HCl 4 mg tablet 4 mg PO Q8H PRN nausea and 10/31/21 (Zofran) vomiting 1 month #30 tabs olanzapine 2.5 mg tablet 2.5 mg PO DAILY #30 tabs 12/12/21 cane #1 ea 01/16/22 tacrolimus 5 mg capsule, 5 mg PO Q12H #60 caps 01/16/22 immediate-release diazepam 5 mg tablet (Valium) 5 mg PO TID PRN anxiety 14 days 02/01/22 #42 tabs disulfiram 500 mg tablet 500 mg PO DAILY #30 tabs 02/01/22 naltrexone microspheres 380 mg 380 mg IM Q4W 30 days #1 ea 02/03/22 intramuscular suspension,extended release (Vivitrol) trazodone 50 mg tablet 50 mg PO BEDTIME #90 tabs 02/06/22 albuterol sulfate 90 mcg/actuation 2 puff inhalation Q4-6H PRN for 02/20/22 aerosol inhaler wheezing #8.5 ea hydrocortisone 2.5 % topical cream 1 appl PA BID-QID PRN hemorrhoids 04/24/22 with perineal applicator 14 days #30 grams (Proctosol HC) polyethylene glycol 3350 17 gram 17 g PO DAILY 14 days #14 ea 04/24/22 oral powder packet (Miralax) blood pressure monitor #1 ea 05/26/22 naltrexone 50 mg tablet 50 mg PO DAILY 14 days #14 tabs 06/05/22 clonidine HCl 0.1 mg tablet 0.1 mg PO TID 7 days #21 tabs 06/13/22 hydroxyzine pamoate 25 mg capsule 25 mg PO TID PRN anxiety 7 days 06/13/22 (Vistaril) #21 caps Allergies Allergy/AdvReac Type Severity Reaction Status Date / Time acetaminophen [From Vicodin] Allergy Intermediate hives Verified 07/26/22 11:12 hydrocodone [From Vicodin] Allergy Intermediate hives Verified 07/26/22 11:12 tramadol Allergy Intermediate hives Verified 07/26/22 11:12 banana [BANANA] AdvReac Severe DIFFICULTY Verified 07/26/22 11:12 BREATHING seafood AdvReac Hives Verified 07/26/22 11:12 Review of Systems Review of Systems: All other systems are reviewed and are negative Constitutional: Reports as per HPI and Reports no additional constitutional complaints Eyes: Reports as per HPI and Reports no additional eye complaints Reports system reviewed and no additional complaints, except as documented Cardiovascular: Reports as per HPI and Reports no additional cardiovascular complaints Respiratory: Reports as per HPI and Reports no additional respiratory complaints Gastrointestinal: Reports as per HPI and Reports no additional gastrointestinal complaints Genitourinary: Reports no additional female genitourinary complaints Musculoskeletal: Reports no additional musculoskeletal complaints Skin/Breast: Reports system reviewed and no additional complaints, except as docu Psychiatric: Reports no additional psychiatric complaints Endocrine: Reports no additional endocrine complaints Hematologic/Lymphatic: Reports no additional hematologic/lymphatic complaints Allergic/Immunologic: Reports no additional allergic/immunologic complaints Reports system reviewed and no additional complaints, except as documented and Reports Abnormal speech present [facility] Past Medical History 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 Asthma CHF (congestive heart failure) Chiari malformation CVA (cerebral vascular accident) Depression Depression with anxiety GI bleed Hepatitis C Hypokalemia Liver failure Liver transplant planned NSVT (nonsustained ventricular tachycardia) Orthostatic hypotension Peptic ulcer disease Seizures Surgical History Gastric bypass status for obesity History of liver transplant Hx of cholecystectomy Family History Family History Father Liver failure Kidney failure History of heart attack Mother Diabetes HTN (hypertension) Social History Social History Household Members: Family Housing: House Do you presently have visiting nurse or other home services: No Unable to assess alcohol history related to: Refusing to respond Alcohol intake: former Patient Tobacco Use Status: Current everyday Tobacco user Tobacco use type: Cigarette Cigarette Packs Per Day: 0.5 Cigarettes Per Day: 10.0 Years Smoked: 12 e-Cigarette/Vaping Use: Never Used Second Hand Smoke Exposure: Yes Advance Directives: Yes Advance Directives on File: Yes Advance Directives Date on File: 07/27/22 service: No Current occupational status: disabled Cognitive needs: No Hearing needs: No Vision needs: No Physical Exam ED Vital Signs: Vital Signs - 24 hr 07/31/22 19:53 07/31/22 20:15 Temperature 98.1 F Pulse Rate 86 Respiratory Rate 16 Blood Pressure 92/56 L 101/74 Pulse Oximetry 99 Oxygen Delivery Method Room Air BMI result Body Mass Index 20.9 Vital signs have been reviewed as appeared to be correct. Blood pressure normal. Heart rate normal. Respiration rate normal. Temperature normal. Oxygen saturation normal. Appearance: Alert. Oriented X3. No acute distress. Head: Normal external exam. Normocephalic. Atraumatic. No Fernandez signs noted. No raccoon eyes noted Eyes: PERRLA. EOMI. Conjunctiva and sclera normal. Eyelids normal. ENT: TM's Normal. Pharynx normal. Uvula midline. Moist mucous membranes. No trismus noted. No drooling noted. No muffled voice noted. Neck: Normal inspection. Neck supple. FROM. No adenopathy. Thyroid Normal. No meningeal signs. No neck mass noted. CVS: Normal heart rate and rhythm. Heart sound normal. No murmurs noted. Pulses normal throughout. Respiratory: No respiratory distress. Painless inspiration. Breath sounds normal. No wheezes/rales/rhonchi noted. Chest nontender. No accessory muscle usage noted or decreased air movement noted. Abdomen: Soft and nontender. Bowel sounds normal in all 4 quadrants. No distention noted. No organomegaly noted. No visible injury noted. Back: No CVA tenderness. Full range of motion noted. Skin: Skin warm and dry. Normal skin color. Normal skin turgor. No rashes/lesions/lacerations noted. Extremities: No lower extremity edema. Extremities exhibit normal range of motion. Extremities nontender. Neuro: Oriented X 3. Cranial nerve exam: II-XII are grossly intact No motor deficit. No sensory deficit. Reflexes normal. Course Course Course Narrative: Patient had pseudo-seizure in the emergency department, no postictal, no tongue bite, patient was able to have a full conversation after the seizure. Patient had inappropriate abusive language with the staff ended up that the patient left before for full evaluation. Discharge Plan Discharge Clinical Impression: Alcoholic cirrhosis of liver, Alcohol abuse Patient Disposition: Elopement Prescriptions: No Action docusate sodium [Colace] 100 mg capsule 100 mg PO DAILY 30 Days Qty: 30 1RF trazodone 50 mg tablet 50 mg PO BEDTIME Qty: 90 5RF albuterol sulfate 90 mcg/actuation HFA aerosol inhaler 2 puff inhalation Q4-6H PRN (Reason: for wheezing) Qty: 8.5 5RF (DME) blood pressure monitor Kit See Rx Instructions .ROUTE .MEDSUPPLY Qty: 1 0RF Rx Instructions: Automatic, Digital. Dx: I10. Daily As directed, 999 days/lifetime naltrexone 50 mg tablet 50 mg PO DAILY 14 Days Qty: 14 1RF ondansetron HCl [Zofran] 4 mg tablet 4 mg PO Q8H PRN (Reason: nausea and vomiting) 30 Days Qty: 30 3RF olanzapine 2.5 mg tablet 2.5 mg PO DAILY Qty: 30 2RF tacrolimus 1 mg capsule 2 mg PO Q12H Label Comments: with 5 mg cap for total dose of 7 mg daily tacrolimus 5 mg capsule 5 mg PO Q12H Qty: 60 6RF (DME) cane Device See Rx Instructions .Route Qty: 1 0RF Rx Instructions: As directed hydrocortisone [Proctosol HC] 2.5 % cream with perineal applicator 1 appl PA BID-QID PRN (Reason: hemorrhoids) 14 Days Qty: 30 0RF polyethylene glycol 3350 [Miralax] 17 gram powder in packet 17 g PO DAILY 14 Days Qty: 14 0RF disulfiram 500 mg tablet 500 mg PO DAILY Qty: 30 2RF diazepam [Valium] 5 mg tablet 5 mg PO TID PRN (Reason: anxiety) 14 Days Qty: 42 0RF Vivitrol 380 mg suspension,extended rel recon 380 mg IM Q4W 30 Days Qty: 1 5RF prednisone 20 mg tablet 20 mg PO DAILY clonidine HCl 0.1 mg tablet 0.1 mg PO TID 7 Days Qty: 21 1RF hydroxyzine pamoate [Vistaril] 25 mg capsule 25 mg PO TID PRN (Reason: anxiety) 7 Days Qty: 21 0RF
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
== END 2022-07-31 21:05 | disposition left against medical advice (07) ==
PROVIDERS: Emergency Provider Emergency Medicine
DX: K70.30 Alcoholic cirrhosis of liver without ascites (principal); F10.10 Alcohol abuse, uncomplicated; Y90.9 Presence of alcohol in blood, level not specified; K70.10 Alcoholic hepatitis without ascites; Z98.84 Bariatric surgery status; Z94.4 Liver transplant status; Z90.49 Acquired absence of other specified parts of digestive tract
CPT/HCPCS: 99281; 99282

== ENCOUNTER 2022-08-22 16:13 | Emergency (ER) | payer MEDICARE, MEDICAID, SELFPAY ==
--- NOTE | 2022-08-22 16:45 | ECG_ITS ---
Test Reason : ABD PAIN Blood Pressure : / mmHG Vent. Rate : 094 BPM Atrial Rate : 094 BPM P-R Int : 134 ms QRS Dur : 076 ms QT Int : 370 ms P-R-T Axes : 027 045 047 degrees QTc Int : 462 ms Normal sinus rhythm RSR' or QR pattern in V1 suggests right ventricular conduction delay Otherwise normal ECG When compared with ECG of 11-JUL-2022 14:01, No significant change was found Referred By: Fara Townsend Electronically Signed By:MOI GARCIA MD
[2022-08-22 16:47] VITALS: BP 111/75; PULSE 116; RESP 20; TEMP 36.2; O2SAT 98; BMI 19.0
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
[2022-08-22] MEDS: LORazepam 1 MG TABLET 2 MG PO (17:42)
[2022-08-22 17:51] LABS: MANUAL DIFF FLAG NO
[2022-08-22 17:53] LABS: Basophils Absolute Auto 0.1 X10*3/uL (0.0-0.2); Basophils Percent Auto 1.5 % (0-2); Eosinophils Absolute Auto 0.1 X10*3/uL (0.0-0.4); Eosinophils Percent Auto 1.1 % (0-4); Hematocrit 36.1 % (37.0-47.0); Hemoglobin 12.2 g/dl (12.0-16.0); Imm Gran Abs Auto 0.07 X10*3/uL (0.00-0.03); Imm Gran Pct Auto 0.9 % (0.0-0.4); Lymphocytes Absolute Auto 2.5 X10*3/uL (1.2-4.9); Mean Corpuscular HGB Conc 33.8 g/dl (31.0-35.0); Mean Corpuscular Hemoglobin 36.3 pg (27.0-33.0); Mean Corpuscular Volume 107.4 fL (80.0-98.0); Monocytes Absolute Auto 0.3 X10*3/uL (0.1-1.2); Monocytes Percent Auto 3.8 % (2-11); Neutrophils Absolute Auto 4.8 x10*3/uL (2.0-8.3); Neutrophils Percent Auto 60.7 % (45-73); Platelet Count 265 X10*3/uL (160-400); Red Blood Count 3.36 X10*6/uL (4.20-5.50); Red Cell Distribution Width 15.4 % (11.0-16.0); White Blood Count 7.9 X10*3/uL (4.8-10.8)
[2022-08-22 17:58] LABS: Appearance Urine Clear; Color Urine Yellow; Glucose Urine UA Negative (Negative); Leukocyte Esterase Urine Negative (Negative); Nitrite Urine Negative (Negative); Specific Gravity - Urine <= 1.005 (1.005-1.025); Urine Blood Negative (Negative); Urine Ketones Negative (Negative); Urine Protein Negative (Neg-Trace)
[2022-08-22 17:58] LABS: INTERNATIONAL NORM RATIO 0.9 (0.9-1.1); Prothrombin Time 10.2 SEC (10.0-13.1)
[2022-08-22 18:05] LABS: COVID-19 Test Negative (Negative); Ethanol 409 mg/dL; IDNOW Serial# 16C4AD1C
[2022-08-22 18:06] LABS: Lactic Acid 2.1 mmol/L (0.5-2.0)
[2022-08-22 18:11] LABS: B Type Natriuretic Peptide < 10 pg/mL (<100)
[2022-08-22 18:12] LABS: Alanine Aminotransferase 93 U/L (0-31); Albumin Level 3.5 g/dL (3.5-5.0); Alkaline Phosphatase 631 U/L (39-117); Anion Gap 18 (12-20); Aspartate Amino Transferase 212 U/L (5-31); Bilirubin Direct 1.5 mg/dL (0.0-0.5); Bilirubin Total 2.1 mg/dL (0.0-1.0); Blood Urea Nitrogen 3 mg/dL (9-16); Calcium 8.6 mg/dL (8.4-10.2); Carbon Dioxide 24 mmol/L (22-29); Chloride 110 mmol/L (96-108); Creatinine Clr Calc Pharmacy 112.9; Estimated Glomerular Filt Rate > 60; Glucose Random 107 mg/dL (60-115); Lipase 34 U/L (8-78); Magnesium 1.6 mg/dL (1.6-2.6); Potassium 3.5 mmol/L (3.3-5.1); Sodium 148 mmol/L (135-145); Total Protein 6.6 g/dL (6.5-8.0); Troponin-I High Sensitivity < 3.5 ng/L (<3.5-17.0)
[2022-08-22 18:12] LABS: Amphetamine Screen Urine Not Detected (Not Detect); Barbiturates, Urine POSITIVE (Not Detect); Benzodiazepines Screen Urine POSITIVE (Not Detect); Cannabinoid Screen Urine POSITIVE (Not Detect); Cocaine Screen Urine Not Detected (Not Detect); Fentanyl, urine Not Detected (Not Detect); Opiate Screen Urine Not Detected (Not Detect); Phencyclidine Screen Urine Not Detected (Not Detect)
[2022-08-22 18:14] LABS: HCG Quantitative < 2 mIU/mL
[2022-08-22] MEDS: diphenhydrAMINE HCL 50 MG/ML VIAL IM (18:29)
[2022-08-22] MEDS: Haloperidol Lactate 5 MG/ML VIAL IM (18:29)
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
--- NOTE | 2022-08-22 18:32 | MHC.RECOVSUP ---
? Reason for consult:Recovery Support o Current location: ED 22H o Identified substance use concern: AUD? - Support ? ?Intervention:Security ? Additional information:?I wasn't able to see this patient due to her being combative, vulgar, unapproachable and under the supervision of security at this time.
[2022-08-22 19:30] VITALS: BP 115/73; PULSE 70; RESP 18; TEMP 36.8; O2SAT 97
[2022-08-22 19:48] LABS: Reflex Lactate? Lactic Acid Added
[2022-08-22 20:56] VITALS: BP 103/64; PULSE 89; RESP 18; TEMP 36; O2SAT 100
--- NOTE | 2022-08-22 21:40 | PC.NURSE ---
This charge nurse informed provider Dr. Townsend that patient want to leave, pt able to answer questions appropriately and with a steady gait. Security present to confirm pt okay to leave with a safe ride.
== END 2022-08-22 22:22 | disposition home or self-care (01) ==
PROVIDERS: Emergency Provider Emergency Medicine; PCP Hospitalist
DX: F10.129 Alcohol abuse with intoxication, unspecified (principal); Y90.8 Blood alcohol level of 240 mg/100 ml or more; R10.13 Epigastric pain; R06.02 Shortness of breath; F17.210 Nicotine dependence, cigarettes, uncomplicated; Z20.822 Contact with and (suspected) exposure to COVID-19; Z79.899 Other long term (current) drug therapy; Z71.6 Tobacco abuse counseling
CPT/HCPCS: 36415; 80048; 80076; 80307; 81003; 82077; 83605; 83690; 83735; 83880; 84484; 84702; 85025; 85610; 87635; 93005; 96372; 99283; 99285; J1200

== ENCOUNTER 2022-08-23 12:13 | Outpatient (REF) | payer MEDICARE, MEDICAID, SELFPAY ==
[2022-08-23 14:34] LABS: Ethanol 233 mg/dL
== END 2022-08-23 12:14 | disposition home or self-care (01) ==
LOC: HO.WFDLDS 12:13
PROVIDERS: Visit Provider Hospitalist
DX: Z13.89 Encounter for screening for other disorder (principal)
CPT/HCPCS: 36415; 82077

== ENCOUNTER 2022-08-23 14:43 | Emergency (ER) | payer MEDICARE, MEDICAID, SELFPAY ==
[2022-08-23 16:29] VITALS: BP 104/69; PULSE 106; RESP 18; TEMP 36.6; O2SAT 100; BMI 22.6
--- NOTE | 2022-08-23 16:38 | PC.NURSE ---
Triage CIWA:2
[2022-08-23 21:52] LABS: MANUAL DIFF FLAG NO
[2022-08-23 21:57] LABS: Basophils Absolute Auto 0.1 X10*3/uL (0.0-0.2); Eosinophils Absolute Auto 0.1 X10*3/uL (0.0-0.4); Eosinophils Percent Auto 1.7 % (0-4); Hematocrit 32.6 % (37.0-47.0); Hemoglobin 10.9 g/dl (12.0-16.0); Imm Gran Abs Auto 0.05 X10*3/uL (0.00-0.03); Imm Gran Pct Auto 0.6 % (0.0-0.4); Lymphocytes Absolute Auto 2.4 X10*3/uL (1.2-4.9); Lymphocytes Percent Auto 30.6 % (20-40); Mean Corpuscular HGB Conc 33.4 g/dl (31.0-35.0); Mean Corpuscular Hemoglobin 36.5 pg (27.0-33.0); Mean Platelet Volume 8.8 fL (9.4-12.3); Monocytes Absolute Auto 0.4 X10*3/uL (0.1-1.2); Monocytes Percent Auto 4.5 % (2-11); Neutrophils Absolute Auto 4.8 x10*3/uL (2.0-8.3); Neutrophils Percent Auto 61.6 % (45-73); Platelet Count 227 X10*3/uL (160-400); Red Blood Count 2.99 X10*6/uL (4.20-5.50); Red Cell Distribution Width 15.6 % (11.0-16.0); White Blood Count 7.8 X10*3/uL (4.8-10.8)
[2022-08-23 22:10] LABS: Ethanol 283 mg/dL
[2022-08-23 22:15] LABS: Alanine Aminotransferase 75 U/L (0-31); Albumin Level 3.3 g/dL (3.5-5.0); Alkaline Phosphatase 561 U/L (39-117); Anion Gap 15 (12-20); Aspartate Amino Transferase 152 U/L (5-31); Bilirubin Direct 1.2 mg/dL (0.0-0.5); Bilirubin Total 1.7 mg/dL (0.0-1.0); Blood Urea Nitrogen 3 mg/dL (9-16); Calcium 8.3 mg/dL (8.4-10.2); Carbon Dioxide 24 mmol/L (22-29); Chloride 108 mmol/L (96-108); Creatinine Clr Calc Pharmacy 109.6; Estimated Glomerular Filt Rate > 60; Glucose Random 113 mg/dL (60-115); Lipase 22 U/L (8-78); Potassium 3.1 mmol/L (3.3-5.1); Sodium 144 mmol/L (135-145); Total Protein 6.2 g/dL (6.5-8.0)
[2022-08-23 22:18] LABS: COVID-19 Test Negative (Negative); IDNOW Serial# 55D5AD1C; Influenza A Negative (Negative); Influenza B2 Negative (Negative)
[2022-08-23 22:18] LABS: Appearance Urine Cloudy; Color Urine Yellow; Glucose Urine UA Negative (Negative); Leukocyte Esterase Urine Negative (Negative); Nitrite Urine Negative (Negative); PH 6.5 (5.0-9.0); Urine Blood Negative (Negative); Urine Ketones Negative (Negative); Urine Protein Trace mg/dL (Neg-Trace)
[2022-08-23 22:21] LABS: UPreg QC Valid YES; Urine Pregnancy NEGATIVE (NEGATIVE)
== END 2022-08-23 22:30 | disposition left against medical advice (07) ==
PROVIDERS: Emergency Provider Emergency Medicine; PCP Hospitalist
DX: R10.9 Unspecified abdominal pain (principal); F10.20 Alcohol dependence, uncomplicated; K70.30 Alcoholic cirrhosis of liver without ascites; K70.10 Alcoholic hepatitis without ascites; Z94.4 Liver transplant status; Z20.822 Contact with and (suspected) exposure to COVID-19
CPT/HCPCS: 36415; 80053; 81003; 81025; 82077; 82248; 83690; 85025; 87502; 87635

== ENCOUNTER 2022-08-23 20:17 | Emergency (ER) | payer MEDICARE, MEDICAID, SELFPAY ==
[2022-08-23 23:00] VITALS: BP 96/67; PULSE 104; RESP 16; TEMP 36.9; O2SAT 100; BMI 22.6
[2022-08-23 23:37] VITALS: BP 99/69; PULSE 88; RESP 20; O2SAT 98
[2022-08-24] MEDS: ondansetron HCL 4 MG/2 ML VIAL IVPUSH (00:15)
[2022-08-24] MEDS: 0.9 % Sodium Chloride 1,000 ML 999 ML IV (00:15)
[2022-08-24] MEDS: Pantoprazole Sodium 40 MG/10 ML VIAL 80 MG IVPUSH (00:16)
[2022-08-24 00:18] LABS: Basophils Absolute Auto 0.1 X10*3/uL (0.0-0.2); Eosinophils Absolute Auto 0.1 X10*3/uL (0.0-0.4); Eosinophils Percent Auto 1.5 % (0-4); Hematocrit 31.2 % (37.0-47.0); Hemoglobin 10.5 g/dl (12.0-16.0); Imm Gran Abs Auto 0.04 X10*3/uL (0.00-0.03); Imm Gran Pct Auto 0.6 % (0.0-0.4); Lymphocytes Absolute Auto 2.4 X10*3/uL (1.2-4.9); Lymphocytes Percent Auto 34.4 % (20-40); MANUAL DIFF FLAG NO; Mean Corpuscular HGB Conc 33.7 g/dl (31.0-35.0); Mean Corpuscular Hemoglobin 36.7 pg (27.0-33.0); Mean Corpuscular Volume 109.1 fL (80.0-98.0); Mean Platelet Volume 8.8 fL (9.4-12.3); Monocytes Absolute Auto 0.4 X10*3/uL (0.1-1.2); Monocytes Percent Auto 5.4 % (2-11); Neutrophils Absolute Auto 3.9 x10*3/uL (2.0-8.3); Neutrophils Percent Auto 57.1 % (45-73); Platelet Count 184 X10*3/uL (160-400); Red Blood Count 2.86 X10*6/uL (4.20-5.50); Red Cell Distribution Width 15.4 % (11.0-16.0); White Blood Count 6.9 X10*3/uL (4.8-10.8)
[2022-08-24 00:24] LABS: INTERNATIONAL NORM RATIO 0.9 (0.9-1.1); Prothrombin Time 10.4 SEC (10.0-13.1)
--- NOTE | 2022-08-24 00:26 | ED_ITS ---
HPI - General Adult General Chief complaint: Nausea/Vomiting/Diarrhea Stated complaint: vomiting abd pain Time Seen by Provider: 08/23/22 23:46 Source: patient Mode of arrival: ambulatory Limitations: no limitations History of Present Illness HPI narrative: Patient alcoholic been here multiple times was seen here yesterday went home went to [facility] come back again here now she says she is vomiting blood for last few days patient H and H been stable asking for pain medication for her chronic abdominal pain was very upset with the staff same she did yesterday and she went AMA Related Data Home Medications Medication Instructions Recorded Confirmed tacrolimus 1 mg capsule, 2 mg PO Q12H 01/16/22 04/24/22 immediate-release Previous Rx's Medication Instructions Recorded docusate sodium 100 mg capsule 100 mg PO DAILY 30 days #30 caps 05/25/21 (Colace) ondansetron HCl 4 mg tablet 4 mg PO Q8H PRN nausea and 10/31/21 (Zofran) vomiting 1 month #30 tabs olanzapine 2.5 mg tablet 2.5 mg PO DAILY #30 tabs 12/12/21 cane #1 ea 01/16/22 diazepam 5 mg tablet (Valium) 5 mg PO TID PRN anxiety 14 days 02/01/22 #42 tabs disulfiram 500 mg tablet 500 mg PO DAILY #30 tabs 02/01/22 naltrexone microspheres 380 mg 380 mg IM Q4W 30 days #1 ea 02/03/22 intramuscular suspension,extended release (Vivitrol) trazodone 50 mg tablet 50 mg PO BEDTIME #90 tabs 02/06/22 albuterol sulfate 90 mcg/actuation 2 puff inhalation Q4-6H PRN for 02/20/22 aerosol inhaler wheezing #8.5 ea hydrocortisone 2.5 % topical cream 1 appl [place] BID-QID PRN hemorrhoids 04/24/22 with perineal applicator 14 days #30 grams (Proctosol HC) polyethylene glycol 3350 17 gram 17 g PO DAILY 14 days #14 ea 04/24/22 oral powder packet (Miralax) blood pressure monitor #1 ea 05/26/22 naltrexone 50 mg tablet 50 mg PO DAILY 14 days #14 tabs 06/05/22 clonidine HCl 0.1 mg tablet 0.1 mg PO TID 7 days #21 tabs 06/13/22 hydroxyzine pamoate 25 mg capsule 25 mg PO TID PRN anxiety 7 days 06/13/22 (Vistaril) #21 caps prednisone 5 mg tablet 5 mg PO DAILY #30 tabs 08/16/22 tacrolimus 5 mg capsule, 5 mg PO Q12H #60 caps 08/16/22 immediate-release diazepam 10 mg tablet (Valium) 10 mg PO BID PRN anxiety 1 day #2 08/17/22 tabs Allergies Allergy/AdvReac Type Severity Reaction Status Date / Time acetaminophen [From Vicodin] Allergy Intermediate hives Verified 08/23/22 11:47 hydrocodone [From Vicodin] Allergy Intermediate hives Verified 08/23/22 11:47 tramadol Allergy Intermediate hives Verified 08/23/22 11:47 banana [BANANA] AdvReac Severe DIFFICULTY Verified 08/23/22 11:47 BREATHING seafood AdvReac Hives Verified 08/23/22 11:47 Review of Systems Review of Systems: Yes all other systems are reviewed and are negative PMFSH Past Medical History 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 Asthma CHF (congestive heart failure) Chiari malformation CVA (cerebral vascular accident) Depression Depression with anxiety GI bleed Hepatitis C Hypokalemia Liver failure Liver transplant planned NSVT (nonsustained ventricular tachycardia) Orthostatic hypotension Peptic ulcer disease Seizures Surgical History Gastric bypass status for obesity History of liver transplant Hx of cholecystectomy Family History Family History Father Liver failure Kidney failure History of heart attack Mother Diabetes HTN (hypertension) Social History Social History Household Members: Family Housing: House Do you presently have visiting nurse or other home services: No Unable to assess alcohol history related to: Refusing to respond Alcohol intake: current Alcohol intake frequency: 3 or more drinks per day Alcohol type: hard liquor Patient Tobacco Use Status: Current everyday Tobacco user Tobacco use type: Cigarette Cigarette Packs Per Day: 0.5 Cigarettes Per Day: 10.0 Years Smoked: 12 e-Cigarette/Vaping Use: Never Used Second Hand Smoke Exposure: Yes Use of substances other than those prescribed or required for medical reasons: Yes Substance Use Type: Marijuana Substance Use Frequency: Daily Advance Directives: Yes Advance Directives on File: Yes Advance Directives Date on File: 07/27/22 service: No Current occupational status: disabled Cognitive needs: No Hearing needs: No Vision needs: No Physical Exam ED Vital Signs: Vital Signs - 24 hr 08/23/22 23:00 08/23/22 23:37 08/24/22 00:31 Temperature 98.4 F 97.4 F Pulse Rate 104 H 88 83 Respiratory Rate 16 20 20 Blood Pressure 96/67 99/69 103/66 Pulse Oximetry 100 98 100 Oxygen Delivery Method Room Air Room Air Room Air BMI result Body Mass Index 22.6 Appearance: Alert. Oriented X3. No acute distress. Eyes: PERRLA, No Nystagmus icterus+ ENT: Pharynx normal. Oral Mucosa moist Neck: Normal inspection. Neck supple. CVS: Normal heart rate and rhythm. Pulses normal. Respiratory: No respiratory distress. Equal air entry bilateral, no wheezing/rales/rhonchi Abdomen: Soft diffuse tenderness no rebound tenderness or guarding Bowel sounds are present, no mass palpable, no CVA tenderness Skin: Skin warm and dry. Normal skin color. Normal skin turgor. Extremities: No lower extremity edema. No calf tenderness Neuro: Oriented X 3. No motor deficit. No sensory deficit.No cerebellar signs , cranial nerves II-XII intact Medical Decision Making MDM Narrative Medical decision making narrative: 0045 Patient very rude to the staff using disrespectable name same as she did yesterday making excuse to leave the hospital although we apologized for delay in care as fever busy patient was very rude got the medications but does not want to stay as she thinks [place] disrespectful when we asked her whether she has alcoholic or not. Patient vitals are stable patient signed against medical advice Lab Data Lab results reviewed: Yes I reviewed the patient's lab results. Result diagrams: 08/24/22 00:11 08/24/22 00:11 Labs: Lab Results 08/24/22 08/24/22 08/24/22 Range/Units 00:11 00:11 00:11 WBC 6.9 (4.8-10.8) X10*3/uL RBC 2.86 L (4.20-5.50) X10*6/uL Hgb 10.5 L (12.0-16.0) g/dl Hct 31.2 L (37.0-47.0) % MCV 109.1 H (80.0-98.0) fL MCH 36.7 H (27.0-33.0) pg MCHC 33.7 (31.0-35.0) g/dl RDW 15.4 (11.0-16.0) % Plt Count 184 (160-400) X10*3/uL MPV 8.8 L (9.4-12.3) fL Immature Gran % (Auto) 0.6 H (0.0-0.4) % Neut % (Auto) 57.1 (45-73) % Lymph % (Auto) 34.4 (20-40) % [place] % (Auto) 5.4 (2-11) % Eos % (Auto) 1.5 (0-4) % Baso % (Auto) 1.0 (0-2) % Lymph # (Auto) 2.4 (1.2-4.9) X10*3/uL [place] # (Auto) 0.4 (0.1-1.2) X10*3/uL Eos # (Auto) 0.1 (0.0-0.4) X10*3/uL Baso # (Auto) 0.1 (0.0-0.2) X10*3/uL Abs Immat Gran (auto) 0.04 H (0.00-0.03) X10*3/uL Absolute Neuts (auto) 3.9 (2.0-8.3) x10*3/uL Absolute Nucleated RBC 0.000 (0.0-0.012) X10*3/uL Nucleated RBC % (auto) 0.0 (0.0-0.2) /100WBC PT 10.4 (10.0-13.1) SEC INR 0.9 (0.9-1.1) Sodium (135-145) mmol/L Potassium (3.3-5.1) mmol/L Chloride (96-108) mmol/L Carbon Dioxide (22-29) mmol/L Anion Gap (12-20) BUN (9-16) mg/dL Creatinine (0.5-1.4) mg/dL Estim Creat Clear Calc Estimated GFR Random Glucose (60-115) mg/dL Calcium (8.4-10.2) mg/dL Magnesium (1.6-2.6) mg/dL Total Bilirubin (0.0-1.0) mg/dL AST (5-31) U/L ALT (0-31) U/L Alkaline Phosphatase (39-117) U/L Total Protein (6.5-8.0) g/dL Albumin (3.5-5.0) g/dL Ethyl Alcohol mg/dL COVID-19 ([facility]) Negative (Negative) COVID-19 Clin Com See Note 08/24/22 Range/Units 00:11 WBC (4.8-10.8) X10*3/uL RBC (4.20-5.50) X10*6/uL Hgb (12.0-16.0) g/dl Hct (37.0-47.0) % MCV (80.0-98.0) fL MCH (27.0-33.0) pg MCHC (31.0-35.0) g/dl RDW (11.0-16.0) % Plt Count (160-400) X10*3/uL MPV (9.4-12.3) fL Immature Gran % (Auto) (0.0-0.4) % Neut % (Auto) (45-73) % Lymph % (Auto) (20-40) % [place] % (Auto) (2-11) % Eos % (Auto) (0-4) % Baso % (Auto) (0-2) % Lymph # (Auto) (1.2-4.9) X10*3/uL [place] # (Auto) (0.1-1.2) X10*3/uL Eos # (Auto) (0.0-0.4) X10*3/uL Baso # (Auto) (0.0-0.2) X10*3/uL Abs Immat Gran (auto) (0.00-0.03) X10*3/uL Absolute Neuts (auto) (2.0-8.3) x10*3/uL Absolute Nucleated RBC (0.0-0.012) X10*3/uL Nucleated RBC % (auto) (0.0-0.2) /100WBC PT (10.0-13.1) SEC INR (0.9-1.1) Sodium 144 (135-145) mmol/L Potassium 3.6 (3.3-5.1) mmol/L Chloride 109 H (96-108) mmol/L Carbon Dioxide 22 (22-29) mmol/L Anion Gap 17 (12-20) BUN 3 L (9-16) mg/dL Creatinine 0.60 (0.5-1.4) mg/dL Estim Creat Clear Calc 126.0 Estimated GFR > 60 Random Glucose 83 (60-115) mg/dL Calcium 7.9 L (8.4-10.2) mg/dL Magnesium 1.3 L* (1.6-2.6) mg/dL Total Bilirubin 1.5 H (0.0-1.0) mg/dL AST 146 H (5-31) U/L ALT 70 H (0-31) U/L Alkaline Phosphatase 523 H (39-117) U/L Total Protein 6.0 L (6.5-8.0) g/dL Albumin 3.1 L (3.5-5.0) g/dL Ethyl Alcohol 230 mg/dL COVID-19 ([facility]) (Negative) COVID-19 Clin Com Discharge Plan Discharge Clinical Impression: Alcoholic cirrhosis of liver, Alcohol abuse Patient Disposition: Left Against Medical Advice Prescriptions: No Action docusate sodium [Colace] 100 mg capsule 100 mg PO DAILY 30 Days Qty: 30 1RF trazodone 50 mg tablet 50 mg PO BEDTIME Qty: 90 5RF albuterol sulfate 90 mcg/actuation HFA aerosol inhaler 2 puff inhalation Q4-6H PRN (Reason: for wheezing) Qty: 8.5 5RF (DME) blood pressure monitor Kit See Rx Instructions .ROUTE .MEDSUPPLY Qty: 1 0RF Rx Instructions: Automatic, Digital. Dx: I10. Daily As directed, 999 days/lifetime naltrexone 50 mg tablet 50 mg PO DAILY 14 Days Qty: 14 1RF tacrolimus 5 mg capsule 5 mg PO Q12H Qty: 60 6RF prednisone 5 mg tablet 5 mg PO DAILY Qty: 30 2RF diazepam [Valium] 10 mg tablet 10 mg PO BID PRN (Reason: anxiety) 1 Days Qty: 2 0RF ondansetron HCl [Zofran] 4 mg tablet 4 mg PO Q8H PRN (Reason: nausea and vomiting) 30 Days Qty: 30 3RF olanzapine 2.5 mg tablet 2.5 mg PO DAILY Qty: 30 2RF tacrolimus 1 mg capsule 2 mg PO Q12H Label Comments: with 5 mg cap for total dose of 7 mg daily (DME) cane Device See Rx Instructions .Route Qty: 1 0RF Rx Instructions: As directed hydrocortisone [Proctosol HC] 2.5 % cream with perineal applicator 1 appl [place] BID-QID PRN (Reason: hemorrhoids) 14 Days Qty: 30 0RF polyethylene glycol 3350 [Miralax] 17 gram powder in packet 17 g PO DAILY 14 Days Qty: 14 0RF disulfiram 500 mg tablet 500 mg PO DAILY Qty: 30 2RF diazepam [Valium] 5 mg tablet 5 mg PO TID PRN (Reason: anxiety) 14 Days Qty: 42 0RF Vivitrol 380 mg suspension,extended rel recon 380 mg IM Q4W 30 Days Qty: 1 5RF clonidine HCl 0.1 mg tablet 0.1 mg PO TID 7 Days Qty: 21 1RF hydroxyzine pamoate [Vistaril] 25 mg capsule 25 mg PO TID PRN (Reason: anxiety) 7 Days Qty: 21 0RF Stand Alone Forms: Against Medical Advice Interventions: ED Discharge Assessment Last Done: 08/24/22 01:00 Discharge Date/Time: 08/24/22 01:02
[2022-08-24 00:31] VITALS: BP 103/66; PULSE 83; RESP 20; TEMP 36.3; O2SAT 100
[2022-08-24 00:34] LABS: COVID-19 Test Negative (Negative)
[2022-08-24] MEDS: Midazolam HCl/PF 2 MG/2 ML VIAL IVPUSH (00:41)
[2022-08-24 00:47] LABS: Alanine Aminotransferase 70 U/L (0-31); Albumin Level 3.1 g/dL (3.5-5.0); Alkaline Phosphatase 523 U/L (39-117); Anion Gap 17 (12-20); Aspartate Amino Transferase 146 U/L (5-31); Bilirubin Total 1.5 mg/dL (0.0-1.0); Blood Urea Nitrogen 3 mg/dL (9-16); Calcium 7.9 mg/dL (8.4-10.2); Carbon Dioxide 22 mmol/L (22-29); Chloride 109 mmol/L (96-108); Estimated Glomerular Filt Rate > 60; Ethanol 230 mg/dL; Glucose Random 83 mg/dL (60-115); Magnesium 1.3 mg/dL (1.6-2.6); Potassium 3.6 mmol/L (3.3-5.1); Sodium 144 mmol/L (135-145)
[2022-08-24] MEDS: Magnesium Hydrox/Alum Hydrox 30 ML ORAL.SUSP PO (00:55)
[2022-08-24] MEDS: Magnesium Oxide 400 MG TABLET 800 MG PO (00:55)
== END 2022-08-24 01:02 | disposition left against medical advice (07) ==
PROVIDERS: Emergency Provider Internal Medicine; PCP Hospitalist
DX: K70.30 Alcoholic cirrhosis of liver without ascites (principal); F10.10 Alcohol abuse, uncomplicated; Y90.7 Blood alcohol level of 200-239 mg/100 ml; G89.29 Other chronic pain; R10.84 Generalized abdominal pain; Z20.822 Contact with and (suspected) exposure to COVID-19; F31.63 Bipolar disorder, current episode mixed, severe, without psychotic features; K70.10 Alcoholic hepatitis without ascites; F17.210 Nicotine dependence, cigarettes, uncomplicated; F12.90 Cannabis use, unspecified, uncomplicated; Z94.4 Liver transplant status; Z86.73 Personal history of transient ischemic attack (TIA), and cerebral infarction without residual deficits; Z79.899 Other long term (current) drug therapy
CPT/HCPCS: 36415; 80053; 81003; 81025; 82077; 82248; 83690; 83735; 85025; 85610; 87502; 87635; 96374; 96375; 99284; J2250; J2405

== ENCOUNTER → 2022-09-11 10:09 | Outpatient (BNVA) | payer MEDICARE, MEDICAID, SELFPAY | PROVIDERS: PCP Hospitalist; Visit Provider Nurse Practitioner Psychiatric/Mental Health | DX: Z51.81 Encounter for therapeutic drug level monitoring (principal) | CPT/HCPCS: 80305; 99212 ==

== ENCOUNTER 2022-09-11 10:55 | Inpatient (IN) | payer MEDICARE, MEDICAID, SELFPAY ==
--- NOTE | ~2022-09-11 | CT_ITS ---
EXAMINATION: CT ABDOMEN AND PELVIS WITHOUT CONTRAST CLINICAL INFORMATION: Abdominal pain status post liver transplant COMPARISON: 12/01/2021 TECHNIQUE: Multidetector volumetric imaging was performed from the superior aspect of the liver through the pubic symphysis. Sagittal and coronal reformatted images were obtained on the technologist's workstation. This CT examination was performed using dose optimization techniques as appropriate, variously including the following: *Automated exposure control *Adjustment of mA and/or kV according to patient size (this includes techniques or standardized protocols for targeted exams where dose is matched to indication/reason for exam; i.e. extremities or head) *Use of iterative reconstruction technique DLP: 469 mGy-cm FINDINGS: LUNG BASES: Mild bronchial wall thickening. Coronary calcifications. LIVER, GALLBLADDER, AND BILIARY TREE: The liver transplant redemonstrates severe hepatic steatosis and increasing size compared to the prior examination now measuring up to 25 cm craniocaudally, previously 21 cm. No focal liver lesions. No biliary dilatation. Gallbladder is absent. PANCREAS: Unremarkable. SPLEEN: Unremarkable. ADRENAL GLANDS: Unremarkable. KIDNEYS AND URETERS: The kidneys are normal in size, shape, and attenuation. No hydronephrosis, hydroureter, or calculi seen. No perinephric stranding. BLADDER: Unremarkable. GASTROINTESTINAL TRACT: Status post Ja-en-Y gastric bypass. The gastric pouch is larger than is usually seen, but unchanged. No obstruction. Colon unremarkable. Normal appendix. ABDOMINAL WALL: No significant hernia is appreciated. LYMPH NODES: Normal. VASCULAR: Unremarkable. PELVIC VISCERA: Unremarkable. OSSEOUS STRUCTURES: Unremarkable. CT/CT abdomen pelvis wo IV con IMPRESSION: * Increasing hepatomegaly. * Severe hepatic steatosis. * Ja-en-Y gastrojejunostomy is stable in appearance. No intestinal obstruction or inflammation. * Mild bronchial wall thickening evident at the lung bases. * Coronary calcifications, unexpected given the patient's age. Fleischner guidelines were followed.
[2022-09-11 11:04] VITALS: BP 105/69; PULSE 114; RESP 18; TEMP 36.7; O2SAT 99; BMI 22.2
[2022-09-11 11:20] LABS: MANUAL DIFF FLAG NO
[2022-09-11 11:22] LABS: Basophils Absolute Auto 0.1 X10*3/uL (0.0-0.2); Basophils Percent Auto 1.7 % (0-2); Eosinophils Absolute Auto 0.2 X10*3/uL (0.0-0.4); Eosinophils Percent Auto 4.6 % (0-4); Hematocrit 36.5 % (37.0-47.0); Hemoglobin 12.2 g/dl (12.0-16.0); Imm Gran Abs Auto 0.02 X10*3/uL (0.00-0.03); Imm Gran Pct Auto 0.4 % (0.0-0.4); Lymphocytes Absolute Auto 1.4 X10*3/uL (1.2-4.9); Lymphocytes Percent Auto 30.1 % (20-40); Mean Corpuscular HGB Conc 33.4 g/dl (31.0-35.0); Mean Corpuscular Hemoglobin 36.2 pg (27.0-33.0); Mean Corpuscular Volume 108.3 fL (80.0-98.0); Mean Platelet Volume 8.9 fL (9.4-12.3); Monocytes Absolute Auto 0.4 X10*3/uL (0.1-1.2); Neutrophils Absolute Auto 2.6 x10*3/uL (2.0-8.3); Neutrophils Percent Auto 54.2 % (45-73); Platelet Count 210 X10*3/uL (160-400); Red Blood Count 3.37 X10*6/uL (4.20-5.50); Red Cell Distribution Width 15.6 % (11.0-16.0); White Blood Count 4.8 X10*3/uL (4.8-10.8)
[2022-09-11 11:45] LABS: Alanine Aminotransferase 69 U/L (0-31); Albumin Level 3.3 g/dL (3.5-5.0); Alkaline Phosphatase 532 U/L (39-117); Aspartate Amino Transferase 311 U/L (5-31); Bilirubin Total 3.1 mg/dL (0.0-1.0); Blood Urea Nitrogen 4 mg/dL (9-16); Creatinine Clr Calc Pharmacy 116.3; Estimated Glomerular Filt Rate > 60; Glucose Random 119 mg/dL (60-115); Total Protein 6.3 g/dL (6.5-8.0)
[2022-09-11 11:54] LABS: Anion Gap 22 (12-20); Carbon Dioxide 18 mmol/L (22-29); Chloride 107 mmol/L (96-108); Potassium 3.3 mmol/L (3.3-5.1); Sodium 144 mmol/L (135-145)
[2022-09-11 12:00] VITALS: BP 101/71; PULSE 102; RESP 18; O2SAT 97
--- NOTE | 2022-09-11 12:32 | ED_ITS ---
HPI - Abdominal Pain General Chief Complaint: Abdominal Pain Stated Complaint: LIVER PAIN HAD TRANSPLANT Time Seen by Provider: 09/11/22 12:25 Source: patient Mode of arrival: ambulatory Limitations: no limitations History of Present Illness HPI narrative: 32-year-old female came in for concern of alcohol withdrawal and abdominal pain. Patient is well-known to our ED staff for recurrent ED visits for alcohol related problems, patient with chronic alcoholism problem and alcoholic liver cirrhosis status post liver transplant, patient is still active drinker presented today concerned of alcohol withdrawal and anxiety, last drink was this morning. Patient is complaining of right upper abdominal pain which is chronic since the patient had the transplant. Patient with history of alcohol withdrawal seizure and feels she is going to have a seizure. Complaining of mild nausea (4), no headache, no paroxysmal sweats, no auditory disturbance, feeling anxious ( 6), no visual disturbance, feel mildly agitated (1), no tactile disturbances, tremor moderate (4) , no change in orientation or clouding of sensorium. Related Data Home Medications Medication Instructions Recorded Confirmed tacrolimus 1 mg capsule, 2 mg PO Q12H 01/16/22 09/11/22 immediate-release Previous Rx's Medication Instructions Recorded albuterol sulfate 90 mcg/actuation 2 puff inhalation Q4-6H PRN for 02/20/22 aerosol inhaler wheezing #8.5 ea prednisone 5 mg tablet 5 mg PO DAILY #30 tabs 08/16/22 tacrolimus 5 mg capsule, 5 mg PO Q12H #60 caps 08/16/22 immediate-release Allergies Allergy/AdvReac Type Severity Reaction Status Date / Time acetaminophen [From Vicodin] Allergy Intermediate hives Verified 09/11/22 10:26 hydrocodone [From Vicodin] Allergy Intermediate hives Verified 09/11/22 10:26 tramadol Allergy Intermediate hives Verified 09/11/22 10:26 banana [BANANA] AdvReac Severe DIFFICULTY Verified 09/11/22 10:26 BREATHING seafood AdvReac Hives Verified 09/11/22 10:26 Review of Systems Review of Systems All other systems are reviewed and are negative Constitutional: Reports as per HPI and Reports no additional constitutional complaints Eyes: Reports as per HPI and Reports no additional eye complaints Reports system reviewed and no additional complaints, except as documented Cardiovascular: Reports as per HPI and Reports no additional cardiovascular complaints Respiratory: Reports as per HPI and Reports no additional respiratory complaints Gastrointestinal: Reports as per HPI and Reports no additional gastrointestinal complaints Genitourinary: Reports no additional female genitourinary complaints Musculoskeletal: Reports no additional musculoskeletal complaints Skin/Breast: Reports system reviewed and no additional complaints, except as docu Psychiatric: Reports no additional psychiatric complaints Endocrine: Reports no additional endocrine complaints Hematologic/Lymphatic: Reports no additional hematologic/lymphatic complaints Allergic/Immunologic: Reports no additional allergic/immunologic complaints Reports system reviewed and no additional complaints, except as documented and Reports Abnormal speech present [facility] Past Medical History 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 Asthma CHF (congestive heart failure) Chiari malformation CVA (cerebral vascular accident) Depression Depression with anxiety GI bleed Hepatitis C Hypokalemia Liver failure Liver transplant planned NSVT (nonsustained ventricular tachycardia) Orthostatic hypotension Peptic ulcer disease Seizures Surgical History Gastric bypass status for obesity History of liver transplant Hx of cholecystectomy Family History Family History Father Liver failure Kidney failure History of heart attack Mother Diabetes HTN (hypertension) Social History Social History Household Members: Family Housing: House Do you presently have visiting nurse or other home services: No Unable to assess alcohol history related to: Refusing to respond Alcohol intake: current Alcohol intake frequency: 3 or more drinks per day Alcohol type: hard liquor Patient Tobacco Use Status: Current everyday Tobacco user Tobacco use type: Cigarette Cigarette Packs Per Day: 0.5 Cigarettes Per Day: 10.0 Years Smoked: 12 e-Cigarette/Vaping Use: Never Used Second Hand Smoke Exposure: Yes Substance Use Type: Marijuana Advance Directives: Yes Advance Directives on File: Yes Advance Directives Date on File: 07/27/22 service: No Current occupational status: disabled Cognitive needs: No Hearing needs: No Vision needs: No Physical Exam ED Vital Signs: Vital Signs - 24 hr 09/11/22 11:04 09/11/22 12:00 09/11/22 14:27 Temperature 98.0 F Pulse Rate 114 H 102 H 98 Respiratory Rate 18 18 18 Blood Pressure 105/69 101/71 100/69 Pulse Oximetry 99 97 99 Oxygen Delivery Method Room Air Room Air Room Air BMI result Body Mass Index 22.2 Vital signs have been reviewed as appeared to be correct. Blood pressure normal. Heart rate normal. Respiration rate normal. Temperature normal. Oxygen saturation normal. Appearance: Anxious,Oriented X3. No acute distress. Head: Normal external exam. Normocephalic. Atraumatic. No Fernandez signs noted. No raccoon eyes noted Eyes: PERRLA. EOMI. Conjunctiva and sclera normal. Eyelids normal. ENT: TM's Normal. Pharynx normal. Uvula midline. Moist mucous membranes. No trismus noted. No drooling noted. No muffled voice noted. Neck: Normal inspection. Neck supple. FROM. No adenopathy. Thyroid Normal. No meningeal signs. No neck mass noted. CVS: Normal heart rate and rhythm. Heart sound normal. No murmurs noted. Pulses normal throughout. Respiratory: No respiratory distress. Painless inspiration. Breath sounds normal. No wheezes/rales/rhonchi noted. Chest nontender. No accessory muscle usage noted or decreased air movement noted. Abdomen: Soft and nontender. Bowel sounds normal in all 4 quadrants. No distention noted. No organomegaly noted. No visible injury noted. Back: No CVA tenderness. Full range of motion noted. Skin: Skin warm and dry. Normal skin color. Normal skin turgor. No rashes/lesions/lacerations noted. Extremities: No lower extremity edema. Extremities exhibit normal range of motion. Extremities nontender. Neuro: anxious,Oriented X 3. Cranial nerve exam: II-XII are grossly intact No motor deficit. No sensory deficit. Reflexes normal. Course Course Course Narrative: 32-year-old female history of alcoholic liver cirrhosis s/p liver transplant patient is not compliant with the medical advise of not drinking and actively drink alcohol on a daily basis, patient feels likes she should stop drinking in seeking for help, patient with withdrawal symptoms CIWA score is 14 however patient feels impending seizure is coming. Patient was started on phenobarb protocol and was given Ativan orally. chronic abdominal pain will order abdominal CT for assessment. Patient will be admitted Dr. Bartholomew at the bedside interviewing the patient. Medications Administered Discontinued Medications Generic Name Dose Route Start Last Admin Trade Name Freq PRN Reason Stop Dose Admin Lorazepam 1 mg 09/11/22 14:28 09/11/22 15:00 Lorazepam 1 Mg Tablet PO 09/11/22 14:29 1 mg ONCE ONE Administration Morphine Sulfate 1 mg 09/11/22 13:52 09/11/22 14:14 Morphine Sulfate 2 Mg/Ml Cartridge IM 09/11/22 13:53 1 mg ONCE ONE Administration Protocol Phenobarbital Sodium 237 mg 09/11/22 13:00 09/11/22 13:18 Phenobarbital Sodium 130 Mg/Ml Im Once IM 09/11/22 13:01 237 mg ONCE ONE Administration Protocol MDM - Abdominal Pain Lab Data Attestation: I reviewed the patient's lab results. Result diagrams: 09/11/22 11:15 09/11/22 11:15 Labs: Lab Results 09/11/22 09/11/22 09/11/22 Range/Units 11:15 11:15 14:34 WBC 4.8 (4.8-10.8) X10*3/uL RBC 3.37 L (4.20-5.50) X10*6/uL Hgb 12.2 (12.0-16.0) g/dl Hct 36.5 L (37.0-47.0) % MCV 108.3 H (80.0-98.0) fL MCH 36.2 H (27.0-33.0) pg MCHC 33.4 (31.0-35.0) g/dl RDW 15.6 (11.0-16.0) % Plt Count 210 (160-400) X10*3/uL MPV 8.9 L (9.4-12.3) fL Immature Gran % (Auto) 0.4 (0.0-0.4) % Neut % (Auto) 54.2 (45-73) % Lymph % (Auto) 30.1 (20-40) % [place] % (Auto) 9.0 (2-11) % Eos % (Auto) 4.6 H (0-4) % Baso % (Auto) 1.7 (0-2) % Lymph # (Auto) 1.4 (1.2-4.9) X10*3/uL [place] # (Auto) 0.4 (0.1-1.2) X10*3/uL Eos # (Auto) 0.2 (0.0-0.4) X10*3/uL Baso # (Auto) 0.1 (0.0-0.2) X10*3/uL Abs Immat Gran (auto) 0.02 (0.00-0.03) X10*3/uL Absolute Neuts (auto) 2.6 (2.0-8.3) x10*3/uL Absolute Nucleated RBC 0.000 (0.0-0.012) X10*3/uL Nucleated RBC % (auto) 0.0 (0.0-0.2) /100WBC Sodium 144 (135-145) mmol/L Potassium 3.3 (3.3-5.1) mmol/L Chloride 107 (96-108) mmol/L Carbon Dioxide 18 L (22-29) mmol/L Anion Gap 22 H (12-20) BUN 4 L (9-16) mg/dL Creatinine 0.65 (0.5-1.4) mg/dL Estim Creat Clear Calc 116.3 Estimated GFR > 60 Random Glucose 119 H (60-115) mg/dL Calcium 8.0 L (8.4-10.2) mg/dL Magnesium 1.6 (1.6-2.6) mg/dL Total Bilirubin 3.1 H (0.0-1.0) mg/dL AST 311 H (5-31) U/L ALT 69 H (0-31) U/L Alkaline Phosphatase 532 H (39-117) U/L Total Protein 6.3 L (6.5-8.0) g/dL Albumin 3.3 L (3.5-5.0) g/dL Lipase 9 (8-78) U/L Urine Color Dark Yellow Urine Appearance Clear Urine pH 7.0 (5.0-9.0) Ur Specific [place] <= 1.005 (1.005-1.025) Urine Protein Trace (Neg-Trace) mg/dL Urine Glucose (UA) Negative (Negative) mg/dL Urine Ketones Negative (Negative) mg/dL Urine Blood Negative (Negative) Urine Nitrite Negative (Negative) Ur Leukocyte Esterase Negative (Negative) Urine Test (NEGATIVE) 09/11/22 Range/Units 14:34 WBC (4.8-10.8) X10*3/uL RBC (4.20-5.50) X10*6/uL Hgb (12.0-16.0) g/dl Hct (37.0-47.0) % MCV (80.0-98.0) fL MCH (27.0-33.0) pg MCHC (31.0-35.0) g/dl RDW (11.0-16.0) % Plt Count (160-400) X10*3/uL MPV (9.4-12.3) fL Immature Gran % (Auto) (0.0-0.4) % Neut % (Auto) (45-73) % Lymph % (Auto) (20-40) % [place] % (Auto) (2-11) % Eos % (Auto) (0-4) % Baso % (Auto) (0-2) % Lymph # (Auto) (1.2-4.9) X10*3/uL [place] # (Auto) (0.1-1.2) X10*3/uL Eos # (Auto) (0.0-0.4) X10*3/uL Baso # (Auto) (0.0-0.2) X10*3/uL Abs Immat Gran (auto) (0.00-0.03) X10*3/uL Absolute Neuts (auto) (2.0-8.3) x10*3/uL Absolute Nucleated RBC (0.0-0.012) X10*3/uL Nucleated RBC % (auto) (0.0-0.2) /100WBC Sodium (135-145) mmol/L Potassium (3.3-5.1) mmol/L Chloride (96-108) mmol/L Carbon Dioxide (22-29) mmol/L Anion Gap (12-20) BUN (9-16) mg/dL Creatinine (0.5-1.4) mg/dL Estim Creat Clear Calc Estimated GFR Random Glucose (60-115) mg/dL Calcium (8.4-10.2) mg/dL Magnesium (1.6-2.6) mg/dL Total Bilirubin (0.0-1.0) mg/dL AST (5-31) U/L ALT (0-31) U/L Alkaline Phosphatase (39-117) U/L Total Protein (6.5-8.0) g/dL Albumin (3.5-5.0) g/dL Lipase (8-78) U/L Urine Color Urine Appearance Urine pH (5.0-9.0) Ur Specific [place] (1.005-1.025) Urine Protein (Neg-Trace) mg/dL Urine Glucose (UA) (Negative) mg/dL Urine Ketones (Negative) mg/dL Urine Blood (Negative) Urine Nitrite (Negative) Ur Leukocyte Esterase (Negative) Urine Test NEGATIVE (NEGATIVE) Imaging Data CT scan - abdomen: Attestation: I personally reviewed and interpreted this imaging study as follows: Radiologist's impression: *? Increasing hepatomegaly. *? Severe hepatic steatosis. *? Ja-en-Y gastrojejunostomy is stable in appearance. No intestinal obstruction or inflammation. *? Mild bronchial wall thickening evident at the lung bases. *? Coronary calcifications, unexpected given the patient's age. Discharge Plan Discharge Clinical Impression: Alcohol withdrawal Patient Disposition: Admitted As Inpatient
[2022-09-11] MEDS: PHENobarbitaL sodium 130 MG/ML IM ONCE 237 MG IM (13:18)
[2022-09-11] MEDS: Morphine Sulfate 2 MG/ML CARTRIDGE 1 MG IM (14:14)
[2022-09-11 14:27] VITALS: BP 100/69; PULSE 98; RESP 18; O2SAT 99
[2022-09-11 14:48] LABS: Appearance Urine Clear; Color Urine Dark Yellow; Glucose Urine UA Negative (Negative); Leukocyte Esterase Urine Negative (Negative); Nitrite Urine Negative (Negative); Specific Gravity - Urine <= 1.005 (1.005-1.025); Urine Blood Negative (Negative); Urine Ketones Negative (Negative); Urine Protein Trace mg/dL (Neg-Trace)
[2022-09-11 14:49] LABS: UPreg QC Valid YES; Urine Pregnancy NEGATIVE (NEGATIVE)
--- NOTE | 2022-09-11 14:54 | PHA.MEDREC ---
Pharmacy Consult ? Medication Reconciliation Pharmacy has completed the medication reconciliation. Confirmed what medications patient is supposed to be taking at home with her but she states that she hasn't taken any of her maintenance medications in weeks .
[2022-09-11] MEDS: LORazepam 1 MG TABLET PO (15:00)
--- NOTE | 2022-09-11 15:44 | PM.IMHP ---
History of Present Illness Date of Service: 09/11/22 Attending physician on admission: Minal Bartholomew Chief Complaint: alcohol withdrawal,abd pain 32-year-old female came in for concern of alcohol withdrawal and abdominal pain.? Patient? is well-known to our ED staff for recurrent ED visits for alcohol related problems, patient with chronic alcoholism problem and alcoholic liver cirrhosis status post liver transplant, patient is still active drinker presented today concerned of alcohol withdrawal and anxiety, last drink was this morning.? patient mostly complaining of epigastric discomfort, she said he she had some episode of nausea and vomiting also in past few days and was having difficulty eating due to that. The pain she describes that started with use of the alcohol, and nausea vomiting afterwards also did not help. currently has epigastric discomfort, nonradiating, mild, says her nausea vomiting improving in the ED and could able to eat some bites down. Denies any recent history of bleeding, says that her stool intermittently on wipe has some blood- says has history of hemorrhoids also. In addition to that patient has multiple nonspecific body ache complaints. patient also has history of alcohol withdrawal seizure in the past as per patient. She says that she has mostly dry cough. feels generalized weak.also c/o ch diarrhae 2-3 months ( related that to alcohol use). denies any headaches or chest pain or shortness of breath or urinary complaints Review of Systems Review of Systems: as above. [facility] 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 Asthma CHF (congestive heart failure) Chiari malformation CVA (cerebral vascular accident) Depression Depression with anxiety GI bleed Hepatitis C Hypokalemia Liver failure Liver transplant planned NSVT (nonsustained ventricular tachycardia) Orthostatic hypotension Peptic ulcer disease Seizures Family History Father Liver failure Kidney failure History of heart attack Mother Diabetes HTN (hypertension) Surgical History Gastric bypass status for obesity History of liver transplant Hx of cholecystectomy Social History Household Members: Family Housing: House Do you presently have visiting nurse or other home services: No Unable to assess alcohol history related to: Refusing to respond Alcohol intake: current Alcohol intake frequency: 3 or more drinks per day Alcohol type: hard liquor Patient Tobacco Use Status: Current everyday Tobacco user Tobacco use type: Cigarette Cigarette Packs Per Day: 0.5 Cigarettes Per Day: 10.0 Years Smoked: 12 e-Cigarette/Vaping Use: Never Used Second Hand Smoke Exposure: Yes Substance Use Type: Marijuana Advance Directives: Yes Advance Directives on File: Yes Advance Directives Date on File: 07/27/22 service: No Current occupational status: disabled Cognitive needs: No Hearing needs: No Vision needs: No Meds Allergies Allergy/AdvReac Type Severity Reaction Status Date / Time acetaminophen [From Vicodin] Allergy Intermediate hives Verified 09/11/22 10:26 hydrocodone [From Vicodin] Allergy Intermediate hives Verified 09/11/22 10:26 tramadol Allergy Intermediate hives Verified 09/11/22 10:26 banana [BANANA] AdvReac Severe DIFFICULTY Verified 09/11/22 10:26 BREATHING seafood AdvReac Hives Verified 09/11/22 10:26 Active Medications: Current Medications Albuterol Sulfate (Albuterol Sulfate 90 Mcg 8 Gm Inhaler) 2 puff INHALE Q4H PRN PRN Reason: for wheezing Thiamine HCl 100 mg/ Sodium (Chloride) 101 mls @ 202 mls/hr IV DAILY [facility] Folic Acid 1 mg/ Sodium (Chloride) 50.2 mls @ 100.4 mls/hr IV DAILY [facility] Lactated Ringer's (Lr) 1,000 mls @ 80 mls/hr IVCONT .[id number] [facility] Ondansetron HCl (Ondansetron Hcl 4 Mg/2 Ml Vial) 4 mg IVPUSH Q6H PRN PRN Reason: nausea/vomiting Pantoprazole Sodium (Pantoprazole Sodium 40 Mg/10 Ml Vial) 40 mg IVPUSH DAILY [facility] Pharmacy Consult (Consult Rx Etoh Phenob Im/Po) 1 each MISCELLANE ONCE PRN; Protocol PRN Reason: Consult order Pharmacy Consult (Consult Rx Perform Med Rec) 1 each MISCELLANE ONCE PRN PRN Reason: Consult order Phenobarbital (Phenobarbital 15 Mg Tablet) 45 mg PO BID [facility]; Protocol Stop: 09/13/22 21:01 Phenobarbital (Phenobarbital 15 Mg Tablet) 15 mg PO BID [facility]; Protocol Stop: 09/15/22 21:01 Phenobarbital (Phenobarbital 15 Mg Tablet) 15 mg PO DAILY [facility]; Protocol Stop: 09/17/22 09:01 Phenobarbital Sodium (Phenobarbital Sodium 130 Mg/Ml Vial) 178 mg IM Q3H [facility]; Protocol Stop: 09/11/22 19:01 Prednisone (Prednisone 5 Mg Tablet) 5 mg PO DAILY [facility] Sodium Chloride (0.9 % Sodium Chloride Flush 3 Ml Syringe) 3 ml IVFLUSH QSHIFT ALTHEA Tacrolimus (Tacrolimus 1 Mg Capsule) 2 mg PO Q12H [facility] Tacrolimus (Tacrolimus 1 Mg Capsule) 5 mg PO Q12H [facility] Home Medications Medication Instructions Recorded Confirmed Last Taken Type tacrolimus 1 mg capsule, 2 mg PO Q12H 01/16/22 09/11/22 Unknown History immediate-release Physical Exam Vital Signs and Narrative: Vital Signs: Last Vital Signs Temp 98.0 F 09/11/22 11:04 Pulse 98 09/11/22 14:27 Resp 18 09/11/22 14:27 BP 100/69 09/11/22 14:27 Pulse Ox 99 09/11/22 14:27 O2 Del Method 09/11/22 14:27 BMI result Body Mass Index 22.2 Appearance: Alert.? Oriented X3.anxious /tramulous. Eyes: Pupils equal, round and reactive to light.? Sclera mild icteric .? ENT: Pharynx normal.? Moist mucous membranes. cvs: rrr, [id number] . res: clear to auscultation ,no rhonchii or wheezing abd: no rebound or guarding ,nt, bs present. ext pulses present , no cyanosis . neuro: axo3 , nonfocal, tramulous Results Labs CBC and Chem 7: 09/11/22 11:15 09/11/22 11:15 Labs: Laboratory Results - last 24 hr 09/11/22 09/11/22 09/11/22 11:15 11:15 14:34 MCV 108.3 H MCH 36.2 H MCHC 33.4 RDW 15.6 Plt Count 210 MPV 8.9 L Immature Gran % (Auto) 0.4 Neut % (Auto) 54.2 Lymph % (Auto) 30.1 [place] % (Auto) 9.0 Eos % (Auto) 4.6 H Baso % (Auto) 1.7 Lymph # (Auto) 1.4 [place] # (Auto) 0.4 Eos # (Auto) 0.2 Baso # (Auto) 0.1 Abs Immat Gran (auto) 0.02 Absolute Neuts (auto) 2.6 Absolute Nucleated RBC 0.000 Nucleated RBC % (auto) 0.0 Anion Gap 22 H Estim Creat Clear Calc 116.3 Estimated GFR > 60 Random Glucose 119 H Calcium 8.0 L Total Bilirubin 3.1 H AST 311 H ALT 69 H Alkaline Phosphatase 532 H Total Protein 6.3 L Albumin 3.3 L Urine Color Dark Yellow Urine Appearance Clear Urine pH 7.0 Ur Specific [place] <= 1.005 Urine Protein Trace Urine Glucose (UA) Negative Urine Ketones Negative Urine Blood Negative Urine Nitrite Negative Ur Leukocyte Esterase Negative Urine Test 09/11/22 14:34 MCV MCH MCHC RDW Plt Count MPV Immature Gran % (Auto) Neut % (Auto) Lymph % (Auto) [place] % (Auto) Eos % (Auto) Baso % (Auto) Lymph # (Auto) [place] # (Auto) Eos # (Auto) Baso # (Auto) Abs Immat Gran (auto) Absolute Neuts (auto) Absolute Nucleated RBC Nucleated RBC % (auto) Anion Gap Estim Creat Clear Calc Estimated GFR Random Glucose Calcium Total Bilirubin AST ALT Alkaline Phosphatase Total Protein Albumin Urine Color Urine Appearance Urine pH Ur Specific [place] Urine Protein Urine Glucose (UA) Urine Ketones Urine Blood Urine Nitrite Ur Leukocyte Esterase Urine Test NEGATIVE Assessment and Plan (1) Alcohol withdrawal: Status: Acute (2) S/P liver transplant: Status: Acute (3) Gastritis: Status: Acute Plan 32F presented with abdominal pain, alochol withdrawals. Alcohol withdrawals: continue phenobarb protocol, thiamine, folic acid, CIWA scale, gentle hydration. urine toxicology. monitor electrolytes.pt/inr added Abdominal pain- mostly epigastric discomfort-possible gastritis add PPI, gentle hydration, lipase, added lidocaine patch. CT of the abdomen is added by ED . Persistent nausea vomiting and diarrhea: added stool studies symptomatic management with IV hydration, Zofran Rispiratory panel mild AGMA: possible secondary to alcohol use and starvation ketosis: continue hydration. Liver tranplant patient continue liver transplant Medications. Asthma mild intermittent: Not in exacerbation continue albuterol Elevated LFTs: related to liver disease as above. In addition alcohol use also contributing. Monitor LFTs consider GI evaluation if continue to worsen. dvt prophlax above management discussed with the patient in detail length she understand and in agreement with the above plan, time spent 70 minute. Patient full code. patient may benefit from inpatient stay for 2 midnights- considering alcohol withdrawal and persistent nausea vomiting need IV hydration antiemetics as well as phenobarb protocol. Quality Stroke Does the patient have a stroke diagnosis?: No VTE Prior VTE?: No VTE Risk Level:: Medical - moderate - high VTE Device Contraindication: N/A - Device Ordered VTE Drug Contraindication: N/A - Med Ordered
[2022-09-11 15:53] LABS: Lipase 9 U/L (8-78); Magnesium 1.6 mg/dL (1.6-2.6)
[2022-09-11] MEDS: PHENobarbitaL sodium 130 MG/ML VIAL 178 MG IM (16:05)
[2022-09-11] MEDS: Pantoprazole Sodium 40 MG/10 ML VIAL IVPUSH (16:17)
[2022-09-11] MEDS: Potassium Chloride Packet 20 MEQ PACKET PO (16:17)
[2022-09-11] MEDS: Thiamine HCL 100 MG in 0.9 % Sodium Chloride 100 ML 202 MG IV (16:22)
[2022-09-11 16:52] LABS: VBG Base Excess 1.3 mmol/L; VBG HCO3 21 mmol/L (22-26); VBG pCO2 24 mmHg; VBG pH 7.56 (7.32-7.43); VBG pO2 94 mmHg
[2022-09-11 16:52] LABS: Venous Blood Gas Refer to POC result
[2022-09-11] MEDS: Lactated Ringers 1,000 ML 80 ML IVCONT (16:52)
[2022-09-11] MEDS: Folic Acid 1 MG in 0.9 % Sodium Chloride 50 ML 100.4 MG IV (17:06)
[2022-09-11] MEDS: Tacrolimus 1 MG CAPSULE 5 MG PO (17:07)
[2022-09-11] MEDS: Tacrolimus 1 MG CAPSULE 2 MG PO (17:07)
--- NOTE | 2022-09-11 18:54 | PC.NURSE ---
LATE [id number] PT AGITATED THAT SHE WAS NOT GETTING PAIN MEDICATION, SHE PULLED HER IV ACCESS AND WALKED OUT OF THE ED. SHE REFUSED TO STAY AND SIGN-
--- NOTE | 2022-09-12 08:25 | MHC.CM.PN ---
Patient left AMA before being seen by case management.
--- NOTE | 2022-09-12 13:05 | PM.EVENT ---
Event Note Date of Service: 09/12/22 Event Note: Addiction consult placed Patient not seen as she had left prior to planned to discharge
--- NOTE | 2022-10-17 14:24 | PM.EVENT ---
Event Note Date of Service: 09/11/21 Event Note: Discharge summary:09/11/22 32-year-old female came in for concern of alcohol withdrawal and abdominal pain. Patient is against medical advise-did not wait to seen by MD. discharge diagnosis : Alcohol withdrawals Abdominal pain Persistent nausea vomiting and diarrhea Elevated LFTs Time Spent With Patient Time: Total time managing care of this patient today ____ minutes.
== END 2022-09-12 20:11 | disposition left against medical advice (07) | DRG 392 ==
LOC: HO.ED 15:07 → HO.EDOVER 15:36
PROVIDERS: Admitting Provider Internal Medicine; Emergency Provider Emergency Medicine; PCP Hospitalist; Visit Provider Internal Medicine
DX: K29.70 Gastritis, unspecified, without bleeding (principal); F10.239 Alcohol dependence with withdrawal, unspecified; Z94.4 Liver transplant status; E87.20 Acidosis, unspecified; K29.20 Alcoholic gastritis without bleeding; Z98.84 Bariatric surgery status; F17.210 Nicotine dependence, cigarettes, uncomplicated; J45.20 Mild intermittent asthma, uncomplicated; Z71.6 Tobacco abuse counseling; Z91.013 Allergy to seafood; Z88.5 Allergy status to narcotic agent; Z88.6 Allergy status to analgesic agent; Z79.52 Long term (current) use of systemic steroids; Z79.60 Long term (current) use of unspecified immunomodulators and immunosuppressants; Z79.899 Other long term (current) drug therapy
CPT/HCPCS: 36415; 74176; 80053; 80305; 81003; 81025; 82803; 83690; 83735; 85025; 99212; 99283; J2270; J2560; J3411

== ENCOUNTER 2022-09-15 09:38 | Inpatient (IN) | payer MEDICARE, MEDICAID, SELFPAY ==
--- NOTE | ~2022-09-15 | US_ITS ---
EXAMINATION: ULTRASOUND DUPLEX ARTERIAL AND VENOUS ABDOMEN CLINICAL INFORMATION: Rule out portal vein thrombus COMPARISON: Previous CT of the abdomen and pelvis from earlier this month and abdominal ultrasound most recent September TECHNIQUE: Doppler, color and grayscale evaluation of the liver vessels including waveform spectral analysis FINDINGS: The main, right and left hepatic veins are patent with appropriate hepatopedal flow. The extrahepatic portal vein is patent. The splenic vein is patent. The middle, right and left hepatic veins are patent with normal waveform. The IVC is patent with normal waveform. The main hepatic artery is patent with normal peak velocity of 120 cm/s and normal waveform. No ascites or collateral vessels. The spleen is not well visualized. The liver appears enlarged. Liver echotexture is increased and heterogeneous. US/US duplex arterial venous comp IMPRESSION: Normal liver Doppler exam. No evidence of portal vein thrombus.
[2022-09-15 09:48] VITALS: BP 112/80; BP 98/61; PULSE 103; PULSE 106; RESP 18; TEMP 36.7; O2SAT 97; O2SAT 98; BMI 20.9
--- NOTE | 2022-09-15 10:22 | ED.GENADULT ---
HPI - General Adult General Chief complaint: General Medical Stated complaint: ALCOHOL WITHDRAWAL Time Seen by Provider: 09/15/22 10:20 Source: patient and EMS Mode of arrival: EMS Limitations: no limitations History of Present Illness HPI narrative: 32-year-old female with alcohol use disorder, acute alcoholic hepatitis s/p liver transplant (1 year ago at [facility]) with ongoing alcohol abuse who presents to the ER for evaluation of alcohol withdrawal, increased abdominal pain. Patient states she usually drinks 20 nips per day, about 5 of them in intervals throughout the day. She last had 2 nips at 4am and is feeling like she is already going through withdrawal. She reports tremors and increased anxiety. She states her liver started feeling about 3 months ago. She stopped taking her Prograf and prednisone about 3 weeks ago. She reports her transplant doctor at [facility] told her she was going to . She denies ever being to rehab for her alcohol abuse or dependence. She reports vomiting for the last couple of days as well as intermittent bouts of bright red blood in her stool for the last couple of weeks. She was seen here in the emergency department on 09/11 for similar complaints, was admitted and then left against medical advice. She states she often leaves hospital against medical advice because her pain and symptoms are not treated appropriately. She feels hopeless and helpless. She does not want to and denies any suicidal ideation. complaint: Alcohol withdrawal and abdominal pain Onset (ago): day(s) Location: abdomen Radiation: non-radiation Severity: moderate Severity scale (1-10): 7 Quality: stabbing and aching Pain Consistency: constant Relieving factors: none Exacerbating factors: none Associated symptoms: diaphoresis, loss of appetite, malaise and nausea/vomiting Treatments prior to arrival: none Related Data Home Medications Medication Instructions Recorded Confirmed tacrolimus 1 mg capsule, 2 mg PO Q12H 01/16/22 09/11/22 immediate-release Previous Rx's Medication Instructions Recorded albuterol sulfate 90 mcg/actuation 2 puff inhalation Q4-6H PRN for 02/20/22 aerosol inhaler wheezing #8.5 ea prednisone 5 mg tablet 5 mg PO DAILY #30 tabs 08/16/22 tacrolimus 5 mg capsule, 5 mg PO Q12H #60 caps 08/16/22 immediate-release Allergies Allergy/AdvReac Type Severity Reaction Status Date / Time acetaminophen [From Vicodin] Allergy Intermediate hives Verified 09/11/22 10:26 hydrocodone [From Vicodin] Allergy Intermediate hives Verified 09/11/22 10:26 tramadol Allergy Intermediate hives Verified 09/11/22 10:26 banana [BANANA] AdvReac Severe DIFFICULTY Verified 09/11/22 10:26 BREATHING seafood AdvReac Hives Verified 09/11/22 10:26 Review of Systems Review of Systems: Constitutional: No Fever, No Chills ENT/Mouth: No sore throat, No Rhinorrhea, No Swallowing Difficulty Eyes: No Eye Pain, No Swelling, No Redness Cardiovascular: No Chest Pain, No SOB, No Orthopnea, No Edema Respiratory: No Cough, No Sputum, No Wheezing, No dyspnea Gastrointestinal: + Nausea, + Vomiting, + Diarrhea, + abdominal Pain, + Hematochezia, No Melena Genitourinary: No Dysuria, No Urinary Frequency, No Hematuria, +orange urine Musculoskeletal: No joint pain, No Myalgias Skin: No Skin Lesions, No rash Neuro: No Weakness, No Numbness, No Dizziness, No Headache Psych: + Anxiety/Panic, + Depression Heme/Lymph: No Bruising, No Lymphadenopathy Endocrine: No Polyuria, No Polydipsia PMFSH Past Medical History 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 Asthma CHF (congestive heart failure) Chiari malformation CVA (cerebral vascular accident) Depression Depression with anxiety GI bleed Hepatitis C Hypokalemia Liver failure Liver transplant planned NSVT (nonsustained ventricular tachycardia) Orthostatic hypotension Peptic ulcer disease Seizures Surgical History Gastric bypass status for obesity History of liver transplant Hx of cholecystectomy Family History Family History Father Liver failure Kidney failure History of heart attack Mother Diabetes HTN (hypertension) Social History Social History Household Members: Family Housing: House Do you presently have visiting nurse or other home services: No Unable to assess alcohol history related to: Refusing to respond Alcohol intake: current Alcohol intake frequency: 3 or more drinks per day Alcohol type: hard liquor Patient Tobacco Use Status: Current everyday Tobacco user Tobacco use type: Cigarette Cigarette Packs Per Day: 0.5 Cigarettes Per Day: 10.0 Years Smoked: 12 Smoked in Last 30 Days: No e-Cigarette/Vaping Use: Never Used Second Hand Smoke Exposure: Yes Substance Use Type: Marijuana Advance Directives: Yes Advance Directives on File: Yes Advance Directives Date on File: 07/27/22 Patient : No service: No Current occupational status: disabled Cognitive needs: No Hearing needs: No Vision needs: No Physical Exam ED Vital Signs: Vital Signs - 24 hr 09/15/22 09:48 09/15/22 12:44 09/15/22 15:39 Temperature 98.0 F 98.3 F 98.7 F Pulse Rate 103 H 100 95 Respiratory Rate 18 20 18 Blood Pressure 98/61 92/65 96/55 L Pulse Oximetry 97 99 98 Oxygen Delivery Method Room Air Room Air Room Air BMI result Body Mass Index 20.9 Appearance: Alert. Oriented X3. No acute distress. Eyes: Mild scleral icterus. Pupils equal, round and reactive to light. ENT: Pharynx normal. Neck: Normal inspection. Neck supple. CVS: Normal heart rate and rhythm. Pulses normal. Respiratory: No respiratory distress. Breath sounds normal. Abdomen: Well healed surgical scar over right side of her abdomen c/w previous liver transplant. +hepatomegaly with diffuse tenderness of the RUQ and epigastric area. normal +BS x4 Skin: Skin warm and dry. Normal skin color. Normal skin turgor. No rashes. Extremities: No lower extremity edema. Mild UE tremor. Neuro: Oriented X 3. No motor deficit. No sensory deficit. Course Course Course Narrative: 32 yo female with longstanding history of ETOH abuse/dependence, s/p liver transplant 1 year ago with ongoing alcohol abuse and recurrent liver failure x3 months with new rejection medication noncompliance who presents with ETOH withdrawal. Tremulous and tachycardic on arrival. Only drank 2 of her usual 5 nips early this morning. We had lengthy discussion about her alcohol depenedence and abuse, its affect on her liver, med noncompliance and leaving multiple hospitals AMA. She is afraid to and adamantly denies suicidal ideation. She states she wants help. She had hepatomegaly on exam with recent CT showing severe hepatic steatosis and increase size of the liver from 21 to 25 cm. Will get right upper quadrant ultrasound with Doppler to rule out portal vein thrombosis. Will repeat lab workup, treat her ETOH withdrawal with load of IV phenobarbital. She is agreeable to admission at this time. Reevaluation(s) Reevaluation #1: Labs show a stable macrocytic anemia with platelets 131. She has mild hypokalemia and hypomagnesemia. Her liver function tests have continue to worsen. Her transaminitis is consistent with acute alcoholic hepatitis. She has normal kidney function, do not anticipate her discriminate function will be greater than 32 to require IV steroids. Will check coags. She is reporting only transient improvement in her right upper quadrant pain with the fentanyl. She is asking for additional pain management. Ultrasound is still pending. Reevaluation #2: Ultrasound without PVT. Pain and anxiety are improved after dose of librium and repeat fentanyl. She is agreeable to admission. We discussed importance of not leaving AMA, going through safe withdrawal and detox. She agrees. Medications Administered Discontinued Medications Generic Name Dose Route Start Last Admin Trade Name Harinderq PRN Reason Stop Dose Admin Chlordiazepoxide HCl 50 mg 09/15/22 13:59 09/15/22 14:08 Chlordiazepoxide Hcl 25 Mg Capsule PO 09/15/22 14:00 50 mg ONCE ONE Administration Fentanyl 50 mcg 09/15/22 10:38 09/15/22 10:51 Fentanyl Citrate/Pf 100 Mcg/2 Ml Vial IVPUSH 09/15/22 10:39 50 mcg ONCE ONE Administration Protocol Fentanyl 50 mcg 09/15/22 13:59 09/15/22 14:08 Fentanyl Citrate/Pf 100 Mcg/2 Ml Vial IVPUSH 09/15/22 14:00 50 mcg ONCE ONE Administration Protocol Sodium Chloride 1,000 mls @ 999 mls/hr 09/15/22 10:30 09/15/22 13:38 Ns IVCONT 09/15/22 11:30 Infused .Q1H1M ALTHEA Infusion Magnesium Sulfate 2 gm in 50 mls @ 25 mls/hr 09/15/22 11:41 09/15/22 15:53 Magnesium Sulfate/H2o IV 09/15/22 13:40 Infused ONCE ONE Infusion Ondansetron HCl 4 mg 09/15/22 13:09 09/15/22 13:33 Ondansetron Hcl 4 Mg/2 Ml Vial IVPUSH 09/15/22 13:10 4 mg ONCE ONE Administration Phenobarbital Sodium 130 mg 09/15/22 10:38 09/15/22 10:52 Phenobarbital Sodium 130 Mg/Ml Vial IVPUSH 09/15/22 10:39 130 mg ONCE ONE Administration Medical Decision Making Lab Data Result diagrams: 09/15/22 10:59 09/15/22 10:59 Labs: Lab Results 09/15/22 09/15/22 09/15/22 Range/Units 10:59 10:59 10:59 WBC 7.2 (4.8-10.8) X10*3/uL RBC 3.01 L (4.20-5.50) X10*6/uL Hgb 11.1 L (12.0-16.0) g/dl Hct 32.6 L (37.0-47.0) % MCV 108.3 H (80.0-98.0) fL MCH 36.9 H (27.0-33.0) pg MCHC 34.0 (31.0-35.0) g/dl RDW 15.5 (11.0-16.0) % Plt Count 131 L D (160-400) X10*3/uL MPV 8.8 L (9.4-12.3) fL Immature Gran % (Auto) 0.6 H (0.0-0.4) % Neut % (Auto) 76.2 H (45-73) % Lymph % (Auto) 11.8 L (20-40) % [place] % (Auto) 8.8 (2-11) % Eos % (Auto) 1.8 (0-4) % Baso % (Auto) 0.8 (0-2) % Lymph # (Auto) 0.9 L (1.2-4.9) X10*3/uL [place] # (Auto) 0.6 (0.1-1.2) X10*3/uL Eos # (Auto) 0.1 (0.0-0.4) X10*3/uL Baso # (Auto) 0.1 (0.0-0.2) X10*3/uL Abs Immat Gran (auto) 0.04 H (0.00-0.03) X10*3/uL Absolute Neuts (auto) 5.5 (2.0-8.3) x10*3/uL Absolute Nucleated RBC 0.000 (0.0-0.012) X10*3/uL Nucleated RBC % (auto) 0.0 (0.0-0.2) /100WBC Sodium 139 (135-145) mmol/L Potassium 3.2 L (3.3-5.1) mmol/L Chloride 99 (96-108) mmol/L Carbon Dioxide 26 (22-29) mmol/L Anion Gap 17 (12-20) BUN 6 L (9-16) mg/dL Creatinine 0.62 (0.5-1.4) mg/dL Estim Creat Clear Calc 121.2 Estimated GFR > 60 Random Glucose 91 (60-115) mg/dL Calcium 8.3 L (8.4-10.2) mg/dL Magnesium 1.3 L* (1.6-2.6) mg/dL Total Bilirubin 3.5 H (0.0-1.0) mg/dL Direct Bilirubin 2.4 H (0.0-0.5) mg/dL AST 336 H (5-31) U/L ALT 73 H (0-31) U/L Alkaline Phosphatase 531 H (39-117) U/L Ammonia 33 (13-55) umol/L Total Protein 5.8 L (6.5-8.0) g/dL Albumin 3.1 L (3.5-5.0) g/dL Lipase 17 (8-78) U/L Urine Color Urine Appearance Urine pH (5.0-9.0) Ur Specific [place] (1.005-1.025) Urine Protein (Neg-Trace) mg/dL Urine Glucose (UA) (Negative) mg/dL Urine Ketones (Negative) mg/dL Urine Blood (Negative) Urine Nitrite (Negative) Ur Leukocyte Esterase (Negative) Urine RBC (0-2) /HPF Urine WBC (0-5) /HPF Ur Squamous Epith Cells (0-2) /HPF Urine Bacteria (None Seen) Hyaline Casts (0-2) /LPF Urine Opiates Screen (Not Detect) Urine Fentanyl Screen (Not Detect) Ur Barbiturates Screen (Not Detect) Ur Phencyclidine Scrn (Not Detect) Ur Amphetamines Screen (Not Detect) U Benzodiazepines Scrn (Not Detect) Urine Cocaine Screen (Not Detect) U Marijuana (THC) Screen (Not Detect) Ethyl Alcohol 196 mg/dL COVID-19 ([facility]) (Negative) COVID-19 Clin Com 09/15/22 09/15/22 09/15/22 Range/Units 11:00 11:07 11:08 WBC (4.8-10.8) X10*3/uL RBC (4.20-5.50) X10*6/uL Hgb (12.0-16.0) g/dl Hct (37.0-47.0) % MCV (80.0-98.0) fL MCH (27.0-33.0) pg MCHC (31.0-35.0) g/dl RDW (11.0-16.0) % Plt Count (160-400) X10*3/uL MPV (9.4-12.3) fL Immature Gran % (Auto) (0.0-0.4) % Neut % (Auto) (45-73) % Lymph % (Auto) (20-40) % [place] % (Auto) (2-11) % Eos % (Auto) (0-4) % Baso % (Auto) (0-2) % Lymph # (Auto) (1.2-4.9) X10*3/uL [place] # (Auto) (0.1-1.2) X10*3/uL Eos # (Auto) (0.0-0.4) X10*3/uL Baso # (Auto) (0.0-0.2) X10*3/uL Abs Immat Gran (auto) (0.00-0.03) X10*3/uL Absolute Neuts (auto) (2.0-8.3) x10*3/uL Absolute Nucleated RBC (0.0-0.012) X10*3/uL Nucleated RBC % (auto) (0.0-0.2) /100WBC Sodium (135-145) mmol/L Potassium (3.3-5.1) mmol/L Chloride (96-108) mmol/L Carbon Dioxide (22-29) mmol/L Anion Gap (12-20) BUN (9-16) mg/dL Creatinine (0.5-1.4) mg/dL Estim Creat Clear Calc Estimated GFR Random Glucose (60-115) mg/dL Calcium (8.4-10.2) mg/dL Magnesium (1.6-2.6) mg/dL Total Bilirubin (0.0-1.0) mg/dL Direct Bilirubin (0.0-0.5) mg/dL AST (5-31) U/L ALT (0-31) U/L Alkaline Phosphatase (39-117) U/L Ammonia (13-55) umol/L Total Protein (6.5-8.0) g/dL Albumin (3.5-5.0) g/dL Lipase (8-78) U/L Urine Color ORANGE Urine Appearance Clear Urine pH 6.5 (5.0-9.0) Ur Specific [place] 1.025 (1.005-1.025) Urine Protein 100 (2+) H (Neg-Trace) mg/dL Urine Glucose (UA) 100 H (Negative) mg/dL Urine Ketones 15 (Negative) mg/dL Urine Blood Negative (Negative) Urine Nitrite See Note (Negative) Ur Leukocyte Esterase See Note (Negative) Urine RBC 0-2 (0-2) /HPF Urine WBC 0-5 (0-5) /HPF Ur Squamous Epith Cells 3-5 (0-2) /HPF Urine Bacteria Trace (None Seen) Hyaline Casts 0-2 (0-2) /LPF Urine Opiates Screen Not Detected (Not Detect) Urine Fentanyl Screen Not Detected (Not Detect) Ur Barbiturates Screen POSITIVE H (Not Detect) Ur Phencyclidine Scrn Not Detected (Not Detect) Ur Amphetamines Screen Not Detected (Not Detect) U Benzodiazepines Scrn POSITIVE H (Not Detect) Urine Cocaine Screen Not Detected (Not Detect) U Marijuana (THC) Screen POSITIVE H (Not Detect) Ethyl Alcohol mg/dL COVID-19 ([facility]) Negative (Negative) COVID-19 Clin Com See Note Critical Care Time Critical Care Time Critical Care Time: Yes Total Critical Care Time: 36 Attestation: I have personally provided critical care time exclusive of time spent on separately billable procedures. Time includes review of lab data, radiology results, discussion with consultants, and monitoring for potential decompensation. Intervention performed as documented. Discharge Plan Discharge Clinical Impression: Alcohol withdrawal, Acute alcoholic hepatitis, Hypomagnesemia, Acute hypokalemia Patient Disposition: Admitted As Inpatient
[2022-09-15] MEDS: fentaNYL citrate/PF 100 MCG/2 ML VIAL 50 MCG IVPUSH ×2 (10:51→14:08)
[2022-09-15] MEDS: PHENobarbitaL sodium 130 MG/ML VIAL IVPUSH (10:52)
[2022-09-15] MEDS: 0.9 % Sodium Chloride 1,000 ML 999 ML IVCONT (10:52)
[2022-09-15 11:06] LABS: MANUAL DIFF FLAG NO
--- NOTE | 2022-09-15 11:06 | PC.NURSE ---
patient a/ox4 . pearrla , yellow sclera . heart rate regular at 99 beats per minute . skin yellowish and dry . abdomen soft . rebound tenderness noted on right side patient reports 8 out of 10 pain level ..positive bowel sounds noted through out . scare noted on right side of abdomen where patient had liver transplant 1 year ago in June . Patient currently stopped taking her antiviral medication and is drinking ETOH daily has history of ETOH dependency . Patient reports last drink of alcohol at 4 am . IV placed in right top of foot . Labs and urine obtained and sent for analysis . Patient medicated for pain 50 mcg fentyl IVP and 130 mg of phenobarbital for ETOH detox . patient aware of plan of care .
[2022-09-15 11:07] LABS: Basophils Absolute Auto 0.1 X10*3/uL (0.0-0.2); Basophils Percent Auto 0.8 % (0-2); Eosinophils Absolute Auto 0.1 X10*3/uL (0.0-0.4); Eosinophils Percent Auto 1.8 % (0-4); Hematocrit 32.6 % (37.0-47.0); Hemoglobin 11.1 g/dl (12.0-16.0); Imm Gran Abs Auto 0.04 X10*3/uL (0.00-0.03); Imm Gran Pct Auto 0.6 % (0.0-0.4); Lymphocytes Absolute Auto 0.9 X10*3/uL (1.2-4.9); Lymphocytes Percent Auto 11.8 % (20-40); Mean Corpuscular Hemoglobin 36.9 pg (27.0-33.0); Mean Corpuscular Volume 108.3 fL (80.0-98.0); Mean Platelet Volume 8.8 fL (9.4-12.3); Monocytes Absolute Auto 0.6 X10*3/uL (0.1-1.2); Monocytes Percent Auto 8.8 % (2-11); Neutrophils Absolute Auto 5.5 x10*3/uL (2.0-8.3); Neutrophils Percent Auto 76.2 % (45-73); Red Blood Count 3.01 X10*6/uL (4.20-5.50); Red Cell Distribution Width 15.5 % (11.0-16.0); White Blood Count 7.2 X10*3/uL (4.8-10.8)
[2022-09-15 11:16] LABS: Ammonia 33 umol/L (13-55)
[2022-09-15 11:18] LABS: Appearance Urine Clear; Color Urine ORANGE; Glucose Urine UA 100 mg/dL (Negative); PH 6.5 (5.0-9.0); Specific Gravity - Urine 1.025 (1.005-1.025); UMIC TRIGGER UACC YES; Urine Blood Negative (Negative); Urine Ketones 15 mg/dL (Negative); Urine Protein 100 (2+) mg/dL (Neg-Trace)
[2022-09-15 11:20] LABS: Platelet Count 131 X10*3/uL (160-400)
[2022-09-15 11:22] LABS: COVID-19 Test Negative (Negative); IDNOW Serial# 16C4AD1C
[2022-09-15 11:27] LABS: Amphetamine Screen Urine Not Detected (Not Detect); Barbiturates, Urine POSITIVE (Not Detect); Benzodiazepines Screen Urine POSITIVE (Not Detect); Cannabinoid Screen Urine POSITIVE (Not Detect); Cocaine Screen Urine Not Detected (Not Detect); Fentanyl, urine Not Detected (Not Detect); Opiate Screen Urine Not Detected (Not Detect); Phencyclidine Screen Urine Not Detected (Not Detect)
[2022-09-15 11:29] LABS: Hyaline Casts Urine 0-2 /LPF (0-2)
[2022-09-15 11:30] LABS: Bacteria Urine Trace (None Seen); RBC Urine 0-2 /HPF (0-2); WBC Urine 0-5 /HPF (0-5)
[2022-09-15 11:41] LABS: Alanine Aminotransferase 73 U/L (0-31); Albumin Level 3.1 g/dL (3.5-5.0); Alkaline Phosphatase 531 U/L (39-117); Anion Gap 17 (12-20); Aspartate Amino Transferase 336 U/L (5-31); Bilirubin Direct 2.4 mg/dL (0.0-0.5); Bilirubin Total 3.5 mg/dL (0.0-1.0); Blood Urea Nitrogen 6 mg/dL (9-16); Calcium 8.3 mg/dL (8.4-10.2); Carbon Dioxide 26 mmol/L (22-29); Chloride 99 mmol/L (96-108); Creatinine Clr Calc Pharmacy 121.2; Estimated Glomerular Filt Rate > 60; Ethanol 196 mg/dL; Glucose Random 91 mg/dL (60-115); Lipase 17 U/L (8-78); Magnesium 1.3 mg/dL (1.6-2.6); Potassium 3.2 mmol/L (3.3-5.1); Sodium 139 mmol/L (135-145); Total Protein 5.8 g/dL (6.5-8.0)
--- NOTE | 2022-09-15 12:29 | PC.NURSE ---
Ultrasound at bedside . patient aware of plan of care .
[2022-09-15 12:44] VITALS: BP 92/65; PULSE 100; RESP 20; TEMP 36.8; O2SAT 99
[2022-09-15] MEDS: ondansetron HCL 4 MG/2 ML VIAL IVPUSH (13:33)
[2022-09-15] MEDS: Magnesium Sulfate/H2O 2 GM/50 ML PIGGYBACK IV (13:33)
[2022-09-15] MEDS: chlordiazePOXIDE HCl 25 MG CAPSULE 50 MG PO (14:08)
[2022-09-15 15:39] VITALS: BP 96/55; PULSE 95; RESP 18; TEMP 37.1; O2SAT 98
--- NOTE | 2022-09-15 16:04 | PC.NURSE ---
this pct assumed care of pt at 1500 ,blood draw and vitals sign taken ,warm blanket given ,pt boyfriend at bedside ,call [facility] within reach .
--- NOTE | 2022-09-15 16:06 | PHA.MEDREC ---
Pharmacy Consult ? Medication Reconciliation Pharmacy has completed the medication reconciliation.
[2022-09-15 16:09] LABS: INTERNATIONAL NORM RATIO 1.1 (0.9-1.1); Prothrombin Time 12.1 SEC (10.0-13.1)
[2022-09-15 16:11] LABS: Partial Thromboplastin Time 29.4 SEC (26.0-36.4)
[2022-09-15] MEDS: Potassium Chloride ER 20 MEQ TAB.ER.PRT 40 MEQ PO (16:22)
--- NOTE | 2022-09-15 16:28 | P.HPHOSP_ITS ---
History of Present Illness Date of Service: 09/15/22 Chief Complaint: alcohol withdrawal 32-year-old female alcohol dependence, cirrhosis of the liver s/p liver transplant, active alcohol use, and has not been taking her medication. She was admitted recently on 09/11 with issues related to alcohol withdrawal, abdominal pain, nausea and vomitting. She left left AMA hours later. She returns to the ED today with similar complaint of abdominal pain in the epigastric area, associated with nausea and vomitting. She feels generally weak. Labs work show potassium of 3.2, magnesium of 1.3. She has been given Fentanyl, librium and Phenobarbital in the ED. Her tox screen is noted for marijuana, benzo and barbiturate. She says she has not been taking her medications for 2 week because I am too busy drinking Review of Systems Review of Systems: Gen: no fever Resp: no sob, no cough CV: no chest, no FATIMA, no leg edema GI: +n/v,+ abd pain Neuro: No confusion [facility] 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 Asthma CHF (congestive heart failure) Chiari malformation CVA (cerebral vascular accident) Depression Depression with anxiety GI bleed Hepatitis C Hypokalemia Liver failure Liver transplant planned NSVT (nonsustained ventricular tachycardia) Orthostatic hypotension Peptic ulcer disease Seizures Family History Father Liver failure Kidney failure History of heart attack Mother Diabetes HTN (hypertension) Surgical History Gastric bypass status for obesity History of liver transplant Hx of cholecystectomy Social History Household Members: Family Housing: House Do you presently have visiting nurse or other home services: No Unable to assess alcohol history related to: Refusing to respond Alcohol intake: current Alcohol intake frequency: 3 or more drinks per day Alcohol type: hard liquor Patient Tobacco Use Status: Current everyday Tobacco user Tobacco use type: Cigarette Cigarette Packs Per Day: 0.5 Cigarettes Per Day: 10.0 Years Smoked: 12 Smoked in Last 30 Days: No e-Cigarette/Vaping Use: Never Used Second Hand Smoke Exposure: Yes Substance Use Type: Marijuana Advance Directives: Yes Advance Directives on File: Yes Advance Directives Date on File: 07/27/22 Patient : No service: No Current occupational status: disabled Cognitive needs: No Hearing needs: No Vision needs: No Meds Allergies Allergy/AdvReac Type Severity Reaction Status Date / Time acetaminophen [From Vicodin] Allergy Intermediate hives Verified 09/11/22 10:26 hydrocodone [From Vicodin] Allergy Intermediate hives Verified 09/11/22 10:26 tramadol Allergy Intermediate hives Verified 09/11/22 10:26 banana [BANANA] AdvReac Severe DIFFICULTY Verified 09/11/22 10:26 BREATHING seafood AdvReac Hives Verified 09/11/22 10:26 Active Medications: Current Medications Pharmacy Consult (Consult Rx Perform Med Rec) 1 each MISCELLANE ONCE PRN PRN Reason: Consult order Home Medications Medication Instructions Recorded Confirmed Last Taken Type tacrolimus 1 mg capsule, 2 mg PO BID 01/16/22 09/15/22 09/15/22 History immediate-release tacrolimus 5 mg capsule, 5 mg PO BID 09/15/22 09/15/22 09/15/22 History immediate-release trazodone 50 mg tablet 50 mg PO BEDTIME 09/15/22 09/15/22 09/14/22 History Physical Exam Vital Signs and Narrative: Vital Signs: Last Vital Signs Temp 98.7 F 09/15/22 15:39 Pulse 95 09/15/22 15:39 Resp 18 09/15/22 15:39 BP 96/55 L 09/15/22 15:39 Pulse Ox 98 09/15/22 15:39 O2 Del Method 09/15/22 15:39 BMI result Body Mass Index 20.9 Const: Other: Constitutional: Alert, in no distress Mental Status: Oriented to person, place and time. Eyes: Pupils are equal, round and reactive to light, sclear icteris Ear, Nose and Throat: Oropharynx clear, mucous membranes moist. Ears and nose without. Trachea midline. Respiratory: Clear to auscultation. No wheezing, rales or rhonchi. Cardiovascular: S1 S2 regular. No murmurs, rubs or gallops. Gastrointestinal: Abdomen soft, non-tender, non-distended. Normal bowel sounds.? Neurologic: Cranial nerves II-XII grossly intact. No focal neurological deficits. Moves all extremities spontaneously.? Skin: No rashes or lesions.? Musculoskeletal: No cyanosis or clubbing. Psychiatric: Normal mood and affect? Results Labs CBC and Chem 7: 09/15/22 10:59 09/15/22 10:59 Labs: Laboratory Results - last 24 hr 09/15/22 09/15/22 09/15/22 10:59 10:59 10:59 MCV 108.3 H MCH 36.9 H MCHC 34.0 RDW 15.5 Plt Count 131 L D MPV 8.8 L Immature Gran % (Auto) 0.6 H Neut % (Auto) 76.2 H Lymph % (Auto) 11.[address] [place] % (Auto) 8.8 Eos % (Auto) 1.8 Baso % (Auto) 0.8 Lymph # (Auto) 0.[address] [place] # (Auto) 0.6 Eos # (Auto) 0.1 Baso # (Auto) 0.1 Abs Immat Gran (auto) 0.04 H Absolute Neuts (auto) 5.5 Absolute Nucleated RBC 0.000 Nucleated RBC % (auto) 0.0 PT INR APTT Anion Gap 17 Estim Creat Clear Calc 121.2 Estimated GFR > 60 Random Glucose 91 Calcium 8.3 L Magnesium 1.3 L* Total Bilirubin 3.5 H Direct Bilirubin 2.4 H AST 336 H ALT 73 H Alkaline Phosphatase 531 H Ammonia 33 Total Protein 5.8 L Albumin 3.1 L Lipase 17 Urine Color Urine Appearance Urine pH Ur Specific [place] Urine Protein Urine Glucose (UA) Urine Ketones Urine Blood Urine Nitrite Ur Leukocyte Esterase Urine RBC Urine WBC Ur Squamous Epith Cells Urine Bacteria Hyaline Casts Urine Opiates Screen Urine Fentanyl Screen Ur Barbiturates Screen Ur Phencyclidine Scrn Ur Amphetamines Screen U Benzodiazepines Scrn Urine Cocaine Screen U Marijuana (THC) Screen Ethyl Alcohol 196 COVID-19 ([facility]) COVID-19 Clin Com 09/15/22 09/15/22 09/15/22 11:00 11:07 11:08 MCV MCH MCHC RDW Plt Count MPV Immature Gran % (Auto) Neut % (Auto) Lymph % (Auto) [place] % (Auto) Eos % (Auto) Baso % (Auto) Lymph # (Auto) [place] # (Auto) Eos # (Auto) Baso # (Auto) Abs Immat Gran (auto) Absolute Neuts (auto) Absolute Nucleated RBC Nucleated RBC % (auto) PT INR APTT Anion Gap Estim Creat Clear Calc Estimated GFR Random Glucose Calcium Magnesium Total Bilirubin Direct Bilirubin AST ALT Alkaline Phosphatase Ammonia Total Protein Albumin Lipase Urine Color ORANGE Urine Appearance Clear Urine pH 6.5 Ur Specific [place] 1.025 Urine Protein 100 (2+) H Urine Glucose (UA) 100 H Urine Ketones 15 Urine Blood Negative Urine Nitrite See Note Ur Leukocyte Esterase See Note Urine RBC 0-2 Urine WBC 0-5 Ur Squamous Epith Cells 3-5 Urine Bacteria Trace Hyaline Casts 0-2 Urine Opiates Screen Not Detected Urine Fentanyl Screen Not Detected Ur Barbiturates Screen POSITIVE H Ur Phencyclidine Scrn Not Detected Ur Amphetamines Screen Not Detected U Benzodiazepines Scrn POSITIVE H Urine Cocaine Screen Not Detected U Marijuana (THC) Screen POSITIVE H Ethyl Alcohol COVID-19 ([facility]) Negative COVID-19 Clin Com See Note 09/15/22 15:54 MCV MCH MCHC RDW Plt Count MPV Immature Gran % (Auto) Neut % (Auto) Lymph % (Auto) [place] % (Auto) Eos % (Auto) Baso % (Auto) Lymph # (Auto) [place] # (Auto) Eos # (Auto) Baso # (Auto) Abs Immat Gran (auto) Absolute Neuts (auto) Absolute Nucleated RBC Nucleated RBC % (auto) PT 12.1 INR 1.1 APTT 29.4 Anion Gap Estim Creat Clear Calc Estimated GFR Random Glucose Calcium Magnesium Total Bilirubin Direct Bilirubin AST ALT Alkaline Phosphatase Ammonia Total Protein Albumin Lipase Urine Color Urine Appearance Urine pH Ur Specific [place] Urine Protein Urine Glucose (UA) Urine Ketones Urine Blood Urine Nitrite Ur Leukocyte Esterase Urine RBC Urine WBC Ur Squamous Epith Cells Urine Bacteria Hyaline Casts Urine Opiates Screen Urine Fentanyl Screen Ur Barbiturates Screen Ur Phencyclidine Scrn Ur Amphetamines Screen U Benzodiazepines Scrn Urine Cocaine Screen U Marijuana (THC) Screen Ethyl Alcohol COVID-19 ([facility]) COVID-19 Clin Com Imaging Radiologist's Impressions: Impressions Doppler Study Ultrasound 09/15/22 12:38 IMPRESSION: Normal liver Doppler exam. No evidence of portal vein thrombus. Assessment and Plan (1) Alcohol withdrawal: Status: Acute Plan 32 year old female with alcohol dependence, s/p liver transplant d/t cirrhosis here with epigastric pain, n/v and, low K, low mag and early sings of alcohol withdrawal 1/Alcohol withdrawal--she has been give Librium and Phenobarb in ED, will continue Phenbarb protocol, thiame and folate replacement 2/N/V, epigastric--likely from alcoholic gastirits -IV PP -GI consult for consideration of EGD -pain meds, avoid NSAID -Hydroxyzine for anxiety 4/Hypokalemia--oral replacement and repeat labs tomorrow 3/Hypomagnesemia--d/t alcoholism, IV replacement and repeat tomorrow 4/s/p Liver transplant--she has not been taking meds (Prednisone, tacrolimus)--restart and GI to comment on this Quality Stroke Does the patient have a stroke diagnosis?: No VTE Prior VTE?: No VTE Risk Level:: Medical - low VTE Device Contraindication: Treatment Not Indicated VTE Drug Contraindication: Patient Refused
[2022-09-15] MEDS: Dextrose 5 % and 0.45 % NaCl 1,000 ML 100 ML IVCONT (17:10)
[2022-09-15] MEDS: PHENobarbitaL sodium 130 MG/ML IM ONCE 190 MG IM (17:45)
[2022-09-15] MEDS: predniSONE 5 MG TABLET PO (17:45)
[2022-09-15] MEDS: Pantoprazole Sodium 40 MG/10 ML VIAL IVPUSH (17:45)
[2022-09-15] MEDS: hydrOXYzine HCL 25 MG TABLET PO (18:35)
--- NOTE | 2022-09-15 18:45 | PC.NURSE ---
patient having increased anxiety . pacing ED . medicated with atarax as ordered PRN . patient aware of plan of care .
[2022-09-15 20:00] VITALS: BP 109/72; PULSE 117; RESP 16; TEMP 37.1; O2SAT 97
--- NOTE | 2022-09-15 20:35 | PC.NURSE ---
pt has pulled her off her ivf, pt has been yelling out to staff, security present and understands pt situation at this time no intervention with security needed. pt has pain to her right upper abd. pt seen ambulating to bathroom with steady giat. right foot iv flushed and wnl.
[2022-09-15 20:41] VITALS: BP 109/72; PULSE 114; RESP 16
--- NOTE | 2022-09-15 21:34 | PC.NURSE ---
pt wants to leave ama, hospitalist on the floor at this time and has been made aware. pt is refusing medications and ivf. pt has a headache and is seeking medication for the headache. phenobar held till Osorio says it is ok to give if pt is leaving ama. pt is alert and oriented x4. skin pink warm and dry.
--- NOTE | 2022-09-15 21:39 | PC.NURSE ---
hospitalist on his way over to pt room and pt was not present. iv laying on the bed removed by the pt. pt eloped.
--- NOTE | 2022-09-16 08:49 | PM.DS ---
DS: Providers Provider Date of Service: 09/15/22 Date of admission: 09/15/22 16:50 Primary care physician: Alana Duarte NP Consults: 09/15/22 16:53 Consult to Gastroenterology Routine Consulting Provider: Hemant Pemberton Reason for consultation: Alcoholic gastritis Has provider been notified: No DS: Diagnosis Discharge Diagnosis (1) Alcohol withdrawal: Status: Acute DS: Summary Hospital Course Hospital Course: Patient was admitted for alcohol withdrawal, aclohol gastrititis, low K, low mag. She elopeed hours after admission Final diagnosess: alcohol withdrawal alcoholic gastritis hypokalemia hypomagnesemia Time Spent with Patient Time attestation: Total time spent providing and/or coordinating discharge services: Discharge coordination time: Less than 30 minutes Quality: Safe Use of Opioids Does Pt have an Active Cancer Diagnosis on the Problem List?: No Quality: Stroke Does the patient have a stroke diagnosis?: No Physical Exam Vital Signs: Vital Signs: Last Vital Signs Temp 98.8 F 09/15/22 20:00 Pulse 114 H 09/15/22 20:41 Resp 16 09/15/22 20:41 BP 109/72 09/15/22 20:41 Pulse Ox 97 09/15/22 20:00 O2 Del Method 09/15/22 20:00 BMI result Body Mass Index 20.9 DS: Data Data Completed and Pending Completed studies during hospitalization [Text1]: Procedures Control Bleeding in Gastrointestinal Tract, Via Natural or Artificial Opening Endoscopic (10/03/20) Detoxification Services for Substance Abuse Treatment (09/11/22) Drainage of Peritoneal Cavity with Drainage Device, Percutaneous Approach (11/05/20) Drainage of Peritoneal Cavity, Percutaneous Approach (12/01/20) Excision of Ascending Colon, Via Natural or Artificial Opening Endoscopic, Diagnostic (10/03/20) Excision of Stomach, Pylorus, Via Natural or Artificial Opening Endoscopic, Diagnostic (10/03/20) Transfusion of Nonautologous Red Blood Cells into Peripheral Vein, Percutaneous Approach (12/01/20) Labs on day of discharge: Laboratory Results - last 24 hr 09/15/22 09/15/22 09/15/22 10:59 10:59 10:59 WBC 7.2 RBC 3.01 L Hgb 11.1 L Hct 32.6 L MCV 108.3 H MCH 36.9 H MCHC 34.0 RDW 15.5 Plt Count 131 L D MPV 8.8 L Immature Gran % (Auto) 0.6 H Neut % (Auto) 76.2 H Lymph % (Auto) 11.8 L [place] % (Auto) 8.8 Eos % (Auto) 1.8 Baso % (Auto) 0.8 Lymph # (Auto) 0.9 L [place] # (Auto) 0.6 Eos # (Auto) 0.1 Baso # (Auto) 0.1 Abs Immat Gran (auto) 0.04 H Absolute Neuts (auto) 5.5 Absolute Nucleated RBC 0.000 Nucleated RBC % (auto) 0.0 PT INR APTT Sodium 139 Potassium 3.2 L Chloride 99 Carbon Dioxide 26 Anion Gap 17 BUN 6 L Creatinine 0.62 Estim Creat Clear Calc 121.2 Estimated GFR > 60 Random Glucose 91 Calcium 8.3 L Magnesium 1.3 L* Total Bilirubin 3.5 H Direct Bilirubin 2.4 H AST 336 H ALT 73 H Alkaline Phosphatase 531 H Ammonia 33 Total Protein 5.8 L Albumin 3.1 L Lipase 17 Urine Color Urine Appearance Urine pH Ur Specific [place] Urine Protein Urine Glucose (UA) Urine Ketones Urine Blood Urine Nitrite Ur Leukocyte Esterase Urine RBC Urine WBC Ur Squamous Epith Cells Urine Bacteria Hyaline Casts Urine Opiates Screen Urine Fentanyl Screen Ur Barbiturates Screen Ur Phencyclidine Scrn Ur Amphetamines Screen U Benzodiazepines Scrn Urine Cocaine Screen U Marijuana (THC) Screen Ethyl Alcohol 196 COVID-19 ([facility]) COVID-19 Clin Com 09/15/22 09/15/22 09/15/22 11:00 11:07 11:08 WBC RBC Hgb Hct MCV MCH MCHC RDW Plt Count MPV Immature Gran % (Auto) Neut % (Auto) Lymph % (Auto) [place] % (Auto) Eos % (Auto) Baso % (Auto) Lymph # (Auto) [place] # (Auto) Eos # (Auto) Baso # (Auto) Abs Immat Gran (auto) Absolute Neuts (auto) Absolute Nucleated RBC Nucleated RBC % (auto) PT INR APTT Sodium Potassium Chloride Carbon Dioxide Anion Gap BUN Creatinine Estim Creat Clear Calc Estimated GFR Random Glucose Calcium Magnesium Total Bilirubin Direct Bilirubin AST ALT Alkaline Phosphatase Ammonia Total Protein Albumin Lipase Urine Color ORANGE Urine Appearance Clear Urine pH 6.5 Ur Specific [place] 1.025 Urine Protein 100 (2+) H Urine Glucose (UA) 100 H Urine Ketones 15 Urine Blood Negative Urine Nitrite See Note Ur Leukocyte Esterase See Note Urine RBC 0-2 Urine WBC 0-5 Ur Squamous Epith Cells 3-5 Urine Bacteria Trace Hyaline Casts 0-2 Urine Opiates Screen Not Detected Urine Fentanyl Screen Not Detected Ur Barbiturates Screen POSITIVE H Ur Phencyclidine Scrn Not Detected Ur Amphetamines Screen Not Detected U Benzodiazepines Scrn POSITIVE H Urine Cocaine Screen Not Detected U Marijuana (THC) Screen POSITIVE H Ethyl Alcohol COVID-19 ([facility]) Negative COVID-19 Clin Com See Note 09/15/22 15:54 WBC RBC Hgb Hct MCV MCH MCHC RDW Plt Count MPV Immature Gran % (Auto) Neut % (Auto) Lymph % (Auto) [place] % (Auto) Eos % (Auto) Baso % (Auto) Lymph # (Auto) [place] # (Auto) Eos # (Auto) Baso # (Auto) Abs Immat Gran (auto) Absolute Neuts (auto) Absolute Nucleated RBC Nucleated RBC % (auto) PT 12.1 INR 1.1 APTT 29.4 Sodium Potassium Chloride Carbon Dioxide Anion Gap BUN Creatinine Estim Creat Clear Calc Estimated GFR Random Glucose Calcium Magnesium Total Bilirubin Direct Bilirubin AST ALT Alkaline Phosphatase Ammonia Total Protein Albumin Lipase Urine Color Urine Appearance Urine pH Ur Specific [place] Urine Protein Urine Glucose (UA) Urine Ketones Urine Blood Urine Nitrite Ur Leukocyte Esterase Urine RBC Urine WBC Ur Squamous Epith Cells Urine Bacteria Hyaline Casts Urine Opiates Screen Urine Fentanyl Screen Ur Barbiturates Screen Ur Phencyclidine Scrn Ur Amphetamines Screen U Benzodiazepines Scrn Urine Cocaine Screen U Marijuana (THC) Screen Ethyl Alcohol COVID-19 ([facility]) COVID-19 Clin Com Discharge Plan Discharge Anticipated Discharge Date/Time: 09/15/22 20:46 Patient Disposition: Left Against Medical Advice Discharge Diagnosis: Alcohol withdrawal, alcoholic gastritis Referrals: Alana Duarte NP [Primary Care Provider] - 1 Week Discharge Medications: No Action prednisone 5 mg tablet 5 mg PO DAILY Qty: 30 2RF trazodone 50 mg Tablet 50 mg PO BEDTIME tacrolimus 5 mg capsule 5 mg PO BID Rx Instructions: TOTAL OF 7 MG BID tacrolimus 1 mg capsule 2 mg PO BID Label Comments: with 5 mg cap for total dose of 7 mg daily Rx Instructions: TOTAL OF 7 MG BID Discharge Orders: Discharge Order (Routine); Ordered 09/15/22 Ordered By: Ben[facility] Care Plan Goals: Patient eloped Health Concerns: Patient eloped Plan of Treatment: Patient eloped Assessment: Patient eloped
--- NOTE | 2022-09-16 10:55 | MHC.CM.PN ---
Patient left AMA before being seen by case management.
== END 2022-09-15 22:00 | disposition left against medical advice (07) | DRG 441 ==
LOC: HO.ED 15:58 → HO.EDOVER 17:14
PROVIDERS: Physician Assistant; Admitting Provider Internal Medicine; Emergency Provider Emergency Medicine; PCP Hospitalist; Visit Provider Internal Medicine
DX: T86.49 Other complications of liver transplant (principal); K29.21 Alcoholic gastritis with bleeding; F10.239 Alcohol dependence with withdrawal, unspecified; I69.351 Hemiplegia and hemiparesis following cerebral infarction affecting right dominant side; K70.10 Alcoholic hepatitis without ascites; E83.42 Hypomagnesemia; Z98.84 Bariatric surgery status; F17.210 Nicotine dependence, cigarettes, uncomplicated; Z20.822 Contact with and (suspected) exposure to COVID-19; E87.6 Hypokalemia; Z71.6 Tobacco abuse counseling; Z91.14 Patient's other noncompliance with medication regimen; Z91.013 Allergy to seafood; Z88.5 Allergy status to narcotic agent; Z88.6 Allergy status to analgesic agent; Z79.52 Long term (current) use of systemic steroids; Z79.621 Long term (current) use of calcineurin inhibitor; Z79.899 Other long term (current) drug therapy
CPT/HCPCS: 36415; 80048; 80076; 80307; 81001; 82077; 82140; 83690; 83735; 85025; 85610; 85730; 87635; 93975; 99284; J2405; J2560; J3010; J3475

== ENCOUNTER 2022-10-13 13:25 | Emergency (ER) | payer OTHER, MEDICARE, MEDICAID, SELFPAY ==
--- NOTE | ~2022-10-13 | XR_ITS ---
EXAMINATION: XR CHEST CLINICAL INFORMATION: Weakness COMPARISON: 06/05/2022 TECHNIQUE: Frontal view of the chest was obtained. FINDINGS: The lungs are well expanded. There is no focal consolidation, edema, or effusion. Minimal left basilar linear atelectasis/scarring. No pneumothorax. The cardiomediastinal silhouette is within normal limits. No acute osseous abnormality. XR/XR chest 1V IMPRESSION: Minimal linear atelectasis/scarring at the left base. Otherwise clear lungs.
[2022-10-13 13:57] VITALS: BP 98/62; PULSE 93; RESP 16; TEMP 36.6; O2SAT 100; BMI 20.9
--- NOTE | 2022-10-13 14:02 | ED_ITS ---
HPI - General Adult General Chief complaint: Abdominal Pain Stated complaint: Swollen/numb feet/Liver issues Related Data Home Medications Medication Instructions Recorded Confirmed trazodone 50 mg tablet 100 mg PO BEDTIME PRN insomnia 09/25/22 Previous Rx's Medication Instructions Recorded diazepam 5 mg tablet (Valium) 5 mg PO TID PRN muscle spasm #21 09/25/22 tabs Allergies Allergy/AdvReac Type Severity Reaction Status Date / Time acetaminophen [From Vicodin] Allergy Intermediate hives Verified 10/13/22 14:01 hydrocodone [From Vicodin] Allergy Intermediate hives Verified 10/13/22 14:01 tramadol Allergy Intermediate hives Verified 10/13/22 14:01 banana [BANANA] AdvReac Severe DIFFICULTY Verified 10/13/22 14:01 BREATHING seafood AdvReac Hives Verified 10/13/22 14:01 PMFSH Past Medical History 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 Asthma CHF (congestive heart failure) Chiari malformation CVA (cerebral vascular accident) Depression Depression with anxiety GI bleed Hepatitis C Hypokalemia Liver failure Liver transplant planned NSVT (nonsustained ventricular tachycardia) Orthostatic hypotension Peptic ulcer disease Seizures Surgical History Gastric bypass status for obesity History of liver transplant Hx of cholecystectomy Family History Family History Father Liver failure Kidney failure History of heart attack Mother Diabetes HTN (hypertension) Social History Social History Household Members: Family Housing: House Do you presently have visiting nurse or other home services: No Unable to assess alcohol history related to: Refusing to respond Alcohol intake: current Alcohol intake frequency: 3 or more drinks per day Alcohol type: hard liquor Patient Tobacco Use Status: Current everyday Tobacco user Tobacco use type: Cigarette Cigarette Packs Per Day: 0.5 Cigarettes Per Day: 10.0 Years Smoked: 12 e-Cigarette/Vaping Use: Never Used Second Hand Smoke Exposure: Yes Substance Use Type: Marijuana Advance Directives: Yes Advance Directives on File: Yes Advance Directives Date on File: 07/27/22 service: No Current occupational status: disabled Cognitive needs: No Hearing needs: No Vision needs: No Physical Exam ED Vital Signs: Vital Signs - 24 hr 10/13/22 13:57 Temperature 97.8 F Pulse Rate 93 Respiratory Rate 16 Blood Pressure 98/62 Pulse Oximetry 100 Oxygen Delivery Method Room Air BMI result Body Mass Index 20.9 Course Course Course Narrative: AMY--32-year-old female with a past medical history of liver cirrhosis s/p liver transplant [address] [facility], reports liver started failing 4 months ago, currently on hospice presenting to the ED complaining of pins and needles in legs, generalized fatigue/weakness, blurry vision, unsteady gait, abdominal pain, nausea, vomiting, diarrhea x 2 weeks. Admits has been sober from alcohol x7 days. EKG, labs, UA, CXR, IVF ordered in triage Discharge Plan Discharge Clinical Impression: Abdominal pain Patient Disposition: Elopement Prescriptions: No Action trazodone 50 mg tablet 100 mg PO BEDTIME PRN (Reason: insomnia) diazepam [Valium] 5 mg tablet 5 mg PO TID PRN (Reason: muscle spasm) Qty: 21 0RF Interventions: LWBS Worksheet Last Done: 10/13/22 20:25 Discharge Date/Time: 10/13/22 20:26
--- NOTE | 2022-10-13 14:04 | ECG_ITS ---
Test Reason : WEAKNESS Blood Pressure : / mmHG Vent. Rate : 090 BPM Atrial Rate : 090 BPM P-R Int : 128 ms QRS Dur : 072 ms QT Int : 386 ms P-R-T Axes : 000 156 165 degrees QTc Int : 472 ms Normal sinus rhythm Right axis deviation Abnormal ECG When compared with ECG of 22-AUG-2022 18:05, QRS axis Shifted right Nonspecific T wave abnormality now evident in Inferior leads T wave inversion now evident in Lateral leads Referred By: Ann-Marie Schultz Electronically Signed By:ESPERANZA ASKEW MD
== END 2022-10-13 20:26 | disposition left against medical advice (07) ==
PROVIDERS: Emergency Provider Emergency Medicine; PCP Hospitalist
DX: R10.9 Unspecified abdominal pain (principal); R60.0 Localized edema; R53.1 Weakness; F17.210 Nicotine dependence, cigarettes, uncomplicated; Z71.6 Tobacco abuse counseling; Z79.899 Other long term (current) drug therapy
CPT/HCPCS: 71045; 93005; 99283

== ENCOUNTER 2022-10-15 13:18 | Emergency (ER) | payer MEDICARE, MEDICAID, SELFPAY ==
[2022-10-15 14:09] VITALS: BP 91/57; PULSE 88; RESP 20; TEMP 36.9; O2SAT 100; BMI 22.6
--- NOTE | 2022-10-15 14:20 | ED.GENADULT ---
HPI - General Adult General Chief complaint: General Medical Stated complaint: weakness Time Seen by Provider: 10/15/22 13:37 Source: patient Mode of arrival: EMS Limitations: no limitations History of Present Illness HPI narrative: 32-year-old female with a history of end-stage liver disease, status post 2 liver transplant, who has been on hospice for approximately 1 week. Patient states she has stopped all her medications and has been treated at home by a hospice nurse. She states however she has not been able get enough pain control or anxiety control at home. It is unclear to me but it sounds like the patient got in an argument with the hospice nurse and the hospice nurse is no longer caring for the patient. The patient states that she is having bilateral flank pain, abdominal pain and numbness and weakness of both of her legs. She also states that her vision is blurred. The patient came to emergency department on 10/13/2022 (3 days prior). She had a rapid medical exam and she was complaining of the same symptoms but eloped prior to being seen by a 2nd provider. The patient's fiancetuan Lott is here in the emergency department with the patient as well. Both the patient and her fiance are aware that the patient is dying from liver failure and that there is no further treatment option. The patient told me that she just wants pain medication and she wants to go home with pain medications. She does not want blood worker any treatment at this time and she wants to continue with hospice treatment but is concerned that she is not receiving enough medications at home. The patient states that she did start drinking again. She states that she has been drinking 3 nips of apple vodka per day. Related Data Home Medications Medication Instructions Recorded Confirmed trazodone 50 mg tablet 100 mg PO BEDTIME PRN insomnia 09/25/22 Previous Rx's Medication Instructions Recorded diazepam 5 mg tablet (Valium) 5 mg PO TID PRN muscle spasm #21 09/25/22 tabs morphine 15 mg immediate release 15 mg PO Q4H PRN pain #20 tabs 10/15/22 tablet ondansetron 4 mg disintegrating 4 mg PO Q6-8H PRN nausea and 10/15/22 tablet vomiting #14 tabs Allergies Allergy/AdvReac Type Severity Reaction Status Date / Time acetaminophen [From Vicodin] Allergy Intermediate hives Verified 10/13/22 14:01 hydrocodone [From Vicodin] Allergy Intermediate hives Verified 10/13/22 14:01 tramadol Allergy Intermediate hives Verified 10/13/22 14:01 banana [BANANA] AdvReac Severe DIFFICULTY Verified 10/13/22 14:01 BREATHING seafood AdvReac Hives Verified 10/13/22 14:01 Review of Systems Review of Systems: Yes all other systems are reviewed and are negative PMFSH Past Medical History 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 Asthma CHF (congestive heart failure) Chiari malformation CVA (cerebral vascular accident) Depression Depression with anxiety GI bleed Hepatitis C Hypokalemia Liver failure Liver transplant planned NSVT (nonsustained ventricular tachycardia) Orthostatic hypotension Peptic ulcer disease Seizures Surgical History Gastric bypass status for obesity History of liver transplant Hx of cholecystectomy Family History Family History Father Liver failure Kidney failure History of heart attack Mother Diabetes HTN (hypertension) Social History Social History Household Members: Family Housing: House Do you presently have visiting nurse or other home services: No Unable to assess alcohol history related to: Refusing to respond Alcohol intake: current Alcohol intake frequency: 3 or more drinks per day Alcohol type: hard liquor Patient Tobacco Use Status: Current everyday Tobacco user Tobacco use type: Cigarette Cigarette Packs Per Day: 0.5 Cigarettes Per Day: 10.0 Years Smoked: 12 e-Cigarette/Vaping Use: Never Used Second Hand Smoke Exposure: Yes Substance Use Type: Marijuana Advance Directives: Yes Advance Directives on File: Yes Advance Directives Date on File: 07/27/22 service: No Current occupational status: disabled Cognitive needs: No Hearing needs: No Vision needs: No Physical Exam ED Vital Signs: Vital Signs - 24 hr 10/15/22 14:09 Temperature 98.4 F Pulse Rate 88 Respiratory Rate 20 Blood Pressure 91/57 L Pulse Oximetry 100 Oxygen Delivery Method Room Air BMI result Body Mass Index 22.6 Const Other: Awake, alert, female patient, she is tearful, she does not appear to be in distress, she answers all questions appropriately HENNM Head: Yes normal to inspection, Yes normocephalic and Yes atraumatic Ears: external ears normal General nose exam: Normal external nose present Face and sinus: Yes normal facial exam Mouth: Normal oral and palatal mucosa present Throat: Yes posterior oropharynx normal Eyes Conjunctivae: conjunctival abnormal bilateral conjunctival icterus Pupils: Equal, round and reactive pupils present EOM: EOMs intact bilaterally Neck Neck: Yes normal visual inspection, Yes no lymphadenopathy, Yes trachea midline and Yes supple Chest Chest palpation & inspection: normal inspection of the chest and normal palpation of entire chest wall Resp Effort & Inspection: normal respiratory effort and able to speak in complete sentences Auscultation: clear to auscultation bilaterally Cardio Rate: regular rate Rhythm: regular rhythm Heart sounds: S1 normal heart sound present, S2 normal heart sound present and no murmurs GI Other: Patient's abdomen is distended, she has diffuse tenderness General: Yes no CVA tenderness Back/Spine/Pelvis Back: no CVA tenderness Skin Other: Jaundice Neuro Cranial nerves: Yes CN's II-XII intact bilaterally and Yes Equal, round and reactive pupils present Cognition (Neuro): normal cognition Motor exam (neuro): 5/5 motor strength present throughout Extrem General: Yes normal to inspection Psych Appearance: grossly normal Speech and movement: Normal speech and movement present Affect: Sad affect present Attitude: cooperative Thought process: Normal thought process present Course Course Course Narrative: 32-year-old female with end-stage liver failure who is been on hospice for approximately 1 week. The patient has stopped all of her medications. The patient felt like she was not getting enough pain management or treatment ever anxiety at home and got in argument with her hospice nurse. According to our case picker, the patient fire the hospice service. The patient's examination is consistent with her end-stage liver failure. Patient was ordered to get morphine 30 mg orally and Zofran ODT 4 mg. Case management will try to get the patient into a different hospital service. Given the fact that she is in hospice and stopped all of her medications and does not want treatment, I do not think the blood work is needed at this time. 1556: The case picker was able to research what happened to the patient's hospice care. Apparently, the patient fired the hospice nurse after getting in a fight with the hospice nurse. Our case management is going to try to get the patient a new hospice service but this will not happen today. The patient will be discharged home with a prescription for morphine 15 mg every 4 hours as needed for pain, I will dispense a 5 day supply. The patient's fiancee was instructed to keep the morphine away from the patient and to give her the morphine as directed. Medications Administered Discontinued Medications Generic Name Dose Route Start Last Admin Trade Name Freq PRN Reason Stop Dose Admin Morphine Sulfate 30 mg 10/15/22 14:12 10/15/22 14:25 Morphine Sulfate Immed Release 15 Mg Tablet PO 10/15/22 14:13 30 mg ONCE ONE Administration Ondansetron HCl 4 mg 10/15/22 14:12 10/15/22 14:25 Ondansetron Odt 4 Mg Tab.Rapdis TRANSLINGU 10/15/22 14:13 4 mg ONCE STA Administration Discharge Plan Discharge Clinical Impression: End stage liver disease, Hospice care Patient Disposition: Home, Self-Care Additional Instructions: Our case picker is working on trying to get you a new hospice service to help you with your pain at home. Either the hospice service or our case picker will contact you in the next 1-2 days. In the meantime I am prescribing morphine for you to help with your pain. Take morphine 15 mg pills, 1 pill every 4 hours as needed for pain. Take Zofran ODT 4 mg pills, 1 pill dissolved in your mouth every 8 hours as needed for nausea and vomiting. Please return to the emergency department if your symptoms get worse or if you develop any symptoms that are concerning to you. Prescriptions: New morphine 15 mg tablet 15 mg PO Q4H PRN (Reason: pain) Qty: 20 0RF Rx Instructions: Patient may request partial fill; Partial Fill upon patient request. ondansetron 4 mg tablet,disintegrating 4 mg PO Q6-8H PRN (Reason: nausea and vomiting) Qty: 14 0RF No Action trazodone 50 mg tablet 100 mg PO BEDTIME PRN (Reason: insomnia) diazepam [Valium] 5 mg tablet 5 mg PO TID PRN (Reason: muscle spasm) Qty: 21 0RF
[2022-10-15] MEDS: Morphine Sulfate Immed Release 15 MG TABLET 30 MG PO (14:25)
[2022-10-15] MEDS: Ondansetron ODT 4 MG TAB.RAPDIS TRANSLINGU (14:25)
--- NOTE | 2022-10-15 16:05 | MHC.CM.ED ---
Received case management consult from Dr Mills. Patient came to the ER due to weakness. Per Dr Mills, patient was active [facility]. Patient is unaware of agency name. Patient will need hospice at home. Patient was active with [facility]. Per Itz, hospice nurse, patient revoked hospice on 10/05. No one is in the office to accept patient today. Referral broadcasted in [facility]. No agency has accepted patient at this time. Dr Mills will discharge patient home with morphine and ativan for 5 days. Patient aware she will be leaving the ER before a hospice agency is secured and that CM will call her when one is secured. Continue to monitor for d/c needs.
[2022-10-15] MEDS: LORazepam 0.5 MG TABLET PO (16:35)
--- NOTE | 2022-10-16 13:27 | MHC.CM.ED ---
CM received a call from Roxana at [facility]. Per Roxana, pt will need to call agency to set up intake with RN if she wants services with their agency. Pt was non-compliant and her hospice with them was revoked on 10/05. CM called and left message with patient via product development actuary to return call. CM updated [facility] with request for hospice services. CM received call from [facility] regarding updates. Will call patient at home.
== END 2022-10-15 16:42 | disposition home or self-care (01) ==
PROVIDERS: Emergency Provider Emergency Medicine Emergency Medical Services; PCP Hospitalist
DX: K72.10 Chronic hepatic failure without coma (principal); R53.1 Weakness; F17.210 Nicotine dependence, cigarettes, uncomplicated; Z71.6 Tobacco abuse counseling; Z79.899 Other long term (current) drug therapy
CPT/HCPCS: 99283